=== PATIENT | female | born 1940 | race African-American/Black ===

== ENCOUNTER 2016-09-18 18:54 | Inpatient (IN) | payer BC, MEDICARE ==
[~2016-09-18] VITALS: Ht 172.7 cm; Wt 96.2 kg
[~2016-09-18 18:54] MED LIST: ASPI-482 PO; ATOR20TA PO; BUSP10TA PO; LEXAPRO20 MG PO; LISI1TAB5 PO; PREG150C PO; SENN-6 PO; ZOLP5TAB PO
[2016-09-18 20:56] LABS: BASO % 0 % (0-3); EOS % 1 % (0-3); HEMATOCRIT 37.2 % (36.0-47.0); HEMOGLOBIN 12.8 g/dL (12.0-15.5); LYMPH # 1.5 x10^3/uL (1.0-4.8); LYMPH % 16 % (24-48); MEAN CORPUSCULAR HEMOGLOBIN 32 pg (25-35); MEAN CORPUSCULAR HGB CONC 35 g/dL (31-37); MEAN CORPUSCULAR VOLUME 94 fL (79-100); MONO % 9 % (0-9); NEUT % 73 % (31-73); PLATELET COUNT 285 x10^3/uL (140-400); RED BLOOD COUNT 3.98 x10^6/uL (3.50-5.40); RED CELL DISTRIBUTION WIDTH 13.6 % (11.5-14.5); WHITE BLOOD COUNT 9.3 x10^3/uL (4.0-11.0)
[2016-09-18 21:10] LABS: CALCIUM 8.6 mg/dL (8.5-10.1); CREATININE 0.9 mg/dL (0.6-1.0); GFR 73.9; POTASSIUM 3.2 mmol/L (3.5-5.1)
[2016-09-18 21:15] LABS: ALBUMIN 3.2 g/dL (3.4-5.0); ALBUMIN/GLOBULIN RATIO 0.7 (1.0-1.7); TOTAL BILIRUBIN 0.5 mg/dL (0.2-1.0); TOTAL PROTEIN 7.6 g/dL (6.4-8.2)
[2016-09-18] MEDS: IV NORMAL SALINE 1000ML BAG 1,000 ML IV SCH (22:45)
[2016-09-18] MEDS ORDERED: ONDANSETRON PF 4 MG/2 ML VIAL. IV PRN (22:45)
[2016-09-18 23:45] VITALS: BP 208/96
[2016-09-19] VITALS (8 sets, daily range): BP systolic 145–200; BP diastolic 62–91
--- NOTE | 2016-09-19 01:34 | ED.ADGEN ---
Past Medical History Past Medical History: Cancer, High Cholesterol, Hypertension Additional Past Medical Histor: SBO, uterine ca Past Surgical History: Appendectomy, Cholecystectomy, Hysterectomy, Tonsillectomy Alcohol Use: None Drug Use: None Adult General Chief Complaint Chief Complaint: ABDOMINAL PAIN HPI HPI Patient is a 76 year old [woman, history of hypertension, obesity, uterine cancer, small bowel obstruction, was discharged from the hospital yesterday after admission for small bowel obstruction. Patient states that she was feeling better at discharge, however today she is experiencing increasing pain, abdominal distention, and vomiting. States she is nauseous at this time, denies any blood in emesis, states that she has had several loose bowel movements. Patient denies any injuries, states she has had decreased appetite due to discomfort, denies any fevers or chills, urinary complaints, any chest pain or shortness of breath. Review of Systems Review of Systems Constitutional: Denies fever or chills. [] Eyes: Denies change in visual acuity. [] HENT: Denies nasal congestion or sore throat. [] Respiratory: Denies cough or shortness of breath. [] Cardiovascular: Denies chest pain or edema. [] GI: Crampy diffuse abdominal pain, nausea, vomiting, no bloody stools, several episodes of loose brown stool. : Denies dysuria. [] Musculoskeletal: Denies back pain or joint pain. [] Integument: Denies rash. [] Neurologic: Denies headache, focal weakness or sensory changes. [] Endocrine: Denies polyuria or polydipsia. [] Lymphatic: Denies swollen glands. [] Psychiatric: Denies depression or anxiety. [] Allergies Allergies Allergies Coded Allergies Type Severity Reaction Last Updated Verified Iodinated Contrast- Oral and IV Dye Allergy Intermediate Unknown 10/09/15 Yes Penicillins Allergy Intermediate 10/09/15 Yes Physical Exam Physical Exam Constitutional: Well developed, well nourished, no acute distress, non-toxic appearance. [] HENT: Normocephalic, atraumatic, bilateral external ears normal, oropharynx moist, no oral exudates, nose normal. [] Eyes: PERRLA, EOMI, conjunctiva normal, no discharge. [] Neck: Normal range of motion, no tenderness, supple, no stridor. [] Cardiovascular:Heart rate regular rhythm, no murmur, S1, S2, no rubs or gallops. [] Lungs & Thorax: Bilateral breath sounds clear to auscultation, no wheezing, rhonchi, rales. No chest or crepitus or tenderness. [] Abdomen: Bowel sounds diminished in all quadrants, soft, patient's abdomen is distended and tympanic, tenderness palpation diffusely, no rebound, rigidity, no guarding, no masses, no pulsatile masses. [] Skin: Warm, dry, no erythema, no rash. [] Back: No tenderness, no CVA tenderness. [] Extremities: No tenderness, no cyanosis, no clubbing, ROM intact, no edema. [] Neurologic: Alert and oriented X 3, normal motor function, normal sensory function, no focal deficits noted. [] Psychologic: Affect normal, judgement normal, mood normal. [] Current Patient Data Vital Signs Vital Signs Date Time Temp Pulse Resp B/P (MAP) Pulse Ox O2 Delivery O2 Flow Rate FiO2 09/18/16 19:33 98.0 92 18 207/89 (128) 95 Room Air 98.0 Lab Values Laboratory Tests Test 09/18/16 20:45 White Blood Count 9.3 x10^3/uL (4.0-11.0) Red Blood Count 3.98 x10^6/uL (3.50-5.40) Hemoglobin 12.8 g/dL (12.0-15.5) Hematocrit 37.2 % (36.0-47.0) Mean Corpuscular Volume 94 fL (79-100) Mean Corpuscular Hemoglobin 32 pg (25-35) Mean Corpuscular Hemoglobin Concent 35 g/dL (31-37) Red Cell Distribution Width 13.6 % (11.5-14.5) Platelet Count 285 x10^3/uL (140-400) Neutrophils (%) (Auto) 73 % (31-73) Lymphocytes (%) (Auto) 16 % (24-48) L Monocytes (%) (Auto) 9 % (0-9) Eosinophils (%) (Auto) 1 % (0-3) Basophils (%) (Auto) 0 % (0-3) Neutrophils # (Auto) 6.8 x10^3uL (1.8-7.7) Lymphocytes # (Auto) 1.5 x10^3/uL (1.0-4.8) Monocytes # (Auto) 0.8 x10^3/uL (0.0-1.1) Eosinophils # (Auto) 0.1 x10^3/uL (0.0-0.7) Basophils # (Auto) 0.0 x10^3/uL (0.0-0.2) Sodium Level 143 mmol/L (136-145) Potassium Level 3.2 mmol/L (3.5-5.1) L Chloride Level 103 mmol/L (98-107) Carbon Dioxide Level 28 mmol/L (21-32) Anion Gap 12 (6-14) Blood Urea Nitrogen 6 mg/dL (7-20) L Creatinine 0.9 mg/dL (0.6-1.0) Estimated GFR (Cockcroft-Gault) 73.9 BUN/Creatinine Ratio 7 (6-20) Glucose Level 93 mg/dL (70-99) Calcium Level 8.6 mg/dL (8.5-10.1) Total Bilirubin 0.5 mg/dL (0.2-1.0) Aspartate Amino Transferase (AST) 20 U/L (15-37) Alanine Aminotransferase (ALT) 20 U/L (14-59) Alkaline Phosphatase 76 U/L (46-116) Total Protein 7.6 g/dL (6.4-8.2) Albumin 3.2 g/dL (3.4-5.0) L Albumin/Globulin Ratio 0.7 (1.0-1.7) L Laboratory Tests 09/18/16 20:45 Laboratory Tests 09/18/16 20:45 EKG EKG Not indicated. [] Radiology/Procedures Radiology/Procedures Acute abdominal series: 3 view: Patient with dilated loops of bowel noted, no air-fluid levels, no free air, cardiac silhouette is unremarkable, without evidence of infiltrates or effusion, no bony abnormality is. Concerning for recurrent small bowel obstruction. [] Course & Med Decision Making Course & Med Decision Making Pertinent Labs and Imaging studies reviewed. (See chart for details) Patient received antiemetics, IV fluids and pain medication in the ED. Acute abdominal series is concerning for small bowel obstruction, CT of abdomen and pelvis with oral contrast pending. I did discuss findings as above with Dr. Campoverde of internal medicine, will admit to the hospital nothing by mouth status , bowel rest, IV fluids, symptomatic management, for small bowel obstruction, awaiting results of CT abdomen and pelvis. Consultation for surgery placed, bridge orders entered per discussion. Patient currently with no further vomiting in the ED, no indication for NG tube placement at this time, continue symptom management and monitoring. Patient transferred to the floor without issue, to be brought back down to obtain CT of abdomen and pelvis. Will follow those results. Dragon Disclaimer Dragon Disclaimer This electronic medical record was generated, in whole or in part, using a voice recognition dictation system. Departure Impression: Primary Impression: Small bowel obstruction Additional Impressions: Abdominal pain Nausea and vomiting Disposition: ADMITTED INPATIENT Admitting Physician: Carlos Eduardo Campoverde Condition: IMPROVED Problem Qualifiers ALEJANDRA MONTIEL DO Sep 19, 2016 01:34
--- NOTE | 2016-09-19 01:43 | ACF ---
Admission Forms Criteria INTESTINAL OBSTRUCTION Clinical Indications for Admission to Inpatient Care ([place]/check or initial the applicable condition/criteria) Admission is indicated for 1 or more of the following (1)(2)(3)(4)(5)(6)(7): I. [X] Partial bowel obstruction II. Complete bowel obstruction Extended stay beyond goal length of stay may be needed for(3)(25): [ ]a) Identified etiology (eg, hernia, volvulus, cancer with obstruction) requiring intervention [ ]b) Gallstone ileus (26) [ ]c) Surgical intervention (3)(4)(5)(7)(27)(28)(29)(30): [ ]d) Acute comorbid illness (eg, electrolyte imbalance, hypovolemia, renal failure) The original [employer] content created by [employer] has been revised. The portions of the content which have been revised are identified through the use of italic text or in bold, and [facility] has neither reviewed nor approved the modified material. All other unmodified content is copyright [facility] includes the [facility]. Please see references footnoted in the original [employer] edition 2017 Admission Criteria Met?: Yes MARITZA KC Sep 19, 2016 01:43
[2016-09-19] MEDS ORDERED: hydrALAZINE 20 MG/ML VIAL. IVP PRN (01:45)
[2016-09-19] MEDS ORDERED: POTASSIUM CHLORIDE 30 MEQ in IV NORMAL SALINE 1000ML BAG 1,000 ML IV ONE (01:45)
--- NOTE | 2016-09-19 02:58 | RAD ---
INDICATION: abd pain; nausea, vomiting; eval for sbo; Readicat 450ml COMPARISON: September 07, 2016 TECHNIQUE: Axial CT images were obtained through the abdomen and pelvis without intravenous contrast. Limited assessment of solid organ structures and vasculature secondary to lack of intravenous contrast. One or more of the following individualized dose reduction techniques were utilized for this examination: 1. Automated exposure control; 2. Adjustment of the mA and/or kV according to patient size; 3. Use of iterative reconstruction technique. FINDINGS: Severe calcific atherosclerosis. Coronary artery calcific atherosclerosis partially seen. Catheter tip seen in right atrial region. No intrahepatic bile duct dilation. Poor evaluation of pancreas without contrast but no definite peripancreatic edema. Spleen unremarkable. No hydronephrosis. Bladder partially distended. Free fluid is seen within the abdomen. Colonic diverticulosis. Dilated loops of small bowel are seen proximally with distal decompression. There is also some edema within the mesentery. The small bowel loops measure up to approximately 52 mm in diameter. IMPRESSION: 1. Dilated small bowel loops with distal decompression. There is also fluid and edema seen within the mesentery. This can be seen with small bowel obstruction. 2. Calcific atherosclerosis. Electronically signed by: Manny Pate MD (09/19/2016 2:54 AM) [facility]
[2016-09-19] MEDS: fentaNYL PF VIAL 100 MCG/2 ML VIAL IV PRN ×3 (02:59→08:14)
[2016-09-19] MEDS ORDERED: MAG HYDROX/ALUMINUM HYD/SIMETH 30 ML ORAL.SUSP PO ONE (06:00)
[2016-09-19 06:15] LABS: BASO % 0 % (0-3); EOS % 1 % (0-3); HEMATOCRIT 37.5 % (36.0-47.0); HEMOGLOBIN 12.9 g/dL (12.0-15.5); LYMPH # 1.8 x10^3/uL (1.0-4.8); LYMPH % 18 % (24-48); MEAN CORPUSCULAR HEMOGLOBIN 33 pg (25-35); MEAN CORPUSCULAR HGB CONC 35 g/dL (31-37); MEAN CORPUSCULAR VOLUME 95 fL (79-100); MONO % 10 % (0-9); NEUT % 71 % (31-73); PLATELET COUNT 290 x10^3/uL (140-400); RED BLOOD COUNT 3.96 x10^6/uL (3.50-5.40); RED CELL DISTRIBUTION WIDTH 14.3 % (11.5-14.5); WHITE BLOOD COUNT 9.8 x10^3/uL (4.0-11.0)
[2016-09-19 06:25] LABS: CALCIUM 8.9 mg/dL (8.5-10.1); CREATININE 0.9 mg/dL (0.6-1.0); GFR 73.9; POTASSIUM 3.5 mmol/L (3.5-5.1)
[2016-09-19] MEDS: IV NORMAL SALINE 1000ML BAG 1,000 ML IV SCH ×2 (06:45→11:01)
[2016-09-19] MEDS: FAMOTIDINE 20 MG/2 ML VIAL IVP SCH ×2 (08:14→19:57)
--- NOTE | 2016-09-19 08:23 | RAD ---
Indication abdominal pain and vomiting for 3 days. A single view of the chest was obtained as well as flat and upright films of the abdomen. Note is made of a similar series of films 9 days ago. Postoperative changes in the chest are noted. There is a left Port-A-Cath. There is no congestive heart failure focal infiltrate significant pleural fluid collection or pneumothorax. There is no free air. There is significant dilatation of small bowel loops. Some gas is seen in the right colon but no significant gas is seen in the transverse or descending colon. The plain film findings are compatible with at least moderate bowel obstruction. No gross free air is seen. IMPRESSION: No acute finding in the chest. Plain films of the abdomen compatible with a component of bowel obstruction.
[2016-09-19] MEDS ORDERED: ACETAMINOPHEN 325 MG TABLET. PO PRN (09:30)
[2016-09-19] MEDS ORDERED: MORPHINE SULFATE 2 MG/ML DISP.SYRIN. IV PRN (09:30)
[2016-09-19] MEDS ORDERED: DOCUSATE SODIUM 100 MG CAPSULE. PO PRN (09:30)
[2016-09-19] MEDS ORDERED: BARIUM SULFATE 60% 355 ML SUSP PO ONE ×2 (10:00)
--- NOTE | 2016-09-19 10:03 | PDOC2 ---
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 Returned with abdominal pain, denies vomiting, + loose stools, however very bloated/tight abdomen. Past Medical History Cardiovascular: CAD, HTN Heme/Onc: Cancer Renal/: Other Endocrine: Diabetes Past Surgical History Past Surgical History: CABG, Hysterectomy Family History Family History: Other (noncontributory to current illness ) Social History Quit ALCOHOL: none Drugs: None Lives: Alone Current Problem List Problem List Problems Medical Problems: (1) Abdominal pain Status: Acute (2) Nausea and vomiting Status: Acute Current Medications Current Medications Current Medications Ondansetron HCl (Zofran) 4 mg PRN Q8HRS PRN IV NAUSEA/VOMITING Last administered on 09/19/16 02:59; Start 09/18/16 at 22:45; Stop 09/19/16 at 22:44 Fentanyl Citrate (Fentanyl 2ml Vial) 50 mcg PRN Q2HR PRN IV PAIN Last administered on 09/19/16 08:14; Start 09/18/16 at 22:45; Stop 09/19/16 at 22:44 Sodium Chloride 1,000 ml @ 125 mls/hr Q8H IV Last administered on 09/18/16 22 :45; Start 09/18/16 at 22:45; Stop 09/19/16 at 22:44 Hydralazine HCl (Apresoline) 10 mg PRN Q4HRS PRN IVP ELEVATED BP, SEE COMMENTS Last administered on 09/19/16 01:55; Start 09/19/16 at 01:45 Potassium Chloride 30 meq/ Sodium Chloride 1,015 ml @ 125 mls/hr 1X ONCE IV Last administered on 09/19/16 03:07; Start 09/19/16 at 01:45; Stop 09/19/16 at 09:52; Status DC Al Hydroxide/Mg Hydroxide (Mylanta Plus Xs) 15 ml 1X ONCE PO Last administered on 09/19/16 05:50; Start 09/19/16 at 06:00; Stop 09/19/16 at 06:01 ; Status DC Famotidine (Pepcid) 20 mg BID IVP Last administered on 09/19/16t 08:14; Start 09/19/16 at 09:00 Acetaminophen (Tylenol) 650 mg PRN Q6HRS PRN PO FEVER; Start 09/19/16 at 09:30 Ondansetron HCl (Zofran) 4 mg PRN Q6HRS PRN IV NAUSEA/VOMITING; Start 09/19/16 at 09:30 Morphine Sulfate 2 mg PRN Q2HR PRN IV PAIN; Start 09/19/16 at 09:30; Stop 09/19 at 09:56; Status DC Tramadol HCl (Ultram) 50 mg PRN Q6HRS PRN PO PAIN; Start 09/19/16 at 09:30 Hydralazine HCl (Apresoline) 10 mg PRN Q4HRS PRN IVP ELEVATED BP, SEE COMMENTS ; Start 09/19/16 at 09:30 Docusate Sodium (Colace) 100 mg PRN DAILY PRN PO CONSTIPATION; Start 09/19/16 at 09:30 Barium Sulfate (Liquid E-Z Paque) 355 ml 1X ONCE PO ; Start 09/19/16 at 10:00; Stop 09/19/16 at 10:01 Barium Sulfate (Liquid E-Z Paque) 355 ml 1X ONCE PO ; Start 09/19/16 at 10:00; Stop 09/19/16 at 10:01 Morphine Sulfate 2 mg PRN Q2HR PRN IV PAIN; Start 09/19/16 at 10:00 Active Scripts Active Senna S Tablet (Sennosides/Docusate Sodium) 1 Each Tablet 1 Each PO DAILY Reported Lexapro (Escitalopram Oxalate) 20 Mg Tablet 1 Tab PO DAILY Lisinopril-Hctz 20-12.5 Mg Tab (Lisinopril/Hydrochlorothiazide) 1 Each Tablet 1 Tab PO DAILY Lipitor (Atorvastatin Calcium) 20 Mg Tablet 20 Mg PO HS Ambien (Zolpidem Tartrate) 5 Mg Tablet 1 Tab PO QHS Lyrica (Pregabalin) 150 Mg Capsule 150 Mg PO BID 30 Days Buspirone Hcl 10 Mg Tablet 10 Mg PO BID Aspir 81 (Aspirin) 81 Mg Tablet.dr 1 Tab PO DAILY Allergies Allergies: Coded Allergies: Iodinated Contrast- Oral and IV Dye (Verified Allergy, Intermediate, Unknown, 10/09/15) Penicillins (Verified Allergy, Intermediate, 10/09/15) ROS General: No: Chills, Other (fevers) PSYCHOLOGICAL ROS: No: Anxiety, Depression Eyes: No Blurry vision, No Double vision HEENT: No: Heacaches, Sore Throat Hematological and Lymphatic: No: Bleeding Problems, Blood Clots Respiratory: No: Cough, Shortness of breath Cardiovascular: No Chest Pain, No Palpitations Gastrointestinal: Yes Other (see hpi) Genitourinary: No Dysuria, No Hematuria Musculoskeletal: No Joint Pain, No Muscle Pain Neurological: No Impaired Coord/balance, No Numbness/Tingling Skin: No Pruritus, No Rash Physical Exam General: Alert, Oriented X3, Cooperative, No acute distress HEENT: PERRLA, Mucous membr. moist/pink Lungs: Clear to auscultation, Normal air movement Heart: Regular rate, Normal S1, Normal S2, No murmurs Abdomen: Soft, Other (moderate distention, nontender) Extremities: No clubbing, No cyanosis Skin: No rashes, No breakdown Neuro: Normal gait, Normal speech Psych/Mental Status: Mental status NL, Mood NL MUSCULOSKELETAL: No deformity, No swelling Vitals VITALS Vital Signs Date Time Temp Pulse Resp B/P (MAP) Pulse Ox O2 Delivery O2 Flow Rate FiO2 09/19/16 08:44 Room Air 09/19/16 07:00 98.4 83 20 179/69 (105) 95 98.4 Labs Labs Laboratory Tests Test 09/18/16 20:45 09/19/16 00:01 09/19/16 04:30 White Blood Count 9.3 x10^3/uL (4.0-11.0) 9.8 x10^3/uL (4.0-11.0) Red Blood Count 3.98 x10^6/uL (3.50-5.40) 3.96 x10^6/uL (3.50-5.40) Hemoglobin 12.8 g/dL (12.0-15.5) 12.9 g/dL (12.0-15.5) Hematocrit 37.2 % (36.0-47.0) 37.5 % (36.0-47.0) Mean Corpuscular Volume 94 fL (79-100) 95 fL (79-100) Mean Corpuscular Hemoglobin 32 pg (25-35) 33 pg (25-35) Mean Corpuscular Hemoglobin Concent 35 g/dL (31-37) 35 g/dL (31-37) Red Cell Distribution Width 13.6 % (11.5-14.5) 14.3 % (11.5-14.5) Platelet Count 285 x10^3/uL (140-400) 290 x10^3/uL (140-400) Neutrophils (%) (Auto) 73 % (31-73) 71 % (31-73) Lymphocytes (%) (Auto) 16 % (24-48) 18 % (24-48) Monocytes (%) (Auto) 9 % (0-9) 10 % (0-9) Eosinophils (%) (Auto) 1 % (0-3) 1 % (0-3) Basophils (%) (Auto) 0 % (0-3) 0 % (0-3) Neutrophils # (Auto) 6.8 x10^3uL (1.8-7.7) 6.9 x10^3uL (1.8-7.7) Lymphocytes # (Auto) 1.5 x10^3/uL (1.0-4.8) 1.8 x10^3/uL (1.0-4.8) Monocytes # (Auto) 0.8 x10^3/uL (0.0-1.1) 1.0 x10^3/uL (0.0-1.1) Eosinophils # (Auto) 0.1 x10^3/uL (0.0-0.7) 0.1 x10^3/uL (0.0-0.7) Basophils # (Auto) 0.0 x10^3/uL (0.0-0.2) 0.0 x10^3/uL (0.0-0.2) Sodium Level 143 mmol/L (136-145) 144 mmol/L (136-145) Potassium Level 3.2 mmol/L (3.5-5.1) 3.5 mmol/L (3.5-5.1) Chloride Level 103 mmol/L (98-107) 103 mmol/L (98-107) Carbon Dioxide Level 28 mmol/L (21-32) 30 mmol/L (21-32) Anion Gap 12 (6-14) 11 (6-14) Blood Urea Nitrogen 6 mg/dL (7-20) 6 mg/dL (7-20) Creatinine 0.9 mg/dL (0.6-1.0) 0.9 mg/dL (0.6-1.0) Estimated GFR (Cockcroft-Gault) 73.9 73.9 BUN/Creatinine Ratio 7 (6-20) Glucose Level 93 mg/dL (70-99) 69 mg/dL (70-99) Calcium Level 8.6 mg/dL (8.5-10.1) 8.9 mg/dL (8.5-10.1) Total Bilirubin 0.5 mg/dL (0.2-1.0) Aspartate Amino Transf (AST/SGOT) 20 U/L (15-37) Alanine Aminotransferase (ALT/SGPT) 20 U/L (14-59) Alkaline Phosphatase 76 U/L (46-116) Total Protein 7.6 g/dL (6.4-8.2) Albumin 3.2 g/dL (3.4-5.0) Albumin/Globulin Ratio 0.7 (1.0-1.7) Lactic Acid Level 1.1 mmol/L (0.4-2.0) Laboratory Tests Test 09/18/16 20:45 09/19/16 00:01 09/19/16 04:30 White Blood Count 9.3 x10^3/uL (4.0-11.0) 9.8 x10^3/uL (4.0-11.0) Red Blood Count 3.98 x10^6/uL (3.50-5.40) 3.96 x10^6/uL (3.50-5.40) Hemoglobin 12.8 g/dL (12.0-15.5) 12.9 g/dL (12.0-15.5) Hematocrit 37.2 % (36.0-47.0) 37.5 % (36.0-47.0) Mean Corpuscular Volume 94 fL (79-100) 95 fL (79-100) Mean Corpuscular Hemoglobin 32 pg (25-35) 33 pg (25-35) Mean Corpuscular Hemoglobin Concent 35 g/dL (31-37) 35 g/dL (31-37) Red Cell Distribution Width 13.6 % (11.5-14.5) 14.3 % (11.5-14.5) Platelet Count 285 x10^3/uL (140-400) 290 x10^3/uL (140-400) Neutrophils (%) (Auto) 73 % (31-73) 71 % (31-73) Lymphocytes (%) (Auto) 16 % (24-48) 18 % (24-48) Monocytes (%) (Auto) 9 % (0-9) 10 % (0-9) Eosinophils (%) (Auto) 1 % (0-3) 1 % (0-3) Basophils (%) (Auto) 0 % (0-3) 0 % (0-3) Neutrophils # (Auto) 6.8 x10^3uL (1.8-7.7) 6.9 x10^3uL (1.8-7.7) Lymphocytes # (Auto) 1.5 x10^3/uL (1.0-4.8) 1.8 x10^3/uL (1.0-4.8) Monocytes # (Auto) 0.8 x10^3/uL (0.0-1.1) 1.0 x10^3/uL (0.0-1.1) Eosinophils # (Auto) 0.1 x10^3/uL (0.0-0.7) 0.1 x10^3/uL (0.0-0.7) Basophils # (Auto) 0.0 x10^3/uL (0.0-0.2) 0.0 x10^3/uL (0.0-0.2) Sodium Level 143 mmol/L (136-145) 144 mmol/L (136-145) Potassium Level 3.2 mmol/L (3.5-5.1) 3.5 mmol/L (3.5-5.1) Chloride Level 103 mmol/L (98-107) 103 mmol/L (98-107) Carbon Dioxide Level 28 mmol/L (21-32) 30 mmol/L (21-32) Anion Gap 12 (6-14) 11 (6-14) Blood Urea Nitrogen 6 mg/dL (7-20) 6 mg/dL (7-20) Creatinine 0.9 mg/dL (0.6-1.0) 0.9 mg/dL (0.6-1.0) Estimated GFR (Cockcroft-Gault) 73.9 73.9 BUN/Creatinine Ratio 7 (6-20) Glucose Level 93 mg/dL (70-99) 69 mg/dL (70-99) Calcium Level 8.6 mg/dL (8.5-10.1) 8.9 mg/dL (8.5-10.1) Total Bilirubin 0.5 mg/dL (0.2-1.0) Aspartate Amino Transf (AST/SGOT) 20 U/L (15-37) Alanine Aminotransferase (ALT/SGPT) 20 U/L (14-59) Alkaline Phosphatase 76 U/L (46-116) Total Protein 7.6 g/dL (6.4-8.2) Albumin 3.2 g/dL (3.4-5.0) Albumin/Globulin Ratio 0.7 (1.0-1.7) Lactic Acid Level 1.1 mmol/L (0.4-2.0) Images Images reviewed CT/xrays Assessment/Plan Assessment/Plan sb dilation concerning for SBO, recent SBO having loose stools, cdiff pending will place NG to LIS for decompression will check acute abdominal films in AM d/w Dr Albright--hold off on SBFT(no barium--as has possible SBO) ROMI BARBOZA MD 09/19/16 1505: CONSULT Allergies Allergies: Coded Allergies: Iodinated Contrast- Oral and IV Dye (Verified Allergy, Intermediate, Unknown, 10/09/15) Penicillins (Verified Allergy, Intermediate, 10/09/15) Assessment/Plan Assessment/Plan pt seen, interviewed and examined agree with above Dr Carrillo to follow over the weekend Thanks for consult XAVIER POLK APRN Sep 19, 2016 10:03 ROMI BARBOZA MD Sep 19, 2016 15:05
[2016-09-19] MEDS: MORPHINE SULFATE 4 MG/ML DISP.SYRIN. IV PRN ×2 (10:09→13:37)
[2016-09-19] MEDS ORDERED: PHENOL ORAL SPRAY 177ML BOTTLE. PO PRN (10:15)
--- NOTE | 2016-09-19 10:32 | RAD ---
Indication distended abdomen. A single view of the abdomen was obtained at 09 27 and is compared to a study approximately 13 hours earlier. There are dilated loops of small bowel similar to the previous exam. There has not been a significant change in the appearance of the abdomen on the single film obtained relative to the prior exam. IMPRESSION:: Persistent dilatation of small bowel loops similar to the examination approximately 13 hours earlier
--- NOTE | 2016-09-19 12:18 | PDOC1 ---
History and Physical Date of Admission Date of Admission 09/18/16 Identification/Chief Complaint Chief Complaint abd pain Problems: Source Source: Chart review, Patient History of Present Illness History of Present Illness HPI HPI Patient is a 76 year old [woman, history of hypertension, obesity, uterine cancer, small bowel obstruction, was dced from here on Thu for sbo. pt had one time N/V on Thu, then started to have severe abd pain on . She said she was not prescribed pain meds when dced. The pain is located at whole abd, mainly middle, constant, 09/18. She now feels abd pain much better with meds, but has severe distended abd, has BM today, no N/V. CT showed sbo. no fever, chills, sob, cough. Past Medical History Cardiovascular: CAD, HTN Heme/Onc: Cancer Renal/: Other Endocrine: Diabetes Past Surgical History Past Surgical History: CABG, Hysterectomy Family History Family History: Other (noncontributory to current illness ) Social History Smoke: No ALCOHOL: none Drugs: None Current Problem List Problem List Problems Medical Problems: (1) Abdominal pain Status: Acute (2) Nausea and vomiting Status: Acute Current Medications Current Medications Current Medications Medications (Trade) Dose Ordered Sig/Marco Start Time Stop Time Status Last Admin Dose Admin Acetaminophen (Tylenol) 650 mg PRN Q6HRS PRN 09/19/16 09:30 Al Hydroxide/Mg Hydroxide (Mylanta Plus Xs) 15 ml 1X ONCE 09/19/16 06:00 09/19/16 06:01 DC 09/19/16 05:50 15 ML Barium Sulfate (Liquid E-Z Paque) 355 ml 1X ONCE 09/19/16 10:00 09/19/16 10:01 DC Docusate Sodium (Colace) 100 mg PRN DAILY PRN 09/19/16 09:30 Famotidine (Pepcid) 20 mg BID 09/19/16 09:00 09/19/16 08:14 20 MG Fentanyl Citrate (Fentanyl 2ml Vial) 50 mcg PRN Q2HR PRN 09/18/16 22:45 09/19/16 22:44 09/19/16 08:14 50 MCG Hydralazine HCl (Apresoline) 10 mg PRN Q4HRS PRN 09/19/16 09:30 Morphine Sulfate 2 mg PRN Q2HR PRN 09/19/16 10:00 09/19/16 10:09 2 MG Ondansetron HCl (Zofran) 4 mg PRN Q6HRS PRN 09/19/16 09:30 Potassium Chloride 30 meq/ Sodium Chloride 1,015 ml @ 125 mls/hr 1X ONCE 09/19/16 01:45 09/19/16 09:52 DC 09/19/16 03:07 125 MLS/HR Sodium Chloride 1,000 ml @ 125 mls/hr Q8H 09/18/16 22:45 09/19/16 22:44 09/19/16 11:01 125 MLS/HR Throat Lozenges (Chloraseptic) 1 spray PRN Q2HR PRN 09/19/16 10:15 09/19/16 11:01 1 SPRAY Tramadol HCl (Ultram) 50 mg PRN Q6HRS PRN 09/19/16 09:30 Allergies Allergies Allergies Coded Allergies Type Severity Reaction Last Updated Verified Iodinated Contrast- Oral and IV Dye Allergy Intermediate Unknown 10/09/15 Yes Penicillins Allergy Intermediate 10/09/15 Yes ROS Review of System CONSTITUTIONAL: No fever or chills EYES: No recent changes SKIN: No rash or itching CARDIOVASCULAR: No chest pain, syncope, palpitations, or edema RESPIRATORY: No SOB or cough GASTROINTESTINAL: No nausea, vomiting or abdominal pain NEUROLOGICAL: No headaches or weakness ENDOCRINE: No cold or heat intolerance GENITOURINARY: No urgency or frequency of urination MUSCULOSKELETAL: No back pain or joint pain LYMPHATICS: No enlarged lymph nodes PSYCHIATRIC: No anxiety or depression Physical Exam Physical Exam GEN.: No apparent distress. Alert and oriented. HEENT: Head is normocephalic, atraumatic NECK: Supple. LUNGS: Clear to auscultation. HEART: RRR, S1, S2 present. Peripheral pulses intact. bl sternal border 3/6 systolic murmur. ABDOMEN: Sot, decreased bs, moderate distended abd, mild tenderness EXTREMITIES: Without any cyanosis. NEUROLOGIC: Normal speech, normal tone PSYCHIATRIC: Normal affect, normal mood. SKIN: No ulcerations Vitals Vitals Vital Signs Date Time Temp Pulse Resp B/P (MAP) Pulse Ox O2 Delivery O2 Flow Rate FiO2 09/19/16 11:00 98.1 68 20 145/63 (90) 91 Room Air 98.1 Labs Labs Laboratory Tests Test 09/18/16 20:45 09/19/16 00:01 09/19/16 04:30 White Blood Count 9.3 x10^3/uL (4.0-11.0) 9.8 x10^3/uL (4.0-11.0) Red Blood Count 3.98 x10^6/uL (3.50-5.40) 3.96 x10^6/uL (3.50-5.40) Hemoglobin 12.8 g/dL (12.0-15.5) 12.9 g/dL (12.0-15.5) Hematocrit 37.2 % (36.0-47.0) 37.5 % (36.0-47.0) Mean Corpuscular Volume 94 fL (79-100) 95 fL (79-100) Mean Corpuscular Hemoglobin 32 pg (25-35) 33 pg (25-35) Mean Corpuscular Hemoglobin Concent 35 g/dL (31-37) 35 g/dL (31-37) Red Cell Distribution Width 13.6 % (11.5-14.5) 14.3 % (11.5-14.5) Platelet Count 285 x10^3/uL (140-400) 290 x10^3/uL (140-400) Neutrophils (%) (Auto) 73 % (31-73) 71 % (31-73) Lymphocytes (%) (Auto) 16 % (24-48) 18 % (24-48) Monocytes (%) (Auto) 9 % (0-9) 10 % (0-9) Eosinophils (%) (Auto) 1 % (0-3) 1 % (0-3) Basophils (%) (Auto) 0 % (0-3) 0 % (0-3) Neutrophils # (Auto) 6.8 x10^3uL (1.8-7.7) 6.9 x10^3uL (1.8-7.7) Lymphocytes # (Auto) 1.5 x10^3/uL (1.0-4.8) 1.8 x10^3/uL (1.0-4.8) Monocytes # (Auto) 0.8 x10^3/uL (0.0-1.1) 1.0 x10^3/uL (0.0-1.1) Eosinophils # (Auto) 0.1 x10^3/uL (0.0-0.7) 0.1 x10^3/uL (0.0-0.7) Basophils # (Auto) 0.0 x10^3/uL (0.0-0.2) 0.0 x10^3/uL (0.0-0.2) Sodium Level 143 mmol/L (136-145) 144 mmol/L (136-145) Potassium Level 3.2 mmol/L (3.5-5.1) 3.5 mmol/L (3.5-5.1) Chloride Level 103 mmol/L (98-107) 103 mmol/L (98-107) Carbon Dioxide Level 28 mmol/L (21-32) 30 mmol/L (21-32) Anion Gap 12 (6-14) 11 (6-14) Blood Urea Nitrogen 6 mg/dL (7-20) 6 mg/dL (7-20) Creatinine 0.9 mg/dL (0.6-1.0) 0.9 mg/dL (0.6-1.0) Estimated GFR (Cockcroft-Gault) 73.9 73.9 BUN/Creatinine Ratio 7 (6-20) Glucose Level 93 mg/dL (70-99) 69 mg/dL (70-99) Calcium Level 8.6 mg/dL (8.5-10.1) 8.9 mg/dL (8.5-10.1) Total Bilirubin 0.5 mg/dL (0.2-1.0) Aspartate Amino Transf (AST/SGOT) 20 U/L (15-37) Alanine Aminotransferase (ALT/SGPT) 20 U/L (14-59) Alkaline Phosphatase 76 U/L (46-116) Total Protein 7.6 g/dL (6.4-8.2) Albumin 3.2 g/dL (3.4-5.0) Albumin/Globulin Ratio 0.7 (1.0-1.7) Lactic Acid Level 1.1 mmol/L (0.4-2.0) Laboratory Tests Test 09/18/16 20:45 09/19/16 00:01 09/19/16 04:30 White Blood Count 9.3 x10^3/uL (4.0-11.0) 9.8 x10^3/uL (4.0-11.0) Red Blood Count 3.98 x10^6/uL (3.50-5.40) 3.96 x10^6/uL (3.50-5.40) Hemoglobin 12.8 g/dL (12.0-15.5) 12.9 g/dL (12.0-15.5) Hematocrit 37.2 % (36.0-47.0) 37.5 % (36.0-47.0) Mean Corpuscular Volume 94 fL (79-100) 95 fL (79-100) Mean Corpuscular Hemoglobin 32 pg (25-35) 33 pg (25-35) Mean Corpuscular Hemoglobin Concent 35 g/dL (31-37) 35 g/dL (31-37) Red Cell Distribution Width 13.6 % (11.5-14.5) 14.3 % (11.5-14.5) Platelet Count 285 x10^3/uL (140-400) 290 x10^3/uL (140-400) Neutrophils (%) (Auto) 73 % (31-73) 71 % (31-73) Lymphocytes (%) (Auto) 16 % (24-48) 18 % (24-48) Monocytes (%) (Auto) 9 % (0-9) 10 % (0-9) Eosinophils (%) (Auto) 1 % (0-3) 1 % (0-3) Basophils (%) (Auto) 0 % (0-3) 0 % (0-3) Neutrophils # (Auto) 6.8 x10^3uL (1.8-7.7) 6.9 x10^3uL (1.8-7.7) Lymphocytes # (Auto) 1.5 x10^3/uL (1.0-4.8) 1.8 x10^3/uL (1.0-4.8) Monocytes # (Auto) 0.8 x10^3/uL (0.0-1.1) 1.0 x10^3/uL (0.0-1.1) Eosinophils # (Auto) 0.1 x10^3/uL (0.0-0.7) 0.1 x10^3/uL (0.0-0.7) Basophils # (Auto) 0.0 x10^3/uL (0.0-0.2) 0.0 x10^3/uL (0.0-0.2) Sodium Level 143 mmol/L (136-145) 144 mmol/L (136-145) Potassium Level 3.2 mmol/L (3.5-5.1) 3.5 mmol/L (3.5-5.1) Chloride Level 103 mmol/L (98-107) 103 mmol/L (98-107) Carbon Dioxide Level 28 mmol/L (21-32) 30 mmol/L (21-32) Anion Gap 12 (6-14) 11 (6-14) Blood Urea Nitrogen 6 mg/dL (7-20) 6 mg/dL (7-20) Creatinine 0.9 mg/dL (0.6-1.0) 0.9 mg/dL (0.6-1.0) Estimated GFR (Cockcroft-Gault) 73.9 73.9 BUN/Creatinine Ratio 7 (6-20) Glucose Level 93 mg/dL (70-99) 69 mg/dL (70-99) Calcium Level 8.6 mg/dL (8.5-10.1) 8.9 mg/dL (8.5-10.1) Total Bilirubin 0.5 mg/dL (0.2-1.0) Aspartate Amino Transf (AST/SGOT) 20 U/L (15-37) Alanine Aminotransferase (ALT/SGPT) 20 U/L (14-59) Alkaline Phosphatase 76 U/L (46-116) Total Protein 7.6 g/dL (6.4-8.2) Albumin 3.2 g/dL (3.4-5.0) Albumin/Globulin Ratio 0.7 (1.0-1.7) Lactic Acid Level 1.1 mmol/L (0.4-2.0) VTE Prophylaxis Ordered VTE Prophylaxis Devices: Yes VTE Pharmacological Prophylaxi: Yes Assessment/Plan Assessment/Plan sbo, 2/2 adhesion likely recent sbo self resolved htn urgency hld h/o CAD post CABG dm2 on diet control hypokalemia obesity plan: fu with sx, kUB repeated showed sbo, AXR tmr NGT npo ivf hold po home meds dvt, gi ppx pain control SELVIN PIMENTEL MD Sep 19, 2016 12:18
--- NOTE | 2016-09-19 12:19 | RAD ---
Indication assess nasogastric tube placement. A film targeted to the lower chest and upper abdomen was obtained. Dilated loops of bowel are seen. A nasogastric tube has its tip in the body of the stomach. IMPRESSION: NG tube in the stomach
[2016-09-19] MEDS: HEPARIN PF for SUB-Q USE 5,000 UNIT/0.5 ML VIAL. SQ SCH ×2 (13:44→22:47)
[2016-09-19] MEDS: hydrALAZINE 20 MG/ML VIAL. IVP PRN (19:57)
[2016-09-20 03:00] VITALS: BP 140/61
[2016-09-20 05:15] LABS: BASO % 0 % (0-3); EOS % 1 % (0-3); HEMATOCRIT 35.1 % (36.0-47.0); HEMOGLOBIN 11.7 g/dL (12.0-15.5); LYMPH # 1.5 x10^3/uL (1.0-4.8); LYMPH % 22 % (24-48); MEAN CORPUSCULAR HEMOGLOBIN 32 pg (25-35); MEAN CORPUSCULAR HGB CONC 33 g/dL (31-37); MEAN CORPUSCULAR VOLUME 96 fL (79-100); MONO % 10 % (0-9); NEUT % 68 % (31-73); PLATELET COUNT 270 x10^3/uL (140-400); RED BLOOD COUNT 3.64 x10^6/uL (3.50-5.40); RED CELL DISTRIBUTION WIDTH 13.9 % (11.5-14.5); WHITE BLOOD COUNT 7.2 x10^3/uL (4.0-11.0)
[2016-09-20 05:32] LABS: CALCIUM 8.1 mg/dL (8.5-10.1); CREATININE 0.8 mg/dL (0.6-1.0); GFR 84.6; POTASSIUM 3.7 mmol/L (3.5-5.1)
[2016-09-20] MEDS: HEPARIN PF for SUB-Q USE 5,000 UNIT/0.5 ML VIAL. SQ SCH ×3 (05:36→22:33)
[2016-09-20 07:29] VITALS: BP 177/55
[2016-09-20] MEDS: FAMOTIDINE 20 MG/2 ML VIAL IVP SCH ×2 (08:08→22:32)
[2016-09-20] MEDS: AMINO AC 3%/ELECTROLYTE/GLYCER 1,000 ML IV SCH ×2 (08:59→22:32)
[2016-09-20] MEDS: MORPHINE SULFATE 4 MG/ML DISP.SYRIN. IV PRN ×4 (09:30→20:14)
[2016-09-20 11:00] VITALS: BP 166/69
--- NOTE | 2016-09-20 11:43 | PDOC ---
PROGRESS NOTES Chief Complaint Chief Complaint CC abdominal pain (SBO) Uterine CA hypercholesterolemia HTN SBO History of Present Illness History of Present Illness 76 y/o F with CC of abdominal pain (diagnosed as SBO) pt was AO3, pleasant but appeared weak pt was assessed at bedside and complained of being bloated pt was on active NG suction (LOW intermittent - 300 cc greenish color liquid) hold off on SBFT until surgery agrees pt was on PPN low bgl 65 will give half amp of d50 as per ERICKA RN Vitals Vitals Vital Signs Date Time Temp Pulse Resp B/P (MAP) Pulse Ox O2 Delivery O2 Flow Rate FiO2 09/20/16 11:00 97.5 69 16 166/69 (101) 97 Room Air 97.5 Physical Exam General: Alert, Oriented X3, Cooperative, No acute distress Heart: Regular rate, Normal S1, Normal S2, No murmurs Lungs: Clear, Other Abdomen: Soft, Other (bloating and tightness) Extremities: No clubbing, No cyanosis Skin: No rashes, No breakdown Labs LABS Laboratory Tests Test 09/20/16 04:40 09/20/16 11:22 White Blood Count 7.2 x10^3/uL (4.0-11.0) Red Blood Count 3.64 x10^6/uL (3.50-5.40) Hemoglobin 11.7 g/dL (12.0-15.5) Hematocrit 35.1 % (36.0-47.0) Mean Corpuscular Volume 96 fL (79-100) Mean Corpuscular Hemoglobin 32 pg (25-35) Mean Corpuscular Hemoglobin Concent 33 g/dL (31-37) Red Cell Distribution Width 13.9 % (11.5-14.5) Platelet Count 270 x10^3/uL (140-400) Neutrophils (%) (Auto) 68 % (31-73) Lymphocytes (%) (Auto) 22 % (24-48) Monocytes (%) (Auto) 10 % (0-9) Eosinophils (%) (Auto) 1 % (0-3) Basophils (%) (Auto) 0 % (0-3) Neutrophils # (Auto) 4.9 x10^3uL (1.8-7.7) Lymphocytes # (Auto) 1.5 x10^3/uL (1.0-4.8) Monocytes # (Auto) 0.7 x10^3/uL (0.0-1.1) Eosinophils # (Auto) 0.1 x10^3/uL (0.0-0.7) Basophils # (Auto) 0.0 x10^3/uL (0.0-0.2) Sodium Level 142 mmol/L (136-145) Potassium Level 3.7 mmol/L (3.5-5.1) Chloride Level 105 mmol/L (98-107) Carbon Dioxide Level 25 mmol/L (21-32) Anion Gap 12 (6-14) Blood Urea Nitrogen 5 mg/dL (7-20) Creatinine 0.8 mg/dL (0.6-1.0) Estimated GFR (Cockcroft-Gault) 84.6 Glucose Level 65 mg/dL (70-99) Calcium Level 8.1 mg/dL (8.5-10.1) Glucose (Fingerstick) 65 mg/dL (70-99) Review of Systems Review of Systems pt appeared weak pt complained of no NVD abdominal tightness and bloating Assessment and Plan Assessmemt and Plan CC abdominal pain (SBO) Uterine CA hypercholesterolemia HTN SBO PLAN -npo -IVF -DVT proph cont -pain control PRN -awaiting surgery approval for SBFT -monitor bgl (given half amp of d50) Problems: Comment Review of Relevant I have reviewed the following items anita (where applicable) has been applied. Labs Laboratory Tests Test 09/18/16 20:45 09/19/16 00:01 09/19/16 04:30 09/19/16 05:00 White Blood Count 9.3 x10^3/uL (4.0-11.0) 9.8 x10^3/uL (4.0-11.0) Red Blood Count 3.98 x10^6/uL (3.50-5.40) 3.96 x10^6/uL (3.50-5.40) Hemoglobin 12.8 g/dL (12.0-15.5) 12.9 g/dL (12.0-15.5) Hematocrit 37.2 % (36.0-47.0) 37.5 % (36.0-47.0) Mean Corpuscular Volume 94 fL (79-100) 95 fL (79-100) Mean Corpuscular Hemoglobin 32 pg (25-35) 33 pg (25-35) Mean Corpuscular Hemoglobin Concent 35 g/dL (31-37) 35 g/dL (31-37) Red Cell Distribution Width 13.6 % (11.5-14.5) 14.3 % (11.5-14.5) Platelet Count 285 x10^3/uL (140-400) 290 x10^3/uL (140-400) Neutrophils (%) (Auto) 73 % (31-73) 71 % (31-73) Lymphocytes (%) (Auto) 16 % (24-48) 18 % (24-48) Monocytes (%) (Auto) 9 % (0-9) 10 % (0-9) Eosinophils (%) (Auto) 1 % (0-3) 1 % (0-3) Basophils (%) (Auto) 0 % (0-3) 0 % (0-3) Neutrophils # (Auto) 6.8 x10^3uL (1.8-7.7) 6.9 x10^3uL (1.8-7.7) Lymphocytes # (Auto) 1.5 x10^3/uL (1.0-4.8) 1.8 x10^3/uL (1.0-4.8) Monocytes # (Auto) 0.8 x10^3/uL (0.0-1.1) 1.0 x10^3/uL (0.0-1.1) Eosinophils # (Auto) 0.1 x10^3/uL (0.0-0.7) 0.1 x10^3/uL (0.0-0.7) Basophils # (Auto) 0.0 x10^3/uL (0.0-0.2) 0.0 x10^3/uL (0.0-0.2) Sodium Level 143 mmol/L (136-145) 144 mmol/L (136-145) Potassium Level 3.2 mmol/L (3.5-5.1) 3.5 mmol/L (3.5-5.1) Chloride Level 103 mmol/L (98-107) 103 mmol/L (98-107) Carbon Dioxide Level 28 mmol/L (21-32) 30 mmol/L (21-32) Anion Gap 12 (6-14) 11 (6-14) Blood Urea Nitrogen 6 mg/dL (7-20) 6 mg/dL (7-20) Creatinine 0.9 mg/dL (0.6-1.0) 0.9 mg/dL (0.6-1.0) Estimated GFR (Cockcroft-Gault) 73.9 73.9 BUN/Creatinine Ratio 7 (6-20) Glucose Level 93 mg/dL (70-99) 69 mg/dL (70-99) Calcium Level 8.6 mg/dL (8.5-10.1) 8.9 mg/dL (8.5-10.1) Total Bilirubin 0.5 mg/dL (0.2-1.0) Aspartate Amino Transf (AST/SGOT) 20 U/L (15-37) Alanine Aminotransferase (ALT/SGPT) 20 U/L (14-59) Alkaline Phosphatase 76 U/L (46-116) Total Protein 7.6 g/dL (6.4-8.2) Albumin 3.2 g/dL (3.4-5.0) Albumin/Globulin Ratio 0.7 (1.0-1.7) Lactic Acid Level 1.1 mmol/L (0.4-2.0) Clostridium difficile Toxin (PCR) Negative (Negative) Test 09/20/16 04:40 09/20/16 11:22 White Blood Count 7.2 x10^3/uL (4.0-11.0) Red Blood Count 3.64 x10^6/uL (3.50-5.40) Hemoglobin 11.7 g/dL (12.0-15.5) Hematocrit 35.1 % (36.0-47.0) Mean Corpuscular Volume 96 fL (79-100) Mean Corpuscular Hemoglobin 32 pg (25-35) Mean Corpuscular Hemoglobin Concent 33 g/dL (31-37) Red Cell Distribution Width 13.9 % (11.5-14.5) Platelet Count 270 x10^3/uL (140-400) Neutrophils (%) (Auto) 68 % (31-73) Lymphocytes (%) (Auto) 22 % (24-48) Monocytes (%) (Auto) 10 % (0-9) Eosinophils (%) (Auto) 1 % (0-3) Basophils (%) (Auto) 0 % (0-3) Neutrophils # (Auto) 4.9 x10^3uL (1.8-7.7) Lymphocytes # (Auto) 1.5 x10^3/uL (1.0-4.8) Monocytes # (Auto) 0.7 x10^3/uL (0.0-1.1) Eosinophils # (Auto) 0.1 x10^3/uL (0.0-0.7) Basophils # (Auto) 0.0 x10^3/uL (0.0-0.2) Sodium Level 142 mmol/L (136-145) Potassium Level 3.7 mmol/L (3.5-5.1) Chloride Level 105 mmol/L (98-107) Carbon Dioxide Level 25 mmol/L (21-32) Anion Gap 12 (6-14) Blood Urea Nitrogen 5 mg/dL (7-20) Creatinine 0.8 mg/dL (0.6-1.0) Estimated GFR (Cockcroft-Gault) 84.6 Glucose Level 65 mg/dL (70-99) Calcium Level 8.1 mg/dL (8.5-10.1) Glucose (Fingerstick) 65 mg/dL (70-99) Laboratory Tests Test 09/20/16 04:40 09/20/16 11:22 White Blood Count 7.2 x10^3/uL (4.0-11.0) Red Blood Count 3.64 x10^6/uL (3.50-5.40) Hemoglobin 11.7 g/dL (12.0-15.5) Hematocrit 35.1 % (36.0-47.0) Mean Corpuscular Volume 96 fL (79-100) Mean Corpuscular Hemoglobin 32 pg (25-35) Mean Corpuscular Hemoglobin Concent 33 g/dL (31-37) Red Cell Distribution Width 13.9 % (11.5-14.5) Platelet Count 270 x10^3/uL (140-400) Neutrophils (%) (Auto) 68 % (31-73) Lymphocytes (%) (Auto) 22 % (24-48) Monocytes (%) (Auto) 10 % (0-9) Eosinophils (%) (Auto) 1 % (0-3) Basophils (%) (Auto) 0 % (0-3) Neutrophils # (Auto) 4.9 x10^3uL (1.8-7.7) Lymphocytes # (Auto) 1.5 x10^3/uL (1.0-4.8) Monocytes # (Auto) 0.7 x10^3/uL (0.0-1.1) Eosinophils # (Auto) 0.1 x10^3/uL (0.0-0.7) Basophils # (Auto) 0.0 x10^3/uL (0.0-0.2) Sodium Level 142 mmol/L (136-145) Potassium Level 3.7 mmol/L (3.5-5.1) Chloride Level 105 mmol/L (98-107) Carbon Dioxide Level 25 mmol/L (21-32) Anion Gap 12 (6-14) Blood Urea Nitrogen 5 mg/dL (7-20) Creatinine 0.8 mg/dL (0.6-1.0) Estimated GFR (Cockcroft-Gault) 84.6 Glucose Level 65 mg/dL (70-99) Calcium Level 8.1 mg/dL (8.5-10.1) Glucose (Fingerstick) 65 mg/dL (70-99) Medications Current Medications Ondansetron HCl (Zofran) 4 mg PRN Q8HRS PRN IV NAUSEA/VOMITING Last administered on 09/19/16 02:59; Start 09/18/16 at 22:45; Stop 09/19/16 at 22:44 ; Status DC Fentanyl Citrate (Fentanyl 2ml Vial) 50 mcg PRN Q2HR PRN IV PAIN Last administered on 09/19/16 08:14; Start 09/18/16 at 22:45; Stop 09/19/16 at 22:44 ; Status DC Sodium Chloride 1,000 ml @ 125 mls/hr Q8H IV Last administered on 09/19/16 11 :01; Start 09/18/16 at 22:45; Stop 09/19/16 at 22:44; Status DC Hydralazine HCl (Apresoline) 10 mg PRN Q4HRS PRN IVP ELEVATED BP, SEE COMMENTS Last administered on 09/19/16 01:55; Start 09/19/16 at 01:45; Stop 09/19/16 at 12:24; Status DC Potassium Chloride 30 meq/ Sodium Chloride 1,015 ml @ 125 mls/hr 1X ONCE IV Last administered on 09/19/16 03:07; Start 09/19/16 at 01:45; Stop 09/19/16 at 09:52; Status DC Al Hydroxide/Mg Hydroxide (Mylanta Plus Xs) 15 ml 1X ONCE PO Last administered on 09/19/16 05:50; Start 09/19/16 at 06:00; Stop 09/19/16 at 06:01 ; Status DC Famotidine (Pepcid) 20 mg BID IVP Last administered on 09/20/16 08:08; Start 09/19/16 at 09:00 Acetaminophen (Tylenol) 650 mg PRN Q6HRS PRN PO FEVER; Start 09/19/16 at 09:30 Ondansetron HCl (Zofran) 4 mg PRN Q6HRS PRN IV NAUSEA/VOMITING; Start 09/19/16 at 09:30 Morphine Sulfate 2 mg PRN Q2HR PRN IV PAIN; Start 09/19/16 at 09:30; Stop 09/19 at 09:56; Status DC Tramadol HCl (Ultram) 50 mg PRN Q6HRS PRN PO PAIN; Start 09/19/16 at 09:30 Hydralazine HCl (Apresoline) 10 mg PRN Q4HRS PRN IVP ELEVATED BP, SEE COMMENTS Last administered on 09/19/16 19:57; Start 09/19/16 at 09:30 Docusate Sodium (Colace) 100 mg PRN DAILY PRN PO CONSTIPATION; Start 09/19/16 at 09:30 Barium Sulfate (Liquid E-Z Paque) 355 ml 1X ONCE PO ; Start 09/19/16 at 10:00; Stop 09/19/16 at 10:01; Status DC Barium Sulfate (Liquid E-Z Paque) 355 ml 1X ONCE PO ; Start 09/19/16 at 10:00; Stop 09/19/16 at 10:01; Status DC Morphine Sulfate 2 mg PRN Q2HR PRN IV PAIN Last administered on 09/20/16 09:30 ; Start 09/19/16 at 10:00 Throat Lozenges (Chloraseptic) 1 spray PRN Q2HR PRN PO SORE THROAT Last administered on 09/19/16 11:01; Start 09/19/16 at 10:15 Potassium Chloride/Sodium Chloride 1,000 ml @ 100 mls/hr Q10H IV Last administered on 09/20/16 01:57; Start 09/19/16 at 12:30; Stop 09/20/16 at 08:19 ; Status DC Heparin Sodium (Porcine) (Heparin Sq) 5,000 unit Q8HRS SQ Last administered on 09/20/16 05:36; Start 09/19/16 at 14:00 Amino Acids/ Glycerin/ Electrolytes 1,000 ml @ 75 mls/hr [id number] IV Last administered on 09/20/16 08:59; Start 09/20/16 at 08:30 Active Scripts Active Senna S Tablet (Sennosides/Docusate Sodium) 1 Each Tablet 1 Each PO DAILY Reported Lexapro (Escitalopram Oxalate) 20 Mg Tablet 1 Tab PO DAILY Lisinopril-Hctz 20-12.5 Mg Tab (Lisinopril/Hydrochlorothiazide) 1 Each Tablet 1 Tab PO DAILY Lipitor (Atorvastatin Calcium) 20 Mg Tablet 20 Mg PO HS Ambien (Zolpidem Tartrate) 5 Mg Tablet 1 Tab PO QHS Lyrica (Pregabalin) 150 Mg Capsule 150 Mg PO BID 30 Days Buspirone Hcl 10 Mg Tablet 10 Mg PO BID Aspir 81 (Aspirin) 81 Mg Tablet. 1 Tab PO DAILY Vitals/I & O Vital Sign - Last 24 Hours 09/19/16 09/19/16 09/19/16 09/19/16 13:37 15:00 19:00 19:57 Temp 97.9 97.7 97.9 97.7 Pulse 74 74 74 Resp 20 18 B/P (MAP) 153/79 (103) 199/91 (127) 199/91 Pulse Ox 94 96 O2 Delivery Room Air Room Air Room Air 09/19/16 09/19/16 09/19/16 09/20/16 20:00 20:58 23:00 03:00 Temp 98.1 98.1 Pulse 92 79 71 Resp 18 20 B/P (MAP) 156/62 (93) 166/68 (100) 140/61 (87) Pulse Ox 97 94 O2 Delivery Room Air Room Air Room Air 8/01/2509/20/16 09/20/16 09/20/16 07:29 08:00 09:30 10:00 Temp 97.9 97.9 Pulse 72 Resp 20 18 18 B/P (MAP) 177/55 (95) Pulse Ox 99 99 99 O2 Delivery Room Air Room Air Room Air Room Air 09/20/16 11:00 Temp 97.5 97.5 Pulse 69 Resp 16 B/P (MAP) 166/69 (101) Pulse Ox 97 O2 Delivery Room Air Intake and Output 09/19/16 09/19/16 09/20/16 15:00 23:00 07:00 Intake Total 0 ml Output Total 200 ml Balance -200 ml SOFYA CHAPPELL III DO Sep 20, 2016 11:43
[2016-09-20] MEDS ORDERED: DEXTROSE 50% 25 GM / 50ML DISP.SYRIN. IV PRN (11:45)
--- NOTE | 2016-09-20 11:51 | PDOC ---
SURGICAL PROGRESS NOTE Subjective Pt reports feeling better today, passing flatus Vital Signs Vital Signs Date Time Temp Pulse Resp B/P (MAP) Pulse Ox O2 Delivery O2 Flow Rate FiO2 09/20/16 11:00 97.5 69 16 166/69 (101) 97 Room Air 97.5 I&O Intake and Output 09/20/16 07:00 Intake Total 0 ml Output Total 200 ml Balance -200 ml Intake Oral 0 ml Output Gastric Drainage Total 200 ml # Voids 1 General: Alert, Oriented X3, Cooperative, No acute distress Abdomen: Soft, Other (obese, distended) Labs Laboratory Tests Test 09/18/16 20:45 09/19/16 00:01 09/19/16 04:30 09/19/16 05:00 White Blood Count 9.3 x10^3/uL (4.0-11.0) 9.8 x10^3/uL (4.0-11.0) Red Blood Count 3.98 x10^6/uL (3.50-5.40) 3.96 x10^6/uL (3.50-5.40) Hemoglobin 12.8 g/dL (12.0-15.5) 12.9 g/dL (12.0-15.5) Hematocrit 37.2 % (36.0-47.0) 37.5 % (36.0-47.0) Mean Corpuscular Volume 94 fL (79-100) 95 fL (79-100) Mean Corpuscular Hemoglobin 32 pg (25-35) 33 pg (25-35) Mean Corpuscular Hemoglobin Concent 35 g/dL (31-37) 35 g/dL (31-37) Red Cell Distribution Width 13.6 % (11.5-14.5) 14.3 % (11.5-14.5) Platelet Count 285 x10^3/uL (140-400) 290 x10^3/uL (140-400) Neutrophils (%) (Auto) 73 % (31-73) 71 % (31-73) Lymphocytes (%) (Auto) 16 % (24-48) 18 % (24-48) Monocytes (%) (Auto) 9 % (0-9) 10 % (0-9) Eosinophils (%) (Auto) 1 % (0-3) 1 % (0-3) Basophils (%) (Auto) 0 % (0-3) 0 % (0-3) Neutrophils # (Auto) 6.8 x10^3uL (1.8-7.7) 6.9 x10^3uL (1.8-7.7) Lymphocytes # (Auto) 1.5 x10^3/uL (1.0-4.8) 1.8 x10^3/uL (1.0-4.8) Monocytes # (Auto) 0.8 x10^3/uL (0.0-1.1) 1.0 x10^3/uL (0.0-1.1) Eosinophils # (Auto) 0.1 x10^3/uL (0.0-0.7) 0.1 x10^3/uL (0.0-0.7) Basophils # (Auto) 0.0 x10^3/uL (0.0-0.2) 0.0 x10^3/uL (0.0-0.2) Sodium Level 143 mmol/L (136-145) 144 mmol/L (136-145) Potassium Level 3.2 mmol/L (3.5-5.1) 3.5 mmol/L (3.5-5.1) Chloride Level 103 mmol/L (98-107) 103 mmol/L (98-107) Carbon Dioxide Level 28 mmol/L (21-32) 30 mmol/L (21-32) Anion Gap 12 (6-14) 11 (6-14) Blood Urea Nitrogen 6 mg/dL (7-20) 6 mg/dL (7-20) Creatinine 0.9 mg/dL (0.6-1.0) 0.9 mg/dL (0.6-1.0) Estimated GFR (Cockcroft-Gault) 73.9 73.9 BUN/Creatinine Ratio 7 (6-20) Glucose Level 93 mg/dL (70-99) 69 mg/dL (70-99) Calcium Level 8.6 mg/dL (8.5-10.1) 8.9 mg/dL (8.5-10.1) Total Bilirubin 0.5 mg/dL (0.2-1.0) Aspartate Amino Transf (AST/SGOT) 20 U/L (15-37) Alanine Aminotransferase (ALT/SGPT) 20 U/L (14-59) Alkaline Phosphatase 76 U/L (46-116) Total Protein 7.6 g/dL (6.4-8.2) Albumin 3.2 g/dL (3.4-5.0) Albumin/Globulin Ratio 0.7 (1.0-1.7) Lactic Acid Level 1.1 mmol/L (0.4-2.0) Clostridium difficile Toxin (PCR) Negative (Negative) Test 09/20/16 04:40 09/20/16 11:22 White Blood Count 7.2 x10^3/uL (4.0-11.0) Red Blood Count 3.64 x10^6/uL (3.50-5.40) Hemoglobin 11.7 g/dL (12.0-15.5) Hematocrit 35.1 % (36.0-47.0) Mean Corpuscular Volume 96 fL (79-100) Mean Corpuscular Hemoglobin 32 pg (25-35) Mean Corpuscular Hemoglobin Concent 33 g/dL (31-37) Red Cell Distribution Width 13.9 % (11.5-14.5) Platelet Count 270 x10^3/uL (140-400) Neutrophils (%) (Auto) 68 % (31-73) Lymphocytes (%) (Auto) 22 % (24-48) Monocytes (%) (Auto) 10 % (0-9) Eosinophils (%) (Auto) 1 % (0-3) Basophils (%) (Auto) 0 % (0-3) Neutrophils # (Auto) 4.9 x10^3uL (1.8-7.7) Lymphocytes # (Auto) 1.5 x10^3/uL (1.0-4.8) Monocytes # (Auto) 0.7 x10^3/uL (0.0-1.1) Eosinophils # (Auto) 0.1 x10^3/uL (0.0-0.7) Basophils # (Auto) 0.0 x10^3/uL (0.0-0.2) Sodium Level 142 mmol/L (136-145) Potassium Level 3.7 mmol/L (3.5-5.1) Chloride Level 105 mmol/L (98-107) Carbon Dioxide Level 25 mmol/L (21-32) Anion Gap 12 (6-14) Blood Urea Nitrogen 5 mg/dL (7-20) Creatinine 0.8 mg/dL (0.6-1.0) Estimated GFR (Cockcroft-Gault) 84.6 Glucose Level 65 mg/dL (70-99) Calcium Level 8.1 mg/dL (8.5-10.1) Glucose (Fingerstick) 65 mg/dL (70-99) Laboratory Tests Test 09/20/16 04:40 09/20/16 11:22 White Blood Count 7.2 x10^3/uL (4.0-11.0) Red Blood Count 3.64 x10^6/uL (3.50-5.40) Hemoglobin 11.7 g/dL (12.0-15.5) Hematocrit 35.1 % (36.0-47.0) Mean Corpuscular Volume 96 fL (79-100) Mean Corpuscular Hemoglobin 32 pg (25-35) Mean Corpuscular Hemoglobin Concent 33 g/dL (31-37) Red Cell Distribution Width 13.9 % (11.5-14.5) Platelet Count 270 x10^3/uL (140-400) Neutrophils (%) (Auto) 68 % (31-73) Lymphocytes (%) (Auto) 22 % (24-48) Monocytes (%) (Auto) 10 % (0-9) Eosinophils (%) (Auto) 1 % (0-3) Basophils (%) (Auto) 0 % (0-3) Neutrophils # (Auto) 4.9 x10^3uL (1.8-7.7) Lymphocytes # (Auto) 1.5 x10^3/uL (1.0-4.8) Monocytes # (Auto) 0.7 x10^3/uL (0.0-1.1) Eosinophils # (Auto) 0.1 x10^3/uL (0.0-0.7) Basophils # (Auto) 0.0 x10^3/uL (0.0-0.2) Sodium Level 142 mmol/L (136-145) Potassium Level 3.7 mmol/L (3.5-5.1) Chloride Level 105 mmol/L (98-107) Carbon Dioxide Level 25 mmol/L (21-32) Anion Gap 12 (6-14) Blood Urea Nitrogen 5 mg/dL (7-20) Creatinine 0.8 mg/dL (0.6-1.0) Estimated GFR (Cockcroft-Gault) 84.6 Glucose Level 65 mg/dL (70-99) Calcium Level 8.1 mg/dL (8.5-10.1) Glucose (Fingerstick) 65 mg/dL (70-99) I have reviewed the following previous SBFT demonstrated dilated SB loops but no obstruction, current KUB demonstrates contrast in colon Problem List Problems Medical Problems: (1) Abdominal pain Status: Acute (2) Nausea and vomiting Status: Acute Assessment/Plan SBO vs ileus repeat SBFT will ask GI to comment suspect ileus as opposed to obstruction, but will consider OR if not improved Problems: MALATHI FREITAS MD Sep 20, 2016 11:51
--- NOTE | 2016-09-20 12:06 | RAD ---
Acute abdominal series to include s chest radiograph 09/20/2016 Clinical history: Small bowel obstruction. A portable AP erect digital radiograph of the chest and AP erect and supine digital portable radiographs of the abdomen/pelvis were obtained. Comparison study is dated 09/19/2016. The NG tube extends to overlie the antrum of the stomach. Residual oral contrast material is seen throughout the colon. There has been interval improvement in the air distention of small bowel loops since the previous examination. No free air is seen. Surgical changes are seen consistent with a CABG procedure. The cardiac silhouette is mildly enlarged. The thoracic aorta is mildly tortuous. No acute pulmonary infiltrate is seen. No pleural effusion or pneumothorax is noted. The osseous structures are unchanged. The left internal jugular [id number] type catheter is unchanged. Impression: Slight interval improvement in the air distention of small bowel loops.
[2016-09-20] MEDS ORDERED: IOHEXOL 350 MG/ML 100 ML VIAL. PO ONE (12:15)
--- NOTE | 2016-09-20 12:29 | PDOC2 ---
GI CONSULT Reason For Consult: Recurrent SBO HPI: HPI: 76 y/o female recently discharged on 09/16 for SBO. Seemed to improve last time, then recurrent issues with abdominal distention, N and V at home, prompting re- presentation and admission on 09/18. Has NG currently to LIS. Imaging as before with dilated small bowel and stomach on CT with decompressed distal small bowel. Has continued to pass some stool and flatus. Prior h/o similar episode when in [place] which resolved after prolonged conservative therapy. Has had prior abdominal surgery (MICHAEL?BSO). Occasional HB w/o other complicating features. No PUD, liver or pancreatic history. S/p migdalia. Former smoker. No alcohol use currently. May take ASA or an NSAID on occasion, but not regularly. Typically normal bowel function. No signs of GI bleeding. Remote EGD recalled as unremarkable. Colonoscopy w/ in last 5 years "OK". Wt/appetite OK. No GI family history. PMH: PMH: ASHD, uterine cancer, SS trait?, prior renal failure with temporary dialysis. 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 FH: Family History: Other (No GI issues) Social History: Smoke: No ALCOHOL: none Drugs: None ROS: GEN: Denies fevers, chills, sweats HEENT: Denies blurred vision, sore throat CV: Denies chest pain RESP: Denies shortness of air, cough GI: Per HPI : Denies hematuria, dysuria ENDO: Denies weight changes NEURO: Denies confusion, dizziness MSK: Denies weakness, joint pain/swelling SKIN: Denies jaundice, pruritus Vitals: Vitals: Vital Signs Date Time Temp Pulse Resp B/P (MAP) Pulse Ox O2 Delivery O2 Flow Rate FiO2 09/20/16 11:00 97.5 69 16 166/69 (101) 97 Room Air 97.5 Labs: Labs: Laboratory Tests Test 09/20/16 04:40 09/20/16 11:22 White Blood Count 7.2 x10^3/uL (4.0-11.0) Red Blood Count 3.64 x10^6/uL (3.50-5.40) Hemoglobin 11.7 g/dL (12.0-15.5) Hematocrit 35.1 % (36.0-47.0) Mean Corpuscular Volume 96 fL (79-100) Mean Corpuscular Hemoglobin 32 pg (25-35) Mean Corpuscular Hemoglobin Concent 33 g/dL (31-37) Red Cell Distribution Width 13.9 % (11.5-14.5) Platelet Count 270 x10^3/uL (140-400) Neutrophils (%) (Auto) 68 % (31-73) Lymphocytes (%) (Auto) 22 % (24-48) Monocytes (%) (Auto) 10 % (0-9) Eosinophils (%) (Auto) 1 % (0-3) Basophils (%) (Auto) 0 % (0-3) Neutrophils # (Auto) 4.9 x10^3uL (1.8-7.7) Lymphocytes # (Auto) 1.5 x10^3/uL (1.0-4.8) Monocytes # (Auto) 0.7 x10^3/uL (0.0-1.1) Eosinophils # (Auto) 0.1 x10^3/uL (0.0-0.7) Basophils # (Auto) 0.0 x10^3/uL (0.0-0.2) Sodium Level 142 mmol/L (136-145) Potassium Level 3.7 mmol/L (3.5-5.1) Chloride Level 105 mmol/L (98-107) Carbon Dioxide Level 25 mmol/L (21-32) Anion Gap 12 (6-14) Blood Urea Nitrogen 5 mg/dL (7-20) Creatinine 0.8 mg/dL (0.6-1.0) Estimated GFR (Cockcroft-Gault) 84.6 Glucose Level 65 mg/dL (70-99) Calcium Level 8.1 mg/dL (8.5-10.1) Glucose (Fingerstick) 65 mg/dL (70-99) Allergies: Coded Allergies: Iodinated Contrast- Oral and IV Dye (Verified Allergy, Intermediate, Unknown, 10/09/15) Penicillins (Verified Allergy, Intermediate, 10/09/15) Medications: Current Medications Medications (Trade) Dose Ordered Sig/Marco Route PRN Reason Start Time Stop Time Status Last Admin Dose Admin Potassium Chloride/Sodium Chloride 1,000 ml @ 100 mls/hr Q10H IV 09/19/16 12:30 09/20/16 08:19 DC 09/20/16 01:57 Heparin Sodium (Porcine) (Heparin Sq) 5,000 unit Q8HRS SQ 09/19/16 14:00 09/20/16 05:36 Amino Acids/ Glycerin/ Electrolytes 1,000 ml @ 75 mls/hr [id number] IV 09/20/16 08:30 09/20/16 08:59 Dextrose (Dextrose 50%-Water Syringe) 25 gm PRN Q15MIN PRN IV SEE COMMENTS 09/20/16 11:45 09/20/16 11:52 Imaging: Imaging: CT reviewed. PE: GEN: NAD HEENT: Atraumatic, PERRLA LUNGS: CTAB HEART: RRR with occasional extrasystole, systolic murmur at LLSB ABD: Few abnormal BS, distended and mildly tender, no masses EXTREMITY: No edema SKIN: No rashes, no jaundice NEURO/PSYCH: A & O 3, grossly intact otherwise. A/P: A/P: IMP: Recurrent/persistent SBO; gastrograffin passed last admit so maybe not total, but high-grade. Has bowel sounds so not entirely ileus, though may be a component due to marked dilation of bowel. GERD REC: Would continue NG and change to HIS. Would continue this until fully decompressed in the hope bowel motility will recover. Re-image with or w/o gastrograffin once fully decompressed. Continue iv famotidine. --might come to exploration, but hopefully not. Her track record says may take some time. Thanks. BLANCA LEYVA MD Sep 20, 2016 12:29
[2016-09-20] MEDS: hydrALAZINE 20 MG/ML VIAL. IVP PRN (14:52)
[2016-09-20 15:00] VITALS: BP 186/73
[2016-09-20 19:30] VITALS: BP 170/66
[2016-09-20 23:34] VITALS: BP 151/59
[2016-09-21 03:41] VITALS: BP 139/76
[2016-09-21] MEDS: MORPHINE SULFATE 4 MG/ML DISP.SYRIN. IV PRN ×3 (06:08→16:12)
[2016-09-21] MEDS: HEPARIN PF for SUB-Q USE 5,000 UNIT/0.5 ML VIAL. SQ SCH ×3 (06:12→22:00)
[2016-09-21 07:00] VITALS: BP 185/83
[2016-09-21] MEDS: FAMOTIDINE 20 MG/2 ML VIAL IVP SCH ×2 (08:23→22:04)
[2016-09-21] MEDS: hydrALAZINE 20 MG/ML VIAL. IVP PRN ×2 (08:50→13:22)
--- NOTE | 2016-09-21 10:21 | PDOC ---
G I PROGRESS NOTE Subjective No major change. Has had a couple stools, "mushy". Objective NG output not recorded, but she says had to empty the cannister, so abnormal. Physical Exam Lungs clear. RRR Abdomen distended. Has some more normal bowel sounds. Review of Relevant I have reviewed the following items anita (where applicable) has been applied. Labs Laboratory Tests Test 09/20/16 04:40 09/20/16 11:22 09/20/16 12:13 09/20/16 16:41 White Blood Count 7.2 x10^3/uL (4.0-11.0) Red Blood Count 3.64 x10^6/uL (3.50-5.40) Hemoglobin 11.7 g/dL (12.0-15.5) Hematocrit 35.1 % (36.0-47.0) Mean Corpuscular Volume 96 fL (79-100) Mean Corpuscular Hemoglobin 32 pg (25-35) Mean Corpuscular Hemoglobin Concent 33 g/dL (31-37) Red Cell Distribution Width 13.9 % (11.5-14.5) Platelet Count 270 x10^3/uL (140-400) Neutrophils (%) (Auto) 68 % (31-73) Lymphocytes (%) (Auto) 22 % (24-48) Monocytes (%) (Auto) 10 % (0-9) Eosinophils (%) (Auto) 1 % (0-3) Basophils (%) (Auto) 0 % (0-3) Neutrophils # (Auto) 4.9 x10^3uL (1.8-7.7) Lymphocytes # (Auto) 1.5 x10^3/uL (1.0-4.8) Monocytes # (Auto) 0.7 x10^3/uL (0.0-1.1) Eosinophils # (Auto) 0.1 x10^3/uL (0.0-0.7) Basophils # (Auto) 0.0 x10^3/uL (0.0-0.2) Sodium Level 142 mmol/L (136-145) Potassium Level 3.7 mmol/L (3.5-5.1) Chloride Level 105 mmol/L (98-107) Carbon Dioxide Level 25 mmol/L (21-32) Anion Gap 12 (6-14) Blood Urea Nitrogen 5 mg/dL (7-20) Creatinine 0.8 mg/dL (0.6-1.0) Estimated GFR (Cockcroft-Gault) 84.6 Glucose Level 65 mg/dL (70-99) Calcium Level 8.1 mg/dL (8.5-10.1) Glucose (Fingerstick) 65 mg/dL (70-99) 114 mg/dL (70-99) 76 mg/dL (70-99) Test 09/20/16 20:52 09/21/16 00:06 09/21/16 07:22 Glucose (Fingerstick) 86 mg/dL (70-99) 107 mg/dL (70-99) 115 mg/dL (70-99) Laboratory Tests Test 09/20/16 11:22 09/20/16 12:13 09/20/16 16:41 09/20/16 20:52 Glucose (Fingerstick) 65 mg/dL (70-99) 114 mg/dL (70-99) 76 mg/dL (70-99) 86 mg/dL (70-99) Test 09/21/16 00:06 09/21/16 07:22 Glucose (Fingerstick) 107 mg/dL (70-99) 115 mg/dL (70-99) Medications Current Medications Ondansetron HCl (Zofran) 4 mg PRN Q8HRS PRN IV NAUSEA/VOMITING Last administered on 09/19/16 02:59; Start 09/18/16 at 22:45; Stop 09/19/16 at 22:44 ; Status DC Fentanyl Citrate (Fentanyl 2ml Vial) 50 mcg PRN Q2HR PRN IV PAIN Last administered on 09/19/16 08:14; Start 09/18/16 at 22:45; Stop 09/19/16 at 22:44 ; Status DC Sodium Chloride 1,000 ml @ 125 mls/hr Q8H IV Last administered on 09/19/16 11 :01; Start 09/18/16 at 22:45; Stop 09/19/16 at 22:44; Status DC Hydralazine HCl (Apresoline) 10 mg PRN Q4HRS PRN IVP ELEVATED BP, SEE COMMENTS Last administered on 09/19/16 01:55; Start 09/19/16 at 01:45; Stop 09/19/16 at 12:24; Status DC Potassium Chloride 30 meq/ Sodium Chloride 1,015 ml @ 125 mls/hr 1X ONCE IV Last administered on 09/19/16 03:07; Start 09/19/16 at 01:45; Stop 09/19/16 at 09:52; Status DC Al Hydroxide/Mg Hydroxide (Mylanta Plus Xs) 15 ml 1X ONCE PO Last administered on 09/19/16 05:50; Start 09/19/16 at 06:00; Stop 09/19/16 at 06:01 ; Status DC Famotidine (Pepcid) 20 mg BID IVP Last administered on 09/21/16 08:23; Start 09/19/16 at 09:00 Acetaminophen (Tylenol) 650 mg PRN Q6HRS PRN PO FEVER; Start 09/19/16 at 09:30 Ondansetron HCl (Zofran) 4 mg PRN Q6HRS PRN IV NAUSEA/VOMITING; Start 09/19/16 at 09:30 Morphine Sulfate 2 mg PRN Q2HR PRN IV PAIN; Start 09/19/16 at 09:30; Stop 09/19 at 09:56; Status DC Tramadol HCl (Ultram) 50 mg PRN Q6HRS PRN PO PAIN; Start 09/19/16 at 09:30 Hydralazine HCl (Apresoline) 10 mg PRN Q4HRS PRN IVP ELEVATED BP, SEE COMMENTS Last administered on 09/21/16 08:50; Start 09/19/16 at 09:30 Docusate Sodium (Colace) 100 mg PRN DAILY PRN PO CONSTIPATION; Start 09/19/16 at 09:30 Barium Sulfate (Liquid E-Z Paque) 355 ml 1X ONCE PO ; Start 09/19/16 at 10:00; Stop 09/19/16 at 10:01; Status DC Barium Sulfate (Liquid E-Z Paque) 355 ml 1X ONCE PO ; Start 09/19/16 at 10:00; Stop 09/19/16 at 10:01; Status DC Morphine Sulfate 2 mg PRN Q2HR PRN IV PAIN Last administered on 09/21/16 06:08 ; Start 09/19/16 at 10:00 Throat Lozenges (Chloraseptic) 1 spray PRN Q2HR PRN PO SORE THROAT Last administered on 09/19/16 11:01; Start 09/19/16 at 10:15 Potassium Chloride/Sodium Chloride 1,000 ml @ 100 mls/hr Q10H IV Last administered on 09/20/16 01:57; Start 09/19/16 at 12:30; Stop 09/20/16 at 08:19 ; Status DC Heparin Sodium (Porcine) (Heparin Sq) 5,000 unit Q8HRS SQ Last administered on 09/21/16 06:12; Start 09/19/16 at 14:00 Amino Acids/ Glycerin/ Electrolytes 1,000 ml @ 75 mls/hr [id number] IV Last administered on 09/20/16 22:32; Start 09/20/16 at 08:30 Dextrose (Dextrose 50%-Water Syringe) 25 gm PRN Q15MIN PRN IV SEE COMMENTS Last administered on 09/20/16 11:52; Start 09/20/16 at 11:45 Iohexol (Omnipaque 350 Mg/ml) 400 ml 1X ONCE PO Last administered on 12:37; Start 09/20/16 at 12:15; Stop 09/20/16 at 12:16; Status DC Active Scripts Active Senna S Tablet (Sennosides/Docusate Sodium) 1 Each Tablet 1 Each PO DAILY Reported Lexapro (Escitalopram Oxalate) 20 Mg Tablet 1 Tab PO DAILY Lisinopril-Hctz 20-12.5 Mg Tab (Lisinopril/Hydrochlorothiazide) 1 Each Tablet 1 Tab PO DAILY Lipitor (Atorvastatin Calcium) 20 Mg Tablet 20 Mg PO HS Ambien (Zolpidem Tartrate) 5 Mg Tablet 1 Tab PO QHS Lyrica (Pregabalin) 150 Mg Capsule 150 Mg PO BID 30 Days Buspirone Hcl 10 Mg Tablet 10 Mg PO BID Aspir 81 (Aspirin) 81 Mg Tablet. 1 Tab PO DAILY Vitals/I & O Vital Sign - Last 24 Hours 09/20/16 09/20/16 09/20/16 09/20/16 11:00 12:17 14:52 15:00 Temp 97.5 98.2 97.5 98.2 Pulse 69 80 76 Resp 16 18 20 B/P (MAP) 166/69 (101) 186/73 186/73 (110) Pulse Ox 97 97 97 O2 Delivery Room Air Room Air Room Air 09/20/16 09/20/16 09/20/16 09/20/16 15:27 15:57 19:30 20:00 Temp 98.1 98.1 Pulse 71 Resp 18 18 B/P (MAP) 170/66 (100) Pulse Ox 97 97 97 O2 Delivery Room Air Room Air Room Air 09/20/16 09/20/16 09/21/16 09/21/16 20:14 23:34 03:41 06:08 Temp 98.1 98.1 98.1 98.1 Pulse 75 79 Resp 16 18 18 16 B/P (MAP) 151/59 (89) 139/76 (97) Pulse Ox 97 94 97 O2 Delivery Room Air Room Air Room Air Room Air 09/21/16 09/21/16 09/21/16 06:40 07:00 08:50 Temp 97.9 97.9 Pulse 72 72 Resp 16 18 B/P (MAP) 185/83 (117) 185/83 Pulse Ox 97 O2 Delivery Room Air Room Air Intake and Output 09/20/16 09/20/16 09/21/16 15:00 23:00 07:00 Output Total 650 ml Balance -650 ml Images Gastrograffin study not read, but as I look at it, dilated small bowel. Think colon contrast from last time. Problem List Problems Medical Problems: (1) Abdominal pain Status: Acute (2) Nausea and vomiting Status: Acute Assessment SBO, maybe component of ileus as well. Clinically not resolved. Plan of Care Note Would continue NG suction until normal output before any thoughts of feeding or removing tube. BLANCA LEYVA MD Sep 21, 2016 10:21
[2016-09-21 11:05] VITALS: BP 181/80
[2016-09-21] MEDS: AMINO AC 3%/ELECTROLYTE/GLYCER 1,000 ML IV SCH (11:39)
--- NOTE | 2016-09-21 13:27 | PDOC ---
SURGICAL PROGRESS NOTE Subjective Pt reports feeling much better, passing large amount of stool and flatus Vital Signs Vital Signs Date Time Temp Pulse Resp B/P (MAP) Pulse Ox O2 Delivery O2 Flow Rate FiO2 09/21/16 13:22 85 181/80 09/21/16 11:48 18 98 Room Air 09/21/16 11:05 97.8 97.8 I&O Intake and Output 09/21/16 07:00 Output Total 650 ml Balance -650 ml Output Urine Total 650 ml # Voids 3 # Bowel Movements 1 General: Alert, Oriented X3, Cooperative, No acute distress Abdomen: Soft, No tenderness, Other (obese) Labs Laboratory Tests Test 09/20/16 04:40 09/20/16 11:22 09/20/16 12:13 09/20/16 16:41 White Blood Count 7.2 x10^3/uL (4.0-11.0) Red Blood Count 3.64 x10^6/uL (3.50-5.40) Hemoglobin 11.7 g/dL (12.0-15.5) Hematocrit 35.1 % (36.0-47.0) Mean Corpuscular Volume 96 fL (79-100) Mean Corpuscular Hemoglobin 32 pg (25-35) Mean Corpuscular Hemoglobin Concent 33 g/dL (31-37) Red Cell Distribution Width 13.9 % (11.5-14.5) Platelet Count 270 x10^3/uL (140-400) Neutrophils (%) (Auto) 68 % (31-73) Lymphocytes (%) (Auto) 22 % (24-48) Monocytes (%) (Auto) 10 % (0-9) Eosinophils (%) (Auto) 1 % (0-3) Basophils (%) (Auto) 0 % (0-3) Neutrophils # (Auto) 4.9 x10^3uL (1.8-7.7) Lymphocytes # (Auto) 1.5 x10^3/uL (1.0-4.8) Monocytes # (Auto) 0.7 x10^3/uL (0.0-1.1) Eosinophils # (Auto) 0.1 x10^3/uL (0.0-0.7) Basophils # (Auto) 0.0 x10^3/uL (0.0-0.2) Sodium Level 142 mmol/L (136-145) Potassium Level 3.7 mmol/L (3.5-5.1) Chloride Level 105 mmol/L (98-107) Carbon Dioxide Level 25 mmol/L (21-32) Anion Gap 12 (6-14) Blood Urea Nitrogen 5 mg/dL (7-20) Creatinine 0.8 mg/dL (0.6-1.0) Estimated GFR (Cockcroft-Gault) 84.6 Glucose Level 65 mg/dL (70-99) Calcium Level 8.1 mg/dL (8.5-10.1) Glucose (Fingerstick) 65 mg/dL (70-99) 114 mg/dL (70-99) 76 mg/dL (70-99) Test 09/20/16 20:52 09/21/16 00:06 09/21/16 07:22 09/21/16 10:14 Glucose (Fingerstick) 86 mg/dL (70-99) 107 mg/dL (70-99) 115 mg/dL (70-99) 115 mg/dL (70-99) Laboratory Tests Test 09/20/16 16:41 09/20/16 20:52 09/21/16 00:06 09/21/16 07:22 Glucose (Fingerstick) 76 mg/dL (70-99) 86 mg/dL (70-99) 107 mg/dL (70-99) 115 mg/dL (70-99) Test 09/21/16 10:14 Glucose (Fingerstick) 115 mg/dL (70-99) I have reviewed the following SBFT report pending Problem List Problems Medical Problems: (1) Abdominal pain Status: Acute (2) Nausea and vomiting Status: Acute Assessment/Plan SBo vs ileus d/w GI cont NGT and bowel rest await SBFT results Problems: MALATHI FREITAS MD Sep 21, 2016 13:27
--- NOTE | 2016-09-21 13:31 | PDOC ---
PROGRESS NOTES Chief Complaint Chief Complaint CC abdominal pain (SBO) Uterine CA Hypercholesterolemia HTN SBO History of Present Illness History of Present Illness Patient was seen lying down in the bed. On active NG suction. Patient is AOx3, but appears weak. Patient is on PPN. Discussed case with loved one, who was adamant about transferring patient to . Went over labs and imaging. Acute abdomen series shows slight incremental improvement in air distension of small bowel loops. Vitals Vitals Vital Signs Date Time Temp Pulse Resp B/P (MAP) Pulse Ox O2 Delivery O2 Flow Rate FiO2 09/21/16 11:48 18 98 Room Air 09/21/16 11:05 97.8 85 181/80 (113) 97.8 Physical Exam General: Alert, Oriented X3, Cooperative, No acute distress Heart: Regular rate, Normal S1, Normal S2, No murmurs Lungs: Clear, Other (no r/r/w) Abdomen: Normal bowel sounds, Soft, Other (obese, distended) Extremities: No clubbing, No cyanosis Skin: No rashes, No breakdown Labs LABS Laboratory Tests Test 09/20/16 16:41 09/20/16 20:52 09/21/16 00:06 09/21/16 07:22 Glucose (Fingerstick) 76 mg/dL (70-99) 86 mg/dL (70-99) 107 mg/dL (70-99) 115 mg/dL (70-99) Test 09/21/16 10:14 Glucose (Fingerstick) 115 mg/dL (70-99) Review of Systems Review of Systems Patient complains of mild SOB. Patient complains of abdominal pain. Assessment and Plan Assessmemt and Plan Problems Medical Problems: (1) Abdominal pain Status: Acute (2) Nausea and vomiting Status: Acute Assessment: CC abdominal pain (SBO) Uterine CA Hypercholesterolemia HTN SBO Plan: 1. Continue PPN 2. Continue NG suction 3. Recheck labs 4. Home medications 5. Appreciate GI and surgery input 6. Continue morphine for pain Problems: Comment Review of Relevant I have reviewed the following items anita (where applicable) has been applied. Labs Laboratory Tests Test 09/20/16 04:40 09/20/16 11:22 09/20/16 12:13 09/20/16 16:41 White Blood Count 7.2 x10^3/uL (4.0-11.0) Red Blood Count 3.64 x10^6/uL (3.50-5.40) Hemoglobin 11.7 g/dL (12.0-15.5) Hematocrit 35.1 % (36.0-47.0) Mean Corpuscular Volume 96 fL (79-100) Mean Corpuscular Hemoglobin 32 pg (25-35) Mean Corpuscular Hemoglobin Concent 33 g/dL (31-37) Red Cell Distribution Width 13.9 % (11.5-14.5) Platelet Count 270 x10^3/uL (140-400) Neutrophils (%) (Auto) 68 % (31-73) Lymphocytes (%) (Auto) 22 % (24-48) Monocytes (%) (Auto) 10 % (0-9) Eosinophils (%) (Auto) 1 % (0-3) Basophils (%) (Auto) 0 % (0-3) Neutrophils # (Auto) 4.9 x10^3uL (1.8-7.7) Lymphocytes # (Auto) 1.5 x10^3/uL (1.0-4.8) Monocytes # (Auto) 0.7 x10^3/uL (0.0-1.1) Eosinophils # (Auto) 0.1 x10^3/uL (0.0-0.7) Basophils # (Auto) 0.0 x10^3/uL (0.0-0.2) Sodium Level 142 mmol/L (136-145) Potassium Level 3.7 mmol/L (3.5-5.1) Chloride Level 105 mmol/L (98-107) Carbon Dioxide Level 25 mmol/L (21-32) Anion Gap 12 (6-14) Blood Urea Nitrogen 5 mg/dL (7-20) Creatinine 0.8 mg/dL (0.6-1.0) Estimated GFR (Cockcroft-Gault) 84.6 Glucose Level 65 mg/dL (70-99) Calcium Level 8.1 mg/dL (8.5-10.1) Glucose (Fingerstick) 65 mg/dL (70-99) 114 mg/dL (70-99) 76 mg/dL (70-99) Test 09/20/16 20:52 09/21/16 00:06 09/21/16 07:22 09/21/16 10:14 Glucose (Fingerstick) 86 mg/dL (70-99) 107 mg/dL (70-99) 115 mg/dL (70-99) 115 mg/dL (70-99) Laboratory Tests Test 09/20/16 16:41 09/20/16 20:52 09/21/16 00:06 09/21/16 07:22 Glucose (Fingerstick) 76 mg/dL (70-99) 86 mg/dL (70-99) 107 mg/dL (70-99) 115 mg/dL (70-99) Test 09/21/16 10:14 Glucose (Fingerstick) 115 mg/dL (70-99) Medications Current Medications Ondansetron HCl (Zofran) 4 mg PRN Q8HRS PRN IV NAUSEA/VOMITING Last administered on 09/19/16 02:59; Start 09/18/16 at 22:45; Stop 09/19/16 at 22:44 ; Status DC Fentanyl Citrate (Fentanyl 2ml Vial) 50 mcg PRN Q2HR PRN IV PAIN Last administered on 09/19/16 08:14; Start 09/18/16 at 22:45; Stop 09/19/16 at 22:44 ; Status DC Sodium Chloride 1,000 ml @ 125 mls/hr Q8H IV Last administered on 09/19/16 11 :01; Start 09/18/16 at 22:45; Stop 09/19/16 at 22:44; Status DC Hydralazine HCl (Apresoline) 10 mg PRN Q4HRS PRN IVP ELEVATED BP, SEE COMMENTS Last administered on 09/19/16 01:55; Start 09/19/16 at 01:45; Stop 09/19/16 at 12:24; Status DC Potassium Chloride 30 meq/ Sodium Chloride 1,015 ml @ 125 mls/hr 1X ONCE IV Last administered on 09/19/16 03:07; Start 09/19/16 at 01:45; Stop 09/19/16 at 09:52; Status DC Al Hydroxide/Mg Hydroxide (Mylanta Plus Xs) 15 ml 1X ONCE PO Last administered on 09/19/16 05:50; Start 09/19/16 at 06:00; Stop 09/19/16 at 06:01 ; Status DC Famotidine (Pepcid) 20 mg BID IVP Last administered on 09/21/16 08:23; Start 09/19/16 at 09:00 Acetaminophen (Tylenol) 650 mg PRN Q6HRS PRN PO FEVER; Start 09/19/16 at 09:30 Ondansetron HCl (Zofran) 4 mg PRN Q6HRS PRN IV NAUSEA/VOMITING; Start 09/19/16 at 09:30 Morphine Sulfate 2 mg PRN Q2HR PRN IV PAIN; Start 09/19/16 at 09:30; Stop 09/19 at 09:56; Status DC Tramadol HCl (Ultram) 50 mg PRN Q6HRS PRN PO PAIN; Start 09/19/16 at 09:30 Hydralazine HCl (Apresoline) 10 mg PRN Q4HRS PRN IVP ELEVATED BP, SEE COMMENTS Last administered on 09/21/16 08:50; Start 09/19/16 at 09:30 Docusate Sodium (Colace) 100 mg PRN DAILY PRN PO CONSTIPATION; Start 09/19/16 at 09:30 Barium Sulfate (Liquid E-Z Paque) 355 ml 1X ONCE PO ; Start 09/19/16 at 10:00; Stop 09/19/16 at 10:01; Status DC Barium Sulfate (Liquid E-Z Paque) 355 ml 1X ONCE PO ; Start 09/19/16 at 10:00; Stop 09/19/16 at 10:01; Status DC Morphine Sulfate 2 mg PRN Q2HR PRN IV PAIN Last administered on 09/21/16 11:48 ; Start 09/19/16 at 10:00 Throat Lozenges (Chloraseptic) 1 spray PRN Q2HR PRN PO SORE THROAT Last administered on 09/19/16 11:01; Start 09/19/16 at 10:15 Potassium Chloride/Sodium Chloride 1,000 ml @ 100 mls/hr Q10H IV Last administered on 09/20/16 01:57; Start 09/19/16 at 12:30; Stop 09/20/16 at 08:19 ; Status DC Heparin Sodium (Porcine) (Heparin Sq) 5,000 unit Q8HRS SQ Last administered on 09/21/16 06:12; Start 09/19/16 at 14:00 Amino Acids/ Glycerin/ Electrolytes 1,000 ml @ 75 mls/hr [id number] IV Last administered on 09/21/16 11:39; Start 09/20/16 at 08:30 Dextrose (Dextrose 50%-Water Syringe) 25 gm PRN Q15MIN PRN IV SEE COMMENTS Last administered on 09/20/16 11:52; Start 09/20/16 at 11:45 Iohexol (Omnipaque 350 Mg/ml) 400 ml 1X ONCE PO Last administered on 12:37; Start 09/20/16 at 12:15; Stop 09/20/16 at 12:16; Status DC Active Scripts Active Senna S Tablet (Sennosides/Docusate Sodium) 1 Each Tablet 1 Each PO DAILY Reported Lexapro (Escitalopram Oxalate) 20 Mg Tablet 1 Tab PO DAILY Lisinopril-Hctz 20-12.5 Mg Tab (Lisinopril/Hydrochlorothiazide) 1 Each Tablet 1 Tab PO DAILY Lipitor (Atorvastatin Calcium) 20 Mg Tablet 20 Mg PO HS Ambien (Zolpidem Tartrate) 5 Mg Tablet 1 Tab PO QHS Lyrica (Pregabalin) 150 Mg Capsule 150 Mg PO BID 30 Days Buspirone Hcl 10 Mg Tablet 10 Mg PO BID Aspir 81 (Aspirin) 81 Mg Tablet. 1 Tab PO DAILY Vitals/I & O Vital Sign - Last 24 Hours 09/20/16 09/20/16 09/20/16 09/20/16 14:52 15:00 15:27 15:57 Temp 98.2 98.2 Pulse 80 76 Resp 20 18 B/P (MAP) 186/73 186/73 (110) Pulse Ox 97 97 97 O2 Delivery Room Air Room Air 09/20/16 09/20/16 09/20/16 09/20/16 19:30 20:00 20:14 23:34 Temp 98.1 98.1 98.1 98.1 Pulse 71 75 Resp 18 16 18 B/P (MAP) 170/66 (100) 151/59 (89) Pulse Ox 97 97 94 O2 Delivery Room Air Room Air Room Air Room Air 09/21/16 09/21/16 09/21/16 09/21/16 03:41 06:08 06:40 07:00 Temp 98.1 97.9 98.1 97.9 Pulse 79 72 Resp 18 16 16 18 B/P (MAP) 139/76 (97) 185/83 (117) Pulse Ox 97 97 O2 Delivery Room Air Room Air Room Air Room Air 09/21/16 09/21/16 09/21/16 09/21/16 07:50 08:50 11:05 11:48 Temp 97.8 97.8 Pulse 72 85 Resp 18 18 B/P (MAP) 185/83 181/80 (113) Pulse Ox 98 98 O2 Delivery Room Air Room Air Room Air Intake and Output 09/20/16 09/20/16 09/21/16 15:00 23:00 07:00 Output Total 650 ml Balance -650 ml SOFYA CHAPPELL III DO Sep 21, 2016 13:31
--- NOTE | 2016-09-21 13:56 | RAD ---
Small bowel follow-through study 09/20/2016 Clinical history: Small bowel obstruction. Technique: A small bowel follow-through study was performed by injecting dilute Omnipaque 350 through the patient's NG tube under radiographic control. The total fluoroscopic time is 0 minutes. Eight radiographs were obtained of the abdomen. Findings: Comparison is made to patient's CT scan of the abdomen and pelvis dated 09/19/2016. Additional comparison is made to the patient's acute abdominal series performed earlier the same day. The mucosal pattern of the duodenum and proximal jejunum is within normal limits. Progressive distention of mid/distal jejunal and ileal loops is seen during this examination consistent with the patient's history of a small bowel obstruction. The transition point appears to be in the region of the distal ileum. A portable AP digital radiograph of the abdomen was obtained at 0718 hours on 09/21/2016 which demonstrates contrast opacifying the cecum and ascending colon with persistent contrast within dilated small bowel loops. Impression: Findings are seen consistent with small bowel obstruction. The transition point appears to be in the region of the distal ileum. Some contrast is seen extending beyond the obstruction into the colon on the delayed radiographs.
[2016-09-21 14:51] VITALS: BP 139/56
[2016-09-21 19:15] VITALS: BP 166/69
[2016-09-21 23:18] VITALS: BP 176/82
[2016-09-22] MEDS: AMINO AC 3%/ELECTROLYTE/GLYCER 1,000 ML IV SCH ×2 (01:03→14:05)
[2016-09-22] MEDS: MORPHINE SULFATE 4 MG/ML DISP.SYRIN. IV PRN ×4 (01:03→20:52)
[2016-09-22 03:07] VITALS: BP 160/70
[2016-09-22] MEDS: HEPARIN PF for SUB-Q USE 5,000 UNIT/0.5 ML VIAL. SQ SCH ×3 (05:20→20:59)
[2016-09-22 07:00] VITALS: BP 184/78
[2016-09-22] MEDS ORDERED: LIDOCAINE 1% 1 ML SYRINGE. ID PRN (07:45)
[2016-09-22] MEDS ORDERED: MORPHINE SULFATE 2 MG/ML DISP.SYRIN. IV PRN (07:45)
[2016-09-22] MEDS ORDERED: IV RINGERS,LACTATED 1000ML 1,000 ML IV SCH (07:45)
[2016-09-22] MEDS ORDERED: PROCHLORPERAZINE 10 MG/2 ML VIAL. IV PRN (07:45)
[2016-09-22] MEDS ORDERED: fentaNYL PF VIAL 100 MCG/2 ML VIAL IV PRN ×2 (07:45)
[2016-09-22] MEDS ORDERED: HYDROmorphone 2 MG/ML VIAL IV PRN (07:45)
[2016-09-22] MEDS ORDERED: ONDANSETRON PF 4 MG/2 ML VIAL. IV PRN (07:45)
--- NOTE | 2016-09-22 08:21 | PDOC ---
SURGICAL PROGRESS NOTE Subjective Pt reports feeling well this AM, passing flatus and stool, min epigastric pain, no N/V Vital Signs Vital Signs Date Time Temp Pulse Resp B/P (MAP) Pulse Ox O2 Delivery O2 Flow Rate FiO2 09/22/16 07:25 Room Air 09/22/16 03:07 97.5 61 18 160/70 (100) 97 97.5 I&O Intake and Output 09/22/16 07:00 Intake Total 0 ml Output Total 2600 ml Balance -2600 ml Intake Oral 0 ml Output Urine Total 100 ml Gastric Drainage Total 2500 ml # Bowel Movements 3 General: Alert, Oriented X3, Cooperative, No acute distress Abdomen: Soft, No tenderness Labs Laboratory Tests Test 09/20/16 11:22 09/20/16 12:13 09/20/16 16:41 09/20/16 20:52 Glucose (Fingerstick) 65 mg/dL (70-99) 114 mg/dL (70-99) 76 mg/dL (70-99) 86 mg/dL (70-99) Test 09/21/16 00:06 09/21/16 07:22 09/21/16 10:14 09/21/16 16:30 Glucose (Fingerstick) 107 mg/dL (70-99) 115 mg/dL (70-99) 115 mg/dL (70-99) 106 mg/dL (70-99) Test 09/21/16 20:42 09/22/16 08:01 Glucose (Fingerstick) 111 mg/dL (70-99) 111 mg/dL (70-99) Laboratory Tests Test 09/21/16 10:14 09/21/16 16:30 09/21/16 20:42 09/22/16 08:01 Glucose (Fingerstick) 115 mg/dL (70-99) 106 mg/dL (70-99) 111 mg/dL (70-99) 111 mg/dL (70-99) I have reviewed the following SBFT concerning for SBO, but contrast moves through Problem List Problems Medical Problems: (1) Abdominal pain Status: Acute (2) Nausea and vomiting Status: Acute Assessment/Plan SBO OR was made ready today, and OR offered to pt d/w pt R/B/A of conservative measures and OR extensively d/w GI yesterday and d/w them the previous prolonged hospitalization in [place] at this time, pt elects not to proceed with surgery, which is reasonable noted hospitalists notes to consider tx to [facility], which is not unreasonable will clamp NGT and work towards removal Problems: MALATHI FREITAS MD Sep 22, 2016 08:21
[2016-09-22] MEDS: FAMOTIDINE 20 MG/2 ML VIAL IVP SCH ×2 (09:26→20:51)
[2016-09-22] MEDS: hydrALAZINE 20 MG/ML VIAL. IVP PRN (10:39)
--- NOTE | 2016-09-22 10:46 | PDOC ---
Subjective: Subjective: Denies pain, says stooling and passing gas. Objective: Objective: Reviewed other notes - pt decided against OR today, NG clamped. Vital Signs: Vital Signs Date Time Temp Pulse Resp B/P (MAP) Pulse Ox O2 Delivery O2 Flow Rate FiO2 09/22/16 10:39 201/86 09/22/16 10:15 Room Air 09/22/16 07:00 97.9 75 18 97 97.9 Labs: Laboratory Tests Test 09/21/16 16:30 09/21/16 20:42 09/22/16 08:01 Glucose (Fingerstick) 106 mg/dL 111 mg/dL 111 mg/dL PE: GEN: NAD LUNGS: clear HEART: RRR ABD: BS+, non-tender NEURO/PSYCH: A & O 3 A/P: Recurrent SBO -- Surgery offered/declined by pt, NG clamped. Will follow. EDMOND BAIRD Sep 22, 2016 10:46
[2016-09-22 10:59] VITALS: BP 201/86
[2016-09-22 15:00] VITALS: BP 160/62
--- NOTE | 2016-09-22 16:28 | PDOC ---
PROGRESS NOTES Chief Complaint Chief Complaint Abdominal pain ( recurrent SBO) ASSESSMENT AND PLAN: 1. SBO: recurrent, had been discharged for same just 2 day prior to current admit. 2/2 adhesion likely. clin improving. surgery on hold for now. 2. HTN/HLD: well controlled; cont as danyell 3. CAD: hx CABG. no acute issues 4. DM2: well controlled. ISS 5. Hypokalemia: resolved 6. Prophylaxis: heparin SQ 7. Anxiety/stress: relates that her boyfriend has been pressuring her to agree to transfer to as he has heard from other people [facility] was unsafe. She does not want him back in the room unless he can support her choices, incl staying here History of Present Illness History of Present Illness very upset about her boyfriend's attitude. eleazar feels better Vitals Vitals Vital Signs Date Time Temp Pulse Resp B/P (MAP) Pulse Ox O2 Delivery O2 Flow Rate FiO2 09/22/16 15:00 98.1 76 20 160/62 (94) 98 Room Air 98.1 Physical Exam General: Alert, Oriented X3, Cooperative, No acute distress Heart: Regular rate, No murmurs Lungs: Clear, Other (no r/r/w) Abdomen: Soft, No tenderness, Other (tinkling BS) Extremities: No clubbing, No cyanosis Skin: No rashes, No breakdown Labs LABS Laboratory Tests Test 09/21/16 16:30 09/21/16 20:42 09/22/16 08:01 09/22/16 11:25 Glucose (Fingerstick) 106 mg/dL (70-99) 111 mg/dL (70-99) 111 mg/dL (70-99) 106 mg/dL (70-99) LEMUEL RIVERA MD Sep 22, 2016 16:28
[2016-09-22 19:00] VITALS: BP 167/82
[2016-09-22 23:00] VITALS: BP 127/46
[2016-09-23] MEDS: AMINO AC 3%/ELECTROLYTE/GLYCER 1,000 ML IV SCH ×2 (02:13→14:02)
[2016-09-23 03:00] VITALS: BP 149/71
[2016-09-23] MEDS: HEPARIN PF for SUB-Q USE 5,000 UNIT/0.5 ML VIAL. SQ SCH ×3 (06:26→22:36)
[2016-09-23 07:00] VITALS: BP 119/71
[2016-09-23] MEDS: FAMOTIDINE 20 MG/2 ML VIAL IVP SCH ×2 (09:19→20:18)
--- NOTE | 2016-09-23 10:19 | PDOC ---
XAVIER POLK Ana COPY READER 09/23/16 1019: SURGICAL PROGRESS NOTE Subjective reports on bedpan having stool now no n/v no distention Vital Signs Vital Signs Date Time Temp Pulse Resp B/P (MAP) Pulse Ox O2 Delivery O2 Flow Rate FiO2 09/23/16 08:00 Room Air 09/23/16 07:00 97.5 72 18 119/71 (87) 98 97.5 I&O Intake and Output 09/23/16 07:00 Intake Total 671 ml Output Total 1900 ml Balance -1229 ml Intake Oral 0 ml IV Total 671 ml Output Urine Total 1850 ml Gastric Drainage Total 50 ml General: Alert, Oriented X3, Cooperative, No acute distress Abdomen: Soft, No tenderness Labs Laboratory Tests Test 09/21/16 16:30 09/21/16 20:42 09/22/16 08:01 09/22/16 11:25 Glucose (Fingerstick) 106 mg/dL (70-99) 111 mg/dL (70-99) 111 mg/dL (70-99) 106 mg/dL (70-99) Test 09/22/16 16:36 09/22/16 20:42 09/23/16 07:20 Glucose (Fingerstick) 100 mg/dL (70-99) 123 mg/dL (70-99) 112 mg/dL (70-99) Laboratory Tests Test 09/22/16 11:25 09/22/16 16:36 09/22/16 20:42 09/23/16 07:20 Glucose (Fingerstick) 106 mg/dL (70-99) 100 mg/dL (70-99) 123 mg/dL (70-99) 112 mg/dL (70-99) Problem List Problems Medical Problems: (1) Abdominal pain Status: Acute (2) Nausea and vomiting Status: Acute Assessment/Plan NG residual <50cc DC NG, start clears Problems: MALATHI FREITAS MD 09/23/16 1418: SURGICAL PROGRESS NOTE Assessment/Plan Pt seen and examined. Agree with Ms. Polk's note Pt feels well with NGT out abd soft, ND, NTTP try clears and add sesame seed oil consider Xlap if recurrent symptoms Problems: XAVIER POLK APRN Sep 23, 2016 10:19 MALATHI FREITAS MD Sep 23, 2016 14:18
--- NOTE | 2016-09-23 10:19 | PDOC ---
G I PROGRESS NOTE Subjective Feels no different. Is stooling. NG still clamped and has not vomited. Physical Exam Lungs clear. RRR Abdomen still distended. Not particularly tender. Abnormal bowel sounds with "rushes". Review of Relevant I have reviewed the following items anita (where applicable) has been applied. Labs Laboratory Tests Test 09/21/16 16:30 09/21/16 20:42 09/22/16 08:01 09/22/16 11:25 Glucose (Fingerstick) 106 mg/dL (70-99) 111 mg/dL (70-99) 111 mg/dL (70-99) 106 mg/dL (70-99) Test 09/22/16 16:36 09/22/16 20:42 09/23/16 07:20 Glucose (Fingerstick) 100 mg/dL (70-99) 123 mg/dL (70-99) 112 mg/dL (70-99) Laboratory Tests Test 09/22/16 11:25 09/22/16 16:36 09/22/16 20:42 09/23/16 07:20 Glucose (Fingerstick) 106 mg/dL (70-99) 100 mg/dL (70-99) 123 mg/dL (70-99) 112 mg/dL (70-99) Medications Current Medications Ondansetron HCl (Zofran) 4 mg PRN Q8HRS PRN IV NAUSEA/VOMITING Last administered on 09/19/16 02:59; Start 09/18/16 at 22:45; Stop 09/19/16 at 22:44 ; Status DC Fentanyl Citrate (Fentanyl 2ml Vial) 50 mcg PRN Q2HR PRN IV PAIN Last administered on 09/19/16 08:14; Start 09/18/16 at 22:45; Stop 09/19/16 at 22:44 ; Status DC Sodium Chloride 1,000 ml @ 125 mls/hr Q8H IV Last administered on 09/19/16 11 :01; Start 09/18/16 at 22:45; Stop 09/19/16 at 22:44; Status DC Hydralazine HCl (Apresoline) 10 mg PRN Q4HRS PRN IVP ELEVATED BP, SEE COMMENTS Last administered on 09/19/16 01:55; Start 09/19/16 at 01:45; Stop 09/19/16 at 12:24; Status DC Potassium Chloride 30 meq/ Sodium Chloride 1,015 ml @ 125 mls/hr 1X ONCE IV Last administered on 09/19/16 03:07; Start 09/19/16 at 01:45; Stop 09/19/16 at 09:52; Status DC Al Hydroxide/Mg Hydroxide (Mylanta Plus Xs) 15 ml 1X ONCE PO Last administered on 09/19/16 05:50; Start 09/19/16 at 06:00; Stop 09/19/16 at 06:01 ; Status DC Famotidine (Pepcid) 20 mg BID IVP Last administered on 09/23/16 09:19; Start 09/19/16 at 09:00 Acetaminophen (Tylenol) 650 mg PRN Q6HRS PRN PO FEVER; Start 09/19/16 at 09:30 Ondansetron HCl (Zofran) 4 mg PRN Q6HRS PRN IV NAUSEA/VOMITING; Start 09/19/16 at 09:30 Morphine Sulfate 2 mg PRN Q2HR PRN IV PAIN; Start 09/19/16 at 09:30; Stop 09/19 at 09:56; Status DC Tramadol HCl (Ultram) 50 mg PRN Q6HRS PRN PO PAIN; Start 09/19/16 at 09:30 Hydralazine HCl (Apresoline) 10 mg PRN Q4HRS PRN IVP ELEVATED BP, SEE COMMENTS Last administered on 09/22/16 10:39; Start 09/19/16 at 09:30 Docusate Sodium (Colace) 100 mg PRN DAILY PRN PO CONSTIPATION; Start 09/19/16 at 09:30 Barium Sulfate (Liquid E-Z Paque) 355 ml 1X ONCE PO ; Start 09/19/16 at 10:00; Stop 09/19/16 at 10:01; Status DC Barium Sulfate (Liquid E-Z Paque) 355 ml 1X ONCE PO ; Start 09/19/16 at 10:00; Stop 09/19/16 at 10:01; Status DC Morphine Sulfate 2 mg PRN Q2HR PRN IV PAIN Last administered on 09/22/16 20:52 ; Start 09/19/16 at 10:00 Throat Lozenges (Chloraseptic) 1 spray PRN Q2HR PRN PO SORE THROAT Last administered on 09/19/16 11:01; Start 09/19/16 at 10:15 Potassium Chloride/Sodium Chloride 1,000 ml @ 100 mls/hr Q10H IV Last administered on 09/20/16 01:57; Start 09/19/16 at 12:30; Stop 09/20/16 at 08:19 ; Status DC Heparin Sodium (Porcine) (Heparin Sq) 5,000 unit Q8HRS SQ Last administered on 09/23/16 06:26; Start 09/19/16 at 14:00 Amino Acids/ Glycerin/ Electrolytes 1,000 ml @ 75 mls/hr [id number] IV Last administered on 09/23/16 02:13; Start 09/20/16 at 08:30 Dextrose (Dextrose 50%-Water Syringe) 25 gm PRN Q15MIN PRN IV SEE COMMENTS Last administered on 09/20/16 11:52; Start 09/20/16 at 11:45 Iohexol (Omnipaque 350 Mg/ml) 400 ml 1X ONCE PO Last administered on 12:37; Start 09/20/16 at 12:15; Stop 09/20/16 at 12:16; Status DC Levofloxacin/ Dextrose 100 ml @ 100 mls/hr 1X PREOP PRN IV PRIOR TO PROCEDURE ; Start 09/21/16 at 17:30; Stop 09/22/16 at 18:00; Status DC Ondansetron HCl (Zofran) 4 mg PRN Q6HRS PRN IV NAUSEA/VOMITING; Start 09/22/16 at 07:45; Stop 09/23/16 at 07:44; Status DC Fentanyl Citrate (Fentanyl 2ml Vial) 25 mcg PRN Q5MIN PRN IV MILD PAIN; Start 09/22/16 at 07:45; Stop 09/23/16 at 07:44; Status DC Fentanyl Citrate (Fentanyl 2ml Vial) 50 mcg PRN Q5MIN PRN IV MODERATE PAIN; Start 09/22/16 at 07:45; Stop 09/23/16 at 07:44; Status DC Morphine Sulfate 1 mg PRN Q10MIN PRN IV SEVERE PAIN; Start 09/22/16 at 07:45; Stop 09/23/16 at 07:44; Status DC Ringer's Solution 1,000 ml @ 30 mls/hr Q24H IV ; Start 09/22/16 at 07:45; Stop 09/22/16 at 19:44; Status DC Lidocaine HCl 2 ml PRN 1X PRN ID PRIOR TO IV START; Start 09/22/16 at 07:45; Stop 09/23/16 at 07:44; Status DC Hydromorphone HCl (Dilaudid) 0.5 mg PRN Q10MIN PRN IV SEV PAIN, Second choice; Start 09/22/16 at 07:45; Stop 09/23/16 at 07:44; Status DC Prochlorperazine Edisylate (Compazine) 5 mg PACU PRN PRN IV NAUSEA, MRX1; Start 09/22/16 at 07:45; Stop 09/23/16 at 07:44; Status DC Lorazepam (Ativan) 0.5 mg 1X ONCE IV Last administered on 09/22/16t 12:08; Start 09/22/16 at 12:00; Stop 09/22/16 at 12:03; Status DC Active Scripts Active Senna S Tablet (Sennosides/Docusate Sodium) 1 Each Tablet 1 Each PO DAILY Reported Lexapro (Escitalopram Oxalate) 20 Mg Tablet 1 Tab PO DAILY Lisinopril-Hctz 20-12.5 Mg Tab (Lisinopril/Hydrochlorothiazide) 1 Each Tablet 1 Tab PO DAILY Lipitor (Atorvastatin Calcium) 20 Mg Tablet 20 Mg PO HS Ambien (Zolpidem Tartrate) 5 Mg Tablet 1 Tab PO QHS Lyrica (Pregabalin) 150 Mg Capsule 150 Mg PO BID 30 Days Buspirone Hcl 10 Mg Tablet 10 Mg PO BID Aspir 81 (Aspirin) 81 Mg Tablet. 1 Tab PO DAILY Vitals/I & O Vital Sign - Last 24 Hours 09/22/16 09/22/16 09/22/16 09/22/16 10:39 10:59 15:00 17:34 Temp 98.6 98.1 98.6 98.1 Pulse 75 76 Resp 18 20 B/P (MAP) 201/86 201/86 (124) 160/62 (94) Pulse Ox 100 98 O2 Delivery Room Air Room Air Room Air 09/22/16 09/22/16 09/22/16 09/22/16 19:00 20:00 20:52 21:22 Temp 98.8 98.8 Pulse 88 Resp 16 20 20 B/P (MAP) 167/82 (110) Pulse Ox 98 98 97 O2 Delivery Room Air Room Air Room Air Room Air 09/22/16 09/23/16 09/23/16 09/23/16 23:00 03:00 07:00 08:00 Temp 97.7 97.9 97.5 97.7 97.9 97.5 Pulse 74 73 72 Resp 16 16 18 B/P (MAP) 127/46 (73) 149/71 (97) 119/71 (87) Pulse Ox 97 96 98 O2 Delivery Room Air Room Air Room Air Room Air Intake and Output 09/22/16 09/22/16 09/23/16 15:00 23:00 07:00 Intake Total 671 ml 0 ml Output Total 700 ml 1200 ml Balance -29 ml -1200 ml Problem List Problems Medical Problems: (1) Abdominal pain Status: Acute (2) Nausea and vomiting Status: Acute Assessment To me, seems SBO not resolved. May be only partial, but clinically high-grade. Plan of Care Note I would favor re-hook to suction and continue until output at least approaches normal, then re-evaluate. BLANCA LEYVA MD Sep 23, 2016 10:19
[2016-09-23 11:00] VITALS: BP 161/78
[2016-09-23] MEDS: ONDANSETRON PF 4 MG/2 ML VIAL. IV PRN ×2 (11:08→16:26)
--- NOTE | 2016-09-23 11:35 | PDOC ---
PROGRESS NOTES Chief Complaint Chief Complaint Abdominal pain ( recurrent SBO) ASSESSMENT AND PLAN: 1. SBO: recurrent, had been discharged for same just 2 day prior to current admit. 2/2 adhesion likely. clin improving; d/c NGT. surgery on hold for now. 2. Nutrition: on PPN for now. advance diet as per surgery 3. HTN/HLD: well controlled; cont as danyell 4. CAD: hx CABG. no acute issues 5. DM2: well controlled. ISS 6. Hypokalemia: resolved 7. Prophylaxis: heparin SQ 8. Sore throat: 2/2 NGT. hurricane spray PRN 9. Dispo: OOB, OT/PT History of Present Illness History of Present Illness feels better, BM this morning. sore throat Vitals Vitals Vital Signs Date Time Temp Pulse Resp B/P (MAP) Pulse Ox O2 Delivery O2 Flow Rate FiO2 09/23/16 08:00 Room Air 09/23/16 07:00 97.5 72 18 119/71 (87) 98 97.5 Physical Exam General: Alert, Oriented X3, Cooperative, No acute distress Heart: Regular rate, No murmurs Lungs: Clear, Other (no r/r/w) Abdomen: Soft, No tenderness Extremities: No clubbing, No cyanosis Skin: No rashes, No breakdown Labs LABS Laboratory Tests Test 09/22/16 16:36 09/22/16 20:42 09/23/16 07:20 09/23/16 10:59 Glucose (Fingerstick) 100 mg/dL (70-99) 123 mg/dL (70-99) 112 mg/dL (70-99) 114 mg/dL (70-99) LEMUEL RIVERA MD Sep 23, 2016 11:35
[2016-09-23] MEDS: MORPHINE SULFATE 4 MG/ML DISP.SYRIN. IV PRN ×4 (12:25→22:40)
[2016-09-23 15:00] VITALS: BP 141/66
[2016-09-23 19:31] VITALS: BP 124/57
[2016-09-23 23:14] VITALS: BP 146/63
[2016-09-24 03:21] VITALS: BP 127/54
[2016-09-24] MEDS: AMINO AC 3%/ELECTROLYTE/GLYCER 1,000 ML IV SCH ×2 (04:38→18:17)
[2016-09-24] MEDS: MORPHINE SULFATE 4 MG/ML DISP.SYRIN. IV PRN ×2 (04:38→09:09)
[2016-09-24 04:54] LABS: BASO % 0 % (0-3); EOS % 1 % (0-3); HEMATOCRIT 36.7 % (36.0-47.0); HEMOGLOBIN 12.7 g/dL (12.0-15.5); LYMPH # 1.3 x10^3/uL (1.0-4.8); LYMPH % 15 % (24-48); MEAN CORPUSCULAR HEMOGLOBIN 32 pg (25-35); MEAN CORPUSCULAR HGB CONC 35 g/dL (31-37); MEAN CORPUSCULAR VOLUME 93 fL (79-100); MONO % 9 % (0-9); NEUT % 75 % (31-73); PLATELET COUNT 336 x10^3/uL (140-400); RED BLOOD COUNT 3.94 x10^6/uL (3.50-5.40); RED CELL DISTRIBUTION WIDTH 13.9 % (11.5-14.5); WHITE BLOOD COUNT 9.1 x10^3/uL (4.0-11.0)
[2016-09-24 05:23] LABS: ALBUMIN 2.9 g/dL (3.4-5.0); ALBUMIN/GLOBULIN RATIO 0.6 (1.0-1.7); CREATININE 0.9 mg/dL (0.6-1.0); GFR 73.9; POTASSIUM 4.5 mmol/L (3.5-5.1); TOTAL BILIRUBIN 0.3 mg/dL (0.2-1.0); TOTAL PROTEIN 7.6 g/dL (6.4-8.2)
[2016-09-24] MEDS: HEPARIN PF for SUB-Q USE 5,000 UNIT/0.5 ML VIAL. SQ SCH ×3 (06:15→21:32)
[2016-09-24 07:00] VITALS: BP 166/73
[2016-09-24] MEDS: ONDANSETRON PF 4 MG/2 ML VIAL. IV PRN (09:00)
[2016-09-24] MEDS: FAMOTIDINE 20 MG/2 ML VIAL IVP SCH (09:01)
--- NOTE | 2016-09-24 10:27 | PDOC ---
Subjective: Subjective: Not feeling quite right, but not necessarily in pain. Denies n/v. +flatus Doesn't feel bloated. Objective: Objective: D/w RN - NG out yesterday, tolerating small amounts of clears, BM x 2 yesterday (none since), received sesame oil again this morning. Vital Signs: Vital Signs Date Time Temp Pulse Resp B/P (MAP) Pulse Ox O2 Delivery O2 Flow Rate FiO2 09/24/16 10:10 Room Air 09/24/16 07:00 98.1 77 20 166/73 (104) 96 98.1 Labs: Laboratory Tests Test 09/23/16 10:59 09/23/16 17:11 09/23/16 20:43 09/24/16 07:17 Glucose (Fingerstick) 114 mg/dL (70-99) 112 mg/dL (70-99) 146 mg/dL (70-99) 156 mg/dL (70-99) PE: GEN: NAD LUNGS: CTAB HEART: RRR ABD: BS+, distended NEURO/PSYCH: A & O 3 A/P: Recurrent SBO -- Will review w/ Dr. Johsnon. EDMOND BAIRD Sep 24, 2016 10:27
[2016-09-24 11:00] VITALS: BP 110/56
--- NOTE | 2016-09-24 12:22 | PDOC ---
PROGRESS NOTES Chief Complaint Chief Complaint Abdominal pain ( recurrent SBO) ASSESSMENT AND PLAN: 1. SBO: recurrent, had been discharged for same just 2 day prior to current admit. 2/2 adhesion likely. tolerating clears, mult BM. still +pain. GI and surgery services following 2. Nutrition: on PPN for now. advance diet as per surgery 3. Pain control: still requiring frequent meds for upper abd diffuse pain. switch to PO toradol. IV H2B to PO PPI 4. HTN/HLD: well controlled; cont as danyell 5. CAD: hx CABG. no acute issues 6. DM2: well controlled. ISS 7. Hypokalemia: resolved 8. Hyponatremia: new, mild. monitor with improving PO intake and PPN IV 9. Prophylaxis: heparin SQ 10. Dispo: OOB, OT/PT History of Present Illness History of Present Illness pain persisting in epigastrium. Vitals Vitals Vital Signs Date Time Temp Pulse Resp B/P (MAP) Pulse Ox O2 Delivery O2 Flow Rate FiO2 09/24/16 11:00 99.1 72 20 110/56 (74) 97 Room Air 99.1 Physical Exam General: Alert, Oriented X3, Cooperative, No acute distress Heart: Regular rate, No murmurs Lungs: Clear, Other (no r/r/w) Abdomen: Normal bowel sounds, Soft, Other (mild epigastric TTP) Extremities: No clubbing, No cyanosis Skin: No rashes, No breakdown Labs LABS Laboratory Tests Test 09/23/16 17:11 09/23/16 20:43 09/24/16 04:05 09/24/16 07:17 Glucose (Fingerstick) 112 mg/dL (70-99) 146 mg/dL (70-99) 156 mg/dL (70-99) White Blood Count 9.1 x10^3/uL (4.0-11.0) Red Blood Count 3.94 x10^6/uL (3.50-5.40) Hemoglobin 12.7 g/dL (12.0-15.5) Hematocrit 36.7 % (36.0-47.0) Mean Corpuscular Volume 93 fL (79-100) Mean Corpuscular Hemoglobin 32 pg (25-35) Mean Corpuscular Hemoglobin Concent 35 g/dL (31-37) Red Cell Distribution Width 13.9 % (11.5-14.5) Platelet Count 336 x10^3/uL (140-400) Neutrophils (%) (Auto) 75 % (31-73) Lymphocytes (%) (Auto) 15 % (24-48) Monocytes (%) (Auto) 9 % (0-9) Eosinophils (%) (Auto) 1 % (0-3) Basophils (%) (Auto) 0 % (0-3) Neutrophils # (Auto) 6.8 x10^3uL (1.8-7.7) Lymphocytes # (Auto) 1.3 x10^3/uL (1.0-4.8) Monocytes # (Auto) 0.9 x10^3/uL (0.0-1.1) Eosinophils # (Auto) 0.1 x10^3/uL (0.0-0.7) Basophils # (Auto) 0.0 x10^3/uL (0.0-0.2) Sodium Level 133 mmol/L (136-145) Potassium Level 4.5 mmol/L (3.5-5.1) Chloride Level 98 mmol/L (98-107) Carbon Dioxide Level 27 mmol/L (21-32) Anion Gap 8 (6-14) Blood Urea Nitrogen 14 mg/dL (7-20) Creatinine 0.9 mg/dL (0.6-1.0) Estimated GFR (Cockcroft-Gault) 73.9 BUN/Creatinine Ratio 16 (6-20) Glucose Level 136 mg/dL (70-99) Calcium Level 9.0 mg/dL (8.5-10.1) Total Bilirubin 0.3 mg/dL (0.2-1.0) Aspartate Amino Transf (AST/SGOT) 24 U/L (15-37) Alanine Aminotransferase (ALT/SGPT) 20 U/L (14-59) Alkaline Phosphatase 88 U/L (46-116) Total Protein 7.6 g/dL (6.4-8.2) Albumin 2.9 g/dL (3.4-5.0) Albumin/Globulin Ratio 0.6 (1.0-1.7) Test 09/24/16 10:59 Glucose (Fingerstick) 157 mg/dL (70-99) LEMUEL RIVERA MD Sep 24, 2016 12:22
[2016-09-24] MEDS: PANTOPRAZOLE 40 MG TABLET.DR. PO SCH (13:42)
[2016-09-24] MEDS: traMADol 50 MG TABLET PO PRN ×2 (13:44→21:28)
[2016-09-24 15:04] VITALS: BP 144/67
--- NOTE | 2016-09-24 16:32 | PDOC ---
Provider Note Provider Note SURG Louie Carrillo headed to the bedside commode to have a BM tolerating clears belly soft will advance to fulls ROMI BARBOZA MD Sep 24, 2016 16:32
[2016-09-24 19:00] VITALS: BP 148/72
[2016-09-24 23:00] VITALS: BP 168/69
[2016-09-25] VITALS (12 sets, daily range): BP systolic 121–191; BP diastolic 48–86
[2016-09-25] MEDS: traMADol 50 MG TABLET PO PRN ×2 (03:14→09:49)
[2016-09-25] MEDS: ONDANSETRON PF 4 MG/2 ML VIAL. IV PRN (05:35)
[2016-09-25] MEDS: HEPARIN PF for SUB-Q USE 5,000 UNIT/0.5 ML VIAL. SQ SCH ×3 (05:36→22:00)
[2016-09-25] MEDS: AMINO AC 3%/ELECTROLYTE/GLYCER 1,000 ML IV SCH ×2 (06:27→23:46)
[2016-09-25 06:56] LABS: CALCIUM 9.1 mg/dL (8.5-10.1); CREATININE 0.8 mg/dL (0.6-1.0); GFR 84.6; POTASSIUM 4.4 mmol/L (3.5-5.1)
[2016-09-25] MEDS: PANTOPRAZOLE 40 MG TABLET.DR. PO SCH (08:43)
[2016-09-25] MEDS: hydrALAZINE 20 MG/ML VIAL. IVP PRN ×2 (08:44→17:24)
--- NOTE | 2016-09-25 09:05 | PDOC ---
XAVIER LOGAN AREA OPERATIONS MANAGER 09/25/16 0905: SURGICAL PROGRESS NOTE Subjective not feeling well today + nausea, + bloating less bowel function Vital Signs Vital Signs Date Time Temp Pulse Resp B/P (MAP) Pulse Ox O2 Delivery O2 Flow Rate FiO2 09/25/16 08:44 78 191/86 09/25/16 07:00 97.5 20 97 Room Air 97.5 I&O Intake and Output 09/25/16 07:00 Intake Total 2240 ml Balance 2240 ml Intake Oral 240 ml IV Total 1000 ml Other 1000 ml # Voids 3 # Bowel Movements 1 General: Alert, Oriented X3, Cooperative, No acute distress Abdomen: Soft, Other (mild tenderness diffusely on exam, moderate distention ) Labs Laboratory Tests Test 09/23/16 10:59 09/23/16 17:11 09/23/16 20:43 09/24/16 04:05 Glucose (Fingerstick) 114 mg/dL (70-99) 112 mg/dL (70-99) 146 mg/dL (70-99) White Blood Count 9.1 x10^3/uL (4.0-11.0) Red Blood Count 3.94 x10^6/uL (3.50-5.40) Hemoglobin 12.7 g/dL (12.0-15.5) Hematocrit 36.7 % (36.0-47.0) Mean Corpuscular Volume 93 fL (79-100) Mean Corpuscular Hemoglobin 32 pg (25-35) Mean Corpuscular Hemoglobin Concent 35 g/dL (31-37) Red Cell Distribution Width 13.9 % (11.5-14.5) Platelet Count 336 x10^3/uL (140-400) Neutrophils (%) (Auto) 75 % (31-73) Lymphocytes (%) (Auto) 15 % (24-48) Monocytes (%) (Auto) 9 % (0-9) Eosinophils (%) (Auto) 1 % (0-3) Basophils (%) (Auto) 0 % (0-3) Neutrophils # (Auto) 6.8 x10^3uL (1.8-7.7) Lymphocytes # (Auto) 1.3 x10^3/uL (1.0-4.8) Monocytes # (Auto) 0.9 x10^3/uL (0.0-1.1) Eosinophils # (Auto) 0.1 x10^3/uL (0.0-0.7) Basophils # (Auto) 0.0 x10^3/uL (0.0-0.2) Sodium Level 133 mmol/L (136-145) Potassium Level 4.5 mmol/L (3.5-5.1) Chloride Level 98 mmol/L (98-107) Carbon Dioxide Level 27 mmol/L (21-32) Anion Gap 8 (6-14) Blood Urea Nitrogen 14 mg/dL (7-20) Creatinine 0.9 mg/dL (0.6-1.0) Estimated GFR (Cockcroft-Gault) 73.9 BUN/Creatinine Ratio 16 (6-20) Glucose Level 136 mg/dL (70-99) Calcium Level 9.0 mg/dL (8.5-10.1) Total Bilirubin 0.3 mg/dL (0.2-1.0) Aspartate Amino Transf (AST/SGOT) 24 U/L (15-37) Alanine Aminotransferase (ALT/SGPT) 20 U/L (14-59) Alkaline Phosphatase 88 U/L (46-116) Total Protein 7.6 g/dL (6.4-8.2) Albumin 2.9 g/dL (3.4-5.0) Albumin/Globulin Ratio 0.6 (1.0-1.7) Test 09/24/16 07:17 09/24/16 10:59 09/24/16 16:02 09/24/16 20:41 Glucose (Fingerstick) 156 mg/dL (70-99) 157 mg/dL (70-99) 117 mg/dL (70-99) 158 mg/dL (70-99) Test 09/25/16 06:15 09/25/16 07:04 Sodium Level 130 mmol/L (136-145) Potassium Level 4.4 mmol/L (3.5-5.1) Chloride Level 95 mmol/L (98-107) Carbon Dioxide Level 23 mmol/L (21-32) Anion Gap 12 (6-14) Blood Urea Nitrogen 15 mg/dL (7-20) Creatinine 0.8 mg/dL (0.6-1.0) Estimated GFR (Cockcroft-Gault) 84.6 Glucose Level 156 mg/dL (70-99) Calcium Level 9.1 mg/dL (8.5-10.1) Glucose (Fingerstick) 144 mg/dL (70-99) Laboratory Tests Test 09/24/16 10:59 09/24/16 16:02 09/24/16 20:41 09/25/16 06:15 Glucose (Fingerstick) 157 mg/dL (70-99) 117 mg/dL (70-99) 158 mg/dL (70-99) Sodium Level 130 mmol/L (136-145) Potassium Level 4.4 mmol/L (3.5-5.1) Chloride Level 95 mmol/L (98-107) Carbon Dioxide Level 23 mmol/L (21-32) Anion Gap 12 (6-14) Blood Urea Nitrogen 15 mg/dL (7-20) Creatinine 0.8 mg/dL (0.6-1.0) Estimated GFR (Cockcroft-Gault) 84.6 Glucose Level 156 mg/dL (70-99) Calcium Level 9.1 mg/dL (8.5-10.1) Test 09/25/16 07:04 Glucose (Fingerstick) 144 mg/dL (70-99) Problem List Problems Medical Problems: (1) Abdominal pain Status: Acute (2) Nausea and vomiting Status: Acute Assessment/Plan sbo, feels worse today NPO, will review with Dr Carrillo Problems: MALATHI CARRILLO MD 09/25/16 1315: SURGICAL PROGRESS NOTE Subjective Pt seen and examined. Agree with Ms. Logan's note Pt with c/o abd pain and bloating abd soft, distended, mild TTP d/w hospitalist d/w pt extensive attempts at resolution with conservative measures (NGT, SBFT x 2, bowel rest, sesame seed oil) with two hospitalizations here and previous at outside facility. Given this, pt will benefit from exploratory laparotomy with lysis of adhesions. R/B/A d/w pt, risks, including, but not limited to: bleeding, infection, damage to surrounding structures, risk of anesthesia. Patient appears to understand, her questions are answered and she agrees to proceed. HERBERTH LOGANZACH Perez APRN Sep 25, 2016 09:05 MALATHI CARRILLO MD Sep 25, 2016 13:15
--- NOTE | 2016-09-25 09:39 | PDOC ---
PROGRESS NOTES Chief Complaint Chief Complaint Abdominal pain ( recurrent SBO) ASSESSMENT AND PLAN: 1. SBO: recurrent, had been discharged for same just 2 day prior to current admit. 2/2 adhesion likely. worse sx today. GI and surgery services following; suspect surg required 2. Nutrition: on PPN for now. back to NPO due to worsening sx 3. Pain control: still requiring frequent meds for upper abd diffuse pain. switch to PO toradol. IV H2B to PO PPI 4. HTN/HLD: well controlled; cont as danyell 5. CAD: hx CABG. no acute issues 6. DM2: well controlled. ISS 7. Hypokalemia: resolved 8. Hyponatremia: worsening. will need IV NS due to 9. Prophylaxis: heparin SQ History of Present Illness History of Present Illness pain persisting in epigastrium. Vitals Vitals Vital Signs Date Time Temp Pulse Resp B/P (MAP) Pulse Ox O2 Delivery O2 Flow Rate FiO2 09/25/16 08:44 78 191/86 09/25/16 07:00 97.5 20 97 Room Air 97.5 Physical Exam General: Alert, Oriented X3, Cooperative, No acute distress Heart: Regular rate, No murmurs Lungs: Clear, Other (no r/r/w) Abdomen: Soft, Other (mild tenderness diffusely on exam, moderate distention ) Extremities: No clubbing, No cyanosis Skin: No rashes, No breakdown Labs LABS Laboratory Tests Test 09/24/16 10:59 09/24/16 16:02 09/24/16 20:41 09/25/16 06:15 Glucose (Fingerstick) 157 mg/dL (70-99) 117 mg/dL (70-99) 158 mg/dL (70-99) Sodium Level 130 mmol/L (136-145) Potassium Level 4.4 mmol/L (3.5-5.1) Chloride Level 95 mmol/L (98-107) Carbon Dioxide Level 23 mmol/L (21-32) Anion Gap 12 (6-14) Blood Urea Nitrogen 15 mg/dL (7-20) Creatinine 0.8 mg/dL (0.6-1.0) Estimated GFR (Cockcroft-Gault) 84.6 Glucose Level 156 mg/dL (70-99) Calcium Level 9.1 mg/dL (8.5-10.1) Test 09/25/16 07:04 Glucose (Fingerstick) 144 mg/dL (70-99) LEMUEL RIVERA MD Sep 25, 2016 09:39
--- NOTE | 2016-09-25 09:43 | PDOC ---
Subjective: Subjective: Feeling worse today. Nausea and abd pain. Not passing gas, no stool since Tues she thinks. Objective: Objective: Reviewed other notes, back to NPO. Vital Signs: Vital Signs Date Time Temp Pulse Resp B/P (MAP) Pulse Ox O2 Delivery O2 Flow Rate FiO2 09/25/16 08:44 78 191/86 09/25/16 07:00 97.5 20 97 Room Air 97.5 Labs: Laboratory Tests Test 09/24/16 10:59 09/24/16 16:02 09/24/16 20:41 09/25/16 06:15 Glucose (Fingerstick) 157 mg/dL 117 mg/dL 158 mg/dL Sodium Level 130 mmol/L Potassium Level 4.4 mmol/L Chloride Level 95 mmol/L Carbon Dioxide Level 23 mmol/L Anion Gap 12 Blood Urea Nitrogen 15 mg/dL Creatinine 0.8 mg/dL Estimated GFR (Cockcroft-Gault) 84.6 Glucose Level 156 mg/dL Calcium Level 9.1 mg/dL Test 09/25/16 07:04 Glucose (Fingerstick) 144 mg/dL PE: GEN: NAD LUNGS: clear HEART: RRR ABD: BS quiet, distended, tighter NEURO/PSYCH: A & O 3, less perky today A/P: Recurrent SBO -- Feels worse today. ?retry NG tube AJ-EDMOND FRANCOIS Sep 25, 2016 09:43
[2016-09-25] MEDS ORDERED: SEVOFLURANE 61 TO 120 MINUTES. IH ONE (13:40)
[2016-09-25] MEDS ORDERED: PROPOFOL 20 ML IV ONE (13:41)
[2016-09-25] MEDS ORDERED: fentaNYL PF VIAL 100 MCG/2 ML VIAL ONE ×4 (13:41→17:14)
[2016-09-25] MEDS ORDERED: GLYCOPYRROLATE 1 MG/5 ML VIAL. ONE (13:41)
[2016-09-25] MEDS ORDERED: LIDOCAINE 2% PF Vial for OR 5 ML VIAL. ONE (13:42)
[2016-09-25] MEDS ORDERED: DEXAMETHASONE SOD PHOS 20 MG/5 ML VIAL. ONE (13:42)
[2016-09-25] MEDS ORDERED: ONDANSETRON PF 4 MG/2 ML VIAL. ONE (13:42)
[2016-09-25] MEDS ORDERED: IV RINGERS,LACTATED 1000ML 1,000 ML IV SCH ×2 (13:53→16:25)
[2016-09-25] MEDS ORDERED: fentaNYL PF VIAL 100 MCG/2 ML VIAL IV PRN ×2 (14:00→14:15)
[2016-09-25] MEDS ORDERED: HYDROmorphone 2 MG/ML VIAL IV PRN (14:00)
[2016-09-25] MEDS ORDERED: LIDOCAINE 1% 1 ML SYRINGE. ID PRN (14:00)
[2016-09-25] MEDS ORDERED: MORPHINE SULFATE 4 MG/ML DISP.SYRIN. IV PRN (14:00)
[2016-09-25] MEDS ORDERED: PROCHLORPERAZINE 10 MG/2 ML VIAL. IV PRN (14:00)
[2016-09-25] MEDS ORDERED: ONDANSETRON PF 4 MG/2 ML VIAL. IV PRN (14:00)
[2016-09-25] MEDS ORDERED: SUCCINYLCHOLINE 200 MG/10 ML VIAL. ONE (14:20)
[2016-09-25] MEDS ORDERED: 0.9 % SODIUM CHLORIDE 10 ML DISP.SYRIN. IV PRN (16:30)
[2016-09-25] MEDS ORDERED: NALOXONE 0.4 MG/ML VIAL. IV PRN (16:30)
--- NOTE | 2016-09-25 16:36 | RAD ---
Portable abdomen, 09/25/2016: History: Postop evaluation Radiopacities compatible with surgical drains are projected over the right paraspinous region and left upper quadrant. There are old surgical clips in the left pelvis. There is a small amount of gas and retained contrast material in the colon. There is no evidence of a retained surgical instrument, needle or radiopaque sponge.
--- NOTE | 2016-09-25 16:45 | PDOC4 ---
OPERATIVE NOTE Date: Date: Sep 25, 2016 Pre-Op Diagnosis: Small bowel obstruction Post-Op Diagnosis: same, metastatic adenocarcinoma favor recurrent uterine Procedure Performed: Exploratory laparotomy, lysis of adhesions, gastrostomy tube placement Surgeon: Johnathan Freitas Anesthesia Type: GETA Blood Loss: 100 Specimans Obtained: abdominal wall mass, consistent with metastatic adenocarcinoma, ascites Findings: small bowel obstruction secondary to adhesion involving the lower abdominal incision/malignancy, ascites, extensive miliary disease in the lower abdomen and pelvis Complications: none Operative Note: Patient was taken to the OR, induced under GETA, and prepped over the abdominal wall in the usual fashion. Previous midline incision was reopened using cautery. Ascites was encountered. Sample was sent to pathology. The above findings were noted. A biopsy was obtained from the abdominal wall near the umbilicus and sent to pathology. Frozen section was consistent with metastatic adenocarcinoma. An extensive lysis of adhesions was performed, mainly involving a portion of the distal ileum involving the lower abdominal incision. It was carefully taken off the fascia, which was difficult. Serosal tears, inherent to the procedure, where made and repaired with 3 0 vicryl. No obvious mucosal defect was noted. The small bowel appeared to be patent otherwise and was run from the ligament of treitz to the terminal ileum. Extensive miliary disease was noted, but no additional obvious obstruction was noted. However, given the diffuse nature of the disease, and concern for recurrence of bowel obstruction, a gastrostomy tube was felt to be beneficial. A 24 F g-tube was brought through the left upper quadrant abdominal wall, placed into the stomach between two 3 0 vicryl pursestrings and the balloon was inflated. The abdominal cavity was copiously irrigated. No evidence of bleeding or other pathology noted. Fascia repaired with 0 PDS looped x 2. Berry placed in the subcutaneous tissue. Skin repaired with 3 0 vicryl and 4 0 monocryl. Sterile dressing placed. G-tube secured with 3 0 nylon. No immediate complications. All counts correct. Wound class 3. Patient sent to PACU in a stable condition. JOHNATHAN FREITAS MD Sep 25, 2016 16:45
[2016-09-25] MEDS: fentaNYL PF VIAL 100 MCG/2 ML VIAL IV PRN ×2 (17:18→17:31)
[2016-09-25] MEDS: IV RINGERS,LACTATED 1000ML 1,000 ML IV SCH ×2 (20:32→22:47)
[2016-09-25] MEDS: IV NORMAL SALINE 1000ML BAG 1,000 ML IV SCH (20:32)
[2016-09-25] MEDS: ENOXAPARIN 40 MG/0.4 ML SYRINGE. SQ SCH (20:33)
[2016-09-26 02:54] VITALS: BP 135/67
[2016-09-26] MEDS: HEPARIN PF for SUB-Q USE 5,000 UNIT/0.5 ML VIAL. SQ SCH ×3 (05:59→22:54)
[2016-09-26 07:00] VITALS: BP 140/71
[2016-09-26 07:06] LABS: BASO % 0 % (0-3); EOS % 0 % (0-3); HEMATOCRIT 42.9 % (36.0-47.0); HEMOGLOBIN 14.3 g/dL (12.0-15.5); LYMPH # 0.5 x10^3/uL (1.0-4.8); LYMPH % 7 % (24-48); MEAN CORPUSCULAR HEMOGLOBIN 32 pg (25-35); MEAN CORPUSCULAR HGB CONC 33 g/dL (31-37); MEAN CORPUSCULAR VOLUME 96 fL (79-100); MONO % 7 % (0-9); NEUT % 86 % (31-73); PLATELET COUNT 356 x10^3/uL (140-400); RED BLOOD COUNT 4.48 x10^6/uL (3.50-5.40); RED CELL DISTRIBUTION WIDTH 14.5 % (11.5-14.5); WHITE BLOOD COUNT 7.3 x10^3/uL (4.0-11.0)
[2016-09-26] MEDS: PANTOPRAZOLE 40 MG TABLET.DR. PO SCH (07:30)
--- NOTE | 2016-09-26 09:31 | PDOC ---
SURGICAL PROGRESS NOTE Subjective incisional pain some nausea Vital Signs Vital Signs Date Time Temp Pulse Resp B/P (MAP) Pulse Ox O2 Delivery O2 Flow Rate FiO2 09/26/16 07:00 99.0 98 16 140/71 (94) 100 Nasal Cannula 2.0 99.0 I&O Intake and Output 09/26/16 07:00 Intake Total 1350 ml Output Total 905 ml Balance 445 ml IV Total 1350 ml Output Urine Total 605 ml Drainage Total 200 ml Estimated Blood Loss 100 ml # Voids 2 PATIENT HAS A FLORES: Yes General: Alert, Oriented X3, Cooperative, No acute distress Abdomen: Soft, Other (dressing dry) Labs Laboratory Tests Test 09/24/16 10:59 09/24/16 16:02 09/24/16 20:41 09/25/16 06:15 Glucose (Fingerstick) 157 mg/dL (70-99) 117 mg/dL (70-99) 158 mg/dL (70-99) Sodium Level 130 mmol/L (136-145) Potassium Level 4.4 mmol/L (3.5-5.1) Chloride Level 95 mmol/L (98-107) Carbon Dioxide Level 23 mmol/L (21-32) Anion Gap 12 (6-14) Blood Urea Nitrogen 15 mg/dL (7-20) Creatinine 0.8 mg/dL (0.6-1.0) Estimated GFR (Cockcroft-Gault) 84.6 Glucose Level 156 mg/dL (70-99) Calcium Level 9.1 mg/dL (8.5-10.1) Test 09/25/16 07:04 09/25/16 11:35 09/25/16 17:35 09/25/16 20:38 Glucose (Fingerstick) 144 mg/dL (70-99) 159 mg/dL (70-99) 197 mg/dL (70-99) 223 mg/dL (70-99) Test 09/26/16 06:05 White Blood Count 7.3 x10^3/uL (4.0-11.0) Red Blood Count 4.48 x10^6/uL (3.50-5.40) Hemoglobin 14.3 g/dL (12.0-15.5) Hematocrit 42.9 % (36.0-47.0) Mean Corpuscular Volume 96 fL (79-100) Mean Corpuscular Hemoglobin 32 pg (25-35) Mean Corpuscular Hemoglobin Concent 33 g/dL (31-37) Red Cell Distribution Width 14.5 % (11.5-14.5) Platelet Count 356 x10^3/uL (140-400) Neutrophils (%) (Auto) 86 % (31-73) Lymphocytes (%) (Auto) 7 % (24-48) Monocytes (%) (Auto) 7 % (0-9) Eosinophils (%) (Auto) 0 % (0-3) Basophils (%) (Auto) 0 % (0-3) Neutrophils # (Auto) 6.2 x10^3uL (1.8-7.7) Lymphocytes # (Auto) 0.5 x10^3/uL (1.0-4.8) Monocytes # (Auto) 0.5 x10^3/uL (0.0-1.1) Eosinophils # (Auto) 0.0 x10^3/uL (0.0-0.7) Basophils # (Auto) 0.0 x10^3/uL (0.0-0.2) Laboratory Tests Test 09/25/16 11:35 09/25/16 17:35 09/25/16 20:38 09/26/16 06:05 Glucose (Fingerstick) 159 mg/dL (70-99) 197 mg/dL (70-99) 223 mg/dL (70-99) White Blood Count 7.3 x10^3/uL (4.0-11.0) Red Blood Count 4.48 x10^6/uL (3.50-5.40) Hemoglobin 14.3 g/dL (12.0-15.5) Hematocrit 42.9 % (36.0-47.0) Mean Corpuscular Volume 96 fL (79-100) Mean Corpuscular Hemoglobin 32 pg (25-35) Mean Corpuscular Hemoglobin Concent 33 g/dL (31-37) Red Cell Distribution Width 14.5 % (11.5-14.5) Platelet Count 356 x10^3/uL (140-400) Neutrophils (%) (Auto) 86 % (31-73) Lymphocytes (%) (Auto) 7 % (24-48) Monocytes (%) (Auto) 7 % (0-9) Eosinophils (%) (Auto) 0 % (0-3) Basophils (%) (Auto) 0 % (0-3) Neutrophils # (Auto) 6.2 x10^3uL (1.8-7.7) Lymphocytes # (Auto) 0.5 x10^3/uL (1.0-4.8) Monocytes # (Auto) 0.5 x10^3/uL (0.0-1.1) Eosinophils # (Auto) 0.0 x10^3/uL (0.0-0.7) Basophils # (Auto) 0.0 x10^3/uL (0.0-0.2) Problem List Problems Medical Problems: (1) Abdominal pain Status: Acute (2) Nausea and vomiting Status: Acute Assessment/Plan POD#1 Exploratory laparotomy, lysis of adhesions, gastrostomy tube placement abdominal wall mass, consistent with metastatic adenocarcinoma, ascites oncology consult await bowel function Problems: XAVIER POLK VICE PRESIDENT CORPORATE COMMUNICATIONS Sep 26, 2016 09:31
[2016-09-26 09:36] LABS: PLT ESTIMATE ADEQUATE (ADEQUATE)
--- NOTE | 2016-09-26 09:44 | PDOC ---
Subjective: Subjective: ROADS SUPERINTENDENT helps pain. A little nausea. Objective: Objective: D/w Dr. Samano, reviewed notes. Previous cancer tx @ [facility], will return there after recovery from surgery. Vital Signs: Vital Signs Date Time Temp Pulse Resp B/P (MAP) Pulse Ox O2 Delivery O2 Flow Rate FiO2 09/26/16 07:00 99.0 98 16 140/71 (94) 100 Nasal Cannula 2.0 99.0 Labs: Laboratory Tests Test 09/25/16 11:35 09/25/16 17:35 09/25/16 20:38 09/26/16 06:05 Glucose (Fingerstick) 159 mg/dL 197 mg/dL 223 mg/dL White Blood Count 7.3 x10^3/uL Red Blood Count 4.48 x10^6/uL Hemoglobin 14.3 g/dL Hematocrit 42.9 % Mean Corpuscular Volume 96 fL Mean Corpuscular Hemoglobin 32 pg Mean Corpuscular Hemoglobin Concent 33 g/dL Red Cell Distribution Width 14.5 % Platelet Count 356 x10^3/uL Neutrophils (%) (Auto) 86 % Lymphocytes (%) (Auto) 7 % Monocytes (%) (Auto) 7 % Eosinophils (%) (Auto) 0 % Basophils (%) (Auto) 0 % Neutrophils # (Auto) 6.2 x10^3uL Lymphocytes # (Auto) 0.5 x10^3/uL Monocytes # (Auto) 0.5 x10^3/uL Eosinophils # (Auto) 0.0 x10^3/uL Basophils # (Auto) 0.0 x10^3/uL Segmented Neutrophils % 86 % Lymphocytes % 9 % Monocytes % 5 % Platelet Estimate Adequate PE: GEN: NAD, holding ROADS SUPERINTENDENT LUNGS: clear, nasal cannula HEART: RRR ABD: some distention but soft, tender NEURO/PSYCH: A & O 3 A/P: Recurrent SBO s/p laparotomy w/ SAEED Metastatic adenocarcinoma, ascites, h/o uterine cancer -- Continue per surgery. Dr. Pickett covering for Dr. Johnson today. EDMOND BAIRD Sep 26, 2016 09:44
[2016-09-26 11:00] VITALS: BP 145/61
[2016-09-26] MEDS: AMINO AC 3%/ELECTROLYTE/GLYCER 1,000 ML IV SCH (11:00)
[2016-09-26] MEDS: ENOXAPARIN 40 MG/0.4 ML SYRINGE. SQ SCH (11:01)
--- NOTE | 2016-09-26 13:39 | CONS ---
DATE OF CONSULTATION: 09/26/2016 MEDICAL ONCOLOGY CONSULTATION CONSULTATION REQUESTED BY: Dr. Sofya Campoverde and Dr. Johnathan Carrillo. REASON FOR CONSULTATION: Metastatic endometrial carcinoma. HISTORY OF PRESENT ILLNESS: The patient is a 76-year-old -[place]ian female who was diagnosed with stage 4 FIGO grade 3 uterine cancer, status post surgery performed on 08/09/2014, which revealed metastatic disease involving pericecal nodules, which are resected. She completed 3 cycles of adjuvant chemotherapy with Taxol and carboplatin. She also completed radiotherapy followed by brachytherapy. 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 She follows with Dr. Funk at [facility]. She was last evaluated on 06/26/2016 and she did not have any evidence of recurrence at that time and followup was recommended in 3 months. The patient has had ongoing abdominal discomfort, nausea and vomiting requiring admission to the hospital on 09/18/2016. Conservative management was attempted and GI was consulted. However, she had progressive symptoms requiring surgery on 09/25/2016. She underwent exploratory laparotomy and lysis of adhesions and a gastrostomy tube placement. She had evidence of small-bowel obstruction, ascites and extensive miliary disease in the lower abdomen and pelvis. Hence, I was consulted for further evaluation. PAST MEDICAL HISTORY: Uterine cancer as described above, history of renal failure requiring temporarily dialysis, history of CABG, total abdominal hysterectomy, bilateral salpingo-oophorectomy, cholecystectomy, AV fistula, hypercholesterolemia, hypertension. SOCIAL HISTORY: No smoking or alcohol abuse. FAMILY HISTORY: Aunt had breast cancer. REVIEW OF SYSTEMS: A 12-point review of system was performed. Pertinent positives are mentioned in the history of present illness. Rest of the system review is negative. PHYSICAL EXAMINATION: GENERAL APPEARANCE: The patient is a 76-year-old -Armenian female who is in no acute cardiorespiratory distress. VITAL SIGNS: Blood pressure 140/71, temperature 99 degrees. HEENT: Atraumatic, normocephalic. Eyes: No icterus. NECK: Supple. CHEST: Bilaterally symmetrical. No crepitations or rhonchi are heard. HEART: S1, S2 normal. ABDOMEN: Soft. She has evidence of dressing/postoperative wound dressing. No evidence of organomegaly. CENTRAL NERVOUS SYSTEM: No focal deficits. LYMPHATICS: No lymphadenopathy. SKIN: No rashes. PSYCHOLOGIC: Mood and affect are appropriate. LABORATORY DATA: WBC 7.3, hemoglobin 14.3, platelet count 356, creatinine 0.8. IMPRESSION AND PLAN: 1. Recurrent metastatic endometrial carcinoma, stage 4. She was initially diagnosed with endometrial carcinoma in 2014, status post surgery, chemotherapy and radiation therapy. She received carboplatin and Taxol at [facility] by Dr. Santiago Funk. She now has evidence of progressive disease. I have advised the patient and the son regarding the surgical findings and the evidence of progressive malignancy. I will await final pathology results. I would recommend follow up with Dr. Santiago Funk regarding further palliative chemotherapy. All her questions were answered. 2. Small-bowel obstruction, status post exploratory laparotomy and lysis of adhesions on 09/25/2016. Continue postoperative care for Dr. Johnathan Carrillo. JAIRON OSMAN MD DR: CARLOS/shani JOB#: [id number] / [id number] SOFYA Rowe STEPHEN MD PLUENNEKE, ROBERT MD [facility] MED[facility] CENTERMacie
--- NOTE | 2016-09-26 14:25 | PDOC ---
PROGRESS NOTES Chief Complaint Chief Complaint Abdominal pain ( recurrent SBO) ASSESSMENT AND PLAN: 1. SBO: s/p ex lap on 09/25: abdominal wall mass, consistent with metastatic adenocarcinoma, ascites; small bowel obstruction secondary to adhesion involving the lower abdominal incision/malignancy, ascites, extensive miliary disease in the lower abdomen and pelvis 2. Pain control: Dilaudid PCI 3. Nutrition: on PPN for now. 4. HTN/HLD: well controlled; hydralazine IV PRN 5. CAD: hx CABG. no acute issues 6. DM2: sl worse since surgery. monitor with ISS 7. Hypokalemia: 8. Hyponatremia: 9. Prophylaxis: heparin SQ, IV H2B History of Present Illness History of Present Illness pain in abd. forgets she has PCI Vitals Vitals Vital Signs Date Time Temp Pulse Resp B/P (MAP) Pulse Ox O2 Delivery O2 Flow Rate FiO2 09/26/16 11:00 97.7 106 18 145/61 (89) 99 Nasal Cannula 2.0 97.7 Physical Exam General: Alert, Oriented X3, Cooperative, No acute distress Heart: Regular rate, No murmurs Lungs: Clear, Other (no r/r/w) Abdomen: Soft, Other (dressing dry) Extremities: No clubbing, No cyanosis Skin: No rashes, No breakdown Labs LABS Laboratory Tests Test 09/25/16 17:35 09/25/16 20:38 09/26/16 06:05 09/26/16 11:16 Glucose (Fingerstick) 197 mg/dL (70-99) 223 mg/dL (70-99) 281 mg/dL (70-99) White Blood Count 7.3 x10^3/uL (4.0-11.0) Red Blood Count 4.48 x10^6/uL (3.50-5.40) Hemoglobin 14.3 g/dL (12.0-15.5) Hematocrit 42.9 % (36.0-47.0) Mean Corpuscular Volume 96 fL (79-100) Mean Corpuscular Hemoglobin 32 pg (25-35) Mean Corpuscular Hemoglobin Concent 33 g/dL (31-37) Red Cell Distribution Width 14.5 % (11.5-14.5) Platelet Count 356 x10^3/uL (140-400) Neutrophils (%) (Auto) 86 % (31-73) Lymphocytes (%) (Auto) 7 % (24-48) Monocytes (%) (Auto) 7 % (0-9) Eosinophils (%) (Auto) 0 % (0-3) Basophils (%) (Auto) 0 % (0-3) Neutrophils # (Auto) 6.2 x10^3uL (1.8-7.7) Lymphocytes # (Auto) 0.5 x10^3/uL (1.0-4.8) Monocytes # (Auto) 0.5 x10^3/uL (0.0-1.1) Eosinophils # (Auto) 0.0 x10^3/uL (0.0-0.7) Basophils # (Auto) 0.0 x10^3/uL (0.0-0.2) Segmented Neutrophils % 86 % (35-66) Lymphocytes % 9 % (24-48) Monocytes % 5 % (0-10) Platelet Estimate Adequate (ADEQUATE) LEMUEL RIVERA MD Sep 26, 2016 14:25
[2016-09-26] MEDS: IV NORMAL SALINE 1000ML BAG 1,000 ML IV SCH (14:46)
[2016-09-26] MEDS ORDERED: DEXTROSE 50% 25 GM / 50ML DISP.SYRIN. IV PRN (15:00)
[2016-09-26 15:34] VITALS: BP 151/72
[2016-09-26] MEDS: INSULIN ASPART 300 UNITS/3 ML INSULN.PEN SQ SCH (17:00)
[2016-09-26 19:38] VITALS: BP 130/62
[2016-09-26] MEDS: FAMOTIDINE 20 MG/2 ML VIAL IVP SCH (19:45)
--- NOTE | 2016-09-26 19:47 | RAD ---
CHEST AP ONLY History: PICC placement Comparison: October 25, 2003 Findings: There has been a median sternotomy. There is left port catheter with the tip near the cavoatrial junction. There is right upper extremity PICC with the tip in the region of the mid to inferior aspect of the superior vena cava. Cardiac silhouette is considered within normal limits given technique. There is no pneumothorax, dependent pleural fluid, or lobar infiltrate. Impression: 1. Right upper extremity PICC tip terminates in the superior vena cava. Electronically signed by: Tony Ramirez MD (09/26/2016 7:43 PM) [facility]
[2016-09-26 23:28] VITALS: BP 123/69
[2016-09-27] MEDS: AMINO AC 3%/ELECTROLYTE/GLYCER 1,000 ML IV SCH ×2 (00:53→13:53)
[2016-09-27 03:44] VITALS: BP 142/76
[2016-09-27 06:00] LABS: BASO % 0 % (0-3); EOS % 0 % (0-3); HEMATOCRIT 33.8 % (36.0-47.0); HEMOGLOBIN 11.9 g/dL (12.0-15.5); LYMPH # 0.9 x10^3/uL (1.0-4.8); LYMPH % 8 % (24-48); MEAN CORPUSCULAR HEMOGLOBIN 33 pg (25-35); MEAN CORPUSCULAR HGB CONC 35 g/dL (31-37); MEAN CORPUSCULAR VOLUME 93 fL (79-100); MONO % 11 % (0-9); NEUT % 81 % (31-73); PLATELET COUNT 296 x10^3/uL (140-400); RED BLOOD COUNT 3.63 x10^6/uL (3.50-5.40); RED CELL DISTRIBUTION WIDTH 14.2 % (11.5-14.5); WHITE BLOOD COUNT 10.8 x10^3/uL (4.0-11.0)
[2016-09-27 06:26] LABS: ALBUMIN 2.1 g/dL (3.4-5.0); ALBUMIN/GLOBULIN RATIO 0.5 (1.0-1.7); CALCIUM 8.1 mg/dL (8.5-10.1); CREATININE 0.9 mg/dL (0.6-1.0); GFR 73.9; POTASSIUM 4.6 mmol/L (3.5-5.1); TOTAL BILIRUBIN 0.4 mg/dL (0.2-1.0); TOTAL PROTEIN 6.5 g/dL (6.4-8.2)
[2016-09-27] MEDS: HEPARIN PF for SUB-Q USE 5,000 UNIT/0.5 ML VIAL. SQ SCH ×3 (06:28→21:33)
[2016-09-27 07:00] VITALS: BP 119/73
[2016-09-27] MEDS: INSULIN ASPART 300 UNITS/3 ML INSULN.PEN SQ SCH ×3 (08:00→16:53)
[2016-09-27] MEDS: FAMOTIDINE 20 MG/2 ML VIAL IVP SCH ×2 (09:19→21:32)
--- NOTE | 2016-09-27 09:59 | PDOC ---
SURGICAL PROGRESS NOTE Subjective Doing ok, has not passed flatus, no nausea Vital Signs Vital Signs Date Time Temp Pulse Resp B/P (MAP) Pulse Ox O2 Delivery O2 Flow Rate FiO2 09/27/16 03:44 98.1 101 18 142/76 (98) 97 Nasal Cannula 2.0 98.1 I&O Intake and Output 09/27/16 07:00 Intake Total 0 ml Output Total 1100 ml Balance -1100 ml Intake Oral 0 ml Output Urine Total 900 ml Gastric Drainage Total 100 ml Drainage Total 100 ml PATIENT HAS A FLORES: No General: Alert, Oriented X3, Cooperative, mild distress Lungs: Clear to auscultation, Normal air movement Abdomen: Soft, Other (mild incisional tenderness, g tube inplace) Labs Laboratory Tests Test 09/25/16 11:35 09/25/16 17:35 09/25/16 20:38 09/26/16 06:05 Glucose (Fingerstick) 159 mg/dL (70-99) 197 mg/dL (70-99) 223 mg/dL (70-99) White Blood Count 7.3 x10^3/uL (4.0-11.0) Red Blood Count 4.48 x10^6/uL (3.50-5.40) Hemoglobin 14.3 g/dL (12.0-15.5) Hematocrit 42.9 % (36.0-47.0) Mean Corpuscular Volume 96 fL (79-100) Mean Corpuscular Hemoglobin 32 pg (25-35) Mean Corpuscular Hemoglobin Concent 33 g/dL (31-37) Red Cell Distribution Width 14.5 % (11.5-14.5) Platelet Count 356 x10^3/uL (140-400) Neutrophils (%) (Auto) 86 % (31-73) Lymphocytes (%) (Auto) 7 % (24-48) Monocytes (%) (Auto) 7 % (0-9) Eosinophils (%) (Auto) 0 % (0-3) Basophils (%) (Auto) 0 % (0-3) Neutrophils # (Auto) 6.2 x10^3uL (1.8-7.7) Lymphocytes # (Auto) 0.5 x10^3/uL (1.0-4.8) Monocytes # (Auto) 0.5 x10^3/uL (0.0-1.1) Eosinophils # (Auto) 0.0 x10^3/uL (0.0-0.7) Basophils # (Auto) 0.0 x10^3/uL (0.0-0.2) Segmented Neutrophils % 86 % (35-66) Lymphocytes % 9 % (24-48) Monocytes % 5 % (0-10) Platelet Estimate Adequate (ADEQUATE) CA 125 Antigen 79.6 U/mL (0.0-38.1) Test 09/26/16 11:16 09/26/16 17:40 09/27/16 00:06 09/27/16 05:20 Glucose (Fingerstick) 281 mg/dL (70-99) 244 mg/dL (70-99) 225 mg/dL (70-99) White Blood Count 10.8 x10^3/uL (4.0-11.0) Red Blood Count 3.63 x10^6/uL (3.50-5.40) Hemoglobin 11.9 g/dL (12.0-15.5) Hematocrit 33.8 % (36.0-47.0) Mean Corpuscular Volume 93 fL (79-100) Mean Corpuscular Hemoglobin 33 pg (25-35) Mean Corpuscular Hemoglobin Concent 35 g/dL (31-37) Red Cell Distribution Width 14.2 % (11.5-14.5) Platelet Count 296 x10^3/uL (140-400) Neutrophils (%) (Auto) 81 % (31-73) Lymphocytes (%) (Auto) 8 % (24-48) Monocytes (%) (Auto) 11 % (0-9) Eosinophils (%) (Auto) 0 % (0-3) Basophils (%) (Auto) 0 % (0-3) Neutrophils # (Auto) 8.7 x10^3uL (1.8-7.7) Lymphocytes # (Auto) 0.9 x10^3/uL (1.0-4.8) Monocytes # (Auto) 1.2 x10^3/uL (0.0-1.1) Eosinophils # (Auto) 0.0 x10^3/uL (0.0-0.7) Basophils # (Auto) 0.0 x10^3/uL (0.0-0.2) Sodium Level 131 mmol/L (136-145) Potassium Level 4.6 mmol/L (3.5-5.1) Chloride Level 98 mmol/L (98-107) Carbon Dioxide Level 23 mmol/L (21-32) Anion Gap 10 (6-14) Blood Urea Nitrogen 20 mg/dL (7-20) Creatinine 0.9 mg/dL (0.6-1.0) Estimated GFR (Cockcroft-Gault) 73.9 BUN/Creatinine Ratio 22 (6-20) Glucose Level 216 mg/dL (70-99) Calcium Level 8.1 mg/dL (8.5-10.1) Magnesium Level 2.0 mg/dL (1.8-2.4) Total Bilirubin 0.4 mg/dL (0.2-1.0) Aspartate Amino Transf (AST/SGOT) 13 U/L (15-37) Alanine Aminotransferase (ALT/SGPT) 14 U/L (14-59) Alkaline Phosphatase 67 U/L (46-116) Total Protein 6.5 g/dL (6.4-8.2) Albumin 2.1 g/dL (3.4-5.0) Albumin/Globulin Ratio 0.5 (1.0-1.7) Test 09/27/16 06:09 09/27/16 07:47 Glucose (Fingerstick) 183 mg/dL (70-99) 223 mg/dL (70-99) Laboratory Tests Test 09/26/16 11:16 09/26/16 17:40 09/27/16 00:06 09/27/16 05:20 Glucose (Fingerstick) 281 mg/dL (70-99) 244 mg/dL (70-99) 225 mg/dL (70-99) White Blood Count 10.8 x10^3/uL (4.0-11.0) Red Blood Count 3.63 x10^6/uL (3.50-5.40) Hemoglobin 11.9 g/dL (12.0-15.5) Hematocrit 33.8 % (36.0-47.0) Mean Corpuscular Volume 93 fL (79-100) Mean Corpuscular Hemoglobin 33 pg (25-35) Mean Corpuscular Hemoglobin Concent 35 g/dL (31-37) Red Cell Distribution Width 14.2 % (11.5-14.5) Platelet Count 296 x10^3/uL (140-400) Neutrophils (%) (Auto) 81 % (31-73) Lymphocytes (%) (Auto) 8 % (24-48) Monocytes (%) (Auto) 11 % (0-9) Eosinophils (%) (Auto) 0 % (0-3) Basophils (%) (Auto) 0 % (0-3) Neutrophils # (Auto) 8.7 x10^3uL (1.8-7.7) Lymphocytes # (Auto) 0.9 x10^3/uL (1.0-4.8) Monocytes # (Auto) 1.2 x10^3/uL (0.0-1.1) Eosinophils # (Auto) 0.0 x10^3/uL (0.0-0.7) Basophils # (Auto) 0.0 x10^3/uL (0.0-0.2) Sodium Level 131 mmol/L (136-145) Potassium Level 4.6 mmol/L (3.5-5.1) Chloride Level 98 mmol/L (98-107) Carbon Dioxide Level 23 mmol/L (21-32) Anion Gap 10 (6-14) Blood Urea Nitrogen 20 mg/dL (7-20) Creatinine 0.9 mg/dL (0.6-1.0) Estimated GFR (Cockcroft-Gault) 73.9 BUN/Creatinine Ratio 22 (6-20) Glucose Level 216 mg/dL (70-99) Calcium Level 8.1 mg/dL (8.5-10.1) Magnesium Level 2.0 mg/dL (1.8-2.4) Total Bilirubin 0.4 mg/dL (0.2-1.0) Aspartate Amino Transf (AST/SGOT) 13 U/L (15-37) Alanine Aminotransferase (ALT/SGPT) 14 U/L (14-59) Alkaline Phosphatase 67 U/L (46-116) Total Protein 6.5 g/dL (6.4-8.2) Albumin 2.1 g/dL (3.4-5.0) Albumin/Globulin Ratio 0.5 (1.0-1.7) Test 09/27/16 06:09 09/27/16 07:47 Glucose (Fingerstick) 183 mg/dL (70-99) 223 mg/dL (70-99) Problem List Problems Medical Problems: (1) Abdominal pain Status: Acute (2) Nausea and vomiting Status: Acute Assessment/Plan S/P xlap with removal of abd wall tumor, g tube placement POD#2 Awaiting return of bowel function Supportive care Problems: ANDRE FENG MD Sep 27, 2016 09:58
[2016-09-27 11:00] VITALS: BP 141/72
--- NOTE | 2016-09-27 12:39 | PDOC ---
PROGRESS NOTES Chief Complaint Chief Complaint Abdominal pain ( recurrent SBO) ASSESSMENT AND PLAN: 1. SBO: s/p ex lap on 09/25: abdominal wall mass, consistent with metastatic adenocarcinoma, ascites; small bowel obstruction secondary to adhesion involving the lower abdominal incision/malignancy, ascites, extensive miliary disease in the lower abdomen and pelvis 2. Pain control: Dilaudid PCI 3. Nutrition: on PPN for now. 4. HTN/HLD: well controlled; hydralazine IV PRN 5. CAD: hx CABG. no acute issues 6. DM2: sl worse since surgery. monitor with ISS 7. Hypokalemia: 8. Hyponatremia: 9. Prophylaxis: heparin SQ, IV H2B History of Present Illness History of Present Illness pain in abd. forgets she has PCI Vitals Vitals Vital Signs Date Time Temp Pulse Resp B/P (MAP) Pulse Ox O2 Delivery O2 Flow Rate FiO2 09/27/16 11:00 97.9 93 18 141/72 (95) 99 Nasal Cannula 2.0 97.9 Physical Exam General: Alert, Oriented X3, Cooperative, mild distress Heart: Regular rate, No murmurs Lungs: Clear, Other (no r/r/w) Abdomen: Soft, Other Extremities: No clubbing, No cyanosis Skin: No rashes, No breakdown Labs LABS Laboratory Tests Test 09/26/16 17:40 09/27/16 00:06 09/27/16 05:20 09/27/16 06:09 Glucose (Fingerstick) 244 mg/dL (70-99) 225 mg/dL (70-99) 183 mg/dL (70-99) White Blood Count 10.8 x10^3/uL (4.0-11.0) Red Blood Count 3.63 x10^6/uL (3.50-5.40) Hemoglobin 11.9 g/dL (12.0-15.5) Hematocrit 33.8 % (36.0-47.0) Mean Corpuscular Volume 93 fL (79-100) Mean Corpuscular Hemoglobin 33 pg (25-35) Mean Corpuscular Hemoglobin Concent 35 g/dL (31-37) Red Cell Distribution Width 14.2 % (11.5-14.5) Platelet Count 296 x10^3/uL (140-400) Neutrophils (%) (Auto) 81 % (31-73) Lymphocytes (%) (Auto) 8 % (24-48) Monocytes (%) (Auto) 11 % (0-9) Eosinophils (%) (Auto) 0 % (0-3) Basophils (%) (Auto) 0 % (0-3) Neutrophils # (Auto) 8.7 x10^3uL (1.8-7.7) Lymphocytes # (Auto) 0.9 x10^3/uL (1.0-4.8) Monocytes # (Auto) 1.2 x10^3/uL (0.0-1.1) Eosinophils # (Auto) 0.0 x10^3/uL (0.0-0.7) Basophils # (Auto) 0.0 x10^3/uL (0.0-0.2) Sodium Level 131 mmol/L (136-145) Potassium Level 4.6 mmol/L (3.5-5.1) Chloride Level 98 mmol/L (98-107) Carbon Dioxide Level 23 mmol/L (21-32) Anion Gap 10 (6-14) Blood Urea Nitrogen 20 mg/dL (7-20) Creatinine 0.9 mg/dL (0.6-1.0) Estimated GFR (Cockcroft-Gault) 73.9 BUN/Creatinine Ratio 22 (6-20) Glucose Level 216 mg/dL (70-99) Calcium Level 8.1 mg/dL (8.5-10.1) Magnesium Level 2.0 mg/dL (1.8-2.4) Total Bilirubin 0.4 mg/dL (0.2-1.0) Aspartate Amino Transf (AST/SGOT) 13 U/L (15-37) Alanine Aminotransferase (ALT/SGPT) 14 U/L (14-59) Alkaline Phosphatase 67 U/L (46-116) Total Protein 6.5 g/dL (6.4-8.2) Albumin 2.1 g/dL (3.4-5.0) Albumin/Globulin Ratio 0.5 (1.0-1.7) Test 09/27/16 07:47 09/27/16 11:33 Glucose (Fingerstick) 223 mg/dL (70-99) 214 mg/dL (70-99) Review of Systems Review of Systems PO as able Assessment and Plan Assessmemt and Plan Problems Medical Problems: (1) Abdominal pain Status: Acute (2) Nausea and vomiting Status: Acute Problems: Comment Review of Relevant I have reviewed the following items anita (where applicable) has been applied. Labs Laboratory Tests Test 09/25/16 17:35 09/25/16 20:38 09/26/16 06:05 09/26/16 11:16 Glucose (Fingerstick) 197 mg/dL (70-99) 223 mg/dL (70-99) 281 mg/dL (70-99) White Blood Count 7.3 x10^3/uL (4.0-11.0) Red Blood Count 4.48 x10^6/uL (3.50-5.40) Hemoglobin 14.3 g/dL (12.0-15.5) Hematocrit 42.9 % (36.0-47.0) Mean Corpuscular Volume 96 fL (79-100) Mean Corpuscular Hemoglobin 32 pg (25-35) Mean Corpuscular Hemoglobin Concent 33 g/dL (31-37) Red Cell Distribution Width 14.5 % (11.5-14.5) Platelet Count 356 x10^3/uL (140-400) Neutrophils (%) (Auto) 86 % (31-73) Lymphocytes (%) (Auto) 7 % (24-48) Monocytes (%) (Auto) 7 % (0-9) Eosinophils (%) (Auto) 0 % (0-3) Basophils (%) (Auto) 0 % (0-3) Neutrophils # (Auto) 6.2 x10^3uL (1.8-7.7) Lymphocytes # (Auto) 0.5 x10^3/uL (1.0-4.8) Monocytes # (Auto) 0.5 x10^3/uL (0.0-1.1) Eosinophils # (Auto) 0.0 x10^3/uL (0.0-0.7) Basophils # (Auto) 0.0 x10^3/uL (0.0-0.2) Segmented Neutrophils % 86 % (35-66) Lymphocytes % 9 % (24-48) Monocytes % 5 % (0-10) Platelet Estimate Adequate (ADEQUATE) CA 125 Antigen 79.6 U/mL (0.0-38.1) Test 09/26/16 17:40 09/27/16 00:06 09/27/16 05:20 09/27/16 06:09 Glucose (Fingerstick) 244 mg/dL (70-99) 225 mg/dL (70-99) 183 mg/dL (70-99) White Blood Count 10.8 x10^3/uL (4.0-11.0) Red Blood Count 3.63 x10^6/uL (3.50-5.40) Hemoglobin 11.9 g/dL (12.0-15.5) Hematocrit 33.8 % (36.0-47.0) Mean Corpuscular Volume 93 fL (79-100) Mean Corpuscular Hemoglobin 33 pg (25-35) Mean Corpuscular Hemoglobin Concent 35 g/dL (31-37) Red Cell Distribution Width 14.2 % (11.5-14.5) Platelet Count 296 x10^3/uL (140-400) Neutrophils (%) (Auto) 81 % (31-73) Lymphocytes (%) (Auto) 8 % (24-48) Monocytes (%) (Auto) 11 % (0-9) Eosinophils (%) (Auto) 0 % (0-3) Basophils (%) (Auto) 0 % (0-3) Neutrophils # (Auto) 8.7 x10^3uL (1.8-7.7) Lymphocytes # (Auto) 0.9 x10^3/uL (1.0-4.8) Monocytes # (Auto) 1.2 x10^3/uL (0.0-1.1) Eosinophils # (Auto) 0.0 x10^3/uL (0.0-0.7) Basophils # (Auto) 0.0 x10^3/uL (0.0-0.2) Sodium Level 131 mmol/L (136-145) Potassium Level 4.6 mmol/L (3.5-5.1) Chloride Level 98 mmol/L (98-107) Carbon Dioxide Level 23 mmol/L (21-32) Anion Gap 10 (6-14) Blood Urea Nitrogen 20 mg/dL (7-20) Creatinine 0.9 mg/dL (0.6-1.0) Estimated GFR (Cockcroft-Gault) 73.9 BUN/Creatinine Ratio 22 (6-20) Glucose Level 216 mg/dL (70-99) Calcium Level 8.1 mg/dL (8.5-10.1) Magnesium Level 2.0 mg/dL (1.8-2.4) Total Bilirubin 0.4 mg/dL (0.2-1.0) Aspartate Amino Transf (AST/SGOT) 13 U/L (15-37) Alanine Aminotransferase (ALT/SGPT) 14 U/L (14-59) Alkaline Phosphatase 67 U/L (46-116) Total Protein 6.5 g/dL (6.4-8.2) Albumin 2.1 g/dL (3.4-5.0) Albumin/Globulin Ratio 0.5 (1.0-1.7) Test 09/27/16 07:47 09/27/16 11:33 Glucose (Fingerstick) 223 mg/dL (70-99) 214 mg/dL (70-99) Laboratory Tests Test 09/26/16 17:40 09/27/16 00:06 09/27/16 05:20 09/27/16 06:09 Glucose (Fingerstick) 244 mg/dL (70-99) 225 mg/dL (70-99) 183 mg/dL (70-99) White Blood Count 10.8 x10^3/uL (4.0-11.0) Red Blood Count 3.63 x10^6/uL (3.50-5.40) Hemoglobin 11.9 g/dL (12.0-15.5) Hematocrit 33.8 % (36.0-47.0) Mean Corpuscular Volume 93 fL (79-100) Mean Corpuscular Hemoglobin 33 pg (25-35) Mean Corpuscular Hemoglobin Concent 35 g/dL (31-37) Red Cell Distribution Width 14.2 % (11.5-14.5) Platelet Count 296 x10^3/uL (140-400) Neutrophils (%) (Auto) 81 % (31-73) Lymphocytes (%) (Auto) 8 % (24-48) Monocytes (%) (Auto) 11 % (0-9) Eosinophils (%) (Auto) 0 % (0-3) Basophils (%) (Auto) 0 % (0-3) Neutrophils # (Auto) 8.7 x10^3uL (1.8-7.7) Lymphocytes # (Auto) 0.9 x10^3/uL (1.0-4.8) Monocytes # (Auto) 1.2 x10^3/uL (0.0-1.1) Eosinophils # (Auto) 0.0 x10^3/uL (0.0-0.7) Basophils # (Auto) 0.0 x10^3/uL (0.0-0.2) Sodium Level 131 mmol/L (136-145) Potassium Level 4.6 mmol/L (3.5-5.1) Chloride Level 98 mmol/L (98-107) Carbon Dioxide Level 23 mmol/L (21-32) Anion Gap 10 (6-14) Blood Urea Nitrogen 20 mg/dL (7-20) Creatinine 0.9 mg/dL (0.6-1.0) Estimated GFR (Cockcroft-Gault) 73.9 BUN/Creatinine Ratio 22 (6-20) Glucose Level 216 mg/dL (70-99) Calcium Level 8.1 mg/dL (8.5-10.1) Magnesium Level 2.0 mg/dL (1.8-2.4) Total Bilirubin 0.4 mg/dL (0.2-1.0) Aspartate Amino Transf (AST/SGOT) 13 U/L (15-37) Alanine Aminotransferase (ALT/SGPT) 14 U/L (14-59) Alkaline Phosphatase 67 U/L (46-116) Total Protein 6.5 g/dL (6.4-8.2) Albumin 2.1 g/dL (3.4-5.0) Albumin/Globulin Ratio 0.5 (1.0-1.7) Test 09/27/16 07:47 09/27/16 11:33 Glucose (Fingerstick) 223 mg/dL (70-99) 214 mg/dL (70-99) Medications Current Medications Ondansetron HCl (Zofran) 4 mg PRN Q8HRS PRN IV NAUSEA/VOMITING Last administered on 09/19/16 02:59; Start 09/18/16 at 22:45; Stop 09/19/16 at 22:44 ; Status DC Fentanyl Citrate (Fentanyl 2ml Vial) 50 mcg PRN Q2HR PRN IV PAIN Last administered on 09/19/16 08:14; Start 09/18/16 at 22:45; Stop 09/19/16 at 22:44 ; Status DC Sodium Chloride 1,000 ml @ 125 mls/hr Q8H IV Last administered on 09/19/16 11 :01; Start 09/18/16 at 22:45; Stop 09/19/16 at 22:44; Status DC Hydralazine HCl (Apresoline) 10 mg PRN Q4HRS PRN IVP ELEVATED BP, SEE COMMENTS Last administered on 09/19/16 01:55; Start 09/19/16 at 01:45; Stop 09/19/16 at 12:24; Status DC Potassium Chloride 30 meq/ Sodium Chloride 1,015 ml @ 125 mls/hr 1X ONCE IV Last administered on 09/19/16 03:07; Start 09/19/16 at 01:45; Stop 09/19/16 at 09:52; Status DC Al Hydroxide/Mg Hydroxide (Mylanta Plus Xs) 15 ml 1X ONCE PO Last administered on 09/19/16 05:50; Start 09/19/16 at 06:00; Stop 09/19/16 at 06:01 ; Status DC Famotidine (Pepcid) 20 mg BID IVP Last administered on 09/24/16 09:01; Start 09/19/16 at 09:00; Stop 09/24/16 at 13:12; Status DC Acetaminophen (Tylenol) 650 mg PRN Q6HRS PRN PO FEVER Last administered on 09/25 08:43; Start 09/19/16 at 09:30; Stop 09/26/16 at 14:20; Status DC Ondansetron HCl (Zofran) 4 mg PRN Q6HRS PRN IV NAUSEA/VOMITING Last administered on 09/25/16 05:35; Start 09/19/16 at 09:30; Stop 09/27/16 at 12:26 ; Status DC Morphine Sulfate 2 mg PRN Q2HR PRN IV PAIN; Start 09/19/16 at 09:30; Stop 09/19 at 09:56; Status DC Tramadol HCl (Ultram) 50 mg PRN Q6HRS PRN PO PAIN Last administered on 09:49; Start 09/19/16 at 09:30; Stop 09/26/16 at 14:20; Status DC Hydralazine HCl (Apresoline) 10 mg PRN Q4HRS PRN IVP ELEVATED BP, SEE COMMENTS Last administered on 09/25/16 17:24; Start 09/19/16 at 09:30 Docusate Sodium (Colace) 100 mg PRN DAILY PRN PO CONSTIPATION Last administered on 09/25/16 08:43; Start 09/19/16 at 09:30; Stop 09/26/16 at 14:20 ; Status DC Barium Sulfate (Liquid E-Z Paque) 355 ml 1X ONCE PO ; Start 09/19/16 at 10:00; Stop 09/19/16 at 10:01; Status DC Barium Sulfate (Liquid E-Z Paque) 355 ml 1X ONCE PO ; Start 09/19/16 at 10:00; Stop 09/19/16 at 10:01; Status DC Morphine Sulfate 2 mg PRN Q2HR PRN IV PAIN Last administered on 09/24/16 09:09 ; Start 09/19/16 at 10:00; Stop 09/24/16 at 13:12; Status DC Throat Lozenges (Chloraseptic) 1 spray PRN Q2HR PRN PO SORE THROAT Last administered on 09/19/16 11:01; Start 09/19/16 at 10:15 Potassium Chloride/Sodium Chloride 1,000 ml @ 100 mls/hr Q10H IV Last administered on 09/20/16 01:57; Start 09/19/16 at 12:30; Stop 09/20/16 at 08:19 ; Status DC Heparin Sodium (Porcine) (Heparin Sq) 5,000 unit Q8HRS SQ Last administered on 09/27/16 06:28; Start 09/19/16 at 14:00 Amino Acids/ Glycerin/ Electrolytes 1,000 ml @ 75 mls/hr [id number] IV Last administered on 09/27/16 00:53; Start 09/20/16 at 08:30 Dextrose (Dextrose 50%-Water Syringe) 25 gm PRN Q15MIN PRN IV SEE COMMENTS Last administered on 09/20/16 11:52; Start 09/20/16 at 11:45 Iohexol (Omnipaque 350 Mg/ml) 400 ml 1X ONCE PO Last administered on 8/12/ 17at 12:37; Start 09/20/16 at 12:15; Stop 09/20/16 at 12:16; Status DC Levofloxacin/ Dextrose 100 ml @ 100 mls/hr 1X PREOP PRN IV PRIOR TO PROCEDURE ; Start 09/21/16 at 17:30; Stop 09/22/16 at 18:00; Status DC Ondansetron HCl (Zofran) 4 mg PRN Q6HRS PRN IV NAUSEA/VOMITING; Start 09/22/16 at 07:45; Stop 09/23/16 at 07:44; Status DC Fentanyl Citrate (Fentanyl 2ml Vial) 25 mcg PRN Q5MIN PRN IV MILD PAIN; Start 09/22/16 at 07:45; Stop 09/23/16 at 07:44; Status DC Fentanyl Citrate (Fentanyl 2ml Vial) 50 mcg PRN Q5MIN PRN IV MODERATE PAIN; Start 09/22/16 at 07:45; Stop 09/23/16 at 07:44; Status DC Morphine Sulfate 1 mg PRN Q10MIN PRN IV SEVERE PAIN; Start 09/22/16 at 07:45; Stop 09/23/16 at 07:44; Status DC Ringer's Solution 1,000 ml @ 30 mls/hr Q24H IV ; Start 09/22/16 at 07:45; Stop 09/22/16 at 19:44; Status DC Lidocaine HCl 2 ml PRN 1X PRN ID PRIOR TO IV START; Start 09/22/16 at 07:45; Stop 09/23/16 at 07:44; Status DC Hydromorphone HCl (Dilaudid) 0.5 mg PRN Q10MIN PRN IV SEV PAIN, Second choice; Start 09/22/16 at 07:45; Stop 09/23/16 at 07:44; Status DC Prochlorperazine Edisylate (Compazine) 5 mg PACU PRN PRN IV NAUSEA, MRX1; Start 09/22/16 at 07:45; Stop 09/23/16 at 07:44; Status DC Lorazepam (Ativan) 0.5 mg 1X ONCE IV Last administered on 09/22/16 12:08; Start 09/22/16 at 12:00; Stop 09/22/16 at 12:03; Status DC Pantoprazole Sodium (Protonix) 40 mg DAILYAC PO Last administered on 09/25/16 08:43; Start 09/24/16 at 13:15; Stop 09/26/16 at 14:20; Status DC Levofloxacin/ Dextrose 100 ml @ 100 mls/hr 1X PREOP ONCE IV Last administered on 09/25/16 13:32; Start 09/25/16 at 13:30; Stop 09/25/16 at 14:29 ; Status DC Sevoflurane (Ultane) 60 ml STK-MED ONCE IH ; Start 09/25/16 at 13:40; Stop 09/25 at 13:53; Status DC Fentanyl Citrate (Fentanyl 2ml Vial) 100 mcg STK-MED ONCE .ROUTE ; Start at 13:41; Stop 09/25/16 at 13:53; Status DC Glycopyrrolate (Robinul) 1 mg STK-MED ONCE .ROUTE ; Start 09/25/16 at 13:41; Stop 09/25/16 at 13:53; Status DC Propofol 20 ml @ As Directed STK-MED ONCE IV ; Start 09/25/16 at 13:41; Stop at 13:53; Status DC Ondansetron HCl (Zofran) 4 mg STK-MED ONCE .ROUTE ; Start 09/25/16 at 13:42; Stop 09/25/16 at 13:53; Status DC Dexamethasone Sodium Phosphate (Decadron) 20 mg STK-MED ONCE .ROUTE ; Start at 13:42; Stop 09/25/16 at 13:53; Status DC Lidocaine HCl (Lidocaine Pf 2% Vial) 5 ml STK-MED ONCE .ROUTE ; Start 09/25/16 at 13:42; Stop 09/25/16 at 13:53; Status DC Ondansetron HCl (Zofran) 4 mg PRN Q6HRS PRN IV NAUSEA/VOMITING; Start 09/25/16 at 14:00; Stop 09/26/16 at 13:59; Status DC Fentanyl Citrate (Fentanyl 2ml Vial) 25 mcg PRN Q5MIN PRN IV MILD PAIN; Start 09/25/16 at 14:00; Stop 09/26/16 at 13:59; Status DC Fentanyl Citrate (Fentanyl 2ml Vial) 50 mcg PRN Q5MIN PRN IV MODERATE PAIN Last administered on 8/17/17at 17:31; Start 09/25/16 at 14:00; Stop 09/26/16 at 13:59; Status DC Morphine Sulfate 1 mg PRN Q10MIN PRN IV SEVERE PAIN; Start 09/25/16 at 14:00; Stop 09/26/16 at 13:59; Status DC Ringer's Solution 1,000 ml @ 0 mls/hr Q0M IV ; Start 09/25/16 at 13:53; Stop at 01:52; Status DC Lidocaine HCl 2 ml PRN 1X PRN ID PRIOR TO IV START; Start 09/25/16 at 14:00; Stop 09/26/16 at 13:59; Status DC Hydromorphone HCl (Dilaudid) 0.5 mg PRN Q10MIN PRN IV SEV PAIN, Second choice; Start 09/25/16 at 14:00; Stop 09/26/16 at 13:59; Status DC Prochlorperazine Edisylate (Compazine) 5 mg PACU PRN PRN IV NAUSEA, MRX1; Start 09/25/16 at 14:00; Stop 09/26/16 at 13:59; Status DC Fentanyl Citrate (Fentanyl 2ml Vial) 100 mcg STK-MED ONCE .ROUTE ; Start at 14:08; Stop 09/25/16 at 14:09; Status DC Ringer's Solution 1,000 ml @ 125 mls/hr Q8H IV ; Start 09/25/16 at 14:09; Stop 09/26/16 at 02:08; Status DC Fentanyl Citrate (Fentanyl 2ml Vial) 50 mcg PRN Q5MIN PRN IV pain Last administered on 09/25/16t 14:15; Start 09/25/16 at 14:15; Stop 09/26/16 at 14:20 ; Status DC Succinylcholine Chloride (Anectine) 200 mg STK-MED ONCE .ROUTE ; Start 09/25/16 at 14:20; Stop 09/25/16 at 14:21; Status DC Fentanyl Citrate (Fentanyl 2ml Vial) 100 mcg STK-MED ONCE .ROUTE ; Start at 14:54; Stop 09/25/16 at 14:55; Status DC Enoxaparin Sodium (Lovenox 40mg Syringe) 40 mg Q24H SQ ; Start 09/25/16 at 18:00 ; Stop 09/26/16 at 11:03; Status DC Sodium Chloride (Normal Saline Flush) 3 ml QSHIFT PRN IV AFTER MEDS AND BLOOD DRAWS; Start 09/25/16 at 16:30 Ringer's Solution 1,000 ml @ 100 mls/hr Q10H IV ; Start 09/25/16 at 16:25; Stop 09/25/16 at 23:51; Status DC Naloxone HCl (Narcan) 0.4 mg PRN Q2MIN PRN IV SEE INSTRUCTIONS; Start 09/25/16 at 16:30 Sodium Chloride 1,000 ml @ 25 mls/hr Q24H IV Last administered on 09/26/16 14 :46; Start 09/25/16 at 16:25 Hydromorphone HCl 30 ml @ 0 mls/hr CONT PRN PRN IV PROTOCOL Last administered on 09/25/16 16:51; Start 09/25/16 at 16:30 Ondansetron HCl (Zofran) 4 mg PRN Q6HRS PRN IV NAUESA, 1ST CHOICE; Start at 16:30 Fentanyl Citrate (Fentanyl 2ml Vial) 100 mcg STK-MED ONCE .ROUTE ; Start at 17:14; Stop 09/25/16 at 17:15; Status DC Acetaminophen (Tylenol) 325 mg PRN Q6HRS PRN MD fever >100.4; Start 09/26/16 at 14:30 Bisacodyl (Dulcolax Supp) 10 mg PRN DAILY PRN MD CONSTIPATION; Start 09/26/16 at 14:30 Famotidine (Pepcid) 20 mg BID IVP Last administered on 09/27/16 09:19; Start 09/26/16 at 21:00 Insulin Aspart (NovoLOG) 0-5 UNITS TIDWMEALS SQ ; Start 09/26/16 at 17:00 Dextrose (Dextrose 50%-Water Syringe) 12.5 gm PRN Q15MIN PRN IV SEE COMMENTS; Start 09/26/16 at 15:00 Active Scripts Active Senna S Tablet (Sennosides/Docusate Sodium) 1 Each Tablet 1 Each PO DAILY Reported Lexapro (Escitalopram Oxalate) 20 Mg Tablet 1 Tab PO DAILY Lisinopril-Hctz 20-12.5 Mg Tab (Lisinopril/Hydrochlorothiazide) 1 Each Tablet 1 Tab PO DAILY Lipitor (Atorvastatin Calcium) 20 Mg Tablet 20 Mg PO HS Ambien (Zolpidem Tartrate) 5 Mg Tablet 1 Tab PO QHS Lyrica (Pregabalin) 150 Mg Capsule 150 Mg PO BID 30 Days Buspirone Hcl 10 Mg Tablet 10 Mg PO BID Aspir 81 (Aspirin) 81 Mg Tablet. 1 Tab PO DAILY Vitals/I & O Vital Sign - Last 24 Hours 09/26/16 09/26/16 09/26/16 09/26/16 15:34 19:38 19:54 23:28 Temp 98.0 99.1 98.1 98.0 99.1 98.1 Pulse 111 107 97 Resp 18 18 18 B/P (MAP) 151/72 (98) 130/62 (84) 123/69 (87) Pulse Ox 97 99 97 O2 Delivery Nasal Cannula Room Air Room Air Room Air O2 Flow Rate 2.0 09/27/16 09/27/16 09/27/16 09/27/16 03:44 07:00 08:00 08:00 Temp 98.1 97.7 98.1 97.7 Pulse 101 91 Resp 18 18 14 B/P (MAP) 142/76 (98) 119/73 (88) Pulse Ox 97 98 98 O2 Delivery Nasal Cannula Nasal Cannula Nasal Cannula Nasal Cannula O2 Flow Rate 2.0 2.0 2.0 2.0 09/27/16 11:00 Temp 97.9 97.9 Pulse 93 Resp 18 B/P (MAP) 141/72 (95) Pulse Ox 99 O2 Delivery Nasal Cannula O2 Flow Rate 2.0 Intake and Output 09/26/16 09/26/16 09/27/16 15:00 23:00 07:00 Intake Total 0 ml Output Total 500 ml 600 ml Balance -500 ml -600 ml KENIA GIFFORD MD Sep 27, 2016 12:39
[2016-09-27 15:00] VITALS: BP 127/74
[2016-09-27] MEDS: IV NORMAL SALINE 1000ML BAG 1,000 ML IV SCH (16:36)
[2016-09-27 19:00] VITALS: BP 109/68
[2016-09-27 23:00] VITALS: BP 124/72
[2016-09-28] MEDS: AMINO AC 3%/ELECTROLYTE/GLYCER 1,000 ML IV SCH ×2 (01:09→16:01)
[2016-09-28 03:00] VITALS: BP 130/69
[2016-09-28] MEDS: HEPARIN PF for SUB-Q USE 5,000 UNIT/0.5 ML VIAL. SQ SCH ×3 (06:17→22:05)
[2016-09-28 06:57] LABS: BASO % 0 % (0-3); EOS % 0 % (0-3); HEMATOCRIT 31.5 % (36.0-47.0); HEMOGLOBIN 10.5 g/dL (12.0-15.5); LYMPH % 8 % (24-48); MEAN CORPUSCULAR HEMOGLOBIN 32 pg (25-35); MEAN CORPUSCULAR HGB CONC 33 g/dL (31-37); MEAN CORPUSCULAR VOLUME 95 fL (79-100); MONO % 9 % (0-9); NEUT % 83 % (31-73); PLATELET COUNT 234 x10^3/uL (140-400); RED BLOOD COUNT 3.33 x10^6/uL (3.50-5.40); RED CELL DISTRIBUTION WIDTH 14.6 % (11.5-14.5); WHITE BLOOD COUNT 12.9 x10^3/uL (4.0-11.0)
[2016-09-28 07:00] VITALS: BP 109/68
[2016-09-28 07:17] LABS: ALBUMIN 1.8 g/dL (3.4-5.0); ALBUMIN/GLOBULIN RATIO 0.4 (1.0-1.7); CALCIUM 8.4 mg/dL (8.5-10.1); CREATININE 0.7 mg/dL (0.6-1.0); GFR 98.7; MAGNESIUM 2.2 mg/dL (1.8-2.4); POTASSIUM 4.7 mmol/L (3.5-5.1); TOTAL BILIRUBIN 0.4 mg/dL (0.2-1.0); TOTAL PROTEIN 6.6 g/dL (6.4-8.2)
[2016-09-28] MEDS: ONDANSETRON PF 4 MG/2 ML VIAL. IV PRN (07:20)
[2016-09-28] MEDS: FAMOTIDINE 20 MG/2 ML VIAL IVP SCH ×2 (07:20→22:01)
[2016-09-28] MEDS: INSULIN ASPART 300 UNITS/3 ML INSULN.PEN SQ SCH ×3 (08:00→16:50)
[2016-09-28 11:00] VITALS: BP 119/67
--- NOTE | 2016-09-28 11:41 | PDOC ---
SURGICAL PROGRESS NOTE Subjective Patient resting comfortably, easily aroused, denies pain. Vital Signs Vital Signs Date Time Temp Pulse Resp B/P (MAP) Pulse Ox O2 Delivery O2 Flow Rate FiO2 09/28/16 08:00 Nasal Cannula 2.0 09/28/16 03:00 97.9 84 18 130/69 (89) 100 97.9 I&O Intake and Output 09/28/16 07:00 Intake Total 3240.5 ml Output Total 1400 ml Balance 1840.5 ml Intake Oral 0 ml IV Total 3240.5 ml Output Urine Total 1150 ml Gastric Drainage Total 250 ml PATIENT HAS A FLORES: No General: Alert, Oriented X3, Cooperative, mild distress Abdomen: Soft, No tenderness, Other (hypoactive BS) Extremities: No edema Labs Laboratory Tests Test 09/26/16 17:40 09/27/16 00:06 09/27/16 05:20 09/27/16 06:09 Glucose (Fingerstick) 244 mg/dL (70-99) 225 mg/dL (70-99) 183 mg/dL (70-99) White Blood Count 10.8 x10^3/uL (4.0-11.0) Red Blood Count 3.63 x10^6/uL (3.50-5.40) Hemoglobin 11.9 g/dL (12.0-15.5) Hematocrit 33.8 % (36.0-47.0) Mean Corpuscular Volume 93 fL (79-100) Mean Corpuscular Hemoglobin 33 pg (25-35) Mean Corpuscular Hemoglobin Concent 35 g/dL (31-37) Red Cell Distribution Width 14.2 % (11.5-14.5) Platelet Count 296 x10^3/uL (140-400) Neutrophils (%) (Auto) 81 % (31-73) Lymphocytes (%) (Auto) 8 % (24-48) Monocytes (%) (Auto) 11 % (0-9) Eosinophils (%) (Auto) 0 % (0-3) Basophils (%) (Auto) 0 % (0-3) Neutrophils # (Auto) 8.7 x10^3uL (1.8-7.7) Lymphocytes # (Auto) 0.9 x10^3/uL (1.0-4.8) Monocytes # (Auto) 1.2 x10^3/uL (0.0-1.1) Eosinophils # (Auto) 0.0 x10^3/uL (0.0-0.7) Basophils # (Auto) 0.0 x10^3/uL (0.0-0.2) Sodium Level 131 mmol/L (136-145) Potassium Level 4.6 mmol/L (3.5-5.1) Chloride Level 98 mmol/L (98-107) Carbon Dioxide Level 23 mmol/L (21-32) Anion Gap 10 (6-14) Blood Urea Nitrogen 20 mg/dL (7-20) Creatinine 0.9 mg/dL (0.6-1.0) Estimated GFR (Cockcroft-Gault) 73.9 BUN/Creatinine Ratio 22 (6-20) Glucose Level 216 mg/dL (70-99) Calcium Level 8.1 mg/dL (8.5-10.1) Magnesium Level 2.0 mg/dL (1.8-2.4) Total Bilirubin 0.4 mg/dL (0.2-1.0) Aspartate Amino Transf (AST/SGOT) 13 U/L (15-37) Alanine Aminotransferase (ALT/SGPT) 14 U/L (14-59) Alkaline Phosphatase 67 U/L (46-116) Total Protein 6.5 g/dL (6.4-8.2) Albumin 2.1 g/dL (3.4-5.0) Albumin/Globulin Ratio 0.5 (1.0-1.7) Test 09/27/16 07:47 09/27/16 11:33 09/27/16 16:51 09/27/16 20:54 Glucose (Fingerstick) 223 mg/dL (70-99) 214 mg/dL (70-99) 179 mg/dL (70-99) 196 mg/dL (70-99) Test 09/28/16 06:40 09/28/16 07:27 White Blood Count 12.9 x10^3/uL (4.0-11.0) Red Blood Count 3.33 x10^6/uL (3.50-5.40) Hemoglobin 10.5 g/dL (12.0-15.5) Hematocrit 31.5 % (36.0-47.0) Mean Corpuscular Volume 95 fL (79-100) Mean Corpuscular Hemoglobin 32 pg (25-35) Mean Corpuscular Hemoglobin Concent 33 g/dL (31-37) Red Cell Distribution Width 14.6 % (11.5-14.5) Platelet Count 234 x10^3/uL (140-400) Neutrophils (%) (Auto) 83 % (31-73) Lymphocytes (%) (Auto) 8 % (24-48) Monocytes (%) (Auto) 9 % (0-9) Eosinophils (%) (Auto) 0 % (0-3) Basophils (%) (Auto) 0 % (0-3) Neutrophils # (Auto) 10.7 x10^3uL (1.8-7.7) Lymphocytes # (Auto) 1.0 x10^3/uL (1.0-4.8) Monocytes # (Auto) 1.1 x10^3/uL (0.0-1.1) Eosinophils # (Auto) 0.0 x10^3/uL (0.0-0.7) Basophils # (Auto) 0.0 x10^3/uL (0.0-0.2) Sodium Level 131 mmol/L (136-145) Potassium Level 4.7 mmol/L (3.5-5.1) Chloride Level 98 mmol/L (98-107) Carbon Dioxide Level 26 mmol/L (21-32) Anion Gap 7 (6-14) Blood Urea Nitrogen 18 mg/dL (7-20) Creatinine 0.7 mg/dL (0.6-1.0) Estimated GFR (Cockcroft-Gault) 98.7 BUN/Creatinine Ratio 26 (6-20) Glucose Level 184 mg/dL (70-99) Calcium Level 8.4 mg/dL (8.5-10.1) Magnesium Level 2.2 mg/dL (1.8-2.4) Total Bilirubin 0.4 mg/dL (0.2-1.0) Aspartate Amino Transf (AST/SGOT) 18 U/L (15-37) Alanine Aminotransferase (ALT/SGPT) 16 U/L (14-59) Alkaline Phosphatase 75 U/L (46-116) Total Protein 6.6 g/dL (6.4-8.2) Albumin 1.8 g/dL (3.4-5.0) Albumin/Globulin Ratio 0.4 (1.0-1.7) Glucose (Fingerstick) 175 mg/dL (70-99) Laboratory Tests Test 09/27/16 16:51 09/27/16 20:54 09/28/16 06:40 09/28/16 07:27 Glucose (Fingerstick) 179 mg/dL (70-99) 196 mg/dL (70-99) 175 mg/dL (70-99) White Blood Count 12.9 x10^3/uL (4.0-11.0) Red Blood Count 3.33 x10^6/uL (3.50-5.40) Hemoglobin 10.5 g/dL (12.0-15.5) Hematocrit 31.5 % (36.0-47.0) Mean Corpuscular Volume 95 fL (79-100) Mean Corpuscular Hemoglobin 32 pg (25-35) Mean Corpuscular Hemoglobin Concent 33 g/dL (31-37) Red Cell Distribution Width 14.6 % (11.5-14.5) Platelet Count 234 x10^3/uL (140-400) Neutrophils (%) (Auto) 83 % (31-73) Lymphocytes (%) (Auto) 8 % (24-48) Monocytes (%) (Auto) 9 % (0-9) Eosinophils (%) (Auto) 0 % (0-3) Basophils (%) (Auto) 0 % (0-3) Neutrophils # (Auto) 10.7 x10^3uL (1.8-7.7) Lymphocytes # (Auto) 1.0 x10^3/uL (1.0-4.8) Monocytes # (Auto) 1.1 x10^3/uL (0.0-1.1) Eosinophils # (Auto) 0.0 x10^3/uL (0.0-0.7) Basophils # (Auto) 0.0 x10^3/uL (0.0-0.2) Sodium Level 131 mmol/L (136-145) Potassium Level 4.7 mmol/L (3.5-5.1) Chloride Level 98 mmol/L (98-107) Carbon Dioxide Level 26 mmol/L (21-32) Anion Gap 7 (6-14) Blood Urea Nitrogen 18 mg/dL (7-20) Creatinine 0.7 mg/dL (0.6-1.0) Estimated GFR (Cockcroft-Gault) 98.7 BUN/Creatinine Ratio 26 (6-20) Glucose Level 184 mg/dL (70-99) Calcium Level 8.4 mg/dL (8.5-10.1) Magnesium Level 2.2 mg/dL (1.8-2.4) Total Bilirubin 0.4 mg/dL (0.2-1.0) Aspartate Amino Transf (AST/SGOT) 18 U/L (15-37) Alanine Aminotransferase (ALT/SGPT) 16 U/L (14-59) Alkaline Phosphatase 75 U/L (46-116) Total Protein 6.6 g/dL (6.4-8.2) Albumin 1.8 g/dL (3.4-5.0) Albumin/Globulin Ratio 0.4 (1.0-1.7) Problem List Problems Medical Problems: (1) Abdominal pain Status: Acute (2) Nausea and vomiting Status: Acute Assessment/Plan S/P xlap for abdominal wall mass and sbo Awaiting return of bowel function. Problems: ANDRE FENG MD Sep 28, 2016 11:41
--- NOTE | 2016-09-28 13:52 | PDOC ---
PROGRESS NOTES Chief Complaint Chief Complaint Abdominal pain, recurrent SBO ASSESSMENT AND PLAN: 1. SBO: s/p ex lap on 09/25: abdominal wall mass, metastatic adenocarcinoma , ascites; small bowel obstruction secondary to adhesion involving the lower abdominal incision/malignancy, ascites, extensive miliary disease in the lower abdomen and pelvis 2. Pain control: Dilaudid PCI, to continue, pain persists, 3. Nutrition: on PPN for now. no flatus, cont NPO 4. HTN/HLD: well controlled; hydralazine IV PRN 5. CAD: hx CABG. stable 6. DM2: sl worse since surgery. monitor with ISS 7. Hypokalemia: 8. Hyponatremia: 9. Prophylaxis: heparin SQ, IV H2B History of Present Illness History of Present Illness pain in abd. forgets she has PCI Vitals Vitals Vital Signs Date Time Temp Pulse Resp B/P (MAP) Pulse Ox O2 Delivery O2 Flow Rate FiO2 09/28/16 12:00 19 Nasal Cannula 2.0 09/28/16 11:00 97.9 87 119/67 (84) 100 97.9 Physical Exam General: Alert, Oriented X3, Cooperative, mild distress Heart: Regular rate, No murmurs Lungs: Clear, Other (no r/r/w) Abdomen: Soft, No tenderness, Other (hypoactive BS) Extremities: No edema Skin: No rashes, No breakdown Labs LABS Laboratory Tests Test 09/27/16 16:51 09/27/16 20:54 09/28/16 06:40 09/28/16 07:27 Glucose (Fingerstick) 179 mg/dL (70-99) 196 mg/dL (70-99) 175 mg/dL (70-99) White Blood Count 12.9 x10^3/uL (4.0-11.0) Red Blood Count 3.33 x10^6/uL (3.50-5.40) Hemoglobin 10.5 g/dL (12.0-15.5) Hematocrit 31.5 % (36.0-47.0) Mean Corpuscular Volume 95 fL (79-100) Mean Corpuscular Hemoglobin 32 pg (25-35) Mean Corpuscular Hemoglobin Concent 33 g/dL (31-37) Red Cell Distribution Width 14.6 % (11.5-14.5) Platelet Count 234 x10^3/uL (140-400) Neutrophils (%) (Auto) 83 % (31-73) Lymphocytes (%) (Auto) 8 % (24-48) Monocytes (%) (Auto) 9 % (0-9) Eosinophils (%) (Auto) 0 % (0-3) Basophils (%) (Auto) 0 % (0-3) Neutrophils # (Auto) 10.7 x10^3uL (1.8-7.7) Lymphocytes # (Auto) 1.0 x10^3/uL (1.0-4.8) Monocytes # (Auto) 1.1 x10^3/uL (0.0-1.1) Eosinophils # (Auto) 0.0 x10^3/uL (0.0-0.7) Basophils # (Auto) 0.0 x10^3/uL (0.0-0.2) Sodium Level 131 mmol/L (136-145) Potassium Level 4.7 mmol/L (3.5-5.1) Chloride Level 98 mmol/L (98-107) Carbon Dioxide Level 26 mmol/L (21-32) Anion Gap 7 (6-14) Blood Urea Nitrogen 18 mg/dL (7-20) Creatinine 0.7 mg/dL (0.6-1.0) Estimated GFR (Cockcroft-Gault) 98.7 BUN/Creatinine Ratio 26 (6-20) Glucose Level 184 mg/dL (70-99) Calcium Level 8.4 mg/dL (8.5-10.1) Magnesium Level 2.2 mg/dL (1.8-2.4) Total Bilirubin 0.4 mg/dL (0.2-1.0) Aspartate Amino Transf (AST/SGOT) 18 U/L (15-37) Alanine Aminotransferase (ALT/SGPT) 16 U/L (14-59) Alkaline Phosphatase 75 U/L (46-116) Total Protein 6.6 g/dL (6.4-8.2) Albumin 1.8 g/dL (3.4-5.0) Albumin/Globulin Ratio 0.4 (1.0-1.7) Test 09/28/16 11:18 Glucose (Fingerstick) 159 mg/dL (70-99) Review of Systems Review of Systems no nv.d Assessment and Plan Assessmemt and Plan Problems Medical Problems: (1) Abdominal pain Status: Acute (2) Nausea and vomiting Status: Acute Problems: Comment Review of Relevant I have reviewed the following items anita (where applicable) has been applied. Labs Laboratory Tests Test 09/26/16 17:40 09/27/16 00:06 09/27/16 05:20 09/27/16 06:09 Glucose (Fingerstick) 244 mg/dL (70-99) 225 mg/dL (70-99) 183 mg/dL (70-99) White Blood Count 10.8 x10^3/uL (4.0-11.0) Red Blood Count 3.63 x10^6/uL (3.50-5.40) Hemoglobin 11.9 g/dL (12.0-15.5) Hematocrit 33.8 % (36.0-47.0) Mean Corpuscular Volume 93 fL (79-100) Mean Corpuscular Hemoglobin 33 pg (25-35) Mean Corpuscular Hemoglobin Concent 35 g/dL (31-37) Red Cell Distribution Width 14.2 % (11.5-14.5) Platelet Count 296 x10^3/uL (140-400) Neutrophils (%) (Auto) 81 % (31-73) Lymphocytes (%) (Auto) 8 % (24-48) Monocytes (%) (Auto) 11 % (0-9) Eosinophils (%) (Auto) 0 % (0-3) Basophils (%) (Auto) 0 % (0-3) Neutrophils # (Auto) 8.7 x10^3uL (1.8-7.7) Lymphocytes # (Auto) 0.9 x10^3/uL (1.0-4.8) Monocytes # (Auto) 1.2 x10^3/uL (0.0-1.1) Eosinophils # (Auto) 0.0 x10^3/uL (0.0-0.7) Basophils # (Auto) 0.0 x10^3/uL (0.0-0.2) Sodium Level 131 mmol/L (136-145) Potassium Level 4.6 mmol/L (3.5-5.1) Chloride Level 98 mmol/L (98-107) Carbon Dioxide Level 23 mmol/L (21-32) Anion Gap 10 (6-14) Blood Urea Nitrogen 20 mg/dL (7-20) Creatinine 0.9 mg/dL (0.6-1.0) Estimated GFR (Cockcroft-Gault) 73.9 BUN/Creatinine Ratio 22 (6-20) Glucose Level 216 mg/dL (70-99) Calcium Level 8.1 mg/dL (8.5-10.1) Magnesium Level 2.0 mg/dL (1.8-2.4) Total Bilirubin 0.4 mg/dL (0.2-1.0) Aspartate Amino Transf (AST/SGOT) 13 U/L (15-37) Alanine Aminotransferase (ALT/SGPT) 14 U/L (14-59) Alkaline Phosphatase 67 U/L (46-116) Total Protein 6.5 g/dL (6.4-8.2) Albumin 2.1 g/dL (3.4-5.0) Albumin/Globulin Ratio 0.5 (1.0-1.7) Test 09/27/16 07:47 09/27/16 11:33 09/27/16 16:51 09/27/16 20:54 Glucose (Fingerstick) 223 mg/dL (70-99) 214 mg/dL (70-99) 179 mg/dL (70-99) 196 mg/dL (70-99) Test 09/28/16 06:40 09/28/16 07:27 09/28/16 11:18 White Blood Count 12.9 x10^3/uL (4.0-11.0) Red Blood Count 3.33 x10^6/uL (3.50-5.40) Hemoglobin 10.5 g/dL (12.0-15.5) Hematocrit 31.5 % (36.0-47.0) Mean Corpuscular Volume 95 fL (79-100) Mean Corpuscular Hemoglobin 32 pg (25-35) Mean Corpuscular Hemoglobin Concent 33 g/dL (31-37) Red Cell Distribution Width 14.6 % (11.5-14.5) Platelet Count 234 x10^3/uL (140-400) Neutrophils (%) (Auto) 83 % (31-73) Lymphocytes (%) (Auto) 8 % (24-48) Monocytes (%) (Auto) 9 % (0-9) Eosinophils (%) (Auto) 0 % (0-3) Basophils (%) (Auto) 0 % (0-3) Neutrophils # (Auto) 10.7 x10^3uL (1.8-7.7) Lymphocytes # (Auto) 1.0 x10^3/uL (1.0-4.8) Monocytes # (Auto) 1.1 x10^3/uL (0.0-1.1) Eosinophils # (Auto) 0.0 x10^3/uL (0.0-0.7) Basophils # (Auto) 0.0 x10^3/uL (0.0-0.2) Sodium Level 131 mmol/L (136-145) Potassium Level 4.7 mmol/L (3.5-5.1) Chloride Level 98 mmol/L (98-107) Carbon Dioxide Level 26 mmol/L (21-32) Anion Gap 7 (6-14) Blood Urea Nitrogen 18 mg/dL (7-20) Creatinine 0.7 mg/dL (0.6-1.0) Estimated GFR (Cockcroft-Gault) 98.7 BUN/Creatinine Ratio 26 (6-20) Glucose Level 184 mg/dL (70-99) Calcium Level 8.4 mg/dL (8.5-10.1) Magnesium Level 2.2 mg/dL (1.8-2.4) Total Bilirubin 0.4 mg/dL (0.2-1.0) Aspartate Amino Transf (AST/SGOT) 18 U/L (15-37) Alanine Aminotransferase (ALT/SGPT) 16 U/L (14-59) Alkaline Phosphatase 75 U/L (46-116) Total Protein 6.6 g/dL (6.4-8.2) Albumin 1.8 g/dL (3.4-5.0) Albumin/Globulin Ratio 0.4 (1.0-1.7) Glucose (Fingerstick) 175 mg/dL (70-99) 159 mg/dL (70-99) Laboratory Tests Test 09/27/16 16:51 09/27/16 20:54 09/28/16 06:40 09/28/16 07:27 Glucose (Fingerstick) 179 mg/dL (70-99) 196 mg/dL (70-99) 175 mg/dL (70-99) White Blood Count 12.9 x10^3/uL (4.0-11.0) Red Blood Count 3.33 x10^6/uL (3.50-5.40) Hemoglobin 10.5 g/dL (12.0-15.5) Hematocrit 31.5 % (36.0-47.0) Mean Corpuscular Volume 95 fL (79-100) Mean Corpuscular Hemoglobin 32 pg (25-35) Mean Corpuscular Hemoglobin Concent 33 g/dL (31-37) Red Cell Distribution Width 14.6 % (11.5-14.5) Platelet Count 234 x10^3/uL (140-400) Neutrophils (%) (Auto) 83 % (31-73) Lymphocytes (%) (Auto) 8 % (24-48) Monocytes (%) (Auto) 9 % (0-9) Eosinophils (%) (Auto) 0 % (0-3) Basophils (%) (Auto) 0 % (0-3) Neutrophils # (Auto) 10.7 x10^3uL (1.8-7.7) Lymphocytes # (Auto) 1.0 x10^3/uL (1.0-4.8) Monocytes # (Auto) 1.1 x10^3/uL (0.0-1.1) Eosinophils # (Auto) 0.0 x10^3/uL (0.0-0.7) Basophils # (Auto) 0.0 x10^3/uL (0.0-0.2) Sodium Level 131 mmol/L (136-145) Potassium Level 4.7 mmol/L (3.5-5.1) Chloride Level 98 mmol/L (98-107) Carbon Dioxide Level 26 mmol/L (21-32) Anion Gap 7 (6-14) Blood Urea Nitrogen 18 mg/dL (7-20) Creatinine 0.7 mg/dL (0.6-1.0) Estimated GFR (Cockcroft-Gault) 98.7 BUN/Creatinine Ratio 26 (6-20) Glucose Level 184 mg/dL (70-99) Calcium Level 8.4 mg/dL (8.5-10.1) Magnesium Level 2.2 mg/dL (1.8-2.4) Total Bilirubin 0.4 mg/dL (0.2-1.0) Aspartate Amino Transf (AST/SGOT) 18 U/L (15-37) Alanine Aminotransferase (ALT/SGPT) 16 U/L (14-59) Alkaline Phosphatase 75 U/L (46-116) Total Protein 6.6 g/dL (6.4-8.2) Albumin 1.8 g/dL (3.4-5.0) Albumin/Globulin Ratio 0.4 (1.0-1.7) Test 09/28/16 11:18 Glucose (Fingerstick) 159 mg/dL (70-99) Medications Current Medications Ondansetron HCl (Zofran) 4 mg PRN Q8HRS PRN IV NAUSEA/VOMITING Last administered on 09/19/16 02:59; Start 09/18/16 at 22:45; Stop 09/19/16 at 22:44 ; Status DC Fentanyl Citrate (Fentanyl 2ml Vial) 50 mcg PRN Q2HR PRN IV PAIN Last administered on 09/19/16 08:14; Start 09/18/16 at 22:45; Stop 09/19/16 at 22:44 ; Status DC Sodium Chloride 1,000 ml @ 125 mls/hr Q8H IV Last administered on 09/19/16 11 :01; Start 09/18/16 at 22:45; Stop 09/19/16 at 22:44; Status DC Hydralazine HCl (Apresoline) 10 mg PRN Q4HRS PRN IVP ELEVATED BP, SEE COMMENTS Last administered on 09/19/16 01:55; Start 09/19/16 at 01:45; Stop 09/19/16 at 12:24; Status DC Potassium Chloride 30 meq/ Sodium Chloride 1,015 ml @ 125 mls/hr 1X ONCE IV Last administered on 09/19/16 03:07; Start 09/19/16 at 01:45; Stop 09/19/16 at 09:52; Status DC Al Hydroxide/Mg Hydroxide (Mylanta Plus Xs) 15 ml 1X ONCE PO Last administered on 09/19/16 05:50; Start 09/19/16 at 06:00; Stop 09/19/16 at 06:01 ; Status DC Famotidine (Pepcid) 20 mg BID IVP Last administered on 09/24/16 09:01; Start 09/19/16 at 09:00; Stop 09/24/16 at 13:12; Status DC Acetaminophen (Tylenol) 650 mg PRN Q6HRS PRN PO FEVER Last administered on 09/25 08:43; Start 09/19/16 at 09:30; Stop 09/26/16 at 14:20; Status DC Ondansetron HCl (Zofran) 4 mg PRN Q6HRS PRN IV NAUSEA/VOMITING Last administered on 09/25/16 05:35; Start 09/19/16 at 09:30; Stop 09/27/16 at 12:26 ; Status DC Morphine Sulfate 2 mg PRN Q2HR PRN IV PAIN; Start 09/19/16 at 09:30; Stop 09/19 at 09:56; Status DC Tramadol HCl (Ultram) 50 mg PRN Q6HRS PRN PO PAIN Last administered on 09:49; Start 09/19/16 at 09:30; Stop 09/26/16 at 14:20; Status DC Hydralazine HCl (Apresoline) 10 mg PRN Q4HRS PRN IVP ELEVATED BP, SEE COMMENTS Last administered on 09/25/16 17:24; Start 09/19/16 at 09:30 Docusate Sodium (Colace) 100 mg PRN DAILY PRN PO CONSTIPATION Last administered on 09/25/16 08:43; Start 09/19/16 at 09:30; Stop 09/26/16 at 14:20 ; Status DC Barium Sulfate (Liquid E-Z Paque) 355 ml 1X ONCE PO ; Start 09/19/16 at 10:00; Stop 09/19/16 at 10:01; Status DC Barium Sulfate (Liquid E-Z Paque) 355 ml 1X ONCE PO ; Start 09/19/16 at 10:00; Stop 09/19/16 at 10:01; Status DC Morphine Sulfate 2 mg PRN Q2HR PRN IV PAIN Last administered on 09/24/16 09:09 ; Start 09/19/16 at 10:00; Stop 09/24/16 at 13:12; Status DC Throat Lozenges (Chloraseptic) 1 spray PRN Q2HR PRN PO SORE THROAT Last administered on 09/19/16 11:01; Start 09/19/16 at 10:15 Potassium Chloride/Sodium Chloride 1,000 ml @ 100 mls/hr Q10H IV Last administered on 09/20/16 01:57; Start 09/19/16 at 12:30; Stop 09/20/16 at 08:19 ; Status DC Heparin Sodium (Porcine) (Heparin Sq) 5,000 unit Q8HRS SQ Last administered on 09/28/16 06:17; Start 09/19/16 at 14:00 Amino Acids/ Glycerin/ Electrolytes 1,000 ml @ 75 mls/hr [id number] IV Last administered on 09/28/16 01:09; Start 09/20/16 at 08:30 Dextrose (Dextrose 50%-Water Syringe) 25 gm PRN Q15MIN PRN IV SEE COMMENTS Last administered on 09/20/16 11:52; Start 09/20/16 at 11:45 Iohexol (Omnipaque 350 Mg/ml) 400 ml 1X ONCE PO Last administered on 12:37; Start 09/20/16 at 12:15; Stop 09/20/16 at 12:16; Status DC Levofloxacin/ Dextrose 100 ml @ 100 mls/hr 1X PREOP PRN IV PRIOR TO PROCEDURE ; Start 09/21/16 at 17:30; Stop 09/22/16 at 18:00; Status DC Ondansetron HCl (Zofran) 4 mg PRN Q6HRS PRN IV NAUSEA/VOMITING; Start 09/22/16 at 07:45; Stop 09/23/16 at 07:44; Status DC Fentanyl Citrate (Fentanyl 2ml Vial) 25 mcg PRN Q5MIN PRN IV MILD PAIN; Start 09/22/16 at 07:45; Stop 09/23/16 at 07:44; Status DC Fentanyl Citrate (Fentanyl 2ml Vial) 50 mcg PRN Q5MIN PRN IV MODERATE PAIN; Start 09/22/16 at 07:45; Stop 09/23/16 at 07:44; Status DC Morphine Sulfate 1 mg PRN Q10MIN PRN IV SEVERE PAIN; Start 09/22/16 at 07:45; Stop 09/23/16 at 07:44; Status DC Ringer's Solution 1,000 ml @ 30 mls/hr Q24H IV ; Start 09/22/16 at 07:45; Stop 09/22/16 at 19:44; Status DC Lidocaine HCl 2 ml PRN 1X PRN ID PRIOR TO IV START; Start 09/22/16 at 07:45; Stop 09/23/16 at 07:44; Status DC Hydromorphone HCl (Dilaudid) 0.5 mg PRN Q10MIN PRN IV SEV PAIN, Second choice; Start 09/22/16 at 07:45; Stop 09/23/16 at 07:44; Status DC Prochlorperazine Edisylate (Compazine) 5 mg PACU PRN PRN IV NAUSEA, MRX1; Start 09/22/16 at 07:45; Stop 09/23/16 at 07:44; Status DC Lorazepam (Ativan) 0.5 mg 1X ONCE IV Last administered on 09/22/16t 12:08; Start 09/22/16 at 12:00; Stop 09/22/16 at 12:03; Status DC Pantoprazole Sodium (Protonix) 40 mg DAILYAC PO Last administered on 09/25/16 08:43; Start 09/24/16 at 13:15; Stop 09/26/16 at 14:20; Status DC Levofloxacin/ Dextrose 100 ml @ 100 mls/hr 1X PREOP ONCE IV Last administered on 09/25/16 13:32; Start 09/25/16 at 13:30; Stop 09/25/16 at 14:29 ; Status DC Sevoflurane (Ultane) 60 ml STK-MED ONCE IH ; Start 09/25/16 at 13:40; Stop 09/25 at 13:53; Status DC Fentanyl Citrate (Fentanyl 2ml Vial) 100 mcg STK-MED ONCE .ROUTE ; Start at 13:41; Stop 09/25/16 at 13:53; Status DC Glycopyrrolate (Robinul) 1 mg STK-MED ONCE .ROUTE ; Start 09/25/16 at 13:41; Stop 09/25/16 at 13:53; Status DC Propofol 20 ml @ As Directed STK-MED ONCE IV ; Start 09/25/16 at 13:41; Stop at 13:53; Status DC Ondansetron HCl (Zofran) 4 mg STK-MED ONCE .ROUTE ; Start 09/25/16 at 13:42; Stop 09/25/16 at 13:53; Status DC Dexamethasone Sodium Phosphate (Decadron) 20 mg STK-MED ONCE .ROUTE ; Start at 13:42; Stop 09/25/16 at 13:53; Status DC Lidocaine HCl (Lidocaine Pf 2% Vial) 5 ml STK-MED ONCE .ROUTE ; Start 09/25/16 at 13:42; Stop 09/25/16 at 13:53; Status DC Ondansetron HCl (Zofran) 4 mg PRN Q6HRS PRN IV NAUSEA/VOMITING; Start 09/25/16 at 14:00; Stop 09/26/16 at 13:59; Status DC Fentanyl Citrate (Fentanyl 2ml Vial) 25 mcg PRN Q5MIN PRN IV MILD PAIN; Start 09/25/16 at 14:00; Stop 09/26/16 at 13:59; Status DC Fentanyl Citrate (Fentanyl 2ml Vial) 50 mcg PRN Q5MIN PRN IV MODERATE PAIN Last administered on 09/25/16t 17:31; Start 09/25/16 at 14:00; Stop 09/26/16 at 13:59; Status DC Morphine Sulfate 1 mg PRN Q10MIN PRN IV SEVERE PAIN; Start 09/25/16 at 14:00; Stop 09/26/16 at 13:59; Status DC Ringer's Solution 1,000 ml @ 0 mls/hr Q0M IV ; Start 09/25/16 at 13:53; Stop at 01:52; Status DC Lidocaine HCl 2 ml PRN 1X PRN ID PRIOR TO IV START; Start 09/25/16 at 14:00; Stop 09/26/16 at 13:59; Status DC Hydromorphone HCl (Dilaudid) 0.5 mg PRN Q10MIN PRN IV SEV PAIN, Second choice; Start 09/25/16 at 14:00; Stop 09/26/16 at 13:59; Status DC Prochlorperazine Edisylate (Compazine) 5 mg PACU PRN PRN IV NAUSEA, MRX1; Start 09/25/16 at 14:00; Stop 09/26/16 at 13:59; Status DC Fentanyl Citrate (Fentanyl 2ml Vial) 100 mcg STK-MED ONCE .ROUTE ; Start at 14:08; Stop 09/25/16 at 14:09; Status DC Ringer's Solution 1,000 ml @ 125 mls/hr Q8H IV ; Start 09/25/16 at 14:09; Stop 09/26/16 at 02:08; Status DC Fentanyl Citrate (Fentanyl 2ml Vial) 50 mcg PRN Q5MIN PRN IV pain Last administered on 09/25/16 14:15; Start 09/25/16 at 14:15; Stop 09/26/16 at 14:20 ; Status DC Succinylcholine Chloride (Anectine) 200 mg STK-MED ONCE .ROUTE ; Start 09/25/16 at 14:20; Stop 09/25/16 at 14:21; Status DC Fentanyl Citrate (Fentanyl 2ml Vial) 100 mcg STK-MED ONCE .ROUTE ; Start at 14:54; Stop 09/25/16 at 14:55; Status DC Enoxaparin Sodium (Lovenox 40mg Syringe) 40 mg Q24H SQ ; Start 09/25/16 at 18:00 ; Stop 09/26/16 at 11:03; Status DC Sodium Chloride (Normal Saline Flush) 3 ml QSHIFT PRN IV AFTER MEDS AND BLOOD DRAWS; Start 09/25/16 at 16:30 Ringer's Solution 1,000 ml @ 100 mls/hr Q10H IV ; Start 09/25/16 at 16:25; Stop 09/25/16 at 23:51; Status DC Naloxone HCl (Narcan) 0.4 mg PRN Q2MIN PRN IV SEE INSTRUCTIONS; Start 09/25/16 at 16:30 Sodium Chloride 1,000 ml @ 25 mls/hr Q24H IV Last administered on 09/27/16 16 :36; Start 09/25/16 at 16:25 Hydromorphone HCl 30 ml @ 0 mls/hr CONT PRN PRN IV PROTOCOL Last administered on 09/28/16 01:09; Start 09/25/16 at 16:30 Ondansetron HCl (Zofran) 4 mg PRN Q6HRS PRN IV NAUESA, 1ST CHOICE Last administered on 09/28/16 07:20; Start 09/25/16 at 16:30 Fentanyl Citrate (Fentanyl 2ml Vial) 100 mcg STK-MED ONCE .ROUTE ; Start at 17:14; Stop 09/25/16 at 17:15; Status DC Acetaminophen (Tylenol) 325 mg PRN Q6HRS PRN [place] fever >100.4; Start 09/26/16 at 14:30 Bisacodyl (Dulcolax Supp) 10 mg PRN DAILY PRN [place] CONSTIPATION; Start 09/26/16 at 14:30 Famotidine (Pepcid) 20 mg BID IVP Last administered on 09/28/16t 07:20; Start 09/26/16 at 21:00 Insulin Aspart (NovoLOG) 0-5 UNITS TIDWMEALS SQ ; Start 09/26/16 at 17:00 Dextrose (Dextrose 50%-Water Syringe) 12.5 gm PRN Q15MIN PRN IV SEE COMMENTS; Start 09/26/16 at 15:00 Active Scripts Active Senna S Tablet (Sennosides/Docusate Sodium) 1 Each Tablet 1 Each PO DAILY Reported Lexapro (Escitalopram Oxalate) 20 Mg Tablet 1 Tab PO DAILY Lisinopril-Hctz 20-12.5 Mg Tab (Lisinopril/Hydrochlorothiazide) 1 Each Tablet 1 Tab PO DAILY Lipitor (Atorvastatin Calcium) 20 Mg Tablet 20 Mg PO HS Ambien (Zolpidem Tartrate) 5 Mg Tablet 1 Tab PO QHS Lyrica (Pregabalin) 150 Mg Capsule 150 Mg PO BID 30 Days Buspirone Hcl 10 Mg Tablet 10 Mg PO BID Aspir 81 (Aspirin) 81 Mg Tablet. 1 Tab PO DAILY Vitals/I & O Vital Sign - Last 24 Hours 09/27/16 09/27/16 09/27/16 09/27/16 14:56 15:00 16:29 19:00 Temp 96.8 99.5 96.8 99.5 Pulse 76 87 Resp 20 20 21 18 B/P (MAP) 127/74 (91) 109/68 (82) Pulse Ox 95 98 O2 Delivery Nasal Cannula Nasal Cannula Nasal Cannula Nasal Cannula O2 Flow Rate 2.0 2.0 2.0 2.0 09/27/16 09/27/16 09/27/16 09/28/16 19:45 20:00 23:00 00:00 Temp 98.8 98.8 Pulse 85 Resp 22 18 20 B/P (MAP) 124/72 (89) Pulse Ox 98 100 100 O2 Delivery Nasal Cannula Nasal Cannula Nasal Cannula Nasal Cannula O2 Flow Rate 2.0 2.0 2.0 2.0 09/28/16 09/28/16 09/28/16 09/28/16 01:09 01:41 03:00 07:00 Temp 97.9 97.4 97.9 97.4 Pulse 84 85 Resp 18 22 18 20 B/P (MAP) 130/69 (89) 109/68 (82) Pulse Ox 100 100 98 O2 Delivery Nasal Cannula Nasal Cannula Nasal Cannula O2 Flow Rate 2.0 2.0 2.0 2.0 09/28/16 09/28/16 09/28/16 08:00 11:00 12:00 Temp 97.9 97.9 Pulse 87 Resp 18 19 B/P (MAP) 119/67 (84) Pulse Ox 100 O2 Delivery Nasal Cannula Nasal Cannula Nasal Cannula O2 Flow Rate 2.0 2.0 2.0 Intake and Output 09/27/16 09/27/16 09/28/16 15:00 23:00 07:00 Intake Total 1000 ml 700 ml 1540.5 ml Output Total 550 ml 850 ml Balance 1000 ml 150 ml 690.5 ml KENIA GIFFORD MD Sep 28, 2016 13:52
[2016-09-28] MEDS ORDERED: SALIVA STIMULANT AGENT 44ML SPRAY BOTTLE. PO PRN (14:00)
[2016-09-28 15:00] VITALS: BP 121/65
[2016-09-28] MEDS: IV NORMAL SALINE 1000ML BAG 1,000 ML IV SCH (16:00)
[2016-09-28 19:00] VITALS: BP 129/68
[2016-09-28] MEDS: ACETAMINOPHEN 325 MG SUPP.RECT. PR PRN (19:28)
[2016-09-28 23:03] VITALS: BP 138/77
[2016-09-29 03:00] VITALS: BP 125/61
[2016-09-29] MEDS: AMINO AC 3%/ELECTROLYTE/GLYCER 1,000 ML IV SCH ×2 (06:09→20:37)
[2016-09-29] MEDS: HEPARIN PF for SUB-Q USE 5,000 UNIT/0.5 ML VIAL. SQ SCH ×3 (06:15→21:42)
[2016-09-29 06:57] LABS: BASO % 0 % (0-3); EOS % 0 % (0-3); HEMOGLOBIN 9.7 g/dL (12.0-15.5); LYMPH # 0.8 x10^3/uL (1.0-4.8); LYMPH % 7 % (24-48); MEAN CORPUSCULAR HEMOGLOBIN 32 pg (25-35); MEAN CORPUSCULAR HGB CONC 33 g/dL (31-37); MEAN CORPUSCULAR VOLUME 95 fL (79-100); MONO % 8 % (0-9); NEUT % 85 % (31-73); PLATELET COUNT 208 x10^3/uL (140-400); RED BLOOD COUNT 3.04 x10^6/uL (3.50-5.40); RED CELL DISTRIBUTION WIDTH 14.9 % (11.5-14.5); WHITE BLOOD COUNT 11.7 x10^3/uL (4.0-11.0)
[2016-09-29 07:00] VITALS: BP 119/66
[2016-09-29 07:24] LABS: ALBUMIN 1.5 g/dL (3.4-5.0); ALBUMIN/GLOBULIN RATIO 0.3 (1.0-1.7); CALCIUM 7.9 mg/dL (8.5-10.1); CREATININE 0.7 mg/dL (0.6-1.0); GFR 98.7; MAGNESIUM 2.5 mg/dL (1.8-2.4); POTASSIUM 5.9 mmol/L (3.5-5.1); TOTAL BILIRUBIN 0.8 mg/dL (0.2-1.0)
[2016-09-29] MEDS: INSULIN ASPART 300 UNITS/3 ML INSULN.PEN SQ SCH ×3 (08:00→17:00)
[2016-09-29] MEDS: FAMOTIDINE 20 MG/2 ML VIAL IVP SCH ×2 (09:04→20:37)
--- NOTE | 2016-09-29 09:26 | PDOC ---
Subjective: Subjective: Fair. Has some pain. No flatus. Objective: Objective: D/w RN. Tmax 101.1 On PPN, IV H2 pamela. Vital Signs: Vital Signs Date Time Temp Pulse Resp B/P (MAP) Pulse Ox O2 Delivery O2 Flow Rate FiO2 09/29/16 07:00 97.9 100 17 119/66 (83) 99 Room Air 97.9 09/29/16 03:00 2.0 Labs: Laboratory Tests Test 09/28/16 11:18 09/28/16 16:43 09/28/16 21:22 09/29/16 06:45 Glucose (Fingerstick) 159 mg/dL 184 mg/dL 197 mg/dL White Blood Count 11.7 x10^3/uL Red Blood Count 3.04 x10^6/uL Hemoglobin 9.7 g/dL Hematocrit 29.0 % Mean Corpuscular Volume 95 fL Mean Corpuscular Hemoglobin 32 pg Mean Corpuscular Hemoglobin Concent 33 g/dL Red Cell Distribution Width 14.9 % Platelet Count 208 x10^3/uL Neutrophils (%) (Auto) 85 % Lymphocytes (%) (Auto) 7 % Monocytes (%) (Auto) 8 % Eosinophils (%) (Auto) 0 % Basophils (%) (Auto) 0 % Neutrophils # (Auto) 9.9 x10^3uL Lymphocytes # (Auto) 0.8 x10^3/uL Monocytes # (Auto) 0.9 x10^3/uL Eosinophils # (Auto) 0.0 x10^3/uL Basophils # (Auto) 0.0 x10^3/uL Sodium Level 123 mmol/L Potassium Level 5.9 mmol/L Chloride Level 92 mmol/L Carbon Dioxide Level 25 mmol/L Anion Gap 6 Blood Urea Nitrogen 14 mg/dL Creatinine 0.7 mg/dL Estimated GFR (Cockcroft-Gault) 98.7 BUN/Creatinine Ratio 20 Glucose Level 176 mg/dL Calcium Level 7.9 mg/dL Magnesium Level 2.5 mg/dL Total Bilirubin 0.8 mg/dL Aspartate Amino Transf (AST/SGOT) 35 U/L Alanine Aminotransferase (ALT/SGPT) 33 U/L Alkaline Phosphatase 100 U/L Total Protein 6.0 g/dL Albumin 1.5 g/dL Albumin/Globulin Ratio 0.3 Test 09/29/16 07:10 Glucose (Fingerstick) 169 mg/dL PE: GEN: NAD LUNGS: nasal cannula HEART: RRR ABD: some distended, ?quiet BS, G tube to drainage A/P: Recurrent SBO s/p laparotomy w/ SAEED 09/25/16 Metastatic adenocarcinoma, ascites, h/o uterine cancer, elevated CA125 -- Continue per surgery. EDMOND BAIRD Sep 29, 2016 09:26
--- NOTE | 2016-09-29 10:21 | PDOC ---
SURGICAL PROGRESS NOTE Subjective Pt with c/o some incisional pain, some nausea Vital Signs Vital Signs Date Time Temp Pulse Resp B/P (MAP) Pulse Ox O2 Delivery O2 Flow Rate FiO2 09/29/16 07:00 97.9 100 17 119/66 (83) 99 Room Air 97.9 09/29/16 03:00 2.0 I&O Intake and Output 09/29/16 07:00 Intake Total 3477.83 ml Output Total 1275 ml Balance 2202.83 ml Intake Oral 0 ml IV Total 3477.83 ml Output Urine Total 925 ml Drainage Total 350 ml # Voids 1 General: Alert, Cooperative, No acute distress Abdomen: Soft, Other (some TTP) Labs Laboratory Tests Test 09/27/16 11:33 09/27/16 16:51 09/27/16 20:54 09/28/16 06:40 Glucose (Fingerstick) 214 mg/dL (70-99) 179 mg/dL (70-99) 196 mg/dL (70-99) White Blood Count 12.9 x10^3/uL (4.0-11.0) Red Blood Count 3.33 x10^6/uL (3.50-5.40) Hemoglobin 10.5 g/dL (12.0-15.5) Hematocrit 31.5 % (36.0-47.0) Mean Corpuscular Volume 95 fL (79-100) Mean Corpuscular Hemoglobin 32 pg (25-35) Mean Corpuscular Hemoglobin Concent 33 g/dL (31-37) Red Cell Distribution Width 14.6 % (11.5-14.5) Platelet Count 234 x10^3/uL (140-400) Neutrophils (%) (Auto) 83 % (31-73) Lymphocytes (%) (Auto) 8 % (24-48) Monocytes (%) (Auto) 9 % (0-9) Eosinophils (%) (Auto) 0 % (0-3) Basophils (%) (Auto) 0 % (0-3) Neutrophils # (Auto) 10.7 x10^3uL (1.8-7.7) Lymphocytes # (Auto) 1.0 x10^3/uL (1.0-4.8) Monocytes # (Auto) 1.1 x10^3/uL (0.0-1.1) Eosinophils # (Auto) 0.0 x10^3/uL (0.0-0.7) Basophils # (Auto) 0.0 x10^3/uL (0.0-0.2) Sodium Level 131 mmol/L (136-145) Potassium Level 4.7 mmol/L (3.5-5.1) Chloride Level 98 mmol/L (98-107) Carbon Dioxide Level 26 mmol/L (21-32) Anion Gap 7 (6-14) Blood Urea Nitrogen 18 mg/dL (7-20) Creatinine 0.7 mg/dL (0.6-1.0) Estimated GFR (Cockcroft-Gault) 98.7 BUN/Creatinine Ratio 26 (6-20) Glucose Level 184 mg/dL (70-99) Calcium Level 8.4 mg/dL (8.5-10.1) Magnesium Level 2.2 mg/dL (1.8-2.4) Total Bilirubin 0.4 mg/dL (0.2-1.0) Aspartate Amino Transf (AST/SGOT) 18 U/L (15-37) Alanine Aminotransferase (ALT/SGPT) 16 U/L (14-59) Alkaline Phosphatase 75 U/L (46-116) Total Protein 6.6 g/dL (6.4-8.2) Albumin 1.8 g/dL (3.4-5.0) Albumin/Globulin Ratio 0.4 (1.0-1.7) Test 09/28/16 07:27 09/28/16 11:18 09/28/16 16:43 09/28/16 21:22 Glucose (Fingerstick) 175 mg/dL (70-99) 159 mg/dL (70-99) 184 mg/dL (70-99) 197 mg/dL (70-99) Test 09/29/16 06:45 09/29/16 07:10 White Blood Count 11.7 x10^3/uL (4.0-11.0) Red Blood Count 3.04 x10^6/uL (3.50-5.40) Hemoglobin 9.7 g/dL (12.0-15.5) Hematocrit 29.0 % (36.0-47.0) Mean Corpuscular Volume 95 fL (79-100) Mean Corpuscular Hemoglobin 32 pg (25-35) Mean Corpuscular Hemoglobin Concent 33 g/dL (31-37) Red Cell Distribution Width 14.9 % (11.5-14.5) Platelet Count 208 x10^3/uL (140-400) Neutrophils (%) (Auto) 85 % (31-73) Lymphocytes (%) (Auto) 7 % (24-48) Monocytes (%) (Auto) 8 % (0-9) Eosinophils (%) (Auto) 0 % (0-3) Basophils (%) (Auto) 0 % (0-3) Neutrophils # (Auto) 9.9 x10^3uL (1.8-7.7) Lymphocytes # (Auto) 0.8 x10^3/uL (1.0-4.8) Monocytes # (Auto) 0.9 x10^3/uL (0.0-1.1) Eosinophils # (Auto) 0.0 x10^3/uL (0.0-0.7) Basophils # (Auto) 0.0 x10^3/uL (0.0-0.2) Sodium Level 123 mmol/L (136-145) Potassium Level 5.9 mmol/L (3.5-5.1) Chloride Level 92 mmol/L (98-107) Carbon Dioxide Level 25 mmol/L (21-32) Anion Gap 6 (6-14) Blood Urea Nitrogen 14 mg/dL (7-20) Creatinine 0.7 mg/dL (0.6-1.0) Estimated GFR (Cockcroft-Gault) 98.7 BUN/Creatinine Ratio 20 (6-20) Glucose Level 176 mg/dL (70-99) Calcium Level 7.9 mg/dL (8.5-10.1) Magnesium Level 2.5 mg/dL (1.8-2.4) Total Bilirubin 0.8 mg/dL (0.2-1.0) Aspartate Amino Transf (AST/SGOT) 35 U/L (15-37) Alanine Aminotransferase (ALT/SGPT) 33 U/L (14-59) Alkaline Phosphatase 100 U/L (46-116) Total Protein 6.0 g/dL (6.4-8.2) Albumin 1.5 g/dL (3.4-5.0) Albumin/Globulin Ratio 0.3 (1.0-1.7) Glucose (Fingerstick) 169 mg/dL (70-99) Laboratory Tests Test 09/28/16 11:18 09/28/16 16:43 09/28/16 21:22 09/29/16 06:45 Glucose (Fingerstick) 159 mg/dL (70-99) 184 mg/dL (70-99) 197 mg/dL (70-99) White Blood Count 11.7 x10^3/uL (4.0-11.0) Red Blood Count 3.04 x10^6/uL (3.50-5.40) Hemoglobin 9.7 g/dL (12.0-15.5) Hematocrit 29.0 % (36.0-47.0) Mean Corpuscular Volume 95 fL (79-100) Mean Corpuscular Hemoglobin 32 pg (25-35) Mean Corpuscular Hemoglobin Concent 33 g/dL (31-37) Red Cell Distribution Width 14.9 % (11.5-14.5) Platelet Count 208 x10^3/uL (140-400) Neutrophils (%) (Auto) 85 % (31-73) Lymphocytes (%) (Auto) 7 % (24-48) Monocytes (%) (Auto) 8 % (0-9) Eosinophils (%) (Auto) 0 % (0-3) Basophils (%) (Auto) 0 % (0-3) Neutrophils # (Auto) 9.9 x10^3uL (1.8-7.7) Lymphocytes # (Auto) 0.8 x10^3/uL (1.0-4.8) Monocytes # (Auto) 0.9 x10^3/uL (0.0-1.1) Eosinophils # (Auto) 0.0 x10^3/uL (0.0-0.7) Basophils # (Auto) 0.0 x10^3/uL (0.0-0.2) Sodium Level 123 mmol/L (136-145) Potassium Level 5.9 mmol/L (3.5-5.1) Chloride Level 92 mmol/L (98-107) Carbon Dioxide Level 25 mmol/L (21-32) Anion Gap 6 (6-14) Blood Urea Nitrogen 14 mg/dL (7-20) Creatinine 0.7 mg/dL (0.6-1.0) Estimated GFR (Cockcroft-Gault) 98.7 BUN/Creatinine Ratio 20 (6-20) Glucose Level 176 mg/dL (70-99) Calcium Level 7.9 mg/dL (8.5-10.1) Magnesium Level 2.5 mg/dL (1.8-2.4) Total Bilirubin 0.8 mg/dL (0.2-1.0) Aspartate Amino Transf (AST/SGOT) 35 U/L (15-37) Alanine Aminotransferase (ALT/SGPT) 33 U/L (14-59) Alkaline Phosphatase 100 U/L (46-116) Total Protein 6.0 g/dL (6.4-8.2) Albumin 1.5 g/dL (3.4-5.0) Albumin/Globulin Ratio 0.3 (1.0-1.7) Test 09/29/16 07:10 Glucose (Fingerstick) 169 mg/dL (70-99) Problem List Problems Medical Problems: (1) Abdominal pain Status: Acute (2) Nausea and vomiting Status: Acute Assessment/Plan s/p xlap metastatic uterine cancer will try clears, cont G-tube to dependent drainage await bowel fxn improvement Problems: MALATHI FREITAS MD Sep 29, 2016 10:21
[2016-09-29 10:41] VITALS: BP 156/63
--- NOTE | 2016-09-29 14:01 | PDOC ---
PROGRESS NOTES Subjective Subjective c/c - f/u of Recurrent metastatic endometrial carcinoma, stage 4. c/o of abd incisional pain Objective Objective Vital Signs Date Time Temp Pulse Resp B/P (MAP) Pulse Ox O2 Delivery O2 Flow Rate FiO2 09/29/16 10:41 100.4 108 17 156/63 (94) 98 Room Air 100.4 09/29/16 08:00 2.0 Intake and Output 09/29/16 06:59 Intake Total 3477.83 ml Output Total 1275 ml Balance 2202.83 ml Intake Oral 0 ml IV Total 3477.83 ml Output Urine Total 925 ml Drainage Total 350 ml # Voids 1 Physical Exam Heart: Normal S1, Normal S2 General: Alert, Oriented X3 Lungs: Clear to auscultation Assessment Assessment Problems Medical Problems: (1) Abdominal pain Status: Acute (2) Nausea and vomiting Status: Acute IMPRESSION AND PLAN: 1. Recurrent metastatic endometrial carcinoma, stage 4. She was initially diagnosed with endometrial carcinoma in 2014, status post surgery, chemotherapy and radiation therapy. She received carboplatin and Taxol at [facility] by Dr. Santiago Funk. She now has evidence of progressive disease. I have advised the patient and the son regarding the surgical findings and the evidence of progressive malignancy. I will await final pathology results. I would recommend follow up with Dr. Santiago Funk regarding further palliative chemotherapy. All her questions were answered. 2. Small-bowel obstruction, status post exploratory laparotomy and lysis of adhesions on 09/25/2016. Continue postoperative care for Dr. Johnathan Carrillo. 3. Abd pain - post-op, continue pain management. I d/w RN Comment Review of Relevant I have reviewed the following items anita (where applicable) has been applied. Labs Laboratory Tests Test 09/27/16 16:51 09/27/16 20:54 09/28/16 06:40 09/28/16 07:27 Glucose (Fingerstick) 179 mg/dL (70-99) 196 mg/dL (70-99) 175 mg/dL (70-99) White Blood Count 12.9 x10^3/uL (4.0-11.0) Red Blood Count 3.33 x10^6/uL (3.50-5.40) Hemoglobin 10.5 g/dL (12.0-15.5) Hematocrit 31.5 % (36.0-47.0) Mean Corpuscular Volume 95 fL (79-100) Mean Corpuscular Hemoglobin 32 pg (25-35) Mean Corpuscular Hemoglobin Concent 33 g/dL (31-37) Red Cell Distribution Width 14.6 % (11.5-14.5) Platelet Count 234 x10^3/uL (140-400) Neutrophils (%) (Auto) 83 % (31-73) Lymphocytes (%) (Auto) 8 % (24-48) Monocytes (%) (Auto) 9 % (0-9) Eosinophils (%) (Auto) 0 % (0-3) Basophils (%) (Auto) 0 % (0-3) Neutrophils # (Auto) 10.7 x10^3uL (1.8-7.7) Lymphocytes # (Auto) 1.0 x10^3/uL (1.0-4.8) Monocytes # (Auto) 1.1 x10^3/uL (0.0-1.1) Eosinophils # (Auto) 0.0 x10^3/uL (0.0-0.7) Basophils # (Auto) 0.0 x10^3/uL (0.0-0.2) Sodium Level 131 mmol/L (136-145) Potassium Level 4.7 mmol/L (3.5-5.1) Chloride Level 98 mmol/L (98-107) Carbon Dioxide Level 26 mmol/L (21-32) Anion Gap 7 (6-14) Blood Urea Nitrogen 18 mg/dL (7-20) Creatinine 0.7 mg/dL (0.6-1.0) Estimated GFR (Cockcroft-Gault) 98.7 BUN/Creatinine Ratio 26 (6-20) Glucose Level 184 mg/dL (70-99) Calcium Level 8.4 mg/dL (8.5-10.1) Magnesium Level 2.2 mg/dL (1.8-2.4) Total Bilirubin 0.4 mg/dL (0.2-1.0) Aspartate Amino Transf (AST/SGOT) 18 U/L (15-37) Alanine Aminotransferase (ALT/SGPT) 16 U/L (14-59) Alkaline Phosphatase 75 U/L (46-116) Total Protein 6.6 g/dL (6.4-8.2) Albumin 1.8 g/dL (3.4-5.0) Albumin/Globulin Ratio 0.4 (1.0-1.7) Test 09/28/16 11:18 09/28/16 16:43 09/28/16 21:22 09/29/16 06:45 Glucose (Fingerstick) 159 mg/dL (70-99) 184 mg/dL (70-99) 197 mg/dL (70-99) White Blood Count 11.7 x10^3/uL (4.0-11.0) Red Blood Count 3.04 x10^6/uL (3.50-5.40) Hemoglobin 9.7 g/dL (12.0-15.5) Hematocrit 29.0 % (36.0-47.0) Mean Corpuscular Volume 95 fL (79-100) Mean Corpuscular Hemoglobin 32 pg (25-35) Mean Corpuscular Hemoglobin Concent 33 g/dL (31-37) Red Cell Distribution Width 14.9 % (11.5-14.5) Platelet Count 208 x10^3/uL (140-400) Neutrophils (%) (Auto) 85 % (31-73) Lymphocytes (%) (Auto) 7 % (24-48) Monocytes (%) (Auto) 8 % (0-9) Eosinophils (%) (Auto) 0 % (0-3) Basophils (%) (Auto) 0 % (0-3) Neutrophils # (Auto) 9.9 x10^3uL (1.8-7.7) Lymphocytes # (Auto) 0.8 x10^3/uL (1.0-4.8) Monocytes # (Auto) 0.9 x10^3/uL (0.0-1.1) Eosinophils # (Auto) 0.0 x10^3/uL (0.0-0.7) Basophils # (Auto) 0.0 x10^3/uL (0.0-0.2) Sodium Level 123 mmol/L (136-145) Potassium Level 5.9 mmol/L (3.5-5.1) Chloride Level 92 mmol/L (98-107) Carbon Dioxide Level 25 mmol/L (21-32) Anion Gap 6 (6-14) Blood Urea Nitrogen 14 mg/dL (7-20) Creatinine 0.7 mg/dL (0.6-1.0) Estimated GFR (Cockcroft-Gault) 98.7 BUN/Creatinine Ratio 20 (6-20) Glucose Level 176 mg/dL (70-99) Calcium Level 7.9 mg/dL (8.5-10.1) Magnesium Level 2.5 mg/dL (1.8-2.4) Total Bilirubin 0.8 mg/dL (0.2-1.0) Aspartate Amino Transf (AST/SGOT) 35 U/L (15-37) Alanine Aminotransferase (ALT/SGPT) 33 U/L (14-59) Alkaline Phosphatase 100 U/L (46-116) Total Protein 6.0 g/dL (6.4-8.2) Albumin 1.5 g/dL (3.4-5.0) Albumin/Globulin Ratio 0.3 (1.0-1.7) Test 09/29/16 07:10 09/29/16 11:19 Glucose (Fingerstick) 169 mg/dL (70-99) 199 mg/dL (70-99) Laboratory Tests Test 09/28/16 16:43 09/28/16 21:22 09/29/16 06:45 09/29/16 07:10 Glucose (Fingerstick) 184 mg/dL (70-99) 197 mg/dL (70-99) 169 mg/dL (70-99) White Blood Count 11.7 x10^3/uL (4.0-11.0) Red Blood Count 3.04 x10^6/uL (3.50-5.40) Hemoglobin 9.7 g/dL (12.0-15.5) Hematocrit 29.0 % (36.0-47.0) Mean Corpuscular Volume 95 fL (79-100) Mean Corpuscular Hemoglobin 32 pg (25-35) Mean Corpuscular Hemoglobin Concent 33 g/dL (31-37) Red Cell Distribution Width 14.9 % (11.5-14.5) Platelet Count 208 x10^3/uL (140-400) Neutrophils (%) (Auto) 85 % (31-73) Lymphocytes (%) (Auto) 7 % (24-48) Monocytes (%) (Auto) 8 % (0-9) Eosinophils (%) (Auto) 0 % (0-3) Basophils (%) (Auto) 0 % (0-3) Neutrophils # (Auto) 9.9 x10^3uL (1.8-7.7) Lymphocytes # (Auto) 0.8 x10^3/uL (1.0-4.8) Monocytes # (Auto) 0.9 x10^3/uL (0.0-1.1) Eosinophils # (Auto) 0.0 x10^3/uL (0.0-0.7) Basophils # (Auto) 0.0 x10^3/uL (0.0-0.2) Sodium Level 123 mmol/L (136-145) Potassium Level 5.9 mmol/L (3.5-5.1) Chloride Level 92 mmol/L (98-107) Carbon Dioxide Level 25 mmol/L (21-32) Anion Gap 6 (6-14) Blood Urea Nitrogen 14 mg/dL (7-20) Creatinine 0.7 mg/dL (0.6-1.0) Estimated GFR (Cockcroft-Gault) 98.7 BUN/Creatinine Ratio 20 (6-20) Glucose Level 176 mg/dL (70-99) Calcium Level 7.9 mg/dL (8.5-10.1) Magnesium Level 2.5 mg/dL (1.8-2.4) Total Bilirubin 0.8 mg/dL (0.2-1.0) Aspartate Amino Transf (AST/SGOT) 35 U/L (15-37) Alanine Aminotransferase (ALT/SGPT) 33 U/L (14-59) Alkaline Phosphatase 100 U/L (46-116) Total Protein 6.0 g/dL (6.4-8.2) Albumin 1.5 g/dL (3.4-5.0) Albumin/Globulin Ratio 0.3 (1.0-1.7) Test 09/29/16 11:19 Glucose (Fingerstick) 199 mg/dL (70-99) Medications Current Medications Ondansetron HCl (Zofran) 4 mg PRN Q8HRS PRN IV NAUSEA/VOMITING Last administered on 09/19/16t 02:59; Start 09/18/16 at 22:45; Stop 09/19/16 at 22:44 ; Status DC Fentanyl Citrate (Fentanyl 2ml Vial) 50 mcg PRN Q2HR PRN IV PAIN Last administered on 09/19/16 08:14; Start 09/18/16 at 22:45; Stop 09/19/16 at 22:44 ; Status DC Sodium Chloride 1,000 ml @ 125 mls/hr Q8H IV Last administered on 09/19/16 11 :01; Start 09/18/16 at 22:45; Stop 09/19/16 at 22:44; Status DC Hydralazine HCl (Apresoline) 10 mg PRN Q4HRS PRN IVP ELEVATED BP, SEE COMMENTS Last administered on 09/19/16 01:55; Start 09/19/16 at 01:45; Stop 09/19/16 at 12:24; Status DC Potassium Chloride 30 meq/ Sodium Chloride 1,015 ml @ 125 mls/hr 1X ONCE IV Last administered on 09/19/16 03:07; Start 09/19/16 at 01:45; Stop 09/19/16 at 09:52; Status DC Al Hydroxide/Mg Hydroxide (Mylanta Plus Xs) 15 ml 1X ONCE PO Last administered on 09/19/16 05:50; Start 09/19/16 at 06:00; Stop 09/19/16 at 06:01 ; Status DC Famotidine (Pepcid) 20 mg BID IVP Last administered on 09/24/16 09:01; Start 09/19/16 at 09:00; Stop 09/24/16 at 13:12; Status DC Acetaminophen (Tylenol) 650 mg PRN Q6HRS PRN PO FEVER Last administered on 09/25 08:43; Start 09/19/16 at 09:30; Stop 09/26/16 at 14:20; Status DC Ondansetron HCl (Zofran) 4 mg PRN Q6HRS PRN IV NAUSEA/VOMITING Last administered on 09/25/16 05:35; Start 09/19/16 at 09:30; Stop 09/27/16 at 12:26 ; Status DC Morphine Sulfate 2 mg PRN Q2HR PRN IV PAIN; Start 09/19/16 at 09:30; Stop 09/19 at 09:56; Status DC Tramadol HCl (Ultram) 50 mg PRN Q6HRS PRN PO PAIN Last administered on 09:49; Start 09/19/16 at 09:30; Stop 09/26/16 at 14:20; Status DC Hydralazine HCl (Apresoline) 10 mg PRN Q4HRS PRN IVP ELEVATED BP, SEE COMMENTS Last administered on 09/25/16 17:24; Start 09/19/16 at 09:30 Docusate Sodium (Colace) 100 mg PRN DAILY PRN PO CONSTIPATION Last administered on 09/25/16 08:43; Start 09/19/16 at 09:30; Stop 09/26/16 at 14:20 ; Status DC Barium Sulfate (Liquid E-Z Paque) 355 ml 1X ONCE PO ; Start 09/19/16 at 10:00; Stop 09/19/16 at 10:01; Status DC Barium Sulfate (Liquid E-Z Paque) 355 ml 1X ONCE PO ; Start 09/19/16 at 10:00; Stop 09/19/16 at 10:01; Status DC Morphine Sulfate 2 mg PRN Q2HR PRN IV PAIN Last administered on 09/24/16 09:09 ; Start 09/19/16 at 10:00; Stop 09/24/16 at 13:12; Status DC Throat Lozenges (Chloraseptic) 1 spray PRN Q2HR PRN PO SORE THROAT Last administered on 09/19/16 11:01; Start 09/19/16 at 10:15 Potassium Chloride/Sodium Chloride 1,000 ml @ 100 mls/hr Q10H IV Last administered on 09/20/16 01:57; Start 09/19/16 at 12:30; Stop 09/20/16 at 08:19 ; Status DC Heparin Sodium (Porcine) (Heparin Sq) 5,000 unit Q8HRS SQ Last administered on 09/29/16 06:15; Start 09/19/16 at 14:00 Amino Acids/ Glycerin/ Electrolytes 1,000 ml @ 75 mls/hr [id number] IV Last administered on 09/29/16 06:09; Start 09/20/16 at 08:30 Dextrose (Dextrose 50%-Water Syringe) 25 gm PRN Q15MIN PRN IV SEE COMMENTS Last administered on 09/20/16 11:52; Start 09/20/16 at 11:45; Stop 09/29/16 at 13:46; Status DC Iohexol (Omnipaque 350 Mg/ml) 400 ml 1X ONCE PO Last administered on t 12:37; Start 09/20/16 at 12:15; Stop 09/20/16 at 12:16; Status DC Levofloxacin/ Dextrose 100 ml @ 100 mls/hr 1X PREOP PRN IV PRIOR TO PROCEDURE ; Start 09/21/16 at 17:30; Stop 09/22/16 at 18:00; Status DC Ondansetron HCl (Zofran) 4 mg PRN Q6HRS PRN IV NAUSEA/VOMITING; Start 09/22/16 at 07:45; Stop 09/23/16 at 07:44; Status DC Fentanyl Citrate (Fentanyl 2ml Vial) 25 mcg PRN Q5MIN PRN IV MILD PAIN; Start 09/22/16 at 07:45; Stop 09/23/16 at 07:44; Status DC Fentanyl Citrate (Fentanyl 2ml Vial) 50 mcg PRN Q5MIN PRN IV MODERATE PAIN; Start 09/22/16 at 07:45; Stop 09/23/16 at 07:44; Status DC Morphine Sulfate 1 mg PRN Q10MIN PRN IV SEVERE PAIN; Start 09/22/16 at 07:45; Stop 09/23/16 at 07:44; Status DC Ringer's Solution 1,000 ml @ 30 mls/hr Q24H IV ; Start 09/22/16 at 07:45; Stop 09/22/16 at 19:44; Status DC Lidocaine HCl 2 ml PRN 1X PRN ID PRIOR TO IV START; Start 09/22/16 at 07:45; Stop 09/23/16 at 07:44; Status DC Hydromorphone HCl (Dilaudid) 0.5 mg PRN Q10MIN PRN IV SEV PAIN, Second choice; Start 09/22/16 at 07:45; Stop 09/23/16 at 07:44; Status DC Prochlorperazine Edisylate (Compazine) 5 mg PACU PRN PRN IV NAUSEA, MRX1; Start 09/22/16 at 07:45; Stop 09/23/16 at 07:44; Status DC Lorazepam (Ativan) 0.5 mg 1X ONCE IV Last administered on 8/14/17at 12:08; Start 09/22/16 at 12:00; Stop 09/22/16 at 12:03; Status DC Pantoprazole Sodium (Protonix) 40 mg DAILYAC PO Last administered on 09/25/16t 08:43; Start 09/24/16 at 13:15; Stop 09/26/16 at 14:20; Status DC Levofloxacin/ Dextrose 100 ml @ 100 mls/hr 1X PREOP ONCE IV Last administered on 09/25/16t 13:32; Start 09/25/16 at 13:30; Stop 09/25/16 at 14:29 ; Status DC Sevoflurane (Ultane) 60 ml STK-MED ONCE IH ; Start 09/25/16 at 13:40; Stop 09/25 at 13:53; Status DC Fentanyl Citrate (Fentanyl 2ml Vial) 100 mcg STK-MED ONCE .ROUTE ; Start at 13:41; Stop 09/25/16 at 13:53; Status DC Glycopyrrolate (Robinul) 1 mg STK-MED ONCE .ROUTE ; Start 09/25/16 at 13:41; Stop 09/25/16 at 13:53; Status DC Propofol 20 ml @ As Directed STK-MED ONCE IV ; Start 09/25/16 at 13:41; Stop at 13:53; Status DC Ondansetron HCl (Zofran) 4 mg STK-MED ONCE .ROUTE ; Start 09/25/16 at 13:42; Stop 09/25/16 at 13:53; Status DC Dexamethasone Sodium Phosphate (Decadron) 20 mg STK-MED ONCE .ROUTE ; Start at 13:42; Stop 09/25/16 at 13:53; Status DC Lidocaine HCl (Lidocaine Pf 2% Vial) 5 ml STK-MED ONCE .ROUTE ; Start 09/25/16 at 13:42; Stop 09/25/16 at 13:53; Status DC Ondansetron HCl (Zofran) 4 mg PRN Q6HRS PRN IV NAUSEA/VOMITING; Start 09/25/16 at 14:00; Stop 09/26/16 at 13:59; Status DC Fentanyl Citrate (Fentanyl 2ml Vial) 25 mcg PRN Q5MIN PRN IV MILD PAIN; Start 09/25/16 at 14:00; Stop 09/26/16 at 13:59; Status DC Fentanyl Citrate (Fentanyl 2ml Vial) 50 mcg PRN Q5MIN PRN IV MODERATE PAIN Last administered on 09/25/16t 17:31; Start 09/25/16 at 14:00; Stop 09/26/16 at 13:59; Status DC Morphine Sulfate 1 mg PRN Q10MIN PRN IV SEVERE PAIN; Start 09/25/16 at 14:00; Stop 09/26/16 at 13:59; Status DC Ringer's Solution 1,000 ml @ 0 mls/hr Q0M IV ; Start 09/25/16 at 13:53; Stop at 01:52; Status DC Lidocaine HCl 2 ml PRN 1X PRN ID PRIOR TO IV START; Start 09/25/16 at 14:00; Stop 09/26/16 at 13:59; Status DC Hydromorphone HCl (Dilaudid) 0.5 mg PRN Q10MIN PRN IV SEV PAIN, Second choice; Start 09/25/16 at 14:00; Stop 09/26/16 at 13:59; Status DC Prochlorperazine Edisylate (Compazine) 5 mg PACU PRN PRN IV NAUSEA, MRX1; Start 09/25/16 at 14:00; Stop 09/26/16 at 13:59; Status DC Fentanyl Citrate (Fentanyl 2ml Vial) 100 mcg STK-MED ONCE .ROUTE ; Start at 14:08; Stop 09/25/16 at 14:09; Status DC Ringer's Solution 1,000 ml @ 125 mls/hr Q8H IV ; Start 09/25/16 at 14:09; Stop 09/26/16 at 02:08; Status DC Fentanyl Citrate (Fentanyl 2ml Vial) 50 mcg PRN Q5MIN PRN IV pain Last administered on 09/25/16t 14:15; Start 09/25/16 at 14:15; Stop 09/26/16 at 14:20 ; Status DC Succinylcholine Chloride (Anectine) 200 mg STK-MED ONCE .ROUTE ; Start 09/25/16 at 14:20; Stop 09/25/16 at 14:21; Status DC Fentanyl Citrate (Fentanyl 2ml Vial) 100 mcg STK-MED ONCE .ROUTE ; Start at 14:54; Stop 09/25/16 at 14:55; Status DC Enoxaparin Sodium (Lovenox 40mg Syringe) 40 mg Q24H SQ ; Start 09/25/16 at 18:00 ; Stop 09/26/16 at 11:03; Status DC Sodium Chloride (Normal Saline Flush) 3 ml QSHIFT PRN IV AFTER MEDS AND BLOOD DRAWS; Start 09/25/16 at 16:30 Ringer's Solution 1,000 ml @ 100 mls/hr Q10H IV ; Start 09/25/16 at 16:25; Stop 09/25/16 at 23:51; Status DC Naloxone HCl (Narcan) 0.4 mg PRN Q2MIN PRN IV SEE INSTRUCTIONS; Start 09/25/16 at 16:30 Sodium Chloride 1,000 ml @ 25 mls/hr Q24H IV Last administered on 09/28/16 16 :00; Start 09/25/16 at 16:25 Hydromorphone HCl 30 ml @ 0 mls/hr CONT PRN PRN IV PROTOCOL Last administered on 09/28/16 01:09; Start 09/25/16 at 16:30 Ondansetron HCl (Zofran) 4 mg PRN Q6HRS PRN IV NAUESA, 1ST CHOICE Last administered on 09/28/16 07:20; Start 09/25/16 at 16:30 Fentanyl Citrate (Fentanyl 2ml Vial) 100 mcg STK-MED ONCE .ROUTE ; Start at 17:14; Stop 09/25/16 at 17:15; Status DC Acetaminophen (Tylenol) 325 mg PRN Q6HRS PRN [place] fever >100.4 Last administered on 09/28/16 19:28; Start 09/26/16 at 14:30 Bisacodyl (Dulcolax Supp) 10 mg PRN DAILY PRN [place] CONSTIPATION; Start 09/26/16 at 14:30 Famotidine (Pepcid) 20 mg BID IVP Last administered on 09/29/16 09:04; Start 09/26/16 at 21:00 Insulin Aspart (NovoLOG) 0-5 UNITS TIDWMEALS SQ Last administered on 09/29/16 12:19; Start 09/26/16 at 17:00 Dextrose (Dextrose 50%-Water Syringe) 12.5 gm PRN Q15MIN PRN IV SEE COMMENTS; Start 09/26/16 at 15:00 Saliva Substitute (Biotene Moisturizing Mouth) 2 spray PRN Q15MIN PRN PO DRY MOUTH Last administered on 09/28/16t 22:06; Start 09/28/16 at 14:00 Active Scripts Active Senna S Tablet (Sennosides/Docusate Sodium) 1 Each Tablet 1 Each PO DAILY Reported Lexapro (Escitalopram Oxalate) 20 Mg Tablet 1 Tab PO DAILY Lisinopril-Hctz 20-12.5 Mg Tab (Lisinopril/Hydrochlorothiazide) 1 Each Tablet 1 Tab PO DAILY Lipitor (Atorvastatin Calcium) 20 Mg Tablet 20 Mg PO HS Ambien (Zolpidem Tartrate) 5 Mg Tablet 1 Tab PO QHS Lyrica (Pregabalin) 150 Mg Capsule 150 Mg PO BID 30 Days Buspirone Hcl 10 Mg Tablet 10 Mg PO BID Aspir 81 (Aspirin) 81 Mg Tablet. 1 Tab PO DAILY Vitals/I & O Vital Sign - Last 24 Hours 09/28/16 09/28/16 09/28/16 09/28/16 15:00 19:00 19:00 19:25 Temp 97.1 98.1 101.1 97.1 98.1 101.1 Pulse 106 92 Resp 20 18 B/P (MAP) 121/65 (83) 129/68 (88) Pulse Ox 99 98 O2 Delivery Nasal Cannula Nasal Cannula Nasal Cannula O2 Flow Rate 2.0 2.0 2.0 09/28/16 09/28/16 09/28/16 09/29/16 20:00 20:30 23:03 03:00 Temp 98.1 97.9 97.7 98.1 97.9 97.7 Pulse 91 89 Resp 17 18 16 B/P (MAP) 138/77 (97) 125/61 (82) Pulse Ox 98 98 100 O2 Delivery Nasal Cannula Nasal Cannula Nasal Cannula O2 Flow Rate 2.0 2.0 2.0 09/29/16 09/29/16 09/29/16 07:00 08:00 10:41 Temp 97.9 100.4 97.9 100.4 Pulse 100 108 Resp 17 B/P (MAP) 119/66 (83) 156/63 (94) Pulse Ox 99 98 O2 Delivery Room Air Nasal Cannula Room Air O2 Flow Rate 2.0 Intake and Output 09/28/16 09/28/16 09/29/16 14:59 22:59 06:59 Intake Total 1064.2 ml 2413.63 ml Output Total 250 ml 200 ml 825 ml Balance -250 ml 864.2 ml 1588.63 ml JAIRON OSMAN MD Sep 29, 2016 14:01
--- NOTE | 2016-09-29 14:36 | PDOC ---
PROGRESS NOTES Chief Complaint Chief Complaint Abdominal pain, recurrent SBO ASSESSMENT AND PLAN: 1. SBO: s/p ex lap on 09/25: abdominal wall mass, metastatic adenocarcinoma , ascites; small bowel obstruction secondary to adhesion involving the lower abdominal incision/malignancy, ascites, extensive miliary disease in the lower abdomen and pelvis 2. Pain control: Dilaudid [employer], to continue, pain persists, 3. Nutrition: on PPN for now. no flatus, cont NPO 4. HTN/HLD: well controlled; hydralazine IV PRN 5. CAD: hx CABG. stable 6. DM2: sl worse since surgery. monitor with ISS 7. Hypokalemia/hyperkalemia 8. Hyponatremia: plan: fu with sx, on clear liquid now PPN fu with gi IF CONT low Na AND HIGH k Tmr , will dc PPN ALSO ON NS now [employer] for pain control dvt, gi ppx NS 1 L repletion. History of Present Illness History of Present Illness has flatus, no BM abd pain 10/19 , on [employer], but not using much low na high K T 101 Vitals Vitals Vital Signs Date Time Temp Pulse Resp B/P (MAP) Pulse Ox O2 Delivery O2 Flow Rate FiO2 09/29/16 10:41 100.4 108 17 156/63 (94) 98 Room Air 100.4 09/29/16 08:00 2.0 Physical Exam General: Alert, Oriented X3 Heart: Normal S1, Normal S2 Lungs: Clear, Other (no r/r/w) Abdomen: Soft, Other (some TTP, has G tube with gravity, decreased BS) Extremities: No edema Skin: No rashes, No breakdown Labs LABS Laboratory Tests Test 09/28/16 16:43 09/28/16 21:22 09/29/16 06:45 09/29/16 07:10 Glucose (Fingerstick) 184 mg/dL (70-99) 197 mg/dL (70-99) 169 mg/dL (70-99) White Blood Count 11.7 x10^3/uL (4.0-11.0) Red Blood Count 3.04 x10^6/uL (3.50-5.40) Hemoglobin 9.7 g/dL (12.0-15.5) Hematocrit 29.0 % (36.0-47.0) Mean Corpuscular Volume 95 fL (79-100) Mean Corpuscular Hemoglobin 32 pg (25-35) Mean Corpuscular Hemoglobin Concent 33 g/dL (31-37) Red Cell Distribution Width 14.9 % (11.5-14.5) Platelet Count 208 x10^3/uL (140-400) Neutrophils (%) (Auto) 85 % (31-73) Lymphocytes (%) (Auto) 7 % (24-48) Monocytes (%) (Auto) 8 % (0-9) Eosinophils (%) (Auto) 0 % (0-3) Basophils (%) (Auto) 0 % (0-3) Neutrophils # (Auto) 9.9 x10^3uL (1.8-7.7) Lymphocytes # (Auto) 0.8 x10^3/uL (1.0-4.8) Monocytes # (Auto) 0.9 x10^3/uL (0.0-1.1) Eosinophils # (Auto) 0.0 x10^3/uL (0.0-0.7) Basophils # (Auto) 0.0 x10^3/uL (0.0-0.2) Sodium Level 123 mmol/L (136-145) Potassium Level 5.9 mmol/L (3.5-5.1) Chloride Level 92 mmol/L (98-107) Carbon Dioxide Level 25 mmol/L (21-32) Anion Gap 6 (6-14) Blood Urea Nitrogen 14 mg/dL (7-20) Creatinine 0.7 mg/dL (0.6-1.0) Estimated GFR (Cockcroft-Gault) 98.7 BUN/Creatinine Ratio 20 (6-20) Glucose Level 176 mg/dL (70-99) Calcium Level 7.9 mg/dL (8.5-10.1) Magnesium Level 2.5 mg/dL (1.8-2.4) Total Bilirubin 0.8 mg/dL (0.2-1.0) Aspartate Amino Transf (AST/SGOT) 35 U/L (15-37) Alanine Aminotransferase (ALT/SGPT) 33 U/L (14-59) Alkaline Phosphatase 100 U/L (46-116) Total Protein 6.0 g/dL (6.4-8.2) Albumin 1.5 g/dL (3.4-5.0) Albumin/Globulin Ratio 0.3 (1.0-1.7) Test 09/29/16 11:19 Glucose (Fingerstick) 199 mg/dL (70-99) Review of Systems Review of Systems no chills, sob or chest pain Assessment and Plan Assessmemt and Plan Problems Medical Problems: (1) Abdominal pain Status: Acute (2) Nausea and vomiting Status: Acute Problems: Comment Review of Relevant I have reviewed the following items anita (where applicable) has been applied. Labs Laboratory Tests Test 09/27/16 16:51 09/27/16 20:54 09/28/16 06:40 09/28/16 07:27 Glucose (Fingerstick) 179 mg/dL (70-99) 196 mg/dL (70-99) 175 mg/dL (70-99) White Blood Count 12.9 x10^3/uL (4.0-11.0) Red Blood Count 3.33 x10^6/uL (3.50-5.40) Hemoglobin 10.5 g/dL (12.0-15.5) Hematocrit 31.5 % (36.0-47.0) Mean Corpuscular Volume 95 fL (79-100) Mean Corpuscular Hemoglobin 32 pg (25-35) Mean Corpuscular Hemoglobin Concent 33 g/dL (31-37) Red Cell Distribution Width 14.6 % (11.5-14.5) Platelet Count 234 x10^3/uL (140-400) Neutrophils (%) (Auto) 83 % (31-73) Lymphocytes (%) (Auto) 8 % (24-48) Monocytes (%) (Auto) 9 % (0-9) Eosinophils (%) (Auto) 0 % (0-3) Basophils (%) (Auto) 0 % (0-3) Neutrophils # (Auto) 10.7 x10^3uL (1.8-7.7) Lymphocytes # (Auto) 1.0 x10^3/uL (1.0-4.8) Monocytes # (Auto) 1.1 x10^3/uL (0.0-1.1) Eosinophils # (Auto) 0.0 x10^3/uL (0.0-0.7) Basophils # (Auto) 0.0 x10^3/uL (0.0-0.2) Sodium Level 131 mmol/L (136-145) Potassium Level 4.7 mmol/L (3.5-5.1) Chloride Level 98 mmol/L (98-107) Carbon Dioxide Level 26 mmol/L (21-32) Anion Gap 7 (6-14) Blood Urea Nitrogen 18 mg/dL (7-20) Creatinine 0.7 mg/dL (0.6-1.0) Estimated GFR (Cockcroft-Gault) 98.7 BUN/Creatinine Ratio 26 (6-20) Glucose Level 184 mg/dL (70-99) Calcium Level 8.4 mg/dL (8.5-10.1) Magnesium Level 2.2 mg/dL (1.8-2.4) Total Bilirubin 0.4 mg/dL (0.2-1.0) Aspartate Amino Transf (AST/SGOT) 18 U/L (15-37) Alanine Aminotransferase (ALT/SGPT) 16 U/L (14-59) Alkaline Phosphatase 75 U/L (46-116) Total Protein 6.6 g/dL (6.4-8.2) Albumin 1.8 g/dL (3.4-5.0) Albumin/Globulin Ratio 0.4 (1.0-1.7) Test 09/28/16 11:18 09/28/16 16:43 09/28/16 21:22 09/29/16 06:45 Glucose (Fingerstick) 159 mg/dL (70-99) 184 mg/dL (70-99) 197 mg/dL (70-99) White Blood Count 11.7 x10^3/uL (4.0-11.0) Red Blood Count 3.04 x10^6/uL (3.50-5.40) Hemoglobin 9.7 g/dL (12.0-15.5) Hematocrit 29.0 % (36.0-47.0) Mean Corpuscular Volume 95 fL (79-100) Mean Corpuscular Hemoglobin 32 pg (25-35) Mean Corpuscular Hemoglobin Concent 33 g/dL (31-37) Red Cell Distribution Width 14.9 % (11.5-14.5) Platelet Count 208 x10^3/uL (140-400) Neutrophils (%) (Auto) 85 % (31-73) Lymphocytes (%) (Auto) 7 % (24-48) Monocytes (%) (Auto) 8 % (0-9) Eosinophils (%) (Auto) 0 % (0-3) Basophils (%) (Auto) 0 % (0-3) Neutrophils # (Auto) 9.9 x10^3uL (1.8-7.7) Lymphocytes # (Auto) 0.8 x10^3/uL (1.0-4.8) Monocytes # (Auto) 0.9 x10^3/uL (0.0-1.1) Eosinophils # (Auto) 0.0 x10^3/uL (0.0-0.7) Basophils # (Auto) 0.0 x10^3/uL (0.0-0.2) Sodium Level 123 mmol/L (136-145) Potassium Level 5.9 mmol/L (3.5-5.1) Chloride Level 92 mmol/L (98-107) Carbon Dioxide Level 25 mmol/L (21-32) Anion Gap 6 (6-14) Blood Urea Nitrogen 14 mg/dL (7-20) Creatinine 0.7 mg/dL (0.6-1.0) Estimated GFR (Cockcroft-Gault) 98.7 BUN/Creatinine Ratio 20 (6-20) Glucose Level 176 mg/dL (70-99) Calcium Level 7.9 mg/dL (8.5-10.1) Magnesium Level 2.5 mg/dL (1.8-2.4) Total Bilirubin 0.8 mg/dL (0.2-1.0) Aspartate Amino Transf (AST/SGOT) 35 U/L (15-37) Alanine Aminotransferase (ALT/SGPT) 33 U/L (14-59) Alkaline Phosphatase 100 U/L (46-116) Total Protein 6.0 g/dL (6.4-8.2) Albumin 1.5 g/dL (3.4-5.0) Albumin/Globulin Ratio 0.3 (1.0-1.7) Test 09/29/16 07:10 09/29/16 11:19 Glucose (Fingerstick) 169 mg/dL (70-99) 199 mg/dL (70-99) Laboratory Tests Test 09/28/16 16:43 09/28/16 21:22 09/29/16 06:45 09/29/16 07:10 Glucose (Fingerstick) 184 mg/dL (70-99) 197 mg/dL (70-99) 169 mg/dL (70-99) White Blood Count 11.7 x10^3/uL (4.0-11.0) Red Blood Count 3.04 x10^6/uL (3.50-5.40) Hemoglobin 9.7 g/dL (12.0-15.5) Hematocrit 29.0 % (36.0-47.0) Mean Corpuscular Volume 95 fL (79-100) Mean Corpuscular Hemoglobin 32 pg (25-35) Mean Corpuscular Hemoglobin Concent 33 g/dL (31-37) Red Cell Distribution Width 14.9 % (11.5-14.5) Platelet Count 208 x10^3/uL (140-400) Neutrophils (%) (Auto) 85 % (31-73) Lymphocytes (%) (Auto) 7 % (24-48) Monocytes (%) (Auto) 8 % (0-9) Eosinophils (%) (Auto) 0 % (0-3) Basophils (%) (Auto) 0 % (0-3) Neutrophils # (Auto) 9.9 x10^3uL (1.8-7.7) Lymphocytes # (Auto) 0.8 x10^3/uL (1.0-4.8) Monocytes # (Auto) 0.9 x10^3/uL (0.0-1.1) Eosinophils # (Auto) 0.0 x10^3/uL (0.0-0.7) Basophils # (Auto) 0.0 x10^3/uL (0.0-0.2) Sodium Level 123 mmol/L (136-145) Potassium Level 5.9 mmol/L (3.5-5.1) Chloride Level 92 mmol/L (98-107) Carbon Dioxide Level 25 mmol/L (21-32) Anion Gap 6 (6-14) Blood Urea Nitrogen 14 mg/dL (7-20) Creatinine 0.7 mg/dL (0.6-1.0) Estimated GFR (Cockcroft-Gault) 98.7 BUN/Creatinine Ratio 20 (6-20) Glucose Level 176 mg/dL (70-99) Calcium Level 7.9 mg/dL (8.5-10.1) Magnesium Level 2.5 mg/dL (1.8-2.4) Total Bilirubin 0.8 mg/dL (0.2-1.0) Aspartate Amino Transf (AST/SGOT) 35 U/L (15-37) Alanine Aminotransferase (ALT/SGPT) 33 U/L (14-59) Alkaline Phosphatase 100 U/L (46-116) Total Protein 6.0 g/dL (6.4-8.2) Albumin 1.5 g/dL (3.4-5.0) Albumin/Globulin Ratio 0.3 (1.0-1.7) Test 09/29/16 11:19 Glucose (Fingerstick) 199 mg/dL (70-99) Medications Current Medications Ondansetron HCl (Zofran) 4 mg PRN Q8HRS PRN IV NAUSEA/VOMITING Last administered on 09/19/16 02:59; Start 09/18/16 at 22:45; Stop 09/19/16 at 22:44 ; Status DC Fentanyl Citrate (Fentanyl 2ml Vial) 50 mcg PRN Q2HR PRN IV PAIN Last administered on 09/19/16 08:14; Start 09/18/16 at 22:45; Stop 09/19/16 at 22:44 ; Status DC Sodium Chloride 1,000 ml @ 125 mls/hr Q8H IV Last administered on 09/19/16 11 :01; Start 09/18/16 at 22:45; Stop 09/19/16 at 22:44; Status DC Hydralazine HCl (Apresoline) 10 mg PRN Q4HRS PRN IVP ELEVATED BP, SEE COMMENTS Last administered on 09/19/16 01:55; Start 09/19/16 at 01:45; Stop 09/19/16 at 12:24; Status DC Potassium Chloride 30 meq/ Sodium Chloride 1,015 ml @ 125 mls/hr 1X ONCE IV Last administered on 09/19/16 03:07; Start 09/19/16 at 01:45; Stop 09/19/16 at 09:52; Status DC Al Hydroxide/Mg Hydroxide (Mylanta Plus Xs) 15 ml 1X ONCE PO Last administered on 09/19/16 05:50; Start 09/19/16 at 06:00; Stop 09/19/16 at 06:01 ; Status DC Famotidine (Pepcid) 20 mg BID IVP Last administered on 09/24/16 09:01; Start 09/19/16 at 09:00; Stop 09/24/16 at 13:12; Status DC Acetaminophen (Tylenol) 650 mg PRN Q6HRS PRN PO FEVER Last administered on 09/25 08:43; Start 09/19/16 at 09:30; Stop 09/26/16 at 14:20; Status DC Ondansetron HCl (Zofran) 4 mg PRN Q6HRS PRN IV NAUSEA/VOMITING Last administered on 09/25/16 05:35; Start 09/19/16 at 09:30; Stop 09/27/16 at 12:26 ; Status DC Morphine Sulfate 2 mg PRN Q2HR PRN IV PAIN; Start 09/19/16 at 09:30; Stop 09/19 at 09:56; Status DC Tramadol HCl (Ultram) 50 mg PRN Q6HRS PRN PO PAIN Last administered on 09:49; Start 09/19/16 at 09:30; Stop 09/26/16 at 14:20; Status DC Hydralazine HCl (Apresoline) 10 mg PRN Q4HRS PRN IVP ELEVATED BP, SEE COMMENTS Last administered on 09/25/16 17:24; Start 09/19/16 at 09:30 Docusate Sodium (Colace) 100 mg PRN DAILY PRN PO CONSTIPATION Last administered on 09/25/16 08:43; Start 09/19/16 at 09:30; Stop 09/26/16 at 14:20 ; Status DC Barium Sulfate (Liquid E-Z Paque) 355 ml 1X ONCE PO ; Start 09/19/16 at 10:00; Stop 09/19/16 at 10:01; Status DC Barium Sulfate (Liquid E-Z Paque) 355 ml 1X ONCE PO ; Start 09/19/16 at 10:00; Stop 09/19/16 at 10:01; Status DC Morphine Sulfate 2 mg PRN Q2HR PRN IV PAIN Last administered on 09/24/16 09:09 ; Start 09/19/16 at 10:00; Stop 09/24/16 at 13:12; Status DC Throat Lozenges (Chloraseptic) 1 spray PRN Q2HR PRN PO SORE THROAT Last administered on 09/19/16 11:01; Start 09/19/16 at 10:15 Potassium Chloride/Sodium Chloride 1,000 ml @ 100 mls/hr Q10H IV Last administered on 09/20/16 01:57; Start 09/19/16 at 12:30; Stop 09/20/16 at 08:19 ; Status DC Heparin Sodium (Porcine) (Heparin Sq) 5,000 unit Q8HRS SQ Last administered on 09/29/16 14:08; Start 09/19/16 at 14:00 Amino Acids/ Glycerin/ Electrolytes 1,000 ml @ 75 mls/hr [id number] IV Last administered on 09/29/16 06:09; Start 09/20/16 at 08:30 Dextrose (Dextrose 50%-Water Syringe) 25 gm PRN Q15MIN PRN IV SEE COMMENTS Last administered on 09/20/16 11:52; Start 09/20/16 at 11:45; Stop 09/29/16 at 13:46; Status DC Iohexol (Omnipaque 350 Mg/ml) 400 ml 1X ONCE PO Last administered on 12:37; Start 09/20/16 at 12:15; Stop 09/20/16 at 12:16; Status DC Levofloxacin/ Dextrose 100 ml @ 100 mls/hr 1X PREOP PRN IV PRIOR TO PROCEDURE ; Start 09/21/16 at 17:30; Stop 09/22/16 at 18:00; Status DC Ondansetron HCl (Zofran) 4 mg PRN Q6HRS PRN IV NAUSEA/VOMITING; Start 09/22/16 at 07:45; Stop 09/23/16 at 07:44; Status DC Fentanyl Citrate (Fentanyl 2ml Vial) 25 mcg PRN Q5MIN PRN IV MILD PAIN; Start 09/22/16 at 07:45; Stop 09/23/16 at 07:44; Status DC Fentanyl Citrate (Fentanyl 2ml Vial) 50 mcg PRN Q5MIN PRN IV MODERATE PAIN; Start 09/22/16 at 07:45; Stop 09/23/16 at 07:44; Status DC Morphine Sulfate 1 mg PRN Q10MIN PRN IV SEVERE PAIN; Start 09/22/16 at 07:45; Stop 09/23/16 at 07:44; Status DC Ringer's Solution 1,000 ml @ 30 mls/hr Q24H IV ; Start 09/22/16 at 07:45; Stop 09/22/16 at 19:44; Status DC Lidocaine HCl 2 ml PRN 1X PRN ID PRIOR TO IV START; Start 09/22/16 at 07:45; Stop 09/23/16 at 07:44; Status DC Hydromorphone HCl (Dilaudid) 0.5 mg PRN Q10MIN PRN IV SEV PAIN, Second choice; Start 09/22/16 at 07:45; Stop 09/23/16 at 07:44; Status DC Prochlorperazine Edisylate (Compazine) 5 mg PACU PRN PRN IV NAUSEA, MRX1; Start 09/22/16 at 07:45; Stop 09/23/16 at 07:44; Status DC Lorazepam (Ativan) 0.5 mg 1X ONCE IV Last administered on 09/22/16 12:08; Start 09/22/16 at 12:00; Stop 09/22/16 at 12:03; Status DC Pantoprazole Sodium (Protonix) 40 mg DAILYAC PO Last administered on 09/25/16 08:43; Start 09/24/16 at 13:15; Stop 09/26/16 at 14:20; Status DC Levofloxacin/ Dextrose 100 ml @ 100 mls/hr 1X PREOP ONCE IV Last administered on 09/25/16 13:32; Start 09/25/16 at 13:30; Stop 09/25/16 at 14:29 ; Status DC Sevoflurane (Ultane) 60 ml STK-MED ONCE IH ; Start 09/25/16 at 13:40; Stop 09/25 at 13:53; Status DC Fentanyl Citrate (Fentanyl 2ml Vial) 100 mcg STK-MED ONCE .ROUTE ; Start at 13:41; Stop 09/25/16 at 13:53; Status DC Glycopyrrolate (Robinul) 1 mg STK-MED ONCE .ROUTE ; Start 09/25/16 at 13:41; Stop 09/25/16 at 13:53; Status DC Propofol 20 ml @ As Directed STK-MED ONCE IV ; Start 09/25/16 at 13:41; Stop at 13:53; Status DC Ondansetron HCl (Zofran) 4 mg STK-MED ONCE .ROUTE ; Start 09/25/16 at 13:42; Stop 09/25/16 at 13:53; Status DC Dexamethasone Sodium Phosphate (Decadron) 20 mg STK-MED ONCE .ROUTE ; Start at 13:42; Stop 09/25/16 at 13:53; Status DC Lidocaine HCl (Lidocaine Pf 2% Vial) 5 ml STK-MED ONCE .ROUTE ; Start 09/25/16 at 13:42; Stop 09/25/16 at 13:53; Status DC Ondansetron HCl (Zofran) 4 mg PRN Q6HRS PRN IV NAUSEA/VOMITING; Start 09/25/16 at 14:00; Stop 09/26/16 at 13:59; Status DC Fentanyl Citrate (Fentanyl 2ml Vial) 25 mcg PRN Q5MIN PRN IV MILD PAIN; Start 09/25/16 at 14:00; Stop 09/26/16 at 13:59; Status DC Fentanyl Citrate (Fentanyl 2ml Vial) 50 mcg PRN Q5MIN PRN IV MODERATE PAIN Last administered on 09/25/16t 17:31; Start 09/25/16 at 14:00; Stop 09/26/16 at 13:59; Status DC Morphine Sulfate 1 mg PRN Q10MIN PRN IV SEVERE PAIN; Start 09/25/16 at 14:00; Stop 09/26/16 at 13:59; Status DC Ringer's Solution 1,000 ml @ 0 mls/hr Q0M IV ; Start 09/25/16 at 13:53; Stop at 01:52; Status DC Lidocaine HCl 2 ml PRN 1X PRN ID PRIOR TO IV START; Start 09/25/16 at 14:00; Stop 09/26/16 at 13:59; Status DC Hydromorphone HCl (Dilaudid) 0.5 mg PRN Q10MIN PRN IV SEV PAIN, Second choice; Start 09/25/16 at 14:00; Stop 09/26/16 at 13:59; Status DC Prochlorperazine Edisylate (Compazine) 5 mg PACU PRN PRN IV NAUSEA, MRX1; Start 09/25/16 at 14:00; Stop 09/26/16 at 13:59; Status DC Fentanyl Citrate (Fentanyl 2ml Vial) 100 mcg STK-MED ONCE .ROUTE ; Start at 14:08; Stop 09/25/16 at 14:09; Status DC Ringer's Solution 1,000 ml @ 125 mls/hr Q8H IV ; Start 09/25/16 at 14:09; Stop 09/26/16 at 02:08; Status DC Fentanyl Citrate (Fentanyl 2ml Vial) 50 mcg PRN Q5MIN PRN IV pain Last administered on 09/25/16 14:15; Start 09/25/16 at 14:15; Stop 09/26/16 at 14:20 ; Status DC Succinylcholine Chloride (Anectine) 200 mg STK-MED ONCE .ROUTE ; Start 09/25/16 at 14:20; Stop 09/25/16 at 14:21; Status DC Fentanyl Citrate (Fentanyl 2ml Vial) 100 mcg STK-MED ONCE .ROUTE ; Start at 14:54; Stop 09/25/16 at 14:55; Status DC Enoxaparin Sodium (Lovenox 40mg Syringe) 40 mg Q24H SQ ; Start 09/25/16 at 18:00 ; Stop 09/26/16 at 11:03; Status DC Sodium Chloride (Normal Saline Flush) 3 ml QSHIFT PRN IV AFTER MEDS AND BLOOD DRAWS; Start 09/25/16 at 16:30 Ringer's Solution 1,000 ml @ 100 mls/hr Q10H IV ; Start 09/25/16 at 16:25; Stop 09/25/16 at 23:51; Status DC Naloxone HCl (Narcan) 0.4 mg PRN Q2MIN PRN IV SEE INSTRUCTIONS; Start 09/25/16 at 16:30 Sodium Chloride 1,000 ml @ 25 mls/hr Q24H IV Last administered on 09/28/16 16 :00; Start 09/25/16 at 16:25 Hydromorphone HCl 30 ml @ 0 mls/hr CONT PRN PRN IV PROTOCOL Last administered on 09/28/16 01:09; Start 09/25/16 at 16:30 Ondansetron HCl (Zofran) 4 mg PRN Q6HRS PRN IV NAUESA, 1ST CHOICE Last administered on 09/28/16 07:20; Start 09/25/16 at 16:30 Fentanyl Citrate (Fentanyl 2ml Vial) 100 mcg STK-MED ONCE .ROUTE ; Start at 17:14; Stop 09/25/16 at 17:15; Status DC Acetaminophen (Tylenol) 325 mg PRN Q6HRS PRN CA fever >100.4 Last administered on 09/28/16 19:28; Start 09/26/16 at 14:30 Bisacodyl (Dulcolax Supp) 10 mg PRN DAILY PRN CA CONSTIPATION; Start 09/26/16 at 14:30 Famotidine (Pepcid) 20 mg BID IVP Last administered on 09/29/16 09:04; Start 09/26/16 at 21:00 Insulin Aspart (NovoLOG) 0-5 UNITS TIDWMEALS SQ Last administered on 09/29/16 12:19; Start 09/26/16 at 17:00 Dextrose (Dextrose 50%-Water Syringe) 12.5 gm PRN Q15MIN PRN IV SEE COMMENTS; Start 09/26/16 at 15:00 Saliva Substitute (Biotene Moisturizing Mouth) 2 spray PRN Q15MIN PRN PO DRY MOUTH Last administered on 09/28/16 22:06; Start 09/28/16 at 14:00 Active Scripts Active Senna S Tablet (Sennosides/Docusate Sodium) 1 Each Tablet 1 Each PO DAILY Reported Lexapro (Escitalopram Oxalate) 20 Mg Tablet 1 Tab PO DAILY Lisinopril-Hctz 20-12.5 Mg Tab (Lisinopril/Hydrochlorothiazide) 1 Each Tablet 1 Tab PO DAILY Lipitor (Atorvastatin Calcium) 20 Mg Tablet 20 Mg PO HS Ambien (Zolpidem Tartrate) 5 Mg Tablet 1 Tab PO QHS Lyrica (Pregabalin) 150 Mg Capsule 150 Mg PO BID 30 Days Buspirone Hcl 10 Mg Tablet 10 Mg PO BID Aspir 81 (Aspirin) 81 Mg Tablet. 1 Tab PO DAILY Vitals/I & O Vital Sign - Last 24 Hours 09/28/16 09/28/16 09/28/16 09/28/16 15:00 19:00 19:00 19:25 Temp 97.1 98.1 101.1 97.1 98.1 101.1 Pulse 106 92 Resp 18 B/P (MAP) 121/65 (83) 129/68 (88) Pulse Ox 99 98 O2 Delivery Nasal Cannula Nasal Cannula Nasal Cannula O2 Flow Rate 2.0 2.0 2.0 09/28/16 09/28/16 09/28/16 09/29/16 20:00 20:30 23:03 03:00 Temp 98.1 97.9 97.7 98.1 97.9 97.7 Pulse 91 89 Resp 17 18 16 B/P (MAP) 138/77 (97) 125/61 (82) Pulse Ox 98 98 100 O2 Delivery Nasal Cannula Nasal Cannula Nasal Cannula O2 Flow Rate 2.0 2.0 2.0 09/29/16 09/29/16 09/29/16 07:00 08:00 10:41 Temp 97.9 100.4 97.9 100.4 Pulse 100 108 Resp B/P (MAP) 119/66 (83) 156/63 (94) Pulse Ox 99 98 O2 Delivery Room Air Nasal Cannula Room Air O2 Flow Rate 2.0 Intake and Output 09/28/16 09/28/16 09/29/16 15:00 23:00 07:00 Intake Total 1064.2 ml 2413.63 ml Output Total 250 ml 200 ml 825 ml Balance -250 ml 864.2 ml 1588.63 ml SELVIN PIMENTEL MD Sep 29, 2016 14:36
[2016-09-29 14:43] VITALS: BP 135/71
[2016-09-29] MEDS ORDERED: IV NORMAL SALINE 1000ML BAG 1,000 ML IV ONE (14:45)
[2016-09-29] MEDS: IV NORMAL SALINE 1000ML BAG 1,000 ML IV SCH (16:25)
--- NOTE | 2016-09-29 16:43 | CARD ---
APPROVED REPORT EXAM: Two-dimensional and M-mode echocardiogram with Doppler and color Doppler. Other Information Quality : Good INDICATION Murmur Surgery/Intervention CABG: Date: 2004 2D DIMENSIONS RVDd2.6 (2.9-3.5cm)Left Atrium(2D)4.4 (1.6-4.0cm) IVSd1.0 (0.7-1.1cm)Aortic Root(2D)2.5 (2.0-3.7cm) LVDd4.7 (3.9-5.9cm)LVOT Diameter1.9 (1.8-2.4cm) PWd1.1 (0.7-1.1cm)LVDs3.2 (2.5-4.0cm) FS (%) 32.6 %SV63.1 ml LVEF(%)60.0 (>50%) Aortic Valve AoV Peak Russell.367.3cm/sAoV VTI73.9cm AO Peak GR.54.0mmHgLVOT VTI 20.13cm AO Mean GR.32mmHgAVA (VTI)0.80cm2 Mitral Valve MV E Vqliexcm50.8cm/sMV DECEL [id number] MV A Wokhsaab208.9cm/sE/A Ratio0.6 TDI Lateral E' P. V10.30cm/sMedial E' P. V4.57cm/s E/Lateral E'7.5E/Medial E'16.8 Tricuspid Valve TR P. Yywdrvir061pl/sRAP [id number] TR Peak Gr.[id number] Pulmonary Vein S1 Qpxoqgsk74.9cm/sS2 Mfnenhjh97.47cm/s D2 Ueumentt14.5cm/sPVa [id number] LEFT VENTRICLE The left ventricle is normal size. There is normal left ventricular wall thickness. The left ventricu lar systolic function is normal and the ejection fraction is within normal range. The Ejection Fracti on is 60-65%. Segmental wall motion difficult to assess due to poor image quality. Grossly normal wal l motion. Transmitral Doppler flow pattern is Grade I-abnormal relaxation pattern. RIGHT VENTRICLE The right ventricle is normal size. The right ventricular systolic function is normal. ATRIA The left atrium is mildly dilated. The right atrium size is normal. The interatrial septum is intact with no evidence for an atrial septal defect or patent foramen ovale as noted on 2-D or Doppler imagi ng. AORTIC VALVE The aortic valve is heavily calcified and displays decreased opening. Doppler and Color Flow revealed trace aortic regurgitation. Calculated aortic valve area is 0.8 cm2 with maximum pressure gradient o f 54 mmHg and mean pressure gradient of 32 mmHg. Doppler and color-flow analysis revealed severe aort ic stenosis. MITRAL VALVE The mitral valve is calcified but opens well. There is no evidence of mitral valve prolapse. There is no mitral valve stenosis. Doppler and Color Flow revealed no mitral valve regurgitation noted. TRICUSPID VALVE The tricuspid valve is normal in structure and function. Doppler and Color Flow revealed trace tricus pid regurgitation. There is moderate pulmonary hypertension. The PA pressure was estimated at 52 mmHg . There is no tricuspid valve stenosis. PULMONIC VALVE Doppler and Color Flow revealed trace pulmonic valvular regurgitation. There is no pulmonic valvular stenosis. GREAT VESSELS The aortic root is normal in size. The ascending aorta is not well seen. The IVC was not visualized. PERICARDIAL EFFUSION There is no evidence of significant pericardial effusion. Critical Notification Critical Value: No <Conclusion> The left ventricular systolic function is normal and the ejection fraction is within normal range. T he Ejection Fraction is 60-65%. Segmental wall motion difficult to assess due to poor image quality. Grossly normal wall motion. Calculated aortic valve area is 0.8 cm2 with maximum pressure gradient of 54 mmHg and mean pressure g radient of 32 mmHg. Doppler and color-flow analysis revealed severe aortic stenosis. Doppler and Color Flow revealed trace tricuspid regurgitation. There is moderate pulmonary hypertensi on. The PA pressure was estimated at 52 mmHg.
[2016-09-29 19:00] VITALS: BP 145/79
[2016-09-29 23:00] VITALS: BP 143/77
[2016-09-30 03:00] VITALS: BP 130/61
[2016-09-30 05:52] LABS: BASO % 0 % (0-3); EOS % 0 % (0-3); HEMATOCRIT 30.4 % (36.0-47.0); HEMOGLOBIN 10.3 g/dL (12.0-15.5); LYMPH # 1.1 x10^3/uL (1.0-4.8); LYMPH % 11 % (24-48); MEAN CORPUSCULAR HEMOGLOBIN 32 pg (25-35); MEAN CORPUSCULAR HGB CONC 34 g/dL (31-37); MEAN CORPUSCULAR VOLUME 94 fL (79-100); MONO % 11 % (0-9); NEUT % 78 % (31-73); PLATELET COUNT 205 x10^3/uL (140-400); RED BLOOD COUNT 3.24 x10^6/uL (3.50-5.40); RED CELL DISTRIBUTION WIDTH 14.7 % (11.5-14.5); WHITE BLOOD COUNT 10.1 x10^3/uL (4.0-11.0)
[2016-09-30] MEDS: HEPARIN PF for SUB-Q USE 5,000 UNIT/0.5 ML VIAL. SQ SCH ×3 (05:55→20:18)
[2016-09-30 05:56] LABS: ALBUMIN 1.6 g/dL (3.4-5.0); ALBUMIN/GLOBULIN RATIO 0.3 (1.0-1.7); CALCIUM 8.1 mg/dL (8.5-10.1); CREATININE 0.8 mg/dL (0.6-1.0); GFR 84.6; MAGNESIUM 2.1 mg/dL (1.8-2.4); POTASSIUM 4.3 mmol/L (3.5-5.1); TOTAL BILIRUBIN 0.8 mg/dL (0.2-1.0); TOTAL PROTEIN 6.5 g/dL (6.4-8.2)
[2016-09-30 07:00] VITALS: BP 127/57
[2016-09-30] MEDS: INSULIN ASPART 300 UNITS/3 ML INSULN.PEN SQ SCH ×3 (08:00→17:00)
[2016-09-30] MEDS: AMINO AC 3%/ELECTROLYTE/GLYCER 1,000 ML IV SCH ×2 (08:02→22:21)
[2016-09-30] MEDS: IV NORMAL SALINE 1000ML BAG 1,000 ML IV SCH (08:02)
--- NOTE | 2016-09-30 09:58 | PDOC ---
SURGICAL PROGRESS NOTE Subjective Pt without c/o today, has not tried clears today Vital Signs Vital Signs Date Time Temp Pulse Resp B/P (MAP) Pulse Ox O2 Delivery O2 Flow Rate FiO2 09/30/16 07:45 Nasal Cannula 2.0 09/30/16 07:00 98.6 92 16 127/57 (80) 100 98.6 I&O Intake and Output 09/30/16 07:00 Intake Total 80 ml Output Total 850 ml Balance -770 ml Intake Oral 80 ml Output Urine Total 850 ml # Voids 8 General: Alert, Cooperative, No acute distress Abdomen: Soft, No tenderness, Other (dressing c/d/i, G-tube in place) Labs Laboratory Tests Test 09/28/16 11:18 09/28/16 16:43 09/28/16 21:22 09/29/16 06:45 Glucose (Fingerstick) 159 mg/dL (70-99) 184 mg/dL (70-99) 197 mg/dL (70-99) White Blood Count 11.7 x10^3/uL (4.0-11.0) Red Blood Count 3.04 x10^6/uL (3.50-5.40) Hemoglobin 9.7 g/dL (12.0-15.5) Hematocrit 29.0 % (36.0-47.0) Mean Corpuscular Volume 95 fL (79-100) Mean Corpuscular Hemoglobin 32 pg (25-35) Mean Corpuscular Hemoglobin Concent 33 g/dL (31-37) Red Cell Distribution Width 14.9 % (11.5-14.5) Platelet Count 208 x10^3/uL (140-400) Neutrophils (%) (Auto) 85 % (31-73) Lymphocytes (%) (Auto) 7 % (24-48) Monocytes (%) (Auto) 8 % (0-9) Eosinophils (%) (Auto) 0 % (0-3) Basophils (%) (Auto) 0 % (0-3) Neutrophils # (Auto) 9.9 x10^3uL (1.8-7.7) Lymphocytes # (Auto) 0.8 x10^3/uL (1.0-4.8) Monocytes # (Auto) 0.9 x10^3/uL (0.0-1.1) Eosinophils # (Auto) 0.0 x10^3/uL (0.0-0.7) Basophils # (Auto) 0.0 x10^3/uL (0.0-0.2) Sodium Level 123 mmol/L (136-145) Potassium Level 5.9 mmol/L (3.5-5.1) Chloride Level 92 mmol/L (98-107) Carbon Dioxide Level 25 mmol/L (21-32) Anion Gap 6 (6-14) Blood Urea Nitrogen 14 mg/dL (7-20) Creatinine 0.7 mg/dL (0.6-1.0) Estimated GFR (Cockcroft-Gault) 98.7 BUN/Creatinine Ratio 20 (6-20) Glucose Level 176 mg/dL (70-99) Calcium Level 7.9 mg/dL (8.5-10.1) Magnesium Level 2.5 mg/dL (1.8-2.4) Total Bilirubin 0.8 mg/dL (0.2-1.0) Aspartate Amino Transf (AST/SGOT) 35 U/L (15-37) Alanine Aminotransferase (ALT/SGPT) 33 U/L (14-59) Alkaline Phosphatase 100 U/L (46-116) Total Protein 6.0 g/dL (6.4-8.2) Albumin 1.5 g/dL (3.4-5.0) Albumin/Globulin Ratio 0.3 (1.0-1.7) Test 09/29/16 07:10 09/29/16 11:19 09/29/16 16:02 09/29/16 21:02 Glucose (Fingerstick) 169 mg/dL (70-99) 199 mg/dL (70-99) 160 mg/dL (70-99) 161 mg/dL (70-99) Test 09/30/16 05:25 09/30/16 07:26 White Blood Count 10.1 x10^3/uL (4.0-11.0) Red Blood Count 3.24 x10^6/uL (3.50-5.40) Hemoglobin 10.3 g/dL (12.0-15.5) Hematocrit 30.4 % (36.0-47.0) Mean Corpuscular Volume 94 fL (79-100) Mean Corpuscular Hemoglobin 32 pg (25-35) Mean Corpuscular Hemoglobin Concent 34 g/dL (31-37) Red Cell Distribution Width 14.7 % (11.5-14.5) Platelet Count 205 x10^3/uL (140-400) Neutrophils (%) (Auto) 78 % (31-73) Lymphocytes (%) (Auto) 11 % (24-48) Monocytes (%) (Auto) 11 % (0-9) Eosinophils (%) (Auto) 0 % (0-3) Basophils (%) (Auto) 0 % (0-3) Neutrophils # (Auto) 7.9 x10^3uL (1.8-7.7) Lymphocytes # (Auto) 1.1 x10^3/uL (1.0-4.8) Monocytes # (Auto) 1.1 x10^3/uL (0.0-1.1) Eosinophils # (Auto) 0.0 x10^3/uL (0.0-0.7) Basophils # (Auto) 0.0 x10^3/uL (0.0-0.2) Sodium Level 129 mmol/L (136-145) Potassium Level 4.3 mmol/L (3.5-5.1) Chloride Level 94 mmol/L (98-107) Carbon Dioxide Level 28 mmol/L (21-32) Anion Gap 7 (6-14) Blood Urea Nitrogen 14 mg/dL (7-20) Creatinine 0.8 mg/dL (0.6-1.0) Estimated GFR (Cockcroft-Gault) 84.6 BUN/Creatinine Ratio 18 (6-20) Glucose Level 177 mg/dL (70-99) Calcium Level 8.1 mg/dL (8.5-10.1) Magnesium Level 2.1 mg/dL (1.8-2.4) Total Bilirubin 0.8 mg/dL (0.2-1.0) Aspartate Amino Transf (AST/SGOT) 28 U/L (15-37) Alanine Aminotransferase (ALT/SGPT) 29 U/L (14-59) Alkaline Phosphatase 117 U/L (46-116) Total Protein 6.5 g/dL (6.4-8.2) Albumin 1.6 g/dL (3.4-5.0) Albumin/Globulin Ratio 0.3 (1.0-1.7) Glucose (Fingerstick) 163 mg/dL (70-99) Laboratory Tests Test 09/29/16 11:19 09/29/16 16:02 09/29/16 21:02 09/30/16 05:25 Glucose (Fingerstick) 199 mg/dL (70-99) 160 mg/dL (70-99) 161 mg/dL (70-99) White Blood Count 10.1 x10^3/uL (4.0-11.0) Red Blood Count 3.24 x10^6/uL (3.50-5.40) Hemoglobin 10.3 g/dL (12.0-15.5) Hematocrit 30.4 % (36.0-47.0) Mean Corpuscular Volume 94 fL (79-100) Mean Corpuscular Hemoglobin 32 pg (25-35) Mean Corpuscular Hemoglobin Concent 34 g/dL (31-37) Red Cell Distribution Width 14.7 % (11.5-14.5) Platelet Count 205 x10^3/uL (140-400) Neutrophils (%) (Auto) 78 % (31-73) Lymphocytes (%) (Auto) 11 % (24-48) Monocytes (%) (Auto) 11 % (0-9) Eosinophils (%) (Auto) 0 % (0-3) Basophils (%) (Auto) 0 % (0-3) Neutrophils # (Auto) 7.9 x10^3uL (1.8-7.7) Lymphocytes # (Auto) 1.1 x10^3/uL (1.0-4.8) Monocytes # (Auto) 1.1 x10^3/uL (0.0-1.1) Eosinophils # (Auto) 0.0 x10^3/uL (0.0-0.7) Basophils # (Auto) 0.0 x10^3/uL (0.0-0.2) Sodium Level 129 mmol/L (136-145) Potassium Level 4.3 mmol/L (3.5-5.1) Chloride Level 94 mmol/L (98-107) Carbon Dioxide Level 28 mmol/L (21-32) Anion Gap 7 (6-14) Blood Urea Nitrogen 14 mg/dL (7-20) Creatinine 0.8 mg/dL (0.6-1.0) Estimated GFR (Cockcroft-Gault) 84.6 BUN/Creatinine Ratio 18 (6-20) Glucose Level 177 mg/dL (70-99) Calcium Level 8.1 mg/dL (8.5-10.1) Magnesium Level 2.1 mg/dL (1.8-2.4) Total Bilirubin 0.8 mg/dL (0.2-1.0) Aspartate Amino Transf (AST/SGOT) 28 U/L (15-37) Alanine Aminotransferase (ALT/SGPT) 29 U/L (14-59) Alkaline Phosphatase 117 U/L (46-116) Total Protein 6.5 g/dL (6.4-8.2) Albumin 1.6 g/dL (3.4-5.0) Albumin/Globulin Ratio 0.3 (1.0-1.7) Test 09/30/16 07:26 Glucose (Fingerstick) 163 mg/dL (70-99) Problem List Problems Medical Problems: (1) Abdominal pain Status: Acute (2) Nausea and vomiting Status: Acute Assessment/Plan s/p xlap will try clears today Problems: MALATHI FREITAS MD Sep 30, 2016 09:58
[2016-09-30] MEDS: FAMOTIDINE 20 MG/2 ML VIAL IVP SCH ×2 (09:59→20:15)
[2016-09-30 11:00] VITALS: BP 138/55
--- NOTE | 2016-09-30 11:27 | PDOC ---
G I PROGRESS NOTE Subjective Denies much discomfort other than incisional. No emesis. Not sure she's stooling. Physical Exam Lungs clear. RRR Abdomen protuberant/still some distended. Incisional tenderness. Hear a few bowel sounds. Review of Relevant I have reviewed the following items anita (where applicable) has been applied. Labs Laboratory Tests Test 09/28/16 16:43 09/28/16 21:22 09/29/16 06:45 09/29/16 07:10 Glucose (Fingerstick) 184 mg/dL (70-99) 197 mg/dL (70-99) 169 mg/dL (70-99) White Blood Count 11.7 x10^3/uL (4.0-11.0) Red Blood Count 3.04 x10^6/uL (3.50-5.40) Hemoglobin 9.7 g/dL (12.0-15.5) Hematocrit 29.0 % (36.0-47.0) Mean Corpuscular Volume 95 fL (79-100) Mean Corpuscular Hemoglobin 32 pg (25-35) Mean Corpuscular Hemoglobin Concent 33 g/dL (31-37) Red Cell Distribution Width 14.9 % (11.5-14.5) Platelet Count 208 x10^3/uL (140-400) Neutrophils (%) (Auto) 85 % (31-73) Lymphocytes (%) (Auto) 7 % (24-48) Monocytes (%) (Auto) 8 % (0-9) Eosinophils (%) (Auto) 0 % (0-3) Basophils (%) (Auto) 0 % (0-3) Neutrophils # (Auto) 9.9 x10^3uL (1.8-7.7) Lymphocytes # (Auto) 0.8 x10^3/uL (1.0-4.8) Monocytes # (Auto) 0.9 x10^3/uL (0.0-1.1) Eosinophils # (Auto) 0.0 x10^3/uL (0.0-0.7) Basophils # (Auto) 0.0 x10^3/uL (0.0-0.2) Sodium Level 123 mmol/L (136-145) Potassium Level 5.9 mmol/L (3.5-5.1) Chloride Level 92 mmol/L (98-107) Carbon Dioxide Level 25 mmol/L (21-32) Anion Gap 6 (6-14) Blood Urea Nitrogen 14 mg/dL (7-20) Creatinine 0.7 mg/dL (0.6-1.0) Estimated GFR (Cockcroft-Gault) 98.7 BUN/Creatinine Ratio 20 (6-20) Glucose Level 176 mg/dL (70-99) Calcium Level 7.9 mg/dL (8.5-10.1) Magnesium Level 2.5 mg/dL (1.8-2.4) Total Bilirubin 0.8 mg/dL (0.2-1.0) Aspartate Amino Transf (AST/SGOT) 35 U/L (15-37) Alanine Aminotransferase (ALT/SGPT) 33 U/L (14-59) Alkaline Phosphatase 100 U/L (46-116) Total Protein 6.0 g/dL (6.4-8.2) Albumin 1.5 g/dL (3.4-5.0) Albumin/Globulin Ratio 0.3 (1.0-1.7) Test 09/29/16 11:19 09/29/16 16:02 09/29/16 21:02 09/30/16 05:25 Glucose (Fingerstick) 199 mg/dL (70-99) 160 mg/dL (70-99) 161 mg/dL (70-99) White Blood Count 10.1 x10^3/uL (4.0-11.0) Red Blood Count 3.24 x10^6/uL (3.50-5.40) Hemoglobin 10.3 g/dL (12.0-15.5) Hematocrit 30.4 % (36.0-47.0) Mean Corpuscular Volume 94 fL (79-100) Mean Corpuscular Hemoglobin 32 pg (25-35) Mean Corpuscular Hemoglobin Concent 34 g/dL (31-37) Red Cell Distribution Width 14.7 % (11.5-14.5) Platelet Count 205 x10^3/uL (140-400) Neutrophils (%) (Auto) 78 % (31-73) Lymphocytes (%) (Auto) 11 % (24-48) Monocytes (%) (Auto) 11 % (0-9) Eosinophils (%) (Auto) 0 % (0-3) Basophils (%) (Auto) 0 % (0-3) Neutrophils # (Auto) 7.9 x10^3uL (1.8-7.7) Lymphocytes # (Auto) 1.1 x10^3/uL (1.0-4.8) Monocytes # (Auto) 1.1 x10^3/uL (0.0-1.1) Eosinophils # (Auto) 0.0 x10^3/uL (0.0-0.7) Basophils # (Auto) 0.0 x10^3/uL (0.0-0.2) Sodium Level 129 mmol/L (136-145) Potassium Level 4.3 mmol/L (3.5-5.1) Chloride Level 94 mmol/L (98-107) Carbon Dioxide Level 28 mmol/L (21-32) Anion Gap 7 (6-14) Blood Urea Nitrogen 14 mg/dL (7-20) Creatinine 0.8 mg/dL (0.6-1.0) Estimated GFR (Cockcroft-Gault) 84.6 BUN/Creatinine Ratio 18 (6-20) Glucose Level 177 mg/dL (70-99) Calcium Level 8.1 mg/dL (8.5-10.1) Magnesium Level 2.1 mg/dL (1.8-2.4) Total Bilirubin 0.8 mg/dL (0.2-1.0) Aspartate Amino Transf (AST/SGOT) 28 U/L (15-37) Alanine Aminotransferase (ALT/SGPT) 29 U/L (14-59) Alkaline Phosphatase 117 U/L (46-116) Total Protein 6.5 g/dL (6.4-8.2) Albumin 1.6 g/dL (3.4-5.0) Albumin/Globulin Ratio 0.3 (1.0-1.7) Test 09/30/16 07:26 Glucose (Fingerstick) 163 mg/dL (70-99) Laboratory Tests Test 09/29/16 16:02 09/29/16 21:02 09/30/16 05:25 09/30/16 07:26 Glucose (Fingerstick) 160 mg/dL (70-99) 161 mg/dL (70-99) 163 mg/dL (70-99) White Blood Count 10.1 x10^3/uL (4.0-11.0) Red Blood Count 3.24 x10^6/uL (3.50-5.40) Hemoglobin 10.3 g/dL (12.0-15.5) Hematocrit 30.4 % (36.0-47.0) Mean Corpuscular Volume 94 fL (79-100) Mean Corpuscular Hemoglobin 32 pg (25-35) Mean Corpuscular Hemoglobin Concent 34 g/dL (31-37) Red Cell Distribution Width 14.7 % (11.5-14.5) Platelet Count 205 x10^3/uL (140-400) Neutrophils (%) (Auto) 78 % (31-73) Lymphocytes (%) (Auto) 11 % (24-48) Monocytes (%) (Auto) 11 % (0-9) Eosinophils (%) (Auto) 0 % (0-3) Basophils (%) (Auto) 0 % (0-3) Neutrophils # (Auto) 7.9 x10^3uL (1.8-7.7) Lymphocytes # (Auto) 1.1 x10^3/uL (1.0-4.8) Monocytes # (Auto) 1.1 x10^3/uL (0.0-1.1) Eosinophils # (Auto) 0.0 x10^3/uL (0.0-0.7) Basophils # (Auto) 0.0 x10^3/uL (0.0-0.2) Sodium Level 129 mmol/L (136-145) Potassium Level 4.3 mmol/L (3.5-5.1) Chloride Level 94 mmol/L (98-107) Carbon Dioxide Level 28 mmol/L (21-32) Anion Gap 7 (6-14) Blood Urea Nitrogen 14 mg/dL (7-20) Creatinine 0.8 mg/dL (0.6-1.0) Estimated GFR (Cockcroft-Gault) 84.6 BUN/Creatinine Ratio 18 (6-20) Glucose Level 177 mg/dL (70-99) Calcium Level 8.1 mg/dL (8.5-10.1) Magnesium Level 2.1 mg/dL (1.8-2.4) Total Bilirubin 0.8 mg/dL (0.2-1.0) Aspartate Amino Transf (AST/SGOT) 28 U/L (15-37) Alanine Aminotransferase (ALT/SGPT) 29 U/L (14-59) Alkaline Phosphatase 117 U/L (46-116) Total Protein 6.5 g/dL (6.4-8.2) Albumin 1.6 g/dL (3.4-5.0) Albumin/Globulin Ratio 0.3 (1.0-1.7) Medications Current Medications Ondansetron HCl (Zofran) 4 mg PRN Q8HRS PRN IV NAUSEA/VOMITING Last administered on 09/19/16 02:59; Start 09/18/16 at 22:45; Stop 09/19/16 at 22:44 ; Status DC Fentanyl Citrate (Fentanyl 2ml Vial) 50 mcg PRN Q2HR PRN IV PAIN Last administered on 09/19/16 08:14; Start 09/18/16 at 22:45; Stop 09/19/16 at 22:44 ; Status DC Sodium Chloride 1,000 ml @ 125 mls/hr Q8H IV Last administered on 09/19/16 11 :01; Start 09/18/16 at 22:45; Stop 09/19/16 at 22:44; Status DC Hydralazine HCl (Apresoline) 10 mg PRN Q4HRS PRN IVP ELEVATED BP, SEE COMMENTS Last administered on 09/19/16 01:55; Start 09/19/16 at 01:45; Stop 09/19/16 at 12:24; Status DC Potassium Chloride 30 meq/ Sodium Chloride 1,015 ml @ 125 mls/hr 1X ONCE IV Last administered on 09/19/16 03:07; Start 09/19/16 at 01:45; Stop 09/19/16 at 09:52; Status DC Al Hydroxide/Mg Hydroxide (Mylanta Plus Xs) 15 ml 1X ONCE PO Last administered on 09/19/16 05:50; Start 09/19/16 at 06:00; Stop 09/19/16 at 06:01 ; Status DC Famotidine (Pepcid) 20 mg BID IVP Last administered on 09/24/16 09:01; Start 09/19/16 at 09:00; Stop 09/24/16 at 13:12; Status DC Acetaminophen (Tylenol) 650 mg PRN Q6HRS PRN PO FEVER Last administered on 09/25 08:43; Start 09/19/16 at 09:30; Stop 09/26/16 at 14:20; Status DC Ondansetron HCl (Zofran) 4 mg PRN Q6HRS PRN IV NAUSEA/VOMITING Last administered on 09/25/16 05:35; Start 09/19/16 at 09:30; Stop 09/27/16 at 12:26 ; Status DC Morphine Sulfate 2 mg PRN Q2HR PRN IV PAIN; Start 09/19/16 at 09:30; Stop 09/19 at 09:56; Status DC Tramadol HCl (Ultram) 50 mg PRN Q6HRS PRN PO PAIN Last administered on 09:49; Start 09/19/16 at 09:30; Stop 09/26/16 at 14:20; Status DC Hydralazine HCl (Apresoline) 10 mg PRN Q4HRS PRN IVP ELEVATED BP, SEE COMMENTS Last administered on 09/25/16 17:24; Start 09/19/16 at 09:30 Docusate Sodium (Colace) 100 mg PRN DAILY PRN PO CONSTIPATION Last administered on 09/25/16 08:43; Start 09/19/16 at 09:30; Stop 09/26/16 at 14:20 ; Status DC Barium Sulfate (Liquid E-Z Paque) 355 ml 1X ONCE PO ; Start 09/19/16 at 10:00; Stop 09/19/16 at 10:01; Status DC Barium Sulfate (Liquid E-Z Paque) 355 ml 1X ONCE PO ; Start 09/19/16 at 10:00; Stop 09/19/16 at 10:01; Status DC Morphine Sulfate 2 mg PRN Q2HR PRN IV PAIN Last administered on 09/24/16 09:09 ; Start 09/19/16 at 10:00; Stop 09/24/16 at 13:12; Status DC Throat Lozenges (Chloraseptic) 1 spray PRN Q2HR PRN PO SORE THROAT Last administered on 09/19/16 11:01; Start 09/19/16 at 10:15 Potassium Chloride/Sodium Chloride 1,000 ml @ 100 mls/hr Q10H IV Last administered on 09/20/16 01:57; Start 09/19/16 at 12:30; Stop 09/20/16 at 08:19 ; Status DC Heparin Sodium (Porcine) (Heparin Sq) 5,000 unit Q8HRS SQ Last administered on 09/30/16 05:55; Start 09/19/16 at 14:00 Amino Acids/ Glycerin/ Electrolytes 1,000 ml @ 75 mls/hr [id number] IV Last administered on 09/30/16 08:02; Start 09/20/16 at 08:30 Dextrose (Dextrose 50%-Water Syringe) 25 gm PRN Q15MIN PRN IV SEE COMMENTS Last administered on 09/20/16 11:52; Start 09/20/16 at 11:45; Stop 09/29/16 at 13:46; Status DC Iohexol (Omnipaque 350 Mg/ml) 400 ml 1X ONCE PO Last administered on 12:37; Start 09/20/16 at 12:15; Stop 09/20/16 at 12:16; Status DC Levofloxacin/ Dextrose 100 ml @ 100 mls/hr 1X PREOP PRN IV PRIOR TO PROCEDURE ; Start 09/21/16 at 17:30; Stop 09/22/16 at 18:00; Status DC Ondansetron HCl (Zofran) 4 mg PRN Q6HRS PRN IV NAUSEA/VOMITING; Start 09/22/16 at 07:45; Stop 09/23/16 at 07:44; Status DC Fentanyl Citrate (Fentanyl 2ml Vial) 25 mcg PRN Q5MIN PRN IV MILD PAIN; Start 09/22/16 at 07:45; Stop 09/23/16 at 07:44; Status DC Fentanyl Citrate (Fentanyl 2ml Vial) 50 mcg PRN Q5MIN PRN IV MODERATE PAIN; Start 09/22/16 at 07:45; Stop 09/23/16 at 07:44; Status DC Morphine Sulfate 1 mg PRN Q10MIN PRN IV SEVERE PAIN; Start 09/22/16 at 07:45; Stop 09/23/16 at 07:44; Status DC Ringer's Solution 1,000 ml @ 30 mls/hr Q24H IV ; Start 09/22/16 at 07:45; Stop 09/22/16 at 19:44; Status DC Lidocaine HCl 2 ml PRN 1X PRN ID PRIOR TO IV START; Start 09/22/16 at 07:45; Stop 09/23/16 at 07:44; Status DC Hydromorphone HCl (Dilaudid) 0.5 mg PRN Q10MIN PRN IV SEV PAIN, Second choice; Start 09/22/16 at 07:45; Stop 09/23/16 at 07:44; Status DC Prochlorperazine Edisylate (Compazine) 5 mg PACU PRN PRN IV NAUSEA, MRX1; Start 09/22/16 at 07:45; Stop 09/23/16 at 07:44; Status DC Lorazepam (Ativan) 0.5 mg 1X ONCE IV Last administered on 09/22/16 12:08; Start 09/22/16 at 12:00; Stop 09/22/16 at 12:03; Status DC Pantoprazole Sodium (Protonix) 40 mg DAILYAC PO Last administered on 09/25/16 08:43; Start 09/24/16 at 13:15; Stop 09/26/16 at 14:20; Status DC Levofloxacin/ Dextrose 100 ml @ 100 mls/hr 1X PREOP ONCE IV Last administered on 09/25/16 13:32; Start 09/25/16 at 13:30; Stop 09/25/16 at 14:29 ; Status DC Sevoflurane (Ultane) 60 ml STK-MED ONCE IH ; Start 09/25/16 at 13:40; Stop 09/25 at 13:53; Status DC Fentanyl Citrate (Fentanyl 2ml Vial) 100 mcg STK-MED ONCE .ROUTE ; Start at 13:41; Stop 09/25/16 at 13:53; Status DC Glycopyrrolate (Robinul) 1 mg STK-MED ONCE .ROUTE ; Start 09/25/16 at 13:41; Stop 09/25/16 at 13:53; Status DC Propofol 20 ml @ As Directed STK-MED ONCE IV ; Start 09/25/16 at 13:41; Stop at 13:53; Status DC Ondansetron HCl (Zofran) 4 mg STK-MED ONCE .ROUTE ; Start 09/25/16 at 13:42; Stop 09/25/16 at 13:53; Status DC Dexamethasone Sodium Phosphate (Decadron) 20 mg STK-MED ONCE .ROUTE ; Start at 13:42; Stop 09/25/16 at 13:53; Status DC Lidocaine HCl (Lidocaine Pf 2% Vial) 5 ml STK-MED ONCE .ROUTE ; Start 09/25/16 at 13:42; Stop 09/25/16 at 13:53; Status DC Ondansetron HCl (Zofran) 4 mg PRN Q6HRS PRN IV NAUSEA/VOMITING; Start 09/25/16 at 14:00; Stop 09/26/16 at 13:59; Status DC Fentanyl Citrate (Fentanyl 2ml Vial) 25 mcg PRN Q5MIN PRN IV MILD PAIN; Start 09/25/16 at 14:00; Stop 09/26/16 at 13:59; Status DC Fentanyl Citrate (Fentanyl 2ml Vial) 50 mcg PRN Q5MIN PRN IV MODERATE PAIN Last administered on 09/25/16t 17:31; Start 09/25/16 at 14:00; Stop 09/26/16 at 13:59; Status DC Morphine Sulfate 1 mg PRN Q10MIN PRN IV SEVERE PAIN; Start 09/25/16 at 14:00; Stop 09/26/16 at 13:59; Status DC Ringer's Solution 1,000 ml @ 0 mls/hr Q0M IV ; Start 09/25/16 at 13:53; Stop at 01:52; Status DC Lidocaine HCl 2 ml PRN 1X PRN ID PRIOR TO IV START; Start 09/25/16 at 14:00; Stop 09/26/16 at 13:59; Status DC Hydromorphone HCl (Dilaudid) 0.5 mg PRN Q10MIN PRN IV SEV PAIN, Second choice; Start 09/25/16 at 14:00; Stop 09/26/16 at 13:59; Status DC Prochlorperazine Edisylate (Compazine) 5 mg PACU PRN PRN IV NAUSEA, MRX1; Start 09/25/16 at 14:00; Stop 09/26/16 at 13:59; Status DC Fentanyl Citrate (Fentanyl 2ml Vial) 100 mcg STK-MED ONCE .ROUTE ; Start at 14:08; Stop 09/25/16 at 14:09; Status DC Ringer's Solution 1,000 ml @ 125 mls/hr Q8H IV ; Start 09/25/16 at 14:09; Stop 09/26/16 at 02:08; Status DC Fentanyl Citrate (Fentanyl 2ml Vial) 50 mcg PRN Q5MIN PRN IV pain Last administered on 09/25/16 14:15; Start 09/25/16 at 14:15; Stop 09/26/16 at 14:20 ; Status DC Succinylcholine Chloride (Anectine) 200 mg STK-MED ONCE .ROUTE ; Start 09/25/16 at 14:20; Stop 09/25/16 at 14:21; Status DC Fentanyl Citrate (Fentanyl 2ml Vial) 100 mcg STK-MED ONCE .ROUTE ; Start at 14:54; Stop 09/25/16 at 14:55; Status DC Enoxaparin Sodium (Lovenox 40mg Syringe) 40 mg Q24H SQ ; Start 09/25/16 at 18:00 ; Stop 09/26/16 at 11:03; Status DC Sodium Chloride (Normal Saline Flush) 3 ml QSHIFT PRN IV AFTER MEDS AND BLOOD DRAWS; Start 09/25/16 at 16:30 Ringer's Solution 1,000 ml @ 100 mls/hr Q10H IV ; Start 09/25/16 at 16:25; Stop 09/25/16 at 23:51; Status DC Naloxone HCl (Narcan) 0.4 mg PRN Q2MIN PRN IV SEE INSTRUCTIONS; Start 09/25/16 at 16:30 Sodium Chloride 1,000 ml @ 25 mls/hr Q24H IV Last administered on 09/30/16 08 :02; Start 09/25/16 at 16:25 Hydromorphone HCl 30 ml @ 0 mls/hr CONT PRN PRN IV PROTOCOL Last administered on 09/30/16 05:32; Start 09/25/16 at 16:30 Ondansetron HCl (Zofran) 4 mg PRN Q6HRS PRN IV NAUESA, 1ST CHOICE Last administered on 09/28/16 07:20; Start 09/25/16 at 16:30 Fentanyl Citrate (Fentanyl 2ml Vial) 100 mcg STK-MED ONCE .ROUTE ; Start at 17:14; Stop 09/25/16 at 17:15; Status DC Acetaminophen (Tylenol) 325 mg PRN Q6HRS PRN ID fever >100.4 Last administered on 09/28/16 19:28; Start 09/26/16 at 14:30 Bisacodyl (Dulcolax Supp) 10 mg PRN DAILY PRN ID CONSTIPATION; Start 09/26/16 at 14:30 Famotidine (Pepcid) 20 mg BID IVP Last administered on 09/30/16 09:59; Start 09/26/16 at 21:00 Insulin Aspart (NovoLOG) 0-5 UNITS TIDWMEALS SQ Last administered on 09/29/16 12:19; Start 09/26/16 at 17:00 Dextrose (Dextrose 50%-Water Syringe) 12.5 gm PRN Q15MIN PRN IV SEE COMMENTS; Start 09/26/16 at 15:00 Saliva Substitute (Biotene Moisturizing Mouth) 2 spray PRN Q15MIN PRN PO DRY MOUTH Last administered on 09/28/16 22:06; Start 09/28/16 at 14:00 Sodium Chloride 1,000 ml @ 75 mls/hr 1X ONCE IV Last administered on 14:45; Start 09/29/16 at 14:45; Stop 09/30/16 at 04:04; Status DC Active Scripts Active Senna S Tablet (Sennosides/Docusate Sodium) 1 Each Tablet 1 Each PO DAILY Reported Lexapro (Escitalopram Oxalate) 20 Mg Tablet 1 Tab PO DAILY Lisinopril-Hctz 20-12.5 Mg Tab (Lisinopril/Hydrochlorothiazide) 1 Each Tablet 1 Tab PO DAILY Lipitor (Atorvastatin Calcium) 20 Mg Tablet 20 Mg PO HS Ambien (Zolpidem Tartrate) 5 Mg Tablet 1 Tab PO QHS Lyrica (Pregabalin) 150 Mg Capsule 150 Mg PO BID 30 Days Buspirone Hcl 10 Mg Tablet 10 Mg PO BID Aspir 81 (Aspirin) 81 Mg Tablet. 1 Tab PO DAILY Vitals/I & O Vital Sign - Last 24 Hours 09/29/16 09/29/16 09/29/16 09/29/16 14:43 19:00 19:30 23:00 Temp 99.9 99.7 95.7 99.9 99.7 95.7 Pulse 83 96 89 Resp 16 14 14 B/P (MAP) 135/71 (92) 145/79 (101) 143/77 (99) Pulse Ox 100 100 100 O2 Delivery Room Air Room Air Nasal Cannula Room Air O2 Flow Rate 2.0 09/30/16 09/30/16 09/30/16 09/30/16 03:00 05:32 06:05 07:00 Temp 98.4 98.6 98.4 98.6 Pulse 88 92 Resp 14 16 B/P (MAP) 130/61 (84) 127/57 (80) Pulse Ox 99 99 99 100 O2 Delivery Room Air Nasal Cannula Nasal Cannula Nasal Cannula O2 Flow Rate 2.0 2.0 2.0 09/30/16 07:45 O2 Delivery Nasal Cannula O2 Flow Rate 2.0 Intake and Output 09/29/16 09/29/16 09/30/16 15:00 23:00 07:00 Intake Total 80 ml 0 ml 0 ml Output Total 850 ml Balance 80 ml 0 ml -850 ml Problem List Problems Medical Problems: (1) Abdominal pain Status: Acute (2) Nausea and vomiting Status: Acute Assessment 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 Plan of Care: Continue current Tx, Mgmt Plan of Care Note Await trial of clears. BLANCA LEYVA MD Sep 30, 2016 11:26
--- NOTE | 2016-09-30 12:34 | PDOC ---
PROGRESS NOTES Chief Complaint Chief Complaint Abdominal pain, recurrent SBO ASSESSMENT AND PLAN: 1. SBO: s/p ex lap on 09/25: abdominal wall mass, metastatic adenocarcinoma , ascites; small bowel obstruction secondary to adhesion involving the lower abdominal incision/malignancy, ascites, extensive miliary disease in the lower abdomen and pelvis 2. Pain control: Dilaudid [employer], to continue, pain persists, 3. Nutrition: on PPN for now. no flatus, cont NPO 4. HTN/HLD: well controlled; hydralazine IV PRN 5. CAD: hx CABG. stable 6. DM2: sl worse since surgery. monitor with ISS 7. Hypokalemia/hyperkalemia 8. Hyponatremia: plan: fu with sx, on clear liquid now PPN fu with gi IF CONT low Na AND HIGH k Tmr , will dc PPN ALSO ON NS now [employer] for pain control dvt, gi ppx talked to onco, pt will fu with her own onco in after DC for chemo talked to pt about plan, pt has limited understanding, will get PAT consult History of Present Illness History of Present Illness ROS: no chills, sob or chest pain has flatus, no BM abd pain 9/10 , on [employer], but not using much low na better high K better T 100.4 Vitals Vitals Vital Signs Date Time Temp Pulse Resp B/P (MAP) Pulse Ox O2 Delivery O2 Flow Rate FiO2 09/30/16 11:00 98.2 83 18 138/55 (82) 99 Nasal Cannula 2.0 98.2 Physical Exam General: Alert, Cooperative, No acute distress Heart: Normal S1, Normal S2 Lungs: Clear, Other (no r/r/w) Abdomen: Soft, No tenderness, Other (dressing c/d/i, G-tube in place) Extremities: No edema Skin: No rashes, No breakdown Labs LABS Laboratory Tests Test 09/29/16 16:02 09/29/16 21:02 09/30/16 05:25 09/30/16 07:26 Glucose (Fingerstick) 160 mg/dL (70-99) 161 mg/dL (70-99) 163 mg/dL (70-99) White Blood Count 10.1 x10^3/uL (4.0-11.0) Red Blood Count 3.24 x10^6/uL (3.50-5.40) Hemoglobin 10.3 g/dL (12.0-15.5) Hematocrit 30.4 % (36.0-47.0) Mean Corpuscular Volume 94 fL (79-100) Mean Corpuscular Hemoglobin 32 pg (25-35) Mean Corpuscular Hemoglobin Concent 34 g/dL (31-37) Red Cell Distribution Width 14.7 % (11.5-14.5) Platelet Count 205 x10^3/uL (140-400) Neutrophils (%) (Auto) 78 % (31-73) Lymphocytes (%) (Auto) 11 % (24-48) Monocytes (%) (Auto) 11 % (0-9) Eosinophils (%) (Auto) 0 % (0-3) Basophils (%) (Auto) 0 % (0-3) Neutrophils # (Auto) 7.9 x10^3uL (1.8-7.7) Lymphocytes # (Auto) 1.1 x10^3/uL (1.0-4.8) Monocytes # (Auto) 1.1 x10^3/uL (0.0-1.1) Eosinophils # (Auto) 0.0 x10^3/uL (0.0-0.7) Basophils # (Auto) 0.0 x10^3/uL (0.0-0.2) Sodium Level 129 mmol/L (136-145) Potassium Level 4.3 mmol/L (3.5-5.1) Chloride Level 94 mmol/L (98-107) Carbon Dioxide Level 28 mmol/L (21-32) Anion Gap 7 (6-14) Blood Urea Nitrogen 14 mg/dL (7-20) Creatinine 0.8 mg/dL (0.6-1.0) Estimated GFR (Cockcroft-Gault) 84.6 BUN/Creatinine Ratio 18 (6-20) Glucose Level 177 mg/dL (70-99) Calcium Level 8.1 mg/dL (8.5-10.1) Magnesium Level 2.1 mg/dL (1.8-2.4) Total Bilirubin 0.8 mg/dL (0.2-1.0) Aspartate Amino Transf (AST/SGOT) 28 U/L (15-37) Alanine Aminotransferase (ALT/SGPT) 29 U/L (14-59) Alkaline Phosphatase 117 U/L (46-116) Total Protein 6.5 g/dL (6.4-8.2) Albumin 1.6 g/dL (3.4-5.0) Albumin/Globulin Ratio 0.3 (1.0-1.7) Test 09/30/16 10:54 Glucose (Fingerstick) 176 mg/dL (70-99) Assessment and Plan Assessmemt and Plan Problems Medical Problems: (1) Abdominal pain Status: Acute (2) Nausea and vomiting Status: Acute Problems: Comment Review of Relevant I have reviewed the following items anita (where applicable) has been applied. Labs Laboratory Tests Test 09/28/16 16:43 09/28/16 21:22 09/29/16 06:45 09/29/16 07:10 Glucose (Fingerstick) 184 mg/dL (70-99) 197 mg/dL (70-99) 169 mg/dL (70-99) White Blood Count 11.7 x10^3/uL (4.0-11.0) Red Blood Count 3.04 x10^6/uL (3.50-5.40) Hemoglobin 9.7 g/dL (12.0-15.5) Hematocrit 29.0 % (36.0-47.0) Mean Corpuscular Volume 95 fL (79-100) Mean Corpuscular Hemoglobin 32 pg (25-35) Mean Corpuscular Hemoglobin Concent 33 g/dL (31-37) Red Cell Distribution Width 14.9 % (11.5-14.5) Platelet Count 208 x10^3/uL (140-400) Neutrophils (%) (Auto) 85 % (31-73) Lymphocytes (%) (Auto) 7 % (24-48) Monocytes (%) (Auto) 8 % (0-9) Eosinophils (%) (Auto) 0 % (0-3) Basophils (%) (Auto) 0 % (0-3) Neutrophils # (Auto) 9.9 x10^3uL (1.8-7.7) Lymphocytes # (Auto) 0.8 x10^3/uL (1.0-4.8) Monocytes # (Auto) 0.9 x10^3/uL (0.0-1.1) Eosinophils # (Auto) 0.0 x10^3/uL (0.0-0.7) Basophils # (Auto) 0.0 x10^3/uL (0.0-0.2) Sodium Level 123 mmol/L (136-145) Potassium Level 5.9 mmol/L (3.5-5.1) Chloride Level 92 mmol/L (98-107) Carbon Dioxide Level 25 mmol/L (21-32) Anion Gap 6 (6-14) Blood Urea Nitrogen 14 mg/dL (7-20) Creatinine 0.7 mg/dL (0.6-1.0) Estimated GFR (Cockcroft-Gault) 98.7 BUN/Creatinine Ratio 20 (6-20) Glucose Level 176 mg/dL (70-99) Calcium Level 7.9 mg/dL (8.5-10.1) Magnesium Level 2.5 mg/dL (1.8-2.4) Total Bilirubin 0.8 mg/dL (0.2-1.0) Aspartate Amino Transf (AST/SGOT) 35 U/L (15-37) Alanine Aminotransferase (ALT/SGPT) 33 U/L (14-59) Alkaline Phosphatase 100 U/L (46-116) Total Protein 6.0 g/dL (6.4-8.2) Albumin 1.5 g/dL (3.4-5.0) Albumin/Globulin Ratio 0.3 (1.0-1.7) Test 09/29/16 11:19 09/29/16 16:02 09/29/16 21:02 09/30/16 05:25 Glucose (Fingerstick) 199 mg/dL (70-99) 160 mg/dL (70-99) 161 mg/dL (70-99) White Blood Count 10.1 x10^3/uL (4.0-11.0) Red Blood Count 3.24 x10^6/uL (3.50-5.40) Hemoglobin 10.3 g/dL (12.0-15.5) Hematocrit 30.4 % (36.0-47.0) Mean Corpuscular Volume 94 fL (79-100) Mean Corpuscular Hemoglobin 32 pg (25-35) Mean Corpuscular Hemoglobin Concent 34 g/dL (31-37) Red Cell Distribution Width 14.7 % (11.5-14.5) Platelet Count 205 x10^3/uL (140-400) Neutrophils (%) (Auto) 78 % (31-73) Lymphocytes (%) (Auto) 11 % (24-48) Monocytes (%) (Auto) 11 % (0-9) Eosinophils (%) (Auto) 0 % (0-3) Basophils (%) (Auto) 0 % (0-3) Neutrophils # (Auto) 7.9 x10^3uL (1.8-7.7) Lymphocytes # (Auto) 1.1 x10^3/uL (1.0-4.8) Monocytes # (Auto) 1.1 x10^3/uL (0.0-1.1) Eosinophils # (Auto) 0.0 x10^3/uL (0.0-0.7) Basophils # (Auto) 0.0 x10^3/uL (0.0-0.2) Sodium Level 129 mmol/L (136-145) Potassium Level 4.3 mmol/L (3.5-5.1) Chloride Level 94 mmol/L (98-107) Carbon Dioxide Level 28 mmol/L (21-32) Anion Gap 7 (6-14) Blood Urea Nitrogen 14 mg/dL (7-20) Creatinine 0.8 mg/dL (0.6-1.0) Estimated GFR (Cockcroft-Gault) 84.6 BUN/Creatinine Ratio 18 (6-20) Glucose Level 177 mg/dL (70-99) Calcium Level 8.1 mg/dL (8.5-10.1) Magnesium Level 2.1 mg/dL (1.8-2.4) Total Bilirubin 0.8 mg/dL (0.2-1.0) Aspartate Amino Transf (AST/SGOT) 28 U/L (15-37) Alanine Aminotransferase (ALT/SGPT) 29 U/L (14-59) Alkaline Phosphatase 117 U/L (46-116) Total Protein 6.5 g/dL (6.4-8.2) Albumin 1.6 g/dL (3.4-5.0) Albumin/Globulin Ratio 0.3 (1.0-1.7) Test 09/30/16 07:26 09/30/16 10:54 Glucose (Fingerstick) 163 mg/dL (70-99) 176 mg/dL (70-99) Laboratory Tests Test 09/29/16 16:02 09/29/16 21:02 09/30/16 05:25 09/30/16 07:26 Glucose (Fingerstick) 160 mg/dL (70-99) 161 mg/dL (70-99) 163 mg/dL (70-99) White Blood Count 10.1 x10^3/uL (4.0-11.0) Red Blood Count 3.24 x10^6/uL (3.50-5.40) Hemoglobin 10.3 g/dL (12.0-15.5) Hematocrit 30.4 % (36.0-47.0) Mean Corpuscular Volume 94 fL (79-100) Mean Corpuscular Hemoglobin 32 pg (25-35) Mean Corpuscular Hemoglobin Concent 34 g/dL (31-37) Red Cell Distribution Width 14.7 % (11.5-14.5) Platelet Count 205 x10^3/uL (140-400) Neutrophils (%) (Auto) 78 % (31-73) Lymphocytes (%) (Auto) 11 % (24-48) Monocytes (%) (Auto) 11 % (0-9) Eosinophils (%) (Auto) 0 % (0-3) Basophils (%) (Auto) 0 % (0-3) Neutrophils # (Auto) 7.9 x10^3uL (1.8-7.7) Lymphocytes # (Auto) 1.1 x10^3/uL (1.0-4.8) Monocytes # (Auto) 1.1 x10^3/uL (0.0-1.1) Eosinophils # (Auto) 0.0 x10^3/uL (0.0-0.7) Basophils # (Auto) 0.0 x10^3/uL (0.0-0.2) Sodium Level 129 mmol/L (136-145) Potassium Level 4.3 mmol/L (3.5-5.1) Chloride Level 94 mmol/L (98-107) Carbon Dioxide Level 28 mmol/L (21-32) Anion Gap 7 (6-14) Blood Urea Nitrogen 14 mg/dL (7-20) Creatinine 0.8 mg/dL (0.6-1.0) Estimated GFR (Cockcroft-Gault) 84.6 BUN/Creatinine Ratio 18 (6-20) Glucose Level 177 mg/dL (70-99) Calcium Level 8.1 mg/dL (8.5-10.1) Magnesium Level 2.1 mg/dL (1.8-2.4) Total Bilirubin 0.8 mg/dL (0.2-1.0) Aspartate Amino Transf (AST/SGOT) 28 U/L (15-37) Alanine Aminotransferase (ALT/SGPT) 29 U/L (14-59) Alkaline Phosphatase 117 U/L (46-116) Total Protein 6.5 g/dL (6.4-8.2) Albumin 1.6 g/dL (3.4-5.0) Albumin/Globulin Ratio 0.3 (1.0-1.7) Test 09/30/16 10:54 Glucose (Fingerstick) 176 mg/dL (70-99) Medications Current Medications Ondansetron HCl (Zofran) 4 mg PRN Q8HRS PRN IV NAUSEA/VOMITING Last administered on 09/19/16 02:59; Start 09/18/16 at 22:45; Stop 09/19/16 at 22:44 ; Status DC Fentanyl Citrate (Fentanyl 2ml Vial) 50 mcg PRN Q2HR PRN IV PAIN Last administered on 09/19/16 08:14; Start 09/18/16 at 22:45; Stop 09/19/16 at 22:44 ; Status DC Sodium Chloride 1,000 ml @ 125 mls/hr Q8H IV Last administered on 09/19/16 11 :01; Start 09/18/16 at 22:45; Stop 09/19/16 at 22:44; Status DC Hydralazine HCl (Apresoline) 10 mg PRN Q4HRS PRN IVP ELEVATED BP, SEE COMMENTS Last administered on 09/19/16 01:55; Start 09/19/16 at 01:45; Stop 09/19/16 at 12:24; Status DC Potassium Chloride 30 meq/ Sodium Chloride 1,015 ml @ 125 mls/hr 1X ONCE IV Last administered on 09/19/16 03:07; Start 09/19/16 at 01:45; Stop 09/19/16 at 09:52; Status DC Al Hydroxide/Mg Hydroxide (Mylanta Plus Xs) 15 ml 1X ONCE PO Last administered on 09/19/16 05:50; Start 09/19/16 at 06:00; Stop 09/19/16 at 06:01 ; Status DC Famotidine (Pepcid) 20 mg BID IVP Last administered on 09/24/16 09:01; Start 09/19/16 at 09:00; Stop 09/24/16 at 13:12; Status DC Acetaminophen (Tylenol) 650 mg PRN Q6HRS PRN PO FEVER Last administered on 09/25 08:43; Start 09/19/16 at 09:30; Stop 09/26/16 at 14:20; Status DC Ondansetron HCl (Zofran) 4 mg PRN Q6HRS PRN IV NAUSEA/VOMITING Last administered on 09/25/16 05:35; Start 09/19/16 at 09:30; Stop 09/27/16 at 12:26 ; Status DC Morphine Sulfate 2 mg PRN Q2HR PRN IV PAIN; Start 09/19/16 at 09:30; Stop 09/19 at 09:56; Status DC Tramadol HCl (Ultram) 50 mg PRN Q6HRS PRN PO PAIN Last administered on 09:49; Start 09/19/16 at 09:30; Stop 09/26/16 at 14:20; Status DC Hydralazine HCl (Apresoline) 10 mg PRN Q4HRS PRN IVP ELEVATED BP, SEE COMMENTS Last administered on 09/25/16 17:24; Start 09/19/16 at 09:30 Docusate Sodium (Colace) 100 mg PRN DAILY PRN PO CONSTIPATION Last administered on 09/25/16 08:43; Start 09/19/16 at 09:30; Stop 09/26/16 at 14:20 ; Status DC Barium Sulfate (Liquid E-Z Paque) 355 ml 1X ONCE PO ; Start 09/19/16 at 10:00; Stop 09/19/16 at 10:01; Status DC Barium Sulfate (Liquid E-Z Paque) 355 ml 1X ONCE PO ; Start 09/19/16 at 10:00; Stop 09/19/16 at 10:01; Status DC Morphine Sulfate 2 mg PRN Q2HR PRN IV PAIN Last administered on 09/24/16 09:09 ; Start 09/19/16 at 10:00; Stop 09/24/16 at 13:12; Status DC Throat Lozenges (Chloraseptic) 1 spray PRN Q2HR PRN PO SORE THROAT Last administered on 09/19/16 11:01; Start 09/19/16 at 10:15 Potassium Chloride/Sodium Chloride 1,000 ml @ 100 mls/hr Q10H IV Last administered on 09/20/16 01:57; Start 09/19/16 at 12:30; Stop 09/20/16 at 08:19 ; Status DC Heparin Sodium (Porcine) (Heparin Sq) 5,000 unit Q8HRS SQ Last administered on 09/30/16 05:55; Start 09/19/16 at 14:00 Amino Acids/ Glycerin/ Electrolytes 1,000 ml @ 75 mls/hr [id number] IV Last administered on 09/30/16 08:02; Start 09/20/16 at 08:30 Dextrose (Dextrose 50%-Water Syringe) 25 gm PRN Q15MIN PRN IV SEE COMMENTS Last administered on 09/20/16 11:52; Start 09/20/16 at 11:45; Stop 09/29/16 at 13:46; Status DC Iohexol (Omnipaque 350 Mg/ml) 400 ml 1X ONCE PO Last administered on 12:37; Start 09/20/16 at 12:15; Stop 09/20/16 at 12:16; Status DC Levofloxacin/ Dextrose 100 ml @ 100 mls/hr 1X PREOP PRN IV PRIOR TO PROCEDURE ; Start 09/21/16 at 17:30; Stop 09/22/16 at 18:00; Status DC Ondansetron HCl (Zofran) 4 mg PRN Q6HRS PRN IV NAUSEA/VOMITING; Start 09/22/16 at 07:45; Stop 09/23/16 at 07:44; Status DC Fentanyl Citrate (Fentanyl 2ml Vial) 25 mcg PRN Q5MIN PRN IV MILD PAIN; Start 09/22/16 at 07:45; Stop 09/23/16 at 07:44; Status DC Fentanyl Citrate (Fentanyl 2ml Vial) 50 mcg PRN Q5MIN PRN IV MODERATE PAIN; Start 09/22/16 at 07:45; Stop 09/23/16 at 07:44; Status DC Morphine Sulfate 1 mg PRN Q10MIN PRN IV SEVERE PAIN; Start 09/22/16 at 07:45; Stop 09/23/16 at 07:44; Status DC Ringer's Solution 1,000 ml @ 30 mls/hr Q24H IV ; Start 09/22/16 at 07:45; Stop 09/22/16 at 19:44; Status DC Lidocaine HCl 2 ml PRN 1X PRN ID PRIOR TO IV START; Start 09/22/16 at 07:45; Stop 09/23/16 at 07:44; Status DC Hydromorphone HCl (Dilaudid) 0.5 mg PRN Q10MIN PRN IV SEV PAIN, Second choice; Start 09/22/16 at 07:45; Stop 09/23/16 at 07:44; Status DC Prochlorperazine Edisylate (Compazine) 5 mg PACU PRN PRN IV NAUSEA, MRX1; Start 09/22/16 at 07:45; Stop 09/23/16 at 07:44; Status DC Lorazepam (Ativan) 0.5 mg 1X ONCE IV Last administered on 09/22/16t 12:08; Start 09/22/16 at 12:00; Stop 09/22/16 at 12:03; Status DC Pantoprazole Sodium (Protonix) 40 mg DAILYAC PO Last administered on 09/25/16 08:43; Start 09/24/16 at 13:15; Stop 09/26/16 at 14:20; Status DC Levofloxacin/ Dextrose 100 ml @ 100 mls/hr 1X PREOP ONCE IV Last administered on 09/25/16t 13:32; Start 09/25/16 at 13:30; Stop 09/25/16 at 14:29 ; Status DC Sevoflurane (Ultane) 60 ml STK-MED ONCE IH ; Start 09/25/16 at 13:40; Stop 09/25 at 13:53; Status DC Fentanyl Citrate (Fentanyl 2ml Vial) 100 mcg STK-MED ONCE .ROUTE ; Start at 13:41; Stop 09/25/16 at 13:53; Status DC Glycopyrrolate (Robinul) 1 mg STK-MED ONCE .ROUTE ; Start 09/25/16 at 13:41; Stop 09/25/16 at 13:53; Status DC Propofol 20 ml @ As Directed STK-MED ONCE IV ; Start 09/25/16 at 13:41; Stop at 13:53; Status DC Ondansetron HCl (Zofran) 4 mg STK-MED ONCE .ROUTE ; Start 09/25/16 at 13:42; Stop 09/25/16 at 13:53; Status DC Dexamethasone Sodium Phosphate (Decadron) 20 mg STK-MED ONCE .ROUTE ; Start at 13:42; Stop 09/25/16 at 13:53; Status DC Lidocaine HCl (Lidocaine Pf 2% Vial) 5 ml STK-MED ONCE .ROUTE ; Start 09/25/16 at 13:42; Stop 09/25/16 at 13:53; Status DC Ondansetron HCl (Zofran) 4 mg PRN Q6HRS PRN IV NAUSEA/VOMITING; Start 09/25/16 at 14:00; Stop 09/26/16 at 13:59; Status DC Fentanyl Citrate (Fentanyl 2ml Vial) 25 mcg PRN Q5MIN PRN IV MILD PAIN; Start 09/25/16 at 14:00; Stop 09/26/16 at 13:59; Status DC Fentanyl Citrate (Fentanyl 2ml Vial) 50 mcg PRN Q5MIN PRN IV MODERATE PAIN Last administered on 09/25/16t 17:31; Start 09/25/16 at 14:00; Stop 09/26/16 at 13:59; Status DC Morphine Sulfate 1 mg PRN Q10MIN PRN IV SEVERE PAIN; Start 09/25/16 at 14:00; Stop 09/26/16 at 13:59; Status DC Ringer's Solution 1,000 ml @ 0 mls/hr Q0M IV ; Start 09/25/16 at 13:53; Stop at 01:52; Status DC Lidocaine HCl 2 ml PRN 1X PRN ID PRIOR TO IV START; Start 09/25/16 at 14:00; Stop 09/26/16 at 13:59; Status DC Hydromorphone HCl (Dilaudid) 0.5 mg PRN Q10MIN PRN IV SEV PAIN, Second choice; Start 09/25/16 at 14:00; Stop 09/26/16 at 13:59; Status DC Prochlorperazine Edisylate (Compazine) 5 mg PACU PRN PRN IV NAUSEA, MRX1; Start 09/25/16 at 14:00; Stop 09/26/16 at 13:59; Status DC Fentanyl Citrate (Fentanyl 2ml Vial) 100 mcg STK-MED ONCE .ROUTE ; Start at 14:08; Stop 09/25/16 at 14:09; Status DC Ringer's Solution 1,000 ml @ 125 mls/hr Q8H IV ; Start 09/25/16 at 14:09; Stop 09/26/16 at 02:08; Status DC Fentanyl Citrate (Fentanyl 2ml Vial) 50 mcg PRN Q5MIN PRN IV pain Last administered on 09/25/16t 14:15; Start 09/25/16 at 14:15; Stop 09/26/16 at 14:20 ; Status DC Succinylcholine Chloride (Anectine) 200 mg STK-MED ONCE .ROUTE ; Start 09/25/16 at 14:20; Stop 09/25/16 at 14:21; Status DC Fentanyl Citrate (Fentanyl 2ml Vial) 100 mcg STK-MED ONCE .ROUTE ; Start at 14:54; Stop 09/25/16 at 14:55; Status DC Enoxaparin Sodium (Lovenox 40mg Syringe) 40 mg Q24H SQ ; Start 09/25/16 at 18:00 ; Stop 09/26/16 at 11:03; Status DC Sodium Chloride (Normal Saline Flush) 3 ml QSHIFT PRN IV AFTER MEDS AND BLOOD DRAWS; Start 09/25/16 at 16:30 Ringer's Solution 1,000 ml @ 100 mls/hr Q10H IV ; Start 09/25/16 at 16:25; Stop 09/25/16 at 23:51; Status DC Naloxone HCl (Narcan) 0.4 mg PRN Q2MIN PRN IV SEE INSTRUCTIONS; Start 09/25/16 at 16:30 Sodium Chloride 1,000 ml @ 25 mls/hr Q24H IV Last administered on 09/30/16t 08 :02; Start 09/25/16 at 16:25 Hydromorphone HCl 30 ml @ 0 mls/hr CONT PRN PRN IV PROTOCOL Last administered on 09/30/16 05:32; Start 09/25/16 at 16:30 Ondansetron HCl (Zofran) 4 mg PRN Q6HRS PRN IV NAUESA, 1ST CHOICE Last administered on 09/28/16 07:20; Start 09/25/16 at 16:30 Fentanyl Citrate (Fentanyl 2ml Vial) 100 mcg STK-MED ONCE .ROUTE ; Start at 17:14; Stop 09/25/16 at 17:15; Status DC Acetaminophen (Tylenol) 325 mg PRN Q6HRS PRN [place] fever >100.4 Last administered on 09/28/16 19:28; Start 09/26/16 at 14:30 Bisacodyl (Dulcolax Supp) 10 mg PRN DAILY PRN [place] CONSTIPATION; Start 09/26/16 at 14:30 Famotidine (Pepcid) 20 mg BID IVP Last administered on 09/30/16 09:59; Start 09/26/16 at 21:00 Insulin Aspart (NovoLOG) 0-5 UNITS TIDWMEALS SQ Last administered on 09/29/16 12:19; Start 09/26/16 at 17:00 Dextrose (Dextrose 50%-Water Syringe) 12.5 gm PRN Q15MIN PRN IV SEE COMMENTS; Start 09/26/16 at 15:00 Saliva Substitute (Biotene Moisturizing Mouth) 2 spray PRN Q15MIN PRN PO DRY MOUTH Last administered on 09/28/16 22:06; Start 09/28/16 at 14:00 Sodium Chloride 1,000 ml @ 75 mls/hr 1X ONCE IV Last administered on 14:45; Start 09/29/16 at 14:45; Stop 09/30/16 at 04:04; Status DC Active Scripts Active Senna S Tablet (Sennosides/Docusate Sodium) 1 Each Tablet 1 Each PO DAILY Reported Lexapro (Escitalopram Oxalate) 20 Mg Tablet 1 Tab PO DAILY Lisinopril-Hctz 20-12.5 Mg Tab (Lisinopril/Hydrochlorothiazide) 1 Each Tablet 1 Tab PO DAILY Lipitor (Atorvastatin Calcium) 20 Mg Tablet 20 Mg PO HS Ambien (Zolpidem Tartrate) 5 Mg Tablet 1 Tab PO QHS Lyrica (Pregabalin) 150 Mg Capsule 150 Mg PO BID 30 Days Buspirone Hcl 10 Mg Tablet 10 Mg PO BID Aspir 81 (Aspirin) 81 Mg Tablet.dr 1 Tab PO DAILY Vitals/I & O Vital Sign - Last 24 Hours 09/29/16 09/29/16 09/29/16 09/29/16 14:43 19:00 19:30 23:00 Temp 99.9 99.7 95.7 99.9 99.7 95.7 Pulse 83 96 89 Resp 16 14 14 B/P (MAP) 135/71 (92) 145/79 (101) 143/77 (99) Pulse Ox 100 100 100 O2 Delivery Room Air Room Air Nasal Cannula Room Air O2 Flow Rate 2.0 09/30/16 09/30/16 09/30/16 09/30/16 03:00 05:32 06:05 07:00 Temp 98.4 98.6 98.4 98.6 Pulse 88 92 Resp 14 16 B/P (MAP) 130/61 (84) 127/57 (80) Pulse Ox 99 99 99 100 O2 Delivery Room Air Nasal Cannula Nasal Cannula Nasal Cannula O2 Flow Rate 2.0 2.0 2.0 09/30/16 09/30/16 07:45 11:00 Temp 98.2 98.2 Pulse 83 Resp 18 B/P (MAP) 138/55 (82) Pulse Ox 99 O2 Delivery Nasal Cannula Nasal Cannula O2 Flow Rate 2.0 2.0 Intake and Output 09/29/16 09/29/16 09/30/16 15:00 23:00 07:00 Intake Total 80 ml 0 ml 0 ml Output Total 850 ml Balance 80 ml 0 ml -850 ml SELVIN PIMENTEL MD Sep 30, 2016 12:34
--- NOTE | 2016-09-30 14:40 | PDOC2 ---
PALLIATIVE CARE Palliative Care Note Palliative Care Consult requested by Dr. Albright to address code status and goals Diagnosis SBO: s/p ex lap on 09/25: abdominal wall mass, metastatic adenocarcinoma, ascites; small bowel obstruction secondary to adhesion involving the lower abdominal incision/malignancy, ascites, extensive miliary disease in the lower abdomen and pelvis Pain control: Dilaudid TELEMETRY REGISTERED NURSE, Patient alert. Son-Demarco at bedside. Aware of diagnosis. Both patient and son would like more discussion after final pathology results and after obtaining copy of Living Will. Received permission of patient to speak with Rena Lyons Attempted to reach Rena Lyons niece who has copy of Living Will. Message to return call. Confirmed current code status: Full Code. Plan to follow-up with [facility] oncology when discharged. Will continue to reach family as requested by patient and son--Demarco. DARLENE THORNTON Sep 30, 2016 14:40
--- NOTE | 2016-09-30 14:50 | PATHOLOGY ---
PATHOLOGY REPORT * * * * * * * * FINAL DIAGNOSIS: Fibromembranous tissue, abdominal wall mass biopsy: - METASTATIC POORLY DIFFERENTIATED ADENOCARCINOMA. SEE COMMENT. (JPM:rlm; 09/30/2016) COMMENT: Sections of the abdominal wall mass biopsy reveal a segment of focal mesothelial-lined fibromembranous tissue. There are focal solid nests of malignant cells associated with a reactive desmoplastic stroma. The malignant cells have modest amounts of pale eosinophilic cytoplasm, and possess enlarged, rounded to ovoid hyperchromatic nuclei. There is frozen section artifact. Nucleoli are visible within the nuclei in the original frozen section. The tumor shows no obvious glandular or squamous differentiation. A panel of immunohistochemical stains is obtained and yields the following results: Cytokeratin 7: Tumor cells positive. Cytokeratin 5/6: Tumor cells negative. P63: Tumor cells negative. P40: Tumor cells negative. ER: Tumor cells positive. WT1: Tumor cells show weak cytoplasmic staining. CA125: Tumor cells focally positive. The morphologic and immunophenotypic findings are supportive of the diagnosis of metastatic high-grade endometrial adenocarcinoma. The case is also examined by Dr. Rivera, who concurs with the diagnosis. Special stains performed: Immunoperoxidase stain for CK7, CK 5/6, P63, P40, ER, WT1, CA125. (JPM:rlm; 09/30/2016) REPORT ELECTRONICALLY SIGNED BY: Luis Manuel Harrison M.D. DATE/TIME: 09/30/2016 14:50 * * * * * * * * GROSS PATHOLOGY: The specimen is received fresh for intraoperative consultation and is designated "abdominal wall mass." This consists of a roughly ovoid shaped segment of red and pink-carnes soft tissue, measuring up to 0.9 cm in length and 0.4 cm in width. One broad surface is relatively smooth and appears to reveal a small carnes nodule. The specimen is bisected and submitted for frozen section. The tissue remaining from frozen section is submitted for permanent sections as A1. (JPM:mgr; 09/25/2016) FROZEN SECTION DIAGNOSIS: (Skip Harrison M.D.) Abdominal wall mass biopsy: - METASTATIC CARCINOMA. The results are reported to Dr. Carrillo in pathology. (JPM:mgr; 09/25/2016) Testing performed [place] [address] INITIAL CPT CODE(S): A; 65903, 44923, 44402, 19120, 79566, 04376, 76861, 79834, 20900 Professional services performed by [facility] at [address] [address] Technical services performed by [facility] at [address] [place] [address], [place] [address]. 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 PATIENT: MAR VELASQUEZ /AGE: 12 1940 (Age: 76) PATIENT #: [id number] ALT CASE #: SPECIMEN COLLECTION DATE: 09/25/2016 SPECIMEN RECEIVED DATE: 09/25/2016 [facility] - [address] [place] [address] - PHONE: [phone] * * * END OF REPORT * * *
[2016-09-30 15:00] VITALS: BP 149/57
--- NOTE | 2016-09-30 15:44 | PDOC ---
PROGRESS NOTES Subjective Subjective c/c - f/u of Recurrent metastatic endometrial carcinoma, stage 4 Objective Objective Vital Signs Date Time Temp Pulse Resp B/P (MAP) Pulse Ox O2 Delivery O2 Flow Rate FiO2 09/30/16 11:00 98.2 83 18 138/55 (82) 99 Nasal Cannula 2.0 98.2 Intake and Output 09/30/16 06:59 Intake Total 80 ml Output Total 850 ml Balance -770 ml Intake Oral 80 ml Output Urine Total 850 ml # Voids 8 Physical Exam Heart: Normal S1, Normal S2 General: Alert, Oriented X3 Lungs: Clear to auscultation Assessment Assessment Problems Medical Problems: (1) Abdominal pain Status: Acute (2) Nausea and vomiting Status: Acute IMPRESSION AND PLAN: 1. Recurrent metastatic endometrial carcinoma, stage 4. She was initially diagnosed with endometrial carcinoma in 2014, status post surgery, chemotherapy and radiation therapy. She received carboplatin and Taxol at [facility] by Dr. Santiago Funk. She now has evidence of progressive disease. I have advised the patient and the son regarding the surgical findings and the evidence of progressive malignancy. I will await final pathology results. I would recommend follow up with Dr. Santiago Funk regarding further palliative chemotherapy. All her questions were answered. Appreciate palloiative care consult. 2. Small-bowel obstruction, status post exploratory laparotomy and lysis of adhesions on 09/25/2016. Continue postoperative care for Dr. Johnathan Carrillo. 3. Abd pain - post-op, continue pain management. 4. Anemia, monitor hb. Comment Review of Relevant I have reviewed the following items anita (where applicable) has been applied. Labs Laboratory Tests Test 09/28/16 16:43 09/28/16 21:22 09/29/16 06:45 09/29/16 07:10 Glucose (Fingerstick) 184 mg/dL (70-99) 197 mg/dL (70-99) 169 mg/dL (70-99) White Blood Count 11.7 x10^3/uL (4.0-11.0) Red Blood Count 3.04 x10^6/uL (3.50-5.40) Hemoglobin 9.7 g/dL (12.0-15.5) Hematocrit 29.0 % (36.0-47.0) Mean Corpuscular Volume 95 fL (79-100) Mean Corpuscular Hemoglobin 32 pg (25-35) Mean Corpuscular Hemoglobin Concent 33 g/dL (31-37) Red Cell Distribution Width 14.9 % (11.5-14.5) Platelet Count 208 x10^3/uL (140-400) Neutrophils (%) (Auto) 85 % (31-73) Lymphocytes (%) (Auto) 7 % (24-48) Monocytes (%) (Auto) 8 % (0-9) Eosinophils (%) (Auto) 0 % (0-3) Basophils (%) (Auto) 0 % (0-3) Neutrophils # (Auto) 9.9 x10^3uL (1.8-7.7) Lymphocytes # (Auto) 0.8 x10^3/uL (1.0-4.8) Monocytes # (Auto) 0.9 x10^3/uL (0.0-1.1) Eosinophils # (Auto) 0.0 x10^3/uL (0.0-0.7) Basophils # (Auto) 0.0 x10^3/uL (0.0-0.2) Sodium Level 123 mmol/L (136-145) Potassium Level 5.9 mmol/L (3.5-5.1) Chloride Level 92 mmol/L (98-107) Carbon Dioxide Level 25 mmol/L (21-32) Anion Gap 6 (6-14) Blood Urea Nitrogen 14 mg/dL (7-20) Creatinine 0.7 mg/dL (0.6-1.0) Estimated GFR (Cockcroft-Gault) 98.7 BUN/Creatinine Ratio 20 (6-20) Glucose Level 176 mg/dL (70-99) Calcium Level 7.9 mg/dL (8.5-10.1) Magnesium Level 2.5 mg/dL (1.8-2.4) Total Bilirubin 0.8 mg/dL (0.2-1.0) Aspartate Amino Transf (AST/SGOT) 35 U/L (15-37) Alanine Aminotransferase (ALT/SGPT) 33 U/L (14-59) Alkaline Phosphatase 100 U/L (46-116) Total Protein 6.0 g/dL (6.4-8.2) Albumin 1.5 g/dL (3.4-5.0) Albumin/Globulin Ratio 0.3 (1.0-1.7) Test 09/29/16 11:19 09/29/16 16:02 09/29/16 21:02 09/30/16 05:25 Glucose (Fingerstick) 199 mg/dL (70-99) 160 mg/dL (70-99) 161 mg/dL (70-99) White Blood Count 10.1 x10^3/uL (4.0-11.0) Red Blood Count 3.24 x10^6/uL (3.50-5.40) Hemoglobin 10.3 g/dL (12.0-15.5) Hematocrit 30.4 % (36.0-47.0) Mean Corpuscular Volume 94 fL (79-100) Mean Corpuscular Hemoglobin 32 pg (25-35) Mean Corpuscular Hemoglobin Concent 34 g/dL (31-37) Red Cell Distribution Width 14.7 % (11.5-14.5) Platelet Count 205 x10^3/uL (140-400) Neutrophils (%) (Auto) 78 % (31-73) Lymphocytes (%) (Auto) 11 % (24-48) Monocytes (%) (Auto) 11 % (0-9) Eosinophils (%) (Auto) 0 % (0-3) Basophils (%) (Auto) 0 % (0-3) Neutrophils # (Auto) 7.9 x10^3uL (1.8-7.7) Lymphocytes # (Auto) 1.1 x10^3/uL (1.0-4.8) Monocytes # (Auto) 1.1 x10^3/uL (0.0-1.1) Eosinophils # (Auto) 0.0 x10^3/uL (0.0-0.7) Basophils # (Auto) 0.0 x10^3/uL (0.0-0.2) Sodium Level 129 mmol/L (136-145) Potassium Level 4.3 mmol/L (3.5-5.1) Chloride Level 94 mmol/L (98-107) Carbon Dioxide Level 28 mmol/L (21-32) Anion Gap 7 (6-14) Blood Urea Nitrogen 14 mg/dL (7-20) Creatinine 0.8 mg/dL (0.6-1.0) Estimated GFR (Cockcroft-Gault) 84.6 BUN/Creatinine Ratio 18 (6-20) Glucose Level 177 mg/dL (70-99) Calcium Level 8.1 mg/dL (8.5-10.1) Magnesium Level 2.1 mg/dL (1.8-2.4) Total Bilirubin 0.8 mg/dL (0.2-1.0) Aspartate Amino Transf (AST/SGOT) 28 U/L (15-37) Alanine Aminotransferase (ALT/SGPT) 29 U/L (14-59) Alkaline Phosphatase 117 U/L (46-116) Total Protein 6.5 g/dL (6.4-8.2) Albumin 1.6 g/dL (3.4-5.0) Albumin/Globulin Ratio 0.3 (1.0-1.7) Test 09/30/16 07:26 09/30/16 10:54 Glucose (Fingerstick) 163 mg/dL (70-99) 176 mg/dL (70-99) Laboratory Tests Test 09/29/16 16:02 09/29/16 21:02 09/30/16 05:25 09/30/16 07:26 Glucose (Fingerstick) 160 mg/dL (70-99) 161 mg/dL (70-99) 163 mg/dL (70-99) White Blood Count 10.1 x10^3/uL (4.0-11.0) Red Blood Count 3.24 x10^6/uL (3.50-5.40) Hemoglobin 10.3 g/dL (12.0-15.5) Hematocrit 30.4 % (36.0-47.0) Mean Corpuscular Volume 94 fL (79-100) Mean Corpuscular Hemoglobin 32 pg (25-35) Mean Corpuscular Hemoglobin Concent 34 g/dL (31-37) Red Cell Distribution Width 14.7 % (11.5-14.5) Platelet Count 205 x10^3/uL (140-400) Neutrophils (%) (Auto) 78 % (31-73) Lymphocytes (%) (Auto) 11 % (24-48) Monocytes (%) (Auto) 11 % (0-9) Eosinophils (%) (Auto) 0 % (0-3) Basophils (%) (Auto) 0 % (0-3) Neutrophils # (Auto) 7.9 x10^3uL (1.8-7.7) Lymphocytes # (Auto) 1.1 x10^3/uL (1.0-4.8) Monocytes # (Auto) 1.1 x10^3/uL (0.0-1.1) Eosinophils # (Auto) 0.0 x10^3/uL (0.0-0.7) Basophils # (Auto) 0.0 x10^3/uL (0.0-0.2) Sodium Level 129 mmol/L (136-145) Potassium Level 4.3 mmol/L (3.5-5.1) Chloride Level 94 mmol/L (98-107) Carbon Dioxide Level 28 mmol/L (21-32) Anion Gap 7 (6-14) Blood Urea Nitrogen 14 mg/dL (7-20) Creatinine 0.8 mg/dL (0.6-1.0) Estimated GFR (Cockcroft-Gault) 84.6 BUN/Creatinine Ratio 18 (6-20) Glucose Level 177 mg/dL (70-99) Calcium Level 8.1 mg/dL (8.5-10.1) Magnesium Level 2.1 mg/dL (1.8-2.4) Total Bilirubin 0.8 mg/dL (0.2-1.0) Aspartate Amino Transf (AST/SGOT) 28 U/L (15-37) Alanine Aminotransferase (ALT/SGPT) 29 U/L (14-59) Alkaline Phosphatase 117 U/L (46-116) Total Protein 6.5 g/dL (6.4-8.2) Albumin 1.6 g/dL (3.4-5.0) Albumin/Globulin Ratio 0.3 (1.0-1.7) Test 09/30/16 10:54 Glucose (Fingerstick) 176 mg/dL (70-99) Medications Current Medications Ondansetron HCl (Zofran) 4 mg PRN Q8HRS PRN IV NAUSEA/VOMITING Last administered on 09/19/16 02:59; Start 09/18/16 at 22:45; Stop 09/19/16 at 22:44 ; Status DC Fentanyl Citrate (Fentanyl 2ml Vial) 50 mcg PRN Q2HR PRN IV PAIN Last administered on 09/19/16 08:14; Start 09/18/16 at 22:45; Stop 09/19/16 at 22:44 ; Status DC Sodium Chloride 1,000 ml @ 125 mls/hr Q8H IV Last administered on 09/19/16 11 :01; Start 09/18/16 at 22:45; Stop 09/19/16 at 22:44; Status DC Hydralazine HCl (Apresoline) 10 mg PRN Q4HRS PRN IVP ELEVATED BP, SEE COMMENTS Last administered on 09/19/16 01:55; Start 09/19/16 at 01:45; Stop 09/19/16 at 12:24; Status DC Potassium Chloride 30 meq/ Sodium Chloride 1,015 ml @ 125 mls/hr 1X ONCE IV Last administered on 09/19/16 03:07; Start 09/19/16 at 01:45; Stop 09/19/16 at 09:52; Status DC Al Hydroxide/Mg Hydroxide (Mylanta Plus Xs) 15 ml 1X ONCE PO Last administered on 09/19/16 05:50; Start 09/19/16 at 06:00; Stop 09/19/16 at 06:01 ; Status DC Famotidine (Pepcid) 20 mg BID IVP Last administered on 09/24/16 09:01; Start 09/19/16 at 09:00; Stop 09/24/16 at 13:12; Status DC Acetaminophen (Tylenol) 650 mg PRN Q6HRS PRN PO FEVER Last administered on 09/25 08:43; Start 09/19/16 at 09:30; Stop 09/26/16 at 14:20; Status DC Ondansetron HCl (Zofran) 4 mg PRN Q6HRS PRN IV NAUSEA/VOMITING Last administered on 09/25/16 05:35; Start 09/19/16 at 09:30; Stop 09/27/16 at 12:26 ; Status DC Morphine Sulfate 2 mg PRN Q2HR PRN IV PAIN; Start 09/19/16 at 09:30; Stop 09/19 at 09:56; Status DC Tramadol HCl (Ultram) 50 mg PRN Q6HRS PRN PO PAIN Last administered on 09:49; Start 09/19/16 at 09:30; Stop 09/26/16 at 14:20; Status DC Hydralazine HCl (Apresoline) 10 mg PRN Q4HRS PRN IVP ELEVATED BP, SEE COMMENTS Last administered on 09/25/16 17:24; Start 09/19/16 at 09:30 Docusate Sodium (Colace) 100 mg PRN DAILY PRN PO CONSTIPATION Last administered on 09/25/16 08:43; Start 09/19/16 at 09:30; Stop 09/26/16 at 14:20 ; Status DC Barium Sulfate (Liquid E-Z Paque) 355 ml 1X ONCE PO ; Start 09/19/16 at 10:00; Stop 09/19/16 at 10:01; Status DC Barium Sulfate (Liquid E-Z Paque) 355 ml 1X ONCE PO ; Start 09/19/16 at 10:00; Stop 09/19/16 at 10:01; Status DC Morphine Sulfate 2 mg PRN Q2HR PRN IV PAIN Last administered on 09/24/16 09:09 ; Start 09/19/16 at 10:00; Stop 09/24/16 at 13:12; Status DC Throat Lozenges (Chloraseptic) 1 spray PRN Q2HR PRN PO SORE THROAT Last administered on 09/19/16 11:01; Start 09/19/16 at 10:15 Potassium Chloride/Sodium Chloride 1,000 ml @ 100 mls/hr Q10H IV Last administered on 09/20/16 01:57; Start 09/19/16 at 12:30; Stop 09/20/16 at 08:19 ; Status DC Heparin Sodium (Porcine) (Heparin Sq) 5,000 unit Q8HRS SQ Last administered on 09/30/16 14:00; Start 09/19/16 at 14:00 Amino Acids/ Glycerin/ Electrolytes 1,000 ml @ 75 mls/hr [id number] IV Last administered on 09/30/16 08:02; Start 09/20/16 at 08:30 Dextrose (Dextrose 50%-Water Syringe) 25 gm PRN Q15MIN PRN IV SEE COMMENTS Last administered on 09/20/16 11:52; Start 09/20/16 at 11:45; Stop 09/29/16 at 13:46; Status DC Iohexol (Omnipaque 350 Mg/ml) 400 ml 1X ONCE PO Last administered on t 12:37; Start 09/20/16 at 12:15; Stop 09/20/16 at 12:16; Status DC Levofloxacin/ Dextrose 100 ml @ 100 mls/hr 1X PREOP PRN IV PRIOR TO PROCEDURE ; Start 09/21/16 at 17:30; Stop 09/22/16 at 18:00; Status DC Ondansetron HCl (Zofran) 4 mg PRN Q6HRS PRN IV NAUSEA/VOMITING; Start 09/22/16 at 07:45; Stop 09/23/16 at 07:44; Status DC Fentanyl Citrate (Fentanyl 2ml Vial) 25 mcg PRN Q5MIN PRN IV MILD PAIN; Start 09/22/16 at 07:45; Stop 09/23/16 at 07:44; Status DC Fentanyl Citrate (Fentanyl 2ml Vial) 50 mcg PRN Q5MIN PRN IV MODERATE PAIN; Start 09/22/16 at 07:45; Stop 09/23/16 at 07:44; Status DC Morphine Sulfate 1 mg PRN Q10MIN PRN IV SEVERE PAIN; Start 09/22/16 at 07:45; Stop 09/23/16 at 07:44; Status DC Ringer's Solution 1,000 ml @ 30 mls/hr Q24H IV ; Start 09/22/16 at 07:45; Stop 09/22/16 at 19:44; Status DC Lidocaine HCl 2 ml PRN 1X PRN ID PRIOR TO IV START; Start 09/22/16 at 07:45; Stop 09/23/16 at 07:44; Status DC Hydromorphone HCl (Dilaudid) 0.5 mg PRN Q10MIN PRN IV SEV PAIN, Second choice; Start 09/22/16 at 07:45; Stop 09/23/16 at 07:44; Status DC Prochlorperazine Edisylate (Compazine) 5 mg PACU PRN PRN IV NAUSEA, MRX1; Start 09/22/16 at 07:45; Stop 09/23/16 at 07:44; Status DC Lorazepam (Ativan) 0.5 mg 1X ONCE IV Last administered on 09/22/16t 12:08; Start 09/22/16 at 12:00; Stop 09/22/16 at 12:03; Status DC Pantoprazole Sodium (Protonix) 40 mg DAILYAC PO Last administered on 09/25/16t 08:43; Start 09/24/16 at 13:15; Stop 09/26/16 at 14:20; Status DC Levofloxacin/ Dextrose 100 ml @ 100 mls/hr 1X PREOP ONCE IV Last administered on 09/25/16t 13:32; Start 09/25/16 at 13:30; Stop 09/25/16 at 14:29 ; Status DC Sevoflurane (Ultane) 60 ml STK-MED ONCE IH ; Start 09/25/16 at 13:40; Stop 09/25 at 13:53; Status DC Fentanyl Citrate (Fentanyl 2ml Vial) 100 mcg STK-MED ONCE .ROUTE ; Start at 13:41; Stop 09/25/16 at 13:53; Status DC Glycopyrrolate (Robinul) 1 mg STK-MED ONCE .ROUTE ; Start 09/25/16 at 13:41; Stop 09/25/16 at 13:53; Status DC Propofol 20 ml @ As Directed STK-MED ONCE IV ; Start 09/25/16 at 13:41; Stop at 13:53; Status DC Ondansetron HCl (Zofran) 4 mg STK-MED ONCE .ROUTE ; Start 09/25/16 at 13:42; Stop 09/25/16 at 13:53; Status DC Dexamethasone Sodium Phosphate (Decadron) 20 mg STK-MED ONCE .ROUTE ; Start at 13:42; Stop 09/25/16 at 13:53; Status DC Lidocaine HCl (Lidocaine Pf 2% Vial) 5 ml STK-MED ONCE .ROUTE ; Start 09/25/16 at 13:42; Stop 09/25/16 at 13:53; Status DC Ondansetron HCl (Zofran) 4 mg PRN Q6HRS PRN IV NAUSEA/VOMITING; Start 09/25/16 at 14:00; Stop 09/26/16 at 13:59; Status DC Fentanyl Citrate (Fentanyl 2ml Vial) 25 mcg PRN Q5MIN PRN IV MILD PAIN; Start 09/25/16 at 14:00; Stop 09/26/16 at 13:59; Status DC Fentanyl Citrate (Fentanyl 2ml Vial) 50 mcg PRN Q5MIN PRN IV MODERATE PAIN Last administered on 09/25/16t 17:31; Start 09/25/16 at 14:00; Stop 09/26/16 at 13:59; Status DC Morphine Sulfate 1 mg PRN Q10MIN PRN IV SEVERE PAIN; Start 09/25/16 at 14:00; Stop 09/26/16 at 13:59; Status DC Ringer's Solution 1,000 ml @ 0 mls/hr Q0M IV ; Start 09/25/16 at 13:53; Stop at 01:52; Status DC Lidocaine HCl 2 ml PRN 1X PRN ID PRIOR TO IV START; Start 09/25/16 at 14:00; Stop 09/26/16 at 13:59; Status DC Hydromorphone HCl (Dilaudid) 0.5 mg PRN Q10MIN PRN IV SEV PAIN, Second choice; Start 09/25/16 at 14:00; Stop 09/26/16 at 13:59; Status DC Prochlorperazine Edisylate (Compazine) 5 mg PACU PRN PRN IV NAUSEA, MRX1; Start 09/25/16 at 14:00; Stop 09/26/16 at 13:59; Status DC Fentanyl Citrate (Fentanyl 2ml Vial) 100 mcg STK-MED ONCE .ROUTE ; Start at 14:08; Stop 09/25/16 at 14:09; Status DC Ringer's Solution 1,000 ml @ 125 mls/hr Q8H IV ; Start 09/25/16 at 14:09; Stop 09/26/16 at 02:08; Status DC Fentanyl Citrate (Fentanyl 2ml Vial) 50 mcg PRN Q5MIN PRN IV pain Last administered on 09/25/16t 14:15; Start 09/25/16 at 14:15; Stop 09/26/16 at 14:20 ; Status DC Succinylcholine Chloride (Anectine) 200 mg STK-MED ONCE .ROUTE ; Start 09/25/16 at 14:20; Stop 09/25/16 at 14:21; Status DC Fentanyl Citrate (Fentanyl 2ml Vial) 100 mcg STK-MED ONCE .ROUTE ; Start at 14:54; Stop 09/25/16 at 14:55; Status DC Enoxaparin Sodium (Lovenox 40mg Syringe) 40 mg Q24H SQ ; Start 09/25/16 at 18:00 ; Stop 09/26/16 at 11:03; Status DC Sodium Chloride (Normal Saline Flush) 3 ml QSHIFT PRN IV AFTER MEDS AND BLOOD DRAWS; Start 09/25/16 at 16:30 Ringer's Solution 1,000 ml @ 100 mls/hr Q10H IV ; Start 09/25/16 at 16:25; Stop 09/25/16 at 23:51; Status DC Naloxone HCl (Narcan) 0.4 mg PRN Q2MIN PRN IV SEE INSTRUCTIONS; Start 09/25/16 at 16:30 Sodium Chloride 1,000 ml @ 25 mls/hr Q24H IV Last administered on 09/30/16 08 :02; Start 09/25/16 at 16:25 Hydromorphone HCl 30 ml @ 0 mls/hr CONT PRN PRN IV PROTOCOL Last administered on 09/30/16 05:32; Start 09/25/16 at 16:30 Ondansetron HCl (Zofran) 4 mg PRN Q6HRS PRN IV NAUESA, 1ST CHOICE Last administered on 09/28/16 07:20; Start 09/25/16 at 16:30 Fentanyl Citrate (Fentanyl 2ml Vial) 100 mcg STK-MED ONCE .ROUTE ; Start at 17:14; Stop 09/25/16 at 17:15; Status DC Acetaminophen (Tylenol) 325 mg PRN Q6HRS PRN VT fever >100.4 Last administered on 09/28/16 19:28; Start 09/26/16 at 14:30 Bisacodyl (Dulcolax Supp) 10 mg PRN DAILY PRN VT CONSTIPATION; Start 09/26/16 at 14:30 Famotidine (Pepcid) 20 mg BID IVP Last administered on 09/30/16 09:59; Start 09/26/16 at 21:00 Insulin Aspart (NovoLOG) 0-5 UNITS TIDWMEALS SQ Last administered on 09/29/16 12:19; Start 09/26/16 at 17:00 Dextrose (Dextrose 50%-Water Syringe) 12.5 gm PRN Q15MIN PRN IV SEE COMMENTS; Start 09/26/16 at 15:00 Saliva Substitute (Biotene Moisturizing Mouth) 2 spray PRN Q15MIN PRN PO DRY MOUTH Last administered on 09/28/16 22:06; Start 09/28/16 at 14:00 Sodium Chloride 1,000 ml @ 75 mls/hr 1X ONCE IV Last administered on 14:45; Start 09/29/16 at 14:45; Stop 09/30/16 at 04:04; Status DC Active Scripts Active Senna S Tablet (Sennosides/Docusate Sodium) 1 Each Tablet 1 Each PO DAILY Reported Lexapro (Escitalopram Oxalate) 20 Mg Tablet 1 Tab PO DAILY Lisinopril-Hctz 20-12.5 Mg Tab (Lisinopril/Hydrochlorothiazide) 1 Each Tablet 1 Tab PO DAILY Lipitor (Atorvastatin Calcium) 20 Mg Tablet 20 Mg PO HS Ambien (Zolpidem Tartrate) 5 Mg Tablet 1 Tab PO QHS Lyrica (Pregabalin) 150 Mg Capsule 150 Mg PO BID 30 Days Buspirone Hcl 10 Mg Tablet 10 Mg PO BID Aspir 81 (Aspirin) 81 Mg Tablet. 1 Tab PO DAILY Vitals/I & O Vital Sign - Last 24 Hours 09/29/16 09/29/16 09/29/16 09/30/16 19:00 19:30 23:00 03:00 Temp 99.7 95.7 98.4 99.7 95.7 98.4 Pulse 96 89 88 Resp 14 14 14 B/P (MAP) 145/79 (101) 143/77 (99) 130/61 (84) Pulse Ox 100 100 99 O2 Delivery Room Air Nasal Cannula Room Air Room Air O2 Flow Rate 2.0 09/30/16 09/30/16 09/30/16 09/30/16 05:32 06:05 07:00 07:45 Temp 98.6 98.6 Pulse 92 Resp 16 B/P (MAP) 127/57 (80) Pulse Ox 99 99 100 O2 Delivery Nasal Cannula Nasal Cannula Nasal Cannula Nasal Cannula O2 Flow Rate 2.0 2.0 2.0 2.0 09/30/16 11:00 Temp 98.2 98.2 Pulse 83 Resp 18 B/P (MAP) 138/55 (82) Pulse Ox 99 O2 Delivery Nasal Cannula O2 Flow Rate 2.0 Intake and Output 09/29/16 09/29/16 09/30/16 14:59 22:59 06:59 Intake Total 80 ml 0 ml 0 ml Output Total 850 ml Balance 80 ml 0 ml -850 ml JAIRON OSMAN MD Sep 30, 2016 15:44
[2016-09-30 19:00] VITALS: BP 146/66
[2016-09-30] MEDS: BISACODYL 10 MG SUPP.RECT. PR PRN (20:16)
[2016-09-30 23:00] VITALS: BP 109/62
[2016-10-01 03:00] VITALS: BP 152/68
[2016-10-01 03:15] LABS: BASO # 0.1 x10^3/uL (0.0-0.2); BASO % 1 % (0-3); EOS % 0 % (0-3); HEMATOCRIT 28.9 % (36.0-47.0); HEMOGLOBIN 9.8 g/dL (12.0-15.5); LYMPH % 12 % (24-48); MEAN CORPUSCULAR HEMOGLOBIN 32 pg (25-35); MEAN CORPUSCULAR HGB CONC 34 g/dL (31-37); MEAN CORPUSCULAR VOLUME 94 fL (79-100); MONO % 11 % (0-9); NEUT % 76 % (31-73); PLATELET COUNT 206 x10^3/uL (140-400); RED BLOOD COUNT 3.09 x10^6/uL (3.50-5.40); RED CELL DISTRIBUTION WIDTH 14.8 % (11.5-14.5); WHITE BLOOD COUNT 8.6 x10^3/uL (4.0-11.0)
[2016-10-01 03:40] LABS: CALCIUM 8.4 mg/dL (8.5-10.1); CREATININE 0.7 mg/dL (0.6-1.0); GFR 98.7; POTASSIUM 4.1 mmol/L (3.5-5.1)
[2016-10-01] MEDS: HEPARIN PF for SUB-Q USE 5,000 UNIT/0.5 ML VIAL. SQ SCH ×3 (05:59→23:10)
[2016-10-01 07:00] VITALS: BP 116/59
[2016-10-01] MEDS: INSULIN ASPART 300 UNITS/3 ML INSULN.PEN SQ SCH ×3 (08:00→17:00)
[2016-10-01] MEDS: FAMOTIDINE 20 MG/2 ML VIAL IVP SCH ×2 (10:17→23:09)
[2016-10-01] MEDS ORDERED: POLYVINYL ALCOHOL 1.4% OPHTH SOLUTION 15ML BOTTLE. OU PRN (10:30)
--- NOTE | 2016-10-01 10:50 | PDOC ---
Subjective: Subjective: Doing okay w/ clears, no n/v. Objective: Objective: Per RN - not much appetite, stooled yesterday. Vital Signs: Vital Signs Date Time Temp Pulse Resp B/P (MAP) Pulse Ox O2 Delivery O2 Flow Rate FiO2 10/01/16 07:00 97.8 82 116/59 (78) 98 Nasal Cannula 4.0 97.8 10/01/16 03:00 18 Labs: Laboratory Tests Test 09/30/16 10:54 09/30/16 16:50 09/30/16 23:05 10/01/16 03:05 Glucose (Fingerstick) 176 mg/dL 155 mg/dL 177 mg/dL White Blood Count 8.6 x10^3/uL Red Blood Count 3.09 x10^6/uL Hemoglobin 9.8 g/dL Hematocrit 28.9 % Mean Corpuscular Volume 94 fL Mean Corpuscular Hemoglobin 32 pg Mean Corpuscular Hemoglobin Concent 34 g/dL Red Cell Distribution Width 14.8 % Platelet Count 206 x10^3/uL Neutrophils (%) (Auto) 76 % Lymphocytes (%) (Auto) 12 % Monocytes (%) (Auto) 11 % Eosinophils (%) (Auto) 0 % Basophils (%) (Auto) 1 % Neutrophils # (Auto) 6.5 x10^3uL Lymphocytes # (Auto) 1.0 x10^3/uL Monocytes # (Auto) 0.9 x10^3/uL Eosinophils # (Auto) 0.0 x10^3/uL Basophils # (Auto) 0.1 x10^3/uL Sodium Level 130 mmol/L Potassium Level 4.1 mmol/L Chloride Level 95 mmol/L Carbon Dioxide Level 29 mmol/L Anion Gap 6 Blood Urea Nitrogen 14 mg/dL Creatinine 0.7 mg/dL Estimated GFR (Cockcroft-Gault) 98.7 Glucose Level 184 mg/dL Calcium Level 8.4 mg/dL Test 10/01/16 06:26 Glucose (Fingerstick) 177 mg/dL PE: GEN: NAD LUNGS: clear, nasal cannula HEART: RRR ABD: soft, G-tube NEURO/PSYCH: A & O 3 A/P: Malignant SBO/metastatic malignancy (likely uterine) s/p expl lap -- Tolerating a little PO. EDMOND BAIRD Oct 01, 2016 10:50
[2016-10-01 11:09] VITALS: BP 139/70
[2016-10-01] MEDS: AMINO AC 3%/ELECTROLYTE/GLYCER 1,000 ML IV SCH (11:10)
--- NOTE | 2016-10-01 12:22 | PDOC ---
SURGICAL PROGRESS NOTE Subjective Pt feels better, danyell salamanca, reports passing stools, pain controlled Vital Signs Vital Signs Date Time Temp Pulse Resp B/P (MAP) Pulse Ox O2 Delivery O2 Flow Rate FiO2 10/01/16 11:09 97.9 83 18 139/70 (93) 100 Nasal Cannula 4.0 97.9 I&O Intake and Output 10/01/16 06:59 Intake Total 60 ml Output Total 1270 ml Balance -1210 ml Intake Oral 60 ml Output Urine Total 820 ml Drainage Total 450 ml # Voids 4 # Bowel Movements 1 General: Alert, Oriented X3, Cooperative, No acute distress Abdomen: Soft, No tenderness Labs Laboratory Tests Test 09/29/16 16:02 09/29/16 21:02 09/30/16 05:25 09/30/16 07:26 Glucose (Fingerstick) 160 mg/dL (70-99) 161 mg/dL (70-99) 163 mg/dL (70-99) White Blood Count 10.1 x10^3/uL (4.0-11.0) Red Blood Count 3.24 x10^6/uL (3.50-5.40) Hemoglobin 10.3 g/dL (12.0-15.5) Hematocrit 30.4 % (36.0-47.0) Mean Corpuscular Volume 94 fL (79-100) Mean Corpuscular Hemoglobin 32 pg (25-35) Mean Corpuscular Hemoglobin Concent 34 g/dL (31-37) Red Cell Distribution Width 14.7 % (11.5-14.5) Platelet Count 205 x10^3/uL (140-400) Neutrophils (%) (Auto) 78 % (31-73) Lymphocytes (%) (Auto) 11 % (24-48) Monocytes (%) (Auto) 11 % (0-9) Eosinophils (%) (Auto) 0 % (0-3) Basophils (%) (Auto) 0 % (0-3) Neutrophils # (Auto) 7.9 x10^3uL (1.8-7.7) Lymphocytes # (Auto) 1.1 x10^3/uL (1.0-4.8) Monocytes # (Auto) 1.1 x10^3/uL (0.0-1.1) Eosinophils # (Auto) 0.0 x10^3/uL (0.0-0.7) Basophils # (Auto) 0.0 x10^3/uL (0.0-0.2) Sodium Level 129 mmol/L (136-145) Potassium Level 4.3 mmol/L (3.5-5.1) Chloride Level 94 mmol/L (98-107) Carbon Dioxide Level 28 mmol/L (21-32) Anion Gap 7 (6-14) Blood Urea Nitrogen 14 mg/dL (7-20) Creatinine 0.8 mg/dL (0.6-1.0) Estimated GFR (Cockcroft-Gault) 84.6 BUN/Creatinine Ratio 18 (6-20) Glucose Level 177 mg/dL (70-99) Calcium Level 8.1 mg/dL (8.5-10.1) Magnesium Level 2.1 mg/dL (1.8-2.4) Total Bilirubin 0.8 mg/dL (0.2-1.0) Aspartate Amino Transf (AST/SGOT) 28 U/L (15-37) Alanine Aminotransferase (ALT/SGPT) 29 U/L (14-59) Alkaline Phosphatase 117 U/L (46-116) Total Protein 6.5 g/dL (6.4-8.2) Albumin 1.6 g/dL (3.4-5.0) Albumin/Globulin Ratio 0.3 (1.0-1.7) Test 09/30/16 10:54 09/30/16 16:50 09/30/16 23:05 10/01/16 03:05 Glucose (Fingerstick) 176 mg/dL (70-99) 155 mg/dL (70-99) 177 mg/dL (70-99) White Blood Count 8.6 x10^3/uL (4.0-11.0) Red Blood Count 3.09 x10^6/uL (3.50-5.40) Hemoglobin 9.8 g/dL (12.0-15.5) Hematocrit 28.9 % (36.0-47.0) Mean Corpuscular Volume 94 fL (79-100) Mean Corpuscular Hemoglobin 32 pg (25-35) Mean Corpuscular Hemoglobin Concent 34 g/dL (31-37) Red Cell Distribution Width 14.8 % (11.5-14.5) Platelet Count 206 x10^3/uL (140-400) Neutrophils (%) (Auto) 76 % (31-73) Lymphocytes (%) (Auto) 12 % (24-48) Monocytes (%) (Auto) 11 % (0-9) Eosinophils (%) (Auto) 0 % (0-3) Basophils (%) (Auto) 1 % (0-3) Neutrophils # (Auto) 6.5 x10^3uL (1.8-7.7) Lymphocytes # (Auto) 1.0 x10^3/uL (1.0-4.8) Monocytes # (Auto) 0.9 x10^3/uL (0.0-1.1) Eosinophils # (Auto) 0.0 x10^3/uL (0.0-0.7) Basophils # (Auto) 0.1 x10^3/uL (0.0-0.2) Sodium Level 130 mmol/L (136-145) Potassium Level 4.1 mmol/L (3.5-5.1) Chloride Level 95 mmol/L (98-107) Carbon Dioxide Level 29 mmol/L (21-32) Anion Gap 6 (6-14) Blood Urea Nitrogen 14 mg/dL (7-20) Creatinine 0.7 mg/dL (0.6-1.0) Estimated GFR (Cockcroft-Gault) 98.7 Glucose Level 184 mg/dL (70-99) Calcium Level 8.4 mg/dL (8.5-10.1) Test 10/01/16 06:26 10/01/16 11:56 Glucose (Fingerstick) 177 mg/dL (70-99) 217 mg/dL (70-99) Laboratory Tests Test 09/30/16 16:50 09/30/16 23:05 10/01/16 03:05 10/01/16 06:26 Glucose (Fingerstick) 155 mg/dL (70-99) 177 mg/dL (70-99) 177 mg/dL (70-99) White Blood Count 8.6 x10^3/uL (4.0-11.0) Red Blood Count 3.09 x10^6/uL (3.50-5.40) Hemoglobin 9.8 g/dL (12.0-15.5) Hematocrit 28.9 % (36.0-47.0) Mean Corpuscular Volume 94 fL (79-100) Mean Corpuscular Hemoglobin 32 pg (25-35) Mean Corpuscular Hemoglobin Concent 34 g/dL (31-37) Red Cell Distribution Width 14.8 % (11.5-14.5) Platelet Count 206 x10^3/uL (140-400) Neutrophils (%) (Auto) 76 % (31-73) Lymphocytes (%) (Auto) 12 % (24-48) Monocytes (%) (Auto) 11 % (0-9) Eosinophils (%) (Auto) 0 % (0-3) Basophils (%) (Auto) 1 % (0-3) Neutrophils # (Auto) 6.5 x10^3uL (1.8-7.7) Lymphocytes # (Auto) 1.0 x10^3/uL (1.0-4.8) Monocytes # (Auto) 0.9 x10^3/uL (0.0-1.1) Eosinophils # (Auto) 0.0 x10^3/uL (0.0-0.7) Basophils # (Auto) 0.1 x10^3/uL (0.0-0.2) Sodium Level 130 mmol/L (136-145) Potassium Level 4.1 mmol/L (3.5-5.1) Chloride Level 95 mmol/L (98-107) Carbon Dioxide Level 29 mmol/L (21-32) Anion Gap 6 (6-14) Blood Urea Nitrogen 14 mg/dL (7-20) Creatinine 0.7 mg/dL (0.6-1.0) Estimated GFR (Cockcroft-Gault) 98.7 Glucose Level 184 mg/dL (70-99) Calcium Level 8.4 mg/dL (8.5-10.1) Test 10/01/16 11:56 Glucose (Fingerstick) 217 mg/dL (70-99) Problem List Problems Medical Problems: (1) Abdominal pain Status: Acute (2) Nausea and vomiting Status: Acute Assessment/Plan s/p xlap ADAT cont G-tube Problems: MALATHI FREITAS MD Oct 01, 2016 12:22
--- NOTE | 2016-10-01 12:44 | PDOC ---
PROGRESS NOTES Chief Complaint Chief Complaint Abdominal pain, recurrent SBO ASSESSMENT AND PLAN: 1. 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 Pain control: Dilaudid READINESS PARAPROFESSIONAL, 3. Nutrition: on PPN for now. 4. HTN/HLD: well controlled; hydralazine IV PRN 5. CAD: hx CABG. stable 6. DM2: sl worse since surgery. monitor with ISS 7. Hypokalemia/hyperkalemia 8. Hyponatremia: plan: fu with sx, on clear liquid now PPN fu with gi ALSO ON NS now READINESS PARAPROFESSIONAL for pain control dvt, gi ppx talked to onco, pt will fu with her own onco in after DC for chemo talked to pt about plan, pt has limited understanding, will get PAT consult pt has very low appetite, consider TPN, nutrition consult, then can dc PPN, also consider dc READINESS PARAPROFESSIONAL since not using it for SNF CONSULT History of Present Illness History of Present Illness ROS: no chills, sob or chest pain has flatus, 1 time BM 09/30 abd pain better, 5/10 , on READINESS PARAPROFESSIONAL, but not using much low na better high K better T 100.1 Vitals Vitals Vital Signs Date Time Temp Pulse Resp B/P (MAP) Pulse Ox O2 Delivery O2 Flow Rate FiO2 10/01/16 11:09 97.9 83 18 139/70 (93) 100 Nasal Cannula 4.0 97.9 Physical Exam General: Alert, Oriented X3, Cooperative, No acute distress Heart: Normal S1, Normal S2 Lungs: Clear, Other (no r/r/w) Abdomen: Soft, No tenderness Extremities: No edema Skin: No rashes, No breakdown Labs LABS Laboratory Tests Test 09/30/16 16:50 09/30/16 23:05 10/01/16 03:05 10/01/16 06:26 Glucose (Fingerstick) 155 mg/dL (70-99) 177 mg/dL (70-99) 177 mg/dL (70-99) White Blood Count 8.6 x10^3/uL (4.0-11.0) Red Blood Count 3.09 x10^6/uL (3.50-5.40) Hemoglobin 9.8 g/dL (12.0-15.5) Hematocrit 28.9 % (36.0-47.0) Mean Corpuscular Volume 94 fL (79-100) Mean Corpuscular Hemoglobin 32 pg (25-35) Mean Corpuscular Hemoglobin Concent 34 g/dL (31-37) Red Cell Distribution Width 14.8 % (11.5-14.5) Platelet Count 206 x10^3/uL (140-400) Neutrophils (%) (Auto) 76 % (31-73) Lymphocytes (%) (Auto) 12 % (24-48) Monocytes (%) (Auto) 11 % (0-9) Eosinophils (%) (Auto) 0 % (0-3) Basophils (%) (Auto) 1 % (0-3) Neutrophils # (Auto) 6.5 x10^3uL (1.8-7.7) Lymphocytes # (Auto) 1.0 x10^3/uL (1.0-4.8) Monocytes # (Auto) 0.9 x10^3/uL (0.0-1.1) Eosinophils # (Auto) 0.0 x10^3/uL (0.0-0.7) Basophils # (Auto) 0.1 x10^3/uL (0.0-0.2) Sodium Level 130 mmol/L (136-145) Potassium Level 4.1 mmol/L (3.5-5.1) Chloride Level 95 mmol/L (98-107) Carbon Dioxide Level 29 mmol/L (21-32) Anion Gap 6 (6-14) Blood Urea Nitrogen 14 mg/dL (7-20) Creatinine 0.7 mg/dL (0.6-1.0) Estimated GFR (Cockcroft-Gault) 98.7 Glucose Level 184 mg/dL (70-99) Calcium Level 8.4 mg/dL (8.5-10.1) Test 10/01/16 11:56 Glucose (Fingerstick) 217 mg/dL (70-99) Assessment and Plan Assessmemt and Plan Problems Medical Problems: (1) Abdominal pain Status: Acute (2) Nausea and vomiting Status: Acute Problems: Comment Review of Relevant I have reviewed the following items anita (where applicable) has been applied. Labs Laboratory Tests Test 09/29/16 16:02 09/29/16 21:02 09/30/16 05:25 09/30/16 07:26 Glucose (Fingerstick) 160 mg/dL (70-99) 161 mg/dL (70-99) 163 mg/dL (70-99) White Blood Count 10.1 x10^3/uL (4.0-11.0) Red Blood Count 3.24 x10^6/uL (3.50-5.40) Hemoglobin 10.3 g/dL (12.0-15.5) Hematocrit 30.4 % (36.0-47.0) Mean Corpuscular Volume 94 fL (79-100) Mean Corpuscular Hemoglobin 32 pg (25-35) Mean Corpuscular Hemoglobin Concent 34 g/dL (31-37) Red Cell Distribution Width 14.7 % (11.5-14.5) Platelet Count 205 x10^3/uL (140-400) Neutrophils (%) (Auto) 78 % (31-73) Lymphocytes (%) (Auto) 11 % (24-48) Monocytes (%) (Auto) 11 % (0-9) Eosinophils (%) (Auto) 0 % (0-3) Basophils (%) (Auto) 0 % (0-3) Neutrophils # (Auto) 7.9 x10^3uL (1.8-7.7) Lymphocytes # (Auto) 1.1 x10^3/uL (1.0-4.8) Monocytes # (Auto) 1.1 x10^3/uL (0.0-1.1) Eosinophils # (Auto) 0.0 x10^3/uL (0.0-0.7) Basophils # (Auto) 0.0 x10^3/uL (0.0-0.2) Sodium Level 129 mmol/L (136-145) Potassium Level 4.3 mmol/L (3.5-5.1) Chloride Level 94 mmol/L (98-107) Carbon Dioxide Level 28 mmol/L (21-32) Anion Gap 7 (6-14) Blood Urea Nitrogen 14 mg/dL (7-20) Creatinine 0.8 mg/dL (0.6-1.0) Estimated GFR (Cockcroft-Gault) 84.6 BUN/Creatinine Ratio 18 (6-20) Glucose Level 177 mg/dL (70-99) Calcium Level 8.1 mg/dL (8.5-10.1) Magnesium Level 2.1 mg/dL (1.8-2.4) Total Bilirubin 0.8 mg/dL (0.2-1.0) Aspartate Amino Transf (AST/SGOT) 28 U/L (15-37) Alanine Aminotransferase (ALT/SGPT) 29 U/L (14-59) Alkaline Phosphatase 117 U/L (46-116) Total Protein 6.5 g/dL (6.4-8.2) Albumin 1.6 g/dL (3.4-5.0) Albumin/Globulin Ratio 0.3 (1.0-1.7) Test 09/30/16 10:54 09/30/16 16:50 09/30/16 23:05 10/01/16 03:05 Glucose (Fingerstick) 176 mg/dL (70-99) 155 mg/dL (70-99) 177 mg/dL (70-99) White Blood Count 8.6 x10^3/uL (4.0-11.0) Red Blood Count 3.09 x10^6/uL (3.50-5.40) Hemoglobin 9.8 g/dL (12.0-15.5) Hematocrit 28.9 % (36.0-47.0) Mean Corpuscular Volume 94 fL (79-100) Mean Corpuscular Hemoglobin 32 pg (25-35) Mean Corpuscular Hemoglobin Concent 34 g/dL (31-37) Red Cell Distribution Width 14.8 % (11.5-14.5) Platelet Count 206 x10^3/uL (140-400) Neutrophils (%) (Auto) 76 % (31-73) Lymphocytes (%) (Auto) 12 % (24-48) Monocytes (%) (Auto) 11 % (0-9) Eosinophils (%) (Auto) 0 % (0-3) Basophils (%) (Auto) 1 % (0-3) Neutrophils # (Auto) 6.5 x10^3uL (1.8-7.7) Lymphocytes # (Auto) 1.0 x10^3/uL (1.0-4.8) Monocytes # (Auto) 0.9 x10^3/uL (0.0-1.1) Eosinophils # (Auto) 0.0 x10^3/uL (0.0-0.7) Basophils # (Auto) 0.1 x10^3/uL (0.0-0.2) Sodium Level 130 mmol/L (136-145) Potassium Level 4.1 mmol/L (3.5-5.1) Chloride Level 95 mmol/L (98-107) Carbon Dioxide Level 29 mmol/L (21-32) Anion Gap 6 (6-14) Blood Urea Nitrogen 14 mg/dL (7-20) Creatinine 0.7 mg/dL (0.6-1.0) Estimated GFR (Cockcroft-Gault) 98.7 Glucose Level 184 mg/dL (70-99) Calcium Level 8.4 mg/dL (8.5-10.1) Test 10/01/16 06:26 10/01/16 11:56 Glucose (Fingerstick) 177 mg/dL (70-99) 217 mg/dL (70-99) Laboratory Tests Test 09/30/16 16:50 09/30/16 23:05 10/01/16 03:05 10/01/16 06:26 Glucose (Fingerstick) 155 mg/dL (70-99) 177 mg/dL (70-99) 177 mg/dL (70-99) White Blood Count 8.6 x10^3/uL (4.0-11.0) Red Blood Count 3.09 x10^6/uL (3.50-5.40) Hemoglobin 9.8 g/dL (12.0-15.5) Hematocrit 28.9 % (36.0-47.0) Mean Corpuscular Volume 94 fL (79-100) Mean Corpuscular Hemoglobin 32 pg (25-35) Mean Corpuscular Hemoglobin Concent 34 g/dL (31-37) Red Cell Distribution Width 14.8 % (11.5-14.5) Platelet Count 206 x10^3/uL (140-400) Neutrophils (%) (Auto) 76 % (31-73) Lymphocytes (%) (Auto) 12 % (24-48) Monocytes (%) (Auto) 11 % (0-9) Eosinophils (%) (Auto) 0 % (0-3) Basophils (%) (Auto) 1 % (0-3) Neutrophils # (Auto) 6.5 x10^3uL (1.8-7.7) Lymphocytes # (Auto) 1.0 x10^3/uL (1.0-4.8) Monocytes # (Auto) 0.9 x10^3/uL (0.0-1.1) Eosinophils # (Auto) 0.0 x10^3/uL (0.0-0.7) Basophils # (Auto) 0.1 x10^3/uL (0.0-0.2) Sodium Level 130 mmol/L (136-145) Potassium Level 4.1 mmol/L (3.5-5.1) Chloride Level 95 mmol/L (98-107) Carbon Dioxide Level 29 mmol/L (21-32) Anion Gap 6 (6-14) Blood Urea Nitrogen 14 mg/dL (7-20) Creatinine 0.7 mg/dL (0.6-1.0) Estimated GFR (Cockcroft-Gault) 98.7 Glucose Level 184 mg/dL (70-99) Calcium Level 8.4 mg/dL (8.5-10.1) Test 10/01/16 11:56 Glucose (Fingerstick) 217 mg/dL (70-99) Medications Current Medications Ondansetron HCl (Zofran) 4 mg PRN Q8HRS PRN IV NAUSEA/VOMITING Last administered on 09/19/16 02:59; Start 09/18/16 at 22:45; Stop 09/19/16 at 22:44 ; Status DC Fentanyl Citrate (Fentanyl 2ml Vial) 50 mcg PRN Q2HR PRN IV PAIN Last administered on 09/19/16 08:14; Start 09/18/16 at 22:45; Stop 09/19/16 at 22:44 ; Status DC Sodium Chloride 1,000 ml @ 125 mls/hr Q8H IV Last administered on 09/19/16 11 :01; Start 09/18/16 at 22:45; Stop 09/19/16 at 22:44; Status DC Hydralazine HCl (Apresoline) 10 mg PRN Q4HRS PRN IVP ELEVATED BP, SEE COMMENTS Last administered on 09/19/16 01:55; Start 09/19/16 at 01:45; Stop 09/19/16 at 12:24; Status DC Potassium Chloride 30 meq/ Sodium Chloride 1,015 ml @ 125 mls/hr 1X ONCE IV Last administered on 09/19/16 03:07; Start 09/19/16 at 01:45; Stop 09/19/16 at 09:52; Status DC Al Hydroxide/Mg Hydroxide (Mylanta Plus Xs) 15 ml 1X ONCE PO Last administered on 09/19/16 05:50; Start 09/19/16 at 06:00; Stop 09/19/16 at 06:01 ; Status DC Famotidine (Pepcid) 20 mg BID IVP Last administered on 09/24/16 09:01; Start 09/19/16 at 09:00; Stop 09/24/16 at 13:12; Status DC Acetaminophen (Tylenol) 650 mg PRN Q6HRS PRN PO FEVER Last administered on 09/25 08:43; Start 09/19/16 at 09:30; Stop 09/26/16 at 14:20; Status DC Ondansetron HCl (Zofran) 4 mg PRN Q6HRS PRN IV NAUSEA/VOMITING Last administered on 09/25/16 05:35; Start 09/19/16 at 09:30; Stop 09/27/16 at 12:26 ; Status DC Morphine Sulfate 2 mg PRN Q2HR PRN IV PAIN; Start 09/19/16 at 09:30; Stop 09/19 at 09:56; Status DC Tramadol HCl (Ultram) 50 mg PRN Q6HRS PRN PO PAIN Last administered on 09:49; Start 09/19/16 at 09:30; Stop 09/26/16 at 14:20; Status DC Hydralazine HCl (Apresoline) 10 mg PRN Q4HRS PRN IVP ELEVATED BP, SEE COMMENTS Last administered on 09/25/16 17:24; Start 09/19/16 at 09:30 Docusate Sodium (Colace) 100 mg PRN DAILY PRN PO CONSTIPATION Last administered on 09/25/16 08:43; Start 09/19/16 at 09:30; Stop 09/26/16 at 14:20 ; Status DC Barium Sulfate (Liquid E-Z Paque) 355 ml 1X ONCE PO ; Start 09/19/16 at 10:00; Stop 09/19/16 at 10:01; Status DC Barium Sulfate (Liquid E-Z Paque) 355 ml 1X ONCE PO ; Start 09/19/16 at 10:00; Stop 09/19/16 at 10:01; Status DC Morphine Sulfate 2 mg PRN Q2HR PRN IV PAIN Last administered on 09/24/16 09:09 ; Start 09/19/16 at 10:00; Stop 09/24/16 at 13:12; Status DC Throat Lozenges (Chloraseptic) 1 spray PRN Q2HR PRN PO SORE THROAT Last administered on 09/19/16 11:01; Start 09/19/16 at 10:15 Potassium Chloride/Sodium Chloride 1,000 ml @ 100 mls/hr Q10H IV Last administered on 09/20/16 01:57; Start 09/19/16 at 12:30; Stop 09/20/16 at 08:19 ; Status DC Heparin Sodium (Porcine) (Heparin Sq) 5,000 unit Q8HRS SQ Last administered on 10/01/16 05:59; Start 09/19/16 at 14:00 Amino Acids/ Glycerin/ Electrolytes 1,000 ml @ 75 mls/hr [id number] IV Last administered on 09/30/16 22:21; Start 09/20/16 at 08:30 Dextrose (Dextrose 50%-Water Syringe) 25 gm PRN Q15MIN PRN IV SEE COMMENTS Last administered on 09/20/16 11:52; Start 09/20/16 at 11:45; Stop 09/29/16 at 13:46; Status DC Iohexol (Omnipaque 350 Mg/ml) 400 ml 1X ONCE PO Last administered on 12:37; Start 09/20/16 at 12:15; Stop 09/20/16 at 12:16; Status DC Levofloxacin/ Dextrose 100 ml @ 100 mls/hr 1X PREOP PRN IV PRIOR TO PROCEDURE ; Start 09/21/16 at 17:30; Stop 09/22/16 at 18:00; Status DC Ondansetron HCl (Zofran) 4 mg PRN Q6HRS PRN IV NAUSEA/VOMITING; Start 09/22/16 at 07:45; Stop 09/23/16 at 07:44; Status DC Fentanyl Citrate (Fentanyl 2ml Vial) 25 mcg PRN Q5MIN PRN IV MILD PAIN; Start 09/22/16 at 07:45; Stop 09/23/16 at 07:44; Status DC Fentanyl Citrate (Fentanyl 2ml Vial) 50 mcg PRN Q5MIN PRN IV MODERATE PAIN; Start 09/22/16 at 07:45; Stop 09/23/16 at 07:44; Status DC Morphine Sulfate 1 mg PRN Q10MIN PRN IV SEVERE PAIN; Start 09/22/16 at 07:45; Stop 09/23/16 at 07:44; Status DC Ringer's Solution 1,000 ml @ 30 mls/hr Q24H IV ; Start 09/22/16 at 07:45; Stop 09/22/16 at 19:44; Status DC Lidocaine HCl 2 ml PRN 1X PRN ID PRIOR TO IV START; Start 09/22/16 at 07:45; Stop 09/23/16 at 07:44; Status DC Hydromorphone HCl (Dilaudid) 0.5 mg PRN Q10MIN PRN IV SEV PAIN, Second choice; Start 09/22/16 at 07:45; Stop 09/23/16 at 07:44; Status DC Prochlorperazine Edisylate (Compazine) 5 mg PACU PRN PRN IV NAUSEA, MRX1; Start 09/22/16 at 07:45; Stop 09/23/16 at 07:44; Status DC Lorazepam (Ativan) 0.5 mg 1X ONCE IV Last administered on 09/22/16 12:08; Start 09/22/16 at 12:00; Stop 09/22/16 at 12:03; Status DC Pantoprazole Sodium (Protonix) 40 mg DAILYAC PO Last administered on 09/25/16 08:43; Start 09/24/16 at 13:15; Stop 09/26/16 at 14:20; Status DC Levofloxacin/ Dextrose 100 ml @ 100 mls/hr 1X PREOP ONCE IV Last administered on 09/25/16 13:32; Start 09/25/16 at 13:30; Stop 09/25/16 at 14:29 ; Status DC Sevoflurane (Ultane) 60 ml STK-MED ONCE IH ; Start 09/25/16 at 13:40; Stop 09/25 at 13:53; Status DC Fentanyl Citrate (Fentanyl 2ml Vial) 100 mcg STK-MED ONCE .ROUTE ; Start at 13:41; Stop 09/25/16 at 13:53; Status DC Glycopyrrolate (Robinul) 1 mg STK-MED ONCE .ROUTE ; Start 09/25/16 at 13:41; Stop 09/25/16 at 13:53; Status DC Propofol 20 ml @ As Directed STK-MED ONCE IV ; Start 09/25/16 at 13:41; Stop at 13:53; Status DC Ondansetron HCl (Zofran) 4 mg STK-MED ONCE .ROUTE ; Start 09/25/16 at 13:42; Stop 09/25/16 at 13:53; Status DC Dexamethasone Sodium Phosphate (Decadron) 20 mg STK-MED ONCE .ROUTE ; Start at 13:42; Stop 09/25/16 at 13:53; Status DC Lidocaine HCl (Lidocaine Pf 2% Vial) 5 ml STK-MED ONCE .ROUTE ; Start 09/25/16 at 13:42; Stop 09/25/16 at 13:53; Status DC Ondansetron HCl (Zofran) 4 mg PRN Q6HRS PRN IV NAUSEA/VOMITING; Start 09/25/16 at 14:00; Stop 09/26/16 at 13:59; Status DC Fentanyl Citrate (Fentanyl 2ml Vial) 25 mcg PRN Q5MIN PRN IV MILD PAIN; Start 09/25/16 at 14:00; Stop 09/26/16 at 13:59; Status DC Fentanyl Citrate (Fentanyl 2ml Vial) 50 mcg PRN Q5MIN PRN IV MODERATE PAIN Last administered on 09/25/16t 17:31; Start 09/25/16 at 14:00; Stop 09/26/16 at 13:59; Status DC Morphine Sulfate 1 mg PRN Q10MIN PRN IV SEVERE PAIN; Start 09/25/16 at 14:00; Stop 09/26/16 at 13:59; Status DC Ringer's Solution 1,000 ml @ 0 mls/hr Q0M IV ; Start 09/25/16 at 13:53; Stop at 01:52; Status DC Lidocaine HCl 2 ml PRN 1X PRN ID PRIOR TO IV START; Start 09/25/16 at 14:00; Stop 09/26/16 at 13:59; Status DC Hydromorphone HCl (Dilaudid) 0.5 mg PRN Q10MIN PRN IV SEV PAIN, Second choice; Start 09/25/16 at 14:00; Stop 09/26/16 at 13:59; Status DC Prochlorperazine Edisylate (Compazine) 5 mg PACU PRN PRN IV NAUSEA, MRX1; Start 09/25/16 at 14:00; Stop 09/26/16 at 13:59; Status DC Fentanyl Citrate (Fentanyl 2ml Vial) 100 mcg STK-MED ONCE .ROUTE ; Start at 14:08; Stop 09/25/16 at 14:09; Status DC Ringer's Solution 1,000 ml @ 125 mls/hr Q8H IV ; Start 09/25/16 at 14:09; Stop 09/26/16 at 02:08; Status DC Fentanyl Citrate (Fentanyl 2ml Vial) 50 mcg PRN Q5MIN PRN IV pain Last administered on 09/25/16t 14:15; Start 09/25/16 at 14:15; Stop 09/26/16 at 14:20 ; Status DC Succinylcholine Chloride (Anectine) 200 mg STK-MED ONCE .ROUTE ; Start 09/25/16 at 14:20; Stop 09/25/16 at 14:21; Status DC Fentanyl Citrate (Fentanyl 2ml Vial) 100 mcg STK-MED ONCE .ROUTE ; Start at 14:54; Stop 09/25/16 at 14:55; Status DC Enoxaparin Sodium (Lovenox 40mg Syringe) 40 mg Q24H SQ ; Start 09/25/16 at 18:00 ; Stop 09/26/16 at 11:03; Status DC Sodium Chloride (Normal Saline Flush) 3 ml QSHIFT PRN IV AFTER MEDS AND BLOOD DRAWS; Start 09/25/16 at 16:30 Ringer's Solution 1,000 ml @ 100 mls/hr Q10H IV ; Start 09/25/16 at 16:25; Stop 09/25/16 at 23:51; Status DC Naloxone HCl (Narcan) 0.4 mg PRN Q2MIN PRN IV SEE INSTRUCTIONS; Start 09/25/16 at 16:30 Sodium Chloride 1,000 ml @ 25 mls/hr Q24H IV Last administered on 09/30/16 08 :02; Start 09/25/16 at 16:25 Hydromorphone HCl 30 ml @ 0 mls/hr CONT PRN PRN IV PROTOCOL Last administered on 09/30/16 05:32; Start 09/25/16 at 16:30 Ondansetron HCl (Zofran) 4 mg PRN Q6HRS PRN IV NAUESA, 1ST CHOICE Last administered on 09/28/16 07:20; Start 09/25/16 at 16:30 Fentanyl Citrate (Fentanyl 2ml Vial) 100 mcg STK-MED ONCE .ROUTE ; Start at 17:14; Stop 09/25/16 at 17:15; Status DC Acetaminophen (Tylenol) 325 mg PRN Q6HRS PRN MN fever >100.4 Last administered on 09/28/16 19:28; Start 09/26/16 at 14:30 Bisacodyl (Dulcolax Supp) 10 mg PRN DAILY PRN MN CONSTIPATION Last administered on 09/30/16 20:16; Start 09/26/16 at 14:30 Famotidine (Pepcid) 20 mg BID IVP Last administered on 10/01/16 10:17; Start 09/26/16 at 21:00 Insulin Aspart (NovoLOG) 0-5 UNITS TIDWMEALS SQ Last administered on 09/29/16 12:19; Start 09/26/16 at 17:00 Dextrose (Dextrose 50%-Water Syringe) 12.5 gm PRN Q15MIN PRN IV SEE COMMENTS; Start 09/26/16 at 15:00 Saliva Substitute (Biotene Moisturizing Mouth) 2 spray PRN Q15MIN PRN PO DRY MOUTH Last administered on 09/28/16 22:06; Start 09/28/16 at 14:00 Sodium Chloride 1,000 ml @ 75 mls/hr 1X ONCE IV Last administered on 14:45; Start 09/29/16 at 14:45; Stop 09/30/16 at 04:04; Status DC Artificial Tears (Artificial Tears) 1 drop PRN Q15MIN PRN OU DRY EYE; Start at 10:30 Active Scripts Active Senna S Tablet (Sennosides/Docusate Sodium) 1 Each Tablet 1 Each PO DAILY Reported Lexapro (Escitalopram Oxalate) 20 Mg Tablet 1 Tab PO DAILY Lisinopril-Hctz 20-12.5 Mg Tab (Lisinopril/Hydrochlorothiazide) 1 Each Tablet 1 Tab PO DAILY Lipitor (Atorvastatin Calcium) 20 Mg Tablet 20 Mg PO HS Ambien (Zolpidem Tartrate) 5 Mg Tablet 1 Tab PO QHS Lyrica (Pregabalin) 150 Mg Capsule 150 Mg PO BID 30 Days Buspirone Hcl 10 Mg Tablet 10 Mg PO BID Aspir 81 (Aspirin) 81 Mg Tablet. 1 Tab PO DAILY Vitals/I & O Vital Sign - Last 24 Hours 09/30/16 09/30/16 09/30/16 09/30/16 15:00 19:00 20:00 23:00 Temp 98.2 100.3 99.6 98.2 100.3 99.6 Pulse 94 91 84 Resp 18 18 18 B/P (MAP) 149/57 (87) 146/66 (92) 109/62 (78) Pulse Ox 99 96 98 O2 Delivery Nasal Cannula Nasal Cannula Nasal Cannula Nasal Cannula O2 Flow Rate 2.0 4.0 4.0 4.0 10/01/16 10/01/16 10/01/16 03:00 07:00 11:09 Temp 100.0 97.8 97.9 100.0 97.8 97.9 Pulse 85 82 83 Resp 18 B/P (MAP) 152/68 (96) 116/59 (78) 139/70 (93) Pulse Ox 100 98 100 O2 Delivery Nasal Cannula Nasal Cannula Nasal Cannula O2 Flow Rate 4.0 4.0 4.0 Intake and Output 09/30/16 09/30/16 10/01/16 15:00 23:00 07:00 Intake Total 60 ml Output Total 600 ml 670 ml Balance -540 ml -670 ml SELVIN PIMENTEL MD Oct 01, 2016 12:44
[2016-10-01] MEDS: IV NORMAL SALINE 1000ML BAG 1,000 ML IV SCH (13:15)
--- NOTE | 2016-10-01 13:25 | PDOC ---
PROGRESS NOTES Subjective Subjective c/c - f/u of Recurrent metastatic endometrial carcinoma, stage 4 ROS - abd pain stable Objective Objective Vital Signs Date Time Temp Pulse Resp B/P (MAP) Pulse Ox O2 Delivery O2 Flow Rate FiO2 10/01/16 11:09 97.9 83 18 139/70 (93) 100 Nasal Cannula 4.0 97.9 Intake and Output 10/01/16 07:00 Intake Total 60 ml Output Total 1270 ml Balance -1210 ml Intake Oral 60 ml Output Urine Total 820 ml Drainage Total 450 ml # Voids 4 # Bowel Movements 1 Physical Exam Heart: Normal S1, Normal S2 General: Alert, Oriented X3 Lungs: Clear to auscultation Assessment Assessment Problems Medical Problems: (1) Abdominal pain Status: Acute (2) Nausea and vomiting Status: Acute IMPRESSION AND PLAN: 1. Recurrent metastatic endometrial carcinoma, stage 4. She was initially diagnosed with endometrial carcinoma in 2014, status post surgery, chemotherapy and radiation therapy. She received carboplatin and Taxol at [facility] by Dr. Santiago Funk. She now has evidence of progressive disease. I have advised the patient and the son regarding the surgical findings and the evidence of progressive malignancy. I will await final pathology results. I would recommend follow up with Dr. Santiago Funk regarding further palliative chemotherapy. All her questions were answered. Appreciate palliative care consult. 2. Small-bowel obstruction, status post exploratory laparotomy and lysis of adhesions on 09/25/2016. Continue postoperative care for Dr. Johnathan Carrillo. 3. Abd pain - post-op, continue pain management. 4. Anemia, monitor hb.Stable 9.8 Comment Review of Relevant I have reviewed the following items anita (where applicable) has been applied. Labs Laboratory Tests Test 09/29/16 16:02 09/29/16 21:02 09/30/16 05:25 09/30/16 07:26 Glucose (Fingerstick) 160 mg/dL (70-99) 161 mg/dL (70-99) 163 mg/dL (70-99) White Blood Count 10.1 x10^3/uL (4.0-11.0) Red Blood Count 3.24 x10^6/uL (3.50-5.40) Hemoglobin 10.3 g/dL (12.0-15.5) Hematocrit 30.4 % (36.0-47.0) Mean Corpuscular Volume 94 fL (79-100) Mean Corpuscular Hemoglobin 32 pg (25-35) Mean Corpuscular Hemoglobin Concent 34 g/dL (31-37) Red Cell Distribution Width 14.7 % (11.5-14.5) Platelet Count 205 x10^3/uL (140-400) Neutrophils (%) (Auto) 78 % (31-73) Lymphocytes (%) (Auto) 11 % (24-48) Monocytes (%) (Auto) 11 % (0-9) Eosinophils (%) (Auto) 0 % (0-3) Basophils (%) (Auto) 0 % (0-3) Neutrophils # (Auto) 7.9 x10^3uL (1.8-7.7) Lymphocytes # (Auto) 1.1 x10^3/uL (1.0-4.8) Monocytes # (Auto) 1.1 x10^3/uL (0.0-1.1) Eosinophils # (Auto) 0.0 x10^3/uL (0.0-0.7) Basophils # (Auto) 0.0 x10^3/uL (0.0-0.2) Sodium Level 129 mmol/L (136-145) Potassium Level 4.3 mmol/L (3.5-5.1) Chloride Level 94 mmol/L (98-107) Carbon Dioxide Level 28 mmol/L (21-32) Anion Gap 7 (6-14) Blood Urea Nitrogen 14 mg/dL (7-20) Creatinine 0.8 mg/dL (0.6-1.0) Estimated GFR (Cockcroft-Gault) 84.6 BUN/Creatinine Ratio 18 (6-20) Glucose Level 177 mg/dL (70-99) Calcium Level 8.1 mg/dL (8.5-10.1) Magnesium Level 2.1 mg/dL (1.8-2.4) Total Bilirubin 0.8 mg/dL (0.2-1.0) Aspartate Amino Transf (AST/SGOT) 28 U/L (15-37) Alanine Aminotransferase (ALT/SGPT) 29 U/L (14-59) Alkaline Phosphatase 117 U/L (46-116) Total Protein 6.5 g/dL (6.4-8.2) Albumin 1.6 g/dL (3.4-5.0) Albumin/Globulin Ratio 0.3 (1.0-1.7) Test 09/30/16 10:54 09/30/16 16:50 09/30/16 23:05 10/01/16 03:05 Glucose (Fingerstick) 176 mg/dL (70-99) 155 mg/dL (70-99) 177 mg/dL (70-99) White Blood Count 8.6 x10^3/uL (4.0-11.0) Red Blood Count 3.09 x10^6/uL (3.50-5.40) Hemoglobin 9.8 g/dL (12.0-15.5) Hematocrit 28.9 % (36.0-47.0) Mean Corpuscular Volume 94 fL (79-100) Mean Corpuscular Hemoglobin 32 pg (25-35) Mean Corpuscular Hemoglobin Concent 34 g/dL (31-37) Red Cell Distribution Width 14.8 % (11.5-14.5) Platelet Count 206 x10^3/uL (140-400) Neutrophils (%) (Auto) 76 % (31-73) Lymphocytes (%) (Auto) 12 % (24-48) Monocytes (%) (Auto) 11 % (0-9) Eosinophils (%) (Auto) 0 % (0-3) Basophils (%) (Auto) 1 % (0-3) Neutrophils # (Auto) 6.5 x10^3uL (1.8-7.7) Lymphocytes # (Auto) 1.0 x10^3/uL (1.0-4.8) Monocytes # (Auto) 0.9 x10^3/uL (0.0-1.1) Eosinophils # (Auto) 0.0 x10^3/uL (0.0-0.7) Basophils # (Auto) 0.1 x10^3/uL (0.0-0.2) Sodium Level 130 mmol/L (136-145) Potassium Level 4.1 mmol/L (3.5-5.1) Chloride Level 95 mmol/L (98-107) Carbon Dioxide Level 29 mmol/L (21-32) Anion Gap 6 (6-14) Blood Urea Nitrogen 14 mg/dL (7-20) Creatinine 0.7 mg/dL (0.6-1.0) Estimated GFR (Cockcroft-Gault) 98.7 Glucose Level 184 mg/dL (70-99) Calcium Level 8.4 mg/dL (8.5-10.1) Test 10/01/16 06:26 10/01/16 11:56 Glucose (Fingerstick) 177 mg/dL (70-99) 217 mg/dL (70-99) Laboratory Tests Test 09/30/16 16:50 09/30/16 23:05 10/01/16 03:05 10/01/16 06:26 Glucose (Fingerstick) 155 mg/dL (70-99) 177 mg/dL (70-99) 177 mg/dL (70-99) White Blood Count 8.6 x10^3/uL (4.0-11.0) Red Blood Count 3.09 x10^6/uL (3.50-5.40) Hemoglobin 9.8 g/dL (12.0-15.5) Hematocrit 28.9 % (36.0-47.0) Mean Corpuscular Volume 94 fL (79-100) Mean Corpuscular Hemoglobin 32 pg (25-35) Mean Corpuscular Hemoglobin Concent 34 g/dL (31-37) Red Cell Distribution Width 14.8 % (11.5-14.5) Platelet Count 206 x10^3/uL (140-400) Neutrophils (%) (Auto) 76 % (31-73) Lymphocytes (%) (Auto) 12 % (24-48) Monocytes (%) (Auto) 11 % (0-9) Eosinophils (%) (Auto) 0 % (0-3) Basophils (%) (Auto) 1 % (0-3) Neutrophils # (Auto) 6.5 x10^3uL (1.8-7.7) Lymphocytes # (Auto) 1.0 x10^3/uL (1.0-4.8) Monocytes # (Auto) 0.9 x10^3/uL (0.0-1.1) Eosinophils # (Auto) 0.0 x10^3/uL (0.0-0.7) Basophils # (Auto) 0.1 x10^3/uL (0.0-0.2) Sodium Level 130 mmol/L (136-145) Potassium Level 4.1 mmol/L (3.5-5.1) Chloride Level 95 mmol/L (98-107) Carbon Dioxide Level 29 mmol/L (21-32) Anion Gap 6 (6-14) Blood Urea Nitrogen 14 mg/dL (7-20) Creatinine 0.7 mg/dL (0.6-1.0) Estimated GFR (Cockcroft-Gault) 98.7 Glucose Level 184 mg/dL (70-99) Calcium Level 8.4 mg/dL (8.5-10.1) Test 10/01/16 11:56 Glucose (Fingerstick) 217 mg/dL (70-99) Medications Current Medications Ondansetron HCl (Zofran) 4 mg PRN Q8HRS PRN IV NAUSEA/VOMITING Last administered on 09/19/16 02:59; Start 09/18/16 at 22:45; Stop 09/19/16 at 22:44 ; Status DC Fentanyl Citrate (Fentanyl 2ml Vial) 50 mcg PRN Q2HR PRN IV PAIN Last administered on 09/19/16 08:14; Start 09/18/16 at 22:45; Stop 09/19/16 at 22:44 ; Status DC Sodium Chloride 1,000 ml @ 125 mls/hr Q8H IV Last administered on 09/19/16 11 :01; Start 09/18/16 at 22:45; Stop 09/19/16 at 22:44; Status DC Hydralazine HCl (Apresoline) 10 mg PRN Q4HRS PRN IVP ELEVATED BP, SEE COMMENTS Last administered on 09/19/16 01:55; Start 09/19/16 at 01:45; Stop 09/19/16 at 12:24; Status DC Potassium Chloride 30 meq/ Sodium Chloride 1,015 ml @ 125 mls/hr 1X ONCE IV Last administered on 09/19/16 03:07; Start 09/19/16 at 01:45; Stop 09/19/16 at 09:52; Status DC Al Hydroxide/Mg Hydroxide (Mylanta Plus Xs) 15 ml 1X ONCE PO Last administered on 09/19/16 05:50; Start 09/19/16 at 06:00; Stop 09/19/16 at 06:01 ; Status DC Famotidine (Pepcid) 20 mg BID IVP Last administered on 09/24/16 09:01; Start 09/19/16 at 09:00; Stop 09/24/16 at 13:12; Status DC Acetaminophen (Tylenol) 650 mg PRN Q6HRS PRN PO FEVER Last administered on 09/25 08:43; Start 09/19/16 at 09:30; Stop 09/26/16 at 14:20; Status DC Ondansetron HCl (Zofran) 4 mg PRN Q6HRS PRN IV NAUSEA/VOMITING Last administered on 09/25/16 05:35; Start 09/19/16 at 09:30; Stop 09/27/16 at 12:26 ; Status DC Morphine Sulfate 2 mg PRN Q2HR PRN IV PAIN; Start 09/19/16 at 09:30; Stop 09/19 at 09:56; Status DC Tramadol HCl (Ultram) 50 mg PRN Q6HRS PRN PO PAIN Last administered on 09:49; Start 09/19/16 at 09:30; Stop 09/26/16 at 14:20; Status DC Hydralazine HCl (Apresoline) 10 mg PRN Q4HRS PRN IVP ELEVATED BP, SEE COMMENTS Last administered on 09/25/16 17:24; Start 09/19/16 at 09:30 Docusate Sodium (Colace) 100 mg PRN DAILY PRN PO CONSTIPATION Last administered on 09/25/16 08:43; Start 09/19/16 at 09:30; Stop 09/26/16 at 14:20 ; Status DC Barium Sulfate (Liquid E-Z Paque) 355 ml 1X ONCE PO ; Start 09/19/16 at 10:00; Stop 09/19/16 at 10:01; Status DC Barium Sulfate (Liquid E-Z Paque) 355 ml 1X ONCE PO ; Start 09/19/16 at 10:00; Stop 09/19/16 at 10:01; Status DC Morphine Sulfate 2 mg PRN Q2HR PRN IV PAIN Last administered on 09/24/16 09:09 ; Start 09/19/16 at 10:00; Stop 09/24/16 at 13:12; Status DC Throat Lozenges (Chloraseptic) 1 spray PRN Q2HR PRN PO SORE THROAT Last administered on 09/19/16 11:01; Start 09/19/16 at 10:15 Potassium Chloride/Sodium Chloride 1,000 ml @ 100 mls/hr Q10H IV Last administered on 09/20/16 01:57; Start 09/19/16 at 12:30; Stop 09/20/16 at 08:19 ; Status DC Heparin Sodium (Porcine) (Heparin Sq) 5,000 unit Q8HRS SQ Last administered on 10/01/16 05:59; Start 09/19/16 at 14:00 Amino Acids/ Glycerin/ Electrolytes 1,000 ml @ 75 mls/hr [id number] IV Last administered on 10/01/16 11:10; Start 09/20/16 at 08:30; Stop 10/01/16 at 21:59 Dextrose (Dextrose 50%-Water Syringe) 25 gm PRN Q15MIN PRN IV SEE COMMENTS Last administered on 09/20/16 11:52; Start 09/20/16 at 11:45; Stop 09/29/16 at 13:46; Status DC Iohexol (Omnipaque 350 Mg/ml) 400 ml 1X ONCE PO Last administered on 12:37; Start 09/20/16 at 12:15; Stop 09/20/16 at 12:16; Status DC Levofloxacin/ Dextrose 100 ml @ 100 mls/hr 1X PREOP PRN IV PRIOR TO PROCEDURE ; Start 09/21/16 at 17:30; Stop 09/22/16 at 18:00; Status DC Ondansetron HCl (Zofran) 4 mg PRN Q6HRS PRN IV NAUSEA/VOMITING; Start 09/22/16 at 07:45; Stop 09/23/16 at 07:44; Status DC Fentanyl Citrate (Fentanyl 2ml Vial) 25 mcg PRN Q5MIN PRN IV MILD PAIN; Start 09/22/16 at 07:45; Stop 09/23/16 at 07:44; Status DC Fentanyl Citrate (Fentanyl 2ml Vial) 50 mcg PRN Q5MIN PRN IV MODERATE PAIN; Start 09/22/16 at 07:45; Stop 09/23/16 at 07:44; Status DC Morphine Sulfate 1 mg PRN Q10MIN PRN IV SEVERE PAIN; Start 09/22/16 at 07:45; Stop 09/23/16 at 07:44; Status DC Ringer's Solution 1,000 ml @ 30 mls/hr Q24H IV ; Start 09/22/16 at 07:45; Stop 09/22/16 at 19:44; Status DC Lidocaine HCl 2 ml PRN 1X PRN ID PRIOR TO IV START; Start 09/22/16 at 07:45; Stop 09/23/16 at 07:44; Status DC Hydromorphone HCl (Dilaudid) 0.5 mg PRN Q10MIN PRN IV SEV PAIN, Second choice; Start 09/22/16 at 07:45; Stop 09/23/16 at 07:44; Status DC Prochlorperazine Edisylate (Compazine) 5 mg PACU PRN PRN IV NAUSEA, MRX1; Start 09/22/16 at 07:45; Stop 09/23/16 at 07:44; Status DC Lorazepam (Ativan) 0.5 mg 1X ONCE IV Last administered on 09/22/16 12:08; Start 09/22/16 at 12:00; Stop 09/22/16 at 12:03; Status DC Pantoprazole Sodium (Protonix) 40 mg DAILYAC PO Last administered on 09/25/16 08:43; Start 09/24/16 at 13:15; Stop 09/26/16 at 14:20; Status DC Levofloxacin/ Dextrose 100 ml @ 100 mls/hr 1X PREOP ONCE IV Last administered on 09/25/16 13:32; Start 09/25/16 at 13:30; Stop 09/25/16 at 14:29 ; Status DC Sevoflurane (Ultane) 60 ml STK-MED ONCE IH ; Start 09/25/16 at 13:40; Stop 09/25 at 13:53; Status DC Fentanyl Citrate (Fentanyl 2ml Vial) 100 mcg STK-MED ONCE .ROUTE ; Start at 13:41; Stop 09/25/16 at 13:53; Status DC Glycopyrrolate (Robinul) 1 mg STK-MED ONCE .ROUTE ; Start 09/25/16 at 13:41; Stop 09/25/16 at 13:53; Status DC Propofol 20 ml @ As Directed STK-MED ONCE IV ; Start 09/25/16 at 13:41; Stop at 13:53; Status DC Ondansetron HCl (Zofran) 4 mg STK-MED ONCE .ROUTE ; Start 09/25/16 at 13:42; Stop 09/25/16 at 13:53; Status DC Dexamethasone Sodium Phosphate (Decadron) 20 mg STK-MED ONCE .ROUTE ; Start at 13:42; Stop 09/25/16 at 13:53; Status DC Lidocaine HCl (Lidocaine Pf 2% Vial) 5 ml STK-MED ONCE .ROUTE ; Start 09/25/16 at 13:42; Stop 09/25/16 at 13:53; Status DC Ondansetron HCl (Zofran) 4 mg PRN Q6HRS PRN IV NAUSEA/VOMITING; Start 09/25/16 at 14:00; Stop 09/26/16 at 13:59; Status DC Fentanyl Citrate (Fentanyl 2ml Vial) 25 mcg PRN Q5MIN PRN IV MILD PAIN; Start 09/25/16 at 14:00; Stop 09/26/16 at 13:59; Status DC Fentanyl Citrate (Fentanyl 2ml Vial) 50 mcg PRN Q5MIN PRN IV MODERATE PAIN Last administered on 09/25/16t 17:31; Start 09/25/16 at 14:00; Stop 09/26/16 at 13:59; Status DC Morphine Sulfate 1 mg PRN Q10MIN PRN IV SEVERE PAIN; Start 09/25/16 at 14:00; Stop 09/26/16 at 13:59; Status DC Ringer's Solution 1,000 ml @ 0 mls/hr Q0M IV ; Start 09/25/16 at 13:53; Stop at 01:52; Status DC Lidocaine HCl 2 ml PRN 1X PRN ID PRIOR TO IV START; Start 09/25/16 at 14:00; Stop 09/26/16 at 13:59; Status DC Hydromorphone HCl (Dilaudid) 0.5 mg PRN Q10MIN PRN IV SEV PAIN, Second choice; Start 09/25/16 at 14:00; Stop 09/26/16 at 13:59; Status DC Prochlorperazine Edisylate (Compazine) 5 mg PACU PRN PRN IV NAUSEA, MRX1; Start 09/25/16 at 14:00; Stop 09/26/16 at 13:59; Status DC Fentanyl Citrate (Fentanyl 2ml Vial) 100 mcg STK-MED ONCE .ROUTE ; Start at 14:08; Stop 09/25/16 at 14:09; Status DC Ringer's Solution 1,000 ml @ 125 mls/hr Q8H IV ; Start 09/25/16 at 14:09; Stop 09/26/16 at 02:08; Status DC Fentanyl Citrate (Fentanyl 2ml Vial) 50 mcg PRN Q5MIN PRN IV pain Last administered on 09/25/16t 14:15; Start 09/25/16 at 14:15; Stop 09/26/16 at 14:20 ; Status DC Succinylcholine Chloride (Anectine) 200 mg STK-MED ONCE .ROUTE ; Start 09/25/16 at 14:20; Stop 09/25/16 at 14:21; Status DC Fentanyl Citrate (Fentanyl 2ml Vial) 100 mcg STK-MED ONCE .ROUTE ; Start at 14:54; Stop 09/25/16 at 14:55; Status DC Enoxaparin Sodium (Lovenox 40mg Syringe) 40 mg Q24H SQ ; Start 09/25/16 at 18:00 ; Stop 09/26/16 at 11:03; Status DC Sodium Chloride (Normal Saline Flush) 3 ml QSHIFT PRN IV AFTER MEDS AND BLOOD DRAWS; Start 09/25/16 at 16:30 Ringer's Solution 1,000 ml @ 100 mls/hr Q10H IV ; Start 09/25/16 at 16:25; Stop 09/25/16 at 23:51; Status DC Naloxone HCl (Narcan) 0.4 mg PRN Q2MIN PRN IV SEE INSTRUCTIONS; Start 09/25/16 at 16:30 Sodium Chloride 1,000 ml @ 25 mls/hr Q24H IV Last administered on 10/01/16t 13 :15; Start 09/25/16 at 16:25 Hydromorphone HCl 30 ml @ 0 mls/hr CONT PRN PRN IV PROTOCOL Last administered on 09/30/16 05:32; Start 09/25/16 at 16:30 Ondansetron HCl (Zofran) 4 mg PRN Q6HRS PRN IV KATHRYN, CHOICE Last administered on 09/28/16 07:20; Start 09/25/16 at 16:30 Fentanyl Citrate (Fentanyl 2ml Vial) 100 mcg STK-MED ONCE .ROUTE ; Start at 17:14; Stop 09/25/16 at 17:15; Status DC Acetaminophen (Tylenol) 325 mg PRN Q6HRS PRN AL fever >100.4 Last administered on 09/28/16 19:28; Start 09/26/16 at 14:30 Bisacodyl (Dulcolax Supp) 10 mg PRN DAILY PRN AL CONSTIPATION Last administered on 09/30/16 20:16; Start 09/26/16 at 14:30 Famotidine (Pepcid) 20 mg BID IVP Last administered on 10/01/16 10:17; Start 09/26/16 at 21:00 Insulin Aspart (NovoLOG) 0-5 UNITS TIDWMEALS SQ Last administered on 09/29/16 12:19; Start 09/26/16 at 17:00 Dextrose (Dextrose 50%-Water Syringe) 12.5 gm PRN Q15MIN PRN IV SEE COMMENTS; Start 09/26/16 at 15:00 Saliva Substitute (Biotene Moisturizing Mouth) 2 spray PRN Q15MIN PRN PO DRY MOUTH Last administered on 09/28/16 22:06; Start 09/28/16 at 14:00 Sodium Chloride 1,000 ml @ 75 mls/hr 1X ONCE IV Last administered on 14:45; Start 09/29/16 at 14:45; Stop 09/30/16 at 04:04; Status DC Artificial Tears (Artificial Tears) 1 drop PRN Q15MIN PRN OU DRY EYE; Start at 10:30 Info 1 each PRN DAILY PRN MC SEE COMMENTS; Start 10/01/16 at 12:45 Sodium Chloride 90 meq/Potassium Chloride 50 meq/ Potassium Phosphate 13.6 mmol/ Magnesium Sulfate 10 meq/ Calcium Gluconate 10 meq/ Multivitamins 10 ml/Chromium / Copper/Manganese/ Seleni/Zn 1 ml/ Total Parenteral Nutrition/Amino Acids/ Dextrose/ Fat Emulsion Intravenous 1,200 ml @ 50 mls/hr TPN CONT IV ; Start at 22:00; Stop 10/02/16 at 21:59 Active Scripts Active Senna S Tablet (Sennosides/Docusate Sodium) 1 Each Tablet 1 Each PO DAILY Reported Lexapro (Escitalopram Oxalate) 20 Mg Tablet 1 Tab PO DAILY Lisinopril-Hctz 20-12.5 Mg Tab (Lisinopril/Hydrochlorothiazide) 1 Each Tablet 1 Tab PO DAILY Lipitor (Atorvastatin Calcium) 20 Mg Tablet 20 Mg PO HS Ambien (Zolpidem Tartrate) 5 Mg Tablet 1 Tab PO QHS Lyrica (Pregabalin) 150 Mg Capsule 150 Mg PO BID 30 Days Buspirone Hcl 10 Mg Tablet 10 Mg PO BID Aspir 81 (Aspirin) 81 Mg Tablet.dr 1 Tab PO DAILY Vitals/I & O Vital Sign - Last 24 Hours 09/30/16 09/30/16 09/30/16 09/30/16 15:00 19:00 20:00 23:00 Temp 98.2 100.3 99.6 98.2 100.3 99.6 Pulse 94 91 84 Resp 18 18 B/P (MAP) 149/57 (87) 146/66 (92) 109/62 (78) Pulse Ox 99 96 98 O2 Delivery Nasal Cannula Nasal Cannula Nasal Cannula Nasal Cannula O2 Flow Rate 2.0 4.0 4.0 4.0 10/01/16 10/01/16 10/01/16 03:00 07:00 11:09 Temp 100.0 97.8 97.9 100.0 97.8 97.9 Pulse 85 82 83 Resp 18 B/P (MAP) 152/68 (96) 116/59 (78) 139/70 (93) Pulse Ox 100 98 100 O2 Delivery Nasal Cannula Nasal Cannula Nasal Cannula O2 Flow Rate 4.0 4.0 4.0 Intake and Output 09/30/16 09/30/16 10/01/16 15:00 23:00 07:00 Intake Total 60 ml Output Total 600 ml 670 ml Balance -540 ml -670 ml JAIRON OSMAN MD Oct 01, 2016 13:25
[2016-10-01 15:00] VITALS: BP 132/69
[2016-10-01] MEDS: TPN PER PHARMACY MC PRN (16:31)
--- NOTE | 2016-10-01 17:11 | PDOC2 ---
PALLIATIVE CARE Palliative Care Note Palliative Care Patient alert. 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 States pain improving. Spoke with Natalia Lyons this am. Stated she is DPOA and will fax those documents. Natalia was not aware of patient's hospitalization until yesterday. Patient states she lives with friend and had assistance at home. Has PT also coming in at home. Plan is to follow-up with oncologist after discharge. Likely will need SNU at discharge or home if enough support. DARLENE THORNTON Oct 01, 2016 17:11
[2016-10-01] MEDS ORDERED: SODIUM PHOSPHATE 15 MMOL in IV DEXTROSE 5% 250 ML IV ONE (17:30)
[2016-10-01 19:00] VITALS: BP 130/47
[2016-10-01] MEDS ORDERED: [UNRECOGNIZED DRUG - OTHER] IV SCH ×10 (22:00)
[2016-10-01] MEDS ORDERED: DEXTROSE 70% IV SCH ×10 (22:00)
[2016-10-01] MEDS ORDERED: TOTAL PARENTERAL NUTRITION IV SCH ×10 (22:00)
[2016-10-01] MEDS ORDERED: AMINO ACIDS IV SCH ×10 (22:00)
[2016-10-01 23:30] VITALS: BP 152/71
[2016-10-02 03:30] VITALS: BP 158/68
[2016-10-02] MEDS: HEPARIN PF for SUB-Q USE 5,000 UNIT/0.5 ML VIAL. SQ SCH ×3 (06:13→22:15)
[2016-10-02 06:58] LABS: CALCIUM 8.4 mg/dL (8.5-10.1); CREATININE 0.7 mg/dL (0.6-1.0); GFR 98.7; POTASSIUM 3.9 mmol/L (3.5-5.1)
[2016-10-02 07:07] VITALS: BP 131/53
[2016-10-02] MEDS: INSULIN ASPART 300 UNITS/3 ML INSULN.PEN SQ SCH ×3 (08:00→18:36)
--- NOTE | 2016-10-02 09:03 | PDOC ---
PROGRESS NOTES Subjective Subjective c/c - f/u of METASTATIC POORLY DIFFERENTIATED ADENOCARCINOMA. ROS - abd pain better Objective Objective Vital Signs Date Time Temp Pulse Resp B/P (MAP) Pulse Ox O2 Delivery O2 Flow Rate FiO2 10/02/16 07:43 Nasal Cannula 4.0 10/02/16 07:07 98.1 76 18 131/53 (79) 100 98.1 Intake and Output 10/02/16 07:00 Intake Total 809 ml Output Total 950 ml Balance -141 ml Intake Oral 120 ml IV Total 689 ml Output Urine Total 650 ml Drainage Total 300 ml # Voids 2 Physical Exam Heart: Normal S1, Normal S2 General: Alert, Oriented X3 Lungs: Clear to auscultation Neuro: Normal speech Psych/Mental Status: Mental status NL Assessment Assessment Problems Medical Problems: (1) Abdominal pain Status: Acute (2) Nausea and vomiting Status: Acute IMPRESSION AND PLAN: 1. Recurrent metastatic endometrial carcinoma, stage 4. She was initially diagnosed with endometrial carcinoma in 2014, status post surgery, chemotherapy and radiation therapy. She received carboplatin and Taxol at [facility] by Dr. Santiago Funk. She now has evidence of progressive disease. I would recommend follow up with Dr. Santiago Funk regarding further palliative chemotherapy. All her questions were answered. Appreciate palliative care consult. PATHOLOGY REPORT * * * * * * * * FINAL DIAGNOSIS: Fibromembranous tissue, abdominal wall mass biopsy: - METASTATIC POORLY DIFFERENTIATED ADENOCARCINOMA. 2. Small-bowel obstruction, status post exploratory laparotomy and lysis of adhesions on 09/25/2016. Continue postoperative care for Dr. Johnathan Carrillo. 3. Abd pain - post-op, continue pain management. Improving. 4. Anemia, monitor hb.Stable 9.8 Comment Review of Relevant I have reviewed the following items anita (where applicable) has been applied. Labs Laboratory Tests Test 09/30/16 10:54 09/30/16 16:50 09/30/16 23:05 10/01/16 03:05 Glucose (Fingerstick) 176 mg/dL (70-99) 155 mg/dL (70-99) 177 mg/dL (70-99) White Blood Count 8.6 x10^3/uL (4.0-11.0) Red Blood Count 3.09 x10^6/uL (3.50-5.40) Hemoglobin 9.8 g/dL (12.0-15.5) Hematocrit 28.9 % (36.0-47.0) Mean Corpuscular Volume 94 fL (79-100) Mean Corpuscular Hemoglobin 32 pg (25-35) Mean Corpuscular Hemoglobin Concent 34 g/dL (31-37) Red Cell Distribution Width 14.8 % (11.5-14.5) Platelet Count 206 x10^3/uL (140-400) Neutrophils (%) (Auto) 76 % (31-73) Lymphocytes (%) (Auto) 12 % (24-48) Monocytes (%) (Auto) 11 % (0-9) Eosinophils (%) (Auto) 0 % (0-3) Basophils (%) (Auto) 1 % (0-3) Neutrophils # (Auto) 6.5 x10^3uL (1.8-7.7) Lymphocytes # (Auto) 1.0 x10^3/uL (1.0-4.8) Monocytes # (Auto) 0.9 x10^3/uL (0.0-1.1) Eosinophils # (Auto) 0.0 x10^3/uL (0.0-0.7) Basophils # (Auto) 0.1 x10^3/uL (0.0-0.2) Sodium Level 130 mmol/L (136-145) Potassium Level 4.1 mmol/L (3.5-5.1) Chloride Level 95 mmol/L (98-107) Carbon Dioxide Level 29 mmol/L (21-32) Anion Gap 6 (6-14) Blood Urea Nitrogen 14 mg/dL (7-20) Creatinine 0.7 mg/dL (0.6-1.0) Estimated GFR (Cockcroft-Gault) 98.7 Glucose Level 184 mg/dL (70-99) Calcium Level 8.4 mg/dL (8.5-10.1) Test 10/01/16 06:26 10/01/16 11:56 10/02/16 06:00 10/02/16 06:01 Glucose (Fingerstick) 177 mg/dL (70-99) 217 mg/dL (70-99) 235 mg/dL (70-99) Sodium Level 129 mmol/L (136-145) Potassium Level 3.9 mmol/L (3.5-5.1) Chloride Level 95 mmol/L (98-107) Carbon Dioxide Level 28 mmol/L (21-32) Anion Gap 6 (6-14) Blood Urea Nitrogen 12 mg/dL (7-20) Creatinine 0.7 mg/dL (0.6-1.0) Estimated GFR (Cockcroft-Gault) 98.7 Glucose Level 259 mg/dL (70-99) Calcium Level 8.4 mg/dL (8.5-10.1) Phosphorus Level 3.0 mg/dL (2.6-4.7) Magnesium Level 2.0 mg/dL (1.8-2.4) Triglycerides Level 351 mg/dL (0-150) Test 10/02/16 07:09 Glucose (Fingerstick) 218 mg/dL (70-99) Laboratory Tests Test 10/01/16 11:56 10/02/16 06:00 10/02/16 06:01 10/02/16 07:09 Glucose (Fingerstick) 217 mg/dL (70-99) 235 mg/dL (70-99) 218 mg/dL (70-99) Sodium Level 129 mmol/L (136-145) Potassium Level 3.9 mmol/L (3.5-5.1) Chloride Level 95 mmol/L (98-107) Carbon Dioxide Level 28 mmol/L (21-32) Anion Gap 6 (6-14) Blood Urea Nitrogen 12 mg/dL (7-20) Creatinine 0.7 mg/dL (0.6-1.0) Estimated GFR (Cockcroft-Gault) 98.7 Glucose Level 259 mg/dL (70-99) Calcium Level 8.4 mg/dL (8.5-10.1) Phosphorus Level 3.0 mg/dL (2.6-4.7) Magnesium Level 2.0 mg/dL (1.8-2.4) Triglycerides Level 351 mg/dL (0-150) Medications Current Medications Ondansetron HCl (Zofran) 4 mg PRN Q8HRS PRN IV NAUSEA/VOMITING Last administered on 09/19/16 02:59; Start 09/18/16 at 22:45; Stop 09/19/16 at 22:44 ; Status DC Fentanyl Citrate (Fentanyl 2ml Vial) 50 mcg PRN Q2HR PRN IV PAIN Last administered on 09/19/16 08:14; Start 09/18/16 at 22:45; Stop 09/19/16 at 22:44 ; Status DC Sodium Chloride 1,000 ml @ 125 mls/hr Q8H IV Last administered on 09/19/16 11 :01; Start 09/18/16 at 22:45; Stop 09/19/16 at 22:44; Status DC Hydralazine HCl (Apresoline) 10 mg PRN Q4HRS PRN IVP ELEVATED BP, SEE COMMENTS Last administered on 09/19/16 01:55; Start 09/19/16 at 01:45; Stop 09/19/16 at 12:24; Status DC Potassium Chloride 30 meq/ Sodium Chloride 1,015 ml @ 125 mls/hr 1X ONCE IV Last administered on 09/19/16 03:07; Start 09/19/16 at 01:45; Stop 09/19/16 at 09:52; Status DC Al Hydroxide/Mg Hydroxide (Mylanta Plus Xs) 15 ml 1X ONCE PO Last administered on 09/19/16 05:50; Start 09/19/16 at 06:00; Stop 09/19/16 at 06:01 ; Status DC Famotidine (Pepcid) 20 mg BID IVP Last administered on 09/24/16 09:01; Start 09/19/16 at 09:00; Stop 09/24/16 at 13:12; Status DC Acetaminophen (Tylenol) 650 mg PRN Q6HRS PRN PO FEVER Last administered on 09/25 08:43; Start 09/19/16 at 09:30; Stop 09/26/16 at 14:20; Status DC Ondansetron HCl (Zofran) 4 mg PRN Q6HRS PRN IV NAUSEA/VOMITING Last administered on 09/25/16 05:35; Start 09/19/16 at 09:30; Stop 09/27/16 at 12:26 ; Status DC Morphine Sulfate 2 mg PRN Q2HR PRN IV PAIN; Start 09/19/16 at 09:30; Stop 09/19 at 09:56; Status DC Tramadol HCl (Ultram) 50 mg PRN Q6HRS PRN PO PAIN Last administered on 09:49; Start 09/19/16 at 09:30; Stop 09/26/16 at 14:20; Status DC Hydralazine HCl (Apresoline) 10 mg PRN Q4HRS PRN IVP ELEVATED BP, SEE COMMENTS Last administered on 09/25/16 17:24; Start 09/19/16 at 09:30 Docusate Sodium (Colace) 100 mg PRN DAILY PRN PO CONSTIPATION Last administered on 09/25/16 08:43; Start 09/19/16 at 09:30; Stop 09/26/16 at 14:20 ; Status DC Barium Sulfate (Liquid E-Z Paque) 355 ml 1X ONCE PO ; Start 09/19/16 at 10:00; Stop 09/19/16 at 10:01; Status DC Barium Sulfate (Liquid E-Z Paque) 355 ml 1X ONCE PO ; Start 09/19/16 at 10:00; Stop 09/19/16 at 10:01; Status DC Morphine Sulfate 2 mg PRN Q2HR PRN IV PAIN Last administered on 09/24/16 09:09 ; Start 09/19/16 at 10:00; Stop 09/24/16 at 13:12; Status DC Throat Lozenges (Chloraseptic) 1 spray PRN Q2HR PRN PO SORE THROAT Last administered on 09/19/16 11:01; Start 09/19/16 at 10:15 Potassium Chloride/Sodium Chloride 1,000 ml @ 100 mls/hr Q10H IV Last administered on 09/20/16 01:57; Start 09/19/16 at 12:30; Stop 09/20/16 at 08:19 ; Status DC Heparin Sodium (Porcine) (Heparin Sq) 5,000 unit Q8HRS SQ Last administered on 10/02/16 06:13; Start 09/19/16 at 14:00 Amino Acids/ Glycerin/ Electrolytes 1,000 ml @ 75 mls/hr [id number] IV Last administered on 10/01/16 11:10; Start 09/20/16 at 08:30; Stop 10/01/16 at 21:59 ; Status DC Dextrose (Dextrose 50%-Water Syringe) 25 gm PRN Q15MIN PRN IV SEE COMMENTS Last administered on 09/20/16 11:52; Start 09/20/16 at 11:45; Stop 09/29/16 at 13:46; Status DC Iohexol (Omnipaque 350 Mg/ml) 400 ml 1X ONCE PO Last administered on t 12:37; Start 09/20/16 at 12:15; Stop 09/20/16 at 12:16; Status DC Levofloxacin/ Dextrose 100 ml @ 100 mls/hr 1X PREOP PRN IV PRIOR TO PROCEDURE ; Start 09/21/16 at 17:30; Stop 09/22/16 at 18:00; Status DC Ondansetron HCl (Zofran) 4 mg PRN Q6HRS PRN IV NAUSEA/VOMITING; Start 09/22/16 at 07:45; Stop 09/23/16 at 07:44; Status DC Fentanyl Citrate (Fentanyl 2ml Vial) 25 mcg PRN Q5MIN PRN IV MILD PAIN; Start 09/22/16 at 07:45; Stop 09/23/16 at 07:44; Status DC Fentanyl Citrate (Fentanyl 2ml Vial) 50 mcg PRN Q5MIN PRN IV MODERATE PAIN; Start 09/22/16 at 07:45; Stop 09/23/16 at 07:44; Status DC Morphine Sulfate 1 mg PRN Q10MIN PRN IV SEVERE PAIN; Start 09/22/16 at 07:45; Stop 09/23/16 at 07:44; Status DC Ringer's Solution 1,000 ml @ 30 mls/hr Q24H IV ; Start 09/22/16 at 07:45; Stop 09/22/16 at 19:44; Status DC Lidocaine HCl 2 ml PRN 1X PRN ID PRIOR TO IV START; Start 09/22/16 at 07:45; Stop 09/23/16 at 07:44; Status DC Hydromorphone HCl (Dilaudid) 0.5 mg PRN Q10MIN PRN IV SEV PAIN, Second choice; Start 09/22/16 at 07:45; Stop 09/23/16 at 07:44; Status DC Prochlorperazine Edisylate (Compazine) 5 mg PACU PRN PRN IV NAUSEA, MRX1; Start 09/22/16 at 07:45; Stop 09/23/16 at 07:44; Status DC Lorazepam (Ativan) 0.5 mg 1X ONCE IV Last administered on 09/22/16t 12:08; Start 09/22/16 at 12:00; Stop 09/22/16 at 12:03; Status DC Pantoprazole Sodium (Protonix) 40 mg DAILYAC PO Last administered on 09/25/16t 08:43; Start 09/24/16 at 13:15; Stop 09/26/16 at 14:20; Status DC Levofloxacin/ Dextrose 100 ml @ 100 mls/hr 1X PREOP ONCE IV Last administered on 09/25/16t 13:32; Start 09/25/16 at 13:30; Stop 09/25/16 at 14:29 ; Status DC Sevoflurane (Ultane) 60 ml STK-MED ONCE IH ; Start 09/25/16 at 13:40; Stop 09/25 at 13:53; Status DC Fentanyl Citrate (Fentanyl 2ml Vial) 100 mcg STK-MED ONCE .ROUTE ; Start at 13:41; Stop 09/25/16 at 13:53; Status DC Glycopyrrolate (Robinul) 1 mg STK-MED ONCE .ROUTE ; Start 09/25/16 at 13:41; Stop 09/25/16 at 13:53; Status DC Propofol 20 ml @ As Directed STK-MED ONCE IV ; Start 09/25/16 at 13:41; Stop at 13:53; Status DC Ondansetron HCl (Zofran) 4 mg STK-MED ONCE .ROUTE ; Start 09/25/16 at 13:42; Stop 09/25/16 at 13:53; Status DC Dexamethasone Sodium Phosphate (Decadron) 20 mg STK-MED ONCE .ROUTE ; Start at 13:42; Stop 09/25/16 at 13:53; Status DC Lidocaine HCl (Lidocaine Pf 2% Vial) 5 ml STK-MED ONCE .ROUTE ; Start 09/25/16 at 13:42; Stop 09/25/16 at 13:53; Status DC Ondansetron HCl (Zofran) 4 mg PRN Q6HRS PRN IV NAUSEA/VOMITING; Start 09/25/16 at 14:00; Stop 09/26/16 at 13:59; Status DC Fentanyl Citrate (Fentanyl 2ml Vial) 25 mcg PRN Q5MIN PRN IV MILD PAIN; Start 09/25/16 at 14:00; Stop 09/26/16 at 13:59; Status DC Fentanyl Citrate (Fentanyl 2ml Vial) 50 mcg PRN Q5MIN PRN IV MODERATE PAIN Last administered on 09/25/16t 17:31; Start 09/25/16 at 14:00; Stop 09/26/16 at 13:59; Status DC Morphine Sulfate 1 mg PRN Q10MIN PRN IV SEVERE PAIN; Start 09/25/16 at 14:00; Stop 09/26/16 at 13:59; Status DC Ringer's Solution 1,000 ml @ 0 mls/hr Q0M IV ; Start 09/25/16 at 13:53; Stop at 01:52; Status DC Lidocaine HCl 2 ml PRN 1X PRN ID PRIOR TO IV START; Start 09/25/16 at 14:00; Stop 09/26/16 at 13:59; Status DC Hydromorphone HCl (Dilaudid) 0.5 mg PRN Q10MIN PRN IV SEV PAIN, Second choice; Start 09/25/16 at 14:00; Stop 09/26/16 at 13:59; Status DC Prochlorperazine Edisylate (Compazine) 5 mg PACU PRN PRN IV NAUSEA, MRX1; Start 09/25/16 at 14:00; Stop 09/26/16 at 13:59; Status DC Fentanyl Citrate (Fentanyl 2ml Vial) 100 mcg STK-MED ONCE .ROUTE ; Start at 14:08; Stop 09/25/16 at 14:09; Status DC Ringer's Solution 1,000 ml @ 125 mls/hr Q8H IV ; Start 09/25/16 at 14:09; Stop 09/26/16 at 02:08; Status DC Fentanyl Citrate (Fentanyl 2ml Vial) 50 mcg PRN Q5MIN PRN IV pain Last administered on 09/25/16t 14:15; Start 09/25/16 at 14:15; Stop 09/26/16 at 14:20 ; Status DC Succinylcholine Chloride (Anectine) 200 mg STK-MED ONCE .ROUTE ; Start 09/25/16 at 14:20; Stop 09/25/16 at 14:21; Status DC Fentanyl Citrate (Fentanyl 2ml Vial) 100 mcg STK-MED ONCE .ROUTE ; Start at 14:54; Stop 09/25/16 at 14:55; Status DC Enoxaparin Sodium (Lovenox 40mg Syringe) 40 mg Q24H SQ ; Start 09/25/16 at 18:00 ; Stop 09/26/16 at 11:03; Status DC Sodium Chloride (Normal Saline Flush) 3 ml QSHIFT PRN IV AFTER MEDS AND BLOOD DRAWS; Start 09/25/16 at 16:30 Ringer's Solution 1,000 ml @ 100 mls/hr Q10H IV ; Start 09/25/16 at 16:25; Stop 09/25/16 at 23:51; Status DC Naloxone HCl (Narcan) 0.4 mg PRN Q2MIN PRN IV SEE INSTRUCTIONS; Start 09/25/16 at 16:30 Sodium Chloride 1,000 ml @ 25 mls/hr Q24H IV Last administered on 10/01/16 13 :15; Start 09/25/16 at 16:25 Hydromorphone HCl 30 ml @ 0 mls/hr CONT PRN PRN IV PROTOCOL Last administered on 09/30/16 05:32; Start 09/25/16 at 16:30 Ondansetron HCl (Zofran) 4 mg PRN Q6HRS PRN IV NAUESA, 1ST CHOICE Last administered on 09/28/16 07:20; Start 09/25/16 at 16:30 Fentanyl Citrate (Fentanyl 2ml Vial) 100 mcg STK-MED ONCE .ROUTE ; Start at 17:14; Stop 09/25/16 at 17:15; Status DC Acetaminophen (Tylenol) 325 mg PRN Q6HRS PRN AL fever >100.4 Last administered on 09/28/16 19:28; Start 09/26/16 at 14:30 Bisacodyl (Dulcolax Supp) 10 mg PRN DAILY PRN AL CONSTIPATION Last administered on 09/30/16 20:16; Start 09/26/16 at 14:30 Famotidine (Pepcid) 20 mg BID IVP Last administered on 10/01/16 23:09; Start 09/26/16 at 21:00 Insulin Aspart (NovoLOG) 0-5 UNITS TIDWMEALS SQ Last administered on 09/29/16 12:19; Start 09/26/16 at 17:00 Dextrose (Dextrose 50%-Water Syringe) 12.5 gm PRN Q15MIN PRN IV SEE COMMENTS; Start 09/26/16 at 15:00 Saliva Substitute (Biotene Moisturizing Mouth) 2 spray PRN Q15MIN PRN PO DRY MOUTH Last administered on 09/28/16 22:06; Start 09/28/16 at 14:00 Sodium Chloride 1,000 ml @ 75 mls/hr 1X ONCE IV Last administered on 14:45; Start 09/29/16 at 14:45; Stop 09/30/16 at 04:04; Status DC Artificial Tears (Artificial Tears) 1 drop PRN Q15MIN PRN OU DRY EYE Last administered on 10/01/16 23:08; Start 10/01/16 at 10:30 Info 1 each PRN DAILY PRN MC SEE COMMENTS Last administered on 10/01/16 16:31 ; Start 10/01/16 at 12:45 Sodium Chloride 90 meq/Potassium Chloride 50 meq/ Potassium Phosphate 13.6 mmol/ Magnesium Sulfate 10 meq/ Calcium Gluconate 10 meq/ Multivitamins 10 ml/Chromium / Copper/Manganese/ Seleni/Zn 1 ml/ Total Parenteral Nutrition/Amino Acids/ Dextrose/ Fat Emulsion Intravenous 1,200 ml @ 50 mls/hr TPN CONT IV Last administered on 10/01/16 23:12; Start 10/01/16 at 22:00; Stop 10/02/16 at 21:59 Sodium Phosphate 15 mmol/Dextrose 255 ml @ 63.75 mls/ hr 1X ONCE IV Last administered on 10/01/16 17:30; Start 10/01/16 at 17:30; Stop 10/01/16 at 21:29 ; Status DC Active Scripts Active Senna S Tablet (Sennosides/Docusate Sodium) 1 Each Tablet 1 Each PO DAILY Reported Lexapro (Escitalopram Oxalate) 20 Mg Tablet 1 Tab PO DAILY Lisinopril-Hctz 20-12.5 Mg Tab (Lisinopril/Hydrochlorothiazide) 1 Each Tablet 1 Tab PO DAILY Lipitor (Atorvastatin Calcium) 20 Mg Tablet 20 Mg PO HS Ambien (Zolpidem Tartrate) 5 Mg Tablet 1 Tab PO QHS Lyrica (Pregabalin) 150 Mg Capsule 150 Mg PO BID 30 Days Buspirone Hcl 10 Mg Tablet 10 Mg PO BID Aspir 81 (Aspirin) 81 Mg Tablet.dr 1 Tab PO DAILY Vitals/I & O Vital Sign - Last 24 Hours 10/01/16 10/01/16 10/01/16 10/01/16 11:09 15:00 19:00 20:00 Temp 97.9 97.9 99.1 97.9 97.9 99.1 Pulse 83 82 86 Resp 18 18 B/P (MAP) 139/70 (93) 132/69 (90) 130/47 (74) Pulse Ox 100 100 100 O2 Delivery Nasal Cannula Nasal Cannula Nasal Cannula Nasal Cannula O2 Flow Rate 4.0 4.0 4.0 4.0 10/01/16 10/02/16 10/02/16 10/02/16 23:30 03:30 07:07 07:43 Temp 97.9 98.6 98.1 97.9 98.6 98.1 Pulse 76 80 76 Resp 18 B/P (MAP) 152/71 (98) 158/68 (98) 131/53 (79) Pulse Ox 100 100 100 O2 Delivery Nasal Cannula Nasal Cannula Nasal Cannula Nasal Cannula O2 Flow Rate 4.0 4.0 4.0 4.0 Intake and Output 10/01/16 10/01/16 10/02/16 15:00 23:00 07:00 Intake Total 120 ml 689 ml Output Total 300 ml 650 ml Balance -300 ml -530 ml 689 ml JAIRON OSMAN MD Oct 02, 2016 09:03
[2016-10-02] MEDS: FAMOTIDINE 20 MG/2 ML VIAL IVP SCH ×2 (10:11→22:08)
[2016-10-02 11:04] VITALS: BP 145/62
--- NOTE | 2016-10-02 12:20 | PDOC2 ---
PALLIATIVE CARE Palliative Care Note Palliative Care Patient more alert. Visiting with family Informed that AD was received from Natalia. Pain 6 at worst and 1-2 at best. Currently comfortable. Plan is to continue current treatment, SNU for strengthening and follow-up with [facility] oncology. Ez ELLER is assisting with discharge plans. DARLENE THORNTON Oct 02, 2016 12:20
[2016-10-02] MEDS ORDERED: MORPHINE SULFATE 4 MG/ML DISP.SYRIN. IV PRN (12:30)
[2016-10-02] MEDS ORDERED: traMADol 50 MG TABLET PO PRN (12:30)
[2016-10-02] MEDS ORDERED: DEXTROSE 50% 25 GM / 50ML DISP.SYRIN. IV PRN (12:30)
--- NOTE | 2016-10-02 12:34 | PDOC ---
PROGRESS NOTES Chief Complaint Chief Complaint Abdominal pain, recurrent SBO ASSESSMENT AND PLAN: 1. 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 Pain control: Dilaudid DRAWER UPFITTER, 3. Nutrition: on PPN for now. 4. HTN/HLD: well controlled; hydralazine IV PRN 5. CAD: hx CABG. stable 6. DM2: sl worse since surgery. monitor with ISS 7. Hypokalemia/hyperkalemia 8. Hyponatremia plan: fu with sx, ADA diet dc PPN, TPN since 10/01 fu with gi dc DRAWER UPFITTER for pain control if ok with sx dvt, gi ppx change to high dose SSI talked to onco, pt will fu with her own onco in after DC for chemo talked to pt about plan, pt has limited understanding, will get PAT consult pt has very low appetite,add TPN, nutrition consult, encourage to eat SW for SNF CONSULT History of Present Illness History of Present Illness ROS: no chills, sob or chest pain has flatus, 1 time BM 09/30, 10/01 abd pain better, 5/10 , on DRAWER UPFITTER, but not using much low na still high K better T 100.1 low po intake, on TPN 10/01 Vitals Vitals Vital Signs Date Time Temp Pulse Resp B/P (MAP) Pulse Ox O2 Delivery O2 Flow Rate FiO2 10/02/16 11:04 98.2 80 18 145/62 (89) 100 Nasal Cannula 4.0 98.2 Physical Exam General: Alert, Oriented X3 Heart: Normal S1, Normal S2 Lungs: Clear, Other (no r/r/w) Abdomen: Soft, No tenderness, Other (decreased BS. clean abd wound, G tube in place) Extremities: No edema Skin: No rashes, No breakdown Labs LABS Laboratory Tests Test 10/02/16 06:00 10/02/16 06:01 10/02/16 07:09 10/02/16 11:11 Sodium Level 129 mmol/L (136-145) Potassium Level 3.9 mmol/L (3.5-5.1) Chloride Level 95 mmol/L (98-107) Carbon Dioxide Level 28 mmol/L (21-32) Anion Gap 6 (6-14) Blood Urea Nitrogen 12 mg/dL (7-20) Creatinine 0.7 mg/dL (0.6-1.0) Estimated GFR (Cockcroft-Gault) 98.7 Glucose Level 259 mg/dL (70-99) Calcium Level 8.4 mg/dL (8.5-10.1) Phosphorus Level 3.0 mg/dL (2.6-4.7) Magnesium Level 2.0 mg/dL (1.8-2.4) Triglycerides Level 351 mg/dL (0-150) Glucose (Fingerstick) 235 mg/dL (70-99) 218 mg/dL (70-99) 271 mg/dL (70-99) Assessment and Plan Assessmemt and Plan Problems Medical Problems: (1) Abdominal pain Status: Acute (2) Nausea and vomiting Status: Acute Problems: Comment Review of Relevant I have reviewed the following items anita (where applicable) has been applied. Labs Laboratory Tests Test 09/30/16 16:50 09/30/16 23:05 10/01/16 03:05 10/01/16 06:26 Glucose (Fingerstick) 155 mg/dL (70-99) 177 mg/dL (70-99) 177 mg/dL (70-99) White Blood Count 8.6 x10^3/uL (4.0-11.0) Red Blood Count 3.09 x10^6/uL (3.50-5.40) Hemoglobin 9.8 g/dL (12.0-15.5) Hematocrit 28.9 % (36.0-47.0) Mean Corpuscular Volume 94 fL (79-100) Mean Corpuscular Hemoglobin 32 pg (25-35) Mean Corpuscular Hemoglobin Concent 34 g/dL (31-37) Red Cell Distribution Width 14.8 % (11.5-14.5) Platelet Count 206 x10^3/uL (140-400) Neutrophils (%) (Auto) 76 % (31-73) Lymphocytes (%) (Auto) 12 % (24-48) Monocytes (%) (Auto) 11 % (0-9) Eosinophils (%) (Auto) 0 % (0-3) Basophils (%) (Auto) 1 % (0-3) Neutrophils # (Auto) 6.5 x10^3uL (1.8-7.7) Lymphocytes # (Auto) 1.0 x10^3/uL (1.0-4.8) Monocytes # (Auto) 0.9 x10^3/uL (0.0-1.1) Eosinophils # (Auto) 0.0 x10^3/uL (0.0-0.7) Basophils # (Auto) 0.1 x10^3/uL (0.0-0.2) Sodium Level 130 mmol/L (136-145) Potassium Level 4.1 mmol/L (3.5-5.1) Chloride Level 95 mmol/L (98-107) Carbon Dioxide Level 29 mmol/L (21-32) Anion Gap 6 (6-14) Blood Urea Nitrogen 14 mg/dL (7-20) Creatinine 0.7 mg/dL (0.6-1.0) Estimated GFR (Cockcroft-Gault) 98.7 Glucose Level 184 mg/dL (70-99) Calcium Level 8.4 mg/dL (8.5-10.1) Test 10/01/16 11:56 10/02/16 06:00 10/02/16 06:01 10/02/16 07:09 Glucose (Fingerstick) 217 mg/dL (70-99) 235 mg/dL (70-99) 218 mg/dL (70-99) Sodium Level 129 mmol/L (136-145) Potassium Level 3.9 mmol/L (3.5-5.1) Chloride Level 95 mmol/L (98-107) Carbon Dioxide Level 28 mmol/L (21-32) Anion Gap 6 (6-14) Blood Urea Nitrogen 12 mg/dL (7-20) Creatinine 0.7 mg/dL (0.6-1.0) Estimated GFR (Cockcroft-Gault) 98.7 Glucose Level 259 mg/dL (70-99) Calcium Level 8.4 mg/dL (8.5-10.1) Phosphorus Level 3.0 mg/dL (2.6-4.7) Magnesium Level 2.0 mg/dL (1.8-2.4) Triglycerides Level 351 mg/dL (0-150) Test 10/02/16 11:11 Glucose (Fingerstick) 271 mg/dL (70-99) Laboratory Tests Test 10/02/16 06:00 10/02/16 06:01 10/02/16 07:09 10/02/16 11:11 Sodium Level 129 mmol/L (136-145) Potassium Level 3.9 mmol/L (3.5-5.1) Chloride Level 95 mmol/L (98-107) Carbon Dioxide Level 28 mmol/L (21-32) Anion Gap 6 (6-14) Blood Urea Nitrogen 12 mg/dL (7-20) Creatinine 0.7 mg/dL (0.6-1.0) Estimated GFR (Cockcroft-Gault) 98.7 Glucose Level 259 mg/dL (70-99) Calcium Level 8.4 mg/dL (8.5-10.1) Phosphorus Level 3.0 mg/dL (2.6-4.7) Magnesium Level 2.0 mg/dL (1.8-2.4) Triglycerides Level 351 mg/dL (0-150) Glucose (Fingerstick) 235 mg/dL (70-99) 218 mg/dL (70-99) 271 mg/dL (70-99) Medications Current Medications Ondansetron HCl (Zofran) 4 mg PRN Q8HRS PRN IV NAUSEA/VOMITING Last administered on 09/19/16 02:59; Start 09/18/16 at 22:45; Stop 09/19/16 at 22:44 ; Status DC Fentanyl Citrate (Fentanyl 2ml Vial) 50 mcg PRN Q2HR PRN IV PAIN Last administered on 09/19/16 08:14; Start 09/18/16 at 22:45; Stop 09/19/16 at 22:44 ; Status DC Sodium Chloride 1,000 ml @ 125 mls/hr Q8H IV Last administered on 09/19/16 11 :01; Start 09/18/16 at 22:45; Stop 09/19/16 at 22:44; Status DC Hydralazine HCl (Apresoline) 10 mg PRN Q4HRS PRN IVP ELEVATED BP, SEE COMMENTS Last administered on 09/19/16 01:55; Start 09/19/16 at 01:45; Stop 09/19/16 at 12:24; Status DC Potassium Chloride 30 meq/ Sodium Chloride 1,015 ml @ 125 mls/hr 1X ONCE IV Last administered on 09/19/16 03:07; Start 09/19/16 at 01:45; Stop 09/19/16 at 09:52; Status DC Al Hydroxide/Mg Hydroxide (Mylanta Plus Xs) 15 ml 1X ONCE PO Last administered on 09/19/16 05:50; Start 09/19/16 at 06:00; Stop 09/19/16 at 06:01 ; Status DC Famotidine (Pepcid) 20 mg BID IVP Last administered on 09/24/16 09:01; Start 09/19/16 at 09:00; Stop 09/24/16 at 13:12; Status DC Acetaminophen (Tylenol) 650 mg PRN Q6HRS PRN PO FEVER Last administered on 09/25 08:43; Start 09/19/16 at 09:30; Stop 09/26/16 at 14:20; Status DC Ondansetron HCl (Zofran) 4 mg PRN Q6HRS PRN IV NAUSEA/VOMITING Last administered on 09/25/16 05:35; Start 09/19/16 at 09:30; Stop 09/27/16 at 12:26 ; Status DC Morphine Sulfate 2 mg PRN Q2HR PRN IV PAIN; Start 09/19/16 at 09:30; Stop 09/19 at 09:56; Status DC Tramadol HCl (Ultram) 50 mg PRN Q6HRS PRN PO PAIN Last administered on 09:49; Start 09/19/16 at 09:30; Stop 09/26/16 at 14:20; Status DC Hydralazine HCl (Apresoline) 10 mg PRN Q4HRS PRN IVP ELEVATED BP, SEE COMMENTS Last administered on 09/25/16 17:24; Start 09/19/16 at 09:30 Docusate Sodium (Colace) 100 mg PRN DAILY PRN PO CONSTIPATION Last administered on 09/25/16 08:43; Start 09/19/16 at 09:30; Stop 09/26/16 at 14:20 ; Status DC Barium Sulfate (Liquid E-Z Paque) 355 ml 1X ONCE PO ; Start 09/19/16 at 10:00; Stop 09/19/16 at 10:01; Status DC Barium Sulfate (Liquid E-Z Paque) 355 ml 1X ONCE PO ; Start 09/19/16 at 10:00; Stop 09/19/16 at 10:01; Status DC Morphine Sulfate 2 mg PRN Q2HR PRN IV PAIN Last administered on 09/24/16 09:09 ; Start 09/19/16 at 10:00; Stop 09/24/16 at 13:12; Status DC Throat Lozenges (Chloraseptic) 1 spray PRN Q2HR PRN PO SORE THROAT Last administered on 09/19/16 11:01; Start 09/19/16 at 10:15 Potassium Chloride/Sodium Chloride 1,000 ml @ 100 mls/hr Q10H IV Last administered on 09/20/16 01:57; Start 09/19/16 at 12:30; Stop 09/20/16 at 08:19 ; Status DC Heparin Sodium (Porcine) (Heparin Sq) 5,000 unit Q8HRS SQ Last administered on 10/02/16 06:13; Start 09/19/16 at 14:00 Amino Acids/ Glycerin/ Electrolytes 1,000 ml @ 75 mls/hr [id number] IV Last administered on 10/01/16 11:10; Start 09/20/16 at 08:30; Stop 10/01/16 at 21:59 ; Status DC Dextrose (Dextrose 50%-Water Syringe) 25 gm PRN Q15MIN PRN IV SEE COMMENTS Last administered on 09/20/16 11:52; Start 09/20/16 at 11:45; Stop 09/29/16 at 13:46; Status DC Iohexol (Omnipaque 350 Mg/ml) 400 ml 1X ONCE PO Last administered on 12:37; Start 09/20/16 at 12:15; Stop 09/20/16 at 12:16; Status DC Levofloxacin/ Dextrose 100 ml @ 100 mls/hr 1X PREOP PRN IV PRIOR TO PROCEDURE ; Start 09/21/16 at 17:30; Stop 09/22/16 at 18:00; Status DC Ondansetron HCl (Zofran) 4 mg PRN Q6HRS PRN IV NAUSEA/VOMITING; Start 09/22/16 at 07:45; Stop 09/23/16 at 07:44; Status DC Fentanyl Citrate (Fentanyl 2ml Vial) 25 mcg PRN Q5MIN PRN IV MILD PAIN; Start 09/22/16 at 07:45; Stop 09/23/16 at 07:44; Status DC Fentanyl Citrate (Fentanyl 2ml Vial) 50 mcg PRN Q5MIN PRN IV MODERATE PAIN; Start 09/22/16 at 07:45; Stop 09/23/16 at 07:44; Status DC Morphine Sulfate 1 mg PRN Q10MIN PRN IV SEVERE PAIN; Start 09/22/16 at 07:45; Stop 09/23/16 at 07:44; Status DC Ringer's Solution 1,000 ml @ 30 mls/hr Q24H IV ; Start 09/22/16 at 07:45; Stop 09/22/16 at 19:44; Status DC Lidocaine HCl 2 ml PRN 1X PRN ID PRIOR TO IV START; Start 09/22/16 at 07:45; Stop 09/23/16 at 07:44; Status DC Hydromorphone HCl (Dilaudid) 0.5 mg PRN Q10MIN PRN IV SEV PAIN, Second choice; Start 09/22/16 at 07:45; Stop 09/23/16 at 07:44; Status DC Prochlorperazine Edisylate (Compazine) 5 mg PACU PRN PRN IV NAUSEA, MRX1; Start 09/22/16 at 07:45; Stop 09/23/16 at 07:44; Status DC Lorazepam (Ativan) 0.5 mg 1X ONCE IV Last administered on 09/22/16 12:08; Start 09/22/16 at 12:00; Stop 09/22/16 at 12:03; Status DC Pantoprazole Sodium (Protonix) 40 mg DAILYAC PO Last administered on 09/25/16 08:43; Start 09/24/16 at 13:15; Stop 09/26/16 at 14:20; Status DC Levofloxacin/ Dextrose 100 ml @ 100 mls/hr 1X PREOP ONCE IV Last administered on 09/25/16 13:32; Start 09/25/16 at 13:30; Stop 09/25/16 at 14:29 ; Status DC Sevoflurane (Ultane) 60 ml STK-MED ONCE IH ; Start 09/25/16 at 13:40; Stop 09/25 at 13:53; Status DC Fentanyl Citrate (Fentanyl 2ml Vial) 100 mcg STK-MED ONCE .ROUTE ; Start at 13:41; Stop 09/25/16 at 13:53; Status DC Glycopyrrolate (Robinul) 1 mg STK-MED ONCE .ROUTE ; Start 09/25/16 at 13:41; Stop 09/25/16 at 13:53; Status DC Propofol 20 ml @ As Directed STK-MED ONCE IV ; Start 09/25/16 at 13:41; Stop at 13:53; Status DC Ondansetron HCl (Zofran) 4 mg STK-MED ONCE .ROUTE ; Start 09/25/16 at 13:42; Stop 09/25/16 at 13:53; Status DC Dexamethasone Sodium Phosphate (Decadron) 20 mg STK-MED ONCE .ROUTE ; Start at 13:42; Stop 09/25/16 at 13:53; Status DC Lidocaine HCl (Lidocaine Pf 2% Vial) 5 ml STK-MED ONCE .ROUTE ; Start 09/25/16 at 13:42; Stop 09/25/16 at 13:53; Status DC Ondansetron HCl (Zofran) 4 mg PRN Q6HRS PRN IV NAUSEA/VOMITING; Start 09/25/16 at 14:00; Stop 09/26/16 at 13:59; Status DC Fentanyl Citrate (Fentanyl 2ml Vial) 25 mcg PRN Q5MIN PRN IV MILD PAIN; Start 09/25/16 at 14:00; Stop 09/26/16 at 13:59; Status DC Fentanyl Citrate (Fentanyl 2ml Vial) 50 mcg PRN Q5MIN PRN IV MODERATE PAIN Last administered on 09/25/16t 17:31; Start 09/25/16 at 14:00; Stop 09/26/16 at 13:59; Status DC Morphine Sulfate 1 mg PRN Q10MIN PRN IV SEVERE PAIN; Start 09/25/16 at 14:00; Stop 09/26/16 at 13:59; Status DC Ringer's Solution 1,000 ml @ 0 mls/hr Q0M IV ; Start 09/25/16 at 13:53; Stop at 01:52; Status DC Lidocaine HCl 2 ml PRN 1X PRN ID PRIOR TO IV START; Start 09/25/16 at 14:00; Stop 09/26/16 at 13:59; Status DC Hydromorphone HCl (Dilaudid) 0.5 mg PRN Q10MIN PRN IV SEV PAIN, Second choice; Start 09/25/16 at 14:00; Stop 09/26/16 at 13:59; Status DC Prochlorperazine Edisylate (Compazine) 5 mg PACU PRN PRN IV NAUSEA, MRX1; Start 09/25/16 at 14:00; Stop 09/26/16 at 13:59; Status DC Fentanyl Citrate (Fentanyl 2ml Vial) 100 mcg STK-MED ONCE .ROUTE ; Start at 14:08; Stop 09/25/16 at 14:09; Status DC Ringer's Solution 1,000 ml @ 125 mls/hr Q8H IV ; Start 09/25/16 at 14:09; Stop 09/26/16 at 02:08; Status DC Fentanyl Citrate (Fentanyl 2ml Vial) 50 mcg PRN Q5MIN PRN IV pain Last administered on 09/25/16t 14:15; Start 09/25/16 at 14:15; Stop 09/26/16 at 14:20 ; Status DC Succinylcholine Chloride (Anectine) 200 mg STK-MED ONCE .ROUTE ; Start 09/25/16 at 14:20; Stop 09/25/16 at 14:21; Status DC Fentanyl Citrate (Fentanyl 2ml Vial) 100 mcg STK-MED ONCE .ROUTE ; Start at 14:54; Stop 09/25/16 at 14:55; Status DC Enoxaparin Sodium (Lovenox 40mg Syringe) 40 mg Q24H SQ ; Start 09/25/16 at 18:00 ; Stop 09/26/16 at 11:03; Status DC Sodium Chloride (Normal Saline Flush) 3 ml QSHIFT PRN IV AFTER MEDS AND BLOOD DRAWS; Start 09/25/16 at 16:30 Ringer's Solution 1,000 ml @ 100 mls/hr Q10H IV ; Start 09/25/16 at 16:25; Stop 09/25/16 at 23:51; Status DC Naloxone HCl (Narcan) 0.4 mg PRN Q2MIN PRN IV SEE INSTRUCTIONS; Start 09/25/16 at 16:30 Sodium Chloride 1,000 ml @ 25 mls/hr Q24H IV Last administered on 10/01/16 13 :15; Start 09/25/16 at 16:25 Hydromorphone HCl 30 ml @ 0 mls/hr CONT PRN PRN IV PROTOCOL Last administered on 09/30/16 05:32; Start 09/25/16 at 16:30 Ondansetron HCl (Zofran) 4 mg PRN Q6HRS PRN IV NAUESA, 1ST CHOICE Last administered on 09/28/16 07:20; Start 09/25/16 at 16:30 Fentanyl Citrate (Fentanyl 2ml Vial) 100 mcg STK-MED ONCE .ROUTE ; Start at 17:14; Stop 09/25/16 at 17:15; Status DC Acetaminophen (Tylenol) 325 mg PRN Q6HRS PRN [place] fever >100.4 Last administered on 09/28/16 19:28; Start 09/26/16 at 14:30 Bisacodyl (Dulcolax Supp) 10 mg PRN DAILY PRN [place] CONSTIPATION Last administered on 09/30/16 20:16; Start 09/26/16 at 14:30 Famotidine (Pepcid) 20 mg BID IVP Last administered on 10/02/16 10:11; Start 09/26/16 at 21:00 Insulin Aspart (NovoLOG) 0-5 UNITS TIDWMEALS SQ Last administered on 09/29/16 12:19; Start 09/26/16 at 17:00 Dextrose (Dextrose 50%-Water Syringe) 12.5 gm PRN Q15MIN PRN IV SEE COMMENTS; Start 09/26/16 at 15:00 Saliva Substitute (Biotene Moisturizing Mouth) 2 spray PRN Q15MIN PRN PO DRY MOUTH Last administered on 09/28/16 22:06; Start 09/28/16 at 14:00 Sodium Chloride 1,000 ml @ 75 mls/hr 1X ONCE IV Last administered on 14:45; Start 09/29/16 at 14:45; Stop 09/30/16 at 04:04; Status DC Artificial Tears (Artificial Tears) 1 drop PRN Q15MIN PRN OU DRY EYE Last administered on 10/01/16 23:08; Start 10/01/16 at 10:30 Info 1 each PRN DAILY PRN MC SEE COMMENTS Last administered on 10/01/16 16:31 ; Start 10/01/16 at 12:45 Sodium Chloride 90 meq/Potassium Chloride 50 meq/ Potassium Phosphate 13.6 mmol/ Magnesium Sulfate 10 meq/ Calcium Gluconate 10 meq/ Multivitamins 10 ml/Chromium / Copper/Manganese/ Seleni/Zn 1 ml/ Total Parenteral Nutrition/Amino Acids/ Dextrose/ Fat Emulsion Intravenous 1,200 ml @ 50 mls/hr TPN CONT IV Last administered on 10/01/16 23:12; Start 10/01/16 at 22:00; Stop 10/02/16 at 21:59 Sodium Phosphate 15 mmol/Dextrose 255 ml @ 63.75 mls/ hr 1X ONCE IV Last administered on 10/01/16 17:30; Start 10/01/16 at 17:30; Stop 10/01/16 at 21:29 ; Status DC Active Scripts Active Senna S Tablet (Sennosides/Docusate Sodium) 1 Each Tablet 1 Each PO DAILY Reported Lexapro (Escitalopram Oxalate) 20 Mg Tablet 1 Tab PO DAILY Lisinopril-Hctz 20-12.5 Mg Tab (Lisinopril/Hydrochlorothiazide) 1 Each Tablet 1 Tab PO DAILY Lipitor (Atorvastatin Calcium) 20 Mg Tablet 20 Mg PO HS Ambien (Zolpidem Tartrate) 5 Mg Tablet 1 Tab PO QHS Lyrica (Pregabalin) 150 Mg Capsule 150 Mg PO BID 30 Days Buspirone Hcl 10 Mg Tablet 10 Mg PO BID Aspir 81 (Aspirin) 81 Mg Tablet. 1 Tab PO DAILY Vitals/I & O Vital Sign - Last 24 Hours 10/01/16 10/01/16 10/01/16 10/01/16 15:00 19:00 20:00 23:30 Temp 97.9 99.1 97.9 97.9 99.1 97.9 Pulse 82 86 76 Resp 18 18 18 B/P (MAP) 132/69 (90) 130/47 (74) 152/71 (98) Pulse Ox 100 100 100 O2 Delivery Nasal Cannula Nasal Cannula Nasal Cannula Nasal Cannula O2 Flow Rate 4.0 4.0 4.0 4.0 10/02/16 10/02/16 10/02/16 10/02/16 03:30 07:07 07:43 11:04 Temp 98.6 98.1 98.2 98.6 98.1 98.2 Pulse 80 76 80 Resp 18 18 18 B/P (MAP) 158/68 (98) 131/53 (79) 145/62 (89) Pulse Ox 100 100 100 O2 Delivery Nasal Cannula Nasal Cannula Nasal Cannula Nasal Cannula O2 Flow Rate 4.0 4.0 4.0 4.0 Intake and Output 10/01/16 10/01/16 10/02/16 14:59 22:59 06:59 Intake Total 120 ml 689 ml Output Total 300 ml 650 ml Balance -300 ml -530 ml 689 ml SELVIN PIMENTEL MD Oct 02, 2016 12:34
--- NOTE | 2016-10-02 13:08 | PDOC ---
SURGICAL PROGRESS NOTE Subjective feeling ok poor appetite no emesis Vital Signs Vital Signs Date Time Temp Pulse Resp B/P (MAP) Pulse Ox O2 Delivery O2 Flow Rate FiO2 10/02/16 11:04 98.2 80 18 145/62 (89) 100 Nasal Cannula 4.0 98.2 I&O Intake and Output 10/02/16 07:00 Intake Total 809 ml Output Total 950 ml Balance -141 ml Intake Oral 120 ml IV Total 689 ml Output Urine Total 650 ml Drainage Total 300 ml # Voids 2 General: Alert, Oriented X3, Cooperative, No acute distress Abdomen: Soft, Other (incision c/d/i, no erythema, reba drain in place, G tube to drainage) Labs Laboratory Tests Test 09/30/16 16:50 09/30/16 23:05 10/01/16 03:05 10/01/16 06:26 Glucose (Fingerstick) 155 mg/dL (70-99) 177 mg/dL (70-99) 177 mg/dL (70-99) White Blood Count 8.6 x10^3/uL (4.0-11.0) Red Blood Count 3.09 x10^6/uL (3.50-5.40) Hemoglobin 9.8 g/dL (12.0-15.5) Hematocrit 28.9 % (36.0-47.0) Mean Corpuscular Volume 94 fL (79-100) Mean Corpuscular Hemoglobin 32 pg (25-35) Mean Corpuscular Hemoglobin Concent 34 g/dL (31-37) Red Cell Distribution Width 14.8 % (11.5-14.5) Platelet Count 206 x10^3/uL (140-400) Neutrophils (%) (Auto) 76 % (31-73) Lymphocytes (%) (Auto) 12 % (24-48) Monocytes (%) (Auto) 11 % (0-9) Eosinophils (%) (Auto) 0 % (0-3) Basophils (%) (Auto) 1 % (0-3) Neutrophils # (Auto) 6.5 x10^3uL (1.8-7.7) Lymphocytes # (Auto) 1.0 x10^3/uL (1.0-4.8) Monocytes # (Auto) 0.9 x10^3/uL (0.0-1.1) Eosinophils # (Auto) 0.0 x10^3/uL (0.0-0.7) Basophils # (Auto) 0.1 x10^3/uL (0.0-0.2) Sodium Level 130 mmol/L (136-145) Potassium Level 4.1 mmol/L (3.5-5.1) Chloride Level 95 mmol/L (98-107) Carbon Dioxide Level 29 mmol/L (21-32) Anion Gap 6 (6-14) Blood Urea Nitrogen 14 mg/dL (7-20) Creatinine 0.7 mg/dL (0.6-1.0) Estimated GFR (Cockcroft-Gault) 98.7 Glucose Level 184 mg/dL (70-99) Calcium Level 8.4 mg/dL (8.5-10.1) Test 10/01/16 11:56 10/02/16 06:00 10/02/16 06:01 10/02/16 07:09 Glucose (Fingerstick) 217 mg/dL (70-99) 235 mg/dL (70-99) 218 mg/dL (70-99) Sodium Level 129 mmol/L (136-145) Potassium Level 3.9 mmol/L (3.5-5.1) Chloride Level 95 mmol/L (98-107) Carbon Dioxide Level 28 mmol/L (21-32) Anion Gap 6 (6-14) Blood Urea Nitrogen 12 mg/dL (7-20) Creatinine 0.7 mg/dL (0.6-1.0) Estimated GFR (Cockcroft-Gault) 98.7 Glucose Level 259 mg/dL (70-99) Calcium Level 8.4 mg/dL (8.5-10.1) Phosphorus Level 3.0 mg/dL (2.6-4.7) Magnesium Level 2.0 mg/dL (1.8-2.4) Triglycerides Level 351 mg/dL (0-150) Test 10/02/16 11:11 Glucose (Fingerstick) 271 mg/dL (70-99) Laboratory Tests Test 10/02/16 06:00 10/02/16 06:01 10/02/16 07:09 10/02/16 11:11 Sodium Level 129 mmol/L (136-145) Potassium Level 3.9 mmol/L (3.5-5.1) Chloride Level 95 mmol/L (98-107) Carbon Dioxide Level 28 mmol/L (21-32) Anion Gap 6 (6-14) Blood Urea Nitrogen 12 mg/dL (7-20) Creatinine 0.7 mg/dL (0.6-1.0) Estimated GFR (Cockcroft-Gault) 98.7 Glucose Level 259 mg/dL (70-99) Calcium Level 8.4 mg/dL (8.5-10.1) Phosphorus Level 3.0 mg/dL (2.6-4.7) Magnesium Level 2.0 mg/dL (1.8-2.4) Triglycerides Level 351 mg/dL (0-150) Glucose (Fingerstick) 235 mg/dL (70-99) 218 mg/dL (70-99) 271 mg/dL (70-99) Problem List Problems Medical Problems: (1) Abdominal pain Status: Acute (2) Nausea and vomiting Status: Acute Assessment/Plan supportive care dc planning Problems: XAVIER POLK APRN Oct 02, 2016 13:08
[2016-10-02] MEDS: TPN PER PHARMACY MC PRN (14:38)
--- NOTE | 2016-10-02 14:40 | PDOC ---
Subjective: Subjective: Tells me ate some chicken and drank a coke. Pain managed. Objective: Objective: Reviewed other notes. Vital Signs: Vital Signs Date Time Temp Pulse Resp B/P (MAP) Pulse Ox O2 Delivery O2 Flow Rate FiO2 10/02/16 11:04 98.2 80 18 145/62 (89) 100 Nasal Cannula 4.0 98.2 Labs: Laboratory Tests Test 10/02/16 06:00 10/02/16 06:01 10/02/16 07:09 10/02/16 11:11 Sodium Level 129 mmol/L Potassium Level 3.9 mmol/L Chloride Level 95 mmol/L Carbon Dioxide Level 28 mmol/L Anion Gap 6 Blood Urea Nitrogen 12 mg/dL Creatinine 0.7 mg/dL Estimated GFR (Cockcroft-Gault) 98.7 Glucose Level 259 mg/dL Calcium Level 8.4 mg/dL Phosphorus Level 3.0 mg/dL Magnesium Level 2.0 mg/dL Triglycerides Level 351 mg/dL Glucose (Fingerstick) 235 mg/dL 218 mg/dL 271 mg/dL PE: GEN: NAD LUNGS: nasal cannula HEART: RRR ABD: BS+, soft NEURO/PSYCH: A & O 3 A/P: Malignant SBO/metastatic malignancy (likely uterine) s/p expl lap -- Continue same per GI. Await DC plans. EDMOND BAIRD Oct 02, 2016 14:40
[2016-10-02 14:48] VITALS: BP 138/44
[2016-10-02] MEDS: IV NORMAL SALINE 1000ML BAG 1,000 ML IV SCH (15:11)
[2016-10-02] MEDS: busPIRone 10 MG TABLET. PO SCH ×2 (15:21→22:08)
[2016-10-02] MEDS: ASPIRIN ENTERIC COATED 81 MG TABLET.DR. PO SCH (15:21)
[2016-10-02] MEDS: SENNOSIDES/DOCUSATE 8.6/50MG TABLET. PO SCH (15:21)
[2016-10-02] MEDS: PREGABALIN 75 MG CAPSULE PO SCH ×2 (15:22→22:08)
[2016-10-02] MEDS: ACETAMINOPHEN 325 MG SUPP.RECT. PR PRN (15:22)
[2016-10-02] MEDS: HYDROcodone/APAP 5/325MG 1 TAB TABLET PO PRN (18:27)
[2016-10-02 19:00] VITALS: BP 101/54
[2016-10-02] MEDS ORDERED: TOTAL PARENTERAL NUTRITION IV SCH ×10 (22:00)
[2016-10-02] MEDS ORDERED: DEXTROSE 70% IV SCH ×10 (22:00)
[2016-10-02] MEDS ORDERED: [UNRECOGNIZED DRUG - OTHER] IV SCH ×10 (22:00)
[2016-10-02] MEDS ORDERED: AMINO ACIDS IV SCH ×10 (22:00)
[2016-10-02] MEDS: ATORVASTATIN CALCIUM 20 MG TABLET PO SCH (22:08)
[2016-10-02 23:00] VITALS: BP 124/54
[2016-10-03 02:45] VITALS: BP 130/55
[2016-10-03] MEDS: HEPARIN PF for SUB-Q USE 5,000 UNIT/0.5 ML VIAL. SQ SCH ×3 (06:12→21:44)
[2016-10-03 06:28] LABS: CALCIUM 8.2 mg/dL (8.5-10.1); CREATININE 0.7 mg/dL (0.6-1.0); GFR 98.7; MAGNESIUM 1.9 mg/dL (1.8-2.4); POTASSIUM 4.1 mmol/L (3.5-5.1)
[2016-10-03 07:15] VITALS: BP 123/46
[2016-10-03] MEDS: ASPIRIN ENTERIC COATED 81 MG TABLET.DR. PO SCH (08:59)
[2016-10-03] MEDS: busPIRone 10 MG TABLET. PO SCH ×2 (08:59→21:41)
[2016-10-03] MEDS: CITALOPRAM 20 MG TABLET. PO SCH (08:59)
[2016-10-03] MEDS: SENNOSIDES/DOCUSATE 8.6/50MG TABLET. PO SCH (09:00)
[2016-10-03] MEDS: PREGABALIN 75 MG CAPSULE PO SCH ×2 (09:00→21:41)
[2016-10-03] MEDS: FAMOTIDINE 20 MG/2 ML VIAL IVP SCH ×2 (09:00→21:46)
[2016-10-03] MEDS: HYDROcodone/APAP 5/325MG 1 TAB TABLET PO PRN ×4 (09:00→21:45)
--- NOTE | 2016-10-03 09:02 | PDOC ---
PROGRESS NOTES Subjective Subjective f/u of Recurrent metastatic endometrial carcinoma, stage 4 ROS - c/o of abd pain Objective Objective Vital Signs Date Time Temp Pulse Resp B/P (MAP) Pulse Ox O2 Delivery O2 Flow Rate FiO2 10/03/16 07:15 98.0 84 18 123/46 (71) 98 Nasal Cannula 2.0 98.0 Intake and Output 10/03/16 07:00 Intake Total 350 ml Output Total 500 ml Balance -150 ml Intake Oral 350 ml Output Urine Total 200 ml Gastric Drainage Total 300 ml # Voids 5 Physical Exam Heart: Normal S1, Normal S2 General: Alert, Oriented X3 Lungs: Clear to auscultation Neuro: Normal speech Psych/Mental Status: Mental status NL Assessment Assessment Problems Medical Problems: (1) Abdominal pain Status: Acute (2) Nausea and vomiting Status: Acute IMPRESSION AND PLAN: 1. Recurrent metastatic endometrial carcinoma, stage 4. She was initially diagnosed with endometrial carcinoma in 2014, status post surgery, chemotherapy and radiation therapy. She received carboplatin and Taxol at [facility] by Dr. Santiago Funk. She now has evidence of progressive disease. I would recommend follow up with Dr. Santiago Funk regarding further palliative chemotherapy. All her questions were answered. Appreciate palliative care consult. Family meeting today. PATHOLOGY REPORT * * * * * * * * FINAL DIAGNOSIS: Fibromembranous tissue, abdominal wall mass biopsy: - METASTATIC POORLY DIFFERENTIATED ADENOCARCINOMA. 2. Small-bowel obstruction, status post exploratory laparotomy and lysis of adhesions on 09/25/2016. Continue postoperative care for Dr. Johnathan Carrillo. 3. Abd pain - post-op, continue pain management. Improving. I d/w RN 4. Anemia, monitor hb.Stable 9.8 on 10/01/16 Comment Review of Relevant I have reviewed the following items anita (where applicable) has been applied. Labs Laboratory Tests Test 10/01/16 11:56 10/02/16 06:00 10/02/16 06:01 10/02/16 07:09 Glucose (Fingerstick) 217 mg/dL (70-99) 235 mg/dL (70-99) 218 mg/dL (70-99) Sodium Level 129 mmol/L (136-145) Potassium Level 3.9 mmol/L (3.5-5.1) Chloride Level 95 mmol/L (98-107) Carbon Dioxide Level 28 mmol/L (21-32) Anion Gap 6 (6-14) Blood Urea Nitrogen 12 mg/dL (7-20) Creatinine 0.7 mg/dL (0.6-1.0) Estimated GFR (Cockcroft-Gault) 98.7 Glucose Level 259 mg/dL (70-99) Calcium Level 8.4 mg/dL (8.5-10.1) Phosphorus Level 3.0 mg/dL (2.6-4.7) Magnesium Level 2.0 mg/dL (1.8-2.4) Triglycerides Level 351 mg/dL (0-150) Test 10/02/16 11:11 10/02/16 16:35 10/02/16 20:40 10/03/16 05:40 Glucose (Fingerstick) 271 mg/dL (70-99) 205 mg/dL (70-99) 204 mg/dL (70-99) Sodium Level 133 mmol/L (136-145) Potassium Level 4.1 mmol/L (3.5-5.1) Chloride Level 98 mmol/L (98-107) Carbon Dioxide Level 27 mmol/L (21-32) Anion Gap 8 (6-14) Blood Urea Nitrogen 11 mg/dL (7-20) Creatinine 0.7 mg/dL (0.6-1.0) Estimated GFR (Cockcroft-Gault) 98.7 Glucose Level 244 mg/dL (70-99) Calcium Level 8.2 mg/dL (8.5-10.1) Phosphorus Level 3.0 mg/dL (2.6-4.7) Magnesium Level 1.9 mg/dL (1.8-2.4) Test 10/03/16 07:41 Glucose (Fingerstick) 284 mg/dL (70-99) Laboratory Tests Test 10/02/16 11:11 10/02/16 16:35 10/02/16 20:40 10/03/16 05:40 Glucose (Fingerstick) 271 mg/dL (70-99) 205 mg/dL (70-99) 204 mg/dL (70-99) Sodium Level 133 mmol/L (136-145) Potassium Level 4.1 mmol/L (3.5-5.1) Chloride Level 98 mmol/L (98-107) Carbon Dioxide Level 27 mmol/L (21-32) Anion Gap 8 (6-14) Blood Urea Nitrogen 11 mg/dL (7-20) Creatinine 0.7 mg/dL (0.6-1.0) Estimated GFR (Cockcroft-Gault) 98.7 Glucose Level 244 mg/dL (70-99) Calcium Level 8.2 mg/dL (8.5-10.1) Phosphorus Level 3.0 mg/dL (2.6-4.7) Magnesium Level 1.9 mg/dL (1.8-2.4) Test 10/03/16 07:41 Glucose (Fingerstick) 284 mg/dL (70-99) Medications Current Medications Ondansetron HCl (Zofran) 4 mg PRN Q8HRS PRN IV NAUSEA/VOMITING Last administered on 09/19/16 02:59; Start 09/18/16 at 22:45; Stop 09/19/16 at 22:44 ; Status DC Fentanyl Citrate (Fentanyl 2ml Vial) 50 mcg PRN Q2HR PRN IV PAIN Last administered on 09/19/16 08:14; Start 09/18/16 at 22:45; Stop 09/19/16 at 22:44 ; Status DC Sodium Chloride 1,000 ml @ 125 mls/hr Q8H IV Last administered on 09/19/16 11 :01; Start 09/18/16 at 22:45; Stop 09/19/16 at 22:44; Status DC Hydralazine HCl (Apresoline) 10 mg PRN Q4HRS PRN IVP ELEVATED BP, SEE COMMENTS Last administered on 09/19/16 01:55; Start 09/19/16 at 01:45; Stop 09/19/16 at 12:24; Status DC Potassium Chloride 30 meq/ Sodium Chloride 1,015 ml @ 125 mls/hr 1X ONCE IV Last administered on 09/19/16 03:07; Start 09/19/16 at 01:45; Stop 09/19/16 at 09:52; Status DC Al Hydroxide/Mg Hydroxide (Mylanta Plus Xs) 15 ml 1X ONCE PO Last administered on 09/19/16 05:50; Start 09/19/16 at 06:00; Stop 09/19/16 at 06:01 ; Status DC Famotidine (Pepcid) 20 mg BID IVP Last administered on 09/24/16 09:01; Start 09/19/16 at 09:00; Stop 09/24/16 at 13:12; Status DC Acetaminophen (Tylenol) 650 mg PRN Q6HRS PRN PO FEVER Last administered on 09/25 08:43; Start 09/19/16 at 09:30; Stop 09/26/16 at 14:20; Status DC Ondansetron HCl (Zofran) 4 mg PRN Q6HRS PRN IV NAUSEA/VOMITING Last administered on 09/25/16 05:35; Start 09/19/16 at 09:30; Stop 09/27/16 at 12:26 ; Status DC Morphine Sulfate 2 mg PRN Q2HR PRN IV PAIN; Start 09/19/16 at 09:30; Stop 09/19 at 09:56; Status DC Tramadol HCl (Ultram) 50 mg PRN Q6HRS PRN PO PAIN Last administered on 09:49; Start 09/19/16 at 09:30; Stop 09/26/16 at 14:20; Status DC Hydralazine HCl (Apresoline) 10 mg PRN Q4HRS PRN IVP ELEVATED BP, SEE COMMENTS Last administered on 09/25/16 17:24; Start 09/19/16 at 09:30 Docusate Sodium (Colace) 100 mg PRN DAILY PRN PO CONSTIPATION Last administered on 09/25/16 08:43; Start 09/19/16 at 09:30; Stop 09/26/16 at 14:20 ; Status DC Barium Sulfate (Liquid E-Z Paque) 355 ml 1X ONCE PO ; Start 09/19/16 at 10:00; Stop 09/19/16 at 10:01; Status DC Barium Sulfate (Liquid E-Z Paque) 355 ml 1X ONCE PO ; Start 09/19/16 at 10:00; Stop 09/19/16 at 10:01; Status DC Morphine Sulfate 2 mg PRN Q2HR PRN IV PAIN Last administered on 09/24/16 09:09 ; Start 09/19/16 at 10:00; Stop 09/24/16 at 13:12; Status DC Throat Lozenges (Chloraseptic) 1 spray PRN Q2HR PRN PO SORE THROAT Last administered on 09/19/16 11:01; Start 09/19/16 at 10:15 Potassium Chloride/Sodium Chloride 1,000 ml @ 100 mls/hr Q10H IV Last administered on 09/20/16 01:57; Start 09/19/16 at 12:30; Stop 09/20/16 at 08:19 ; Status DC Heparin Sodium (Porcine) (Heparin Sq) 5,000 unit Q8HRS SQ Last administered on 10/03/16 06:12; Start 09/19/16 at 14:00 Amino Acids/ Glycerin/ Electrolytes 1,000 ml @ 75 mls/hr [id number] IV Last administered on 10/01/16 11:10; Start 09/20/16 at 08:30; Stop 10/01/16 at 21:59 ; Status DC Dextrose (Dextrose 50%-Water Syringe) 25 gm PRN Q15MIN PRN IV SEE COMMENTS Last administered on 09/20/16 11:52; Start 09/20/16 at 11:45; Stop 09/29/16 at 13:46; Status DC Iohexol (Omnipaque 350 Mg/ml) 400 ml 1X ONCE PO Last administered on 12:37; Start 09/20/16 at 12:15; Stop 09/20/16 at 12:16; Status DC Levofloxacin/ Dextrose 100 ml @ 100 mls/hr 1X PREOP PRN IV PRIOR TO PROCEDURE ; Start 09/21/16 at 17:30; Stop 09/22/16 at 18:00; Status DC Ondansetron HCl (Zofran) 4 mg PRN Q6HRS PRN IV NAUSEA/VOMITING; Start 09/22/16 at 07:45; Stop 09/23/16 at 07:44; Status DC Fentanyl Citrate (Fentanyl 2ml Vial) 25 mcg PRN Q5MIN PRN IV MILD PAIN; Start 09/22/16 at 07:45; Stop 09/23/16 at 07:44; Status DC Fentanyl Citrate (Fentanyl 2ml Vial) 50 mcg PRN Q5MIN PRN IV MODERATE PAIN; Start 09/22/16 at 07:45; Stop 09/23/16 at 07:44; Status DC Morphine Sulfate 1 mg PRN Q10MIN PRN IV SEVERE PAIN; Start 09/22/16 at 07:45; Stop 09/23/16 at 07:44; Status DC Ringer's Solution 1,000 ml @ 30 mls/hr Q24H IV ; Start 09/22/16 at 07:45; Stop 09/22/16 at 19:44; Status DC Lidocaine HCl 2 ml PRN 1X PRN ID PRIOR TO IV START; Start 09/22/16 at 07:45; Stop 09/23/16 at 07:44; Status DC Hydromorphone HCl (Dilaudid) 0.5 mg PRN Q10MIN PRN IV SEV PAIN, Second choice; Start 09/22/16 at 07:45; Stop 09/23/16 at 07:44; Status DC Prochlorperazine Edisylate (Compazine) 5 mg PACU PRN PRN IV NAUSEA, MRX1; Start 09/22/16 at 07:45; Stop 09/23/16 at 07:44; Status DC Lorazepam (Ativan) 0.5 mg 1X ONCE IV Last administered on 09/22/16t 12:08; Start 09/22/16 at 12:00; Stop 09/22/16 at 12:03; Status DC Pantoprazole Sodium (Protonix) 40 mg DAILYAC PO Last administered on 09/25/16 08:43; Start 09/24/16 at 13:15; Stop 09/26/16 at 14:20; Status DC Levofloxacin/ Dextrose 100 ml @ 100 mls/hr 1X PREOP ONCE IV Last administered on 09/25/16t 13:32; Start 09/25/16 at 13:30; Stop 09/25/16 at 14:29 ; Status DC Sevoflurane (Ultane) 60 ml STK-MED ONCE IH ; Start 09/25/16 at 13:40; Stop 09/25 at 13:53; Status DC Fentanyl Citrate (Fentanyl 2ml Vial) 100 mcg STK-MED ONCE .ROUTE ; Start at 13:41; Stop 09/25/16 at 13:53; Status DC Glycopyrrolate (Robinul) 1 mg STK-MED ONCE .ROUTE ; Start 09/25/16 at 13:41; Stop 09/25/16 at 13:53; Status DC Propofol 20 ml @ As Directed STK-MED ONCE IV ; Start 09/25/16 at 13:41; Stop at 13:53; Status DC Ondansetron HCl (Zofran) 4 mg STK-MED ONCE .ROUTE ; Start 09/25/16 at 13:42; Stop 09/25/16 at 13:53; Status DC Dexamethasone Sodium Phosphate (Decadron) 20 mg STK-MED ONCE .ROUTE ; Start at 13:42; Stop 09/25/16 at 13:53; Status DC Lidocaine HCl (Lidocaine Pf 2% Vial) 5 ml STK-MED ONCE .ROUTE ; Start 09/25/16 at 13:42; Stop 09/25/16 at 13:53; Status DC Ondansetron HCl (Zofran) 4 mg PRN Q6HRS PRN IV NAUSEA/VOMITING; Start 09/25/16 at 14:00; Stop 09/26/16 at 13:59; Status DC Fentanyl Citrate (Fentanyl 2ml Vial) 25 mcg PRN Q5MIN PRN IV MILD PAIN; Start 09/25/16 at 14:00; Stop 09/26/16 at 13:59; Status DC Fentanyl Citrate (Fentanyl 2ml Vial) 50 mcg PRN Q5MIN PRN IV MODERATE PAIN Last administered on 09/25/16t 17:31; Start 09/25/16 at 14:00; Stop 09/26/16 at 13:59; Status DC Morphine Sulfate 1 mg PRN Q10MIN PRN IV SEVERE PAIN; Start 09/25/16 at 14:00; Stop 09/26/16 at 13:59; Status DC Ringer's Solution 1,000 ml @ 0 mls/hr Q0M IV ; Start 09/25/16 at 13:53; Stop at 01:52; Status DC Lidocaine HCl 2 ml PRN 1X PRN ID PRIOR TO IV START; Start 09/25/16 at 14:00; Stop 09/26/16 at 13:59; Status DC Hydromorphone HCl (Dilaudid) 0.5 mg PRN Q10MIN PRN IV SEV PAIN, Second choice; Start 09/25/16 at 14:00; Stop 09/26/16 at 13:59; Status DC Prochlorperazine Edisylate (Compazine) 5 mg PACU PRN PRN IV NAUSEA, MRX1; Start 09/25/16 at 14:00; Stop 09/26/16 at 13:59; Status DC Fentanyl Citrate (Fentanyl 2ml Vial) 100 mcg STK-MED ONCE .ROUTE ; Start at 14:08; Stop 09/25/16 at 14:09; Status DC Ringer's Solution 1,000 ml @ 125 mls/hr Q8H IV ; Start 09/25/16 at 14:09; Stop 09/26/16 at 02:08; Status DC Fentanyl Citrate (Fentanyl 2ml Vial) 50 mcg PRN Q5MIN PRN IV pain Last administered on 09/25/16t 14:15; Start 09/25/16 at 14:15; Stop 09/26/16 at 14:20 ; Status DC Succinylcholine Chloride (Anectine) 200 mg STK-MED ONCE .ROUTE ; Start 09/25/16 at 14:20; Stop 09/25/16 at 14:21; Status DC Fentanyl Citrate (Fentanyl 2ml Vial) 100 mcg STK-MED ONCE .ROUTE ; Start at 14:54; Stop 09/25/16 at 14:55; Status DC Enoxaparin Sodium (Lovenox 40mg Syringe) 40 mg Q24H SQ ; Start 09/25/16 at 18:00 ; Stop 09/26/16 at 11:03; Status DC Sodium Chloride (Normal Saline Flush) 3 ml QSHIFT PRN IV AFTER MEDS AND BLOOD DRAWS; Start 09/25/16 at 16:30 Ringer's Solution 1,000 ml @ 100 mls/hr Q10H IV ; Start 09/25/16 at 16:25; Stop 09/25/16 at 23:51; Status DC Naloxone HCl (Narcan) 0.4 mg PRN Q2MIN PRN IV SEE INSTRUCTIONS; Start 09/25/16 at 16:30 Sodium Chloride 1,000 ml @ 25 mls/hr Q24H IV Last administered on 10/02/16t 15 :11; Start 09/25/16 at 16:25 Hydromorphone HCl 30 ml @ 0 mls/hr CONT PRN PRN IV PROTOCOL Last administered on 09/30/16 05:32; Start 09/25/16 at 16:30; Stop 10/02/16 at 12:29; Status DC Ondansetron HCl (Zofran) 4 mg PRN Q6HRS PRN IV NAUESA, 1ST CHOICE Last administered on 09/28/16 07:20; Start 09/25/16 at 16:30 Fentanyl Citrate (Fentanyl 2ml Vial) 100 mcg STK-MED ONCE .ROUTE ; Start at 17:14; Stop 09/25/16 at 17:15; Status DC Acetaminophen (Tylenol) 325 mg PRN Q6HRS PRN DE fever >100.4 Last administered on 10/02/16 15:22; Start 09/26/16 at 14:30 Bisacodyl (Dulcolax Supp) 10 mg PRN DAILY PRN DE CONSTIPATION Last administered on 09/30/16 20:16; Start 09/26/16 at 14:30 Famotidine (Pepcid) 20 mg BID IVP Last administered on 10/02/16 22:08; Start 09/26/16 at 21:00 Insulin Aspart (NovoLOG) 0-5 UNITS TIDWMEALS SQ Last administered on 09/29/16 12:19; Start 09/26/16 at 17:00; Stop 10/02/16 at 12:29; Status DC Dextrose (Dextrose 50%-Water Syringe) 12.5 gm PRN Q15MIN PRN IV SEE COMMENTS; Start 09/26/16 at 15:00; Status Cancel Saliva Substitute (Biotene Moisturizing Mouth) 2 spray PRN Q15MIN PRN PO DRY MOUTH Last administered on 09/28/16 22:06; Start 09/28/16 at 14:00 Sodium Chloride 1,000 ml @ 75 mls/hr 1X ONCE IV Last administered on 14:45; Start 09/29/16 at 14:45; Stop 09/30/16 at 04:04; Status DC Artificial Tears (Artificial Tears) 1 drop PRN Q15MIN PRN OU DRY EYE Last administered on 10/01/16 23:08; Start 10/01/16 at 10:30 Info 1 each PRN DAILY PRN MC SEE COMMENTS Last administered on 10/02/16 14:38 ; Start 10/01/16 at 12:45 Sodium Chloride 90 meq/Potassium Chloride 50 meq/ Potassium Phosphate 13.6 mmol/ Magnesium Sulfate 10 meq/ Calcium Gluconate 10 meq/ Multivitamins 10 ml/Chromium / Copper/Manganese/ Seleni/Zn 1 ml/ Total Parenteral Nutrition/Amino Acids/ Dextrose/ Fat Emulsion Intravenous 1,200 ml @ 50 mls/hr TPN CONT IV Last administered on 10/01/16 23:12; Start 10/01/16 at 22:00; Stop 10/02/16 at 21:59 ; Status DC Sodium Phosphate 15 mmol/Dextrose 255 ml @ 63.75 mls/ hr 1X ONCE IV Last administered on 10/01/16 17:30; Start 10/01/16 at 17:30; Stop 10/01/16 at 21:29 ; Status DC Aspirin (Ecotrin) 81 mg DAILY PO Last administered on 10/02/16 15:21; Start at 13:00 Atorvastatin Calcium (Lipitor) 20 mg HS PO Last administered on 10/02/16 22:08 ; Start 10/02/16 at 21:00 Buspirone HCl (Buspar) 10 mg BID PO Last administered on 10/02/16 22:08; Start 10/02/16 at 13:00 Senna/Docusate Sodium (Senna Plus) 1 tab DAILY PO Last administered on 15:21; Start 10/02/16 at 13:00 Citalopram Hydrobromide (CeleXA) 40 mg DAILY PO ; Start 10/03/16 at 09:00 Pregabalin (Lyrica) 150 mg BID PO Last administered on 10/02/16 22:08; Start 10/02/16 at 13:00 Morphine Sulfate 2 mg PRN Q2HR PRN IV PAIN; Start 10/02/16 at 12:30 Morphine Sulfate 4 mg PRN Q2HR PRN IV PAIN; Start 10/02/16 at 12:30 Tramadol HCl (Ultram) 50 mg PRN Q6HRS PRN PO PAIN; Start 10/02/16 at 12:30 Acetaminophen/ Hydrocodone Bitart (Lortab 5/325) 1 tab PRN Q4HRS PRN PO PAIN Last administered on 10/02/16 18:27; Start 10/02/16 at 12:30 Insulin Aspart (NovoLOG) 0-9 UNITS TIDWMEALS SQ Last administered on 10/02/16 18:36; Start 10/02/16 at 13:00 Dextrose (Dextrose 50%-Water Syringe) 12.5 gm PRN Q15MIN PRN IV SEE COMMENTS; Start 10/02/16 at 12:30 Sodium Chloride 90 meq/Potassium Chloride 50 meq/ Potassium Phosphate 13.6 mmol/ Magnesium Sulfate 10 meq/ Calcium Gluconate 10 meq/ Multivitamins 10 ml/Chromium / Copper/Manganese/ Seleni/Zn 1 ml/ Total Parenteral Nutrition/Amino Acids/ Dextrose/ Fat Emulsion Intravenous 1,200 ml @ 50 mls/hr TPN CONT IV Last administered on 10/02/16t 23:55; Start 10/02/16 at 22:00; Stop 10/03/16 at 21:59 Active Scripts Active Senna S Tablet (Sennosides/Docusate Sodium) 1 Each Tablet 1 Each PO DAILY Reported Lexapro (Escitalopram Oxalate) 20 Mg Tablet 1 Tab PO DAILY Lisinopril-Hctz 20-12.5 Mg Tab (Lisinopril/Hydrochlorothiazide) 1 Each Tablet 1 Tab PO DAILY Lipitor (Atorvastatin Calcium) 20 Mg Tablet 20 Mg PO HS Ambien (Zolpidem Tartrate) 5 Mg Tablet 1 Tab PO QHS Lyrica (Pregabalin) 150 Mg Capsule 150 Mg PO BID 30 Days Buspirone Hcl 10 Mg Tablet 10 Mg PO BID Aspir 81 (Aspirin) 81 Mg Tablet. 1 Tab PO DAILY Vitals/I & O Vital Sign - Last 24 Hours 10/02/16 10/02/16 10/02/16 10/02/16 11:04 14:48 18:27 19:00 Temp 98.2 98.3 98.1 98.2 98.3 98.1 Pulse 80 88 85 Resp 16 B/P (MAP) 145/62 (89) 138/44 (75) 101/54 (70) Pulse Ox 100 100 100 O2 Delivery Nasal Cannula Nasal Cannula Room Air Nasal Cannula O2 Flow Rate 4.0 4.0 4.0 10/02/16 10/02/16 10/02/16 10/03/16 19:49 20:00 23:00 02:45 Temp 98.8 98.1 98.8 98.1 Pulse 79 84 Resp 16 16 B/P (MAP) 124/54 (77) 130/55 (80) Pulse Ox 100 98 O2 Delivery Room Air Nasal Cannula Nasal Cannula Nasal Cannula O2 Flow Rate 4.0 4.0 2.0 8/25/17 07:15 Temp 98.0 98.0 Pulse 84 Resp 18 B/P (MAP) 123/46 (71) Pulse Ox 98 O2 Delivery Nasal Cannula O2 Flow Rate 2.0 Intake and Output 10/02/16 10/02/16 10/03/16 15:00 23:00 07:00 Intake Total 300 ml 50 ml Output Total 200 ml 300 ml Balance 100 ml -250 ml JAIRON OSMAN MD Oct 03, 2016 09:02
[2016-10-03] MEDS: INSULIN ASPART 300 UNITS/3 ML INSULN.PEN SQ SCH ×3 (09:12→17:38)
--- NOTE | 2016-10-03 09:51 | PDOC ---
SURGICAL PROGRESS NOTE Subjective Pt without new c/o, danyell some PO, mild confusion Vital Signs Vital Signs Date Time Temp Pulse Resp B/P (MAP) Pulse Ox O2 Delivery O2 Flow Rate FiO2 10/03/16 09:00 98 Nasal Cannula 2.0 10/03/16 07:15 98.0 84 18 123/46 (71) 98.0 I&O Intake and Output 10/03/16 07:00 Intake Total 350 ml Output Total 500 ml Balance -150 ml Intake Oral 350 ml Output Urine Total 200 ml Gastric Drainage Total 300 ml # Voids 5 General: Alert, Cooperative, No acute distress Abdomen: Soft, No tenderness, Other (G-tube in place) Labs Laboratory Tests Test 10/01/16 11:56 10/02/16 06:00 10/02/16 06:01 10/02/16 07:09 Glucose (Fingerstick) 217 mg/dL (70-99) 235 mg/dL (70-99) 218 mg/dL (70-99) Sodium Level 129 mmol/L (136-145) Potassium Level 3.9 mmol/L (3.5-5.1) Chloride Level 95 mmol/L (98-107) Carbon Dioxide Level 28 mmol/L (21-32) Anion Gap 6 (6-14) Blood Urea Nitrogen 12 mg/dL (7-20) Creatinine 0.7 mg/dL (0.6-1.0) Estimated GFR (Cockcroft-Gault) 98.7 Glucose Level 259 mg/dL (70-99) Calcium Level 8.4 mg/dL (8.5-10.1) Phosphorus Level 3.0 mg/dL (2.6-4.7) Magnesium Level 2.0 mg/dL (1.8-2.4) Triglycerides Level 351 mg/dL (0-150) Test 10/02/16 11:11 10/02/16 16:35 10/02/16 20:40 10/03/16 05:40 Glucose (Fingerstick) 271 mg/dL (70-99) 205 mg/dL (70-99) 204 mg/dL (70-99) Sodium Level 133 mmol/L (136-145) Potassium Level 4.1 mmol/L (3.5-5.1) Chloride Level 98 mmol/L (98-107) Carbon Dioxide Level 27 mmol/L (21-32) Anion Gap 8 (6-14) Blood Urea Nitrogen 11 mg/dL (7-20) Creatinine 0.7 mg/dL (0.6-1.0) Estimated GFR (Cockcroft-Gault) 98.7 Glucose Level 244 mg/dL (70-99) Calcium Level 8.2 mg/dL (8.5-10.1) Phosphorus Level 3.0 mg/dL (2.6-4.7) Magnesium Level 1.9 mg/dL (1.8-2.4) Test 10/03/16 07:41 Glucose (Fingerstick) 284 mg/dL (70-99) Laboratory Tests Test 10/02/16 11:11 10/02/16 16:35 10/02/16 20:40 10/03/16 05:40 Glucose (Fingerstick) 271 mg/dL (70-99) 205 mg/dL (70-99) 204 mg/dL (70-99) Sodium Level 133 mmol/L (136-145) Potassium Level 4.1 mmol/L (3.5-5.1) Chloride Level 98 mmol/L (98-107) Carbon Dioxide Level 27 mmol/L (21-32) Anion Gap 8 (6-14) Blood Urea Nitrogen 11 mg/dL (7-20) Creatinine 0.7 mg/dL (0.6-1.0) Estimated GFR (Cockcroft-Gault) 98.7 Glucose Level 244 mg/dL (70-99) Calcium Level 8.2 mg/dL (8.5-10.1) Phosphorus Level 3.0 mg/dL (2.6-4.7) Magnesium Level 1.9 mg/dL (1.8-2.4) Test 10/03/16 07:41 Glucose (Fingerstick) 284 mg/dL (70-99) Problem List Problems Medical Problems: (1) Abdominal pain Status: Acute (2) Nausea and vomiting Status: Acute Assessment/Plan s/p xlap cont g-tube to dependent drainage ADAT Problems: MALATHI FREITAS MD Oct 03, 2016 09:51
[2016-10-03 11:11] VITALS: BP 135/91
--- NOTE | 2016-10-03 12:34 | PDOC ---
PROGRESS NOTES Chief Complaint Chief Complaint Abdominal pain, recurrent SBO ASSESSMENT AND PLAN: 1. 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 Pain control: Dilaudid [employer], 3. Nutrition: on PPN for now. 4. HTN/HLD: well controlled; hydralazine IV PRN 5. CAD: hx CABG. stable 6. DM2: sl worse since surgery. monitor with ISS 7. Hypokalemia/hyperkalemia 8. 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, gi ppx change to high dose SSI, add levemir 10u qhs talked to onco, pt will fu with her own onco in after DC for chemo talked to pt about plan, pt has limited understanding, PAT consulted pt has very low appetite,add TPN, nutrition consult, encourage to eat SW for SNF CONSULT, cont supportive care, hope cont increase po intake and then can dc TPN, hope dc on Thursday to SNF History of Present Illness History of Present Illness ROS: no fever, chills, sob or chest pain has flatus, 1 time BM 09/30, 10/01 abd pain better, 5/10 , dced [employer] 10/02 low na still, better high K better low po intake, better 10/03, on TPN 10/01 hyperglycemia with TPN Vitals Vitals Vital Signs Date Time Temp Pulse Resp B/P (MAP) Pulse Ox O2 Delivery O2 Flow Rate FiO2 10/03/16 11:11 99.1 86 16 135/91 (106) 97 Nasal Cannula 2.0 99.1 Physical Exam General: Alert, Cooperative, No acute distress Heart: Normal S1, Normal S2 Lungs: Clear, Other (no r/r/w) Abdomen: Soft, No tenderness, Other (G-tube in place, abd INCISION has some dischareg, with a reba tube) Extremities: No edema Skin: No rashes, No breakdown Labs LABS Laboratory Tests Test 10/02/16 16:35 10/02/16 20:40 10/03/16 05:40 10/03/16 07:41 Glucose (Fingerstick) 205 mg/dL (70-99) 204 mg/dL (70-99) 284 mg/dL (70-99) Sodium Level 133 mmol/L (136-145) Potassium Level 4.1 mmol/L (3.5-5.1) Chloride Level 98 mmol/L (98-107) Carbon Dioxide Level 27 mmol/L (21-32) Anion Gap 8 (6-14) Blood Urea Nitrogen 11 mg/dL (7-20) Creatinine 0.7 mg/dL (0.6-1.0) Estimated GFR (Cockcroft-Gault) 98.7 Glucose Level 244 mg/dL (70-99) Calcium Level 8.2 mg/dL (8.5-10.1) Phosphorus Level 3.0 mg/dL (2.6-4.7) Magnesium Level 1.9 mg/dL (1.8-2.4) Test 10/03/16 11:38 Glucose (Fingerstick) 293 mg/dL (70-99) Assessment and Plan Assessmemt and Plan Problems Medical Problems: (1) Abdominal pain Status: Acute (2) Nausea and vomiting Status: Acute Problems: Comment Review of Relevant I have reviewed the following items anita (where applicable) has been applied. Labs Laboratory Tests Test 10/02/16 06:00 10/02/16 06:01 10/02/16 07:09 10/02/16 11:11 Sodium Level 129 mmol/L (136-145) Potassium Level 3.9 mmol/L (3.5-5.1) Chloride Level 95 mmol/L (98-107) Carbon Dioxide Level 28 mmol/L (21-32) Anion Gap 6 (6-14) Blood Urea Nitrogen 12 mg/dL (7-20) Creatinine 0.7 mg/dL (0.6-1.0) Estimated GFR (Cockcroft-Gault) 98.7 Glucose Level 259 mg/dL (70-99) Calcium Level 8.4 mg/dL (8.5-10.1) Phosphorus Level 3.0 mg/dL (2.6-4.7) Magnesium Level 2.0 mg/dL (1.8-2.4) Triglycerides Level 351 mg/dL (0-150) Glucose (Fingerstick) 235 mg/dL (70-99) 218 mg/dL (70-99) 271 mg/dL (70-99) Test 10/02/16 16:35 10/02/16 20:40 10/03/16 05:40 10/03/16 07:41 Glucose (Fingerstick) 205 mg/dL (70-99) 204 mg/dL (70-99) 284 mg/dL (70-99) Sodium Level 133 mmol/L (136-145) Potassium Level 4.1 mmol/L (3.5-5.1) Chloride Level 98 mmol/L (98-107) Carbon Dioxide Level 27 mmol/L (21-32) Anion Gap 8 (6-14) Blood Urea Nitrogen 11 mg/dL (7-20) Creatinine 0.7 mg/dL (0.6-1.0) Estimated GFR (Cockcroft-Gault) 98.7 Glucose Level 244 mg/dL (70-99) Calcium Level 8.2 mg/dL (8.5-10.1) Phosphorus Level 3.0 mg/dL (2.6-4.7) Magnesium Level 1.9 mg/dL (1.8-2.4) Test 10/03/16 11:38 Glucose (Fingerstick) 293 mg/dL (70-99) Laboratory Tests Test 10/02/16 16:35 10/02/16 20:40 10/03/16 05:40 10/03/16 07:41 Glucose (Fingerstick) 205 mg/dL (70-99) 204 mg/dL (70-99) 284 mg/dL (70-99) Sodium Level 133 mmol/L (136-145) Potassium Level 4.1 mmol/L (3.5-5.1) Chloride Level 98 mmol/L (98-107) Carbon Dioxide Level 27 mmol/L (21-32) Anion Gap 8 (6-14) Blood Urea Nitrogen 11 mg/dL (7-20) Creatinine 0.7 mg/dL (0.6-1.0) Estimated GFR (Cockcroft-Gault) 98.7 Glucose Level 244 mg/dL (70-99) Calcium Level 8.2 mg/dL (8.5-10.1) Phosphorus Level 3.0 mg/dL (2.6-4.7) Magnesium Level 1.9 mg/dL (1.8-2.4) Test 10/03/16 11:38 Glucose (Fingerstick) 293 mg/dL (70-99) Medications Current Medications Ondansetron HCl (Zofran) 4 mg PRN Q8HRS PRN IV NAUSEA/VOMITING Last administered on 09/19/16 02:59; Start 09/18/16 at 22:45; Stop 09/19/16 at 22:44 ; Status DC Fentanyl Citrate (Fentanyl 2ml Vial) 50 mcg PRN Q2HR PRN IV PAIN Last administered on 09/19/16 08:14; Start 09/18/16 at 22:45; Stop 09/19/16 at 22:44 ; Status DC Sodium Chloride 1,000 ml @ 125 mls/hr Q8H IV Last administered on 09/19/16 11 :01; Start 09/18/16 at 22:45; Stop 09/19/16 at 22:44; Status DC Hydralazine HCl (Apresoline) 10 mg PRN Q4HRS PRN IVP ELEVATED BP, SEE COMMENTS Last administered on 09/19/16 01:55; Start 09/19/16 at 01:45; Stop 09/19/16 at 12:24; Status DC Potassium Chloride 30 meq/ Sodium Chloride 1,015 ml @ 125 mls/hr 1X ONCE IV Last administered on 09/19/16 03:07; Start 09/19/16 at 01:45; Stop 09/19/16 at 09:52; Status DC Al Hydroxide/Mg Hydroxide (Mylanta Plus Xs) 15 ml 1X ONCE PO Last administered on 09/19/16 05:50; Start 09/19/16 at 06:00; Stop 09/19/16 at 06:01 ; Status DC Famotidine (Pepcid) 20 mg BID IVP Last administered on 09/24/16 09:01; Start 09/19/16 at 09:00; Stop 09/24/16 at 13:12; Status DC Acetaminophen (Tylenol) 650 mg PRN Q6HRS PRN PO FEVER Last administered on 09/25 08:43; Start 09/19/16 at 09:30; Stop 09/26/16 at 14:20; Status DC Ondansetron HCl (Zofran) 4 mg PRN Q6HRS PRN IV NAUSEA/VOMITING Last administered on 09/25/16 05:35; Start 09/19/16 at 09:30; Stop 09/27/16 at 12:26 ; Status DC Morphine Sulfate 2 mg PRN Q2HR PRN IV PAIN; Start 09/19/16 at 09:30; Stop 09/19 at 09:56; Status DC Tramadol HCl (Ultram) 50 mg PRN Q6HRS PRN PO PAIN Last administered on 09:49; Start 09/19/16 at 09:30; Stop 09/26/16 at 14:20; Status DC Hydralazine HCl (Apresoline) 10 mg PRN Q4HRS PRN IVP ELEVATED BP, SEE COMMENTS Last administered on 09/25/16 17:24; Start 09/19/16 at 09:30 Docusate Sodium (Colace) 100 mg PRN DAILY PRN PO CONSTIPATION Last administered on 09/25/16 08:43; Start 09/19/16 at 09:30; Stop 09/26/16 at 14:20 ; Status DC Barium Sulfate (Liquid E-Z Paque) 355 ml 1X ONCE PO ; Start 09/19/16 at 10:00; Stop 09/19/16 at 10:01; Status DC Barium Sulfate (Liquid E-Z Paque) 355 ml 1X ONCE PO ; Start 09/19/16 at 10:00; Stop 09/19/16 at 10:01; Status DC Morphine Sulfate 2 mg PRN Q2HR PRN IV PAIN Last administered on 09/24/16 09:09 ; Start 09/19/16 at 10:00; Stop 09/24/16 at 13:12; Status DC Throat Lozenges (Chloraseptic) 1 spray PRN Q2HR PRN PO SORE THROAT Last administered on 09/19/16 11:01; Start 09/19/16 at 10:15 Potassium Chloride/Sodium Chloride 1,000 ml @ 100 mls/hr Q10H IV Last administered on 09/20/16 01:57; Start 09/19/16 at 12:30; Stop 09/20/16 at 08:19 ; Status DC Heparin Sodium (Porcine) (Heparin Sq) 5,000 unit Q8HRS SQ Last administered on 10/03/16 06:12; Start 09/19/16 at 14:00 Amino Acids/ Glycerin/ Electrolytes 1,000 ml @ 75 mls/hr [id number] IV Last administered on 10/01/16 11:10; Start 09/20/16 at 08:30; Stop 10/01/16 at 21:59 ; Status DC Dextrose (Dextrose 50%-Water Syringe) 25 gm PRN Q15MIN PRN IV SEE COMMENTS Last administered on 09/20/16 11:52; Start 09/20/16 at 11:45; Stop 09/29/16 at 13:46; Status DC Iohexol (Omnipaque 350 Mg/ml) 400 ml 1X ONCE PO Last administered on 12:37; Start 09/20/16 at 12:15; Stop 09/20/16 at 12:16; Status DC Levofloxacin/ Dextrose 100 ml @ 100 mls/hr 1X PREOP PRN IV PRIOR TO PROCEDURE ; Start 09/21/16 at 17:30; Stop 09/22/16 at 18:00; Status DC Ondansetron HCl (Zofran) 4 mg PRN Q6HRS PRN IV NAUSEA/VOMITING; Start 09/22/16 at 07:45; Stop 09/23/16 at 07:44; Status DC Fentanyl Citrate (Fentanyl 2ml Vial) 25 mcg PRN Q5MIN PRN IV MILD PAIN; Start 09/22/16 at 07:45; Stop 09/23/16 at 07:44; Status DC Fentanyl Citrate (Fentanyl 2ml Vial) 50 mcg PRN Q5MIN PRN IV MODERATE PAIN; Start 09/22/16 at 07:45; Stop 09/23/16 at 07:44; Status DC Morphine Sulfate 1 mg PRN Q10MIN PRN IV SEVERE PAIN; Start 09/22/16 at 07:45; Stop 09/23/16 at 07:44; Status DC Ringer's Solution 1,000 ml @ 30 mls/hr Q24H IV ; Start 09/22/16 at 07:45; Stop 09/22/16 at 19:44; Status DC Lidocaine HCl 2 ml PRN 1X PRN ID PRIOR TO IV START; Start 09/22/16 at 07:45; Stop 09/23/16 at 07:44; Status DC Hydromorphone HCl (Dilaudid) 0.5 mg PRN Q10MIN PRN IV SEV PAIN, Second choice; Start 09/22/16 at 07:45; Stop 09/23/16 at 07:44; Status DC Prochlorperazine Edisylate (Compazine) 5 mg PACU PRN PRN IV NAUSEA, MRX1; Start 09/22/16 at 07:45; Stop 09/23/16 at 07:44; Status DC Lorazepam (Ativan) 0.5 mg 1X ONCE IV Last administered on 09/22/16 12:08; Start 09/22/16 at 12:00; Stop 09/22/16 at 12:03; Status DC Pantoprazole Sodium (Protonix) 40 mg DAILYAC PO Last administered on 09/25/16 08:43; Start 09/24/16 at 13:15; Stop 09/26/16 at 14:20; Status DC Levofloxacin/ Dextrose 100 ml @ 100 mls/hr 1X PREOP ONCE IV Last administered on 09/25/16 13:32; Start 09/25/16 at 13:30; Stop 09/25/16 at 14:29 ; Status DC Sevoflurane (Ultane) 60 ml STK-MED ONCE IH ; Start 09/25/16 at 13:40; Stop 09/25 at 13:53; Status DC Fentanyl Citrate (Fentanyl 2ml Vial) 100 mcg STK-MED ONCE .ROUTE ; Start at 13:41; Stop 09/25/16 at 13:53; Status DC Glycopyrrolate (Robinul) 1 mg STK-MED ONCE .ROUTE ; Start 09/25/16 at 13:41; Stop 09/25/16 at 13:53; Status DC Propofol 20 ml @ As Directed STK-MED ONCE IV ; Start 09/25/16 at 13:41; Stop at 13:53; Status DC Ondansetron HCl (Zofran) 4 mg STK-MED ONCE .ROUTE ; Start 09/25/16 at 13:42; Stop 09/25/16 at 13:53; Status DC Dexamethasone Sodium Phosphate (Decadron) 20 mg STK-MED ONCE .ROUTE ; Start at 13:42; Stop 09/25/16 at 13:53; Status DC Lidocaine HCl (Lidocaine Pf 2% Vial) 5 ml STK-MED ONCE .ROUTE ; Start 09/25/16 at 13:42; Stop 09/25/16 at 13:53; Status DC Ondansetron HCl (Zofran) 4 mg PRN Q6HRS PRN IV NAUSEA/VOMITING; Start 09/25/16 at 14:00; Stop 09/26/16 at 13:59; Status DC Fentanyl Citrate (Fentanyl 2ml Vial) 25 mcg PRN Q5MIN PRN IV MILD PAIN; Start 09/25/16 at 14:00; Stop 09/26/16 at 13:59; Status DC Fentanyl Citrate (Fentanyl 2ml Vial) 50 mcg PRN Q5MIN PRN IV MODERATE PAIN Last administered on 09/25/16t 17:31; Start 09/25/16 at 14:00; Stop 09/26/16 at 13:59; Status DC Morphine Sulfate 1 mg PRN Q10MIN PRN IV SEVERE PAIN; Start 09/25/16 at 14:00; Stop 09/26/16 at 13:59; Status DC Ringer's Solution 1,000 ml @ 0 mls/hr Q0M IV ; Start 09/25/16 at 13:53; Stop at 01:52; Status DC Lidocaine HCl 2 ml PRN 1X PRN ID PRIOR TO IV START; Start 09/25/16 at 14:00; Stop 09/26/16 at 13:59; Status DC Hydromorphone HCl (Dilaudid) 0.5 mg PRN Q10MIN PRN IV SEV PAIN, Second choice; Start 09/25/16 at 14:00; Stop 09/26/16 at 13:59; Status DC Prochlorperazine Edisylate (Compazine) 5 mg PACU PRN PRN IV NAUSEA, MRX1; Start 09/25/16 at 14:00; Stop 09/26/16 at 13:59; Status DC Fentanyl Citrate (Fentanyl 2ml Vial) 100 mcg STK-MED ONCE .ROUTE ; Start at 14:08; Stop 09/25/16 at 14:09; Status DC Ringer's Solution 1,000 ml @ 125 mls/hr Q8H IV ; Start 09/25/16 at 14:09; Stop 09/26/16 at 02:08; Status DC Fentanyl Citrate (Fentanyl 2ml Vial) 50 mcg PRN Q5MIN PRN IV pain Last administered on 09/25/16 14:15; Start 09/25/16 at 14:15; Stop 09/26/16 at 14:20 ; Status DC Succinylcholine Chloride (Anectine) 200 mg STK-MED ONCE .ROUTE ; Start 09/25/16 at 14:20; Stop 09/25/16 at 14:21; Status DC Fentanyl Citrate (Fentanyl 2ml Vial) 100 mcg STK-MED ONCE .ROUTE ; Start at 14:54; Stop 09/25/16 at 14:55; Status DC Enoxaparin Sodium (Lovenox 40mg Syringe) 40 mg Q24H SQ ; Start 09/25/16 at 18:00 ; Stop 09/26/16 at 11:03; Status DC Sodium Chloride (Normal Saline Flush) 3 ml QSHIFT PRN IV AFTER MEDS AND BLOOD DRAWS; Start 09/25/16 at 16:30 Ringer's Solution 1,000 ml @ 100 mls/hr Q10H IV ; Start 09/25/16 at 16:25; Stop 09/25/16 at 23:51; Status DC Naloxone HCl (Narcan) 0.4 mg PRN Q2MIN PRN IV SEE INSTRUCTIONS; Start 09/25/16 at 16:30 Sodium Chloride 1,000 ml @ 25 mls/hr Q24H IV Last administered on 10/02/16 15 :11; Start 09/25/16 at 16:25 Hydromorphone HCl 30 ml @ 0 mls/hr CONT PRN PRN IV PROTOCOL Last administered on 09/30/16 05:32; Start 09/25/16 at 16:30; Stop 10/02/16 at 12:29; Status DC Ondansetron HCl (Zofran) 4 mg PRN Q6HRS PRN IV NAUESA, 1ST CHOICE Last administered on 09/28/16 07:20; Start 09/25/16 at 16:30 Fentanyl Citrate (Fentanyl 2ml Vial) 100 mcg STK-MED ONCE .ROUTE ; Start at 17:14; Stop 09/25/16 at 17:15; Status DC Acetaminophen (Tylenol) 325 mg PRN Q6HRS PRN AL fever >100.4 Last administered on 10/02/16 15:22; Start 09/26/16 at 14:30 Bisacodyl (Dulcolax Supp) 10 mg PRN DAILY PRN AL CONSTIPATION Last administered on 09/30/16 20:16; Start 09/26/16 at 14:30 Famotidine (Pepcid) 20 mg BID IVP Last administered on 10/03/16 09:00; Start 09/26/16 at 21:00 Insulin Aspart (NovoLOG) 0-5 UNITS TIDWMEALS SQ Last administered on 09/29/16 12:19; Start 09/26/16 at 17:00; Stop 10/02/16 at 12:29; Status DC Dextrose (Dextrose 50%-Water Syringe) 12.5 gm PRN Q15MIN PRN IV SEE COMMENTS; Start 09/26/16 at 15:00; Status Cancel Saliva Substitute (Biotene Moisturizing Mouth) 2 spray PRN Q15MIN PRN PO DRY MOUTH Last administered on 09/28/16 22:06; Start 09/28/16 at 14:00 Sodium Chloride 1,000 ml @ 75 mls/hr 1X ONCE IV Last administered on 14:45; Start 09/29/16 at 14:45; Stop 09/30/16 at 04:04; Status DC Artificial Tears (Artificial Tears) 1 drop PRN Q15MIN PRN OU DRY EYE Last administered on 10/01/16 23:08; Start 10/01/16 at 10:30 Info 1 each PRN DAILY PRN MC SEE COMMENTS Last administered on 10/02/16 14:38 ; Start 10/01/16 at 12:45 Sodium Chloride 90 meq/Potassium Chloride 50 meq/ Potassium Phosphate 13.6 mmol/ Magnesium Sulfate 10 meq/ Calcium Gluconate 10 meq/ Multivitamins 10 ml/Chromium / Copper/Manganese/ Seleni/Zn 1 ml/ Total Parenteral Nutrition/Amino Acids/ Dextrose/ Fat Emulsion Intravenous 1,200 ml @ 50 mls/hr TPN CONT IV Last administered on 10/01/16 23:12; Start 10/01/16 at 22:00; Stop 10/02/16 at 21:59 ; Status DC Sodium Phosphate 15 mmol/Dextrose 255 ml @ 63.75 mls/ hr 1X ONCE IV Last administered on 10/01/16 17:30; Start 10/01/16 at 17:30; Stop 10/01/16 at 21:29 ; Status DC Aspirin (Ecotrin) 81 mg DAILY PO Last administered on 10/03/16 08:59; Start at 13:00 Atorvastatin Calcium (Lipitor) 20 mg HS PO Last administered on 10/02/16 22:08 ; Start 10/02/16 at 21:00 Buspirone HCl (Buspar) 10 mg BID PO Last administered on 10/03/16 08:59; Start 10/02/16 at 13:00 Senna/Docusate Sodium (Senna Plus) 1 tab DAILY PO Last administered on 09:00; Start 10/02/16 at 13:00 Citalopram Hydrobromide (CeleXA) 40 mg DAILY PO Last administered on 10/03/16 08:59; Start 10/03/16 at 09:00 Pregabalin (Lyrica) 150 mg BID PO Last administered on 10/03/16 09:00; Start 10/02/16 at 13:00 Morphine Sulfate 2 mg PRN Q2HR PRN IV PAIN; Start 10/02/16 at 12:30 Morphine Sulfate 4 mg PRN Q2HR PRN IV PAIN; Start 10/02/16 at 12:30 Tramadol HCl (Ultram) 50 mg PRN Q6HRS PRN PO PAIN; Start 10/02/16 at 12:30 Acetaminophen/ Hydrocodone Bitart (Lortab 5/325) 1 tab PRN Q4HRS PRN PO PAIN Last administered on 10/03/16 09:00; Start 10/02/16 at 12:30 Insulin Aspart (NovoLOG) 0-9 UNITS TIDWMEALS SQ Last administered on 10/03/16 09:12; Start 10/02/16 at 13:00 Dextrose (Dextrose 50%-Water Syringe) 12.5 gm PRN Q15MIN PRN IV SEE COMMENTS; Start 10/02/16 at 12:30 Sodium Chloride 90 meq/Potassium Chloride 50 meq/ Potassium Phosphate 13.6 mmol/ Magnesium Sulfate 10 meq/ Calcium Gluconate 10 meq/ Multivitamins 10 ml/Chromium / Copper/Manganese/ Seleni/Zn 1 ml/ Total Parenteral Nutrition/Amino Acids/ Dextrose/ Fat Emulsion Intravenous 1,200 ml @ 50 mls/hr TPN CONT IV Last administered on 10/02/16t 23:55; Start 10/02/16 at 22:00; Stop 10/03/16 at 21:59 Active Scripts Active Senna S Tablet (Sennosides/Docusate Sodium) 1 Each Tablet 1 Each PO DAILY Reported Lexapro (Escitalopram Oxalate) 20 Mg Tablet 1 Tab PO DAILY Lisinopril-Hctz 20-12.5 Mg Tab (Lisinopril/Hydrochlorothiazide) 1 Each Tablet 1 Tab PO DAILY Lipitor (Atorvastatin Calcium) 20 Mg Tablet 20 Mg PO HS Ambien (Zolpidem Tartrate) 5 Mg Tablet 1 Tab PO QHS Lyrica (Pregabalin) 150 Mg Capsule 150 Mg PO BID 30 Days Buspirone Hcl 10 Mg Tablet 10 Mg PO BID Aspir 81 (Aspirin) 81 Mg Tablet. 1 Tab PO DAILY Vitals/I & O Vital Sign - Last 24 Hours 10/02/16 10/02/16 10/02/16 10/02/16 14:48 18:27 19:00 20:00 Temp 98.3 98.1 98.3 98.1 Pulse 88 85 Resp 17 16 B/P (MAP) 138/44 (75) 101/54 (70) Pulse Ox 100 100 O2 Delivery Nasal Cannula Room Air Nasal Cannula Nasal Cannula O2 Flow Rate 4.0 4.0 4.0 10/02/16 10/03/16 10/03/16 10/03/16 23:00 02:45 07:15 08:00 Temp 98.8 98.1 98.0 98.8 98.1 98.0 Pulse 79 84 84 Resp 16 16 18 B/P (MAP) 124/54 (77) 130/55 (80) 123/46 (71) Pulse Ox 100 98 98 O2 Delivery Nasal Cannula Nasal Cannula Nasal Cannula Nasal Cannula O2 Flow Rate 4.0 2.0 2.0 3.0 10/03/16 10/03/16 10/03/16 09:00 10:29 11:11 Temp 99.1 99.1 Pulse 86 Resp 16 B/P (MAP) 135/91 (106) Pulse Ox 98 98 97 O2 Delivery Nasal Cannula Nasal Cannula Nasal Cannula O2 Flow Rate 2.0 2.0 2.0 Intake and Output 10/02/16 10/02/16 10/03/16 15:00 23:00 07:00 Intake Total 300 ml 50 ml Output Total 200 ml 300 ml Balance 100 ml -250 ml SELVIN PIMENTEL MD Oct 03, 2016 12:34
[2016-10-03] MEDS: TPN PER PHARMACY MC PRN (13:11)
--- NOTE | 2016-10-03 14:00 | PDOC ---
Subjective: Subjective: Some abd pain, trying to relax. Ate "what I could." Objective: Objective: Reviewed other notes, d/w RN this morning. Vital Signs: Vital Signs Date Time Temp Pulse Resp B/P (MAP) Pulse Ox O2 Delivery O2 Flow Rate FiO2 10/03/16 13:26 97 Nasal Cannula 2.0 10/03/16 11:11 99.1 86 16 135/91 (106) 99.1 Labs: Laboratory Tests Test 10/02/16 16:35 10/02/16 20:40 10/03/16 07:41 10/03/16 11:38 Glucose (Fingerstick) 205 mg/dL (70-99) 204 mg/dL (70-99) 284 mg/dL (70-99) 293 mg/dL (70-99) PE: GEN: NAD LUNGS: clear HEART: RRR ABD: BS quiet, G tube NEURO/PSYCH: probably a little confused A/P: Malignant SBO/metastatic malignancy s/p expl lap -some PO intake, also has TPN -- DC planning in process. EDMOND BAIRD Oct 03, 2016 14:00
[2016-10-03 15:11] VITALS: BP 128/59
[2016-10-03] MEDS ORDERED: MORPHINE SULFATE 2 MG/ML DISP.SYRIN. IV PRN (15:21)
[2016-10-03] MEDS: IV NORMAL SALINE 1000ML BAG 1,000 ML IV SCH (16:25)
[2016-10-03 19:00] VITALS: BP_SYST 150; BP_SYST 93; BP_DIAS 46; BP_DIAS 76
[2016-10-03] MEDS: ATORVASTATIN CALCIUM 20 MG TABLET PO SCH (21:42)
[2016-10-03] MEDS: INSULIN DETEMIR 300 UNITS/3 ML INSULN.PEN. SQ SCH (21:43)
[2016-10-03] MEDS ORDERED: AMINO ACIDS IV SCH ×10 (22:00)
[2016-10-03] MEDS ORDERED: [UNRECOGNIZED DRUG - OTHER] IV SCH ×10 (22:00)
[2016-10-03] MEDS ORDERED: DEXTROSE 70% IV SCH ×10 (22:00)
[2016-10-03] MEDS ORDERED: TOTAL PARENTERAL NUTRITION IV SCH ×10 (22:00)
[2016-10-03 23:00] VITALS: BP 140/54
[2016-10-03] MEDS: ACETAMINOPHEN 325 MG SUPP.RECT. PR PRN (23:26)
[2016-10-04 03:00] VITALS: BP 128/63
[2016-10-04] MEDS: HYDROcodone/APAP 5/325MG 1 TAB TABLET PO PRN (03:24)
[2016-10-04 04:48] LABS: BASO % 1 % (0-3); EOS % 0 % (0-3); HEMATOCRIT 24.4 % (36.0-47.0); HEMOGLOBIN 8.5 g/dL (12.0-15.5); LYMPH # 1.1 x10^3/uL (1.0-4.8); LYMPH % 11 % (24-48); MEAN CORPUSCULAR HEMOGLOBIN 32 pg (25-35); MEAN CORPUSCULAR HGB CONC 35 g/dL (31-37); MEAN CORPUSCULAR VOLUME 92 fL (79-100); MONO % 12 % (0-9); NEUT % 76 % (31-73); PLATELET COUNT 192 x10^3/uL (140-400); RED BLOOD COUNT 2.66 x10^6/uL (3.50-5.40); RED CELL DISTRIBUTION WIDTH 15.1 % (11.5-14.5); WHITE BLOOD COUNT 10.5 x10^3/uL (4.0-11.0)
[2016-10-04 04:51] LABS: CALCIUM 8.2 mg/dL (8.5-10.1); CREATININE 0.8 mg/dL (0.6-1.0); GFR 84.6; PHOSPHORUS 3.1 mg/dL (2.6-4.7); POTASSIUM 4.5 mmol/L (3.5-5.1)
[2016-10-04] MEDS: HEPARIN PF for SUB-Q USE 5,000 UNIT/0.5 ML VIAL. SQ SCH ×3 (06:35→21:51)
[2016-10-04 07:09] VITALS: BP 111/70
[2016-10-04] MEDS: SENNOSIDES/DOCUSATE 8.6/50MG TABLET. PO SCH (08:47)
[2016-10-04] MEDS: ASPIRIN ENTERIC COATED 81 MG TABLET.DR. PO SCH (08:47)
[2016-10-04] MEDS: PREGABALIN 75 MG CAPSULE PO SCH ×2 (08:47→21:00)
[2016-10-04] MEDS: busPIRone 10 MG TABLET. PO SCH ×2 (08:47→21:01)
[2016-10-04] MEDS: CITALOPRAM 20 MG TABLET. PO SCH (08:47)
[2016-10-04] MEDS: FAMOTIDINE 20 MG/2 ML VIAL IVP SCH ×2 (08:52→21:01)
[2016-10-04] MEDS: INSULIN ASPART 300 UNITS/3 ML INSULN.PEN SQ SCH ×3 (08:56→17:16)
[2016-10-04] MEDS: MORPHINE SULFATE 4 MG/ML DISP.SYRIN. IV PRN ×2 (09:19→13:13)
[2016-10-04 11:01] VITALS: BP 107/59
--- NOTE | 2016-10-04 11:59 | PDOC ---
PROGRESS NOTES Chief Complaint Chief Complaint Abdominal pain, recurrent SBO ASSESSMENT AND PLAN: 1. 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 Pain control: Dilaudid HARNESS BRUSHER, 3. Nutrition: on PPN for now. 4. HTN/HLD: well controlled; hydralazine IV PRN 5. CAD: hx CABG. stable 6. DM2: sl worse since surgery. monitor with ISS 7. Hypokalemia/hyperkalemia 8. Hyponatremia, resolved wheelchair bound History of Present Illness History of Present Illness Medically ready for SNU [facility] has accepted at has arranged this prior to the weekend, BUt now family tells me they want SNU in [facility] so that closer to their home Patient herself is ok to go to [facility] Theres is a DPOA, some family issues re DPOA PLAN: Douglas ELLER over , will look into [facility] SNU on Thursday as per family request Douglas RN, multiple visits with family members Cont tpn SIgnif time Vitals Vitals Vital Signs Date Time Temp Pulse Resp B/P (MAP) Pulse Ox O2 Delivery O2 Flow Rate FiO2 10/04/16 11:01 98.8 83 24 107/59 (75) 100 Nasal Cannula 2.5 98.8 Physical Exam General: Alert, Cooperative, No acute distress Heart: Normal S1, Normal S2 Lungs: Clear, Other (no r/r/w) Abdomen: Soft, No tenderness, Other (G-tube in place, abd INCISION has some dischareg, with a reba tube) Extremities: No edema Skin: No rashes, No breakdown Labs LABS Laboratory Tests Test 10/03/16 17:06 10/03/16 21:06 10/04/16 04:30 10/04/16 07:11 Glucose (Fingerstick) 259 mg/dL (70-99) 201 mg/dL (70-99) 288 mg/dL (70-99) White Blood Count 10.5 x10^3/uL (4.0-11.0) Red Blood Count 2.66 x10^6/uL (3.50-5.40) Hemoglobin 8.5 g/dL (12.0-15.5) Hematocrit 24.4 % (36.0-47.0) Mean Corpuscular Volume 92 fL (79-100) Mean Corpuscular Hemoglobin 32 pg (25-35) Mean Corpuscular Hemoglobin Concent 35 g/dL (31-37) Red Cell Distribution Width 15.1 % (11.5-14.5) Platelet Count 192 x10^3/uL (140-400) Neutrophils (%) (Auto) 76 % (31-73) Lymphocytes (%) (Auto) 11 % (24-48) Monocytes (%) (Auto) 12 % (0-9) Eosinophils (%) (Auto) 0 % (0-3) Basophils (%) (Auto) 1 % (0-3) Neutrophils # (Auto) 8.0 x10^3uL (1.8-7.7) Lymphocytes # (Auto) 1.1 x10^3/uL (1.0-4.8) Monocytes # (Auto) 1.3 x10^3/uL (0.0-1.1) Eosinophils # (Auto) 0.0 x10^3/uL (0.0-0.7) Basophils # (Auto) 0.0 x10^3/uL (0.0-0.2) Sodium Level 133 mmol/L (136-145) Potassium Level 4.5 mmol/L (3.5-5.1) Chloride Level 99 mmol/L (98-107) Carbon Dioxide Level 27 mmol/L (21-32) Anion Gap 7 (6-14) Blood Urea Nitrogen 13 mg/dL (7-20) Creatinine 0.8 mg/dL (0.6-1.0) Estimated GFR (Cockcroft-Gault) 84.6 Glucose Level 263 mg/dL (70-99) Calcium Level 8.2 mg/dL (8.5-10.1) Phosphorus Level 3.1 mg/dL (2.6-4.7) Magnesium Level 2.0 mg/dL (1.8-2.4) Test 10/04/16 11:02 Glucose (Fingerstick) 233 mg/dL (70-99) Review of Systems Review of Systems denies 14 pt Assessment and Plan Assessmemt and Plan Problems Medical Problems: (1) Abdominal pain Status: Acute (2) Nausea and vomiting Status: Acute Problems: Comment Review of Relevant I have reviewed the following items anita (where applicable) has been applied. Labs Laboratory Tests Test 10/02/16 16:35 10/02/16 20:40 10/03/16 05:40 10/03/16 07:41 Glucose (Fingerstick) 205 mg/dL (70-99) 204 mg/dL (70-99) 284 mg/dL (70-99) Sodium Level 133 mmol/L (136-145) Potassium Level 4.1 mmol/L (3.5-5.1) Chloride Level 98 mmol/L (98-107) Carbon Dioxide Level 27 mmol/L (21-32) Anion Gap 8 (6-14) Blood Urea Nitrogen 11 mg/dL (7-20) Creatinine 0.7 mg/dL (0.6-1.0) Estimated GFR (Cockcroft-Gault) 98.7 Glucose Level 244 mg/dL (70-99) Hemoglobin A1c 6.5 % (4.8-5.6) Calcium Level 8.2 mg/dL (8.5-10.1) Phosphorus Level 3.0 mg/dL (2.6-4.7) Magnesium Level 1.9 mg/dL (1.8-2.4) Test 10/03/16 11:38 10/03/16 17:06 10/03/16 21:06 10/04/16 04:30 Glucose (Fingerstick) 293 mg/dL (70-99) 259 mg/dL (70-99) 201 mg/dL (70-99) White Blood Count 10.5 x10^3/uL (4.0-11.0) Red Blood Count 2.66 x10^6/uL (3.50-5.40) Hemoglobin 8.5 g/dL (12.0-15.5) Hematocrit 24.4 % (36.0-47.0) Mean Corpuscular Volume 92 fL (79-100) Mean Corpuscular Hemoglobin 32 pg (25-35) Mean Corpuscular Hemoglobin Concent 35 g/dL (31-37) Red Cell Distribution Width 15.1 % (11.5-14.5) Platelet Count 192 x10^3/uL (140-400) Neutrophils (%) (Auto) 76 % (31-73) Lymphocytes (%) (Auto) 11 % (24-48) Monocytes (%) (Auto) 12 % (0-9) Eosinophils (%) (Auto) 0 % (0-3) Basophils (%) (Auto) 1 % (0-3) Neutrophils # (Auto) 8.0 x10^3uL (1.8-7.7) Lymphocytes # (Auto) 1.1 x10^3/uL (1.0-4.8) Monocytes # (Auto) 1.3 x10^3/uL (0.0-1.1) Eosinophils # (Auto) 0.0 x10^3/uL (0.0-0.7) Basophils # (Auto) 0.0 x10^3/uL (0.0-0.2) Sodium Level 133 mmol/L (136-145) Potassium Level 4.5 mmol/L (3.5-5.1) Chloride Level 99 mmol/L (98-107) Carbon Dioxide Level 27 mmol/L (21-32) Anion Gap 7 (6-14) Blood Urea Nitrogen 13 mg/dL (7-20) Creatinine 0.8 mg/dL (0.6-1.0) Estimated GFR (Cockcroft-Gault) 84.6 Glucose Level 263 mg/dL (70-99) Calcium Level 8.2 mg/dL (8.5-10.1) Phosphorus Level 3.1 mg/dL (2.6-4.7) Magnesium Level 2.0 mg/dL (1.8-2.4) Test 10/04/16 07:11 10/04/16 11:02 Glucose (Fingerstick) 288 mg/dL (70-99) 233 mg/dL (70-99) Laboratory Tests Test 10/03/16 17:06 10/03/16 21:06 10/04/16 04:30 10/04/16 07:11 Glucose (Fingerstick) 259 mg/dL (70-99) 201 mg/dL (70-99) 288 mg/dL (70-99) White Blood Count 10.5 x10^3/uL (4.0-11.0) Red Blood Count 2.66 x10^6/uL (3.50-5.40) Hemoglobin 8.5 g/dL (12.0-15.5) Hematocrit 24.4 % (36.0-47.0) Mean Corpuscular Volume 92 fL (79-100) Mean Corpuscular Hemoglobin 32 pg (25-35) Mean Corpuscular Hemoglobin Concent 35 g/dL (31-37) Red Cell Distribution Width 15.1 % (11.5-14.5) Platelet Count 192 x10^3/uL (140-400) Neutrophils (%) (Auto) 76 % (31-73) Lymphocytes (%) (Auto) 11 % (24-48) Monocytes (%) (Auto) 12 % (0-9) Eosinophils (%) (Auto) 0 % (0-3) Basophils (%) (Auto) 1 % (0-3) Neutrophils # (Auto) 8.0 x10^3uL (1.8-7.7) Lymphocytes # (Auto) 1.1 x10^3/uL (1.0-4.8) Monocytes # (Auto) 1.3 x10^3/uL (0.0-1.1) Eosinophils # (Auto) 0.0 x10^3/uL (0.0-0.7) Basophils # (Auto) 0.0 x10^3/uL (0.0-0.2) Sodium Level 133 mmol/L (136-145) Potassium Level 4.5 mmol/L (3.5-5.1) Chloride Level 99 mmol/L (98-107) Carbon Dioxide Level 27 mmol/L (21-32) Anion Gap 7 (6-14) Blood Urea Nitrogen 13 mg/dL (7-20) Creatinine 0.8 mg/dL (0.6-1.0) Estimated GFR (Cockcroft-Gault) 84.6 Glucose Level 263 mg/dL (70-99) Calcium Level 8.2 mg/dL (8.5-10.1) Phosphorus Level 3.1 mg/dL (2.6-4.7) Magnesium Level 2.0 mg/dL (1.8-2.4) Test 10/04/16 11:02 Glucose (Fingerstick) 233 mg/dL (70-99) Medications Current Medications Ondansetron HCl (Zofran) 4 mg PRN Q8HRS PRN IV NAUSEA/VOMITING Last administered on 09/19/16t 02:59; Start 09/18/16 at 22:45; Stop 09/19/16 at 22:44 ; Status DC Fentanyl Citrate (Fentanyl 2ml Vial) 50 mcg PRN Q2HR PRN IV PAIN Last administered on 09/19/16 08:14; Start 09/18/16 at 22:45; Stop 09/19/16 at 22:44 ; Status DC Sodium Chloride 1,000 ml @ 125 mls/hr Q8H IV Last administered on 09/19/16 11 :01; Start 09/18/16 at 22:45; Stop 09/19/16 at 22:44; Status DC Hydralazine HCl (Apresoline) 10 mg PRN Q4HRS PRN IVP ELEVATED BP, SEE COMMENTS Last administered on 09/19/16 01:55; Start 09/19/16 at 01:45; Stop 09/19/16 at 12:24; Status DC Potassium Chloride 30 meq/ Sodium Chloride 1,015 ml @ 125 mls/hr 1X ONCE IV Last administered on 09/19/16 03:07; Start 09/19/16 at 01:45; Stop 09/19/16 at 09:52; Status DC Al Hydroxide/Mg Hydroxide (Mylanta Plus Xs) 15 ml 1X ONCE PO Last administered on 09/19/16 05:50; Start 09/19/16 at 06:00; Stop 09/19/16 at 06:01 ; Status DC Famotidine (Pepcid) 20 mg BID IVP Last administered on 09/24/16 09:01; Start 09/19/16 at 09:00; Stop 09/24/16 at 13:12; Status DC Acetaminophen (Tylenol) 650 mg PRN Q6HRS PRN PO FEVER Last administered on 09/25 08:43; Start 09/19/16 at 09:30; Stop 09/26/16 at 14:20; Status DC Ondansetron HCl (Zofran) 4 mg PRN Q6HRS PRN IV NAUSEA/VOMITING Last administered on 09/25/16 05:35; Start 09/19/16 at 09:30; Stop 09/27/16 at 12:26 ; Status DC Morphine Sulfate 2 mg PRN Q2HR PRN IV PAIN; Start 09/19/16 at 09:30; Stop 09/19 at 09:56; Status DC Tramadol HCl (Ultram) 50 mg PRN Q6HRS PRN PO PAIN Last administered on 09:49; Start 09/19/16 at 09:30; Stop 09/26/16 at 14:20; Status DC Hydralazine HCl (Apresoline) 10 mg PRN Q4HRS PRN IVP ELEVATED BP, SEE COMMENTS Last administered on 09/25/16 17:24; Start 09/19/16 at 09:30 Docusate Sodium (Colace) 100 mg PRN DAILY PRN PO CONSTIPATION Last administered on 09/25/16 08:43; Start 09/19/16 at 09:30; Stop 09/26/16 at 14:20 ; Status DC Barium Sulfate (Liquid E-Z Paque) 355 ml 1X ONCE PO ; Start 09/19/16 at 10:00; Stop 09/19/16 at 10:01; Status DC Barium Sulfate (Liquid E-Z Paque) 355 ml 1X ONCE PO ; Start 09/19/16 at 10:00; Stop 09/19/16 at 10:01; Status DC Morphine Sulfate 2 mg PRN Q2HR PRN IV PAIN Last administered on 09/24/16 09:09 ; Start 09/19/16 at 10:00; Stop 09/24/16 at 13:12; Status DC Throat Lozenges (Chloraseptic) 1 spray PRN Q2HR PRN PO SORE THROAT Last administered on 09/19/16 11:01; Start 09/19/16 at 10:15 Potassium Chloride/Sodium Chloride 1,000 ml @ 100 mls/hr Q10H IV Last administered on 09/20/16 01:57; Start 09/19/16 at 12:30; Stop 09/20/16 at 08:19 ; Status DC Heparin Sodium (Porcine) (Heparin Sq) 5,000 unit Q8HRS SQ Last administered on 10/04/16 06:35; Start 09/19/16 at 14:00 Amino Acids/ Glycerin/ Electrolytes 1,000 ml @ 75 mls/hr [id number] IV Last administered on 10/01/16 11:10; Start 09/20/16 at 08:30; Stop 10/01/16 at 21:59 ; Status DC Dextrose (Dextrose 50%-Water Syringe) 25 gm PRN Q15MIN PRN IV SEE COMMENTS Last administered on 09/20/16t 11:52; Start 09/20/16 at 11:45; Stop 09/29/16 at 13:46; Status DC Iohexol (Omnipaque 350 Mg/ml) 400 ml 1X ONCE PO Last administered on t 12:37; Start 09/20/16 at 12:15; Stop 09/20/16 at 12:16; Status DC Levofloxacin/ Dextrose 100 ml @ 100 mls/hr 1X PREOP PRN IV PRIOR TO PROCEDURE ; Start 09/21/16 at 17:30; Stop 09/22/16 at 18:00; Status DC Ondansetron HCl (Zofran) 4 mg PRN Q6HRS PRN IV NAUSEA/VOMITING; Start 09/22/16 at 07:45; Stop 09/23/16 at 07:44; Status DC Fentanyl Citrate (Fentanyl 2ml Vial) 25 mcg PRN Q5MIN PRN IV MILD PAIN; Start 09/22/16 at 07:45; Stop 09/23/16 at 07:44; Status DC Fentanyl Citrate (Fentanyl 2ml Vial) 50 mcg PRN Q5MIN PRN IV MODERATE PAIN; Start 09/22/16 at 07:45; Stop 09/23/16 at 07:44; Status DC Morphine Sulfate 1 mg PRN Q10MIN PRN IV SEVERE PAIN; Start 09/22/16 at 07:45; Stop 09/23/16 at 07:44; Status DC Ringer's Solution 1,000 ml @ 30 mls/hr Q24H IV ; Start 09/22/16 at 07:45; Stop 09/22/16 at 19:44; Status DC Lidocaine HCl 2 ml PRN 1X PRN ID PRIOR TO IV START; Start 09/22/16 at 07:45; Stop 09/23/16 at 07:44; Status DC Hydromorphone HCl (Dilaudid) 0.5 mg PRN Q10MIN PRN IV SEV PAIN, Second choice; Start 09/22/16 at 07:45; Stop 09/23/16 at 07:44; Status DC Prochlorperazine Edisylate (Compazine) 5 mg PACU PRN PRN IV NAUSEA, MRX1; Start 09/22/16 at 07:45; Stop 09/23/16 at 07:44; Status DC Lorazepam (Ativan) 0.5 mg 1X ONCE IV Last administered on 09/22/16t 12:08; Start 09/22/16 at 12:00; Stop 09/22/16 at 12:03; Status DC Pantoprazole Sodium (Protonix) 40 mg DAILYAC PO Last administered on 09/25/16 08:43; Start 09/24/16 at 13:15; Stop 09/26/16 at 14:20; Status DC Levofloxacin/ Dextrose 100 ml @ 100 mls/hr 1X PREOP ONCE IV Last administered on 09/25/16 13:32; Start 09/25/16 at 13:30; Stop 09/25/16 at 14:29 ; Status DC Sevoflurane (Ultane) 60 ml STK-MED ONCE IH ; Start 09/25/16 at 13:40; Stop 09/25 at 13:53; Status DC Fentanyl Citrate (Fentanyl 2ml Vial) 100 mcg STK-MED ONCE .ROUTE ; Start at 13:41; Stop 09/25/16 at 13:53; Status DC Glycopyrrolate (Robinul) 1 mg STK-MED ONCE .ROUTE ; Start 09/25/16 at 13:41; Stop 09/25/16 at 13:53; Status DC Propofol 20 ml @ As Directed STK-MED ONCE IV ; Start 09/25/16 at 13:41; Stop at 13:53; Status DC Ondansetron HCl (Zofran) 4 mg STK-MED ONCE .ROUTE ; Start 09/25/16 at 13:42; Stop 09/25/16 at 13:53; Status DC Dexamethasone Sodium Phosphate (Decadron) 20 mg STK-MED ONCE .ROUTE ; Start at 13:42; Stop 09/25/16 at 13:53; Status DC Lidocaine HCl (Lidocaine Pf 2% Vial) 5 ml STK-MED ONCE .ROUTE ; Start 09/25/16 at 13:42; Stop 09/25/16 at 13:53; Status DC Ondansetron HCl (Zofran) 4 mg PRN Q6HRS PRN IV NAUSEA/VOMITING; Start 09/25/16 at 14:00; Stop 09/26/16 at 13:59; Status DC Fentanyl Citrate (Fentanyl 2ml Vial) 25 mcg PRN Q5MIN PRN IV MILD PAIN; Start 09/25/16 at 14:00; Stop 09/26/16 at 13:59; Status DC Fentanyl Citrate (Fentanyl 2ml Vial) 50 mcg PRN Q5MIN PRN IV MODERATE PAIN Last administered on 09/25/16t 17:31; Start 09/25/16 at 14:00; Stop 09/26/16 at 13:59; Status DC Morphine Sulfate 1 mg PRN Q10MIN PRN IV SEVERE PAIN; Start 09/25/16 at 14:00; Stop 09/26/16 at 13:59; Status DC Ringer's Solution 1,000 ml @ 0 mls/hr Q0M IV ; Start 09/25/16 at 13:53; Stop at 01:52; Status DC Lidocaine HCl 2 ml PRN 1X PRN ID PRIOR TO IV START; Start 09/25/16 at 14:00; Stop 09/26/16 at 13:59; Status DC Hydromorphone HCl (Dilaudid) 0.5 mg PRN Q10MIN PRN IV SEV PAIN, Second choice; Start 09/25/16 at 14:00; Stop 09/26/16 at 13:59; Status DC Prochlorperazine Edisylate (Compazine) 5 mg PACU PRN PRN IV NAUSEA, MRX1; Start 09/25/16 at 14:00; Stop 09/26/16 at 13:59; Status DC Fentanyl Citrate (Fentanyl 2ml Vial) 100 mcg STK-MED ONCE .ROUTE ; Start at 14:08; Stop 09/25/16 at 14:09; Status DC Ringer's Solution 1,000 ml @ 125 mls/hr Q8H IV ; Start 09/25/16 at 14:09; Stop 09/26/16 at 02:08; Status DC Fentanyl Citrate (Fentanyl 2ml Vial) 50 mcg PRN Q5MIN PRN IV pain Last administered on 09/25/16t 14:15; Start 09/25/16 at 14:15; Stop 09/26/16 at 14:20 ; Status DC Succinylcholine Chloride (Anectine) 200 mg STK-MED ONCE .ROUTE ; Start 09/25/16 at 14:20; Stop 09/25/16 at 14:21; Status DC Fentanyl Citrate (Fentanyl 2ml Vial) 100 mcg STK-MED ONCE .ROUTE ; Start at 14:54; Stop 09/25/16 at 14:55; Status DC Enoxaparin Sodium (Lovenox 40mg Syringe) 40 mg Q24H SQ ; Start 09/25/16 at 18:00 ; Stop 09/26/16 at 11:03; Status DC Sodium Chloride (Normal Saline Flush) 3 ml QSHIFT PRN IV AFTER MEDS AND BLOOD DRAWS; Start 09/25/16 at 16:30 Ringer's Solution 1,000 ml @ 100 mls/hr Q10H IV ; Start 09/25/16 at 16:25; Stop 09/25/16 at 23:51; Status DC Naloxone HCl (Narcan) 0.4 mg PRN Q2MIN PRN IV SEE INSTRUCTIONS; Start 09/25/16 at 16:30; Stop 10/03/16 at 12:32; Status DC Sodium Chloride 1,000 ml @ 25 mls/hr Q24H IV Last administered on 10/02/16 15 :11; Start 09/25/16 at 16:25 Hydromorphone HCl 30 ml @ 0 mls/hr CONT PRN PRN IV PROTOCOL Last administered on 09/30/16 05:32; Start 09/25/16 at 16:30; Stop 10/02/16 at 12:29; Status DC Ondansetron HCl (Zofran) 4 mg PRN Q6HRS PRN IV NAUESA, 1ST CHOICE Last administered on 09/28/16 07:20; Start 09/25/16 at 16:30 Fentanyl Citrate (Fentanyl 2ml Vial) 100 mcg STK-MED ONCE .ROUTE ; Start at 17:14; Stop 09/25/16 at 17:15; Status DC Acetaminophen (Tylenol) 325 mg PRN Q6HRS PRN MN fever >100.4 Last administered on 10/03/16 23:26; Start 09/26/16 at 14:30 Bisacodyl (Dulcolax Supp) 10 mg PRN DAILY PRN MN CONSTIPATION Last administered on 09/30/16 20:16; Start 09/26/16 at 14:30 Famotidine (Pepcid) 20 mg BID IVP Last administered on 10/04/16 08:52; Start 09/26/16 at 21:00 Insulin Aspart (NovoLOG) 0-5 UNITS TIDWMEALS SQ Last administered on 09/29/16 12:19; Start 09/26/16 at 17:00; Stop 10/02/16 at 12:29; Status DC Dextrose (Dextrose 50%-Water Syringe) 12.5 gm PRN Q15MIN PRN IV SEE COMMENTS; Start 09/26/16 at 15:00; Status Cancel Saliva Substitute (Biotene Moisturizing Mouth) 2 spray PRN Q15MIN PRN PO DRY MOUTH Last administered on 09/28/16 22:06; Start 09/28/16 at 14:00 Sodium Chloride 1,000 ml @ 75 mls/hr 1X ONCE IV Last administered on 14:45; Start 09/29/16 at 14:45; Stop 09/30/16 at 04:04; Status DC Artificial Tears (Artificial Tears) 1 drop PRN Q15MIN PRN OU DRY EYE Last administered on 10/01/16 23:08; Start 10/01/16 at 10:30 Info 1 each PRN DAILY PRN MC SEE COMMENTS Last administered on 10/03/16 13:11 ; Start 10/01/16 at 12:45 Sodium Chloride 90 meq/Potassium Chloride 50 meq/ Potassium Phosphate 13.6 mmol/ Magnesium Sulfate 10 meq/ Calcium Gluconate 10 meq/ Multivitamins 10 ml/Chromium / Copper/Manganese/ Seleni/Zn 1 ml/ Total Parenteral Nutrition/Amino Acids/ Dextrose/ Fat Emulsion Intravenous 1,200 ml @ 50 mls/hr TPN CONT IV Last administered on 10/01/16 23:12; Start 10/01/16 at 22:00; Stop 10/02/16 at 21:59 ; Status DC Sodium Phosphate 15 mmol/Dextrose 255 ml @ 63.75 mls/ hr 1X ONCE IV Last administered on 10/01/16 17:30; Start 10/01/16 at 17:30; Stop 10/01/16 at 21:29 ; Status DC Aspirin (Ecotrin) 81 mg DAILY PO Last administered on 10/04/16 08:47; Start at 13:00 Atorvastatin Calcium (Lipitor) 20 mg HS PO Last administered on 10/03/16 21:42 ; Start 10/02/16 at 21:00 Buspirone HCl (Buspar) 10 mg BID PO Last administered on 10/04/16 08:47; Start 10/02/16 at 13:00 Senna/Docusate Sodium (Senna Plus) 1 tab DAILY PO Last administered on 08:47; Start 10/02/16 at 13:00 Citalopram Hydrobromide (CeleXA) 40 mg DAILY PO Last administered on 10/04/16 08:47; Start 10/03/16 at 09:00 Pregabalin (Lyrica) 150 mg BID PO Last administered on 10/04/16 08:47; Start 10/02/16 at 13:00 Morphine Sulfate 2 mg PRN Q2HR PRN IV PAIN; Start 10/02/16 at 12:30; Stop 10/03 at 15:21; Status DC Morphine Sulfate 4 mg PRN Q2HR PRN IV PAIN Last administered on 10/04/16 09:19 ; Start 10/02/16 at 12:30 Tramadol HCl (Ultram) 50 mg PRN Q6HRS PRN PO PAIN; Start 10/02/16 at 12:30 Acetaminophen/ Hydrocodone Bitart (Lortab 5/325) 1 tab PRN Q4HRS PRN PO PAIN Last administered on 10/04/16 03:24; Start 10/02/16 at 12:30 Insulin Aspart (NovoLOG) 0-9 UNITS TIDWMEALS SQ Last administered on 10/04/16 08:56; Start 10/02/16 at 13:00 Dextrose (Dextrose 50%-Water Syringe) 12.5 gm PRN Q15MIN PRN IV SEE COMMENTS; Start 10/02/16 at 12:30 Sodium Chloride 90 meq/Potassium Chloride 50 meq/ Potassium Phosphate 13.6 mmol/ Magnesium Sulfate 10 meq/ Calcium Gluconate 10 meq/ Multivitamins 10 ml/Chromium / Copper/Manganese/ Seleni/Zn 1 ml/ Total Parenteral Nutrition/Amino Acids/ Dextrose/ Fat Emulsion Intravenous 1,200 ml @ 50 mls/hr TPN CONT IV Last administered on 10/02/16 23:55; Start 10/02/16 at 22:00; Stop 10/03/16 at 21:59 ; Status DC Insulin Detemir (Levemir) 10 units QHS SQ Last administered on 10/03/16 21:43 ; Start 10/03/16 at 21:00 Sodium Chloride 90 meq/Potassium Chloride 50 meq/ Potassium Phosphate 13.6 mmol/ Magnesium Sulfate 10 meq/ Calcium Gluconate 10 meq/ Multivitamins 10 ml/Chromium / Copper/Manganese/ Seleni/Zn 1 ml/ Total Parenteral Nutrition/Amino Acids/ Dextrose/ Fat Emulsion Intravenous 1,200 ml @ 50 mls/hr TPN CONT IV Last administered on 10/03/16 23:27; Start 10/03/16 at 22:00; Stop 10/04/16 at 21:59 Morphine Sulfate 2 mg PRN Q2HR PRN IV PAIN; Start 10/03/16 at 15:21; Stop 10/04 at 07:52; Status DC Morphine Sulfate 2 mg PRN Q2HR PRN IV PAIN; Start 10/04/16 at 07:51 Active Scripts Active Senna S Tablet (Sennosides/Docusate Sodium) 1 Each Tablet 1 Each PO DAILY Reported Lexapro (Escitalopram Oxalate) 20 Mg Tablet 1 Tab PO DAILY Lisinopril-Hctz 20-12.5 Mg Tab (Lisinopril/Hydrochlorothiazide) 1 Each Tablet 1 Tab PO DAILY Lipitor (Atorvastatin Calcium) 20 Mg Tablet 20 Mg PO HS Ambien (Zolpidem Tartrate) 5 Mg Tablet 1 Tab PO QHS Lyrica (Pregabalin) 150 Mg Capsule 150 Mg PO BID 30 Days Buspirone Hcl 10 Mg Tablet 10 Mg PO BID Aspir 81 (Aspirin) 81 Mg Tablet. 1 Tab PO DAILY Vitals/I & O Vital Sign - Last 24 Hours 10/03/16 10/03/16 10/03/16 10/03/16 13:26 15:11 17:32 19:00 Temp 98.8 99.5 98.8 99.5 Pulse 80 84 Resp 16 18 B/P (MAP) 128/59 (82) 93/46 (62) Pulse Ox 97 97 97 100 O2 Delivery Nasal Cannula Nasal Cannula Nasal Cannula Nasal Cannula O2 Flow Rate 2.0 2.0 2.0 2.0 10/03/16 10/03/16 10/03/16 10/03/16 20:00 21:45 22:47 23:00 Temp 101.7 101.7 Pulse 82 Resp 18 20 B/P (MAP) 140/54 (82) Pulse Ox 97 100 O2 Delivery Nasal Cannula Nasal Cannula Nasal Cannula O2 Flow Rate 3.0 3.0 2.0 10/04/16 10/04/16 10/04/16 10/04/16 03:00 03:24 04:30 07:09 Temp 98.6 97.9 98.6 97.9 Pulse 78 78 Resp 20 20 28 B/P (MAP) 128/63 (84) 111/70 (84) Pulse Ox 100 100 100 O2 Delivery Nasal Cannula Nasal Cannula Nasal Cannula Nasal Cannula O2 Flow Rate 2.0 2.0 2.5 10/04/16 10/04/16 10/04/16 10/04/16 08:00 09:19 10:48 11:01 Temp 98.8 98.8 Pulse 83 Resp 24 B/P (MAP) 107/59 (75) Pulse Ox 100 100 100 O2 Delivery Nasal Cannula Nasal Cannula Nasal Cannula Nasal Cannula O2 Flow Rate 2.5 2.5 2.5 2.5 Intake and Output 10/03/16 10/03/16 10/04/16 15:00 23:00 07:00 Intake Total 120 ml 100 ml Output Total 300 ml Balance -300 ml 120 ml 100 ml LORI MCELROY MD Oct 04, 2016 11:58
[2016-10-04] MEDS: TPN PER PHARMACY MC PRN (12:17)
--- NOTE | 2016-10-04 13:51 | PDOC ---
SURGICAL PROGRESS NOTE Subjective says she is feeling ok today no real appetite Vital Signs Vital Signs Date Time Temp Pulse Resp B/P (MAP) Pulse Ox O2 Delivery O2 Flow Rate FiO2 10/04/16 13:13 100 Nasal Cannula 2.5 10/04/16 11:01 98.8 83 24 107/59 (75) 98.8 I&O Intake and Output 10/04/16 06:59 Intake Total 220 ml Output Total 300 ml Balance -80 ml Intake Oral 220 ml Output Urine Total 300 ml # Voids 1 General: Alert, Cooperative, No acute distress Abdomen: Soft, Other (incision c/d/i, no erythema, g tube drainage, reba drain in place) Labs Laboratory Tests Test 10/02/16 16:35 10/02/16 20:40 10/03/16 05:40 10/03/16 07:41 Glucose (Fingerstick) 205 mg/dL (70-99) 204 mg/dL (70-99) 284 mg/dL (70-99) Sodium Level 133 mmol/L (136-145) Potassium Level 4.1 mmol/L (3.5-5.1) Chloride Level 98 mmol/L (98-107) Carbon Dioxide Level 27 mmol/L (21-32) Anion Gap 8 (6-14) Blood Urea Nitrogen 11 mg/dL (7-20) Creatinine 0.7 mg/dL (0.6-1.0) Estimated GFR (Cockcroft-Gault) 98.7 Glucose Level 244 mg/dL (70-99) Hemoglobin A1c 6.5 % (4.8-5.6) Calcium Level 8.2 mg/dL (8.5-10.1) Phosphorus Level 3.0 mg/dL (2.6-4.7) Magnesium Level 1.9 mg/dL (1.8-2.4) Test 10/03/16 11:38 10/03/16 17:06 10/03/16 21:06 10/04/16 04:30 Glucose (Fingerstick) 293 mg/dL (70-99) 259 mg/dL (70-99) 201 mg/dL (70-99) White Blood Count 10.5 x10^3/uL (4.0-11.0) Red Blood Count 2.66 x10^6/uL (3.50-5.40) Hemoglobin 8.5 g/dL (12.0-15.5) Hematocrit 24.4 % (36.0-47.0) Mean Corpuscular Volume 92 fL (79-100) Mean Corpuscular Hemoglobin 32 pg (25-35) Mean Corpuscular Hemoglobin Concent 35 g/dL (31-37) Red Cell Distribution Width 15.1 % (11.5-14.5) Platelet Count 192 x10^3/uL (140-400) Neutrophils (%) (Auto) 76 % (31-73) Lymphocytes (%) (Auto) 11 % (24-48) Monocytes (%) (Auto) 12 % (0-9) Eosinophils (%) (Auto) 0 % (0-3) Basophils (%) (Auto) 1 % (0-3) Neutrophils # (Auto) 8.0 x10^3uL (1.8-7.7) Lymphocytes # (Auto) 1.1 x10^3/uL (1.0-4.8) Monocytes # (Auto) 1.3 x10^3/uL (0.0-1.1) Eosinophils # (Auto) 0.0 x10^3/uL (0.0-0.7) Basophils # (Auto) 0.0 x10^3/uL (0.0-0.2) Sodium Level 133 mmol/L (136-145) Potassium Level 4.5 mmol/L (3.5-5.1) Chloride Level 99 mmol/L (98-107) Carbon Dioxide Level 27 mmol/L (21-32) Anion Gap 7 (6-14) Blood Urea Nitrogen 13 mg/dL (7-20) Creatinine 0.8 mg/dL (0.6-1.0) Estimated GFR (Cockcroft-Gault) 84.6 Glucose Level 263 mg/dL (70-99) Calcium Level 8.2 mg/dL (8.5-10.1) Phosphorus Level 3.1 mg/dL (2.6-4.7) Magnesium Level 2.0 mg/dL (1.8-2.4) Test 10/04/16 07:11 10/04/16 11:02 Glucose (Fingerstick) 288 mg/dL (70-99) 233 mg/dL (70-99) Laboratory Tests Test 10/03/16 17:06 10/03/16 21:06 10/04/16 04:30 10/04/16 07:11 Glucose (Fingerstick) 259 mg/dL (70-99) 201 mg/dL (70-99) 288 mg/dL (70-99) White Blood Count 10.5 x10^3/uL (4.0-11.0) Red Blood Count 2.66 x10^6/uL (3.50-5.40) Hemoglobin 8.5 g/dL (12.0-15.5) Hematocrit 24.4 % (36.0-47.0) Mean Corpuscular Volume 92 fL (79-100) Mean Corpuscular Hemoglobin 32 pg (25-35) Mean Corpuscular Hemoglobin Concent 35 g/dL (31-37) Red Cell Distribution Width 15.1 % (11.5-14.5) Platelet Count 192 x10^3/uL (140-400) Neutrophils (%) (Auto) 76 % (31-73) Lymphocytes (%) (Auto) 11 % (24-48) Monocytes (%) (Auto) 12 % (0-9) Eosinophils (%) (Auto) 0 % (0-3) Basophils (%) (Auto) 1 % (0-3) Neutrophils # (Auto) 8.0 x10^3uL (1.8-7.7) Lymphocytes # (Auto) 1.1 x10^3/uL (1.0-4.8) Monocytes # (Auto) 1.3 x10^3/uL (0.0-1.1) Eosinophils # (Auto) 0.0 x10^3/uL (0.0-0.7) Basophils # (Auto) 0.0 x10^3/uL (0.0-0.2) Sodium Level 133 mmol/L (136-145) Potassium Level 4.5 mmol/L (3.5-5.1) Chloride Level 99 mmol/L (98-107) Carbon Dioxide Level 27 mmol/L (21-32) Anion Gap 7 (6-14) Blood Urea Nitrogen 13 mg/dL (7-20) Creatinine 0.8 mg/dL (0.6-1.0) Estimated GFR (Cockcroft-Gault) 84.6 Glucose Level 263 mg/dL (70-99) Calcium Level 8.2 mg/dL (8.5-10.1) Phosphorus Level 3.1 mg/dL (2.6-4.7) Magnesium Level 2.0 mg/dL (1.8-2.4) Test 10/04/16 11:02 Glucose (Fingerstick) 233 mg/dL (70-99) Problem List Problems Medical Problems: (1) Abdominal pain Status: Acute (2) Nausea and vomiting Status: Acute Assessment/Plan s/p xlap, g tube metastatic uterine cancer tmax last night 101.2, normal WBC--monitor supportive care Problems: XAVIER POLK [employer] FOR[employer] Oct 04, 2016 13:51
[2016-10-04 14:40] VITALS: BP 113/52
[2016-10-04] MEDS: IV NORMAL SALINE 1000ML BAG 1,000 ML IV SCH (16:25)
[2016-10-04 19:15] VITALS: BP 92/52
[2016-10-04] MEDS: ATORVASTATIN CALCIUM 20 MG TABLET PO SCH (21:00)
[2016-10-04] MEDS: INSULIN DETEMIR 300 UNITS/3 ML INSULN.PEN. SQ SCH (21:50)
[2016-10-04] MEDS ORDERED: TOTAL PARENTERAL NUTRITION IV SCH ×10 (22:00)
[2016-10-04] MEDS ORDERED: [UNRECOGNIZED DRUG - OTHER] IV SCH ×10 (22:00)
[2016-10-04] MEDS ORDERED: DEXTROSE 70% IV SCH ×10 (22:00)
[2016-10-04] MEDS ORDERED: AMINO ACIDS IV SCH ×10 (22:00)
[2016-10-04] MEDS: ONDANSETRON PF 4 MG/2 ML VIAL. IV PRN (23:09)
[2016-10-04 23:30] VITALS: BP 107/63
[2016-10-05 03:15] VITALS: BP 105/53
[2016-10-05] MEDS: HYDROcodone/APAP 5/325MG 1 TAB TABLET PO PRN ×2 (04:05→09:50)
[2016-10-05] MEDS: ACETAMINOPHEN 325 MG TABLET. PO PRN (04:05)
[2016-10-05] MEDS: HEPARIN PF for SUB-Q USE 5,000 UNIT/0.5 ML VIAL. SQ SCH ×3 (06:19→21:52)
[2016-10-05 07:00] VITALS: BP 100/49
--- NOTE | 2016-10-05 08:36 | PDOC ---
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 10/05/16 0836: SURGICAL PROGRESS NOTE Subjective not much appetite no emesis denies pain no stool documented since 10/01 Vital Signs Vital Signs Date Time Temp Pulse Resp B/P (MAP) Pulse Ox O2 Delivery O2 Flow Rate FiO2 10/05/16 07:00 98.9 84 18 100/49 (66) 100 Room Air 98.9 10/04/16 14:40 2.5 I&O Intake and Output 10/05/16 07:00 Intake Total 1080 ml Output Total 250 ml Balance 830 ml Intake Oral 1080 ml Drainage Total 250 ml # Voids 3 General: Alert, Oriented X3, Cooperative, No acute distress Abdomen: Soft, Other (gtube to drainage, incision c/d/i, no erythema, reba drain with drainage) Labs Laboratory Tests Test 10/03/16 11:38 10/03/16 17:06 10/03/16 21:06 10/04/16 04:30 Glucose (Fingerstick) 293 mg/dL (70-99) 259 mg/dL (70-99) 201 mg/dL (70-99) White Blood Count 10.5 x10^3/uL (4.0-11.0) Red Blood Count 2.66 x10^6/uL (3.50-5.40) Hemoglobin 8.5 g/dL (12.0-15.5) Hematocrit 24.4 % (36.0-47.0) Mean Corpuscular Volume 92 fL (79-100) Mean Corpuscular Hemoglobin 32 pg (25-35) Mean Corpuscular Hemoglobin Concent 35 g/dL (31-37) Red Cell Distribution Width 15.1 % (11.5-14.5) Platelet Count 192 x10^3/uL (140-400) Neutrophils (%) (Auto) 76 % (31-73) Lymphocytes (%) (Auto) 11 % (24-48) Monocytes (%) (Auto) 12 % (0-9) Eosinophils (%) (Auto) 0 % (0-3) Basophils (%) (Auto) 1 % (0-3) Neutrophils # (Auto) 8.0 x10^3uL (1.8-7.7) Lymphocytes # (Auto) 1.1 x10^3/uL (1.0-4.8) Monocytes # (Auto) 1.3 x10^3/uL (0.0-1.1) Eosinophils # (Auto) 0.0 x10^3/uL (0.0-0.7) Basophils # (Auto) 0.0 x10^3/uL (0.0-0.2) Sodium Level 133 mmol/L (136-145) Potassium Level 4.5 mmol/L (3.5-5.1) Chloride Level 99 mmol/L (98-107) Carbon Dioxide Level 27 mmol/L (21-32) Anion Gap 7 (6-14) Blood Urea Nitrogen 13 mg/dL (7-20) Creatinine 0.8 mg/dL (0.6-1.0) Estimated GFR (Cockcroft-Gault) 84.6 Glucose Level 263 mg/dL (70-99) Calcium Level 8.2 mg/dL (8.5-10.1) Phosphorus Level 3.1 mg/dL (2.6-4.7) Magnesium Level 2.0 mg/dL (1.8-2.4) Test 10/04/16 07:11 10/04/16 11:02 10/04/16 16:15 10/04/16 19:22 Glucose (Fingerstick) 288 mg/dL (70-99) 233 mg/dL (70-99) 244 mg/dL (70-99) 252 mg/dL (70-99) Test 10/04/16 22:30 10/05/16 07:18 Lactic Acid Level 1.1 mmol/L (0.4-2.0) Glucose (Fingerstick) 328 mg/dL (70-99) Laboratory Tests Test 10/04/16 11:02 10/04/16 16:15 10/04/16 19:22 10/04/16 22:30 Glucose (Fingerstick) 233 mg/dL (70-99) 244 mg/dL (70-99) 252 mg/dL (70-99) Lactic Acid Level 1.1 mmol/L (0.4-2.0) Test 10/05/16 07:18 Glucose (Fingerstick) 328 mg/dL (70-99) Problem List Problems Medical Problems: (1) Abdominal pain Status: Acute (2) Nausea and vomiting Status: Acute Assessment/Plan s/p xlap, akil, g tube fevers--101.5, wbc normal--abdominal exam benign will review with Dr Lin Problems: ALBA LIN MD 10/05/16 1446: SURGICAL PROGRESS NOTE Assessment/Plan addendum i saw and examined her. she denies abd pain and her exam is nontender fevers noted. would observe for now. Problems: XAVIER POLK APRN Oct 05, 2016 08:36 ALBA LIN MD Oct 05, 2016 14:46
--- NOTE | 2016-10-05 08:48 | PDOC ---
PROGRESS NOTES Chief Complaint Chief Complaint Abdominal pain, recurrent SBO ASSESSMENT AND PLAN: 1. 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 Nutrition: on PPN for now. 4. HTN/HLD: well controlled; hydralazine IV PRN 5. CAD: hx CABG. stable 6. DM2: sl worse since surgery. monitor with ISS 7. Hypokalemia/hyperkalemia 8. Hyponatremia, resolved wheelchair bound History of Present Illness History of Present Illness Medically ready for SNU DOing well Asks me why she has to stay one more night Kunal at bedside They known the girls in their family wants SNU near [facility] area - contacted thursday PAtient herself says "If no SNU near [facility] that can do my nutrition (TPN), I will put my foot down and tell them [facility]". THURSDAY ENTRY: Farrukh has accepted at has arranged this prior to the weekend, BUt now family tells me they want SNU in [facility] so that closer to their home Patient herself is ok to go to [facility] Theres is a DPOA, some family issues re DPOA PLAN: Check [facility] SNU thursday If none that can take TPN, [facility] is the tn location Dw her and Kunal at bedside Vitals Vitals Vital Signs Date Time Temp Pulse Resp B/P (MAP) Pulse Ox O2 Delivery O2 Flow Rate FiO2 10/05/16 07:00 98.9 84 18 100/49 (66) 100 Room Air 98.9 10/04/16 14:40 2.5 Physical Exam General: Alert, Oriented X3, Cooperative, No acute distress Heart: Normal S1, Normal S2 Lungs: Clear, Other (no r/r/w) Abdomen: Soft, Other (gtube to drainage, incision c/d/i, no erythema, reba drain with drainage) Extremities: No edema Skin: No rashes, No breakdown Labs LABS Laboratory Tests Test 10/04/16 11:02 10/04/16 16:15 10/04/16 19:22 10/04/16 22:30 Glucose (Fingerstick) 233 mg/dL (70-99) 244 mg/dL (70-99) 252 mg/dL (70-99) Lactic Acid Level 1.1 mmol/L (0.4-2.0) Test 10/05/16 07:18 Glucose (Fingerstick) 328 mg/dL (70-99) Review of Systems Review of Systems some cough that has cleared Assessment and Plan Assessmemt and Plan Problems Medical Problems: (1) Abdominal pain Status: Acute (2) Nausea and vomiting Status: Acute Problems: Comment Review of Relevant I have reviewed the following items anita (where applicable) has been applied. Labs Laboratory Tests Test 10/03/16 11:38 10/03/16 17:06 10/03/16 21:06 10/04/16 04:30 Glucose (Fingerstick) 293 mg/dL (70-99) 259 mg/dL (70-99) 201 mg/dL (70-99) White Blood Count 10.5 x10^3/uL (4.0-11.0) Red Blood Count 2.66 x10^6/uL (3.50-5.40) Hemoglobin 8.5 g/dL (12.0-15.5) Hematocrit 24.4 % (36.0-47.0) Mean Corpuscular Volume 92 fL (79-100) Mean Corpuscular Hemoglobin 32 pg (25-35) Mean Corpuscular Hemoglobin Concent 35 g/dL (31-37) Red Cell Distribution Width 15.1 % (11.5-14.5) Platelet Count 192 x10^3/uL (140-400) Neutrophils (%) (Auto) 76 % (31-73) Lymphocytes (%) (Auto) 11 % (24-48) Monocytes (%) (Auto) 12 % (0-9) Eosinophils (%) (Auto) 0 % (0-3) Basophils (%) (Auto) 1 % (0-3) Neutrophils # (Auto) 8.0 x10^3uL (1.8-7.7) Lymphocytes # (Auto) 1.1 x10^3/uL (1.0-4.8) Monocytes # (Auto) 1.3 x10^3/uL (0.0-1.1) Eosinophils # (Auto) 0.0 x10^3/uL (0.0-0.7) Basophils # (Auto) 0.0 x10^3/uL (0.0-0.2) Sodium Level 133 mmol/L (136-145) Potassium Level 4.5 mmol/L (3.5-5.1) Chloride Level 99 mmol/L (98-107) Carbon Dioxide Level 27 mmol/L (21-32) Anion Gap 7 (6-14) Blood Urea Nitrogen 13 mg/dL (7-20) Creatinine 0.8 mg/dL (0.6-1.0) Estimated GFR (Cockcroft-Gault) 84.6 Glucose Level 263 mg/dL (70-99) Calcium Level 8.2 mg/dL (8.5-10.1) Phosphorus Level 3.1 mg/dL (2.6-4.7) Magnesium Level 2.0 mg/dL (1.8-2.4) Test 10/04/16 07:11 10/04/16 11:02 10/04/16 16:15 10/04/16 19:22 Glucose (Fingerstick) 288 mg/dL (70-99) 233 mg/dL (70-99) 244 mg/dL (70-99) 252 mg/dL (70-99) Test 10/04/16 22:30 10/05/16 07:18 Lactic Acid Level 1.1 mmol/L (0.4-2.0) Glucose (Fingerstick) 328 mg/dL (70-99) Laboratory Tests Test 10/04/16 11:02 10/04/16 16:15 10/04/16 19:22 10/04/16 22:30 Glucose (Fingerstick) 233 mg/dL (70-99) 244 mg/dL (70-99) 252 mg/dL (70-99) Lactic Acid Level 1.1 mmol/L (0.4-2.0) Test 10/05/16 07:18 Glucose (Fingerstick) 328 mg/dL (70-99) Medications Current Medications Ondansetron HCl (Zofran) 4 mg PRN Q8HRS PRN IV NAUSEA/VOMITING Last administered on 09/19/16t 02:59; Start 09/18/16 at 22:45; Stop 09/19/16 at 22:44 ; Status DC Fentanyl Citrate (Fentanyl 2ml Vial) 50 mcg PRN Q2HR PRN IV PAIN Last administered on 09/19/16 08:14; Start 09/18/16 at 22:45; Stop 09/19/16 at 22:44 ; Status DC Sodium Chloride 1,000 ml @ 125 mls/hr Q8H IV Last administered on 09/19/16 11 :01; Start 09/18/16 at 22:45; Stop 09/19/16 at 22:44; Status DC Hydralazine HCl (Apresoline) 10 mg PRN Q4HRS PRN IVP ELEVATED BP, SEE COMMENTS Last administered on 09/19/16 01:55; Start 09/19/16 at 01:45; Stop 09/19/16 at 12:24; Status DC Potassium Chloride 30 meq/ Sodium Chloride 1,015 ml @ 125 mls/hr 1X ONCE IV Last administered on 09/19/16 03:07; Start 09/19/16 at 01:45; Stop 09/19/16 at 09:52; Status DC Al Hydroxide/Mg Hydroxide (Mylanta Plus Xs) 15 ml 1X ONCE PO Last administered on 09/19/16 05:50; Start 09/19/16 at 06:00; Stop 09/19/16 at 06:01 ; Status DC Famotidine (Pepcid) 20 mg BID IVP Last administered on 09/24/16 09:01; Start 09/19/16 at 09:00; Stop 09/24/16 at 13:12; Status DC Acetaminophen (Tylenol) 650 mg PRN Q6HRS PRN PO FEVER Last administered on 09/25 08:43; Start 09/19/16 at 09:30; Stop 09/26/16 at 14:20; Status DC Ondansetron HCl (Zofran) 4 mg PRN Q6HRS PRN IV NAUSEA/VOMITING Last administered on 09/25/16 05:35; Start 09/19/16 at 09:30; Stop 09/27/16 at 12:26 ; Status DC Morphine Sulfate 2 mg PRN Q2HR PRN IV PAIN; Start 09/19/16 at 09:30; Stop 09/19 at 09:56; Status DC Tramadol HCl (Ultram) 50 mg PRN Q6HRS PRN PO PAIN Last administered on 09:49; Start 09/19/16 at 09:30; Stop 09/26/16 at 14:20; Status DC Hydralazine HCl (Apresoline) 10 mg PRN Q4HRS PRN IVP ELEVATED BP, SEE COMMENTS Last administered on 09/25/16 17:24; Start 09/19/16 at 09:30 Docusate Sodium (Colace) 100 mg PRN DAILY PRN PO CONSTIPATION Last administered on 09/25/16 08:43; Start 09/19/16 at 09:30; Stop 09/26/16 at 14:20 ; Status DC Barium Sulfate (Liquid E-Z Paque) 355 ml 1X ONCE PO ; Start 09/19/16 at 10:00; Stop 09/19/16 at 10:01; Status DC Barium Sulfate (Liquid E-Z Paque) 355 ml 1X ONCE PO ; Start 09/19/16 at 10:00; Stop 09/19/16 at 10:01; Status DC Morphine Sulfate 2 mg PRN Q2HR PRN IV PAIN Last administered on 09/24/16 09:09 ; Start 09/19/16 at 10:00; Stop 09/24/16 at 13:12; Status DC Throat Lozenges (Chloraseptic) 1 spray PRN Q2HR PRN PO SORE THROAT Last administered on 09/19/16 11:01; Start 09/19/16 at 10:15 Potassium Chloride/Sodium Chloride 1,000 ml @ 100 mls/hr Q10H IV Last administered on 09/20/16 01:57; Start 09/19/16 at 12:30; Stop 09/20/16 at 08:19 ; Status DC Heparin Sodium (Porcine) (Heparin Sq) 5,000 unit Q8HRS SQ Last administered on 10/05/16 06:19; Start 09/19/16 at 14:00 Amino Acids/ Glycerin/ Electrolytes 1,000 ml @ 75 mls/hr [id number] IV Last administered on 10/01/16 11:10; Start 09/20/16 at 08:30; Stop 10/01/16 at 21:59 ; Status DC Dextrose (Dextrose 50%-Water Syringe) 25 gm PRN Q15MIN PRN IV SEE COMMENTS Last administered on 8/12/17at 11:52; Start 09/20/16 at 11:45; Stop 09/29/16 at 13:46; Status DC Iohexol (Omnipaque 350 Mg/ml) 400 ml 1X ONCE PO Last administered on t 12:37; Start 09/20/16 at 12:15; Stop 09/20/16 at 12:16; Status DC Levofloxacin/ Dextrose 100 ml @ 100 mls/hr 1X PREOP PRN IV PRIOR TO PROCEDURE ; Start 09/21/16 at 17:30; Stop 09/22/16 at 18:00; Status DC Ondansetron HCl (Zofran) 4 mg PRN Q6HRS PRN IV NAUSEA/VOMITING; Start 09/22/16 at 07:45; Stop 09/23/16 at 07:44; Status DC Fentanyl Citrate (Fentanyl 2ml Vial) 25 mcg PRN Q5MIN PRN IV MILD PAIN; Start 09/22/16 at 07:45; Stop 09/23/16 at 07:44; Status DC Fentanyl Citrate (Fentanyl 2ml Vial) 50 mcg PRN Q5MIN PRN IV MODERATE PAIN; Start 09/22/16 at 07:45; Stop 09/23/16 at 07:44; Status DC Morphine Sulfate 1 mg PRN Q10MIN PRN IV SEVERE PAIN; Start 09/22/16 at 07:45; Stop 09/23/16 at 07:44; Status DC Ringer's Solution 1,000 ml @ 30 mls/hr Q24H IV ; Start 09/22/16 at 07:45; Stop 09/22/16 at 19:44; Status DC Lidocaine HCl 2 ml PRN 1X PRN ID PRIOR TO IV START; Start 09/22/16 at 07:45; Stop 09/23/16 at 07:44; Status DC Hydromorphone HCl (Dilaudid) 0.5 mg PRN Q10MIN PRN IV SEV PAIN, Second choice; Start 09/22/16 at 07:45; Stop 09/23/16 at 07:44; Status DC Prochlorperazine Edisylate (Compazine) 5 mg PACU PRN PRN IV NAUSEA, MRX1; Start 09/22/16 at 07:45; Stop 09/23/16 at 07:44; Status DC Lorazepam (Ativan) 0.5 mg 1X ONCE IV Last administered on 09/22/16t 12:08; Start 09/22/16 at 12:00; Stop 09/22/16 at 12:03; Status DC Pantoprazole Sodium (Protonix) 40 mg DAILYAC PO Last administered on 09/25/16 08:43; Start 09/24/16 at 13:15; Stop 09/26/16 at 14:20; Status DC Levofloxacin/ Dextrose 100 ml @ 100 mls/hr 1X PREOP ONCE IV Last administered on 09/25/16t 13:32; Start 09/25/16 at 13:30; Stop 09/25/16 at 14:29 ; Status DC Sevoflurane (Ultane) 60 ml STK-MED ONCE IH ; Start 09/25/16 at 13:40; Stop 09/25 at 13:53; Status DC Fentanyl Citrate (Fentanyl 2ml Vial) 100 mcg STK-MED ONCE .ROUTE ; Start at 13:41; Stop 09/25/16 at 13:53; Status DC Glycopyrrolate (Robinul) 1 mg STK-MED ONCE .ROUTE ; Start 09/25/16 at 13:41; Stop 09/25/16 at 13:53; Status DC Propofol 20 ml @ As Directed STK-MED ONCE IV ; Start 09/25/16 at 13:41; Stop at 13:53; Status DC Ondansetron HCl (Zofran) 4 mg STK-MED ONCE .ROUTE ; Start 09/25/16 at 13:42; Stop 09/25/16 at 13:53; Status DC Dexamethasone Sodium Phosphate (Decadron) 20 mg STK-MED ONCE .ROUTE ; Start at 13:42; Stop 09/25/16 at 13:53; Status DC Lidocaine HCl (Lidocaine Pf 2% Vial) 5 ml STK-MED ONCE .ROUTE ; Start 09/25/16 at 13:42; Stop 09/25/16 at 13:53; Status DC Ondansetron HCl (Zofran) 4 mg PRN Q6HRS PRN IV NAUSEA/VOMITING; Start 09/25/16 at 14:00; Stop 09/26/16 at 13:59; Status DC Fentanyl Citrate (Fentanyl 2ml Vial) 25 mcg PRN Q5MIN PRN IV MILD PAIN; Start 09/25/16 at 14:00; Stop 09/26/16 at 13:59; Status DC Fentanyl Citrate (Fentanyl 2ml Vial) 50 mcg PRN Q5MIN PRN IV MODERATE PAIN Last administered on 09/25/16t 17:31; Start 09/25/16 at 14:00; Stop 09/26/16 at 13:59; Status DC Morphine Sulfate 1 mg PRN Q10MIN PRN IV SEVERE PAIN; Start 09/25/16 at 14:00; Stop 09/26/16 at 13:59; Status DC Ringer's Solution 1,000 ml @ 0 mls/hr Q0M IV ; Start 09/25/16 at 13:53; Stop at 01:52; Status DC Lidocaine HCl 2 ml PRN 1X PRN ID PRIOR TO IV START; Start 09/25/16 at 14:00; Stop 09/26/16 at 13:59; Status DC Hydromorphone HCl (Dilaudid) 0.5 mg PRN Q10MIN PRN IV SEV PAIN, Second choice; Start 09/25/16 at 14:00; Stop 09/26/16 at 13:59; Status DC Prochlorperazine Edisylate (Compazine) 5 mg PACU PRN PRN IV NAUSEA, MRX1; Start 09/25/16 at 14:00; Stop 09/26/16 at 13:59; Status DC Fentanyl Citrate (Fentanyl 2ml Vial) 100 mcg STK-MED ONCE .ROUTE ; Start at 14:08; Stop 09/25/16 at 14:09; Status DC Ringer's Solution 1,000 ml @ 125 mls/hr Q8H IV ; Start 09/25/16 at 14:09; Stop 09/26/16 at 02:08; Status DC Fentanyl Citrate (Fentanyl 2ml Vial) 50 mcg PRN Q5MIN PRN IV pain Last administered on 09/25/16t 14:15; Start 09/25/16 at 14:15; Stop 09/26/16 at 14:20 ; Status DC Succinylcholine Chloride (Anectine) 200 mg STK-MED ONCE .ROUTE ; Start 09/25/16 at 14:20; Stop 09/25/16 at 14:21; Status DC Fentanyl Citrate (Fentanyl 2ml Vial) 100 mcg STK-MED ONCE .ROUTE ; Start at 14:54; Stop 09/25/16 at 14:55; Status DC Enoxaparin Sodium (Lovenox 40mg Syringe) 40 mg Q24H SQ ; Start 09/25/16 at 18:00 ; Stop 09/26/16 at 11:03; Status DC Sodium Chloride (Normal Saline Flush) 3 ml QSHIFT PRN IV AFTER MEDS AND BLOOD DRAWS; Start 09/25/16 at 16:30 Ringer's Solution 1,000 ml @ 100 mls/hr Q10H IV ; Start 09/25/16 at 16:25; Stop 09/25/16 at 23:51; Status DC Naloxone HCl (Narcan) 0.4 mg PRN Q2MIN PRN IV SEE INSTRUCTIONS; Start 09/25/16 at 16:30; Stop 10/03/16 at 12:32; Status DC Sodium Chloride 1,000 ml @ 25 mls/hr Q24H IV Last administered on 10/04/16 16 :25; Start 09/25/16 at 16:25 Hydromorphone HCl 30 ml @ 0 mls/hr CONT PRN PRN IV PROTOCOL Last administered on 09/30/16 05:32; Start 09/25/16 at 16:30; Stop 10/02/16 at 12:29; Status DC Ondansetron HCl (Zofran) 4 mg PRN Q6HRS PRN IV NAUESA, 1ST CHOICE Last administered on 10/04/16 23:09; Start 09/25/16 at 16:30 Fentanyl Citrate (Fentanyl 2ml Vial) 100 mcg STK-MED ONCE .ROUTE ; Start at 17:14; Stop 09/25/16 at 17:15; Status DC Acetaminophen (Tylenol) 325 mg PRN Q6HRS PRN SC fever >100.4 Last administered on 10/03/16 23:26; Start 09/26/16 at 14:30 Bisacodyl (Dulcolax Supp) 10 mg PRN DAILY PRN SC CONSTIPATION Last administered on 09/30/16 20:16; Start 09/26/16 at 14:30 Famotidine (Pepcid) 20 mg BID IVP Last administered on 10/04/16 21:01; Start 09/26/16 at 21:00 Insulin Aspart (NovoLOG) 0-5 UNITS TIDWMEALS SQ Last administered on 09/29/16 12:19; Start 09/26/16 at 17:00; Stop 10/02/16 at 12:29; Status DC Dextrose (Dextrose 50%-Water Syringe) 12.5 gm PRN Q15MIN PRN IV SEE COMMENTS; Start 09/26/16 at 15:00; Status Cancel Saliva Substitute (Biotene Moisturizing Mouth) 2 spray PRN Q15MIN PRN PO DRY MOUTH Last administered on 09/28/16 22:06; Start 09/28/16 at 14:00 Sodium Chloride 1,000 ml @ 75 mls/hr 1X ONCE IV Last administered on 14:45; Start 09/29/16 at 14:45; Stop 09/30/16 at 04:04; Status DC Artificial Tears (Artificial Tears) 1 drop PRN Q15MIN PRN OU DRY EYE Last administered on 10/01/16 23:08; Start 10/01/16 at 10:30 Info 1 each PRN DAILY PRN MC SEE COMMENTS Last administered on 10/04/16 12:17 ; Start 10/01/16 at 12:45 Sodium Chloride 90 meq/Potassium Chloride 50 meq/ Potassium Phosphate 13.6 mmol/ Magnesium Sulfate 10 meq/ Calcium Gluconate 10 meq/ Multivitamins 10 ml/Chromium / Copper/Manganese/ Seleni/Zn 1 ml/ Total Parenteral Nutrition/Amino Acids/ Dextrose/ Fat Emulsion Intravenous 1,200 ml @ 50 mls/hr TPN CONT IV Last administered on 10/01/16 23:12; Start 10/01/16 at 22:00; Stop 10/02/16 at 21:59 ; Status DC Sodium Phosphate 15 mmol/Dextrose 255 ml @ 63.75 mls/ hr 1X ONCE IV Last administered on 10/01/16 17:30; Start 10/01/16 at 17:30; Stop 10/01/16 at 21:29 ; Status DC Aspirin (Ecotrin) 81 mg DAILY PO Last administered on 10/04/16 08:47; Start at 13:00 Atorvastatin Calcium (Lipitor) 20 mg HS PO Last administered on 10/04/16 21:00 ; Start 10/02/16 at 21:00 Buspirone HCl (Buspar) 10 mg BID PO Last administered on 10/04/16 21:01; Start 10/02/16 at 13:00 Senna/Docusate Sodium (Senna Plus) 1 tab DAILY PO Last administered on 08:47; Start 10/02/16 at 13:00 Citalopram Hydrobromide (CeleXA) 40 mg DAILY PO Last administered on 10/04/16 08:47; Start 10/03/16 at 09:00 Pregabalin (Lyrica) 150 mg BID PO Last administered on 10/04/16 21:00; Start 10/02/16 at 13:00 Morphine Sulfate 2 mg PRN Q2HR PRN IV PAIN; Start 10/02/16 at 12:30; Stop 10/03 at 15:21; Status DC Morphine Sulfate 4 mg PRN Q2HR PRN IV PAIN Last administered on 10/04/16 13:13 ; Start 10/02/16 at 12:30; Stop 10/04/16 at 15:59; Status DC Tramadol HCl (Ultram) 50 mg PRN Q6HRS PRN PO MILD TO MODERATE PAIN Last administered on 10/04/16 23:09; Start 10/02/16 at 12:30 Acetaminophen/ Hydrocodone Bitart (Lortab 5/325) 1 tab PRN Q4HRS PRN PO MODERATE TO SEVERE PAIN Last administered on 10/05/16 04:05; Start 10/02/16 at 12:30 Insulin Aspart (NovoLOG) 0-9 UNITS TIDWMEALS SQ Last administered on 10/04/16 17:16; Start 10/02/16 at 13:00 Dextrose (Dextrose 50%-Water Syringe) 12.5 gm PRN Q15MIN PRN IV SEE COMMENTS; Start 10/02/16 at 12:30 Sodium Chloride 90 meq/Potassium Chloride 50 meq/ Potassium Phosphate 13.6 mmol/ Magnesium Sulfate 10 meq/ Calcium Gluconate 10 meq/ Multivitamins 10 ml/Chromium / Copper/Manganese/ Seleni/Zn 1 ml/ Total Parenteral Nutrition/Amino Acids/ Dextrose/ Fat Emulsion Intravenous 1,200 ml @ 50 mls/hr TPN CONT IV Last administered on 10/02/16 23:55; Start 10/02/16 at 22:00; Stop 10/03/16 at 21:59 ; Status DC Insulin Detemir (Levemir) 10 units QHS SQ Last administered on 10/04/16 21:50 ; Start 10/03/16 at 21:00 Sodium Chloride 90 meq/Potassium Chloride 50 meq/ Potassium Phosphate 13.6 mmol/ Magnesium Sulfate 10 meq/ Calcium Gluconate 10 meq/ Multivitamins 10 ml/Chromium / Copper/Manganese/ Seleni/Zn 1 ml/ Total Parenteral Nutrition/Amino Acids/ Dextrose/ Fat Emulsion Intravenous 1,200 ml @ 50 mls/hr TPN CONT IV Last administered on 10/03/16 23:27; Start 10/03/16 at 22:00; Stop 10/04/16 at 21:59 ; Status DC Morphine Sulfate 2 mg PRN Q2HR PRN IV PAIN; Start 10/03/16 at 15:21; Stop 10/04 at 07:52; Status DC Morphine Sulfate 2 mg PRN Q2HR PRN IV PAIN; Start 10/04/16 at 07:51 Sodium Chloride 90 meq/Potassium Chloride 50 meq/ Potassium Phosphate 13.6 mmol/ Magnesium Sulfate 10 meq/ Calcium Gluconate 10 meq/ Multivitamins 10 ml/Chromium / Copper/Manganese/ Seleni/Zn 1 ml/ Total Parenteral Nutrition/Amino Acids/ Dextrose/ Fat Emulsion Intravenous 1,200 ml @ 50 mls/hr TPN CONT IV Last administered on 10/04/16 21:08; Start 10/04/16 at 22:00; Stop 10/05/16 at 21:59 Ceftriaxone Sodium 1 gm/ Sodium Chloride 50 ml @ 100 mls/hr Q24H IV Last administered on 10/04/16 16:00; Start 10/04/16 at 16:00 Acetaminophen (Tylenol) 325 mg PRN Q6HRS PRN PO MILD PAIN / TEMP Last administered on 10/05/16 04:05; Start 10/05/16 at 04:00 Active Scripts Active Senna S Tablet (Sennosides/Docusate Sodium) 1 Each Tablet 1 Each PO DAILY Reported Lexapro (Escitalopram Oxalate) 20 Mg Tablet 1 Tab PO DAILY Lisinopril-Hctz 20-12.5 Mg Tab (Lisinopril/Hydrochlorothiazide) 1 Each Tablet 1 Tab PO DAILY Lipitor (Atorvastatin Calcium) 20 Mg Tablet 20 Mg PO HS Ambien (Zolpidem Tartrate) 5 Mg Tablet 1 Tab PO QHS Lyrica (Pregabalin) 150 Mg Capsule 150 Mg PO BID 30 Days Buspirone Hcl 10 Mg Tablet 10 Mg PO BID Aspir 81 (Aspirin) 81 Mg Tablet. 1 Tab PO DAILY Vitals/I & O Vital Sign - Last 24 Hours 10/04/16 10/04/16 10/04/16 10/04/16 09:19 11:01 13:13 14:40 Temp 98.8 98.8 Pulse 83 Resp 24 B/P (MAP) 107/59 (75) Pulse Ox 100 100 100 100 O2 Delivery Nasal Cannula Nasal Cannula Nasal Cannula Nasal Cannula O2 Flow Rate 2.5 2.5 2.5 2.5 10/04/16 10/04/16 10/04/16 10/04/16 14:40 19:15 19:30 23:09 Temp 100.9 100.5 100.9 100.5 Pulse 88 98 Resp 24 18 B/P (MAP) 113/52 (72) 92/52 (65) Pulse Ox 99 98 98 O2 Delivery Nasal Cannula Room Air Room Air Room Air O2 Flow Rate 2.5 10/04/16 10/05/16 10/05/16 10/05/16 23:30 00:10 03:15 04:05 Temp 98.6 101.0 98.6 101.0 Pulse 87 84 Resp 16 16 B/P (MAP) 107/63 (78) 105/53 (70) Pulse Ox 97 97 97 97 O2 Delivery Room Air Room Air Room Air Room Air 10/05/16 10/05/16 05:10 07:00 Temp 98.9 98.9 Pulse 84 Resp 18 B/P (MAP) 100/49 (66) Pulse Ox 97 100 O2 Delivery Room Air Room Air Intake and Output 10/04/16 10/04/16 10/05/16 15:00 23:00 07:00 Intake Total 480 ml 600 ml Output Total 250 ml Balance 480 ml 350 ml LORI MCELROY MD Oct 05, 2016 08:47
[2016-10-05] MEDS: INSULIN ASPART 300 UNITS/3 ML INSULN.PEN SQ SCH ×3 (09:13→17:23)
[2016-10-05] MEDS: busPIRone 10 MG TABLET. PO SCH ×2 (09:28→21:16)
[2016-10-05] MEDS: CITALOPRAM 20 MG TABLET. PO SCH (09:28)
[2016-10-05] MEDS: FAMOTIDINE 20 MG/2 ML VIAL IVP SCH ×2 (09:28→21:17)
[2016-10-05] MEDS: ASPIRIN ENTERIC COATED 81 MG TABLET.DR. PO SCH (09:28)
[2016-10-05] MEDS: PREGABALIN 75 MG CAPSULE PO SCH ×2 (09:29→21:15)
[2016-10-05] MEDS: SENNOSIDES/DOCUSATE 8.6/50MG TABLET. PO SCH (09:51)
[2016-10-05] MEDS: IV NORMAL SALINE 1000ML BAG 1,000 ML IV SCH (09:53)
[2016-10-05 11:00] VITALS: BP 109/77
[2016-10-05] MEDS: TPN PER PHARMACY MC PRN ×2 (11:35→11:36)
[2016-10-05] MEDS: MORPHINE SULFATE 4 MG/ML DISP.SYRIN. IV PRN (12:13)
[2016-10-05 15:00] VITALS: BP 140/45
[2016-10-05 19:00] VITALS: BP 94/49
[2016-10-05] MEDS: ATORVASTATIN CALCIUM 20 MG TABLET PO SCH (21:15)
[2016-10-05] MEDS: INSULIN DETEMIR 300 UNITS/3 ML INSULN.PEN. SQ SCH (21:26)
[2016-10-05] MEDS ORDERED: [UNRECOGNIZED DRUG - OTHER] IV SCH ×10 (22:00)
[2016-10-05] MEDS ORDERED: AMINO ACIDS IV SCH ×10 (22:00)
[2016-10-05] MEDS ORDERED: DEXTROSE 70% IV SCH ×10 (22:00)
[2016-10-05] MEDS ORDERED: TOTAL PARENTERAL NUTRITION IV SCH ×10 (22:00)
[2016-10-05 23:00] VITALS: BP 101/43
[2016-10-06 03:00] VITALS: BP 103/50
[2016-10-06] MEDS: MORPHINE SULFATE 4 MG/ML DISP.SYRIN. IV PRN (05:07)
[2016-10-06] MEDS: HEPARIN PF for SUB-Q USE 5,000 UNIT/0.5 ML VIAL. SQ SCH ×2 (05:42→12:49)
[2016-10-06 06:26] LABS: ALBUMIN 1.5 g/dL (3.4-5.0); ALBUMIN/GLOBULIN RATIO 0.3 (1.0-1.7); CALCIUM 8.4 mg/dL (8.5-10.1); CREATININE 0.9 mg/dL (0.6-1.0); GFR 73.9; MAGNESIUM 1.8 mg/dL (1.8-2.4); PHOSPHORUS 3.1 mg/dL (2.6-4.7); POTASSIUM 4.6 mmol/L (3.5-5.1); TOTAL BILIRUBIN 0.4 mg/dL (0.2-1.0); TOTAL PROTEIN 6.8 g/dL (6.4-8.2)
[2016-10-06 07:00] VITALS: BP 115/50
[2016-10-06] MEDS: busPIRone 10 MG TABLET. PO SCH (08:58)
[2016-10-06] MEDS: SENNOSIDES/DOCUSATE 8.6/50MG TABLET. PO SCH (08:58)
[2016-10-06] MEDS: FAMOTIDINE 20 MG/2 ML VIAL IVP SCH (08:58)
--- NOTE | 2016-10-06 08:58 | PDOC ---
PROGRESS NOTES Subjective Subjective c/c -f/u of Recurrent metastatic endometrial carcinoma, stage 4 ROS - no abd pain Objective Objective Vital Signs Date Time Temp Pulse Resp B/P (MAP) Pulse Ox O2 Delivery O2 Flow Rate FiO2 10/06/16 07:00 98.8 82 18 115/50 (71) 99 Nasal Cannula 2.0 98.8 Intake and Output 10/06/16 07:00 Intake Total 300 ml Output Total 150 ml Balance 150 ml Intake Oral 300 ml Output Urine Total 150 ml # Voids 4 Physical Exam Heart: Normal S1, Normal S2 General: Alert, Oriented X3 Lungs: Clear to auscultation Neuro: Normal speech Assessment Assessment Problems Medical Problems: (1) Abdominal pain Status: Acute (2) Nausea and vomiting Status: Acute IMPRESSION AND PLAN: 1. Recurrent metastatic endometrial carcinoma, stage 4. She was initially diagnosed with endometrial carcinoma in 2014, status post surgery, chemotherapy and radiation therapy. She received carboplatin and Taxol at [facility] by Dr. Santiago Funk. She now has evidence of progressive disease. I would recommend follow up with Dr. Santiago Funk regarding further palliative chemotherapy. All her questions were answered. Appreciate palliative care consult. Family meeting today. PATHOLOGY REPORT Fibromembranous tissue, abdominal wall mass biopsy: - METASTATIC POORLY DIFFERENTIATED ADENOCARCINOMA. 2. Small-bowel obstruction, status post exploratory laparotomy and lysis of adhesions on 09/25/2016. Continue postoperative care for Dr. Johnathan Carrillo. 3. Abd pain - post-op, continue pain management. Improving. I d/w RN 4. Anemia, monitor [id number] Comment Review of Relevant I have reviewed the following items anita (where applicable) has been applied. Labs Laboratory Tests Test 10/04/16 11:02 10/04/16 16:15 10/04/16 19:22 10/04/16 22:30 Glucose (Fingerstick) 233 mg/dL (70-99) 244 mg/dL (70-99) 252 mg/dL (70-99) Lactic Acid Level 1.1 mmol/L (0.4-2.0) Test 10/05/16 07:18 10/05/16 11:29 10/05/16 16:16 10/05/16 20:46 Glucose (Fingerstick) 328 mg/dL (70-99) 332 mg/dL (70-99) 318 mg/dL (70-99) 250 mg/dL (70-99) Test 10/06/16 05:30 10/06/16 07:54 Sodium Level 132 mmol/L (136-145) Potassium Level 4.6 mmol/L (3.5-5.1) Chloride Level 97 mmol/L (98-107) Carbon Dioxide Level 25 mmol/L (21-32) Anion Gap 10 (6-14) Blood Urea Nitrogen 15 mg/dL (7-20) Creatinine 0.9 mg/dL (0.6-1.0) Estimated GFR (Cockcroft-Gault) 73.9 BUN/Creatinine Ratio 17 (6-20) Glucose Level 277 mg/dL (70-99) Calcium Level 8.4 mg/dL (8.5-10.1) Phosphorus Level 3.1 mg/dL (2.6-4.7) Magnesium Level 1.8 mg/dL (1.8-2.4) Total Bilirubin 0.4 mg/dL (0.2-1.0) Aspartate Amino Transf (AST/SGOT) 26 U/L (15-37) Alanine Aminotransferase (ALT/SGPT) 26 U/L (14-59) Alkaline Phosphatase 175 U/L (46-116) Total Protein 6.8 g/dL (6.4-8.2) Albumin 1.5 g/dL (3.4-5.0) Albumin/Globulin Ratio 0.3 (1.0-1.7) Glucose (Fingerstick) 291 mg/dL (70-99) Laboratory Tests Test 10/05/16 11:29 10/05/16 16:16 10/05/16 20:46 10/06/16 05:30 Glucose (Fingerstick) 332 mg/dL (70-99) 318 mg/dL (70-99) 250 mg/dL (70-99) Sodium Level 132 mmol/L (136-145) Potassium Level 4.6 mmol/L (3.5-5.1) Chloride Level 97 mmol/L (98-107) Carbon Dioxide Level 25 mmol/L (21-32) Anion Gap 10 (6-14) Blood Urea Nitrogen 15 mg/dL (7-20) Creatinine 0.9 mg/dL (0.6-1.0) Estimated GFR (Cockcroft-Gault) 73.9 BUN/Creatinine Ratio 17 (6-20) Glucose Level 277 mg/dL (70-99) Calcium Level 8.4 mg/dL (8.5-10.1) Phosphorus Level 3.1 mg/dL (2.6-4.7) Magnesium Level 1.8 mg/dL (1.8-2.4) Total Bilirubin 0.4 mg/dL (0.2-1.0) Aspartate Amino Transf (AST/SGOT) 26 U/L (15-37) Alanine Aminotransferase (ALT/SGPT) 26 U/L (14-59) Alkaline Phosphatase 175 U/L (46-116) Total Protein 6.8 g/dL (6.4-8.2) Albumin 1.5 g/dL (3.4-5.0) Albumin/Globulin Ratio 0.3 (1.0-1.7) Test 10/06/16 07:54 Glucose (Fingerstick) 291 mg/dL (70-99) Microbiology 10/04/16 Blood Culture - Preliminary, Resulted NO GROWTH AFTER 1 DAY Medications Current Medications Ondansetron HCl (Zofran) 4 mg PRN Q8HRS PRN IV NAUSEA/VOMITING Last administered on 09/19/16 02:59; Start 09/18/16 at 22:45; Stop 09/19/16 at 22:44 ; Status DC Fentanyl Citrate (Fentanyl 2ml Vial) 50 mcg PRN Q2HR PRN IV PAIN Last administered on 09/19/16 08:14; Start 09/18/16 at 22:45; Stop 09/19/16 at 22:44 ; Status DC Sodium Chloride 1,000 ml @ 125 mls/hr Q8H IV Last administered on 09/19/16 11 :01; Start 09/18/16 at 22:45; Stop 09/19/16 at 22:44; Status DC Hydralazine HCl (Apresoline) 10 mg PRN Q4HRS PRN IVP ELEVATED BP, SEE COMMENTS Last administered on 09/19/16 01:55; Start 09/19/16 at 01:45; Stop 09/19/16 at 12:24; Status DC Potassium Chloride 30 meq/ Sodium Chloride 1,015 ml @ 125 mls/hr 1X ONCE IV Last administered on 09/19/16 03:07; Start 09/19/16 at 01:45; Stop 09/19/16 at 09:52; Status DC Al Hydroxide/Mg Hydroxide (Mylanta Plus Xs) 15 ml 1X ONCE PO Last administered on 09/19/16 05:50; Start 09/19/16 at 06:00; Stop 09/19/16 at 06:01 ; Status DC Famotidine (Pepcid) 20 mg BID IVP Last administered on 09/24/16 09:01; Start 09/19/16 at 09:00; Stop 09/24/16 at 13:12; Status DC Acetaminophen (Tylenol) 650 mg PRN Q6HRS PRN PO FEVER Last administered on 09/25 08:43; Start 09/19/16 at 09:30; Stop 09/26/16 at 14:20; Status DC Ondansetron HCl (Zofran) 4 mg PRN Q6HRS PRN IV NAUSEA/VOMITING Last administered on 09/25/16 05:35; Start 09/19/16 at 09:30; Stop 09/27/16 at 12:26 ; Status DC Morphine Sulfate 2 mg PRN Q2HR PRN IV PAIN; Start 09/19/16 at 09:30; Stop 09/19 at 09:56; Status DC Tramadol HCl (Ultram) 50 mg PRN Q6HRS PRN PO PAIN Last administered on 09:49; Start 09/19/16 at 09:30; Stop 09/26/16 at 14:20; Status DC Hydralazine HCl (Apresoline) 10 mg PRN Q4HRS PRN IVP ELEVATED BP, SEE COMMENTS Last administered on 09/25/16 17:24; Start 09/19/16 at 09:30 Docusate Sodium (Colace) 100 mg PRN DAILY PRN PO CONSTIPATION Last administered on 09/25/16 08:43; Start 09/19/16 at 09:30; Stop 09/26/16 at 14:20 ; Status DC Barium Sulfate (Liquid E-Z Paque) 355 ml 1X ONCE PO ; Start 09/19/16 at 10:00; Stop 09/19/16 at 10:01; Status DC Barium Sulfate (Liquid E-Z Paque) 355 ml 1X ONCE PO ; Start 09/19/16 at 10:00; Stop 09/19/16 at 10:01; Status DC Morphine Sulfate 2 mg PRN Q2HR PRN IV PAIN Last administered on 09/24/16 09:09 ; Start 09/19/16 at 10:00; Stop 09/24/16 at 13:12; Status DC Throat Lozenges (Chloraseptic) 1 spray PRN Q2HR PRN PO SORE THROAT Last administered on 09/19/16 11:01; Start 09/19/16 at 10:15 Potassium Chloride/Sodium Chloride 1,000 ml @ 100 mls/hr Q10H IV Last administered on 09/20/16 01:57; Start 09/19/16 at 12:30; Stop 09/20/16 at 08:19 ; Status DC Heparin Sodium (Porcine) (Heparin Sq) 5,000 unit Q8HRS SQ Last administered on 10/06/16 05:42; Start 09/19/16 at 14:00 Amino Acids/ Glycerin/ Electrolytes 1,000 ml @ 75 mls/hr [id number] IV Last administered on 10/01/16 11:10; Start 09/20/16 at 08:30; Stop 10/01/16 at 21:59 ; Status DC Dextrose (Dextrose 50%-Water Syringe) 25 gm PRN Q15MIN PRN IV SEE COMMENTS Last administered on 09/20/16 11:52; Start 09/20/16 at 11:45; Stop 09/29/16 at 13:46; Status DC Iohexol (Omnipaque 350 Mg/ml) 400 ml 1X ONCE PO Last administered on 12:37; Start 09/20/16 at 12:15; Stop 09/20/16 at 12:16; Status DC Levofloxacin/ Dextrose 100 ml @ 100 mls/hr 1X PREOP PRN IV PRIOR TO PROCEDURE ; Start 09/21/16 at 17:30; Stop 09/22/16 at 18:00; Status DC Ondansetron HCl (Zofran) 4 mg PRN Q6HRS PRN IV NAUSEA/VOMITING; Start 09/22/16 at 07:45; Stop 09/23/16 at 07:44; Status DC Fentanyl Citrate (Fentanyl 2ml Vial) 25 mcg PRN Q5MIN PRN IV MILD PAIN; Start 09/22/16 at 07:45; Stop 09/23/16 at 07:44; Status DC Fentanyl Citrate (Fentanyl 2ml Vial) 50 mcg PRN Q5MIN PRN IV MODERATE PAIN; Start 09/22/16 at 07:45; Stop 09/23/16 at 07:44; Status DC Morphine Sulfate 1 mg PRN Q10MIN PRN IV SEVERE PAIN; Start 09/22/16 at 07:45; Stop 09/23/16 at 07:44; Status DC Ringer's Solution 1,000 ml @ 30 mls/hr Q24H IV ; Start 09/22/16 at 07:45; Stop 09/22/16 at 19:44; Status DC Lidocaine HCl 2 ml PRN 1X PRN ID PRIOR TO IV START; Start 09/22/16 at 07:45; Stop 09/23/16 at 07:44; Status DC Hydromorphone HCl (Dilaudid) 0.5 mg PRN Q10MIN PRN IV SEV PAIN, Second choice; Start 09/22/16 at 07:45; Stop 09/23/16 at 07:44; Status DC Prochlorperazine Edisylate (Compazine) 5 mg PACU PRN PRN IV NAUSEA, MRX1; Start 09/22/16 at 07:45; Stop 09/23/16 at 07:44; Status DC Lorazepam (Ativan) 0.5 mg 1X ONCE IV Last administered on 09/22/16 12:08; Start 09/22/16 at 12:00; Stop 09/22/16 at 12:03; Status DC Pantoprazole Sodium (Protonix) 40 mg DAILYAC PO Last administered on 09/25/16 08:43; Start 09/24/16 at 13:15; Stop 09/26/16 at 14:20; Status DC Levofloxacin/ Dextrose 100 ml @ 100 mls/hr 1X PREOP ONCE IV Last administered on 09/25/16 13:32; Start 09/25/16 at 13:30; Stop 09/25/16 at 14:29 ; Status DC Sevoflurane (Ultane) 60 ml STK-MED ONCE IH ; Start 09/25/16 at 13:40; Stop 09/25 at 13:53; Status DC Fentanyl Citrate (Fentanyl 2ml Vial) 100 mcg STK-MED ONCE .ROUTE ; Start at 13:41; Stop 09/25/16 at 13:53; Status DC Glycopyrrolate (Robinul) 1 mg STK-MED ONCE .ROUTE ; Start 09/25/16 at 13:41; Stop 09/25/16 at 13:53; Status DC Propofol 20 ml @ As Directed STK-MED ONCE IV ; Start 09/25/16 at 13:41; Stop at 13:53; Status DC Ondansetron HCl (Zofran) 4 mg STK-MED ONCE .ROUTE ; Start 09/25/16 at 13:42; Stop 09/25/16 at 13:53; Status DC Dexamethasone Sodium Phosphate (Decadron) 20 mg STK-MED ONCE .ROUTE ; Start at 13:42; Stop 09/25/16 at 13:53; Status DC Lidocaine HCl (Lidocaine Pf 2% Vial) 5 ml STK-MED ONCE .ROUTE ; Start 09/25/16 at 13:42; Stop 09/25/16 at 13:53; Status DC Ondansetron HCl (Zofran) 4 mg PRN Q6HRS PRN IV NAUSEA/VOMITING; Start 09/25/16 at 14:00; Stop 09/26/16 at 13:59; Status DC Fentanyl Citrate (Fentanyl 2ml Vial) 25 mcg PRN Q5MIN PRN IV MILD PAIN; Start 09/25/16 at 14:00; Stop 09/26/16 at 13:59; Status DC Fentanyl Citrate (Fentanyl 2ml Vial) 50 mcg PRN Q5MIN PRN IV MODERATE PAIN Last administered on 09/25/16t 17:31; Start 09/25/16 at 14:00; Stop 09/26/16 at 13:59; Status DC Morphine Sulfate 1 mg PRN Q10MIN PRN IV SEVERE PAIN; Start 09/25/16 at 14:00; Stop 09/26/16 at 13:59; Status DC Ringer's Solution 1,000 ml @ 0 mls/hr Q0M IV ; Start 09/25/16 at 13:53; Stop at 01:52; Status DC Lidocaine HCl 2 ml PRN 1X PRN ID PRIOR TO IV START; Start 09/25/16 at 14:00; Stop 09/26/16 at 13:59; Status DC Hydromorphone HCl (Dilaudid) 0.5 mg PRN Q10MIN PRN IV SEV PAIN, Second choice; Start 09/25/16 at 14:00; Stop 09/26/16 at 13:59; Status DC Prochlorperazine Edisylate (Compazine) 5 mg PACU PRN PRN IV NAUSEA, MRX1; Start 09/25/16 at 14:00; Stop 09/26/16 at 13:59; Status DC Fentanyl Citrate (Fentanyl 2ml Vial) 100 mcg STK-MED ONCE .ROUTE ; Start at 14:08; Stop 09/25/16 at 14:09; Status DC Ringer's Solution 1,000 ml @ 125 mls/hr Q8H IV ; Start 09/25/16 at 14:09; Stop 09/26/16 at 02:08; Status DC Fentanyl Citrate (Fentanyl 2ml Vial) 50 mcg PRN Q5MIN PRN IV pain Last administered on 09/25/16t 14:15; Start 09/25/16 at 14:15; Stop 09/26/16 at 14:20 ; Status DC Succinylcholine Chloride (Anectine) 200 mg STK-MED ONCE .ROUTE ; Start 09/25/16 at 14:20; Stop 09/25/16 at 14:21; Status DC Fentanyl Citrate (Fentanyl 2ml Vial) 100 mcg STK-MED ONCE .ROUTE ; Start at 14:54; Stop 09/25/16 at 14:55; Status DC Enoxaparin Sodium (Lovenox 40mg Syringe) 40 mg Q24H SQ ; Start 09/25/16 at 18:00 ; Stop 09/26/16 at 11:03; Status DC Sodium Chloride (Normal Saline Flush) 3 ml QSHIFT PRN IV AFTER MEDS AND BLOOD DRAWS; Start 09/25/16 at 16:30 Ringer's Solution 1,000 ml @ 100 mls/hr Q10H IV ; Start 09/25/16 at 16:25; Stop 09/25/16 at 23:51; Status DC Naloxone HCl (Narcan) 0.4 mg PRN Q2MIN PRN IV SEE INSTRUCTIONS; Start 09/25/16 at 16:30; Stop 10/03/16 at 12:32; Status DC Sodium Chloride 1,000 ml @ 25 mls/hr Q24H IV Last administered on 10/05/16 09 :53; Start 09/25/16 at 16:25 Hydromorphone HCl 30 ml @ 0 mls/hr CONT PRN PRN IV PROTOCOL Last administered on 09/30/16 05:32; Start 09/25/16 at 16:30; Stop 10/02/16 at 12:29; Status DC Ondansetron HCl (Zofran) 4 mg PRN Q6HRS PRN IV NAUESA, 1ST CHOICE Last administered on 10/04/16 23:09; Start 09/25/16 at 16:30 Fentanyl Citrate (Fentanyl 2ml Vial) 100 mcg STK-MED ONCE .ROUTE ; Start at 17:14; Stop 09/25/16 at 17:15; Status DC Acetaminophen (Tylenol) 325 mg PRN Q6HRS PRN DE fever >100.4 Last administered on 10/03/16 23:26; Start 09/26/16 at 14:30 Bisacodyl (Dulcolax Supp) 10 mg PRN DAILY PRN DE CONSTIPATION Last administered on 09/30/16 20:16; Start 09/26/16 at 14:30 Famotidine (Pepcid) 20 mg BID IVP Last administered on 10/05/16 21:17; Start 09/26/16 at 21:00 Insulin Aspart (NovoLOG) 0-5 UNITS TIDWMEALS SQ Last administered on 09/29/16 12:19; Start 09/26/16 at 17:00; Stop 10/02/16 at 12:29; Status DC Dextrose (Dextrose 50%-Water Syringe) 12.5 gm PRN Q15MIN PRN IV SEE COMMENTS; Start 09/26/16 at 15:00; Status Cancel Saliva Substitute (Biotene Moisturizing Mouth) 2 spray PRN Q15MIN PRN PO DRY MOUTH Last administered on 09/28/16 22:06; Start 09/28/16 at 14:00 Sodium Chloride 1,000 ml @ 75 mls/hr 1X ONCE IV Last administered on 14:45; Start 09/29/16 at 14:45; Stop 09/30/16 at 04:04; Status DC Artificial Tears (Artificial Tears) 1 drop PRN Q15MIN PRN OU DRY EYE Last administered on 10/01/16 23:08; Start 10/01/16 at 10:30 Info 1 each PRN DAILY PRN MC SEE COMMENTS Last administered on 10/05/16 11:36 ; Start 10/01/16 at 12:45 Sodium Chloride 90 meq/Potassium Chloride 50 meq/ Potassium Phosphate 13.6 mmol/ Magnesium Sulfate 10 meq/ Calcium Gluconate 10 meq/ Multivitamins 10 ml/Chromium / Copper/Manganese/ Seleni/Zn 1 ml/ Total Parenteral Nutrition/Amino Acids/ Dextrose/ Fat Emulsion Intravenous 1,200 ml @ 50 mls/hr TPN CONT IV Last administered on 10/01/16 23:12; Start 10/01/16 at 22:00; Stop 10/02/16 at 21:59 ; Status DC Sodium Phosphate 15 mmol/Dextrose 255 ml @ 63.75 mls/ hr 1X ONCE IV Last administered on 10/01/16 17:30; Start 10/01/16 at 17:30; Stop 10/01/16 at 21:29 ; Status DC Aspirin (Ecotrin) 81 mg DAILY PO Last administered on 10/05/16 09:28; Start at 13:00 Atorvastatin Calcium (Lipitor) 20 mg HS PO Last administered on 10/05/16 21:15 ; Start 10/02/16 at 21:00 Buspirone HCl (Buspar) 10 mg BID PO Last administered on 10/05/16 21:16; Start 10/02/16 at 13:00 Senna/Docusate Sodium (Senna Plus) 1 tab DAILY PO Last administered on 09:51; Start 10/02/16 at 13:00 Citalopram Hydrobromide (CeleXA) 40 mg DAILY PO Last administered on 10/05/16 09:28; Start 10/03/16 at 09:00 Pregabalin (Lyrica) 150 mg BID PO Last administered on 10/05/16 21:15; Start 10/02/16 at 13:00 Morphine Sulfate 2 mg PRN Q2HR PRN IV PAIN; Start 10/02/16 at 12:30; Stop 10/03 at 15:21; Status DC Morphine Sulfate 4 mg PRN Q2HR PRN IV PAIN Last administered on 10/04/16 13:13 ; Start 10/02/16 at 12:30; Stop 10/04/16 at 15:59; Status DC Tramadol HCl (Ultram) 50 mg PRN Q6HRS PRN PO MILD TO MODERATE PAIN Last administered on 10/04/16 23:09; Start 10/02/16 at 12:30 Acetaminophen/ Hydrocodone Bitart (Lortab 5/325) 1 tab PRN Q4HRS PRN PO MODERATE TO SEVERE PAIN Last administered on 10/05/16 09:50; Start 10/02/16 at 12:30 Insulin Aspart (NovoLOG) 0-9 UNITS TIDWMEALS SQ Last administered on 10/05/16 17:23; Start 10/02/16 at 13:00 Dextrose (Dextrose 50%-Water Syringe) 12.5 gm PRN Q15MIN PRN IV SEE COMMENTS; Start 10/02/16 at 12:30 Sodium Chloride 90 meq/Potassium Chloride 50 meq/ Potassium Phosphate 13.6 mmol/ Magnesium Sulfate 10 meq/ Calcium Gluconate 10 meq/ Multivitamins 10 ml/Chromium / Copper/Manganese/ Seleni/Zn 1 ml/ Total Parenteral Nutrition/Amino Acids/ Dextrose/ Fat Emulsion Intravenous 1,200 ml @ 50 mls/hr TPN CONT IV Last administered on 10/02/16 23:55; Start 10/02/16 at 22:00; Stop 10/03/16 at 21:59 ; Status DC Insulin Detemir (Levemir) 10 units QHS SQ Last administered on 10/05/16 21:26 ; Start 10/03/16 at 21:00 Sodium Chloride 90 meq/Potassium Chloride 50 meq/ Potassium Phosphate 13.6 mmol/ Magnesium Sulfate 10 meq/ Calcium Gluconate 10 meq/ Multivitamins 10 ml/Chromium / Copper/Manganese/ Seleni/Zn 1 ml/ Total Parenteral Nutrition/Amino Acids/ Dextrose/ Fat Emulsion Intravenous 1,200 ml @ 50 mls/hr TPN CONT IV Last administered on 10/03/16 23:27; Start 10/03/16 at 22:00; Stop 10/04/16 at 21:59 ; Status DC Morphine Sulfate 2 mg PRN Q2HR PRN IV PAIN; Start 10/03/16 at 15:21; Stop 10/04 at 07:52; Status DC Morphine Sulfate 2 mg PRN Q2HR PRN IV PAIN Last administered on 10/06/16 05:07 ; Start 10/04/16 at 07:51 Sodium Chloride 90 meq/Potassium Chloride 50 meq/ Potassium Phosphate 13.6 mmol/ Magnesium Sulfate 10 meq/ Calcium Gluconate 10 meq/ Multivitamins 10 ml/Chromium / Copper/Manganese/ Seleni/Zn 1 ml/ Total Parenteral Nutrition/Amino Acids/ Dextrose/ Fat Emulsion Intravenous 1,200 ml @ 50 mls/hr TPN CONT IV Last administered on 10/04/16 21:08; Start 10/04/16 at 22:00; Stop 10/05/16 at 21:59 ; Status DC Ceftriaxone Sodium 1 gm/ Sodium Chloride 50 ml @ 100 mls/hr Q24H IV Last administered on 10/05/16 16:10; Start 10/04/16 at 16:00 Acetaminophen (Tylenol) 325 mg PRN Q6HRS PRN PO MILD PAIN / TEMP Last administered on 10/05/16 04:05; Start 10/05/16 at 04:00 Sodium Chloride 90 meq/Potassium Chloride 50 meq/ Potassium Phosphate 13.6 mmol/ Magnesium Sulfate 10 meq/ Calcium Gluconate 10 meq/ Multivitamins 10 ml/Chromium / Copper/Manganese/ Seleni/Zn 1 ml/ Total Parenteral Nutrition/Amino Acids/ Dextrose/ Fat Emulsion Intravenous 1,200 ml @ 50 mls/hr TPN CONT IV Last administered on 10/05/16 21:50; Start 10/05/16 at 22:00; Stop 10/06/16 at 21:59 Active Scripts Active Senna S Tablet (Sennosides/Docusate Sodium) 1 Each Tablet 1 Each PO DAILY Reported Lexapro (Escitalopram Oxalate) 20 Mg Tablet 1 Tab PO DAILY Lisinopril-Hctz 20-12.5 Mg Tab (Lisinopril/Hydrochlorothiazide) 1 Each Tablet 1 Tab PO DAILY Lipitor (Atorvastatin Calcium) 20 Mg Tablet 20 Mg PO HS Ambien (Zolpidem Tartrate) 5 Mg Tablet 1 Tab PO QHS Lyrica (Pregabalin) 150 Mg Capsule 150 Mg PO BID 30 Days Buspirone Hcl 10 Mg Tablet 10 Mg PO BID Aspir 81 (Aspirin) 81 Mg Tablet.dr 1 Tab PO DAILY Vitals/I & O Vital Sign - Last 24 Hours 10/05/16 10/05/16 10/05/16 10/05/16 09:50 10:50 11:00 12:13 Temp 98.3 98.3 Pulse 78 Resp 12 12 18 12 B/P (MAP) 109/77 (88) Pulse Ox 94 95 97 94 O2 Delivery Room Air Room Air Room Air Room Air 10/05/16 10/05/16 10/05/16 10/05/16 15:00 19:00 20:00 23:00 Temp 100.1 102.0 101.3 100.1 102.0 101.3 Pulse 86 86 80 Resp 18 18 18 B/P (MAP) 140/45 (76) 94/49 (64) 101/43 (62) Pulse Ox 98 97 99 O2 Delivery Room Air Room Air Room Air Room Air 10/06/16 10/06/16 10/06/16 10/06/16 03:00 05:07 05:30 07:00 Temp 99.7 98.8 99.7 98.8 Pulse 83 82 Resp 18 B/P (MAP) 103/50 (67) 115/50 (71) Pulse Ox 96 97 99 99 O2 Delivery Room Air Room Air Room Air Nasal Cannula O2 Flow Rate 2.0 Intake and Output 10/05/16 10/05/16 10/06/16 15:00 23:00 07:00 Intake Total 300 ml Output Total 150 ml Balance 150 ml JAIRON OSMAN MD Oct 06, 2016 08:58
[2016-10-06] MEDS: PREGABALIN 75 MG CAPSULE PO SCH (08:59)
[2016-10-06] MEDS: ASPIRIN ENTERIC COATED 81 MG TABLET.DR. PO SCH (08:59)
[2016-10-06] MEDS: CITALOPRAM 20 MG TABLET. PO SCH (08:59)
[2016-10-06] MEDS: INSULIN ASPART 300 UNITS/3 ML INSULN.PEN SQ SCH ×2 (09:09→12:48)
--- NOTE | 2016-10-06 09:49 | PDOC ---
PROGRESS NOTES Chief Complaint Chief Complaint Abdominal pain, recurrent SBO 1. 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 Pain control for acute abd pain: much better 3. Nutrition: malnutirtion, still on TPN, start calorie count, may need to liberalize DM2 diet, 4. HTN/HLD: well controlled; 5. CAD: hx CABG. stable 6. DM2: worse since surgery. monitor with ISS 7. Hypokalemia/hyperkalemia 8. Hyponatremia, resolved wheelchair bound History of Present Illness History of Present Illness doing better, planning to SNU, 5 family members in room, and have differing opinions Doing well/better family wants SNU near [facility] area - contacted thursday PAtient herself says "If no SNU near [facility] that can do my nutrition (TPN), I will put my foot down and tell them [place] [facility]". I encouraged Prov place Vitals Vitals Vital Signs Date Time Temp Pulse Resp B/P (MAP) Pulse Ox O2 Delivery O2 Flow Rate FiO2 10/06/16 07:00 98.8 82 18 115/50 (71) 99 Nasal Cannula 2.0 98.8 Physical Exam General: Alert, Oriented X3 Heart: Normal S1, Normal S2 Lungs: Clear, Other (no r/r/w) Abdomen: Soft, Other (gtube to drainage, incision c/d/i, no erythema, reba drain with drainage) Extremities: No edema Skin: No rashes, No breakdown Labs LABS Laboratory Tests Test 10/05/16 11:29 10/05/16 16:16 10/05/16 20:46 10/06/16 05:30 Glucose (Fingerstick) 332 mg/dL (70-99) 318 mg/dL (70-99) 250 mg/dL (70-99) Sodium Level 132 mmol/L (136-145) Potassium Level 4.6 mmol/L (3.5-5.1) Chloride Level 97 mmol/L (98-107) Carbon Dioxide Level 25 mmol/L (21-32) Anion Gap 10 (6-14) Blood Urea Nitrogen 15 mg/dL (7-20) Creatinine 0.9 mg/dL (0.6-1.0) Estimated GFR (Cockcroft-Gault) 73.9 BUN/Creatinine Ratio 17 (6-20) Glucose Level 277 mg/dL (70-99) Calcium Level 8.4 mg/dL (8.5-10.1) Phosphorus Level 3.1 mg/dL (2.6-4.7) Magnesium Level 1.8 mg/dL (1.8-2.4) Total Bilirubin 0.4 mg/dL (0.2-1.0) Aspartate Amino Transf (AST/SGOT) 26 U/L (15-37) Alanine Aminotransferase (ALT/SGPT) 26 U/L (14-59) Alkaline Phosphatase 175 U/L (46-116) Total Protein 6.8 g/dL (6.4-8.2) Albumin 1.5 g/dL (3.4-5.0) Albumin/Globulin Ratio 0.3 (1.0-1.7) Test 10/06/16 07:54 Glucose (Fingerstick) 291 mg/dL (70-99) Review of Systems Review of Systems no n.v.d poor PO intake Assessment and Plan Assessmemt and Plan Problems Medical Problems: (1) Abdominal pain Status: Acute (2) Nausea and vomiting Status: Acute Problems: Comment Review of Relevant I have reviewed the following items anita (where applicable) has been applied. Labs Laboratory Tests Test 10/04/16 11:02 10/04/16 16:15 10/04/16 19:22 10/04/16 22:30 Glucose (Fingerstick) 233 mg/dL (70-99) 244 mg/dL (70-99) 252 mg/dL (70-99) Lactic Acid Level 1.1 mmol/L (0.4-2.0) Test 10/05/16 07:18 10/05/16 11:29 10/05/16 16:16 10/05/16 20:46 Glucose (Fingerstick) 328 mg/dL (70-99) 332 mg/dL (70-99) 318 mg/dL (70-99) 250 mg/dL (70-99) Test 10/06/16 05:30 10/06/16 07:54 Sodium Level 132 mmol/L (136-145) Potassium Level 4.6 mmol/L (3.5-5.1) Chloride Level 97 mmol/L (98-107) Carbon Dioxide Level 25 mmol/L (21-32) Anion Gap 10 (6-14) Blood Urea Nitrogen 15 mg/dL (7-20) Creatinine 0.9 mg/dL (0.6-1.0) Estimated GFR (Cockcroft-Gault) 73.9 BUN/Creatinine Ratio 17 (6-20) Glucose Level 277 mg/dL (70-99) Calcium Level 8.4 mg/dL (8.5-10.1) Phosphorus Level 3.1 mg/dL (2.6-4.7) Magnesium Level 1.8 mg/dL (1.8-2.4) Total Bilirubin 0.4 mg/dL (0.2-1.0) Aspartate Amino Transf (AST/SGOT) 26 U/L (15-37) Alanine Aminotransferase (ALT/SGPT) 26 U/L (14-59) Alkaline Phosphatase 175 U/L (46-116) Total Protein 6.8 g/dL (6.4-8.2) Albumin 1.5 g/dL (3.4-5.0) Albumin/Globulin Ratio 0.3 (1.0-1.7) Glucose (Fingerstick) 291 mg/dL (70-99) Laboratory Tests Test 10/05/16 11:29 10/05/16 16:16 10/05/16 20:46 10/06/16 05:30 Glucose (Fingerstick) 332 mg/dL (70-99) 318 mg/dL (70-99) 250 mg/dL (70-99) Sodium Level 132 mmol/L (136-145) Potassium Level 4.6 mmol/L (3.5-5.1) Chloride Level 97 mmol/L (98-107) Carbon Dioxide Level 25 mmol/L (21-32) Anion Gap 10 (6-14) Blood Urea Nitrogen 15 mg/dL (7-20) Creatinine 0.9 mg/dL (0.6-1.0) Estimated GFR (Cockcroft-Gault) 73.9 BUN/Creatinine Ratio 17 (6-20) Glucose Level 277 mg/dL (70-99) Calcium Level 8.4 mg/dL (8.5-10.1) Phosphorus Level 3.1 mg/dL (2.6-4.7) Magnesium Level 1.8 mg/dL (1.8-2.4) Total Bilirubin 0.4 mg/dL (0.2-1.0) Aspartate Amino Transf (AST/SGOT) 26 U/L (15-37) Alanine Aminotransferase (ALT/SGPT) 26 U/L (14-59) Alkaline Phosphatase 175 U/L (46-116) Total Protein 6.8 g/dL (6.4-8.2) Albumin 1.5 g/dL (3.4-5.0) Albumin/Globulin Ratio 0.3 (1.0-1.7) Test 10/06/16 07:54 Glucose (Fingerstick) 291 mg/dL (70-99) Microbiology 10/04/16 Blood Culture - Preliminary, Resulted NO GROWTH AFTER 1 DAY Medications Current Medications Ondansetron HCl (Zofran) 4 mg PRN Q8HRS PRN IV NAUSEA/VOMITING Last administered on 09/19/16 02:59; Start 09/18/16 at 22:45; Stop 09/19/16 at 22:44 ; Status DC Fentanyl Citrate (Fentanyl 2ml Vial) 50 mcg PRN Q2HR PRN IV PAIN Last administered on 09/19/16 08:14; Start 09/18/16 at 22:45; Stop 09/19/16 at 22:44 ; Status DC Sodium Chloride 1,000 ml @ 125 mls/hr Q8H IV Last administered on 09/19/16 11 :01; Start 09/18/16 at 22:45; Stop 09/19/16 at 22:44; Status DC Hydralazine HCl (Apresoline) 10 mg PRN Q4HRS PRN IVP ELEVATED BP, SEE COMMENTS Last administered on 09/19/16 01:55; Start 09/19/16 at 01:45; Stop 09/19/16 at 12:24; Status DC Potassium Chloride 30 meq/ Sodium Chloride 1,015 ml @ 125 mls/hr 1X ONCE IV Last administered on 09/19/16 03:07; Start 09/19/16 at 01:45; Stop 09/19/16 at 09:52; Status DC Al Hydroxide/Mg Hydroxide (Mylanta Plus Xs) 15 ml 1X ONCE PO Last administered on 09/19/16 05:50; Start 09/19/16 at 06:00; Stop 09/19/16 at 06:01 ; Status DC Famotidine (Pepcid) 20 mg BID IVP Last administered on 09/24/16 09:01; Start 09/19/16 at 09:00; Stop 09/24/16 at 13:12; Status DC Acetaminophen (Tylenol) 650 mg PRN Q6HRS PRN PO FEVER Last administered on 09/25 08:43; Start 09/19/16 at 09:30; Stop 09/26/16 at 14:20; Status DC Ondansetron HCl (Zofran) 4 mg PRN Q6HRS PRN IV NAUSEA/VOMITING Last administered on 09/25/16 05:35; Start 09/19/16 at 09:30; Stop 09/27/16 at 12:26 ; Status DC Morphine Sulfate 2 mg PRN Q2HR PRN IV PAIN; Start 09/19/16 at 09:30; Stop 09/19 at 09:56; Status DC Tramadol HCl (Ultram) 50 mg PRN Q6HRS PRN PO PAIN Last administered on 09:49; Start 09/19/16 at 09:30; Stop 09/26/16 at 14:20; Status DC Hydralazine HCl (Apresoline) 10 mg PRN Q4HRS PRN IVP ELEVATED BP, SEE COMMENTS Last administered on 09/25/16 17:24; Start 09/19/16 at 09:30 Docusate Sodium (Colace) 100 mg PRN DAILY PRN PO CONSTIPATION Last administered on 09/25/16 08:43; Start 09/19/16 at 09:30; Stop 09/26/16 at 14:20 ; Status DC Barium Sulfate (Liquid E-Z Paque) 355 ml 1X ONCE PO ; Start 09/19/16 at 10:00; Stop 09/19/16 at 10:01; Status DC Barium Sulfate (Liquid E-Z Paque) 355 ml 1X ONCE PO ; Start 09/19/16 at 10:00; Stop 09/19/16 at 10:01; Status DC Morphine Sulfate 2 mg PRN Q2HR PRN IV PAIN Last administered on 09/24/16 09:09 ; Start 09/19/16 at 10:00; Stop 09/24/16 at 13:12; Status DC Throat Lozenges (Chloraseptic) 1 spray PRN Q2HR PRN PO SORE THROAT Last administered on 09/19/16 11:01; Start 09/19/16 at 10:15 Potassium Chloride/Sodium Chloride 1,000 ml @ 100 mls/hr Q10H IV Last administered on 09/20/16 01:57; Start 09/19/16 at 12:30; Stop 09/20/16 at 08:19 ; Status DC Heparin Sodium (Porcine) (Heparin Sq) 5,000 unit Q8HRS SQ Last administered on 10/06/16 05:42; Start 09/19/16 at 14:00 Amino Acids/ Glycerin/ Electrolytes 1,000 ml @ 75 mls/hr [id number] IV Last administered on 10/01/16 11:10; Start 09/20/16 at 08:30; Stop 10/01/16 at 21:59 ; Status DC Dextrose (Dextrose 50%-Water Syringe) 25 gm PRN Q15MIN PRN IV SEE COMMENTS Last administered on 09/20/16 11:52; Start 09/20/16 at 11:45; Stop 09/29/16 at 13:46; Status DC Iohexol (Omnipaque 350 Mg/ml) 400 ml 1X ONCE PO Last administered on 12:37; Start 09/20/16 at 12:15; Stop 09/20/16 at 12:16; Status DC Levofloxacin/ Dextrose 100 ml @ 100 mls/hr 1X PREOP PRN IV PRIOR TO PROCEDURE ; Start 09/21/16 at 17:30; Stop 09/22/16 at 18:00; Status DC Ondansetron HCl (Zofran) 4 mg PRN Q6HRS PRN IV NAUSEA/VOMITING; Start 09/22/16 at 07:45; Stop 09/23/16 at 07:44; Status DC Fentanyl Citrate (Fentanyl 2ml Vial) 25 mcg PRN Q5MIN PRN IV MILD PAIN; Start 09/22/16 at 07:45; Stop 09/23/16 at 07:44; Status DC Fentanyl Citrate (Fentanyl 2ml Vial) 50 mcg PRN Q5MIN PRN IV MODERATE PAIN; Start 09/22/16 at 07:45; Stop 09/23/16 at 07:44; Status DC Morphine Sulfate 1 mg PRN Q10MIN PRN IV SEVERE PAIN; Start 09/22/16 at 07:45; Stop 09/23/16 at 07:44; Status DC Ringer's Solution 1,000 ml @ 30 mls/hr Q24H IV ; Start 09/22/16 at 07:45; Stop 09/22/16 at 19:44; Status DC Lidocaine HCl 2 ml PRN 1X PRN ID PRIOR TO IV START; Start 09/22/16 at 07:45; Stop 09/23/16 at 07:44; Status DC Hydromorphone HCl (Dilaudid) 0.5 mg PRN Q10MIN PRN IV SEV PAIN, Second choice; Start 09/22/16 at 07:45; Stop 09/23/16 at 07:44; Status DC Prochlorperazine Edisylate (Compazine) 5 mg PACU PRN PRN IV NAUSEA, MRX1; Start 09/22/16 at 07:45; Stop 09/23/16 at 07:44; Status DC Lorazepam (Ativan) 0.5 mg 1X ONCE IV Last administered on 09/22/16 12:08; Start 09/22/16 at 12:00; Stop 09/22/16 at 12:03; Status DC Pantoprazole Sodium (Protonix) 40 mg DAILYAC PO Last administered on 09/25/16 08:43; Start 09/24/16 at 13:15; Stop 09/26/16 at 14:20; Status DC Levofloxacin/ Dextrose 100 ml @ 100 mls/hr 1X PREOP ONCE IV Last administered on 09/25/16 13:32; Start 09/25/16 at 13:30; Stop 09/25/16 at 14:29 ; Status DC Sevoflurane (Ultane) 60 ml STK-MED ONCE IH ; Start 09/25/16 at 13:40; Stop 09/25 at 13:53; Status DC Fentanyl Citrate (Fentanyl 2ml Vial) 100 mcg STK-MED ONCE .ROUTE ; Start at 13:41; Stop 09/25/16 at 13:53; Status DC Glycopyrrolate (Robinul) 1 mg STK-MED ONCE .ROUTE ; Start 09/25/16 at 13:41; Stop 09/25/16 at 13:53; Status DC Propofol 20 ml @ As Directed STK-MED ONCE IV ; Start 09/25/16 at 13:41; Stop at 13:53; Status DC Ondansetron HCl (Zofran) 4 mg STK-MED ONCE .ROUTE ; Start 09/25/16 at 13:42; Stop 09/25/16 at 13:53; Status DC Dexamethasone Sodium Phosphate (Decadron) 20 mg STK-MED ONCE .ROUTE ; Start at 13:42; Stop 09/25/16 at 13:53; Status DC Lidocaine HCl (Lidocaine Pf 2% Vial) 5 ml STK-MED ONCE .ROUTE ; Start 09/25/16 at 13:42; Stop 09/25/16 at 13:53; Status DC Ondansetron HCl (Zofran) 4 mg PRN Q6HRS PRN IV NAUSEA/VOMITING; Start 09/25/16 at 14:00; Stop 09/26/16 at 13:59; Status DC Fentanyl Citrate (Fentanyl 2ml Vial) 25 mcg PRN Q5MIN PRN IV MILD PAIN; Start 09/25/16 at 14:00; Stop 09/26/16 at 13:59; Status DC Fentanyl Citrate (Fentanyl 2ml Vial) 50 mcg PRN Q5MIN PRN IV MODERATE PAIN Last administered on 09/25/16t 17:31; Start 09/25/16 at 14:00; Stop 09/26/16 at 13:59; Status DC Morphine Sulfate 1 mg PRN Q10MIN PRN IV SEVERE PAIN; Start 09/25/16 at 14:00; Stop 09/26/16 at 13:59; Status DC Ringer's Solution 1,000 ml @ 0 mls/hr Q0M IV ; Start 09/25/16 at 13:53; Stop at 01:52; Status DC Lidocaine HCl 2 ml PRN 1X PRN ID PRIOR TO IV START; Start 09/25/16 at 14:00; Stop 09/26/16 at 13:59; Status DC Hydromorphone HCl (Dilaudid) 0.5 mg PRN Q10MIN PRN IV SEV PAIN, Second choice; Start 09/25/16 at 14:00; Stop 09/26/16 at 13:59; Status DC Prochlorperazine Edisylate (Compazine) 5 mg PACU PRN PRN IV NAUSEA, MRX1; Start 09/25/16 at 14:00; Stop 09/26/16 at 13:59; Status DC Fentanyl Citrate (Fentanyl 2ml Vial) 100 mcg STK-MED ONCE .ROUTE ; Start at 14:08; Stop 09/25/16 at 14:09; Status DC Ringer's Solution 1,000 ml @ 125 mls/hr Q8H IV ; Start 09/25/16 at 14:09; Stop 09/26/16 at 02:08; Status DC Fentanyl Citrate (Fentanyl 2ml Vial) 50 mcg PRN Q5MIN PRN IV pain Last administered on 09/25/16t 14:15; Start 09/25/16 at 14:15; Stop 09/26/16 at 14:20 ; Status DC Succinylcholine Chloride (Anectine) 200 mg STK-MED ONCE .ROUTE ; Start 09/25/16 at 14:20; Stop 09/25/16 at 14:21; Status DC Fentanyl Citrate (Fentanyl 2ml Vial) 100 mcg STK-MED ONCE .ROUTE ; Start at 14:54; Stop 09/25/16 at 14:55; Status DC Enoxaparin Sodium (Lovenox 40mg Syringe) 40 mg Q24H SQ ; Start 09/25/16 at 18:00 ; Stop 09/26/16 at 11:03; Status DC Sodium Chloride (Normal Saline Flush) 3 ml QSHIFT PRN IV AFTER MEDS AND BLOOD DRAWS; Start 09/25/16 at 16:30 Ringer's Solution 1,000 ml @ 100 mls/hr Q10H IV ; Start 09/25/16 at 16:25; Stop 09/25/16 at 23:51; Status DC Naloxone HCl (Narcan) 0.4 mg PRN Q2MIN PRN IV SEE INSTRUCTIONS; Start 09/25/16 at 16:30; Stop 10/03/16 at 12:32; Status DC Sodium Chloride 1,000 ml @ 25 mls/hr Q24H IV Last administered on 10/05/16t 09 :53; Start 09/25/16 at 16:25 Hydromorphone HCl 30 ml @ 0 mls/hr CONT PRN PRN IV PROTOCOL Last administered on 09/30/16 05:32; Start 09/25/16 at 16:30; Stop 10/02/16 at 12:29; Status DC Ondansetron HCl (Zofran) 4 mg PRN Q6HRS PRN IV NAUESA, 1ST CHOICE Last administered on 10/04/16 23:09; Start 09/25/16 at 16:30 Fentanyl Citrate (Fentanyl 2ml Vial) 100 mcg STK-MED ONCE .ROUTE ; Start at 17:14; Stop 09/25/16 at 17:15; Status DC Acetaminophen (Tylenol) 325 mg PRN Q6HRS PRN AR fever >100.4 Last administered on 10/03/16 23:26; Start 09/26/16 at 14:30 Bisacodyl (Dulcolax Supp) 10 mg PRN DAILY PRN AR CONSTIPATION Last administered on 09/30/16 20:16; Start 09/26/16 at 14:30 Famotidine (Pepcid) 20 mg BID IVP Last administered on 10/06/16 08:58; Start 09/26/16 at 21:00 Insulin Aspart (NovoLOG) 0-5 UNITS TIDWMEALS SQ Last administered on 09/29/16 12:19; Start 09/26/16 at 17:00; Stop 10/02/16 at 12:29; Status DC Dextrose (Dextrose 50%-Water Syringe) 12.5 gm PRN Q15MIN PRN IV SEE COMMENTS; Start 09/26/16 at 15:00; Status Cancel Saliva Substitute (Biotene Moisturizing Mouth) 2 spray PRN Q15MIN PRN PO DRY MOUTH Last administered on 09/28/16 22:06; Start 09/28/16 at 14:00 Sodium Chloride 1,000 ml @ 75 mls/hr 1X ONCE IV Last administered on 14:45; Start 09/29/16 at 14:45; Stop 09/30/16 at 04:04; Status DC Artificial Tears (Artificial Tears) 1 drop PRN Q15MIN PRN OU DRY EYE Last administered on 10/01/16 23:08; Start 10/01/16 at 10:30 Info 1 each PRN DAILY PRN MC SEE COMMENTS Last administered on 10/05/16 11:36 ; Start 10/01/16 at 12:45 Sodium Chloride 90 meq/Potassium Chloride 50 meq/ Potassium Phosphate 13.6 mmol/ Magnesium Sulfate 10 meq/ Calcium Gluconate 10 meq/ Multivitamins 10 ml/Chromium / Copper/Manganese/ Seleni/Zn 1 ml/ Total Parenteral Nutrition/Amino Acids/ Dextrose/ Fat Emulsion Intravenous 1,200 ml @ 50 mls/hr TPN CONT IV Last administered on 10/01/16 23:12; Start 10/01/16 at 22:00; Stop 10/02/16 at 21:59 ; Status DC Sodium Phosphate 15 mmol/Dextrose 255 ml @ 63.75 mls/ hr 1X ONCE IV Last administered on 10/01/16 17:30; Start 10/01/16 at 17:30; Stop 10/01/16 at 21:29 ; Status DC Aspirin (Ecotrin) 81 mg DAILY PO Last administered on 10/06/16 08:59; Start at 13:00 Atorvastatin Calcium (Lipitor) 20 mg HS PO Last administered on 10/05/16 21:15 ; Start 10/02/16 at 21:00 Buspirone HCl (Buspar) 10 mg BID PO Last administered on 10/06/16 08:58; Start 10/02/16 at 13:00 Senna/Docusate Sodium (Senna Plus) 1 tab DAILY PO Last administered on 08:58; Start 10/02/16 at 13:00 Citalopram Hydrobromide (CeleXA) 40 mg DAILY PO Last administered on 10/06/16 08:59; Start 10/03/16 at 09:00 Pregabalin (Lyrica) 150 mg BID PO Last administered on 10/06/16 08:59; Start 10/02/16 at 13:00 Morphine Sulfate 2 mg PRN Q2HR PRN IV PAIN; Start 10/02/16 at 12:30; Stop 10/03 at 15:21; Status DC Morphine Sulfate 4 mg PRN Q2HR PRN IV PAIN Last administered on 10/04/16 13:13 ; Start 10/02/16 at 12:30; Stop 10/04/16 at 15:59; Status DC Tramadol HCl (Ultram) 50 mg PRN Q6HRS PRN PO MILD TO MODERATE PAIN Last administered on 10/04/16 23:09; Start 10/02/16 at 12:30 Acetaminophen/ Hydrocodone Bitart (Lortab 5/325) 1 tab PRN Q4HRS PRN PO MODERATE TO SEVERE PAIN Last administered on 10/05/16 09:50; Start 10/02/16 at 12:30 Insulin Aspart (NovoLOG) 0-9 UNITS TIDWMEALS SQ Last administered on 10/06/16 09:09; Start 10/02/16 at 13:00 Dextrose (Dextrose 50%-Water Syringe) 12.5 gm PRN Q15MIN PRN IV SEE COMMENTS; Start 10/02/16 at 12:30 Sodium Chloride 90 meq/Potassium Chloride 50 meq/ Potassium Phosphate 13.6 mmol/ Magnesium Sulfate 10 meq/ Calcium Gluconate 10 meq/ Multivitamins 10 ml/Chromium / Copper/Manganese/ Seleni/Zn 1 ml/ Total Parenteral Nutrition/Amino Acids/ Dextrose/ Fat Emulsion Intravenous 1,200 ml @ 50 mls/hr TPN CONT IV Last administered on 10/02/16 23:55; Start 10/02/16 at 22:00; Stop 10/03/16 at 21:59 ; Status DC Insulin Detemir (Levemir) 10 units QHS SQ Last administered on 10/05/16 21:26 ; Start 10/03/16 at 21:00 Sodium Chloride 90 meq/Potassium Chloride 50 meq/ Potassium Phosphate 13.6 mmol/ Magnesium Sulfate 10 meq/ Calcium Gluconate 10 meq/ Multivitamins 10 ml/Chromium / Copper/Manganese/ Seleni/Zn 1 ml/ Total Parenteral Nutrition/Amino Acids/ Dextrose/ Fat Emulsion Intravenous 1,200 ml @ 50 mls/hr TPN CONT IV Last administered on 10/03/16 23:27; Start 10/03/16 at 22:00; Stop 10/04/16 at 21:59 ; Status DC Morphine Sulfate 2 mg PRN Q2HR PRN IV PAIN; Start 10/03/16 at 15:21; Stop 10/04 at 07:52; Status DC Morphine Sulfate 2 mg PRN Q2HR PRN IV PAIN Last administered on 10/06/16 05:07 ; Start 10/04/16 at 07:51 Sodium Chloride 90 meq/Potassium Chloride 50 meq/ Potassium Phosphate 13.6 mmol/ Magnesium Sulfate 10 meq/ Calcium Gluconate 10 meq/ Multivitamins 10 ml/Chromium / Copper/Manganese/ Seleni/Zn 1 ml/ Total Parenteral Nutrition/Amino Acids/ Dextrose/ Fat Emulsion Intravenous 1,200 ml @ 50 mls/hr TPN CONT IV Last administered on 10/04/16 21:08; Start 10/04/16 at 22:00; Stop 10/05/16 at 21:59 ; Status DC Ceftriaxone Sodium 1 gm/ Sodium Chloride 50 ml @ 100 mls/hr Q24H IV Last administered on 10/05/16 16:10; Start 10/04/16 at 16:00 Acetaminophen (Tylenol) 325 mg PRN Q6HRS PRN PO MILD PAIN / TEMP Last administered on 10/05/16 04:05; Start 10/05/16 at 04:00 Sodium Chloride 90 meq/Potassium Chloride 50 meq/ Potassium Phosphate 13.6 mmol/ Magnesium Sulfate 10 meq/ Calcium Gluconate 10 meq/ Multivitamins 10 ml/Chromium / Copper/Manganese/ Seleni/Zn 1 ml/ Total Parenteral Nutrition/Amino Acids/ Dextrose/ Fat Emulsion Intravenous 1,200 ml @ 50 mls/hr TPN CONT IV Last administered on 10/05/16 21:50; Start 10/05/16 at 22:00; Stop 10/06/16 at 21:59 Active Scripts Active Senna S Tablet (Sennosides/Docusate Sodium) 1 Each Tablet 1 Each PO DAILY Reported Lexapro (Escitalopram Oxalate) 20 Mg Tablet 1 Tab PO DAILY Lisinopril-Hctz 20-12.5 Mg Tab (Lisinopril/Hydrochlorothiazide) 1 Each Tablet 1 Tab PO DAILY Lipitor (Atorvastatin Calcium) 20 Mg Tablet 20 Mg PO HS Ambien (Zolpidem Tartrate) 5 Mg Tablet 1 Tab PO QHS Lyrica (Pregabalin) 150 Mg Capsule 150 Mg PO BID 30 Days Buspirone Hcl 10 Mg Tablet 10 Mg PO BID Aspir 81 (Aspirin) 81 Mg Tablet. 1 Tab PO DAILY Vitals/I & O Vital Sign - Last 24 Hours 10/05/16 10/05/16 10/05/16 10/05/16 09:50 10:50 11:00 12:13 Temp 98.3 98.3 Pulse 78 Resp 12 12 18 12 B/P (MAP) 109/77 (88) Pulse Ox 94 95 97 94 O2 Delivery Room Air Room Air Room Air Room Air 10/05/16 10/05/16 10/05/16 10/05/16 15:00 19:00 20:00 23:00 Temp 100.1 102.0 101.3 100.1 102.0 101.3 Pulse 86 86 80 Resp 18 18 18 B/P (MAP) 140/45 (76) 94/49 (64) 101/43 (62) Pulse Ox 98 97 99 O2 Delivery Room Air Room Air Room Air Room Air 10/06/16 10/06/16 10/06/16 10/06/16 03:00 05:07 05:30 07:00 Temp 99.7 98.8 99.7 98.8 Pulse 83 82 Resp 18 B/P (MAP) 103/50 (67) 115/50 (71) Pulse Ox 96 97 99 99 O2 Delivery Room Air Room Air Room Air Nasal Cannula O2 Flow Rate 2.0 Intake and Output 10/05/16 10/05/16 10/06/16 15:00 23:00 07:00 Intake Total 300 ml Output Total 150 ml Balance 150 ml KENIA GIFFORD MD Oct 06, 2016 09:49
[2016-10-06] MEDS: ACETAMINOPHEN 325 MG TABLET. PO PRN (10:42)
[2016-10-06 11:00] VITALS: BP 105/48
[2016-10-06] MEDS ORDERED: MORPHINE ER 15 MG TABLET.ER PO SCH (11:00)
[2016-10-06] MEDS: BISACODYL 10 MG SUPP.RECT. PR PRN (11:01)
--- NOTE | 2016-10-06 11:23 | PDOC ---
Subjective: Subjective: Staff getting pt out of bed to shower before DC this afternoon. Objective: Objective: Last stool charted 10/01. Per RN - eating a little, also TPN. Tmax 102. Vital Signs: Vital Signs Date Time Temp Pulse Resp B/P (MAP) Pulse Ox O2 Delivery O2 Flow Rate FiO2 10/06/16 10:42 12 98 Room Air 10/06/16 07:00 98.8 82 115/50 (71) 2.0 98.8 Labs: Laboratory Tests Test 10/05/16 11:29 10/05/16 16:16 10/05/16 20:46 10/06/16 05:30 Glucose (Fingerstick) 332 mg/dL 318 mg/dL 250 mg/dL Sodium Level 132 mmol/L Potassium Level 4.6 mmol/L Chloride Level 97 mmol/L Carbon Dioxide Level 25 mmol/L Anion Gap 10 Blood Urea Nitrogen 15 mg/dL Creatinine 0.9 mg/dL Estimated GFR (Cockcroft-Gault) 73.9 BUN/Creatinine Ratio 17 Glucose Level 277 mg/dL Calcium Level 8.4 mg/dL Phosphorus Level 3.1 mg/dL Magnesium Level 1.8 mg/dL Total Bilirubin 0.4 mg/dL Aspartate Amino Transf (AST/SGOT) 26 U/L Alanine Aminotransferase (ALT/SGPT) 26 U/L Alkaline Phosphatase 175 U/L Total Protein 6.8 g/dL Albumin 1.5 g/dL Albumin/Globulin Ratio 0.3 Test 10/06/16 07:54 Glucose (Fingerstick) 291 mg/dL PE: GEN: NAD LUNGS: clear HEART: RRR ABD: soft, distention about the same, G tube, incision intact NEURO/PSYCH: A & O 3 A/P: Malignant SBO/metastatic malignancy s/p expl lap Fever -- DC per primary/surgery. Will add Miralax. EDMOND BAIRD Oct 06, 2016 11:23
[2016-10-06] MEDS ORDERED: POLYETHYLENE GLYCOL 3350 17 GM PACKET. PO PRN (11:30)
--- NOTE | 2016-10-06 12:36 | PDOC ---
SURGICAL PROGRESS NOTE Subjective Pt with c/o mild pain, she did have bowel fxn Vital Signs Vital Signs Date Time Temp Pulse Resp B/P (MAP) Pulse Ox O2 Delivery O2 Flow Rate FiO2 10/06/16 11:00 101.8 85 18 105/48 (67) 98 Room Air 101.8 10/06/16 07:00 2.0 I&O Intake and Output 10/06/16 07:00 Intake Total 300 ml Output Total 150 ml Balance 150 ml Intake Oral 300 ml Output Urine Total 150 ml # Voids 4 General: Alert, Cooperative, No acute distress Abdomen: Soft, No tenderness, Other (G-tube in place) Labs Laboratory Tests Test 10/04/16 16:15 10/04/16 19:22 10/04/16 22:30 10/05/16 07:18 Glucose (Fingerstick) 244 mg/dL (70-99) 252 mg/dL (70-99) 328 mg/dL (70-99) Lactic Acid Level 1.1 mmol/L (0.4-2.0) Test 10/05/16 11:29 10/05/16 16:16 10/05/16 20:46 10/06/16 05:30 Glucose (Fingerstick) 332 mg/dL (70-99) 318 mg/dL (70-99) 250 mg/dL (70-99) Sodium Level 132 mmol/L (136-145) Potassium Level 4.6 mmol/L (3.5-5.1) Chloride Level 97 mmol/L (98-107) Carbon Dioxide Level 25 mmol/L (21-32) Anion Gap 10 (6-14) Blood Urea Nitrogen 15 mg/dL (7-20) Creatinine 0.9 mg/dL (0.6-1.0) Estimated GFR (Cockcroft-Gault) 73.9 BUN/Creatinine Ratio 17 (6-20) Glucose Level 277 mg/dL (70-99) Calcium Level 8.4 mg/dL (8.5-10.1) Phosphorus Level 3.1 mg/dL (2.6-4.7) Magnesium Level 1.8 mg/dL (1.8-2.4) Total Bilirubin 0.4 mg/dL (0.2-1.0) Aspartate Amino Transf (AST/SGOT) 26 U/L (15-37) Alanine Aminotransferase (ALT/SGPT) 26 U/L (14-59) Alkaline Phosphatase 175 U/L (46-116) Total Protein 6.8 g/dL (6.4-8.2) Albumin 1.5 g/dL (3.4-5.0) Albumin/Globulin Ratio 0.3 (1.0-1.7) Test 10/06/16 07:54 10/06/16 12:02 Glucose (Fingerstick) 291 mg/dL (70-99) 293 mg/dL (70-99) Laboratory Tests Test 10/05/16 16:16 10/05/16 20:46 10/06/16 05:30 10/06/16 07:54 Glucose (Fingerstick) 318 mg/dL (70-99) 250 mg/dL (70-99) 291 mg/dL (70-99) Sodium Level 132 mmol/L (136-145) Potassium Level 4.6 mmol/L (3.5-5.1) Chloride Level 97 mmol/L (98-107) Carbon Dioxide Level 25 mmol/L (21-32) Anion Gap 10 (6-14) Blood Urea Nitrogen 15 mg/dL (7-20) Creatinine 0.9 mg/dL (0.6-1.0) Estimated GFR (Cockcroft-Gault) 73.9 BUN/Creatinine Ratio 17 (6-20) Glucose Level 277 mg/dL (70-99) Calcium Level 8.4 mg/dL (8.5-10.1) Phosphorus Level 3.1 mg/dL (2.6-4.7) Magnesium Level 1.8 mg/dL (1.8-2.4) Total Bilirubin 0.4 mg/dL (0.2-1.0) Aspartate Amino Transf (AST/SGOT) 26 U/L (15-37) Alanine Aminotransferase (ALT/SGPT) 26 U/L (14-59) Alkaline Phosphatase 175 U/L (46-116) Total Protein 6.8 g/dL (6.4-8.2) Albumin 1.5 g/dL (3.4-5.0) Albumin/Globulin Ratio 0.3 (1.0-1.7) Test 10/06/16 12:02 Glucose (Fingerstick) 293 mg/dL (70-99) Problem List Problems Medical Problems: (1) Abdominal pain Status: Acute (2) Nausea and vomiting Status: Acute Assessment/Plan s/p xlap d/w pt and pt's family (per her request) agree with [facility] and nutritional supplement Problems: MALATHI FREITAS MD Oct 06, 2016 12:36
[2016-10-06 15:00] VITALS: BP 101/46
== END 2016-10-06 18:07 | DRG 327 ==
LOC: ER 18:54 → 4 NORTH 21:44
PROVIDERS: ADMIT Internal Medicine; ATTEND Internal Medicine
PROC: 0WBF0ZX Excision of Abdominal Wall, Open Approach, Diagnostic (ICD-10-PCS; 2016-09-25)
PROC: 0DH60UZ Insertion of Feeding Device into Stomach, Open Approach (ICD-10-PCS; 2016-09-25)
PROC: 0DNB0ZZ Release Ileum, Open Approach (ICD-10-PCS; principal; 2016-09-25 13:30)
DX: C78.4 Secondary malignant neoplasm of small intestine (principal); K56.5 Intestinal adhesions [bands] with obstruction (postinfection); E44.0 Moderate protein-calorie malnutrition; R18.8 Other ascites; C79.89 Secondary malignant neoplasm of other specified sites; E11.65 Type 2 diabetes mellitus with hyperglycemia; E87.1 Hypo-osmolality and hyponatremia; E87.5 Hyperkalemia; C54.1 Malignant neoplasm of endometrium; E66.9 Obesity, unspecified; D64.9 Anemia, unspecified; E78.00 Pure hypercholesterolemia, unspecified; E87.6 Hypokalemia; K21.9 Gastro-esophageal reflux disease without esophagitis; I16.0 Hypertensive urgency; I25.10 Atherosclerotic heart disease of native coronary artery without angina pectoris; Z80.3 Family history of malignant neoplasm of breast; Z68.32 Body mass index [BMI] 32.0-32.9, adult; Z85.42 Personal history of malignant neoplasm of other parts of uterus; Z87.891 Personal history of nicotine dependence; Z90.49 Acquired absence of other specified parts of digestive tract; Z90.710 Acquired absence of both cervix and uterus; Z92.3 Personal history of irradiation; Z95.1 Presence of aortocoronary bypass graft; Z88.0 Allergy status to penicillin; Z91.041 Radiographic dye allergy status; Z99.3 Dependence on wheelchair; Z51.5 Encounter for palliative care
CPT/HCPCS: 36415; 71010; 74000; 74022; 74176; 74250; 80048; 80053; 82962; 83036; 83605; 83735; 84100; 84478; 85007; 85025; 85027; 86304; 87040; 87324; 88112; 88305; 88331; 88341; 88342; 93306; J0330; J0360; J0610; J0696; J1100; J1170; J1815; J1956; J2060; J2270; J2405; J2704; J3010; J3475; J3490; J7030; J7042; Q9967; S0028; 97110; 97116; 97530; 97535; 99285-25; J2001

== ENCOUNTER 2016-10-10 15:47 | Inpatient (IN) | payer MEDICARE ==
[2016-10-10] VITALS (8 sets, daily range): BP systolic 93–106; BP diastolic 51–57
[~2016-10-10] VITALS: Ht 172.7 cm; Wt 92.1 kg
[2016-10-10] MEDS ORDERED: NALOXONE 2 MG/2 ML DISP.SYRIN. ONE (15:49)
[2016-10-10 16:15] LABS: BASO # 0.1 x10^3/uL (0.0-0.2); BASO % 0 % (0-3); EOS % 0 % (0-3); HEMATOCRIT 28.8 % (36.0-47.0); HEMOGLOBIN 9.1 g/dL (12.0-15.5); LYMPH # 1.4 x10^3/uL (1.0-4.8); LYMPH % 8 % (24-48); MEAN CORPUSCULAR HEMOGLOBIN 30 pg (25-35); MEAN CORPUSCULAR HGB CONC 32 g/dL (31-37); MEAN CORPUSCULAR VOLUME 96 fL (79-100); MONO % 3 % (0-9); NEUT % 89 % (31-73); PLATELET COUNT 295 x10^3/uL (140-400); RED CELL DISTRIBUTION WIDTH 16.3 % (11.5-14.5); WHITE BLOOD COUNT 18.5 x10^3/uL (4.0-11.0)
[2016-10-10] MEDS ORDERED: NALOXONE 0.4 MG/ML VIAL. IV ONE (16:15)
[2016-10-10] MEDS ORDERED: IV NORMAL SALINE 1000ML BAG 1,000 ML IV ONE (16:15)
[2016-10-10] MEDS ORDERED: IBUPROFEN 400 MG TABLET. PO ONE (16:15)
[2016-10-10] MEDS ORDERED: ACETAMINOPHEN 325 MG TABLET. PO ONE (16:15)
[2016-10-10 16:24] LABS: CALCIUM 9.1 mg/dL (8.5-10.1); CREATININE 1.8 mg/dL (0.6-1.0); GFR 33.2; POTASSIUM 4.7 mmol/L (3.5-5.1)
--- NOTE | 2016-10-10 16:29 | PHYS DOC ---
Past Medical History Past Medical History: Cancer, High Cholesterol, Hypertension Additional Past Medical Histor: SBO, uterine ca Past Surgical History: Appendectomy, Cholecystectomy, Hysterectomy, Tonsillectomy Alcohol Use: None Drug Use: None Adult General Chief Complaint Chief Complaint: ALTERED MENTAL STATUS HPI HPI Patient is a 76 year old female sent from intermediate secondary to respiratory depression and being unarousable.. Patient is full code. Patient receives additional doses of found narcotics today for pain control. Patient has a history of uterine cancer. Patient was found to be febrile on the ED. patient was giving 2mg of Narcan in the ED by nursing without discussion with ED MD (hospitalist Dr Campoverde had given an order). Patient has woken up by narcan and BP improved. Review of Systems Review of Systems Constitutional: Denies fever or chills [] HENT: Denies nasal congestion or sore throat [] Respiratory: Denies cough or shortness of breath [] Cardiovascular: No chest pain GI:Yes to abdominal and pelvic pain : Denies dysuria or hematuria [] Musculoskeletal: Denies back pain or joint pain [] Integument: Denies rash or skin lesions [] Neurologic: Denies headache, focal weakness or sensory changes [] Current Medications Current Medications Current Medications Medications (Trade) Dose Ordered Sig/Marco Start Time Stop Time Status Last Admin Dose Admin Acetaminophen (Tylenol) 650 mg 1X ONCE 10/10/16 16:15 10/10/16 16:16 DC 10/10/16 16:47 650 MG Aspirin (Children'S Aspirin) 324 mg 1X ONCE 10/10/16 16:45 10/10/16 16:46 DC 10/10/16 16:56 324 MG Ibuprofen (Motrin) 400 mg 1X ONCE 10/10/16 16:15 10/10/16 16:16 DC 10/10/16 16:47 400 MG Lorazepam (Ativan) 1 mg 1X ONCE 10/10/16 18:00 10/10/16 18:01 DC 10/10/16 17:59 1 MG Naloxone HCl (Narcan) 2 mg 1X ONCE 10/10/16 16:30 10/10/16 16:32 DC 10/10/16 15:54 2 MG Ringer's Solution 1,000 ml @ 999 mls/hr 1X ONCE 10/10/16 18:00 10/10/16 19:00 DC 10/10/16 18:36 999 MLS/HR Sodium Chloride 1,000 ml @ 1,000 mls/hr 1X ONCE 10/10/16 16:15 10/10/16 17:14 DC 10/10/16 15:56 1,000 MLS/HR Allergies Allergies Allergies Coded Allergies Type Severity Reaction Last Updated Verified Iodinated Contrast- Oral and IV Dye Allergy Intermediate 09/25/16 Yes influenza virus vaccine qs 7221-7514 (36 mos, up) Allergy Intermediate Yes Physical Exam Physical Exam Constitutional: Well developed, well nourished, moderate distress, ill appearing. [] HENT: Normocephalic, atraumatic, DMM, no oral exudates, nose normal. [] Eyes:EOMI, conjunctiva normal, no discharge. [] Neck: Normal range of motion, no tenderness, supple, no stridor. No lad, no meningeal signs. Cardiovascular:Heart rate regular rhythm, no murmur [] Lungs & Thorax: Bilateral breath sounds clear to auscultation but decreased movement Abdomen: Bowel sounds normal,distended with diffuse ttp, no pulsatile masses. Old well healed scar, PEG tube in place Skin: Warm, dry, no erythema, no rash. [] Back: No tenderness, no CVA tenderness. [] Extremities: No tenderness, no cyanosis, no DVT, ROM intact, no edema. [] Neurologic: Alert and oriented X 3, normal motor function, no focal deficits noted. [] Psychologic: Affect normal, judgement normal, mood normal. [] Current Patient Data Vital Signs Vital Signs Date Time Temp Pulse Resp B/P (MAP) Pulse Ox O2 Delivery O2 Flow Rate FiO2 10/10/16 18:06 98.0 90 20 99/52 (68) 93 Nasal Cannula 3.0 98.0 Lab Values Laboratory Tests Test 10/10/16 15:50 10/10/16 15:52 10/10/16 16:06 10/10/16 16:12 Glucose (Fingerstick) 329 mg/dL (70-99) H O2 Saturation 88 % (92-99) L Arterial Blood pH 7.29 (7.35-7.45) L Arterial Blood pCO2 at Patient Temp 35 mmHg (35-46) Arterial Blood pO2 at Patient Temp 65 mmHg (65-108) Arterial Blood HCO3 16 mmol/L (21-28) L Arterial Blood Base Excess -9 mmol/L (-3-3) L FiO2 32 White Blood Count 18.5 x10^3/uL (4.0-11.0) H Red Blood Count 3.00 x10^6/uL (3.50-5.40) L Hemoglobin 9.1 g/dL (12.0-15.5) L Hematocrit 28.8 % (36.0-47.0) L Mean Corpuscular Volume 96 fL (79-100) Mean Corpuscular Hemoglobin 30 pg (25-35) Mean Corpuscular Hemoglobin Concent 32 g/dL (31-37) Red Cell Distribution Width 16.3 % (11.5-14.5) H Platelet Count 295 x10^3/uL (140-400) Neutrophils (%) (Auto) 89 % (31-73) H Lymphocytes (%) (Auto) 8 % (24-48) L Monocytes (%) (Auto) 3 % (0-9) Eosinophils (%) (Auto) 0 % (0-3) Basophils (%) (Auto) 0 % (0-3) Neutrophils # (Auto) 16.4 x10^3uL (1.8-7.7) H Lymphocytes # (Auto) 1.4 x10^3/uL (1.0-4.8) Monocytes # (Auto) 0.5 x10^3/uL (0.0-1.1) Eosinophils # (Auto) 0.0 x10^3/uL (0.0-0.7) Basophils # (Auto) 0.1 x10^3/uL (0.0-0.2) Platelet Estimate Pending Sodium Level 136 mmol/L (136-145) Potassium Level 4.7 mmol/L (3.5-5.1) Chloride Level 99 mmol/L (98-107) Carbon Dioxide Level 20 mmol/L (21-32) L Anion Gap 17 (6-14) H Blood Urea Nitrogen 21 mg/dL (7-20) H Creatinine 1.8 mg/dL (0.6-1.0) H Estimated GFR (Cockcroft-Gault) 33.2 BUN/Creatinine Ratio 12 (6-20) Glucose Level 367 mg/dL (70-99) H Calcium Level 9.1 mg/dL (8.5-10.1) Magnesium Level 2.1 mg/dL (1.8-2.4) Total Bilirubin 0.6 mg/dL (0.2-1.0) Aspartate Amino Transferase (AST) 49 U/L (15-37) H Alanine Aminotransferase (ALT) 53 U/L (14-59) Alkaline Phosphatase 482 U/L (46-116) H Troponin I Quantitative 0.263 ng/mL (0.000-0.055) Total Protein 8.0 g/dL (6.4-8.2) Albumin 1.7 g/dL (3.4-5.0) L Albumin/Globulin Ratio 0.3 (1.0-1.7) L Urine Collection Type Unknown Urine Color Yellow Urine Clarity Clear Urine pH 5.5 Urine Specific [place] 1.025 Urine Protein 100 mg/dL (NEG-TRACE) Urine Glucose (UA) >=1000 mg/dL (NEG) Urine Ketones (Stick) Negative mg/dL (NEG) Urine Blood Negative (NEG) Urine Nitrite Negative (NEG) Urine Bilirubin Negative (NEG) Urine Urobilinogen Dipstick 0.2 mg/dL (0.2 mg/dL) Urine Leukocyte Esterase Negative (NEG) Urine RBC 0 /HPF (0-2) Urine WBC 1-4 /HPF (0-4) Urine Squamous Epithelial Cells Occ /LPF Urine Amorphous Sediment Present /HPF Urine Bacteria Few /HPF (0-FEW) Urine Mucus Slight /LPF Test 10/10/16 16:29 Prothrombin Time 17.5 SEC (11.7-14.0) H Prothrombin Time INR 1.5 (0.8-1.1) H Lactic Acid Level 8.3 mmol/L (0.4-2.0) *H Ammonia 55 mcmol/L (11-34) H Laboratory Tests 10/10/16 16:06 Laboratory Tests 10/10/16 16:06 EKG EKG 1640 sinus tachycardia, 101, no stemi[] Radiology/Procedures Radiology/Procedures [] Course & Med Decision Making Course & Med Decision Making Pertinent Labs and Imaging studies reviewed. (See chart for details) all meds ordered as po were given via Gtube. unable to do CT with contrast due to allergy issues. 183 Dr Albright at bedside [address] Nuñez re need for consult 1858 levophed started Critical care time was45 minutes exclusive of procedures or teaching. Patient monitored by me. Pt discussed with admitting team, specialist, nursing , family. complicating factors overmedication, acidosis, fever, hemodynamic instability. Management of pressors, fluids, antibiotics. [] Dragon Disclaimer Dragon Disclaimer This electronic medical record was generated, in whole or in part, using a voice recognition dictation system. Departure Departure Impression: Primary Impression: Fever Additional Impressions: Pleural effusion Hypotension PP (pneumoperitoneum) Lactic acid acidosis Cancer Opiate overdose Disposition: ADMITTED INPATIENT Admitting Physician: Carlos Eduardo Campoverde Condition: CRITICAL Referrals: TAMRA MURPHY MD (PCP) Problem Qualifiers Edwardo HDZ MD Oct 10, 2016 16:29
[2016-10-10 16:30] LABS: ALBUMIN 1.7 g/dL (3.4-5.0); ALBUMIN/GLOBULIN RATIO 0.3 (1.0-1.7); MAGNESIUM 2.1 mg/dL (1.8-2.4); TOTAL BILIRUBIN 0.6 mg/dL (0.2-1.0)
[2016-10-10] MEDS ORDERED: NALOXONE 2 MG/2 ML DISP.SYRIN. IV ONE (16:30)
--- NOTE | 2016-10-10 16:30 | HP ---
ADMIT DATE: 10/10/2016 DATE OF SERVICE: 10/10/2016 CHIEF COMPLAINT: Mental status change. HISTORY OF PRESENT ILLNESS: The patient is a pleasant elderly female who I have been caring for at the rehab facility over at [facility]. Today, the nurse called me, explained she was tachycardic. She was hypoxic. She was clammy. I told her to bring her to the ER. Once the patient arrived here in the ER, she is in room #1, I came to see her immediately. She is quite ill. She is on 100% nonrebreather. The nurses appropriately tried some Narcan that actually has helped quite a bit. She sat up and asked me one question, but she is very frail and pale and tachycardic. I suspect she has underlying sepsis on top of the narcotic toxicity (she apparently did get a couple milligrams of morphine and some Lortab over at the facility). PAST MEDICAL HISTORY: Malignant neoplasm of the uterus. She has had a hysterectomy, intestinal obstruction, CAD, gastrostomy with PEG placement, hypertension, obesity, diabetes, history of coronary bypass grafting, hyperlipidemia, hypokalemia, previous tobacco use, but she has apparently quit, debility. ALLERGIES: None. FAMILY HISTORY: Hypertension. SOCIAL HISTORY: She has been at the rehab facility at [facility]. I do not think she smokes or take drugs. She apparently did use to smoke. MEDICATIONS: Reviewed, please refer to the MRAD. REVIEW OF SYSTEMS: Unreliable. The patient is too confused. PHYSICAL EXAMINATION: VITAL SIGNS: Temperature 100, pulse 110, respirations 22, blood pressure 79/50. GENERAL: She is sedated. We gave her some Narcan. She did wake up. She still looks quite clammy and she is still hypoxic. HEART: Tachycardic, S1, S2. LUNGS: Coarse. ABDOMEN: Soft, obese. She does have some ascites. There is a PEG tube in place. She does have a ventral incision that is healing. ENDOCRINE: No thyromegaly. LYMPHATICS: No cervical nodes. HEMATOPOIETIC: No bruising. LABORATORY DATA: Pending. ASSESSMENT AND PLAN: Probable sepsis in elderly female who has a uterine cancer and who also may have actually got a little bit too much narcotics, but they were trying to do good by her by controlling her pain. Again, we did reverse some of the narcotic toxicity with some Narcan. She is doing a little better, but she is still quite ill. She will need to go to the ICU. We will start IV antibiotics, IV fluids. I consulted Dr. Barone. Continue previous medications, will probably need palliative care consultation. Long-term prognosis is guarded at best. SOFYA CHAPPELL DO DR: JOHN/shani JOB#: [id number] / [id number]
[2016-10-10] MEDS ORDERED: ASPIRIN CHEWABLE 81 MG TABLET. PO ONE (16:45)
[2016-10-10 16:56] LABS: INR 1.5 (0.8-1.1); PROTHROMBIN TIME PATIENT 17.5 SEC (11.7-14.0)
[2016-10-10 16:56] LABS: HCO3 ABG 16 mmol/L (21-28); PCO2 ABG 35 mmHg (35-46); PH ABG 7.29 (7.35-7.45); PO2 ABG 65 mmHg (65-108); SAT O2 ABG 88 % (92-99)
[2016-10-10 16:57] LABS: ALLEN TEST positive; FIO2 ABG 32
[2016-10-10 16:59] LABS: BILIRUBIN,URINE NEGATIVE (NEG); GLUCOSE,URINE >=1000 mg/dL (NEG); NITRITE,URINE NEGATIVE (NEG); PH,URINE 5.5; PROTEIN,URINE 100 mg/dL (NEG-TRACE); UROBILINOGEN,URINE 0.2 mg/dL (0.2 mg/dL)
[2016-10-10 17:42] LABS: BACTERIA,URINE FEW /HPF (0-FEW); RBC,URINE 0 /HPF (0-2); SQUAMOUS EPITHELIAL CELL,UR OCC /LPF
--- NOTE | 2016-10-10 17:49 | RAD ---
EXAM: Abdomen and pelvis CT without intravenous contrast. HISTORY: Pain. TECHNIQUE: Computed tomographic images of the abdomen and pelvis were obtained without contrast. Multiplanar reformatting was performed. *One or more of the following individualized dose reduction techniques were utilized for this examination: 1. Automated exposure control. 2. Adjustment of the mA and/or kV according to patient size. 3. Use of iterative reconstruction technique. COMPARISON: 09/19/2016. FINDINGS: Evaluation of the lower thorax demonstrates a moderate to large left pleural effusion and left lower lobe consolidation or collapse. There is coronary artery atherosclerosis and dense calcification of the aortic valve. There is partial mineralization of a catheter within the inferior cavoatrial junction. There is trace pericardial fluid. There is pneumoperitoneum within the left upper quadrant. This surrounds the spleen. There is associated perisplenic fatty stranding. The possibility of an adjacent loculated left basilar pneumothorax is not excluded on this exam, difficult to assess in the absence of contrast and with a degree of patient oblique positioning. The liver is upper normal in size. The gallbladder is surgically absent. The pancreas and adrenal glands are unremarkable. There is a gastrostomy tube within the stomach. The kidneys are unremarkable. There is evidence of recent midline ventral abdominal wall surgery. There is gas along the ventral abdominal wall incision line. No hematoma or ventral abdominal wall abscess is seen. There are distended air and fluid-filled loops of small bowel throughout the mid abdomen. There is associated small bowel wall thickening and surrounding stranding. There is a fluid collection within the inferior ventral left abdominal wall which is likely intraluminal rather than due to loculated intraperitoneal fluid. There is contrast within the colon. There is colonic diverticulosis. There is no evidence of diverticulitis. There is formed stool within the rectal vault. There is a Damon catheter and gas within a decompressed bladder. There is heavily calcified plaque within the aorta and main aortic branch vessels. No pathologically enlarged lymph node is seen. There is degenerative change throughout the spine. No suspicious osseous lesion is seen. IMPRESSION: 1. Pneumoperitoneum within the left upper quadrant. Given evidence of recent ventral abdominal wall surgery and presence of gas along the ventral abdominal wall incision line, this may be due to relative recent postoperative change. Evaluation for bowel perforation is limited in the absence of contrast. 2. Distended air and fluid-filled loops of bowel within the midabdomen, significantly decreased compared to the prior study. This is likely due to resolving or residual partial small bowel obstruction. There is stranding and fluid surrounding the distended bowel loops within the lower abdomen. No clear abscess is seen. 3. Moderate to large left pleural effusion with lower lobe consolidation or collapse. The possibility of a loculated left basilar pneumothorax is not excluded on this exam. 4. Colonic diverticulosis. 5. Gastrostomy tube in expected position. 6. Large amount of stool within the rectal vault. Correlate for impaction. Electronically signed by: Sulema Khan MD (10/10/2016 5:45 PM) [facility]
[2016-10-10] MEDS ORDERED: IV RINGERS,LACTATED 1000ML 1,000 ML IV ONE ×2 (18:00)
[2016-10-10] MEDS ORDERED: PIPERACILLIN/TAZOBACTAM 3.375 GM in IV NORMAL SALINE 50ML 50 ML IV ONE (18:45)
[2016-10-10] MEDS ORDERED: ONDANSETRON PF 4 MG/2 ML VIAL. IV PRN (19:00)
[2016-10-10] MEDS ORDERED: NOREPINEPHRIN PREMIX 250 ML IV ONE ×2 (19:00)
[2016-10-10] MEDS ORDERED: ACETAMINOPHEN 325 MG TABLET. PO PRN (19:00)
[2016-10-10] MEDS ORDERED: VANCOMYCIN 1.75 GM in IV NORMAL SALINE 500ML BAG 500 ML IV ONE ×2 (19:15→21:00)
[2016-10-10] MEDS ORDERED: VANCOMYCIN PER PHARMACY MC PRN (19:15)
[2016-10-10] MEDS ORDERED: PIP/TAZO PER PHARMACY MC PRN (19:15)
[2016-10-10] MEDS ORDERED: AMINO AC 3%/ELECTROLYTE/GLYCER 1,000 ML IV SCH (19:15)
--- NOTE | 2016-10-10 19:53 | RAD ---
EXAM: Chest CT without intravenous contrast. HISTORY: Pleural effusion. TECHNIQUE: Computed tomographic images of the chest were obtained without contrast. Multiplanar reformatting was performed. *One or more of the following individualized dose reduction techniques were utilized for this examination: 1. Automated exposure control. 2. Adjustment of the mA and/or kV according to patient size. 3. Use of iterative reconstruction technique. COMPARISON: Chest radiograph dated 09/26/2016. FINDINGS: There is a large left pleural effusion. This appears to be at least partially loculated. There is left lung consolidation and partial collapse. There is mild residual aeration of the left upper lobe. There is loculated gas along the left hemidiaphragm which is likely due to adjacent pneumoperitoneum rather than a loculated pleural gas collection/pneumothorax. There is additional pneumoperitoneum surrounding the spleen. There is cardiomegaly and a small pericardial effusion. There is evidence of coronary artery bypass grafting. There is calcification of the aorta and aortic valve. There is a patulous air and fluid-filled esophagus. No pathologically enlarged lymph node is seen. There is right posterior dependent and basilar atelectasis. There are degenerative changes throughout the thoracic spine. No suspicious osseous lesion is seen. There is a left chest wall port catheter with the tip in the superior cavoatrial junction. There is also a suspected right PICC with the tip in the superior cavoatrial junction. IMPRESSION: 1. Large partially loculated left pleural effusion with partial consolidation and collapse of the left lung. There is a small amount of aerated left upper lobe containing interstitial infiltrate. The possibility of an underlying obstructing central mass lesion is not excluded. 2. Focal gas along the left hemidiaphragm, likely due to adjacent pneumoperitoneum rather than a loculated pleural gas collection/pneumothorax. There is additional pneumoperitoneum surrounding the spleen and there is perisplenic stranding and trace fluid. This is characterized on the abdomen and pelvis CT obtained on the same date. 3. Cardiomegaly and evidence of prior CABG. There is aortic atherosclerosis and calcification of the aortic valve. Electronically signed by: Sulema Khan MD (10/10/2016 7:49 PM) [facility]
[2016-10-10 20:14] LABS: NUCLEATED RBC 2
[2016-10-10 20:15] LABS: PLT ESTIMATE ADEQUATE (ADEQUATE); POLYCHROMASIA SLIGHT; TOXIC GRANULATION SLIGHT; TOXIC VACUOLATION SLIGHT
[2016-10-10] MEDS ORDERED: FAMOTIDINE 20 MG/2 ML VIAL IVP SCH (21:00)
[2016-10-10] MEDS ORDERED: TPN PER PHARMACY MC PRN (21:15)
[2016-10-10] MEDS ORDERED: DEXTROSE 50% 25 GM / 50ML DISP.SYRIN. IV PRN (21:15)
--- NOTE | 2016-10-10 21:26 | PDOC2 ---
CONSULT Date of Consult Date of Consult DATE: 10/10/16 TIME: 21:20 History of Present Illness Reason for Visit: The patient is a 76 year old female who recently underwent surgery by Dr Carrillo for small bowel obstruction. 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 She returned to the hospital with altered mental status. The patient is currently obtunded and unable to provide additional history. Past Medical History Cardiovascular: CAD, HTN Heme/Onc: Cancer Renal/: Other Endocrine: Diabetes Past Surgical History Past Surgical History: CABG, Hysterectomy Family History Family History: Other Social History ALCOHOL: none Drugs: None Lives: Alone Current Problem List Problem List Problems Medical Problems: (1) Cancer Status: Acute (2) Fever Status: Acute (3) Hypotension Status: Acute (4) Lactic acid acidosis Status: Acute (5) Opiate overdose Status: Acute (6) Pleural effusion Status: Acute (7) PP (pneumoperitoneum) Status: Acute Current Medications Current Medications Current Medications Naloxone HCl (Narcan) 2 mg STK-MED ONCE .ROUTE ; Start 10/10/16 at 15:49; Stop at 15:50; Status DC Sodium Chloride 1,000 ml @ 1,000 mls/hr 1X ONCE IV Last administered on 15:56; Start 10/10/16 at 16:15; Stop 10/10/16 at 17:14; Status DC Naloxone HCl (Narcan) 0.4 mg 1X ONCE IV ; Start 10/10/16 at 16:15; Stop 10/10/16 at 16:16; Status DC Acetaminophen (Tylenol) 650 mg 1X ONCE PO Last administered on 10/10/16 16:47 ; Start 10/10/16 at 16:15; Stop 10/10/16 at 16:16; Status DC Ibuprofen (Motrin) 400 mg 1X ONCE PO Last administered on 10/10/16 16:47; Start 10/10/16 at 16:15; Stop 10/10/16 at 16:16; Status DC Naloxone HCl (Narcan) 2 mg 1X ONCE IV Last administered on 10/10/16 15:54; Start 10/10/16 at 16:30; Stop 10/10/16 at 16:32; Status DC Aspirin (Children'S Aspirin) 324 mg 1X ONCE PO Last administered on 10/10/16 16:56; Start 10/10/16 at 16:45; Stop 10/10/16 at 16:46; Status DC Lorazepam (Ativan) 1 mg 1X ONCE IV Last administered on 10/10/16 17:59; Start 10/10/16 at 18:00; Stop 10/10/16 at 18:01; Status DC Ringer's Solution 1,000 ml @ 999 mls/hr 1X ONCE IV Last administered on 18:02; Start 10/10/16 at 18:00; Stop 10/10/16 at 19:00; Status DC Ringer's Solution 1,000 ml @ 999 mls/hr 1X ONCE IV Last administered on 18:36; Start 10/10/16 at 18:00; Stop 10/10/16 at 19:00; Status DC Piperacillin Sod/ Tazobactam Sod 3.375 gm/Sodium Chloride 50 ml @ 100 mls/hr 1X ONCE IV Last administered on 10/10/16 18:43; Start 10/10/16 at 18:45; Stop 10/10/16 at 19:14; Status DC Ondansetron HCl (Zofran) 4 mg PRN Q8HRS PRN IV NAUSEA/VOMITING; Start 10/10/16 at 19:00; Stop 10/11/16 at 18:59 Acetaminophen (Tylenol) 650 mg PRN Q4HRS PRN PO FEVER; Start 10/10/16 at 19:00; Stop 10/11/16 at 18:59 Norepinephrine Bitartrate 250 ml @ 1.875 mls/ hr 1X ONCE IV Last administered on 10/10/16 18:58; Start 10/10/16 at 19:00; Stop 10/16/16 at 08:19 Norepinephrine Bitartrate 250 ml @ 0 mls/hr 1X ONCE IV ; Start 10/10/16 at 19:00 ; Stop 10/10/16 at 19:01; Status Cancel Amino Acids/ Glycerin/ Electrolytes 1,000 ml @ 80 mls/hr [id number] IV ; Start 10/10/16 at 19:15; Stop 10/10/16 at 19:20; Status DC Famotidine (Pepcid) 20 mg QHS IVP ; Start 10/10/16 at 21:00; Stop 10/10/16 at 21: 00; Status DC Heparin Sodium (Porcine) (Heparin Sq) 5,000 unit Q8HRS SQ ; Start 10/10/16 at 22: 00; Stop 10/10/16 at 22:00; Status DC Piperacillin Sod/ Tazobactam Sod 3.375 gm/Sodium Chloride 50 ml @ 100 mls/hr Q6HRS IV ; Start 10/11/16 at 00:00; Stop 10/11/16 at 00:00; Status DC Piperacillin Sod/ Tazobactam Sod (Zosyn Per Pharmacy) 1 each PRN DAILY PRN [facility] SEE COMMENTS; Start 10/10/16 at 19:15; Stop 10/10/16 at 19:20; Status DC Vancomycin HCl 1.75 gm/Sodium Chloride 500 ml @ 250 mls/hr 1X ONCE IV ; Start 10/10/16 at 19:15; Stop 10/10/16 at 21:14; Status Cancel Vancomycin HCl (Vanco Per Pharmacy) 1 each PRN DAILY PRN [facility] SEE COMMENTS; Start 10/10/16 at 19:15; Stop 10/10/16 at 19:20; Status DC Info 1 each PRN DAILY PRN [facility] SEE COMMENTS; Start 10/10/16 at 21:15 Amino Acids/ Glycerin/ Electrolytes 1,000 ml @ 80 mls/hr [id number] IV ; Start 10/10/16 at 21:15; Stop 10/11/16 at 21:00 Insulin Aspart (NovoLOG) 0-9 UNITS TIDWMEALS SQ ; Start 10/11/16 at 08:00 Dextrose (Dextrose 50%-Water Syringe) 12.5 gm PRN Q15MIN PRN IV SEE COMMENTS; Start 10/10/16 at 21:15 Sodium Chloride 2,000 ml @ 500 mls/hr 1X ONCE IV ; Start 10/10/16 at 21:30; Stop 10/11/16 at 01:29 Active Scripts Active Senna S Tablet (Sennosides/Docusate Sodium) 1 Each Tablet 1 Each PO DAILY Reported Lexapro (Escitalopram Oxalate) 20 Mg Tablet 1 Tab PO DAILY Lisinopril-Hctz 20-12.5 Mg Tab (Lisinopril/Hydrochlorothiazide) 1 Each Tablet 1 Tab PO DAILY Lipitor (Atorvastatin Calcium) 20 Mg Tablet 20 Mg PO HS Ambien (Zolpidem Tartrate) 5 Mg Tablet 1 Tab PO QHS Lyrica (Pregabalin) 150 Mg Capsule 150 Mg PO BID 30 Days Buspirone Hcl 10 Mg Tablet 10 Mg PO BID Aspir 81 (Aspirin) 81 Mg Tablet. 1 Tab PO DAILY Allergies Allergies: Coded Allergies: Iodinated Contrast- Oral and IV Dye (Verified Allergy, Intermediate, ) influenza virus vaccine qs 5410-8520 (36 mos, up) (Verified Allergy, Intermediate, 09/27/16) ROS Review of System unable to obtain, pt is obtunded Physical Exam General: Other (appears sleeping, breathing loudly) HEENT: Atraumatic Lungs: Other (diminished sounds left side) Heart: Other (tachy) Abdomen: Other (distended but soft, no clear tenderness, healing midline incision, Gtube in LUQ) Extremities: Other (ankle edema present) Neuro: Other (obtunded) Vitals VITALS Vital Signs Date Time Temp Pulse Resp B/P (MAP) Pulse Ox O2 Delivery O2 Flow Rate FiO2 10/10/16 19:35 88 16 99/57 (71) 94 Nasal Cannula 3.0 10/10/16 18:06 98.0 98.0 Labs Labs Laboratory Tests Test 10/10/16 15:50 10/10/16 15:52 10/10/16 16:06 10/10/16 16:12 Glucose (Fingerstick) 329 mg/dL (70-99) O2 Saturation 88 % (92-99) Arterial Blood pH 7.29 (7.35-7.45) Arterial Blood pCO2 at Patient Temp 35 mmHg (35-46) Arterial Blood pO2 at Patient Temp 65 mmHg (65-108) Arterial Blood HCO3 16 mmol/L (21-28) Arterial Blood Base Excess -9 mmol/L (-3-3) FiO2 32 White Blood Count 18.5 x10^3/uL (4.0-11.0) Red Blood Count 3.00 x10^6/uL (3.50-5.40) Hemoglobin 9.1 g/dL (12.0-15.5) Hematocrit 28.8 % (36.0-47.0) Mean Corpuscular Volume 96 fL (79-100) Mean Corpuscular Hemoglobin 30 pg (25-35) Mean Corpuscular Hemoglobin Concent 32 g/dL (31-37) Red Cell Distribution Width 16.3 % (11.5-14.5) Platelet Count 295 x10^3/uL (140-400) Neutrophils (%) (Auto) 89 % (31-73) Lymphocytes (%) (Auto) 8 % (24-48) Monocytes (%) (Auto) 3 % (0-9) Eosinophils (%) (Auto) 0 % (0-3) Basophils (%) (Auto) 0 % (0-3) Neutrophils # (Auto) 16.4 x10^3uL (1.8-7.7) Lymphocytes # (Auto) 1.4 x10^3/uL (1.0-4.8) Monocytes # (Auto) 0.5 x10^3/uL (0.0-1.1) Eosinophils # (Auto) 0.0 x10^3/uL (0.0-0.7) Basophils # (Auto) 0.1 x10^3/uL (0.0-0.2) Segmented Neutrophils % 61 % (35-66) Band Neutrophils % 27 % (0-9) Lymphocytes % 8 % (24-48) Monocytes % 4 % (0-10) Nucleated Red Blood Cells 2 Toxic Granulation Slight Toxic Vacuolation Slight Platelet Estimate Adequate (ADEQUATE) Large Platelets Few Polychromasia Slight Macrocytosis Slight Sodium Level 136 mmol/L (136-145) Potassium Level 4.7 mmol/L (3.5-5.1) Chloride Level 99 mmol/L (98-107) Carbon Dioxide Level 20 mmol/L (21-32) Anion Gap 17 (6-14) Blood Urea Nitrogen 21 mg/dL (7-20) Creatinine 1.8 mg/dL (0.6-1.0) Estimated GFR (Cockcroft-Gault) 33.2 BUN/Creatinine Ratio 12 (6-20) Glucose Level 367 mg/dL (70-99) Calcium Level 9.1 mg/dL (8.5-10.1) Magnesium Level 2.1 mg/dL (1.8-2.4) Total Bilirubin 0.6 mg/dL (0.2-1.0) Aspartate Amino Transf (AST/SGOT) 49 U/L (15-37) Alanine Aminotransferase (ALT/SGPT) 53 U/L (14-59) Alkaline Phosphatase 482 U/L (46-116) Troponin I Quantitative 0.263 ng/mL (0.000-0.055) Total Protein 8.0 g/dL (6.4-8.2) Albumin 1.7 g/dL (3.4-5.0) Albumin/Globulin Ratio 0.3 (1.0-1.7) Urine Collection Type Unknown Urine Color Yellow Urine Clarity Clear Urine pH 5.5 Urine Specific [place] 1.025 Urine Protein 100 mg/dL (NEG-TRACE) Urine Glucose (UA) >=1000 mg/dL (NEG) Urine Ketones (Stick) Negative mg/dL (NEG) Urine Blood Negative (NEG) Urine Nitrite Negative (NEG) Urine Bilirubin Negative (NEG) Urine Urobilinogen Dipstick 0.2 mg/dL (0.2 mg/dL) Urine Leukocyte Esterase Negative (NEG) Urine RBC 0 /HPF (0-2) Urine WBC 1-4 /HPF (0-4) Urine Squamous Epithelial Cells Occ /LPF Urine Amorphous Sediment Present /HPF Urine Bacteria Few /HPF (0-FEW) Urine Mucus Slight /LPF Test 10/10/16 16:29 Prothrombin Time 17.5 SEC (11.7-14.0) Prothromb Time International Ratio 1.5 (0.8-1.1) Lactic Acid Level 8.3 mmol/L (0.4-2.0) Ammonia 55 mcmol/L (11-34) Laboratory Tests Test 10/10/16 15:50 10/10/16 15:52 10/10/16 16:06 10/10/16 16:12 Glucose (Fingerstick) 329 mg/dL (70-99) O2 Saturation 88 % (92-99) Arterial Blood pH 7.29 (7.35-7.45) Arterial Blood pCO2 at Patient Temp 35 mmHg (35-46) Arterial Blood pO2 at Patient Temp 65 mmHg (65-108) Arterial Blood HCO3 16 mmol/L (21-28) Arterial Blood Base Excess -9 mmol/L (-3-3) FiO2 32 White Blood Count 18.5 x10^3/uL (4.0-11.0) Red Blood Count 3.00 x10^6/uL (3.50-5.40) Hemoglobin 9.1 g/dL (12.0-15.5) Hematocrit 28.8 % (36.0-47.0) Mean Corpuscular Volume 96 fL (79-100) Mean Corpuscular Hemoglobin 30 pg (25-35) Mean Corpuscular Hemoglobin Concent 32 g/dL (31-37) Red Cell Distribution Width 16.3 % (11.5-14.5) Platelet Count 295 x10^3/uL (140-400) Neutrophils (%) (Auto) 89 % (31-73) Lymphocytes (%) (Auto) 8 % (24-48) Monocytes (%) (Auto) 3 % (0-9) Eosinophils (%) (Auto) 0 % (0-3) Basophils (%) (Auto) 0 % (0-3) Neutrophils # (Auto) 16.4 x10^3uL (1.8-7.7) Lymphocytes # (Auto) 1.4 x10^3/uL (1.0-4.8) Monocytes # (Auto) 0.5 x10^3/uL (0.0-1.1) Eosinophils # (Auto) 0.0 x10^3/uL (0.0-0.7) Basophils # (Auto) 0.1 x10^3/uL (0.0-0.2) Segmented Neutrophils % 61 % (35-66) Band Neutrophils % 27 % (0-9) Lymphocytes % 8 % (24-48) Monocytes % 4 % (0-10) Nucleated Red Blood Cells 2 Toxic Granulation Slight Toxic Vacuolation Slight Platelet Estimate Adequate (ADEQUATE) Large Platelets Few Polychromasia Slight Macrocytosis Slight Sodium Level 136 mmol/L (136-145) Potassium Level 4.7 mmol/L (3.5-5.1) Chloride Level 99 mmol/L (98-107) Carbon Dioxide Level 20 mmol/L (21-32) Anion Gap 17 (6-14) Blood Urea Nitrogen 21 mg/dL (7-20) Creatinine 1.8 mg/dL (0.6-1.0) Estimated GFR (Cockcroft-Gault) 33.2 BUN/Creatinine Ratio 12 (6-20) Glucose Level 367 mg/dL (70-99) Calcium Level 9.1 mg/dL (8.5-10.1) Magnesium Level 2.1 mg/dL (1.8-2.4) Total Bilirubin 0.6 mg/dL (0.2-1.0) Aspartate Amino Transf (AST/SGOT) 49 U/L (15-37) Alanine Aminotransferase (ALT/SGPT) 53 U/L (14-59) Alkaline Phosphatase 482 U/L (46-116) Troponin I Quantitative 0.263 ng/mL (0.000-0.055) Total Protein 8.0 g/dL (6.4-8.2) Albumin 1.7 g/dL (3.4-5.0) Albumin/Globulin Ratio 0.3 (1.0-1.7) Urine Collection Type Unknown Urine Color Yellow Urine Clarity Clear Urine pH 5.5 Urine Specific [place] 1.025 Urine Protein 100 mg/dL (NEG-TRACE) Urine Glucose (UA) >=1000 mg/dL (NEG) Urine Ketones (Stick) Negative mg/dL (NEG) Urine Blood Negative (NEG) Urine Nitrite Negative (NEG) Urine Bilirubin Negative (NEG) Urine Urobilinogen Dipstick 0.2 mg/dL (0.2 mg/dL) Urine Leukocyte Esterase Negative (NEG) Urine RBC 0 /HPF (0-2) Urine WBC 1-4 /HPF (0-4) Urine Squamous Epithelial Cells Occ /LPF Urine Amorphous Sediment Present /HPF Urine Bacteria Few /HPF (0-FEW) Urine Mucus Slight /LPF Test 10/10/16 16:29 Prothrombin Time 17.5 SEC (11.7-14.0) Prothromb Time International Ratio 1.5 (0.8-1.1) Lactic Acid Level 8.3 mmol/L (0.4-2.0) Ammonia 55 mcmol/L (11-34) Assessment/Plan Assessment/Plan 76 year old female with altered mental status, recent laparotomy/Gtube, CT showing air around spleen, no abscess, large left pleural effusion. I asked Dr Carrillo to review the CT and we both agree that the findings seem most likely postoperative without a definite acute process. Additionally she is not a surgical candidate. Recommend supportive measures; agree with palliative consult, prognosis is very poor given miliary abdominal metastatic disease and current presentation. JACK JONES MD Oct 10, 2016 21:26
[2016-10-10] MEDS ORDERED: IV NORMAL SALINE 1000ML BAG 2,000 ML IV ONE (21:30)
[2016-10-10] MEDS: AMINO AC 3%/ELECTROLYTE/GLYCER 1,000 ML IV SCH (21:47)
[2016-10-10] MEDS ORDERED: HEPARIN PF for SUB-Q USE 5,000 UNIT/0.5 ML VIAL. SQ SCH (22:00)
[2016-10-11] VITALS (16 sets, daily range): BP systolic 91–144; BP diastolic 41–69
[2016-10-11] MEDS ORDERED: PIPERACILLIN/TAZOBACTAM 3.375 GM in IV NORMAL SALINE 50ML 50 ML IV SCH ×2
[2016-10-11] MEDS ORDERED: PIP/TAZO PER PHARMACY MC PRN (00:15)
[2016-10-11] MEDS: PIPERACILLIN/TAZOBACTAM 3.375 GM in IV NORMAL SALINE 50ML 50 ML IV SCH ×3 (00:23→12:21)
[2016-10-11] MEDS ORDERED: VANCOMYCIN 1.75 GM in IV NORMAL SALINE 500ML BAG 500 ML IV ONE (01:00)
[2016-10-11] MEDS: VANCOMYCIN PER PHARMACY MC PRN ×2 (01:40→09:26)
[2016-10-11] MEDS ORDERED: ATOR20TA PO (02:11)
[2016-10-11] MEDS ORDERED: TUBE5VIA12 ID (02:11)
[2016-10-11] MEDS ORDERED: SALI44.3 MM (02:11)
[2016-10-11] MEDS ORDERED: SODI20VI2 IV (02:11)
[2016-10-11] MEDS ORDERED: CITA40TA12 PO (02:11)
[2016-10-11] MEDS ORDERED: INSU100I32 SQ (02:11)
[2016-10-11] MEDS ORDERED: ACET650S19 PO (02:11)
[2016-10-11] MEDS ORDERED: FAMO20TA5 PO (02:11)
[2016-10-11] MEDS ORDERED: INSU100I17 SQ (02:11)
[2016-10-11] MEDS ORDERED: POLY15DR20 OP (02:11)
[2016-10-11] MEDS ORDERED: BISA10SU2 RC (02:11)
[2016-10-11] MEDS ORDERED: MEGE625O PO (02:11)
[2016-10-11] MEDS ORDERED: MORP15TA80 PO (02:11)
[2016-10-11] MEDS ORDERED: HYDR-2758 PO (02:11)
--- NOTE | 2016-10-11 04:17 | RAD ---
PORTABLE CHEST 1V Clinical Indication: worsening respiratory distress Comparison: AP chest, prior day. Findings: Left Port-A-Cath is stable. Right PICC is stable. Median sternotomy wires. Limited evaluation of the mediastinum. Probable cardiomegaly. Large left pleural effusion is unchanged. There is minimal aerated lung at the left hilum and left lung apex, less well seen than on prior study. No focal airspace disease in the right lung. There may be right pulmonary vascular congestion. No right pleural effusion. No pneumothorax is seen. IMPRESSION: 1. Large left pleural effusion. 2. There is less aerated left lung. 3. Cannot exclude right pulmonary vascular congestion. Electronically signed by: Arsh Prieto MD (10/11/2016 4:14 AM) [id number]
[2016-10-11] MEDS: MORPHINE SULFATE 2 MG/ML DISP.SYRIN. IV PRN ×3 (04:46→14:28)
[2016-10-11] MEDS ORDERED: FUROSEMIDE 40 MG/4 ML VIAL. IVP ONE (05:00)
[2016-10-11] MEDS ORDERED: IPRATRPIUM/ALBUTEROL 0.5/2.5MG 3 ML NEBU. NEB ONE (05:45)
[2016-10-11] MEDS ORDERED: NALOXONE 0.4 MG/ML VIAL. ONE (06:08)
[2016-10-11 06:14] LABS: HCO3 ABG 6 mmol/L (21-28); PCO2 ABG 33 mmHg (35-46); PO2 ABG 85 mmHg (65-108); SAT O2 ABG 87 % (92-99)
[2016-10-11 06:32] LABS: ALBUMIN 1.5 g/dL (3.4-5.0); ALBUMIN/GLOBULIN RATIO 0.3 (1.0-1.7); CALCIUM 8.6 mg/dL (8.5-10.1); CREATININE 1.8 mg/dL (0.6-1.0); GFR 33.2; TOTAL BILIRUBIN 0.7 mg/dL (0.2-1.0); TOTAL PROTEIN 7.2 g/dL (6.4-8.2)
[2016-10-11 06:36] LABS: POTASSIUM 6.4 mmol/L (3.5-5.1)
[2016-10-11 06:41] LABS: FIO2 ABG 50; PH ABG 6.88 (7.35-7.45)
[2016-10-11] MEDS ORDERED: SODIUM BICARB ADULT 8.4% 50 MEQ/50 ML DISP.SYRIN. ONE ×2 (06:43→07:28)
[2016-10-11] MEDS ORDERED: MIDAZOLAM IV ONE (07:02)
[2016-10-11] MEDS ORDERED: VECURONIUM BOLUS 10 MG VIAL. IV ONE (07:02)
[2016-10-11] MEDS ORDERED: PHENYLEPHRINE in 0.9% NACL PF 1 MG/10 ML DISP.SYRIN. IV ONE (07:04)
[2016-10-11 07:24] LABS: BASO % 0 % (0-3); EOS % 5 % (0-3); HEMOGLOBIN 8.9 g/dL (12.0-15.5); LYMPH # 1.9 x10^3/uL (1.0-4.8); LYMPH % 11 % (24-48); MEAN CORPUSCULAR HEMOGLOBIN 31 pg (25-35); MEAN CORPUSCULAR HGB CONC 31 g/dL (31-37); MEAN CORPUSCULAR VOLUME 101 fL (79-100); MONO % 6 % (0-9); NEUT % 79 % (31-73); PLATELET COUNT 292 x10^3/uL (140-400); RED BLOOD COUNT 2.87 x10^6/uL (3.50-5.40); RED CELL DISTRIBUTION WIDTH 17.1 % (11.5-14.5); WHITE BLOOD COUNT 17.6 x10^3/uL (4.0-11.0)
[2016-10-11 07:25] LABS: BASE EXCESS COOX -23 mmol/L (-3-3); CARBON MONOXIDE 0.1 % (0.0-1.9); HCO3 COOX 7 mmol/L (21-28); OXYHEMOGLOBIN 89.2 %; PCO2 COOX 27 mmHg (35-46); PO2 COOX 81 mmHg (65-108); SAT O2 COOX 89 % (92-99); TOTAL HEMOGLOBIN 9.7 g/dL
[2016-10-11] MEDS ORDERED: SODIUM BICARB ADULT 8.4% 50 MEQ/50 ML DISP.SYRIN. IV ONE (07:30)
[2016-10-11 07:33] LABS: PH COOX 7.01 (7.35-7.45)
[2016-10-11] MEDS: IPRATRPIUM/ALBUTEROL 0.5/2.5MG 3 ML NEBU. NEB SCH ×3 (07:38→15:35)
[2016-10-11] MEDS: INSULIN ASPART 300 UNITS/3 ML INSULN.PEN SQ SCH ×2 (07:59→12:00)
[2016-10-11] MEDS ORDERED: DEXTROSE 5% IV SCH (08:00)
[2016-10-11] MEDS ORDERED: SODIUM BICARBONATE IV SCH (08:00)
[2016-10-11] MEDS ORDERED: SODIUM BICARBONATE VIAL 150 MEQ in IV DEXTROSE 5% 1,000 ML IV SCH (08:00)
[2016-10-11] MEDS: AMINO AC 3%/ELECTROLYTE/GLYCER 1,000 ML IV SCH (08:17)
[2016-10-11] MEDS ORDERED: VASOPRESSIN 40 UNIT in IV DEXTROSE 5% 100 ML IV PRN (08:30)
--- NOTE | 2016-10-11 08:56 | RAD ---
Examination: Single portable chest History: History of fever, shortness of breath Comparison: 2016 Findings: The cardiomediastinal silhouette demonstrates mild cardiomegaly. Left-sided Port-A-Cath and right-sided PICC line are unchanged. Moderate prominent appearing bilateral interstitial lung markings likely congestive changes. There is a moderate left-sided pneumothorax identified with left lung base airspace opacities likely atelectasis or infiltrate. Air density projects about the left hemidiaphragm could be secondary to known pneumoperitoneum. Impression 1. Findings suggestive of congestive changes with moderate left pleural effusion with left lung base consolidation or atelectasis. 2. Air density projects about the left hemidiaphragm could be secondary to known pneumoperitoneum.
--- NOTE | 2016-10-11 09:03 | EKG ---
[address] [place] [id number] Test Date: 2016-10-10 Test Time: 16:35:24 Pat Name: MAR VELASQUEZ Department: Room: 112 1 Gender: F Health Administrator: : 1940 Requested By: Edwardo HDZ Order Number: [id number] Reading MD: Clemente Irizarry Measurements Intervals Malone Rate: 101 P: 48 MD: 102 QRS: 25 QRSD: 102 T: 39 QT: 348 QTc: 458 Interpretive Statements SINUS TACHYCARDIA Electronically Signed On 10-14-2016 9:52:52 CDT by Clemente Irizarry
[2016-10-11] MEDS: NOREPINEPHRIN PREMIX 250 ML IV PRN ×2 (09:12→16:12)
[2016-10-11 09:18] LABS: HCO3 ABG 9 mmol/L (21-28); PCO2 ABG 30 mmHg (35-46); PO2 ABG 93 mmHg (65-108); SAT O2 ABG 94 % (92-99)
[2016-10-11 09:27] LABS: FIO2 ABG 50
--- NOTE | 2016-10-11 11:46 | PDOC ---
G I PROGRESS NOTE Reason for Follow-up Abd pain/mental status changes Subjective On CPAP Physical Exam Lungs coarse BS CV S1 S2 ABD +BS, soft, mildly distended Review of Relevant I have reviewed the following items anita (where applicable) has been applied. Labs Laboratory Tests Test 10/10/16 15:50 10/10/16 15:52 10/10/16 16:06 10/10/16 16:12 Glucose (Fingerstick) 329 mg/dL (70-99) O2 Saturation 88 % (92-99) Arterial Blood pH 7.29 (7.35-7.45) Arterial Blood pCO2 at Patient Temp 35 mmHg (35-46) Arterial Blood pO2 at Patient Temp 65 mmHg (65-108) Arterial Blood HCO3 16 mmol/L (21-28) Arterial Blood Base Excess -9 mmol/L (-3-3) FiO2 32 White Blood Count 18.5 x10^3/uL (4.0-11.0) Red Blood Count 3.00 x10^6/uL (3.50-5.40) Hemoglobin 9.1 g/dL (12.0-15.5) Hematocrit 28.8 % (36.0-47.0) Mean Corpuscular Volume 96 fL (79-100) Mean Corpuscular Hemoglobin 30 pg (25-35) Mean Corpuscular Hemoglobin Concent 32 g/dL (31-37) Red Cell Distribution Width 16.3 % (11.5-14.5) Platelet Count 295 x10^3/uL (140-400) Neutrophils (%) (Auto) 89 % (31-73) Lymphocytes (%) (Auto) 8 % (24-48) Monocytes (%) (Auto) 3 % (0-9) Eosinophils (%) (Auto) 0 % (0-3) Basophils (%) (Auto) 0 % (0-3) Neutrophils # (Auto) 16.4 x10^3uL (1.8-7.7) Lymphocytes # (Auto) 1.4 x10^3/uL (1.0-4.8) Monocytes # (Auto) 0.5 x10^3/uL (0.0-1.1) Eosinophils # (Auto) 0.0 x10^3/uL (0.0-0.7) Basophils # (Auto) 0.1 x10^3/uL (0.0-0.2) Segmented Neutrophils % 61 % (35-66) Band Neutrophils % 27 % (0-9) Lymphocytes % 8 % (24-48) Monocytes % 4 % (0-10) Nucleated Red Blood Cells 2 Toxic Granulation Slight Toxic Vacuolation Slight Platelet Estimate Adequate (ADEQUATE) Large Platelets Few Polychromasia Slight Macrocytosis Slight Sodium Level 136 mmol/L (136-145) Potassium Level 4.7 mmol/L (3.5-5.1) Chloride Level 99 mmol/L (98-107) Carbon Dioxide Level 20 mmol/L (21-32) Anion Gap 17 (6-14) Blood Urea Nitrogen 21 mg/dL (7-20) Creatinine 1.8 mg/dL (0.6-1.0) Estimated GFR (Cockcroft-Gault) 33.2 BUN/Creatinine Ratio 12 (6-20) Glucose Level 367 mg/dL (70-99) Calcium Level 9.1 mg/dL (8.5-10.1) Magnesium Level 2.1 mg/dL (1.8-2.4) Total Bilirubin 0.6 mg/dL (0.2-1.0) Aspartate Amino Transf (AST/SGOT) 49 U/L (15-37) Alanine Aminotransferase (ALT/SGPT) 53 U/L (14-59) Alkaline Phosphatase 482 U/L (46-116) Troponin I Quantitative 0.263 ng/mL (0.000-0.055) Total Protein 8.0 g/dL (6.4-8.2) Albumin 1.7 g/dL (3.4-5.0) Albumin/Globulin Ratio 0.3 (1.0-1.7) Urine Collection Type Unknown Urine Color Yellow Urine Clarity Clear Urine pH 5.5 Urine Specific [place] 1.025 Urine Protein 100 mg/dL (NEG-TRACE) Urine Glucose (UA) >=1000 mg/dL (NEG) Urine Ketones (Stick) Negative mg/dL (NEG) Urine Blood Negative (NEG) Urine Nitrite Negative (NEG) Urine Bilirubin Negative (NEG) Urine Urobilinogen Dipstick 0.2 mg/dL (0.2 mg/dL) Urine Leukocyte Esterase Negative (NEG) Urine RBC 0 /HPF (0-2) Urine WBC 1-4 /HPF (0-4) Urine Squamous Epithelial Cells Occ /LPF Urine Amorphous Sediment Present /HPF Urine Bacteria Few /HPF (0-FEW) Urine Mucus Slight /LPF Test 10/10/16 16:29 10/10/16 19:55 10/11/16 03:51 10/11/16 06:00 Prothrombin Time 17.5 SEC (11.7-14.0) Prothromb Time International Ratio 1.5 (0.8-1.1) Lactic Acid Level 8.3 mmol/L (0.4-2.0) 7.0 mmol/L (0.4-2.0) 16.6 mmol/L (0.4-2.0) Ammonia 55 mcmol/L (11-34) Glucose (Fingerstick) 288 mg/dL (70-99) White Blood Count 17.6 x10^3/uL (4.0-11.0) Red Blood Count 2.87 x10^6/uL (3.50-5.40) Hemoglobin 8.9 g/dL (12.0-15.5) Hematocrit 29.0 % (36.0-47.0) Mean Corpuscular Volume 101 fL (79-100) Mean Corpuscular Hemoglobin 31 pg (25-35) Mean Corpuscular Hemoglobin Concent 31 g/dL (31-37) Red Cell Distribution Width 17.1 % (11.5-14.5) Platelet Count 292 x10^3/uL (140-400) Neutrophils (%) (Auto) 79 % (31-73) Lymphocytes (%) (Auto) 11 % (24-48) Monocytes (%) (Auto) 6 % (0-9) Eosinophils (%) (Auto) 5 % (0-3) Basophils (%) (Auto) 0 % (0-3) Neutrophils # (Auto) 13.8 x10^3uL (1.8-7.7) Lymphocytes # (Auto) 1.9 x10^3/uL (1.0-4.8) Monocytes # (Auto) 1.0 x10^3/uL (0.0-1.1) Eosinophils # (Auto) 0.8 x10^3/uL (0.0-0.7) Basophils # (Auto) 0.0 x10^3/uL (0.0-0.2) Sodium Level 140 mmol/L (136-145) Potassium Level 6.4 mmol/L (3.5-5.1) Chloride Level 104 mmol/L (98-107) Carbon Dioxide Level 10 mmol/L (21-32) Anion Gap 26 (6-14) Blood Urea Nitrogen 27 mg/dL (7-20) Creatinine 1.8 mg/dL (0.6-1.0) Estimated GFR (Cockcroft-Gault) 33.2 BUN/Creatinine Ratio 15 (6-20) Glucose Level 234 mg/dL (70-99) Calcium Level 8.6 mg/dL (8.5-10.1) Magnesium Level 2.3 mg/dL (1.8-2.4) Total Bilirubin 0.7 mg/dL (0.2-1.0) Aspartate Amino Transf (AST/SGOT) 134 U/L (15-37) Alanine Aminotransferase (ALT/SGPT) 72 U/L (14-59) Alkaline Phosphatase 258 U/L (46-116) Total Protein 7.2 g/dL (6.4-8.2) Albumin 1.5 g/dL (3.4-5.0) Albumin/Globulin Ratio 0.3 (1.0-1.7) Test 10/11/16 06:12 10/11/16 07:12 10/11/16 07:35 10/11/16 09:10 O2 Saturation 87 % (92-99) 89 % (92-99) 94 % (92-99) Arterial Blood pH 6.88 (7.35-7.45) 7.01 (7.35-7.45) 7.10 (7.35-7.45) Arterial Blood pCO2 at Patient Temp 33 mmHg (35-46) 27 mmHg (35-46) 30 mmHg (35-46) Arterial Blood pO2 at Patient Temp 85 mmHg (65-108) 81 mmHg (65-108) 93 mmHg (65-108) Arterial Blood HCO3 6 mmol/L (21-28) 7 mmol/L (21-28) 9 mmol/L (21-28) Arterial Blood Base Excess -26 mmol/L (-3-3) -23 mmol/L (-3-3) -19 mmol/L (-3-3) FiO2 50 50 Oxyhemoglobin 89.2 % Methemoglobin 0.0 % (0.0-1.9) Carbon Monoxide, Quantitative 0.1 % (0.0-1.9) Glucose (Fingerstick) 185 mg/dL (70-99) Laboratory Tests Test 10/10/16 15:50 10/10/16 15:52 10/10/16 16:06 10/10/16 16:12 Glucose (Fingerstick) 329 mg/dL (70-99) O2 Saturation 88 % (92-99) Arterial Blood pH 7.29 (7.35-7.45) Arterial Blood pCO2 at Patient Temp 35 mmHg (35-46) Arterial Blood pO2 at Patient Temp 65 mmHg (65-108) Arterial Blood HCO3 16 mmol/L (21-28) Arterial Blood Base Excess -9 mmol/L (-3-3) FiO2 32 White Blood Count 18.5 x10^3/uL (4.0-11.0) Red Blood Count 3.00 x10^6/uL (3.50-5.40) Hemoglobin 9.1 g/dL (12.0-15.5) Hematocrit 28.8 % (36.0-47.0) Mean Corpuscular Volume 96 fL (79-100) Mean Corpuscular Hemoglobin 30 pg (25-35) Mean Corpuscular Hemoglobin Concent 32 g/dL (31-37) Red Cell Distribution Width 16.3 % (11.5-14.5) Platelet Count 295 x10^3/uL (140-400) Neutrophils (%) (Auto) 89 % (31-73) Lymphocytes (%) (Auto) 8 % (24-48) Monocytes (%) (Auto) 3 % (0-9) Eosinophils (%) (Auto) 0 % (0-3) Basophils (%) (Auto) 0 % (0-3) Neutrophils # (Auto) 16.4 x10^3uL (1.8-7.7) Lymphocytes # (Auto) 1.4 x10^3/uL (1.0-4.8) Monocytes # (Auto) 0.5 x10^3/uL (0.0-1.1) Eosinophils # (Auto) 0.0 x10^3/uL (0.0-0.7) Basophils # (Auto) 0.1 x10^3/uL (0.0-0.2) Segmented Neutrophils % 61 % (35-66) Band Neutrophils % 27 % (0-9) Lymphocytes % 8 % (24-48) Monocytes % 4 % (0-10) Nucleated Red Blood Cells 2 Toxic Granulation Slight Toxic Vacuolation Slight Platelet Estimate Adequate (ADEQUATE) Large Platelets Few Polychromasia Slight Macrocytosis Slight Sodium Level 136 mmol/L (136-145) Potassium Level 4.7 mmol/L (3.5-5.1) Chloride Level 99 mmol/L (98-107) Carbon Dioxide Level 20 mmol/L (21-32) Anion Gap 17 (6-14) Blood Urea Nitrogen 21 mg/dL (7-20) Creatinine 1.8 mg/dL (0.6-1.0) Estimated GFR (Cockcroft-Gault) 33.2 BUN/Creatinine Ratio 12 (6-20) Glucose Level 367 mg/dL (70-99) Calcium Level 9.1 mg/dL (8.5-10.1) Magnesium Level 2.1 mg/dL (1.8-2.4) Total Bilirubin 0.6 mg/dL (0.2-1.0) Aspartate Amino Transf (AST/SGOT) 49 U/L (15-37) Alanine Aminotransferase (ALT/SGPT) 53 U/L (14-59) Alkaline Phosphatase 482 U/L (46-116) Troponin I Quantitative 0.263 ng/mL (0.000-0.055) Total Protein 8.0 g/dL (6.4-8.2) Albumin 1.7 g/dL (3.4-5.0) Albumin/Globulin Ratio 0.3 (1.0-1.7) Urine Collection Type Unknown Urine Color Yellow Urine Clarity Clear Urine pH 5.5 Urine Specific [place] 1.025 Urine Protein 100 mg/dL (NEG-TRACE) Urine Glucose (UA) >=1000 mg/dL (NEG) Urine Ketones (Stick) Negative mg/dL (NEG) Urine Blood Negative (NEG) Urine Nitrite Negative (NEG) Urine Bilirubin Negative (NEG) Urine Urobilinogen Dipstick 0.2 mg/dL (0.2 mg/dL) Urine Leukocyte Esterase Negative (NEG) Urine RBC 0 /HPF (0-2) Urine WBC 1-4 /HPF (0-4) Urine Squamous Epithelial Cells Occ /LPF Urine Amorphous Sediment Present /HPF Urine Bacteria Few /HPF (0-FEW) Urine Mucus Slight /LPF Test 10/10/16 16:29 10/10/16 19:55 10/11/16 03:51 10/11/16 06:00 Prothrombin Time 17.5 SEC (11.7-14.0) Prothromb Time International Ratio 1.5 (0.8-1.1) Lactic Acid Level 8.3 mmol/L (0.4-2.0) 7.0 mmol/L (0.4-2.0) 16.6 mmol/L (0.4-2.0) Ammonia 55 mcmol/L (11-34) Glucose (Fingerstick) 288 mg/dL (70-99) White Blood Count 17.6 x10^3/uL (4.0-11.0) Red Blood Count 2.87 x10^6/uL (3.50-5.40) Hemoglobin 8.9 g/dL (12.0-15.5) Hematocrit 29.0 % (36.0-47.0) Mean Corpuscular Volume 101 fL (79-100) Mean Corpuscular Hemoglobin 31 pg (25-35) Mean Corpuscular Hemoglobin Concent 31 g/dL (31-37) Red Cell Distribution Width 17.1 % (11.5-14.5) Platelet Count 292 x10^3/uL (140-400) Neutrophils (%) (Auto) 79 % (31-73) Lymphocytes (%) (Auto) 11 % (24-48) Monocytes (%) (Auto) 6 % (0-9) Eosinophils (%) (Auto) 5 % (0-3) Basophils (%) (Auto) 0 % (0-3) Neutrophils # (Auto) 13.8 x10^3uL (1.8-7.7) Lymphocytes # (Auto) 1.9 x10^3/uL (1.0-4.8) Monocytes # (Auto) 1.0 x10^3/uL (0.0-1.1) Eosinophils # (Auto) 0.8 x10^3/uL (0.0-0.7) Basophils # (Auto) 0.0 x10^3/uL (0.0-0.2) Sodium Level 140 mmol/L (136-145) Potassium Level 6.4 mmol/L (3.5-5.1) Chloride Level 104 mmol/L (98-107) Carbon Dioxide Level 10 mmol/L (21-32) Anion Gap 26 (6-14) Blood Urea Nitrogen 27 mg/dL (7-20) Creatinine 1.8 mg/dL (0.6-1.0) Estimated GFR (Cockcroft-Gault) 33.2 BUN/Creatinine Ratio 15 (6-20) Glucose Level 234 mg/dL (70-99) Calcium Level 8.6 mg/dL (8.5-10.1) Magnesium Level 2.3 mg/dL (1.8-2.4) Total Bilirubin 0.7 mg/dL (0.2-1.0) Aspartate Amino Transf (AST/SGOT) 134 U/L (15-37) Alanine Aminotransferase (ALT/SGPT) 72 U/L (14-59) Alkaline Phosphatase 258 U/L (46-116) Total Protein 7.2 g/dL (6.4-8.2) Albumin 1.5 g/dL (3.4-5.0) Albumin/Globulin Ratio 0.3 (1.0-1.7) Test 10/11/16 06:12 10/11/16 07:12 10/11/16 07:35 10/11/16 09:10 O2 Saturation 87 % (92-99) 89 % (92-99) 94 % (92-99) Arterial Blood pH 6.88 (7.35-7.45) 7.01 (7.35-7.45) 7.10 (7.35-7.45) Arterial Blood pCO2 at Patient Temp 33 mmHg (35-46) 27 mmHg (35-46) 30 mmHg (35-46) Arterial Blood pO2 at Patient Temp 85 mmHg (65-108) 81 mmHg (65-108) 93 mmHg (65-108) Arterial Blood HCO3 6 mmol/L (21-28) 7 mmol/L (21-28) 9 mmol/L (21-28) Arterial Blood Base Excess -26 mmol/L (-3-3) -23 mmol/L (-3-3) -19 mmol/L (-3-3) FiO2 50 50 Oxyhemoglobin 89.2 % Methemoglobin 0.0 % (0.0-1.9) Carbon Monoxide, Quantitative 0.1 % (0.0-1.9) Glucose (Fingerstick) 185 mg/dL (70-99) Microbiology 10/10/16 Blood Culture - Final, Complete Medications Current Medications Naloxone HCl (Narcan) 2 mg STK-MED ONCE .ROUTE ; Start 10/10/16 at 15:49; Stop at 15:50; Status DC Sodium Chloride 1,000 ml @ 1,000 mls/hr 1X ONCE IV Last administered on 15:56; Start 10/10/16 at 16:15; Stop 10/10/16 at 17:14; Status DC Naloxone HCl (Narcan) 0.4 mg 1X ONCE IV ; Start 10/10/16 at 16:15; Stop 10/10/16 at 16:16; Status DC Acetaminophen (Tylenol) 650 mg 1X ONCE PO Last administered on 10/10/16 16:47 ; Start 10/10/16 at 16:15; Stop 10/10/16 at 16:16; Status DC Ibuprofen (Motrin) 400 mg 1X ONCE PO Last administered on 10/10/16 16:47; Start 10/10/16 at 16:15; Stop 10/10/16 at 16:16; Status DC Naloxone HCl (Narcan) 2 mg 1X ONCE IV Last administered on 10/10/16 15:54; Start 10/10/16 at 16:30; Stop 10/10/16 at 16:32; Status DC Aspirin (Children'S Aspirin) 324 mg 1X ONCE PO Last administered on 10/10/16 16:56; Start 10/10/16 at 16:45; Stop 10/10/16 at 16:46; Status DC Lorazepam (Ativan) 1 mg 1X ONCE IV Last administered on 10/10/16 17:59; Start 10/10/16 at 18:00; Stop 10/10/16 at 18:01; Status DC Ringer's Solution 1,000 ml @ 999 mls/hr 1X ONCE IV Last administered on 18:02; Start 10/10/16 at 18:00; Stop 10/10/16 at 19:00; Status DC Ringer's Solution 1,000 ml @ 999 mls/hr 1X ONCE IV Last administered on 18:36; Start 10/10/16 at 18:00; Stop 10/10/16 at 19:00; Status DC Piperacillin Sod/ Tazobactam Sod 3.375 gm/Sodium Chloride 50 ml @ 100 mls/hr 1X ONCE IV Last administered on 10/10/16 18:43; Start 10/10/16 at 18:45; Stop 10/10/16 at 19:14; Status DC Ondansetron HCl (Zofran) 4 mg PRN Q8HRS PRN IV NAUSEA/VOMITING; Start 10/10/16 at 19:00; Stop 10/11/16 at 18:59 Acetaminophen (Tylenol) 650 mg PRN Q4HRS PRN PO FEVER Last administered on 02:07; Start 10/10/16 at 19:00; Stop 10/11/16 at 18:59 Norepinephrine Bitartrate 250 ml @ 1.875 mls/ hr 1X ONCE IV Last administered on 10/10/16 18:58; Start 10/10/16 at 19:00; Stop 10/11/16 at 09:11; Status DC Norepinephrine Bitartrate 250 ml @ 0 mls/hr 1X ONCE IV ; Start 10/10/16 at 19:00 ; Stop 10/10/16 at 19:01; Status Cancel Amino Acids/ Glycerin/ Electrolytes 1,000 ml @ 80 mls/hr [id number] IV ; Start 10/10/16 at 19:15; Stop 10/10/16 at 19:20; Status DC Famotidine (Pepcid) 20 mg QHS IVP ; Start 10/10/16 at 21:00; Stop 10/10/16 at 21: 00; Status DC Heparin Sodium (Porcine) (Heparin Sq) 5,000 unit Q8HRS SQ ; Start 10/10/16 at 22: 00; Stop 10/10/16 at 22:00; Status DC Piperacillin Sod/ Tazobactam Sod 3.375 gm/Sodium Chloride 50 ml @ 100 mls/hr Q6HRS IV ; Start 10/11/16 at 00:00; Stop 10/11/16 at 00:00; Status DC Piperacillin Sod/ Tazobactam Sod (Zosyn Per Pharmacy) 1 each PRN DAILY PRN MC SEE COMMENTS; Start 10/10/16 at 19:15; Stop 10/10/16 at 19:20; Status DC Vancomycin HCl 1.75 gm/Sodium Chloride 500 ml @ 250 mls/hr 1X ONCE IV ; Start 10/10/16 at 19:15; Stop 10/10/16 at 21:14; Status Cancel Vancomycin HCl (Vanco Per Pharmacy) 1 each PRN DAILY PRN MC SEE COMMENTS; Start 10/10/16 at 19:15; Stop 10/10/16 at 19:20; Status DC Info 1 each PRN DAILY PRN MC SEE COMMENTS Last administered on 10/11/16 09:30; Start 10/10/16 at 21:15 Amino Acids/ Glycerin/ Electrolytes 1,000 ml @ 80 mls/hr [id number] IV Last administered on 10/10/16 21:47; Start 10/10/16 at 21:15; Stop 10/11/16 at 21:00 Insulin Aspart (NovoLOG) 0-9 UNITS TIDWMEALS SQ ; Start 10/11/16 at 08:00 Dextrose (Dextrose 50%-Water Syringe) 12.5 gm PRN Q15MIN PRN IV SEE COMMENTS; Start 10/10/16 at 21:15 Sodium Chloride 2,000 ml @ 500 mls/hr 1X ONCE IV Last administered on 21:47; Start 10/10/16 at 21:30; Stop 10/11/16 at 01:29; Status DC Vancomycin HCl (Vanco Per Pharmacy) 1 each PRN DAILY PRN MC SEE COMMENTS Last administered on 10/11/16 09:26; Start 10/11/16 at 00:15 Piperacillin Sod/ Tazobactam Sod (Zosyn Per Pharmacy) 1 each PRN DAILY PRN MC SEE COMMENTS; Start 10/11/16 at 00:15 Piperacillin Sod/ Tazobactam Sod 3.375 gm/Sodium Chloride 50 ml @ 100 mls/hr Q6HRS IV Last administered on 10/11/16 07:12; Start 10/11/16 at 00:30 Vancomycin HCl 1.75 gm/Sodium Chloride 500 ml @ 250 mls/hr 1X ONCE IV ; Start 10/11/16 at 01:00; Stop 10/11/16 at 02:59; Status Cancel Vancomycin HCl 1.75 gm/Sodium Chloride 500 ml @ 250 mls/hr 1X ONCE IV Last administered on 10/11/16 00:23; Start 10/10/16 at 21:00; Stop 10/11/16 at 00:13; Status DC Vancomycin HCl 1.5 gm/Sodium Chloride 500 ml @ 250 mls/hr Q24H IV ; Start at 22:00 Vancomycin HCl 1 each 1X ONCE MC ; Start 10/12/16 at 21:30; Stop 10/12/16 at 21: 31 Morphine Sulfate 2 mg PRN Q2HR PRN IV SEVERE PAIN Last administered on 09:54; Start 10/11/16 at 04:30 Furosemide (Lasix) 40 mg 1X ONCE IVP Last administered on 10/11/16 04:46; Start 10/11/16 at 05:00; Stop 10/11/16 at 05:01; Status DC Lorazepam (Ativan) 0.5 mg PRN Q4HRS PRN IV ANXIETY / AGITATION; Start 10/11/16 at 04:30 Albuterol/ Ipratropium (Duoneb) 3 ml RTQID NEB Last administered on 10/11/16 07 :38; Start 10/11/16 at 08:00 Albuterol/ Ipratropium (Duoneb) 3 ml 1X ONCE NEB Last administered on 05:32; Start 10/11/16 at 05:45; Stop 10/11/16 at 05:46; Status DC Naloxone HCl (Narcan) 0.4 mg STK-MED ONCE .ROUTE ; Start 10/11/16 at 06:08; Stop 10/11/16 at 06:09; Status DC Sodium Bicarbonate 50 meq STK-MED ONCE .ROUTE ; Start 10/11/16 at 06:43; Stop 10/11/16 at 06:44; Status DC Vecuronium [place] (Norcuron Bolus) 10 mg STK-MED ONCE IV ; Start 10/11/16 at 07: 02; Stop 10/11/16 at 07:03; Status DC Phenylephrine HCl 1 mg STK-MED ONCE IV ; Start 10/11/16 at 07:04; Stop 10/11/16 at 07:05; Status DC Sodium Bicarbonate 75 meq/Dextrose 1,075 ml @ 75 mls/hr [id number] IV ; Start 10/11 at 08:00; Status Cancel Sodium Bicarbonate 100 meq 1X ONCE IV Last administered on 10/11/16 07:34; Start 10/11/16 at 07:30; Stop 10/11/16 at 07:31; Status DC Sodium Bicarbonate 50 meq STK-MED ONCE .ROUTE ; Start 10/11/16 at 07:28; Stop 10/11/16 at 07:29; Status DC Sodium Bicarbonate 150 meq/Dextrose 1,150 ml @ 75 mls/hr [id number] IV Last administered on 10/11/16 08:08; Start 10/11/16 at 08:00 Vasopressin 40 unit/Dextrose 102 ml @ 6 mls/hr CONT PRN IV SEE I/O RECORD Last administered on 10/11/16 08:53; Start 10/11/16 at 08:30 Epinephrine HCl 4 mg/Sodium Chloride 254 ml @ 0 mls/hr CONT PRN IV SEE I/O RECORD; Start 10/11/16 at 08:30 Norepinephrine Bitartrate 250 ml @ 0 mls/hr CONT PRN IV SEE I/O RECORD Last administered on 10/11/16 09:12; Start 10/11/16 at 09:15 Sodium Chloride 20 meq/Sodium Acetate 70 meq/ Magnesium Sulfate 10 meq/Calcium Gluconate 5 meq/ Multivitamins 10 ml/Chromium/ Copper/Manganese/ Seleni/Zn 1 ml / Total Parenteral Nutrition/Amino Acids/Dextrose/ Fat Emulsion Intravenous 1, 200 ml @ 50 mls/hr TPN CONT IV ; Start 10/11/16 at 22:00; Stop 10/12/16 at 21:59 Active Scripts Active Senna S Tablet (Sennosides/Docusate Sodium) 1 Each Tablet 1 Each PO DAILY Reported Tubersol (Tuberculin,Purif.prot.deriv.) 5 Tub Unit/0.1 Ml Vial 5 Tub ID UD Tpn Electrolytes Ii Iv Soln (Sodium/K+/Mag/Ca/Chlor/Acetate) 20 Ml Vial Ml IV CONT PRN Polyvinyl Alcohol 15 Ml Drops 15 Ml OP PRN Novolog Flexpen (Insulin Aspart) 100 Unit/1 Ml Insuln.pen Unknown Dose SQ TIDACHC Ms Contin (Morphine Sulfate) 15 Mg Tablet.er 15 Mg PO PRN DAILY PRN Megace Es (Megestrol Acetate) 625 Mg/5 Ml Oral.susp 600 Mg PO DAILY Lipitor (Atorvastatin Calcium) 20 Mg Tablet 20 Mg PO HS Hydrocodone-Apap 5-325 (Hydrocodone Bit/Acetaminophen) 1 Each Tablet 1 Tab PO PRN Q4HRS PRN Famotidine 20 Mg Tablet 20 Mg PO BID Celexa (Citalopram Hydrobromide) 40 Mg Tablet 1 Tab PO DAILY Bisacodyl 10 Mg Supp.rect 10 Mg RC PRN DAILY PRN Biotene Moisturizing Mouth (Saliva Stimulant Agents Comb.3) 44.3 Ml [place] 44.3 Ml MM PRN Acetaminophen 650 Mg/20.3 Ml Solution 650 Mg PO PRN Q6HRS PRN Basaglar Kwikpen U-100 (Insulin Glargine,Hum.rec.anlog) 100 Unit/1 Ml Insuln.pen 10 Unit SQ HS Lyrica (Pregabalin) 150 Mg Capsule 150 Mg PO BID 30 Days Buspirone Hcl 10 Mg Tablet 10 Mg PO BID Aspir 81 (Aspirin) 81 Mg Tablet. 1 Tab PO DAILY Vitals/I & O Vital Sign - Last 24 Hours 10/10/16 10/10/16 10/10/16 10/10/16 15:47 15:56 16:30 17:25 Temp 100.2 100.2 Pulse 105 112 104 100 Resp 14 16 20 20 B/P (MAP) 79/45 (56) 118/65 (82) 112/54 (73) 109/54 (72) Pulse Ox 95 92 92 91 O2 Delivery NonRebreather Mask Nasal Cannula Nasal Cannula Nasal Cannula O2 Flow Rate 15.0 3.0 3.0 3.0 10/10/16 10/10/16 10/10/16 10/10/16 18:06 18:24 18:32 18:39 Temp 98.0 98.0 Pulse 90 90 90 89 Resp 20 16 16 16 B/P (MAP) 99/52 (68) 71/49 (56) 84/52 (63) 86/50 (62) Pulse Ox 93 92 92 93 O2 Delivery Nasal Cannula Nasal Cannula Nasal Cannula Nasal Cannula O2 Flow Rate 3.0 2.0 3.0 3.0 10/10/16 10/10/16 10/10/16 10/10/16 18:45 18:50 18:58 19:05 Pulse 88 86 84 84 Resp 16 16 16 16 B/P (MAP) 83/54 (64) 76/46 (56) 78/49 (59) 87/50 (62) Pulse Ox 94 94 94 94 O2 Delivery Nasal Cannula Nasal Cannula Nasal Cannula Nasal Cannula O2 Flow Rate 3.0 3.0 3.0 3.0 10/10/16 10/10/16 10/10/16 10/10/16 19:15 19:25 19:35 20:00 Pulse 84 86 88 Resp 16 16 16 B/P (MAP) 110/54 (72) 104/57 (73) 99/57 (71) Pulse Ox 94 94 94 O2 Delivery Nasal Cannula Nasal Cannula Nasal Cannula Nasal Cannula O2 Flow Rate 3.0 3.0 3.0 3.0 10/10/16 10/10/16 10/10/16 10/10/16 20:00 20:15 20:30 20:45 Temp 96.9 97.1 96.9 97.1 Pulse 88 88 90 88 Resp 22 20 22 22 B/P (MAP) 106/51 (69) 106/55 (72) 105/57 (73) 95/53 (67) Pulse Ox 96 96 96 95 O2 Delivery Nasal Cannula Nasal Cannula Nasal Cannula Nasal Cannula O2 Flow Rate 3.0 3.0 2.0 2.0 10/10/16 10/10/16 10/10/16 10/10/16 21:00 21:30 22:00 23:00 Temp 97.9 97.9 Pulse 88 88 86 88 Resp 20 20 20 18 B/P (MAP) 98/55 (69) 102/54 (70) 93/52 (66) 103/57 (72) Pulse Ox 97 97 98 96 O2 Delivery Nasal Cannula Nasal Cannula Nasal Cannula Nasal Cannula O2 Flow Rate 2.0 2.0 2.0 2.0 10/10/16 10/11/16 10/11/16 10/11/16 23:59 00:00 01:00 02:00 Pulse 88 87 88 Resp 20 20 20 B/P (MAP) 106/51 (69) 113/69 (84) 100/69 (79) Pulse Ox 97 97 95 O2 Delivery Nasal Cannula Nasal Cannula Nasal Cannula Nasal Cannula O2 Flow Rate 2.0 2.0 2.0 2.0 10/11/16 10/11/16 10/11/16 10/11/16 03:00 04:00 04:00 04:46 Temp 98.0 98.0 Pulse 78 88 Resp 22 34 34 B/P (MAP) 91/49 (63) 111/55 (73) Pulse Ox 95 90 92 O2 Delivery Nasal Cannula Nasal Cannula Nasal Cannula Nasal Cannula O2 Flow Rate 2.0 2.0 2.0 2.0 10/11/16 10/11/16 10/11/16 10/11/16 05:00 05:16 05:32 05:45 Pulse 72 Resp 20 20 B/P (MAP) 107/59 (75) Pulse Ox 93 92 91 O2 Delivery Nasal Cannula Nasal Cannula Venturi Mask O2 Flow Rate 3.0 4.0 15.0 10/11/16 10/11/16 10/11/16 10/11/16 06:00 06:30 07:00 07:10 Temp 97.7 97.7 Pulse 72 93 Resp 20 20 B/P (MAP) 107/59 (75) 117/60 (79) Pulse Ox 91 92 94 95 O2 Delivery Venturi Mask BiPAP/CPAP BiPAP/CPAP BiPAP/CPAP O2 Flow Rate 3.0 10/11/16 10/11/16 10/11/16 10/11/16 07:53 07:58 09:10 09:13 Pulse 90 93 Resp 22 20 B/P (MAP) 117/64 (81) 110/61 (77) Pulse Ox 98 96 97 O2 Delivery Bi-pap BiPAP/CPAP BiPAP/CPAP BiPAP/CPAP 10/11/16 10/11/16 10/11/16 10/11/16 09:54 10:09 10:16 11:17 Pulse 91 88 Resp 22 20 B/P (MAP) 115/61 (79) 104/41 (62) Pulse Ox 97 98 98 97 O2 Delivery BiPAP/CPAP BiPAP/CPAP BiPAP/CPAP BiPAP/CPAP O2 Flow Rate 3.0 3.0 10/11/16 11:39 O2 Delivery Bi-pap O2 Flow Rate 3.0 Intake and Output 10/11/16 10/11/16 10/12/16 14:59 22:59 06:59 Output Total 68 ml Balance -68 ml Problem List Problems Medical Problems: (1) Cancer Status: Acute (2) Fever Status: Acute (3) Hypotension Status: Acute (4) Lactic acid acidosis Status: Acute (5) Opiate overdose Status: Acute (6) Pleural effusion Status: Acute (7) PP (pneumoperitoneum) Status: Acute Assessment Abd pain- with carcinomatosis, most likely multifactorial in etiology, palliative measures recommended. JACK BETANCOURT MD Oct 11, 2016 11:46
--- NOTE | 2016-10-11 12:55 | PDOC ---
Infectious Disease Note Vital Sign Vital Signs Vital Signs Date Time Temp Pulse Resp B/P (MAP) Pulse Ox O2 Delivery O2 Flow Rate FiO2 10/11/16 11:39 Bi-pap 3.0 10/11/16 11:17 88 20 104/41 (62) 97 10/11/16 07:00 97.7 97.7 Labs Lab Laboratory Tests Test 10/10/16 15:50 10/10/16 15:52 10/10/16 16:06 10/10/16 16:12 Glucose (Fingerstick) 329 mg/dL (70-99) O2 Saturation 88 % (92-99) Arterial Blood pH 7.29 (7.35-7.45) Arterial Blood pCO2 at Patient Temp 35 mmHg (35-46) Arterial Blood pO2 at Patient Temp 65 mmHg (65-108) Arterial Blood HCO3 16 mmol/L (21-28) Arterial Blood Base Excess -9 mmol/L (-3-3) FiO2 32 White Blood Count 18.5 x10^3/uL (4.0-11.0) Red Blood Count 3.00 x10^6/uL (3.50-5.40) Hemoglobin 9.1 g/dL (12.0-15.5) Hematocrit 28.8 % (36.0-47.0) Mean Corpuscular Volume 96 fL (79-100) Mean Corpuscular Hemoglobin 30 pg (25-35) Mean Corpuscular Hemoglobin Concent 32 g/dL (31-37) Red Cell Distribution Width 16.3 % (11.5-14.5) Platelet Count 295 x10^3/uL (140-400) Neutrophils (%) (Auto) 89 % (31-73) Lymphocytes (%) (Auto) 8 % (24-48) Monocytes (%) (Auto) 3 % (0-9) Eosinophils (%) (Auto) 0 % (0-3) Basophils (%) (Auto) 0 % (0-3) Neutrophils # (Auto) 16.4 x10^3uL (1.8-7.7) Lymphocytes # (Auto) 1.4 x10^3/uL (1.0-4.8) Monocytes # (Auto) 0.5 x10^3/uL (0.0-1.1) Eosinophils # (Auto) 0.0 x10^3/uL (0.0-0.7) Basophils # (Auto) 0.1 x10^3/uL (0.0-0.2) Segmented Neutrophils % 61 % (35-66) Band Neutrophils % 27 % (0-9) Lymphocytes % 8 % (24-48) Monocytes % 4 % (0-10) Nucleated Red Blood Cells 2 Toxic Granulation Slight Toxic Vacuolation Slight Platelet Estimate Adequate (ADEQUATE) Large Platelets Few Polychromasia Slight Macrocytosis Slight Sodium Level 136 mmol/L (136-145) Potassium Level 4.7 mmol/L (3.5-5.1) Chloride Level 99 mmol/L (98-107) Carbon Dioxide Level 20 mmol/L (21-32) Anion Gap 17 (6-14) Blood Urea Nitrogen 21 mg/dL (7-20) Creatinine 1.8 mg/dL (0.6-1.0) Estimated GFR (Cockcroft-Gault) 33.2 BUN/Creatinine Ratio 12 (6-20) Glucose Level 367 mg/dL (70-99) Calcium Level 9.1 mg/dL (8.5-10.1) Magnesium Level 2.1 mg/dL (1.8-2.4) Total Bilirubin 0.6 mg/dL (0.2-1.0) Aspartate Amino Transf (AST/SGOT) 49 U/L (15-37) Alanine Aminotransferase (ALT/SGPT) 53 U/L (14-59) Alkaline Phosphatase 482 U/L (46-116) Troponin I Quantitative 0.263 ng/mL (0.000-0.055) Total Protein 8.0 g/dL (6.4-8.2) Albumin 1.7 g/dL (3.4-5.0) Albumin/Globulin Ratio 0.3 (1.0-1.7) Urine Collection Type Unknown Urine Color Yellow Urine Clarity Clear Urine pH 5.5 Urine Specific [place] 1.025 Urine Protein 100 mg/dL (NEG-TRACE) Urine Glucose (UA) >=1000 mg/dL (NEG) Urine Ketones (Stick) Negative mg/dL (NEG) Urine Blood Negative (NEG) Urine Nitrite Negative (NEG) Urine Bilirubin Negative (NEG) Urine Urobilinogen Dipstick 0.2 mg/dL (0.2 mg/dL) Urine Leukocyte Esterase Negative (NEG) Urine RBC 0 /HPF (0-2) Urine WBC 1-4 /HPF (0-4) Urine Squamous Epithelial Cells Occ /LPF Urine Amorphous Sediment Present /HPF Urine Bacteria Few /HPF (0-FEW) Urine Mucus Slight /LPF Test 10/10/16 16:29 10/10/16 19:55 10/11/16 03:51 10/11/16 06:00 Prothrombin Time 17.5 SEC (11.7-14.0) Prothromb Time International Ratio 1.5 (0.8-1.1) Lactic Acid Level 8.3 mmol/L (0.4-2.0) 7.0 mmol/L (0.4-2.0) 16.6 mmol/L (0.4-2.0) Ammonia 55 mcmol/L (11-34) Glucose (Fingerstick) 288 mg/dL (70-99) White Blood Count 17.6 x10^3/uL (4.0-11.0) Red Blood Count 2.87 x10^6/uL (3.50-5.40) Hemoglobin 8.9 g/dL (12.0-15.5) Hematocrit 29.0 % (36.0-47.0) Mean Corpuscular Volume 101 fL (79-100) Mean Corpuscular Hemoglobin 31 pg (25-35) Mean Corpuscular Hemoglobin Concent 31 g/dL (31-37) Red Cell Distribution Width 17.1 % (11.5-14.5) Platelet Count 292 x10^3/uL (140-400) Neutrophils (%) (Auto) 79 % (31-73) Lymphocytes (%) (Auto) 11 % (24-48) Monocytes (%) (Auto) 6 % (0-9) Eosinophils (%) (Auto) 5 % (0-3) Basophils (%) (Auto) 0 % (0-3) Neutrophils # (Auto) 13.8 x10^3uL (1.8-7.7) Lymphocytes # (Auto) 1.9 x10^3/uL (1.0-4.8) Monocytes # (Auto) 1.0 x10^3/uL (0.0-1.1) Eosinophils # (Auto) 0.8 x10^3/uL (0.0-0.7) Basophils # (Auto) 0.0 x10^3/uL (0.0-0.2) Sodium Level 140 mmol/L (136-145) Potassium Level 6.4 mmol/L (3.5-5.1) Chloride Level 104 mmol/L (98-107) Carbon Dioxide Level 10 mmol/L (21-32) Anion Gap 26 (6-14) Blood Urea Nitrogen 27 mg/dL (7-20) Creatinine 1.8 mg/dL (0.6-1.0) Estimated GFR (Cockcroft-Gault) 33.2 BUN/Creatinine Ratio 15 (6-20) Glucose Level 234 mg/dL (70-99) Calcium Level 8.6 mg/dL (8.5-10.1) Magnesium Level 2.3 mg/dL (1.8-2.4) Total Bilirubin 0.7 mg/dL (0.2-1.0) Aspartate Amino Transf (AST/SGOT) 134 U/L (15-37) Alanine Aminotransferase (ALT/SGPT) 72 U/L (14-59) Alkaline Phosphatase 258 U/L (46-116) Total Protein 7.2 g/dL (6.4-8.2) Albumin 1.5 g/dL (3.4-5.0) Albumin/Globulin Ratio 0.3 (1.0-1.7) Test 10/11/16 06:12 10/11/16 07:12 10/11/16 07:35 10/11/16 09:10 O2 Saturation 87 % (92-99) 89 % (92-99) 94 % (92-99) Arterial Blood pH 6.88 (7.35-7.45) 7.01 (7.35-7.45) 7.10 (7.35-7.45) Arterial Blood pCO2 at Patient Temp 33 mmHg (35-46) 27 mmHg (35-46) 30 mmHg (35-46) Arterial Blood pO2 at Patient Temp 85 mmHg (65-108) 81 mmHg (65-108) 93 mmHg (65-108) Arterial Blood HCO3 6 mmol/L (21-28) 7 mmol/L (21-28) 9 mmol/L (21-28) Arterial Blood Base Excess -26 mmol/L (-3-3) -23 mmol/L (-3-3) -19 mmol/L (-3-3) FiO2 50 50 Oxyhemoglobin 89.2 % Methemoglobin 0.0 % (0.0-1.9) Carbon Monoxide, Quantitative 0.1 % (0.0-1.9) Glucose (Fingerstick) 185 mg/dL (70-99) Micro BLOOD CULTURE Final GRAM POSITIVE COCCI GROWTH IN ONE OF TWO BOTTLES OF ONE SET Objective Assessment Septic shock with likely peritoneal infection, POA, 10/10, on vasopressor support GPC bacteremia, POA 10/10. ? line (Port-a-cath > 2 yrs old and PICC since 09/26 ) Lactic acidosis Pneumoperitoneum s/p expl lab, GUERO & g-tube placement on 09/25. Abdominal wound Acute encephalopathy NICANOR w/ decrease UO Acute respiratory failure on BiPAP Large left pleural effusion, partial consolidation and collapse of the left lung. Recurrent uterine cancer with metastasis Plan Plan of Care Given renal function, hold further vanc and continue Zosyn Await GPC ID Monitor labs Now DNR per family wishes Critically ill, patient not likely to survive hospitalization Thank you [phone] Attending Co-Sign The patient was seen and interviewed as well as examined at the bedside. The chart was reviewed. The case was discussed. Agree with the plan of care. pt is very sick, d/w family , is not going to make it. Not a surgical candidate at this stage. HARJEET VIDALES APRN Oct 11, 2016 12:55 DANAE CAVANAUGH MD Oct 11, 2016 14:27
--- NOTE | 2016-10-11 13:33 | PDOC ---
PROGRESS NOTES Subjective Subjective pt obtunded, NRB intact Objective Objective Vital Signs Date Time Temp Pulse Resp B/P (MAP) Pulse Ox O2 Delivery O2 Flow Rate FiO2 10/11/16 12:06 87 20 144/59 (87) 98 BiPAP/CPAP 10/11/16 11:39 3.0 10/11/16 07:00 97.7 97.7 Intake and Output 10/12/16 07:00 Output Total 75 ml Balance -75 ml Output Urine Total 75 ml Physical Exam Abdomen: Soft (bottom of incision with some mason drainage) Lungs: Other (diminished left side) Assessment Assessment Problems Medical Problems: (1) Cancer Status: Acute (2) Fever Status: Acute (3) Hypotension Status: Acute (4) Lactic acid acidosis Status: Acute (5) Opiate overdose Status: Acute (6) Pleural effusion Status: Acute (7) PP (pneumoperitoneum) Status: Acute Plan Plan of Care Multi organ dysfunction, profound acidosis, metastatic adenocarcinoma; recommend palliative treatment, no surgical options; I discussed with the family the situation. Comment Review of Relevant I have reviewed the following items anita (where applicable) has been applied. Labs Laboratory Tests Test 10/10/16 15:50 10/10/16 15:52 10/10/16 16:06 10/10/16 16:12 Glucose (Fingerstick) 329 mg/dL (70-99) O2 Saturation 88 % (92-99) Arterial Blood pH 7.29 (7.35-7.45) Arterial Blood pCO2 at Patient Temp 35 mmHg (35-46) Arterial Blood pO2 at Patient Temp 65 mmHg (65-108) Arterial Blood HCO3 16 mmol/L (21-28) Arterial Blood Base Excess -9 mmol/L (-3-3) FiO2 32 White Blood Count 18.5 x10^3/uL (4.0-11.0) Red Blood Count 3.00 x10^6/uL (3.50-5.40) Hemoglobin 9.1 g/dL (12.0-15.5) Hematocrit 28.8 % (36.0-47.0) Mean Corpuscular Volume 96 fL (79-100) Mean Corpuscular Hemoglobin 30 pg (25-35) Mean Corpuscular Hemoglobin Concent 32 g/dL (31-37) Red Cell Distribution Width 16.3 % (11.5-14.5) Platelet Count 295 x10^3/uL (140-400) Neutrophils (%) (Auto) 89 % (31-73) Lymphocytes (%) (Auto) 8 % (24-48) Monocytes (%) (Auto) 3 % (0-9) Eosinophils (%) (Auto) 0 % (0-3) Basophils (%) (Auto) 0 % (0-3) Neutrophils # (Auto) 16.4 x10^3uL (1.8-7.7) Lymphocytes # (Auto) 1.4 x10^3/uL (1.0-4.8) Monocytes # (Auto) 0.5 x10^3/uL (0.0-1.1) Eosinophils # (Auto) 0.0 x10^3/uL (0.0-0.7) Basophils # (Auto) 0.1 x10^3/uL (0.0-0.2) Segmented Neutrophils % 61 % (35-66) Band Neutrophils % 27 % (0-9) Lymphocytes % 8 % (24-48) Monocytes % 4 % (0-10) Nucleated Red Blood Cells 2 Toxic Granulation Slight Toxic Vacuolation Slight Platelet Estimate Adequate (ADEQUATE) Large Platelets Few Polychromasia Slight Macrocytosis Slight Sodium Level 136 mmol/L (136-145) Potassium Level 4.7 mmol/L (3.5-5.1) Chloride Level 99 mmol/L (98-107) Carbon Dioxide Level 20 mmol/L (21-32) Anion Gap 17 (6-14) Blood Urea Nitrogen 21 mg/dL (7-20) Creatinine 1.8 mg/dL (0.6-1.0) Estimated GFR (Cockcroft-Gault) 33.2 BUN/Creatinine Ratio 12 (6-20) Glucose Level 367 mg/dL (70-99) Calcium Level 9.1 mg/dL (8.5-10.1) Magnesium Level 2.1 mg/dL (1.8-2.4) Total Bilirubin 0.6 mg/dL (0.2-1.0) Aspartate Amino Transf (AST/SGOT) 49 U/L (15-37) Alanine Aminotransferase (ALT/SGPT) 53 U/L (14-59) Alkaline Phosphatase 482 U/L (46-116) Troponin I Quantitative 0.263 ng/mL (0.000-0.055) Total Protein 8.0 g/dL (6.4-8.2) Albumin 1.7 g/dL (3.4-5.0) Albumin/Globulin Ratio 0.3 (1.0-1.7) Urine Collection Type Unknown Urine Color Yellow Urine Clarity Clear Urine pH 5.5 Urine Specific [place] 1.025 Urine Protein 100 mg/dL (NEG-TRACE) Urine Glucose (UA) >=1000 mg/dL (NEG) Urine Ketones (Stick) Negative mg/dL (NEG) Urine Blood Negative (NEG) Urine Nitrite Negative (NEG) Urine Bilirubin Negative (NEG) Urine Urobilinogen Dipstick 0.2 mg/dL (0.2 mg/dL) Urine Leukocyte Esterase Negative (NEG) Urine RBC 0 /HPF (0-2) Urine WBC 1-4 /HPF (0-4) Urine Squamous Epithelial Cells Occ /LPF Urine Amorphous Sediment Present /HPF Urine Bacteria Few /HPF (0-FEW) Urine Mucus Slight /LPF Test 10/10/16 16:29 10/10/16 19:55 10/11/16 03:51 10/11/16 06:00 Prothrombin Time 17.5 SEC (11.7-14.0) Prothromb Time International Ratio 1.5 (0.8-1.1) Lactic Acid Level 8.3 mmol/L (0.4-2.0) 7.0 mmol/L (0.4-2.0) 16.6 mmol/L (0.4-2.0) Ammonia 55 mcmol/L (11-34) Glucose (Fingerstick) 288 mg/dL (70-99) White Blood Count 17.6 x10^3/uL (4.0-11.0) Red Blood Count 2.87 x10^6/uL (3.50-5.40) Hemoglobin 8.9 g/dL (12.0-15.5) Hematocrit 29.0 % (36.0-47.0) Mean Corpuscular Volume 101 fL (79-100) Mean Corpuscular Hemoglobin 31 pg (25-35) Mean Corpuscular Hemoglobin Concent 31 g/dL (31-37) Red Cell Distribution Width 17.1 % (11.5-14.5) Platelet Count 292 x10^3/uL (140-400) Neutrophils (%) (Auto) 79 % (31-73) Lymphocytes (%) (Auto) 11 % (24-48) Monocytes (%) (Auto) 6 % (0-9) Eosinophils (%) (Auto) 5 % (0-3) Basophils (%) (Auto) 0 % (0-3) Neutrophils # (Auto) 13.8 x10^3uL (1.8-7.7) Lymphocytes # (Auto) 1.9 x10^3/uL (1.0-4.8) Monocytes # (Auto) 1.0 x10^3/uL (0.0-1.1) Eosinophils # (Auto) 0.8 x10^3/uL (0.0-0.7) Basophils # (Auto) 0.0 x10^3/uL (0.0-0.2) Sodium Level 140 mmol/L (136-145) Potassium Level 6.4 mmol/L (3.5-5.1) Chloride Level 104 mmol/L (98-107) Carbon Dioxide Level 10 mmol/L (21-32) Anion Gap 26 (6-14) Blood Urea Nitrogen 27 mg/dL (7-20) Creatinine 1.8 mg/dL (0.6-1.0) Estimated GFR (Cockcroft-Gault) 33.2 BUN/Creatinine Ratio 15 (6-20) Glucose Level 234 mg/dL (70-99) Calcium Level 8.6 mg/dL (8.5-10.1) Magnesium Level 2.3 mg/dL (1.8-2.4) Total Bilirubin 0.7 mg/dL (0.2-1.0) Aspartate Amino Transf (AST/SGOT) 134 U/L (15-37) Alanine Aminotransferase (ALT/SGPT) 72 U/L (14-59) Alkaline Phosphatase 258 U/L (46-116) Total Protein 7.2 g/dL (6.4-8.2) Albumin 1.5 g/dL (3.4-5.0) Albumin/Globulin Ratio 0.3 (1.0-1.7) Test 10/11/16 06:12 10/11/16 07:12 10/11/16 07:35 10/11/16 09:10 O2 Saturation 87 % (92-99) 89 % (92-99) 94 % (92-99) Arterial Blood pH 6.88 (7.35-7.45) 7.01 (7.35-7.45) 7.10 (7.35-7.45) Arterial Blood pCO2 at Patient Temp 33 mmHg (35-46) 27 mmHg (35-46) 30 mmHg (35-46) Arterial Blood pO2 at Patient Temp 85 mmHg (65-108) 81 mmHg (65-108) 93 mmHg (65-108) Arterial Blood HCO3 6 mmol/L (21-28) 7 mmol/L (21-28) 9 mmol/L (21-28) Arterial Blood Base Excess -26 mmol/L (-3-3) -23 mmol/L (-3-3) -19 mmol/L (-3-3) FiO2 50 50 Oxyhemoglobin 89.2 % Methemoglobin 0.0 % (0.0-1.9) Carbon Monoxide, Quantitative 0.1 % (0.0-1.9) Glucose (Fingerstick) 185 mg/dL (70-99) Test 10/11/16 12:24 Glucose (Fingerstick) 168 mg/dL (70-99) Laboratory Tests Test 10/10/16 15:50 10/10/16 15:52 10/10/16 16:06 10/10/16 16:12 Glucose (Fingerstick) 329 mg/dL (70-99) O2 Saturation 88 % (92-99) Arterial Blood pH 7.29 (7.35-7.45) Arterial Blood pCO2 at Patient Temp 35 mmHg (35-46) Arterial Blood pO2 at Patient Temp 65 mmHg (65-108) Arterial Blood HCO3 16 mmol/L (21-28) Arterial Blood Base Excess -9 mmol/L (-3-3) FiO2 32 White Blood Count 18.5 x10^3/uL (4.0-11.0) Red Blood Count 3.00 x10^6/uL (3.50-5.40) Hemoglobin 9.1 g/dL (12.0-15.5) Hematocrit 28.8 % (36.0-47.0) Mean Corpuscular Volume 96 fL (79-100) Mean Corpuscular Hemoglobin 30 pg (25-35) Mean Corpuscular Hemoglobin Concent 32 g/dL (31-37) Red Cell Distribution Width 16.3 % (11.5-14.5) Platelet Count 295 x10^3/uL (140-400) Neutrophils (%) (Auto) 89 % (31-73) Lymphocytes (%) (Auto) 8 % (24-48) Monocytes (%) (Auto) 3 % (0-9) Eosinophils (%) (Auto) 0 % (0-3) Basophils (%) (Auto) 0 % (0-3) Neutrophils # (Auto) 16.4 x10^3uL (1.8-7.7) Lymphocytes # (Auto) 1.4 x10^3/uL (1.0-4.8) Monocytes # (Auto) 0.5 x10^3/uL (0.0-1.1) Eosinophils # (Auto) 0.0 x10^3/uL (0.0-0.7) Basophils # (Auto) 0.1 x10^3/uL (0.0-0.2) Segmented Neutrophils % 61 % (35-66) Band Neutrophils % 27 % (0-9) Lymphocytes % 8 % (24-48) Monocytes % 4 % (0-10) Nucleated Red Blood Cells 2 Toxic Granulation Slight Toxic Vacuolation Slight Platelet Estimate Adequate (ADEQUATE) Large Platelets Few Polychromasia Slight Macrocytosis Slight Sodium Level 136 mmol/L (136-145) Potassium Level 4.7 mmol/L (3.5-5.1) Chloride Level 99 mmol/L (98-107) Carbon Dioxide Level 20 mmol/L (21-32) Anion Gap 17 (6-14) Blood Urea Nitrogen 21 mg/dL (7-20) Creatinine 1.8 mg/dL (0.6-1.0) Estimated GFR (Cockcroft-Gault) 33.2 BUN/Creatinine Ratio 12 (6-20) Glucose Level 367 mg/dL (70-99) Calcium Level 9.1 mg/dL (8.5-10.1) Magnesium Level 2.1 mg/dL (1.8-2.4) Total Bilirubin 0.6 mg/dL (0.2-1.0) Aspartate Amino Transf (AST/SGOT) 49 U/L (15-37) Alanine Aminotransferase (ALT/SGPT) 53 U/L (14-59) Alkaline Phosphatase 482 U/L (46-116) Troponin I Quantitative 0.263 ng/mL (0.000-0.055) Total Protein 8.0 g/dL (6.4-8.2) Albumin 1.7 g/dL (3.4-5.0) Albumin/Globulin Ratio 0.3 (1.0-1.7) Urine Collection Type Unknown Urine Color Yellow Urine Clarity Clear Urine pH 5.5 Urine Specific [place] 1.025 Urine Protein 100 mg/dL (NEG-TRACE) Urine Glucose (UA) >=1000 mg/dL (NEG) Urine Ketones (Stick) Negative mg/dL (NEG) Urine Blood Negative (NEG) Urine Nitrite Negative (NEG) Urine Bilirubin Negative (NEG) Urine Urobilinogen Dipstick 0.2 mg/dL (0.2 mg/dL) Urine Leukocyte Esterase Negative (NEG) Urine RBC 0 /HPF (0-2) Urine WBC 1-4 /HPF (0-4) Urine Squamous Epithelial Cells Occ /LPF Urine Amorphous Sediment Present /HPF Urine Bacteria Few /HPF (0-FEW) Urine Mucus Slight /LPF Test 10/10/16 16:29 10/10/16 19:55 10/11/16 03:51 10/11/16 06:00 Prothrombin Time 17.5 SEC (11.7-14.0) Prothromb Time International Ratio 1.5 (0.8-1.1) Lactic Acid Level 8.3 mmol/L (0.4-2.0) 7.0 mmol/L (0.4-2.0) 16.6 mmol/L (0.4-2.0) Ammonia 55 mcmol/L (11-34) Glucose (Fingerstick) 288 mg/dL (70-99) White Blood Count 17.6 x10^3/uL (4.0-11.0) Red Blood Count 2.87 x10^6/uL (3.50-5.40) Hemoglobin 8.9 g/dL (12.0-15.5) Hematocrit 29.0 % (36.0-47.0) Mean Corpuscular Volume 101 fL (79-100) Mean Corpuscular Hemoglobin 31 pg (25-35) Mean Corpuscular Hemoglobin Concent 31 g/dL (31-37) Red Cell Distribution Width 17.1 % (11.5-14.5) Platelet Count 292 x10^3/uL (140-400) Neutrophils (%) (Auto) 79 % (31-73) Lymphocytes (%) (Auto) 11 % (24-48) Monocytes (%) (Auto) 6 % (0-9) Eosinophils (%) (Auto) 5 % (0-3) Basophils (%) (Auto) 0 % (0-3) Neutrophils # (Auto) 13.8 x10^3uL (1.8-7.7) Lymphocytes # (Auto) 1.9 x10^3/uL (1.0-4.8) Monocytes # (Auto) 1.0 x10^3/uL (0.0-1.1) Eosinophils # (Auto) 0.8 x10^3/uL (0.0-0.7) Basophils # (Auto) 0.0 x10^3/uL (0.0-0.2) Sodium Level 140 mmol/L (136-145) Potassium Level 6.4 mmol/L (3.5-5.1) Chloride Level 104 mmol/L (98-107) Carbon Dioxide Level 10 mmol/L (21-32) Anion Gap 26 (6-14) Blood Urea Nitrogen 27 mg/dL (7-20) Creatinine 1.8 mg/dL (0.6-1.0) Estimated GFR (Cockcroft-Gault) 33.2 BUN/Creatinine Ratio 15 (6-20) Glucose Level 234 mg/dL (70-99) Calcium Level 8.6 mg/dL (8.5-10.1) Magnesium Level 2.3 mg/dL (1.8-2.4) Total Bilirubin 0.7 mg/dL (0.2-1.0) Aspartate Amino Transf (AST/SGOT) 134 U/L (15-37) Alanine Aminotransferase (ALT/SGPT) 72 U/L (14-59) Alkaline Phosphatase 258 U/L (46-116) Total Protein 7.2 g/dL (6.4-8.2) Albumin 1.5 g/dL (3.4-5.0) Albumin/Globulin Ratio 0.3 (1.0-1.7) Test 10/11/16 06:12 10/11/16 07:12 10/11/16 07:35 10/11/16 09:10 O2 Saturation 87 % (92-99) 89 % (92-99) 94 % (92-99) Arterial Blood pH 6.88 (7.35-7.45) 7.01 (7.35-7.45) 7.10 (7.35-7.45) Arterial Blood pCO2 at Patient Temp 33 mmHg (35-46) 27 mmHg (35-46) 30 mmHg (35-46) Arterial Blood pO2 at Patient Temp 85 mmHg (65-108) 81 mmHg (65-108) 93 mmHg (65-108) Arterial Blood HCO3 6 mmol/L (21-28) 7 mmol/L (21-28) 9 mmol/L (21-28) Arterial Blood Base Excess -26 mmol/L (-3-3) -23 mmol/L (-3-3) -19 mmol/L (-3-3) FiO2 50 50 Oxyhemoglobin 89.2 % Methemoglobin 0.0 % (0.0-1.9) Carbon Monoxide, Quantitative 0.1 % (0.0-1.9) Glucose (Fingerstick) 185 mg/dL (70-99) Test 10/11/16 12:24 Glucose (Fingerstick) 168 mg/dL (70-99) Microbiology 10/10/16 Blood Culture - Final, Complete Medications Current Medications Naloxone HCl (Narcan) 2 mg STK-MED ONCE .ROUTE ; Start 10/10/16 at 15:49; Stop at 15:50; Status DC Sodium Chloride 1,000 ml @ 1,000 mls/hr 1X ONCE IV Last administered on 15:56; Start 10/10/16 at 16:15; Stop 10/10/16 at 17:14; Status DC Naloxone HCl (Narcan) 0.4 mg 1X ONCE IV ; Start 10/10/16 at 16:15; Stop 10/10/16 at 16:16; Status DC Acetaminophen (Tylenol) 650 mg 1X ONCE PO Last administered on 10/10/16 16:47 ; Start 10/10/16 at 16:15; Stop 10/10/16 at 16:16; Status DC Ibuprofen (Motrin) 400 mg 1X ONCE PO Last administered on 10/10/16 16:47; Start 10/10/16 at 16:15; Stop 10/10/16 at 16:16; Status DC Naloxone HCl (Narcan) 2 mg 1X ONCE IV Last administered on 10/10/16 15:54; Start 10/10/16 at 16:30; Stop 10/10/16 at 16:32; Status DC Aspirin (Children'S Aspirin) 324 mg 1X ONCE PO Last administered on 10/10/16 16:56; Start 10/10/16 at 16:45; Stop 10/10/16 at 16:46; Status DC Lorazepam (Ativan) 1 mg 1X ONCE IV Last administered on 10/10/16 17:59; Start 10/10/16 at 18:00; Stop 10/10/16 at 18:01; Status DC Ringer's Solution 1,000 ml @ 999 mls/hr 1X ONCE IV Last administered on 18:02; Start 10/10/16 at 18:00; Stop 10/10/16 at 19:00; Status DC Ringer's Solution 1,000 ml @ 999 mls/hr 1X ONCE IV Last administered on 18:36; Start 10/10/16 at 18:00; Stop 10/10/16 at 19:00; Status DC Piperacillin Sod/ Tazobactam Sod 3.375 gm/Sodium Chloride 50 ml @ 100 mls/hr 1X ONCE IV Last administered on 10/10/16 18:43; Start 10/10/16 at 18:45; Stop 10/10/16 at 19:14; Status DC Ondansetron HCl (Zofran) 4 mg PRN Q8HRS PRN IV NAUSEA/VOMITING; Start 10/10/16 at 19:00; Stop 10/11/16 at 18:59 Acetaminophen (Tylenol) 650 mg PRN Q4HRS PRN PO FEVER Last administered on 02:07; Start 10/10/16 at 19:00; Stop 10/11/16 at 18:59 Norepinephrine Bitartrate 250 ml @ 1.875 mls/ hr 1X ONCE IV Last administered on 10/10/16 18:58; Start 10/10/16 at 19:00; Stop 10/11/16 at 09:11; Status DC Norepinephrine Bitartrate 250 ml @ 0 mls/hr 1X ONCE IV ; Start 10/10/16 at 19:00 ; Stop 10/10/16 at 19:01; Status Cancel Amino Acids/ Glycerin/ Electrolytes 1,000 ml @ 80 mls/hr [id number] IV ; Start 10/10/16 at 19:15; Stop 10/10/16 at 19:20; Status DC Famotidine (Pepcid) 20 mg QHS IVP ; Start 10/10/16 at 21:00; Stop 10/10/16 at 21: 00; Status DC Heparin Sodium (Porcine) (Heparin Sq) 5,000 unit Q8HRS SQ ; Start 10/10/16 at 22: 00; Stop 10/10/16 at 22:00; Status DC Piperacillin Sod/ Tazobactam Sod 3.375 gm/Sodium Chloride 50 ml @ 100 mls/hr Q6HRS IV ; Start 10/11/16 at 00:00; Stop 10/11/16 at 00:00; Status DC Piperacillin Sod/ Tazobactam Sod (Zosyn Per Pharmacy) 1 each PRN DAILY PRN MC SEE COMMENTS; Start 10/10/16 at 19:15; Stop 10/10/16 at 19:20; Status DC Vancomycin HCl 1.75 gm/Sodium Chloride 500 ml @ 250 mls/hr 1X ONCE IV ; Start 10/10/16 at 19:15; Stop 10/10/16 at 21:14; Status Cancel Vancomycin HCl (Vanco Per Pharmacy) 1 each PRN DAILY PRN MC SEE COMMENTS; Start 10/10/16 at 19:15; Stop 10/10/16 at 19:20; Status DC Info 1 each PRN DAILY PRN MC SEE COMMENTS Last administered on 10/11/16 09:30; Start 10/10/16 at 21:15 Amino Acids/ Glycerin/ Electrolytes 1,000 ml @ 80 mls/hr [id number] IV Last administered on 10/10/16t 21:47; Start 10/10/16 at 21:15; Stop 10/11/16 at 21:00 Insulin Aspart (NovoLOG) 0-9 UNITS TIDWMEALS SQ ; Start 10/11/16 at 08:00 Dextrose (Dextrose 50%-Water Syringe) 12.5 gm PRN Q15MIN PRN IV SEE COMMENTS; Start 10/10/16 at 21:15 Sodium Chloride 2,000 ml @ 500 mls/hr 1X ONCE IV Last administered on 21:47; Start 10/10/16 at 21:30; Stop 10/11/16 at 01:29; Status DC Vancomycin HCl (Vanco Per Pharmacy) 1 each PRN DAILY PRN MC SEE COMMENTS Last administered on 10/11/16 09:26; Start 10/11/16 at 00:15; Stop 10/11/16 at 12:56; Status DC Piperacillin Sod/ Tazobactam Sod (Zosyn Per Pharmacy) 1 each PRN DAILY PRN MC SEE COMMENTS; Start 10/11/16 at 00:15 Piperacillin Sod/ Tazobactam Sod 3.375 gm/Sodium Chloride 50 ml @ 100 mls/hr Q6HRS IV Last administered on 10/11/16 12:21; Start 10/11/16 at 00:30 Vancomycin HCl 1.75 gm/Sodium Chloride 500 ml @ 250 mls/hr 1X ONCE IV ; Start 10/11/16 at 01:00; Stop 10/11/16 at 02:59; Status Cancel Vancomycin HCl 1.75 gm/Sodium Chloride 500 ml @ 250 mls/hr 1X ONCE IV Last administered on 10/11/16 00:23; Start 10/10/16 at 21:00; Stop 10/11/16 at 00:13; Status DC Vancomycin HCl 1.5 gm/Sodium Chloride 500 ml @ 250 mls/hr Q24H IV ; Start at 22:00; Stop 10/11/16 at 22:00; Status DC Vancomycin HCl 1 each 1X ONCE MC ; Start 10/12/16 at 21:30; Stop 10/12/16 at 21: 31; Status Cancel Morphine Sulfate 2 mg PRN Q2HR PRN IV SEVERE PAIN Last administered on 09:54; Start 10/11/16 at 04:30 Furosemide (Lasix) 40 mg 1X ONCE IVP Last administered on 10/11/16 04:46; Start 10/11/16 at 05:00; Stop 10/11/16 at 05:01; Status DC Lorazepam (Ativan) 0.5 mg PRN Q4HRS PRN IV ANXIETY / AGITATION; Start 10/11/16 at 04:30 Albuterol/ Ipratropium (Duoneb) 3 ml RTQID NEB Last administered on 10/11/16 11 :48; Start 10/11/16 at 08:00 Albuterol/ Ipratropium (Duoneb) 3 ml 1X ONCE NEB Last administered on 05:32; Start 10/11/16 at 05:45; Stop 10/11/16 at 05:46; Status DC Naloxone HCl (Narcan) 0.4 mg STK-MED ONCE .ROUTE ; Start 10/11/16 at 06:08; Stop 10/11/16 at 06:09; Status DC Sodium Bicarbonate 50 meq STK-MED ONCE .ROUTE ; Start 10/11/16 at 06:43; Stop 10/11/16 at 06:44; Status DC Vecuronium [place] (Norcuron Bolus) 10 mg STK-MED ONCE IV ; Start 10/11/16 at 07: 02; Stop 10/11/16 at 07:03; Status DC Phenylephrine HCl 1 mg STK-MED ONCE IV ; Start 10/11/16 at 07:04; Stop 10/11/16 at 07:05; Status DC Sodium Bicarbonate 75 meq/Dextrose 1,075 ml @ 75 mls/hr [id number] IV ; Start 10/11 at 08:00; Status Cancel Sodium Bicarbonate 100 meq 1X ONCE IV Last administered on 10/11/16 07:34; Start 10/11/16 at 07:30; Stop 10/11/16 at 07:31; Status DC Sodium Bicarbonate 50 meq STK-MED ONCE .ROUTE ; Start 10/11/16 at 07:28; Stop 10/11/16 at 07:29; Status DC Sodium Bicarbonate 150 meq/Dextrose 1,150 ml @ 75 mls/hr [id number] IV Last administered on 10/11/16 08:08; Start 10/11/16 at 08:00 Vasopressin 40 unit/Dextrose 102 ml @ 6 mls/hr CONT PRN IV SEE I/O RECORD Last administered on 10/11/16 08:53; Start 10/11/16 at 08:30 Epinephrine HCl 4 mg/Sodium Chloride 254 ml @ 0 mls/hr CONT PRN IV SEE I/O RECORD; Start 10/11/16 at 08:30 Norepinephrine Bitartrate 250 ml @ 0 mls/hr CONT PRN IV SEE I/O RECORD Last administered on 10/11/16t 09:12; Start 10/11/16 at 09:15 Sodium Chloride 20 meq/Sodium Acetate 70 meq/ Magnesium Sulfate 10 meq/Calcium Gluconate 5 meq/ Multivitamins 10 ml/Chromium/ Copper/Manganese/ Seleni/Zn 1 ml / Total Parenteral Nutrition/Amino Acids/Dextrose/ Fat Emulsion Intravenous 1, 200 ml @ 50 mls/hr TPN CONT IV ; Start 10/11/16 at 22:00; Stop 10/12/16 at 21:59 Active Scripts Active Senna S Tablet (Sennosides/Docusate Sodium) 1 Each Tablet 1 Each PO DAILY Reported Tubersol (Tuberculin,Purif.prot.deriv.) 5 Tub Unit/0.1 Ml Vial 5 Tub ID UD Tpn Electrolytes Ii Iv Soln (Sodium/K+/Mag/Ca/Chlor/Acetate) 20 Ml Vial Ml IV CONT PRN Polyvinyl Alcohol 15 Ml Drops 15 Ml OP PRN Novolog Flexpen (Insulin Aspart) 100 Unit/1 Ml Insuln.pen Unknown Dose SQ TIDACHC Ms Contin (Morphine Sulfate) 15 Mg Tablet.er 15 Mg PO PRN DAILY PRN Megace Es (Megestrol Acetate) 625 Mg/5 Ml Oral.susp 600 Mg PO DAILY Lipitor (Atorvastatin Calcium) 20 Mg Tablet 20 Mg PO HS Hydrocodone-Apap 5-325 (Hydrocodone Bit/Acetaminophen) 1 Each Tablet 1 Tab PO PRN Q4HRS PRN Famotidine 20 Mg Tablet 20 Mg PO BID Celexa (Citalopram Hydrobromide) 40 Mg Tablet 1 Tab PO DAILY Bisacodyl 10 Mg Supp.rect 10 Mg RC PRN DAILY PRN Biotene Moisturizing Mouth (Saliva Stimulant Agents Comb.3) 44.3 Ml [place] 44.3 Ml MM PRN Acetaminophen 650 Mg/20.3 Ml Solution 650 Mg PO PRN Q6HRS PRN Basaglar Kwikpen U-100 (Insulin Glargine,Hum.rec.anlog) 100 Unit/1 Ml Insuln.pen 10 Unit SQ HS Lyrica (Pregabalin) 150 Mg Capsule 150 Mg PO BID 30 Days Buspirone Hcl 10 Mg Tablet 10 Mg PO BID Aspir 81 (Aspirin) 81 Mg Tablet.dr 1 Tab PO DAILY Vitals/I & O Vital Sign - Last 24 Hours 10/10/16 10/10/16 10/10/16 10/10/16 15:47 15:56 16:30 17:25 Temp 100.2 100.2 Pulse 105 112 104 100 Resp 14 16 20 20 B/P (MAP) 79/45 (56) 118/65 (82) 112/54 (73) 109/54 (72) Pulse Ox 95 92 92 91 O2 Delivery NonRebreather Mask Nasal Cannula Nasal Cannula Nasal Cannula O2 Flow Rate 15.0 3.0 3.0 3.0 10/10/16 10/10/16 10/10/16 10/10/16 18:06 18:24 18:32 18:39 Temp 98.0 98.0 Pulse 90 90 90 89 Resp 20 16 16 16 B/P (MAP) 99/52 (68) 71/49 (56) 84/52 (63) 86/50 (62) Pulse Ox 93 92 92 93 O2 Delivery Nasal Cannula Nasal Cannula Nasal Cannula Nasal Cannula O2 Flow Rate 3.0 2.0 3.0 3.0 10/10/16 10/10/16 10/10/16 10/10/16 18:45 18:50 18:58 19:05 Pulse 88 86 84 84 Resp 16 16 16 16 B/P (MAP) 83/54 (64) 76/46 (56) 78/49 (59) 87/50 (62) Pulse Ox 94 94 94 94 O2 Delivery Nasal Cannula Nasal Cannula Nasal Cannula Nasal Cannula O2 Flow Rate 3.0 3.0 3.0 3.0 10/10/16 10/10/16 10/10/16 10/10/16 19:15 19:25 19:35 20:00 Pulse 84 86 88 Resp 16 16 16 B/P (MAP) 110/54 (72) 104/57 (73) 99/57 (71) Pulse Ox 94 94 94 O2 Delivery Nasal Cannula Nasal Cannula Nasal Cannula Nasal Cannula O2 Flow Rate 3.0 3.0 3.0 3.0 10/10/16 10/10/16 10/10/16 10/10/16 20:00 20:15 20:30 20:45 Temp 96.9 97.1 96.9 97.1 Pulse 88 88 90 88 Resp 22 20 22 22 B/P (MAP) 106/51 (69) 106/55 (72) 105/57 (73) 95/53 (67) Pulse Ox 96 96 96 95 O2 Delivery Nasal Cannula Nasal Cannula Nasal Cannula Nasal Cannula O2 Flow Rate 3.0 3.0 2.0 2.0 10/10/16 10/10/16 10/10/16 10/10/16 21:00 21:30 22:00 23:00 Temp 97.9 97.9 Pulse 88 88 86 88 Resp 20 20 20 18 B/P (MAP) 98/55 (69) 102/54 (70) 93/52 (66) 103/57 (72) Pulse Ox 97 97 98 96 O2 Delivery Nasal Cannula Nasal Cannula Nasal Cannula Nasal Cannula O2 Flow Rate 2.0 2.0 2.0 2.0 10/10/16 10/11/16 10/11/16 10/11/16 23:59 00:00 01:00 02:00 Pulse 88 87 88 Resp 20 20 20 B/P (MAP) 106/51 (69) 113/69 (84) 100/69 (79) Pulse Ox 97 97 95 O2 Delivery Nasal Cannula Nasal Cannula Nasal Cannula Nasal Cannula O2 Flow Rate 2.0 2.0 2.0 2.0 10/11/16 10/11/16 10/11/16 10/11/16 03:00 04:00 04:00 04:46 Temp 98.0 98.0 Pulse 78 88 Resp 22 34 34 B/P (MAP) 91/49 (63) 111/55 (73) Pulse Ox 95 90 92 O2 Delivery Nasal Cannula Nasal Cannula Nasal Cannula Nasal Cannula O2 Flow Rate 2.0 2.0 2.0 2.0 10/11/16 10/11/16 10/11/16 10/11/16 05:00 05:16 05:32 05:45 Pulse 72 Resp 20 20 B/P (MAP) 107/59 (75) Pulse Ox 93 92 91 O2 Delivery Nasal Cannula Nasal Cannula Venturi Mask O2 Flow Rate 3.0 4.0 15.0 10/11/16 10/11/16 10/11/16 10/11/16 06:00 06:30 07:00 07:10 Temp 97.7 97.7 Pulse 72 93 Resp 20 20 B/P (MAP) 107/59 (75) 117/60 (79) Pulse Ox 91 92 94 95 O2 Delivery Venturi Mask BiPAP/CPAP BiPAP/CPAP BiPAP/CPAP O2 Flow Rate 3.0 10/11/16 10/11/16 10/11/16 10/11/16 07:53 07:58 09:10 09:13 Pulse 90 93 Resp 22 20 B/P (MAP) 117/64 (81) 110/61 (77) Pulse Ox 98 96 97 O2 Delivery Bi-pap BiPAP/CPAP BiPAP/CPAP BiPAP/CPAP 10/11/16 10/11/16 10/11/16 10/11/16 09:54 10:09 10:16 11:17 Pulse 91 88 Resp 22 20 B/P (MAP) 115/61 (79) 104/41 (62) Pulse Ox 97 98 98 97 O2 Delivery BiPAP/CPAP BiPAP/CPAP BiPAP/CPAP BiPAP/CPAP O2 Flow Rate 3.0 3.0 10/11/16 10/11/16 10/11/16 11:39 11:48 12:06 Pulse 87 Resp 20 B/P (MAP) 144/59 (87) Pulse Ox 96 98 O2 Delivery Bi-pap BiPAP/CPAP BiPAP/CPAP O2 Flow Rate 3.0 Intake and Output 10/11/16 10/11/16 10/12/16 15:00 23:00 07:00 Output Total 75 ml Balance -75 ml JACK JONES MD Oct 11, 2016 13:33
--- NOTE | 2016-10-11 13:52 | PDOC ---
PROGRESS NOTES Chief Complaint Chief Complaint CC: AMS CAD w/CABG DM HTN Gastrotomy w/PEG Uterine CA SBO History of Present Illness History of Present Illness Pt was placed on bipap overnight. Needs norepinephrine and epinephrine to maintain BP. Being fed with TPN. Pt's family was with her in the ICU and have agreed to change code status to DNR. Pt was minimally able to acknowledge my presence. Prognosis is poor. Vitals Vitals Vital Signs Date Time Temp Pulse Resp B/P (MAP) Pulse Ox O2 Delivery O2 Flow Rate FiO2 10/11/16 12:06 87 20 144/59 (87) 98 BiPAP/CPAP 10/11/16 11:39 3.0 10/11/16 07:00 97.7 97.7 Physical Exam General: moderate distress Heart: Other (tachy) Lungs: Clear, Other Abdomen: Other (distended but soft, no clear tenderness, healing midline incision, Gtube in LUQ) Extremities: Other (ankle edema present) Labs LABS Laboratory Tests Test 10/10/16 15:50 10/10/16 15:52 10/10/16 16:06 10/10/16 16:12 Glucose (Fingerstick) 329 mg/dL (70-99) O2 Saturation 88 % (92-99) Arterial Blood pH 7.29 (7.35-7.45) Arterial Blood pCO2 at Patient Temp 35 mmHg (35-46) Arterial Blood pO2 at Patient Temp 65 mmHg (65-108) Arterial Blood HCO3 16 mmol/L (21-28) Arterial Blood Base Excess -9 mmol/L (-3-3) FiO2 32 White Blood Count 18.5 x10^3/uL (4.0-11.0) Red Blood Count 3.00 x10^6/uL (3.50-5.40) Hemoglobin 9.1 g/dL (12.0-15.5) Hematocrit 28.8 % (36.0-47.0) Mean Corpuscular Volume 96 fL (79-100) Mean Corpuscular Hemoglobin 30 pg (25-35) Mean Corpuscular Hemoglobin Concent 32 g/dL (31-37) Red Cell Distribution Width 16.3 % (11.5-14.5) Platelet Count 295 x10^3/uL (140-400) Neutrophils (%) (Auto) 89 % (31-73) Lymphocytes (%) (Auto) 8 % (24-48) Monocytes (%) (Auto) 3 % (0-9) Eosinophils (%) (Auto) 0 % (0-3) Basophils (%) (Auto) 0 % (0-3) Neutrophils # (Auto) 16.4 x10^3uL (1.8-7.7) Lymphocytes # (Auto) 1.4 x10^3/uL (1.0-4.8) Monocytes # (Auto) 0.5 x10^3/uL (0.0-1.1) Eosinophils # (Auto) 0.0 x10^3/uL (0.0-0.7) Basophils # (Auto) 0.1 x10^3/uL (0.0-0.2) Segmented Neutrophils % 61 % (35-66) Band Neutrophils % 27 % (0-9) Lymphocytes % 8 % (24-48) Monocytes % 4 % (0-10) Nucleated Red Blood Cells 2 Toxic Granulation Slight Toxic Vacuolation Slight Platelet Estimate Adequate (ADEQUATE) Large Platelets Few Polychromasia Slight Macrocytosis Slight Sodium Level 136 mmol/L (136-145) Potassium Level 4.7 mmol/L (3.5-5.1) Chloride Level 99 mmol/L (98-107) Carbon Dioxide Level 20 mmol/L (21-32) Anion Gap 17 (6-14) Blood Urea Nitrogen 21 mg/dL (7-20) Creatinine 1.8 mg/dL (0.6-1.0) Estimated GFR (Cockcroft-Gault) 33.2 BUN/Creatinine Ratio 12 (6-20) Glucose Level 367 mg/dL (70-99) Calcium Level 9.1 mg/dL (8.5-10.1) Magnesium Level 2.1 mg/dL (1.8-2.4) Total Bilirubin 0.6 mg/dL (0.2-1.0) Aspartate Amino Transf (AST/SGOT) 49 U/L (15-37) Alanine Aminotransferase (ALT/SGPT) 53 U/L (14-59) Alkaline Phosphatase 482 U/L (46-116) Troponin I Quantitative 0.263 ng/mL (0.000-0.055) Total Protein 8.0 g/dL (6.4-8.2) Albumin 1.7 g/dL (3.4-5.0) Albumin/Globulin Ratio 0.3 (1.0-1.7) Urine Collection Type Unknown Urine Color Yellow Urine Clarity Clear Urine pH 5.5 Urine Specific [place] 1.025 Urine Protein 100 mg/dL (NEG-TRACE) Urine Glucose (UA) >=1000 mg/dL (NEG) Urine Ketones (Stick) Negative mg/dL (NEG) Urine Blood Negative (NEG) Urine Nitrite Negative (NEG) Urine Bilirubin Negative (NEG) Urine Urobilinogen Dipstick 0.2 mg/dL (0.2 mg/dL) Urine Leukocyte Esterase Negative (NEG) Urine RBC 0 /HPF (0-2) Urine WBC 1-4 /HPF (0-4) Urine Squamous Epithelial Cells Occ /LPF Urine Amorphous Sediment Present /HPF Urine Bacteria Few /HPF (0-FEW) Urine Mucus Slight /LPF Test 10/10/16 16:29 10/10/16 19:55 10/11/16 03:51 10/11/16 06:00 Prothrombin Time 17.5 SEC (11.7-14.0) Prothromb Time International Ratio 1.5 (0.8-1.1) Lactic Acid Level 8.3 mmol/L (0.4-2.0) 7.0 mmol/L (0.4-2.0) 16.6 mmol/L (0.4-2.0) Ammonia 55 mcmol/L (11-34) Glucose (Fingerstick) 288 mg/dL (70-99) White Blood Count 17.6 x10^3/uL (4.0-11.0) Red Blood Count 2.87 x10^6/uL (3.50-5.40) Hemoglobin 8.9 g/dL (12.0-15.5) Hematocrit 29.0 % (36.0-47.0) Mean Corpuscular Volume 101 fL (79-100) Mean Corpuscular Hemoglobin 31 pg (25-35) Mean Corpuscular Hemoglobin Concent 31 g/dL (31-37) Red Cell Distribution Width 17.1 % (11.5-14.5) Platelet Count 292 x10^3/uL (140-400) Neutrophils (%) (Auto) 79 % (31-73) Lymphocytes (%) (Auto) 11 % (24-48) Monocytes (%) (Auto) 6 % (0-9) Eosinophils (%) (Auto) 5 % (0-3) Basophils (%) (Auto) 0 % (0-3) Neutrophils # (Auto) 13.8 x10^3uL (1.8-7.7) Lymphocytes # (Auto) 1.9 x10^3/uL (1.0-4.8) Monocytes # (Auto) 1.0 x10^3/uL (0.0-1.1) Eosinophils # (Auto) 0.8 x10^3/uL (0.0-0.7) Basophils # (Auto) 0.0 x10^3/uL (0.0-0.2) Sodium Level 140 mmol/L (136-145) Potassium Level 6.4 mmol/L (3.5-5.1) Chloride Level 104 mmol/L (98-107) Carbon Dioxide Level 10 mmol/L (21-32) Anion Gap 26 (6-14) Blood Urea Nitrogen 27 mg/dL (7-20) Creatinine 1.8 mg/dL (0.6-1.0) Estimated GFR (Cockcroft-Gault) 33.2 BUN/Creatinine Ratio 15 (6-20) Glucose Level 234 mg/dL (70-99) Calcium Level 8.6 mg/dL (8.5-10.1) Magnesium Level 2.3 mg/dL (1.8-2.4) Total Bilirubin 0.7 mg/dL (0.2-1.0) Aspartate Amino Transf (AST/SGOT) 134 U/L (15-37) Alanine Aminotransferase (ALT/SGPT) 72 U/L (14-59) Alkaline Phosphatase 258 U/L (46-116) Total Protein 7.2 g/dL (6.4-8.2) Albumin 1.5 g/dL (3.4-5.0) Albumin/Globulin Ratio 0.3 (1.0-1.7) Test 10/11/16 06:12 10/11/16 07:12 10/11/16 07:35 10/11/16 09:10 O2 Saturation 87 % (92-99) 89 % (92-99) 94 % (92-99) Arterial Blood pH 6.88 (7.35-7.45) 7.01 (7.35-7.45) 7.10 (7.35-7.45) Arterial Blood pCO2 at Patient Temp 33 mmHg (35-46) 27 mmHg (35-46) 30 mmHg (35-46) Arterial Blood pO2 at Patient Temp 85 mmHg (65-108) 81 mmHg (65-108) 93 mmHg (65-108) Arterial Blood HCO3 6 mmol/L (21-28) 7 mmol/L (21-28) 9 mmol/L (21-28) Arterial Blood Base Excess -26 mmol/L (-3-3) -23 mmol/L (-3-3) -19 mmol/L (-3-3) FiO2 50 50 Oxyhemoglobin 89.2 % Methemoglobin 0.0 % (0.0-1.9) Carbon Monoxide, Quantitative 0.1 % (0.0-1.9) Glucose (Fingerstick) 185 mg/dL (70-99) Test 10/11/16 12:24 Glucose (Fingerstick) 168 mg/dL (70-99) Review of Systems Review of Systems Pt was too confused for a full ROS Assessment and Plan Assessmemt and Plan Problems Medical Problems: (1) Cancer Status: Acute (2) Fever Status: Acute (3) Hypotension Status: Acute (4) Lactic acid acidosis Status: Acute (5) Opiate overdose Status: Acute (6) Pleural effusion Status: Acute (7) PP (pneumoperitoneum) Status: Acute Sepsis: Blood Cx showed gram positive cocci, possibly contaminate, but will tx under clinical picture, continue IV abx and vasopressors (titrate down if BP increases) CAD w/CABG: Continue to follow DM: Continue insulin HTN: Hold HTN meds due to clinical decline 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 Samano has been consulted, appreciate the assistance, pallative has been consulted, appreciate the assistance SBO/peritonitis: Dr. Pickett and Dr. Nuñez have been consulted, appreciate the assistance Nutrition: Continue TPN Total time 32 minutes Problems: Comment Review of Relevant I have reviewed the following items anita (where applicable) has been applied. Labs Laboratory Tests Test 10/10/16 15:50 10/10/16 15:52 10/10/16 16:06 10/10/16 16:12 Glucose (Fingerstick) 329 mg/dL (70-99) O2 Saturation 88 % (92-99) Arterial Blood pH 7.29 (7.35-7.45) Arterial Blood pCO2 at Patient Temp 35 mmHg (35-46) Arterial Blood pO2 at Patient Temp 65 mmHg (65-108) Arterial Blood HCO3 16 mmol/L (21-28) Arterial Blood Base Excess -9 mmol/L (-3-3) FiO2 32 White Blood Count 18.5 x10^3/uL (4.0-11.0) Red Blood Count 3.00 x10^6/uL (3.50-5.40) Hemoglobin 9.1 g/dL (12.0-15.5) Hematocrit 28.8 % (36.0-47.0) Mean Corpuscular Volume 96 fL (79-100) Mean Corpuscular Hemoglobin 30 pg (25-35) Mean Corpuscular Hemoglobin Concent 32 g/dL (31-37) Red Cell Distribution Width 16.3 % (11.5-14.5) Platelet Count 295 x10^3/uL (140-400) Neutrophils (%) (Auto) 89 % (31-73) Lymphocytes (%) (Auto) 8 % (24-48) Monocytes (%) (Auto) 3 % (0-9) Eosinophils (%) (Auto) 0 % (0-3) Basophils (%) (Auto) 0 % (0-3) Neutrophils # (Auto) 16.4 x10^3uL (1.8-7.7) Lymphocytes # (Auto) 1.4 x10^3/uL (1.0-4.8) Monocytes # (Auto) 0.5 x10^3/uL (0.0-1.1) Eosinophils # (Auto) 0.0 x10^3/uL (0.0-0.7) Basophils # (Auto) 0.1 x10^3/uL (0.0-0.2) Segmented Neutrophils % 61 % (35-66) Band Neutrophils % 27 % (0-9) Lymphocytes % 8 % (24-48) Monocytes % 4 % (0-10) Nucleated Red Blood Cells 2 Toxic Granulation Slight Toxic Vacuolation Slight Platelet Estimate Adequate (ADEQUATE) Large Platelets Few Polychromasia Slight Macrocytosis Slight Sodium Level 136 mmol/L (136-145) Potassium Level 4.7 mmol/L (3.5-5.1) Chloride Level 99 mmol/L (98-107) Carbon Dioxide Level 20 mmol/L (21-32) Anion Gap 17 (6-14) Blood Urea Nitrogen 21 mg/dL (7-20) Creatinine 1.8 mg/dL (0.6-1.0) Estimated GFR (Cockcroft-Gault) 33.2 BUN/Creatinine Ratio 12 (6-20) Glucose Level 367 mg/dL (70-99) Calcium Level 9.1 mg/dL (8.5-10.1) Magnesium Level 2.1 mg/dL (1.8-2.4) Total Bilirubin 0.6 mg/dL (0.2-1.0) Aspartate Amino Transf (AST/SGOT) 49 U/L (15-37) Alanine Aminotransferase (ALT/SGPT) 53 U/L (14-59) Alkaline Phosphatase 482 U/L (46-116) Troponin I Quantitative 0.263 ng/mL (0.000-0.055) Total Protein 8.0 g/dL (6.4-8.2) Albumin 1.7 g/dL (3.4-5.0) Albumin/Globulin Ratio 0.3 (1.0-1.7) Urine Collection Type Unknown Urine Color Yellow Urine Clarity Clear Urine pH 5.5 Urine Specific [place] 1.025 Urine Protein 100 mg/dL (NEG-TRACE) Urine Glucose (UA) >=1000 mg/dL (NEG) Urine Ketones (Stick) Negative mg/dL (NEG) Urine Blood Negative (NEG) Urine Nitrite Negative (NEG) Urine Bilirubin Negative (NEG) Urine Urobilinogen Dipstick 0.2 mg/dL (0.2 mg/dL) Urine Leukocyte Esterase Negative (NEG) Urine RBC 0 /HPF (0-2) Urine WBC 1-4 /HPF (0-4) Urine Squamous Epithelial Cells Occ /LPF Urine Amorphous Sediment Present /HPF Urine Bacteria Few /HPF (0-FEW) Urine Mucus Slight /LPF Test 10/10/16 16:29 10/10/16 19:55 10/11/16 03:51 10/11/16 06:00 Prothrombin Time 17.5 SEC (11.7-14.0) Prothromb Time International Ratio 1.5 (0.8-1.1) Lactic Acid Level 8.3 mmol/L (0.4-2.0) 7.0 mmol/L (0.4-2.0) 16.6 mmol/L (0.4-2.0) Ammonia 55 mcmol/L (11-34) Glucose (Fingerstick) 288 mg/dL (70-99) White Blood Count 17.6 x10^3/uL (4.0-11.0) Red Blood Count 2.87 x10^6/uL (3.50-5.40) Hemoglobin 8.9 g/dL (12.0-15.5) Hematocrit 29.0 % (36.0-47.0) Mean Corpuscular Volume 101 fL (79-100) Mean Corpuscular Hemoglobin 31 pg (25-35) Mean Corpuscular Hemoglobin Concent 31 g/dL (31-37) Red Cell Distribution Width 17.1 % (11.5-14.5) Platelet Count 292 x10^3/uL (140-400) Neutrophils (%) (Auto) 79 % (31-73) Lymphocytes (%) (Auto) 11 % (24-48) Monocytes (%) (Auto) 6 % (0-9) Eosinophils (%) (Auto) 5 % (0-3) Basophils (%) (Auto) 0 % (0-3) Neutrophils # (Auto) 13.8 x10^3uL (1.8-7.7) Lymphocytes # (Auto) 1.9 x10^3/uL (1.0-4.8) Monocytes # (Auto) 1.0 x10^3/uL (0.0-1.1) Eosinophils # (Auto) 0.8 x10^3/uL (0.0-0.7) Basophils # (Auto) 0.0 x10^3/uL (0.0-0.2) Sodium Level 140 mmol/L (136-145) Potassium Level 6.4 mmol/L (3.5-5.1) Chloride Level 104 mmol/L (98-107) Carbon Dioxide Level 10 mmol/L (21-32) Anion Gap 26 (6-14) Blood Urea Nitrogen 27 mg/dL (7-20) Creatinine 1.8 mg/dL (0.6-1.0) Estimated GFR (Cockcroft-Gault) 33.2 BUN/Creatinine Ratio 15 (6-20) Glucose Level 234 mg/dL (70-99) Calcium Level 8.6 mg/dL (8.5-10.1) Magnesium Level 2.3 mg/dL (1.8-2.4) Total Bilirubin 0.7 mg/dL (0.2-1.0) Aspartate Amino Transf (AST/SGOT) 134 U/L (15-37) Alanine Aminotransferase (ALT/SGPT) 72 U/L (14-59) Alkaline Phosphatase 258 U/L (46-116) Total Protein 7.2 g/dL (6.4-8.2) Albumin 1.5 g/dL (3.4-5.0) Albumin/Globulin Ratio 0.3 (1.0-1.7) Test 10/11/16 06:12 10/11/16 07:12 10/11/16 07:35 10/11/16 09:10 O2 Saturation 87 % (92-99) 89 % (92-99) 94 % (92-99) Arterial Blood pH 6.88 (7.35-7.45) 7.01 (7.35-7.45) 7.10 (7.35-7.45) Arterial Blood pCO2 at Patient Temp 33 mmHg (35-46) 27 mmHg (35-46) 30 mmHg (35-46) Arterial Blood pO2 at Patient Temp 85 mmHg (65-108) 81 mmHg (65-108) 93 mmHg (65-108) Arterial Blood HCO3 6 mmol/L (21-28) 7 mmol/L (21-28) 9 mmol/L (21-28) Arterial Blood Base Excess -26 mmol/L (-3-3) -23 mmol/L (-3-3) -19 mmol/L (-3-3) FiO2 50 50 Oxyhemoglobin 89.2 % Methemoglobin 0.0 % (0.0-1.9) Carbon Monoxide, Quantitative 0.1 % (0.0-1.9) Glucose (Fingerstick) 185 mg/dL (70-99) Test 10/11/16 12:24 Glucose (Fingerstick) 168 mg/dL (70-99) Laboratory Tests Test 10/10/16 15:50 10/10/16 15:52 10/10/16 16:06 10/10/16 16:12 Glucose (Fingerstick) 329 mg/dL (70-99) O2 Saturation 88 % (92-99) Arterial Blood pH 7.29 (7.35-7.45) Arterial Blood pCO2 at Patient Temp 35 mmHg (35-46) Arterial Blood pO2 at Patient Temp 65 mmHg (65-108) Arterial Blood HCO3 16 mmol/L (21-28) Arterial Blood Base Excess -9 mmol/L (-3-3) FiO2 32 White Blood Count 18.5 x10^3/uL (4.0-11.0) Red Blood Count 3.00 x10^6/uL (3.50-5.40) Hemoglobin 9.1 g/dL (12.0-15.5) Hematocrit 28.8 % (36.0-47.0) Mean Corpuscular Volume 96 fL (79-100) Mean Corpuscular Hemoglobin 30 pg (25-35) Mean Corpuscular Hemoglobin Concent 32 g/dL (31-37) Red Cell Distribution Width 16.3 % (11.5-14.5) Platelet Count 295 x10^3/uL (140-400) Neutrophils (%) (Auto) 89 % (31-73) Lymphocytes (%) (Auto) 8 % (24-48) Monocytes (%) (Auto) 3 % (0-9) Eosinophils (%) (Auto) 0 % (0-3) Basophils (%) (Auto) 0 % (0-3) Neutrophils # (Auto) 16.4 x10^3uL (1.8-7.7) Lymphocytes # (Auto) 1.4 x10^3/uL (1.0-4.8) Monocytes # (Auto) 0.5 x10^3/uL (0.0-1.1) Eosinophils # (Auto) 0.0 x10^3/uL (0.0-0.7) Basophils # (Auto) 0.1 x10^3/uL (0.0-0.2) Segmented Neutrophils % 61 % (35-66) Band Neutrophils % 27 % (0-9) Lymphocytes % 8 % (24-48) Monocytes % 4 % (0-10) Nucleated Red Blood Cells 2 Toxic Granulation Slight Toxic Vacuolation Slight Platelet Estimate Adequate (ADEQUATE) Large Platelets Few Polychromasia Slight Macrocytosis Slight Sodium Level 136 mmol/L (136-145) Potassium Level 4.7 mmol/L (3.5-5.1) Chloride Level 99 mmol/L (98-107) Carbon Dioxide Level 20 mmol/L (21-32) Anion Gap 17 (6-14) Blood Urea Nitrogen 21 mg/dL (7-20) Creatinine 1.8 mg/dL (0.6-1.0) Estimated GFR (Cockcroft-Gault) 33.2 BUN/Creatinine Ratio 12 (6-20) Glucose Level 367 mg/dL (70-99) Calcium Level 9.1 mg/dL (8.5-10.1) Magnesium Level 2.1 mg/dL (1.8-2.4) Total Bilirubin 0.6 mg/dL (0.2-1.0) Aspartate Amino Transf (AST/SGOT) 49 U/L (15-37) Alanine Aminotransferase (ALT/SGPT) 53 U/L (14-59) Alkaline Phosphatase 482 U/L (46-116) Troponin I Quantitative 0.263 ng/mL (0.000-0.055) Total Protein 8.0 g/dL (6.4-8.2) Albumin 1.7 g/dL (3.4-5.0) Albumin/Globulin Ratio 0.3 (1.0-1.7) Urine Collection Type Unknown Urine Color Yellow Urine Clarity Clear Urine pH 5.5 Urine Specific [place] 1.025 Urine Protein 100 mg/dL (NEG-TRACE) Urine Glucose (UA) >=1000 mg/dL (NEG) Urine Ketones (Stick) Negative mg/dL (NEG) Urine Blood Negative (NEG) Urine Nitrite Negative (NEG) Urine Bilirubin Negative (NEG) Urine Urobilinogen Dipstick 0.2 mg/dL (0.2 mg/dL) Urine Leukocyte Esterase Negative (NEG) Urine RBC 0 /HPF (0-2) Urine WBC 1-4 /HPF (0-4) Urine Squamous Epithelial Cells Occ /LPF Urine Amorphous Sediment Present /HPF Urine Bacteria Few /HPF (0-FEW) Urine Mucus Slight /LPF Test 10/10/16 16:29 10/10/16 19:55 10/11/16 03:51 10/11/16 06:00 Prothrombin Time 17.5 SEC (11.7-14.0) Prothromb Time International Ratio 1.5 (0.8-1.1) Lactic Acid Level 8.3 mmol/L (0.4-2.0) 7.0 mmol/L (0.4-2.0) 16.6 mmol/L (0.4-2.0) Ammonia 55 mcmol/L (11-34) Glucose (Fingerstick) 288 mg/dL (70-99) White Blood Count 17.6 x10^3/uL (4.0-11.0) Red Blood Count 2.87 x10^6/uL (3.50-5.40) Hemoglobin 8.9 g/dL (12.0-15.5) Hematocrit 29.0 % (36.0-47.0) Mean Corpuscular Volume 101 fL (79-100) Mean Corpuscular Hemoglobin 31 pg (25-35) Mean Corpuscular Hemoglobin Concent 31 g/dL (31-37) Red Cell Distribution Width 17.1 % (11.5-14.5) Platelet Count 292 x10^3/uL (140-400) Neutrophils (%) (Auto) 79 % (31-73) Lymphocytes (%) (Auto) 11 % (24-48) Monocytes (%) (Auto) 6 % (0-9) Eosinophils (%) (Auto) 5 % (0-3) Basophils (%) (Auto) 0 % (0-3) Neutrophils # (Auto) 13.8 x10^3uL (1.8-7.7) Lymphocytes # (Auto) 1.9 x10^3/uL (1.0-4.8) Monocytes # (Auto) 1.0 x10^3/uL (0.0-1.1) Eosinophils # (Auto) 0.8 x10^3/uL (0.0-0.7) Basophils # (Auto) 0.0 x10^3/uL (0.0-0.2) Sodium Level 140 mmol/L (136-145) Potassium Level 6.4 mmol/L (3.5-5.1) Chloride Level 104 mmol/L (98-107) Carbon Dioxide Level 10 mmol/L (21-32) Anion Gap 26 (6-14) Blood Urea Nitrogen 27 mg/dL (7-20) Creatinine 1.8 mg/dL (0.6-1.0) Estimated GFR (Cockcroft-Gault) 33.2 BUN/Creatinine Ratio 15 (6-20) Glucose Level 234 mg/dL (70-99) Calcium Level 8.6 mg/dL (8.5-10.1) Magnesium Level 2.3 mg/dL (1.8-2.4) Total Bilirubin 0.7 mg/dL (0.2-1.0) Aspartate Amino Transf (AST/SGOT) 134 U/L (15-37) Alanine Aminotransferase (ALT/SGPT) 72 U/L (14-59) Alkaline Phosphatase 258 U/L (46-116) Total Protein 7.2 g/dL (6.4-8.2) Albumin 1.5 g/dL (3.4-5.0) Albumin/Globulin Ratio 0.3 (1.0-1.7) Test 10/11/16 06:12 10/11/16 07:12 10/11/16 07:35 10/11/16 09:10 O2 Saturation 87 % (92-99) 89 % (92-99) 94 % (92-99) Arterial Blood pH 6.88 (7.35-7.45) 7.01 (7.35-7.45) 7.10 (7.35-7.45) Arterial Blood pCO2 at Patient Temp 33 mmHg (35-46) 27 mmHg (35-46) 30 mmHg (35-46) Arterial Blood pO2 at Patient Temp 85 mmHg (65-108) 81 mmHg (65-108) 93 mmHg (65-108) Arterial Blood HCO3 6 mmol/L (21-28) 7 mmol/L (21-28) 9 mmol/L (21-28) Arterial Blood Base Excess -26 mmol/L (-3-3) -23 mmol/L (-3-3) -19 mmol/L (-3-3) FiO2 50 50 Oxyhemoglobin 89.2 % Methemoglobin 0.0 % (0.0-1.9) Carbon Monoxide, Quantitative 0.1 % (0.0-1.9) Glucose (Fingerstick) 185 mg/dL (70-99) Test 10/11/16 12:24 Glucose (Fingerstick) 168 mg/dL (70-99) Microbiology 10/10/16 Blood Culture - Final, Complete Medications Current Medications Naloxone HCl (Narcan) 2 mg STK-MED ONCE .ROUTE ; Start 10/10/16 at 15:49; Stop at 15:50; Status DC Sodium Chloride 1,000 ml @ 1,000 mls/hr 1X ONCE IV Last administered on 15:56; Start 10/10/16 at 16:15; Stop 10/10/16 at 17:14; Status DC Naloxone HCl (Narcan) 0.4 mg 1X ONCE IV ; Start 10/10/16 at 16:15; Stop 10/10/16 at 16:16; Status DC Acetaminophen (Tylenol) 650 mg 1X ONCE PO Last administered on 10/10/16 16:47 ; Start 10/10/16 at 16:15; Stop 10/10/16 at 16:16; Status DC Ibuprofen (Motrin) 400 mg 1X ONCE PO Last administered on 10/10/16 16:47; Start 10/10/16 at 16:15; Stop 10/10/16 at 16:16; Status DC Naloxone HCl (Narcan) 2 mg 1X ONCE IV Last administered on 10/10/16 15:54; Start 10/10/16 at 16:30; Stop 10/10/16 at 16:32; Status DC Aspirin (Children'S Aspirin) 324 mg 1X ONCE PO Last administered on 10/10/16 16:56; Start 10/10/16 at 16:45; Stop 10/10/16 at 16:46; Status DC Lorazepam (Ativan) 1 mg 1X ONCE IV Last administered on 10/10/16 17:59; Start 10/10/16 at 18:00; Stop 10/10/16 at 18:01; Status DC Ringer's Solution 1,000 ml @ 999 mls/hr 1X ONCE IV Last administered on 18:02; Start 10/10/16 at 18:00; Stop 10/10/16 at 19:00; Status DC Ringer's Solution 1,000 ml @ 999 mls/hr 1X ONCE IV Last administered on 18:36; Start 10/10/16 at 18:00; Stop 10/10/16 at 19:00; Status DC Piperacillin Sod/ Tazobactam Sod 3.375 gm/Sodium Chloride 50 ml @ 100 mls/hr 1X ONCE IV Last administered on 10/10/16 18:43; Start 10/10/16 at 18:45; Stop 10/10/16 at 19:14; Status DC Ondansetron HCl (Zofran) 4 mg PRN Q8HRS PRN IV NAUSEA/VOMITING; Start 10/10/16 at 19:00; Stop 10/11/16 at 18:59 Acetaminophen (Tylenol) 650 mg PRN Q4HRS PRN PO FEVER Last administered on 02:07; Start 10/10/16 at 19:00; Stop 10/11/16 at 18:59 Norepinephrine Bitartrate 250 ml @ 1.875 mls/ hr 1X ONCE IV Last administered on 10/10/16 18:58; Start 10/10/16 at 19:00; Stop 10/11/16 at 09:11; Status DC Norepinephrine Bitartrate 250 ml @ 0 mls/hr 1X ONCE IV ; Start 10/10/16 at 19:00 ; Stop 10/10/16 at 19:01; Status Cancel Amino Acids/ Glycerin/ Electrolytes 1,000 ml @ 80 mls/hr [id number] IV ; Start 10/10/16 at 19:15; Stop 10/10/16 at 19:20; Status DC Famotidine (Pepcid) 20 mg QHS IVP ; Start 10/10/16 at 21:00; Stop 10/10/16 at 21: 00; Status DC Heparin Sodium (Porcine) (Heparin Sq) 5,000 unit Q8HRS SQ ; Start 10/10/16 at 22: 00; Stop 10/10/16 at 22:00; Status DC Piperacillin Sod/ Tazobactam Sod 3.375 gm/Sodium Chloride 50 ml @ 100 mls/hr Q6HRS IV ; Start 10/11/16 at 00:00; Stop 10/11/16 at 00:00; Status DC Piperacillin Sod/ Tazobactam Sod (Zosyn Per Pharmacy) 1 each PRN DAILY PRN MC SEE COMMENTS; Start 10/10/16 at 19:15; Stop 10/10/16 at 19:20; Status DC Vancomycin HCl 1.75 gm/Sodium Chloride 500 ml @ 250 mls/hr 1X ONCE IV ; Start 10/10/16 at 19:15; Stop 10/10/16 at 21:14; Status Cancel Vancomycin HCl (Vanco Per Pharmacy) 1 each PRN DAILY PRN MC SEE COMMENTS; Start 10/10/16 at 19:15; Stop 10/10/16 at 19:20; Status DC Info 1 each PRN DAILY PRN MC SEE COMMENTS Last administered on 10/11/16 09:30; Start 10/10/16 at 21:15 Amino Acids/ Glycerin/ Electrolytes 1,000 ml @ 80 mls/hr [id number] IV Last administered on 10/10/16 21:47; Start 10/10/16 at 21:15; Stop 10/11/16 at 21:00 Insulin Aspart (NovoLOG) 0-9 UNITS TIDWMEALS SQ ; Start 10/11/16 at 08:00 Dextrose (Dextrose 50%-Water Syringe) 12.5 gm PRN Q15MIN PRN IV SEE COMMENTS; Start 10/10/16 at 21:15 Sodium Chloride 2,000 ml @ 500 mls/hr 1X ONCE IV Last administered on 21:47; Start 10/10/16 at 21:30; Stop 10/11/16 at 01:29; Status DC Vancomycin HCl (Vanco Per Pharmacy) 1 each PRN DAILY PRN MC SEE COMMENTS Last administered on 10/11/16 09:26; Start 10/11/16 at 00:15; Stop 10/11/16 at 12:56; Status DC Piperacillin Sod/ Tazobactam Sod (Zosyn Per Pharmacy) 1 each PRN DAILY PRN MC SEE COMMENTS; Start 10/11/16 at 00:15 Piperacillin Sod/ Tazobactam Sod 3.375 gm/Sodium Chloride 50 ml @ 100 mls/hr Q6HRS IV Last administered on 10/11/16 12:21; Start 10/11/16 at 00:30 Vancomycin HCl 1.75 gm/Sodium Chloride 500 ml @ 250 mls/hr 1X ONCE IV ; Start 10/11/16 at 01:00; Stop 10/11/16 at 02:59; Status Cancel Vancomycin HCl 1.75 gm/Sodium Chloride 500 ml @ 250 mls/hr 1X ONCE IV Last administered on 10/11/16 00:23; Start 10/10/16 at 21:00; Stop 10/11/16 at 00:13; Status DC Vancomycin HCl 1.5 gm/Sodium Chloride 500 ml @ 250 mls/hr Q24H IV ; Start at 22:00; Stop 10/11/16 at 22:00; Status DC Vancomycin HCl 1 each 1X ONCE MC ; Start 10/12/16 at 21:30; Stop 10/12/16 at 21: 31; Status Cancel Morphine Sulfate 2 mg PRN Q2HR PRN IV SEVERE PAIN Last administered on 09:54; Start 10/11/16 at 04:30 Furosemide (Lasix) 40 mg 1X ONCE IVP Last administered on 10/11/16 04:46; Start 10/11/16 at 05:00; Stop 10/11/16 at 05:01; Status DC Lorazepam (Ativan) 0.5 mg PRN Q4HRS PRN IV ANXIETY / AGITATION; Start 10/11/16 at 04:30 Albuterol/ Ipratropium (Duoneb) 3 ml RTQID NEB Last administered on 10/11/16 11 :48; Start 10/11/16 at 08:00 Albuterol/ Ipratropium (Duoneb) 3 ml 1X ONCE NEB Last administered on 05:32; Start 10/11/16 at 05:45; Stop 10/11/16 at 05:46; Status DC Naloxone HCl (Narcan) 0.4 mg STK-MED ONCE .ROUTE ; Start 10/11/16 at 06:08; Stop 10/11/16 at 06:09; Status DC Sodium Bicarbonate 50 meq STK-MED ONCE .ROUTE ; Start 10/11/16 at 06:43; Stop 10/11/16 at 06:44; Status DC Vecuronium Convoy (Norcuron Bolus) 10 mg STK-MED ONCE IV ; Start 10/11/16 at 07: 02; Stop 10/11/16 at 07:03; Status DC Phenylephrine HCl 1 mg STK-MED ONCE IV ; Start 10/11/16 at 07:04; Stop 10/11/16 at 07:05; Status DC Sodium Bicarbonate 75 meq/Dextrose 1,075 ml @ 75 mls/hr [id number] IV ; Start 10/11 at 08:00; Status Cancel Sodium Bicarbonate 100 meq 1X ONCE IV Last administered on 10/11/16 07:34; Start 10/11/16 at 07:30; Stop 10/11/16 at 07:31; Status DC Sodium Bicarbonate 50 meq STK-MED ONCE .ROUTE ; Start 10/11/16 at 07:28; Stop 10/11/16 at 07:29; Status DC Sodium Bicarbonate 150 meq/Dextrose 1,150 ml @ 75 mls/hr [id number] IV Last administered on 10/11/16 08:08; Start 10/11/16 at 08:00 Vasopressin 40 unit/Dextrose 102 ml @ 6 mls/hr CONT PRN IV SEE I/O RECORD Last administered on 10/11/16 08:53; Start 10/11/16 at 08:30 Epinephrine HCl 4 mg/Sodium Chloride 254 ml @ 0 mls/hr CONT PRN IV SEE I/O RECORD; Start 10/11/16 at 08:30 Norepinephrine Bitartrate 250 ml @ 0 mls/hr CONT PRN IV SEE I/O RECORD Last administered on 10/11/16 09:12; Start 10/11/16 at 09:15 Sodium Chloride 20 meq/Sodium Acetate 70 meq/ Magnesium Sulfate 10 meq/Calcium Gluconate 5 meq/ Multivitamins 10 ml/Chromium/ Copper/Manganese/ Seleni/Zn 1 ml / Total Parenteral Nutrition/Amino Acids/Dextrose/ Fat Emulsion Intravenous 1, 200 ml @ 50 mls/hr TPN CONT IV ; Start 10/11/16 at 22:00; Stop 10/12/16 at 21:59 Active Scripts Active Senna S Tablet (Sennosides/Docusate Sodium) 1 Each Tablet 1 Each PO DAILY Reported Tubersol (Tuberculin,Purif.prot.deriv.) 5 Tub Unit/0.1 Ml Vial 5 Tub ID UD Tpn Electrolytes Ii Iv Soln (Sodium/K+/Mag/Ca/Chlor/Acetate) 20 Ml Vial Ml IV CONT PRN Polyvinyl Alcohol 15 Ml Drops 15 Ml OP PRN Novolog Flexpen (Insulin Aspart) 100 Unit/1 Ml Insuln.pen Unknown Dose SQ TIDACHC Ms Contin (Morphine Sulfate) 15 Mg Tablet.er 15 Mg PO PRN DAILY PRN Megace Es (Megestrol Acetate) 625 Mg/5 Ml Oral.susp 600 Mg PO DAILY Lipitor (Atorvastatin Calcium) 20 Mg Tablet 20 Mg PO HS Hydrocodone-Apap 5-325 (Hydrocodone Bit/Acetaminophen) 1 Each Tablet 1 Tab PO PRN Q4HRS PRN Famotidine 20 Mg Tablet 20 Mg PO BID Celexa (Citalopram Hydrobromide) 40 Mg Tablet 1 Tab PO DAILY Bisacodyl 10 Mg Supp.rect 10 Mg RC PRN DAILY PRN Biotene Moisturizing Mouth (Saliva Stimulant Agents Comb.3) 44.3 Ml [place] 44.3 Ml MM PRN Acetaminophen 650 Mg/20.3 Ml Solution 650 Mg PO PRN Q6HRS PRN Basaglar Kwikpen U-100 (Insulin Glargine,Hum.rec.anlog) 100 Unit/1 Ml Insuln.pen 10 Unit SQ HS Lyrica (Pregabalin) 150 Mg Capsule 150 Mg PO BID 30 Days Buspirone Hcl 10 Mg Tablet 10 Mg PO BID Aspir 81 (Aspirin) 81 Mg Tablet. 1 Tab PO DAILY Vitals/I & O Vital Sign - Last 24 Hours 10/10/16 10/10/16 10/10/16 10/10/16 15:47 15:56 16:30 17:25 Temp 100.2 100.2 Pulse 105 112 104 100 Resp 14 16 20 20 B/P (MAP) 79/45 (56) 118/65 (82) 112/54 (73) 109/54 (72) Pulse Ox 95 92 92 91 O2 Delivery NonRebreather Mask Nasal Cannula Nasal Cannula Nasal Cannula O2 Flow Rate 15.0 3.0 3.0 3.0 10/10/16 10/10/16 10/10/16 10/10/16 18:06 18:24 18:32 18:39 Temp 98.0 98.0 Pulse 90 90 90 89 Resp 20 16 16 16 B/P (MAP) 99/52 (68) 71/49 (56) 84/52 (63) 86/50 (62) Pulse Ox 93 92 92 93 O2 Delivery Nasal Cannula Nasal Cannula Nasal Cannula Nasal Cannula O2 Flow Rate 3.0 2.0 3.0 3.0 10/10/16 10/10/16 10/10/16 10/10/16 18:45 18:50 18:58 19:05 Pulse 88 86 84 84 Resp 16 16 16 16 B/P (MAP) 83/54 (64) 76/46 (56) 78/49 (59) 87/50 (62) Pulse Ox 94 94 94 94 O2 Delivery Nasal Cannula Nasal Cannula Nasal Cannula Nasal Cannula O2 Flow Rate 3.0 3.0 3.0 3.0 10/10/16 10/10/16 10/10/16 10/10/16 19:15 19:25 19:35 20:00 Pulse 84 86 88 Resp 16 16 16 B/P (MAP) 110/54 (72) 104/57 (73) 99/57 (71) Pulse Ox 94 94 94 O2 Delivery Nasal Cannula Nasal Cannula Nasal Cannula Nasal Cannula O2 Flow Rate 3.0 3.0 3.0 3.0 10/10/16 10/10/16 10/10/16 10/10/16 20:00 20:15 20:30 20:45 Temp 96.9 97.1 96.9 97.1 Pulse 88 88 90 88 Resp 22 20 22 22 B/P (MAP) 106/51 (69) 106/55 (72) 105/57 (73) 95/53 (67) Pulse Ox 96 96 96 95 O2 Delivery Nasal Cannula Nasal Cannula Nasal Cannula Nasal Cannula O2 Flow Rate 3.0 3.0 2.0 2.0 10/10/16 10/10/16 10/10/16 10/10/16 21:00 21:30 22:00 23:00 Temp 97.9 97.9 Pulse 88 88 86 88 Resp 20 20 20 18 B/P (MAP) 98/55 (69) 102/54 (70) 93/52 (66) 103/57 (72) Pulse Ox 97 97 98 96 O2 Delivery Nasal Cannula Nasal Cannula Nasal Cannula Nasal Cannula O2 Flow Rate 2.0 2.0 2.0 2.0 10/10/16 10/11/16 10/11/16 10/11/16 23:59 00:00 01:00 02:00 Pulse 88 87 88 Resp 20 20 20 B/P (MAP) 106/51 (69) 113/69 (84) 100/69 (79) Pulse Ox 97 97 95 O2 Delivery Nasal Cannula Nasal Cannula Nasal Cannula Nasal Cannula O2 Flow Rate 2.0 2.0 2.0 2.0 10/11/16 10/11/16 10/11/16 10/11/16 03:00 04:00 04:00 04:46 Temp 98.0 98.0 Pulse 78 88 Resp 22 34 34 B/P (MAP) 91/49 (63) 111/55 (73) Pulse Ox 95 90 92 O2 Delivery Nasal Cannula Nasal Cannula Nasal Cannula Nasal Cannula O2 Flow Rate 2.0 2.0 2.0 2.0 10/11/16 10/11/16 10/11/16 10/11/16 05:00 05:16 05:32 05:45 Pulse 72 Resp 20 20 B/P (MAP) 107/59 (75) Pulse Ox 93 92 91 O2 Delivery Nasal Cannula Nasal Cannula Venturi Mask O2 Flow Rate 3.0 4.0 15.0 10/11/16 10/11/16 10/11/16 10/11/16 06:00 06:30 07:00 07:10 Temp 97.7 97.7 Pulse 72 93 Resp 20 20 B/P (MAP) 107/59 (75) 117/60 (79) Pulse Ox 91 92 94 95 O2 Delivery Venturi Mask BiPAP/CPAP BiPAP/CPAP BiPAP/CPAP O2 Flow Rate 3.0 10/11/16 10/11/16 10/11/16 10/11/16 07:53 07:58 09:10 09:13 Pulse 90 93 Resp 22 20 B/P (MAP) 117/64 (81) 110/61 (77) Pulse Ox 98 96 97 O2 Delivery Bi-pap BiPAP/CPAP BiPAP/CPAP BiPAP/CPAP 10/11/16 10/11/16 10/11/16 10/11/16 09:54 10:09 10:16 11:17 Pulse 91 88 Resp 22 20 B/P (MAP) 115/61 (79) 104/41 (62) Pulse Ox 97 98 98 97 O2 Delivery BiPAP/CPAP BiPAP/CPAP BiPAP/CPAP BiPAP/CPAP O2 Flow Rate 3.0 3.0 10/11/16 10/11/16 10/11/16 11:39 11:48 12:06 Pulse 87 Resp 20 B/P (MAP) 144/59 (87) Pulse Ox 96 98 O2 Delivery Bi-pap BiPAP/CPAP BiPAP/CPAP O2 Flow Rate 3.0 Intake and Output 10/11/16 10/11/16 10/12/16 15:00 23:00 07:00 Output Total 75 ml Balance -75 ml CASTLE,NIAL K III DO Oct 11, 2016 13:52
--- NOTE | 2016-10-11 16:56 | PDOC ---
PULMONARY PROGRESS NOTES Vitals Vital Signs Date Time Temp Pulse Resp B/P (MAP) Pulse Ox O2 Delivery O2 Flow Rate FiO2 10/11/16 15:49 Bi-pap 3.0 10/11/16 15:36 98 10/11/16 14:59 83 20 108/51 (70) 10/11/16 12:06 98.6 98.6 Labs Laboratory Tests Test 10/10/16 15:50 10/10/16 15:52 10/10/16 16:06 10/10/16 16:12 Glucose (Fingerstick) 329 mg/dL (70-99) O2 Saturation 88 % (92-99) Arterial Blood pH 7.29 (7.35-7.45) Arterial Blood pCO2 at Patient Temp 35 mmHg (35-46) Arterial Blood pO2 at Patient Temp 65 mmHg (65-108) Arterial Blood HCO3 16 mmol/L (21-28) Arterial Blood Base Excess -9 mmol/L (-3-3) FiO2 32 White Blood Count 18.5 x10^3/uL (4.0-11.0) Red Blood Count 3.00 x10^6/uL (3.50-5.40) Hemoglobin 9.1 g/dL (12.0-15.5) Hematocrit 28.8 % (36.0-47.0) Mean Corpuscular Volume 96 fL (79-100) Mean Corpuscular Hemoglobin 30 pg (25-35) Mean Corpuscular Hemoglobin Concent 32 g/dL (31-37) Red Cell Distribution Width 16.3 % (11.5-14.5) Platelet Count 295 x10^3/uL (140-400) Neutrophils (%) (Auto) 89 % (31-73) Lymphocytes (%) (Auto) 8 % (24-48) Monocytes (%) (Auto) 3 % (0-9) Eosinophils (%) (Auto) 0 % (0-3) Basophils (%) (Auto) 0 % (0-3) Neutrophils # (Auto) 16.4 x10^3uL (1.8-7.7) Lymphocytes # (Auto) 1.4 x10^3/uL (1.0-4.8) Monocytes # (Auto) 0.5 x10^3/uL (0.0-1.1) Eosinophils # (Auto) 0.0 x10^3/uL (0.0-0.7) Basophils # (Auto) 0.1 x10^3/uL (0.0-0.2) Segmented Neutrophils % 61 % (35-66) Band Neutrophils % 27 % (0-9) Lymphocytes % 8 % (24-48) Monocytes % 4 % (0-10) Nucleated Red Blood Cells 2 Toxic Granulation Slight Toxic Vacuolation Slight Platelet Estimate Adequate (ADEQUATE) Large Platelets Few Polychromasia Slight Macrocytosis Slight Sodium Level 136 mmol/L (136-145) Potassium Level 4.7 mmol/L (3.5-5.1) Chloride Level 99 mmol/L (98-107) Carbon Dioxide Level 20 mmol/L (21-32) Anion Gap 17 (6-14) Blood Urea Nitrogen 21 mg/dL (7-20) Creatinine 1.8 mg/dL (0.6-1.0) Estimated GFR (Cockcroft-Gault) 33.2 BUN/Creatinine Ratio 12 (6-20) Glucose Level 367 mg/dL (70-99) Calcium Level 9.1 mg/dL (8.5-10.1) Magnesium Level 2.1 mg/dL (1.8-2.4) Total Bilirubin 0.6 mg/dL (0.2-1.0) Aspartate Amino Transf (AST/SGOT) 49 U/L (15-37) Alanine Aminotransferase (ALT/SGPT) 53 U/L (14-59) Alkaline Phosphatase 482 U/L (46-116) Troponin I Quantitative 0.263 ng/mL (0.000-0.055) Total Protein 8.0 g/dL (6.4-8.2) Albumin 1.7 g/dL (3.4-5.0) Albumin/Globulin Ratio 0.3 (1.0-1.7) Urine Collection Type Unknown Urine Color Yellow Urine Clarity Clear Urine pH 5.5 Urine Specific [place] 1.025 Urine Protein 100 mg/dL (NEG-TRACE) Urine Glucose (UA) >=1000 mg/dL (NEG) Urine Ketones (Stick) Negative mg/dL (NEG) Urine Blood Negative (NEG) Urine Nitrite Negative (NEG) Urine Bilirubin Negative (NEG) Urine Urobilinogen Dipstick 0.2 mg/dL (0.2 mg/dL) Urine Leukocyte Esterase Negative (NEG) Urine RBC 0 /HPF (0-2) Urine WBC 1-4 /HPF (0-4) Urine Squamous Epithelial Cells Occ /LPF Urine Amorphous Sediment Present /HPF Urine Bacteria Few /HPF (0-FEW) Urine Mucus Slight /LPF Test 10/10/16 16:29 10/10/16 19:55 10/11/16 03:51 10/11/16 06:00 Prothrombin Time 17.5 SEC (11.7-14.0) Prothromb Time International Ratio 1.5 (0.8-1.1) Lactic Acid Level 8.3 mmol/L (0.4-2.0) 7.0 mmol/L (0.4-2.0) 16.6 mmol/L (0.4-2.0) Ammonia 55 mcmol/L (11-34) Glucose (Fingerstick) 288 mg/dL (70-99) White Blood Count 17.6 x10^3/uL (4.0-11.0) Red Blood Count 2.87 x10^6/uL (3.50-5.40) Hemoglobin 8.9 g/dL (12.0-15.5) Hematocrit 29.0 % (36.0-47.0) Mean Corpuscular Volume 101 fL (79-100) Mean Corpuscular Hemoglobin 31 pg (25-35) Mean Corpuscular Hemoglobin Concent 31 g/dL (31-37) Red Cell Distribution Width 17.1 % (11.5-14.5) Platelet Count 292 x10^3/uL (140-400) Neutrophils (%) (Auto) 79 % (31-73) Lymphocytes (%) (Auto) 11 % (24-48) Monocytes (%) (Auto) 6 % (0-9) Eosinophils (%) (Auto) 5 % (0-3) Basophils (%) (Auto) 0 % (0-3) Neutrophils # (Auto) 13.8 x10^3uL (1.8-7.7) Lymphocytes # (Auto) 1.9 x10^3/uL (1.0-4.8) Monocytes # (Auto) 1.0 x10^3/uL (0.0-1.1) Eosinophils # (Auto) 0.8 x10^3/uL (0.0-0.7) Basophils # (Auto) 0.0 x10^3/uL (0.0-0.2) Sodium Level 140 mmol/L (136-145) Potassium Level 6.4 mmol/L (3.5-5.1) Chloride Level 104 mmol/L (98-107) Carbon Dioxide Level 10 mmol/L (21-32) Anion Gap 26 (6-14) Blood Urea Nitrogen 27 mg/dL (7-20) Creatinine 1.8 mg/dL (0.6-1.0) Estimated GFR (Cockcroft-Gault) 33.2 BUN/Creatinine Ratio 15 (6-20) Glucose Level 234 mg/dL (70-99) Calcium Level 8.6 mg/dL (8.5-10.1) Magnesium Level 2.3 mg/dL (1.8-2.4) Total Bilirubin 0.7 mg/dL (0.2-1.0) Aspartate Amino Transf (AST/SGOT) 134 U/L (15-37) Alanine Aminotransferase (ALT/SGPT) 72 U/L (14-59) Alkaline Phosphatase 258 U/L (46-116) Total Protein 7.2 g/dL (6.4-8.2) Albumin 1.5 g/dL (3.4-5.0) Albumin/Globulin Ratio 0.3 (1.0-1.7) Test 10/11/16 06:12 10/11/16 07:12 10/11/16 07:35 10/11/16 09:10 O2 Saturation 87 % (92-99) 89 % (92-99) 94 % (92-99) Arterial Blood pH 6.88 (7.35-7.45) 7.01 (7.35-7.45) 7.10 (7.35-7.45) Arterial Blood pCO2 at Patient Temp 33 mmHg (35-46) 27 mmHg (35-46) 30 mmHg (35-46) Arterial Blood pO2 at Patient Temp 85 mmHg (65-108) 81 mmHg (65-108) 93 mmHg (65-108) Arterial Blood HCO3 6 mmol/L (21-28) 7 mmol/L (21-28) 9 mmol/L (21-28) Arterial Blood Base Excess -26 mmol/L (-3-3) -23 mmol/L (-3-3) -19 mmol/L (-3-3) FiO2 50 50 Oxyhemoglobin 89.2 % Methemoglobin 0.0 % (0.0-1.9) Carbon Monoxide, Quantitative 0.1 % (0.0-1.9) Glucose (Fingerstick) 185 mg/dL (70-99) Test 10/11/16 12:24 Glucose (Fingerstick) 168 mg/dL (70-99) Laboratory Tests Test 10/10/16 19:55 10/11/16 03:51 10/11/16 06:00 10/11/16 06:12 Lactic Acid Level 7.0 mmol/L (0.4-2.0) 16.6 mmol/L (0.4-2.0) Glucose (Fingerstick) 288 mg/dL (70-99) White Blood Count 17.6 x10^3/uL (4.0-11.0) Red Blood Count 2.87 x10^6/uL (3.50-5.40) Hemoglobin 8.9 g/dL (12.0-15.5) Hematocrit 29.0 % (36.0-47.0) Mean Corpuscular Volume 101 fL (79-100) Mean Corpuscular Hemoglobin 31 pg (25-35) Mean Corpuscular Hemoglobin Concent 31 g/dL (31-37) Red Cell Distribution Width 17.1 % (11.5-14.5) Platelet Count 292 x10^3/uL (140-400) Neutrophils (%) (Auto) 79 % (31-73) Lymphocytes (%) (Auto) 11 % (24-48) Monocytes (%) (Auto) 6 % (0-9) Eosinophils (%) (Auto) 5 % (0-3) Basophils (%) (Auto) 0 % (0-3) Neutrophils # (Auto) 13.8 x10^3uL (1.8-7.7) Lymphocytes # (Auto) 1.9 x10^3/uL (1.0-4.8) Monocytes # (Auto) 1.0 x10^3/uL (0.0-1.1) Eosinophils # (Auto) 0.8 x10^3/uL (0.0-0.7) Basophils # (Auto) 0.0 x10^3/uL (0.0-0.2) Sodium Level 140 mmol/L (136-145) Potassium Level 6.4 mmol/L (3.5-5.1) Chloride Level 104 mmol/L (98-107) Carbon Dioxide Level 10 mmol/L (21-32) Anion Gap 26 (6-14) Blood Urea Nitrogen 27 mg/dL (7-20) Creatinine 1.8 mg/dL (0.6-1.0) Estimated GFR (Cockcroft-Gault) 33.2 BUN/Creatinine Ratio 15 (6-20) Glucose Level 234 mg/dL (70-99) Calcium Level 8.6 mg/dL (8.5-10.1) Magnesium Level 2.3 mg/dL (1.8-2.4) Total Bilirubin 0.7 mg/dL (0.2-1.0) Aspartate Amino Transf (AST/SGOT) 134 U/L (15-37) Alanine Aminotransferase (ALT/SGPT) 72 U/L (14-59) Alkaline Phosphatase 258 U/L (46-116) Total Protein 7.2 g/dL (6.4-8.2) Albumin 1.5 g/dL (3.4-5.0) Albumin/Globulin Ratio 0.3 (1.0-1.7) O2 Saturation 87 % (92-99) Arterial Blood pH 6.88 (7.35-7.45) Arterial Blood pCO2 at Patient Temp 33 mmHg (35-46) Arterial Blood pO2 at Patient Temp 85 mmHg (65-108) Arterial Blood HCO3 6 mmol/L (21-28) Arterial Blood Base Excess -26 mmol/L (-3-3) FiO2 50 Test 10/11/16 07:12 10/11/16 07:35 10/11/16 09:10 10/11/16 12:24 O2 Saturation 89 % (92-99) 94 % (92-99) Arterial Blood pH 7.01 (7.35-7.45) 7.10 (7.35-7.45) Arterial Blood pCO2 at Patient Temp 27 mmHg (35-46) 30 mmHg (35-46) Arterial Blood pO2 at Patient Temp 81 mmHg (65-108) 93 mmHg (65-108) Arterial Blood HCO3 7 mmol/L (21-28) 9 mmol/L (21-28) Arterial Blood Base Excess -23 mmol/L (-3-3) -19 mmol/L (-3-3) Oxyhemoglobin 89.2 % Methemoglobin 0.0 % (0.0-1.9) Carbon Monoxide, Quantitative 0.1 % (0.0-1.9) Glucose (Fingerstick) 185 mg/dL (70-99) 168 mg/dL (70-99) FiO2 50 Medications Active Scripts Medications Dose Route/Sig Max Daily Dose Days Date Category Tubersol (Tuberculin,Purif.prot.deriv.) 5 Tub Unit/0.1 Ml Vial 5 Tub ID UD 10/11/16 Reported Tpn Electrolytes Ii Iv Soln (Sodium/K+/Mag/Ca/Chlor/Acetate) 20 Ml Vial Ml IV CONT PRN 10/11/16 Reported Polyvinyl Alcohol 15 Ml Drops 15 Ml OP PRN 10/11/16 Reported Novolog Flexpen (Insulin Aspart) 100 Unit/1 Ml Insuln.pen Unknown Dose SQ TIDACHC 10/11/16 Reported Ms Contin (Morphine Sulfate) 15 Mg Tablet.er 15 Mg PO PRN DAILY PRN 10/11/16 Reported Megace Es (Megestrol Acetate) 625 Mg/5 Ml Oral.susp 600 Mg PO DAILY 10/11/16 Reported Lipitor (Atorvastatin Calcium) 20 Mg Tablet 20 Mg PO HS 10/11/16 Reported Hydrocodone-Apap 5-325 (Hydrocodone Bit/Acetaminophen) 1 Each Tablet 1 Tab PO PRN Q4HRS PRN 10/11/16 Reported Famotidine 20 Mg Tablet 20 Mg PO BID 10/11/16 Reported Celexa (Citalopram Hydrobromide) 40 Mg Tablet 1 Tab PO DAILY 10/11/16 Reported Bisacodyl 10 Mg Supp.rect 10 Mg RC PRN DAILY PRN 10/11/16 Reported Biotene Moisturizing Mouth (Saliva Stimulant Agents Comb.3) 44.3 Ml [place] 44.3 Ml MM PRN 10/11/16 Reported Acetaminophen 650 Mg/20.3 Ml Solution 650 Mg PO PRN Q6HRS PRN 10/11/16 Reported Basaglar Kwikpen U-100 (Insulin Glargine,Hum.rec.anlog) 100 Unit/1 Ml Insuln.pen 10 Unit SQ HS 10/11/16 Reported Senna S Tablet (Sennosides/Docusate Sodium) 1 Each Tablet 1 Each PO DAILY 8/8/17 Rx Lyrica (Pregabalin) 150 Mg Capsule 150 Mg PO BID 30 09/08/16 Reported Buspirone Hcl 10 Mg Tablet 10 Mg PO BID 09/08/16 Reported Aspir 81 (Aspirin) 81 Mg Tablet.dr 1 Tab PO DAILY 10/09/15 Reported Impression . PT PRIOR TO MY VISIT ALL INFO REVIEWED SPOKE WITH RN ON SEVERAL OCCASION KAYLEIGH JACOBS MD Oct 11, 2016 16:56
[2016-10-11 16:57] LABS: CREATININE 2.7 mg/dL (0.6-1.0); GFR 20.8
[2016-10-11 17:03] LABS: POTASSIUM 7.4 mmol/L (3.5-5.1)
[2016-10-11] MEDS ORDERED: VANCOMYCIN 1.5 GM in IV NORMAL SALINE 500ML BAG 500 ML IV SCH (22:00)
[2016-10-11] MEDS ORDERED: AMINO ACIDS IV SCH ×9 (22:00)
[2016-10-11] MEDS ORDERED: DEXTROSE 70% IV SCH ×9 (22:00)
[2016-10-11] MEDS ORDERED: [UNRECOGNIZED DRUG - OTHER] IV SCH ×9 (22:00)
[2016-10-11] MEDS ORDERED: TOTAL PARENTERAL NUTRITION IV SCH ×9 (22:00)
--- NOTE | 2016-10-12 01:13 | ACF ---
Admission Forms Criteria HEMODYNAMIC INSTABILITY (Place 'X' for any and all applicable criteria): Ongoing inpatient care may be indicated for hemodynamic instability as indicated by 1 or more of the following(1)(2)(3)(4)(10)(16)(17)(18)(19(32)(35): [ ]I) New hypotension [ ]II) Symptomatic heart rate greater than 100 or less than 50 beats per minute unresponsive to treatment (eg, analgesia, fluids) [ ]II) Inadequate perfusion as indicated by ANY ONE of the following: [ ]a) Lactic acidosis, with lactic acid greater than 18 mg/dL (2 mmol/ L) or base excess less than -5 mEq/L [ ]b) New abnormal capillary refill (longer than 3 seconds) [ ]c) New altered mental status [ ]d) Reduced urine output [ ]IV) Orthostatic vital sign changes that are symptomatic and unresponsive to treatment (eg, fluids) (37)(38) [X ]V) Marked hemodynamic change from baseline (eg, SBP 20 mm Hg below patient' s usual pressure) [ ]) IV inotropic or vasopressor medication required(39) Extended stay beyond goal length of stay for primary condition may be needed until ALL of the following are present(1)(2)(3): [ ]a) Heart rate > 60 and < 100 beats per minute or patient is clinically stable at current rate (eg, baseline) [ ]b) SBP >100 mm Hg and <160 mm Hg or patient is clinically stable at current pressure (eg, baseline) [ ]c) DBP greater than 50 mm Hg and less than 100 mm Hg or patient is clinically stable at current pressure (eg, baseline) [ ]d) Urine output greater than 0.5 mL/kg per hour [ ]e) Room air oxygen saturation 90% or greater or at baseline [ ]f) Orthostatic vital sign changes absent, asymptomatic, at baseline, or manageable at lower level of care [ ]g) Medical comorbidities manageable at lower level of care The original [facility] [employer] content created by Glenroy Abrams has been revised. The portions of the content which have been revised are identified through the use of italic text, and Glenroy Abrams has neither reviewed nor approved the modified material. All other unmodified content is copyright [facility] [employer]. Please see references footnoted in the original [facility] edition 2015 Admission Criteria Met?: Yes JACKELIN DAVALOS Oct 12, 2016 01:13
--- NOTE | 2016-10-12 06:39 | CONS ---
DATE OF CONSULTATION: 10/10/2016 This is Jeromy Tomas, nurse practitioner, dictating for Dr. Tim Mejia, Infectious Disease. REFERRING PHYSICIAN: Dr. Campoverde. REASON FOR CONSULTATION: Sepsis. HISTORY OF PRESENT ILLNESS: This patient is a 76-year-old female who is currently on BiPAP and unresponsive, unable to provide history of present illness, past medical history or review of systems. According to the medical record and nursing staff, she has a history of a stage 4 uterine cancer, status post surgery and adjuvant chemotherapy and radiation in 08/2014. She is followed by Dr. Funk at for surveillance. Recently, she was admitted to [facility] for small bowel obstruction and had undergone exploratory laparotomy, lysis of adhesions and gastrostomy tube placement on 09/25. She was found to have extensive miliary disease in the lower abdominal and pelvis areas. A pathology report showed metastatic, poorly differential adenocarcinoma. She was discharged to [facility] where reportedly she had been receiving some opioids for postsurgical pain control and developed decreased responsiveness and hypoxia requiring 100% oxygen nonrebreather. She received a dose of Narcan in the ER with some improvement initially. She was found to have an elevated white blood cell count of 18,500; segs 61%; bands 27%. Initial lactic acid level 8.3 and now up to 16.6. Blood cultures have returned with Gram-positive cocci in 1 of 2 bottles so far. She is on vancomycin and piperacillin/tazobactam. She is in acute renal failure with decreased urine output. She is hypotensive, requiring 2 vasopressors. She is now on BiPAP with FiO2 of 50%. CT abdomen and pelvis without IV contrast revealed a pneumoperitoneum within the left upper quadrant; [id number] left pleural effusion with lower lobe consolidation or collapse; large amount of stool within the rectal vault. A followup chest CT revealed a large partially loculated left pleural effusion with partial consolidation and collapse of the left lung. She was evaluated by General Surgery with no surgical plans. The patient has been having fevers off and on for the past week or so. Her family is present. The patient's code status was changed to DNR per their request. She has a Port-A-Cath that has been in place for more than 2 years. She also has a right upper extremity PICC line that was present on admission. PAST MEDICAL HISTORY: As mentioned above. Hypertension, diabetes mellitus, coronary artery disease. PAST SURGICAL HISTORY: As mentioned above, coronary artery bypass graft, total abdominal hysterectomy and SBO. FAMILY HISTORY: Positive for hypertension. ALLERGIES: IV DYE, INFLUENZA VIRUS VACCINE. ROS : unable to do MEDICATIONS: Vancomycin, piperacillin/tazobactam, vasopressin, epinephrine drip. Other medications are available and have been reviewed on the APR. PHYSICAL EXAMINATION: GENERAL: female, softly moaning, on BiPAP. VITAL SIGNS: Temperature is 97.7, T-max 100.2, blood pressure 104/41, heart rate 88, respiratory rate 20, pulse oximetry is 97% on BiPAP, FiO2 50%. Weight 203 pounds, BMI 30. HEENT: Pupils are equally round and reactive, on BiPAP. Oral exam deferred. LUNGS: Diminished aeration. HEART: Normal S1 and S2. ABDOMEN: Distended, soft, sounds quiet. Gastrostomy tube is intact. Lower abdominal surgical wound slightly opened with purulent drainage. GENITOURINARY: Damon in place. EXTREMITIES: No gross edema or cyanosis. Cool. SKIN: Without rash. NEUROLOGIC: Unresponsive to verbal or tactile stimulation. LINES: PUE-PICC and Port-A-Cath. Clean. LABORATORY DATA: Today's WBC 17.6; hemoglobin 8.9; platelet count 292,000. Sodium 140, potassium 6.4, creatinine 1.8, BUN 27, bicarb 10. Lactic acid 16.6, glucose 234. AST 134, ALT 72. Total bilirubin 0.7, albumin 1.4. Urinalysis unremarkable for infection. Blood cultures show gram-positive cocci in 1-2 bottles. MRSA screen pending. IMAGING: Per HPI. Today's chest x-ray shows a large left pleural effusion and aerated left lung. Right pulmonary vascular congestion is not excluded. IMPRESSION: 1. Septic shock with likely peritoneal infection present on admission. 2. Gram-positive bacteremia present on admission. 3. Lactic acidosis. 4. Pneumoperitoneum, status post exploratory laparotomy, lysis of adhesions and gastrostomy tube placement on 09/25/2016. 5. Acute encephalopathy. 6. Acute kidney injury. 7. Acute respiratory failure with large left pleural effusion, partial consolidation and collapse of the left lung. 8. Recurrent uterine cancer with metastasis. PLAN: Given the patient's renal function, we will hold further doses of vancomycin and continue the piperacillin/tazobactam. Await gram-positive cocci identification and susceptibilities. Monitor laboratory values. Patient's condition was discussed with the patient's family. She is critically ill and not likely to survive hospitalization. Thank you, Dr. Campoverde, for asking us to participate in this patient's care. Should you have further questions or concerns, please call. The patient is seen and examined and plan of care implemented by Dr. Tim Mejia. TIM MEJIA MD DR: YAMILE/shani JOB#: [id number] / [id number] [place]
== END 2016-10-11 14:30 | disposition expired | DRG 871 ==
LOC: ER 15:47 → 1 WEST ICU 18:23
PROVIDERS: ADMIT Internal Medicine; ATTEND Internal Medicine
PROC: 5A09357 Assistance with Respiratory Ventilation, Less than 24 Consecutive Hours, Continuous Positive Airway Pressure (ICD-10-PCS; principal; 2016-10-11)
DX: A41.9 Sepsis, unspecified organism (principal); G93.40 Encephalopathy, unspecified; J96.01 Acute respiratory failure with hypoxia; R65.21 Severe sepsis with septic shock; N17.9 Acute kidney failure, unspecified; J90 Pleural effusion, not elsewhere classified; C79.9 Secondary malignant neoplasm of unspecified site; K66.8 Other specified disorders of peritoneum; C55 Malignant neoplasm of uterus, part unspecified; T40.601A Poisoning by unspecified narcotics, accidental (unintentional), initial encounter; E11.9 Type 2 diabetes mellitus without complications; B96.89 Other specified bacterial agents as the cause of diseases classified elsewhere; E78.00 Pure hypercholesterolemia, unspecified; E78.5 Hyperlipidemia, unspecified; I10 Essential (primary) hypertension; I25.10 Atherosclerotic heart disease of native coronary artery without angina pectoris; Z66 Do not resuscitate; E66.9 Obesity, unspecified; C76.2 Malignant neoplasm of abdomen; E87.6 Hypokalemia; Z51.5 Encounter for palliative care; Z60.2 Problems related to living alone; Z82.49 Family history of ischemic heart disease and other diseases of the circulatory system; Z85.42 Personal history of malignant neoplasm of other parts of uterus; Z87.891 Personal history of nicotine dependence; Z90.49 Acquired absence of other specified parts of digestive tract; Z90.710 Acquired absence of both cervix and uterus; Z95.1 Presence of aortocoronary bypass graft; Z91.041 Radiographic dye allergy status; Z93.1 Gastrostomy status; Z68.30 Body mass index [BMI] 30.0-30.9, adult
CPT/HCPCS: 36415; 36600; 51702; 71010; 71250; 74176; 80048; 80053; 81001; 82140; 82805; 82962; 83605; 83735; 84484; 85007; 85025; 85610; 87040; 87205; 87641; 93005; 94640; 94660; 96361; 96365; 96375; J0171; J1815; J1940; J2060; J2270; J2310; J2370; J2543; J3370; J3490; J7030; J7040; J7050; J7120; J7620; 99291-25